=== PATIENT | female | born 1950 | race Hispanic/Latino ===

== ENCOUNTER 2018-09-20 07:05 | Emergency (ER) | payer OTHER ==
[2018-09-20] MEDS ORDERED: LIDOCAINE VISCOUS 2% SOLN 15 ML UDC ONE (07:40)
[2018-09-20] MEDS ORDERED: MAGNE/ALUM HYDROXD 30 ML UCUP ONE (07:40)
[2018-09-20 07:47] LABS: Absolute Lymphocytes (CBC) 2.1 K/uL (0.7-4.9); Absolute Monocytes 0.4 K/uL (0.1-1.3); Absolute Neutrophil 4.7 K/uL (1.8-8.0); Basophils % 0.5 % (0-1.3); Eosinophils % 3.8 % (0-4.4); Hematocrit 41.3 % (36.0-45.0); MPV 8.5 fL (7.6-11.3); Monocytes % 5.7 % (3.3-12.3); RBC Red Blood Cell Count 4.34 M/uL (3.86-4.86)
[2018-09-20 07:51] LABS: Protime INR 0.95
--- NOTE | 2018-09-20 08:11 | RAD REPORT ---
EXAM DESCRIPTION: RAD - Chest Single View - 09/20/2018 8:04 am CLINICAL HISTORY: CHEST PAIN Chest pain. COMPARISON: Chest Single View dated 03/21/2017; Chest Single View dated 08/12/2016; CHEST SINGLE VIEW dated 06/08/2015; CHEST SINGLE VIEW dated 04/16/2015 FINDINGS: Portable technique limits examination quality. The lungs are grossly clear. The heart is normal in size. No displaced fractures. IMPRESSION: No acute intrathoracic process suspected.
[2018-09-20 08:15] LABS: ALT/SGPT 35 U/L (12-78); AST/SGOT 25 U/L (15-37); Albumin 3.8 g/dL (3.4-5.0); Alkaline Phosphatase 96 U/L (45-117); BUN Blood Urea Nitrogen 14 mg/dL (7-18); Bicarbonate 27 mmol/L (21-32); Bilirubin Direct 0.2 mg/dL (0-0.2); Bilirubin Total 0.6 mg/dL (0.2-1.0); Glucose Level 116 mg/dL (74-106); Magnesium 2.1 mg/dL (1.8-2.4); NT PRO-BNP 62 pg/mL (<125); Protein, Total 7.4 g/dL (6.4-8.2); Sodium Level 141 mmol/L (136-145); Troponin (Emerg Dept Use Only) < 0.02 ng/mL (0.0-0.045)
--- NOTE | 2018-09-20 10:29 | EKG ---
Test Date: 2018-09-20 Test Time: 09:06:12 [place] Press Operator: JUVENAL MEASUREMENT RESULTS: Intervals: Rate: 50 GA: 176 QRSD: 82 QT: 408 QTc: 371 [place]: P: 19 GA: 176 QRS: -9 T: 1 INTERPRETIVE STATEMENTS: Sinus bradycardia with marked sinus arrhythmia Minimal voltage criteria for LVH, may be normal variant Borderline ECG Compared to ECG 08/20/2018 07:35:37 Sinus rhythm no longer present Electronically Signed On 09-20-18 10:28:42 PLATING TECHNICIAN by London Ball
--- NOTE | 2018-09-20 10:31 | EKG ---
Test Date: 2018-08-20 Test Time: 07:35:37 Manager [place]: JUVENAL MEASUREMENT RESULTS: Intervals: Rate: 60 W[place]: 168 QRSD: 82 QT: 378 QTc: 378 [place]: P: 21 WY: 168 QRS: -10 T: 14 INTERPRETIVE STATEMENTS: Sinus rhythm with marked sinus arrhythmia Minimal voltage criteria for LVH, may be normal variant Borderline ECG Compared to ECG 03/21/2017 01:04:26 Left ventricular hypertrophy now present Sinus bradycardia no longer present Electronically Signed On 09-20-18 10:30:06 TEST PILOT by London Ball
--- NOTE | 2018-09-20 10:44 | ER ---
Nurse's Notes [facility] Name: Katya Hinojosa Age: 68 yrs Sex: Female : 1950 Arrival Date: 09/20/2018 Time: 07:07 Bed 18 Private MD: Diagnosis: Chest pain, unspecified Presentation: 09/20 07:23 Presenting complaint: Patient states: i started having a burning sensation on my hj stomach that moves to my throat that started 1 am today; reports nausea, denies vomiting; reports chest pain; denies fever and chills;. Transition of care: patient was not received from another setting of care. Onset of symptoms was September 20, 2018. Risk Assessment: Do you want to hurt yourself or someone else? Patient reports no desire to harm self or others. Initial Sepsis Screen: Does the patient meet any 2 criteria? No. Patient's initial sepsis screen is negative. Does the patient have a suspected source of infection? No. Patient's initial sepsis screen is negative. Care prior to arrival: None. 07:23 Method Of Arrival: Ambulatory 07:23 Acuity: AMAYA 3 hj Triage Assessment: 07:26 General: Appears in no apparent distress. uncomfortable, Behavior is calm, cooperative, hj appropriate for age. Pain: Complains of pain in chest Pain radiates to back. EENT: No signs and/or symptoms were reported regarding the EENT system. Historical: - Allergies: 07:25 No Known Allergies; hj - Home Meds: 07:25 clonidine HCl 0.1 mg Oral tab PRN [Active]; levothyroxine 100 mcg oral tab 1 tab once hj daily [Active]; lisinopril 10 mg oral tab 1 tab once daily [Active]; - PMHx: 07:25 Diabetes - NIDDM; High Cholesterol; Hypertension; Hypothyroidism; hj - PSHx: 07:25 Thyroidectomy; hj - Immunization history:: Adult Immunizations up to date. - Social history:: Smoking status: Patient/guardian denies using tobacco, Patient/guardian denies using alcohol. - Ebola Screening: : Patient negative for fever greater than or equal to 101.5 degrees Fahrenheit, and additional compatible Ebola Virus Disease symptoms Patient denies exposure to infectious person Patient denies travel to an Ebola-affected area in the 21 days before illness onset. Screenin:26 Abuse screen: Denies threats or abuse. Denies injuries from another. Nutritional hj screening: No deficits noted. Tuberculosis screening: No symptoms or risk factors identified. Fall Risk None identified. Assessment: 07:26 Respiratory: Airway is patent Respiratory effort is even, unlabored, Respiratory hj pattern is regular, symmetrical, Breath sounds are clear. EENT: 07:27 EENT: Throat Reports pain. hj 07:30 General: Appears in no apparent distress. uncomfortable, Behavior is calm, cooperative, hj appropriate for age. Pain: Complains of pain in chest Pain radiates to back. Neuro: Level of Consciousness is awake, alert, obeys commands, Oriented to person, place, time, situation, Appropriate for age. Cardiovascular: Rhythm is sinus bradycardia. GI: No signs and/or symptoms were reported involving the gastrointestinal system. : No signs and/or symptoms were reported regarding the genitourinary system. Derm: No signs and/or symptoms reported regarding the dermatologic system. Musculoskeletal: No signs and/or symptoms reported regarding the musculoskeletal system. 08:30 Reassessment: Patient and/or family updated on plan of care and expected duration. Pain hj level reassessed. Patient is alert, oriented x 3, equal unlabored respirations, skin warm/dry/pink. awaiting results and POC;. 09:00 Reassessment: HR drops to 43; MD notified with orders to repeat cardiac enzymes and hj EKG;. 10:55 Reassessment: Patient and/or family updated on plan of care and expected duration. Pain hj level reassessed. Patient is alert, oriented x 3, equal unlabored respirations, skin warm/dry/pink. Patient states feeling better. Patient states symptoms have improved. Vital Signs: 07:27 BP 128 / 65; Pulse 56; Resp 18; Temp 98.1(TE); Pulse Ox 100% on R/A; Weight 90.72 kg; hj Height 5 ft. 5 in. (165.10 cm); Pain 510; 08:30 BP 143 / 76; Pulse 60; Resp 18; Pulse Ox 100% on R/A; hj 09:00 BP 138 / 75; Pulse 43; Resp 18; Pulse Ox 100% on R/A; hj 09:40 BP 140 / 67; Pulse 48; Resp 18; Pulse Ox 100% on R/A; hj 10:55 BP 138 / 68; Pulse 50; Resp 18; Pulse Ox 100% on R/A; hj 07:27 Body Mass Index 33.28 (90.72 kg, 165.10 cm) hj 09:00 notified; with orders; hj ED Course: 07:07 Patient arrived in ED. rg4 07:13 Carlos Yap, RN is Primary Nurse. hj 07:13 Pedro Anderson PA is PHCP. jmm 07:13 Simon Chen MD is Attending Physician. jmm 07:25 Triage completed. hj 07:27 Arm band placed on right wrist. hj 07:27 Patient has correct armband on for positive identification. Placed in gown. Bed in low hj position. Call light in reach. Side rails up X 1. Adult w/ patient. 07:36 Initial lab(s) drawn, by me, sent to lab. Inserted saline lock: 22 gauge in right mh5 antecubital area, using aseptic technique. Blood collected. 07:37 Warm blanket given. school lunch monitor on. Pulse ox on. NIBP on. mh5 07:38 Basic Metabolic Panel Sent. mh5 07:38 CBC with Diff Sent. mh5 07:38 LFT's Sent. mh5 07:38 Magnesium Sent. mh5 07:38 NT PRO-BNP Sent. mh5 07:38 PT-INR Sent. mh5 07:38 Troponin (emerg Dept Use Only) Sent. mh5 07:44 EKG done, by technical marketing consultant. reviewed by Pedro DIAS. at1 08:02 X-ray completed. Portable x-ray completed in exam room. Patient tolerated procedure jb2 well. 08:08 XRAY Chest (1 view) In Process Unspecified. EDMS 09:24 EKG done, by technical marketing consultant. reviewed by Pedro DIAS. at1 10:43 London Ball MD is Referral Physician. jmm 10:55 No provider procedures requiring assistance completed. IV discontinued, intact, hj bleeding controlled, No redness/swelling at site. Pressure dressing applied. Administered Medications: 07:22 Drug: GI Cocktail without - (Maalox Suspension 30 ml, Lidocaine Liquid 2 % 15 hj ml) Route: PO; 09:01 Follow up: Response: No adverse reaction hj Outcome: 10:43 Discharge ordered by . jmm 10:56 Discharged to home ambulatory. hj 10:56 Condition: stable 10:56 Discharge instructions given to patient, Instructed on discharge instructions, follow up and referral plans. medication usage, Demonstrated understanding of instructions, follow-up care, medications, Prescriptions given X 1. 10:57 Patient left the ED. Signatures: Dispatcher [employer] EDMS Pedro Anderson PA PA jmm Buechter, Jesse jb2 Elenita Sultana, alterations manager EKG Tat1 Carlos Yap, SEKOU RN Lis Smith Katya Vazquez [facility] Corrections: (The following items were deleted from the chart) 09:40 07:27 90.72 kg; Height 5 ft. 5 in.; BMI: 33.2; Pain 5/10; jeremie chao
--- NOTE | 2018-09-20 10:44 | EDPHYS ---
Physician Documentation [facility] Name: Katya Hinojosa Age: 68 yrs Sex: Female : 1950 Arrival Date: 09/20/2018 Time: 07:07 Bed 18 Private MD: ED Physician Simon Chen HPI: 09/20 07:20 This 68 yrs old Female presents to ER via Ambulatory with complaints of Sore jmm Throat. 07:20 The patient presents with sore throat. Onset: The symptoms/episode began/occurred jmm gradually, at 01:00. Associated signs and symptoms: Pertinent positives: Pertinent negatives fever, shortness of breath. This is a 68 year old female with a history of DM, HTN, hypothyroidism that presents to the ED with complaints of sore throat radiating down her sternum region and to her back Patient denies fever, cough, shortness of breath. Patient denies abdominal pain, denies vomiting or diarrhea. Patient states that she ate house sauce before going to bed but denies similar symptoms in the past. . Historical: - Allergies: 07:25 No Known Allergies; hj - Home Meds: 07:25 clonidine HCl 0.1 mg Oral tab PRN [Active]; levothyroxine 100 mcg oral tab 1 tab once hj daily [Active]; lisinopril 10 mg oral tab 1 tab once daily [Active]; - PMHx: 07:25 Diabetes - NIDDM; High Cholesterol; Hypertension; Hypothyroidism; hj - PSHx: 07:25 Thyroidectomy; hj - Immunization history:: Adult Immunizations up to date. - Social history:: Smoking status: Patient/guardian denies using tobacco, Patient/guardian denies using alcohol. - Ebola Screening: : Patient negative for fever greater than or equal to 101.5 degrees Fahrenheit, and additional compatible Ebola Virus Disease symptoms Patient denies exposure to infectious person Patient denies travel to an Ebola-affected area in the 21 days before illness onset. ROS: 07:20 Constitutional: Negative for fever, chills, and weight loss, Respiratory: Negative for jmm shortness of breath, cough, wheezing, and pleuritic chest pain. 07:20 Abdomen/GI: Negative for abdominal pain, nausea, vomiting, diarrhea, and constipation, Back: Negative for injury and pain. 07:20 ENT: Positive for sore throat. 07:20 Cardiovascular: Positive for chest pain. 07:20 All other systems are negative. Exam: 07:20 Constitutional: This is a well developed, well nourished patient who is awake, alert, jmm and in no acute distress. Head/Face: atraumatic. Eyes: EOMI, no conjunctival erythema appreciated ENT: Moist Mucus Membranes Neck: Trachea midline, Supple Chest/axilla: Normal chest wall appearance and motion. Cardiovascular: Regular rate and rhythm. No edema appreciated Respiratory: Normal respirations, no respiratory distress appreciated 07:20 Back: Normal ROM Skin: General appearance color normal MS/ Extremity: Moves all extremities, no obvious deformities appreciated, no edema noted to the lower extremities Neuro: Awake and alert, normal gait Psych: Behavior is normal, Mood is normal, Patient is cooperative and pleasant 07:20 Abdomen/GI: Inspection: abdomen appears normal, Bowel sounds: normal, Palpation: abdomen is soft and non-tender, in all quadrants. Vital Signs: 07:27 BP 128 / 65; Pulse 56; Resp 18; Temp 98.1(TE); Pulse Ox 100% on R/A; Weight 90.72 kg; hj Height 5 ft. 5 in. (165.10 cm); Pain 5/10; 08:30 BP 143 / 76; Pulse 60; Resp 18; Pulse Ox 100% on R/A; hj 09:00 BP 138 / 75; Pulse 43; Resp 18; Pulse Ox 100% on R/A; hj 09:40 BP 140 / 67; Pulse 48; Resp 18; Pulse Ox 100% on R/A; hj 10:55 BP 138 / 68; Pulse 50; Resp 18; Pulse Ox 100% on R/A; hj 07:27 Body Mass Index 33.28 (90.72 kg, 165.10 cm) 09:00 MD notified; with orders; MDM: 07:20 Patient medically screened. mechelle 10:40 Data reviewed: vital signs, nurses notes. Test interpretation: by ED physician or jmm midlevel provider: ECG. Counseling: I had a detailed discussion with the patient and/or guardian regarding: the historical points, exam findings, and any diagnostic results supporting the discharge/admit diagnosis, lab results, radiology results, to return to the emergency department if symptoms worsen or persist or if there are any questions or concerns that arise at home. Response to treatment: the patient's symptoms have mildly improved after treatment. ED course: Repeat enzymes negative. Symptoms appear most likely GI in nature. Due to comorbidities, it is advised to follow up with cardiology and given strict return precautions. Patient understood and agrees with the plan of care. . 09/20 07:20 Order name: Basic Metabolic Panel; Complete Time: 08:41 [facility] 09/20 07:20 Order name: CBC with Diff; Complete Time: 08:05 [facility] 09/20 07:20 Order name: LFT's; Complete Time: 08:41 [facility] 09/20 07:20 Order name: Magnesium; Complete Time: 08:41 [facility] 09/20 07:20 Order name: NT PRO-BNP; Complete Time: 08:41 [facility] 09/20 07:20 Order name: PT-INR; Complete Time: 08:05 [facility] 09/20 07:20 Order name: Troponin (emerg Dept Use Only); Complete Time: 08:41 [facility] 09/20 07:20 Order name: XRAY Chest (1 view); Complete Time: 08:12 [facility] 09/20 07:20 Order name: EKG; Complete Time: 07:21 [facility] 09/20 07:20 Order name: Cardiac monitoring; Complete Time: 07:22 [facility] 09/20 09:01 Order name: EKG; Complete Time: 09:03 09/20 09:11 Order name: Troponin (emerg Dept Use Only); Complete Time: 10:04 09/20 09:35 Order name: TSH; Complete Time: 10:31 [facility] 09/20 07:20 Order name: EKG - Nurse/Tech; Complete Time: 07:32 [facility] 09/20 07:20 Order name: IV Saline Lock; Complete Time: 07:32 [facility] 09/20 07:20 Order name: Labs collected and sent; Complete Time: 07:32 [facility] 09/20 07:20 Order name: O2 Per Protocol; Complete Time: 07:22 [facility] 09/20 07:20 Order name: O2 Sat Monitoring; Complete Time: 07:23 [facility] 09/20 09:01 Order name: Repeat Cardiac Enzymes at; Complete Time: 09:09 Administered Medications: 07:22 Drug: GI Cocktail without - (Maalox Suspension 30 ml, Lidocaine Liquid 2 % 15 hj ml) Route: PO; 09:01 Follow up: Response: No adverse reaction Disposition: 11:45 Co-signature as Attending Physician, Simon Chen MD. rn Disposition: 09/20/18 10:43 Discharged to Home. Impression: Chest pain, unspecified. - Condition is Stable. - Discharge Instructions: Nonspecific Chest Pain. - Prescriptions for omeprazole 40 mg Oral capsule,delayed release(DR/EC) - take 1 capsule by ORAL route once daily before a meal; 14 capsule. - Medication Reconciliation Form, Thank You Letter, Antibiotic Education, Prescription Opioid Use form. - Follow up: London Ball MD; When: 2 - 3 days; Reason: Recheck today's complaints, Continuance of care, Re-evaluation by your physician. Signatures: Dispatcher [employer] EDMS Wilner Beth MD MD cha Mickail, Joel, PA PA jmm Nieto, Roman, MD MD rn Joaquin, Henry, RN RN hj Corrections: (The following items were deleted from the chart) 10:43 10:43 09/20/2018 10:43 Discharged to Home. Impression: Other chest pain. Condition is [facility] Stable. Forms are Medication Reconciliation Form, Thank You Letter, Antibiotic Education, Prescription Opioid Use. Follow up: London Ball; When: 2 - 3 days; Reason: Recheck today's complaints, Continuance of care, Re-evaluation by your physician. [facility] 10:57 10:43 09/20/2018 10:43 Discharged to Home. Impression: Chest pain, unspecified. Condition is Stable. Forms are Medication Reconciliation Form, Thank You Letter, Antibiotic Education, Prescription Opioid Use. Follow up: London Ball; When: 2 - 3 days; Reason: Recheck today's complaints, Continuance of care, Re-evaluation by your physician. [facility]
[2018-09-20 11:07] VITALS: TEMP 98.1; O2SAT 100
[2018-09-20 11:16] VITALS: BP 138/68
== END 2018-09-20 10:57 | disposition home or self-care (01) ==
LOC: ER 07:05
DX: R07.9 Chest pain, unspecified (principal); I10 Essential (primary) hypertension; E11.9 Type 2 diabetes mellitus without complications; E03.9 Hypothyroidism, unspecified; E78.00 Pure hypercholesterolemia, unspecified
CPT/HCPCS: 36415; 71045; 80048; 80076; 83735; 83880; 84443; 84484; 85025; 85610; 93005; 99285

== ENCOUNTER 2019-04-25 21:08 | Emergency (ER) | payer OTHER ==
--- OUTSIDE RECORDS SUMMARY | 2019-04-25 21:09 | XMS REPORT ---
:1950 [facility] Organization [facility] Address [address] [place] [address] Dr. Balderas [address] [place] [id number] Care Team Providers Name Role Phone Unavailable Unavailable Unavailable Problems This patient has no known problems. Allergies, Adverse Reactions, Alerts This patient has no known allergies or adverse reactions. Medications This patient has no known medications.
--- OUTSIDE RECORDS SUMMARY | 2019-04-25 21:09 | XMS REPORT ---
:1950 Author Organization [employer] Care Team Providers Name Role Phone Jayesh Reid Provider Role Unavailable Allergies, Adverse Reactions, Alerts Substance Reaction Event Type N.K.D.A. Info Not Available Non Drug Allergy Problems Problem Type Condition Code Onset Dates Condition Status Assessment Acquired hypothyroidism E03.9 Active Assessment Gastroesophageal reflux disease K21.9 Active without esophagitis Assessment History of diabetes mellitus Z86.39 Active Assessment Primary osteoarthritis, unspecified M19.91 Active site Problem Gastroesophageal reflux disease K21.9 Active without esophagitis Problem History of diabetes mellitus Z86.39 Active Problem Primary osteoarthritis, unspecified M19.91 Active site Assessment Essential hypertension I10 Active Problem Essential hypertension I10 Active Problem Acquired hypothyroidism E03.9 Active Medications Medication Code Code Instructions Start End Status Dosage System Date Date [place] [facility] 17344156997 262 MG/15ML November Active 30 ml as Subsalicylate Orally Four 2018 30, needed times a day 2018 Prilosec OTC ND 86647641795 20 MG Orally Sep 28, Active 1 tablet Once a day 2018 Lisinopril ND 37876783368 10 MG Orally Sep 28, Active 1 tablet Once a day 2018 Levothyroxine [facility] 09389291853 100 MCG Orally Active 1 tablet Sodium Once a day on an empty stomach in the morning Results No Known Results Summary Purpose [employer]ClinicalWorks Submission
--- OUTSIDE RECORDS SUMMARY | 2019-04-25 21:09 | XMS REPORT ---
:1950 Author Organization [employer] Care Team Providers Name Role Phone Jayesh Reid Provider Role Unavailable Allergies, Adverse Reactions, Alerts Substance Reaction Event Type N.K.D.A. Info Not Available Non Drug Allergy Problems Problem Type Condition Code Onset Dates Condition Status Assessment Acquired hypothyroidism E03.9 Active Assessment Viral gastroenteritis A08.4 Active Assessment Essential hypertension I10 Active Assessment Encounter for screening mammogram Z12.31 Active for malignant neoplasm of breast Assessment Encounter for general adult medical Z00.00 Active examination without abnormal findings Problem Gastroesophageal reflux disease K21.9 Active without esophagitis Problem History of diabetes mellitus Z86.39 Active Problem Primary osteoarthritis, unspecified M19.91 Active site Assessment History of diabetes mellitus Z86.39 Active Problem Essential hypertension I10 Active Problem Acquired hypothyroidism E03.9 Active Medications Medication Code Code Instructions Start End Status Dosage System Date Date Levothyroxine ND 02632501890 100 MCG Orally Active 1 tablet Sodium Once a day on an empty stomach in the morning Prilosec OTC ND 36178361100 20 MG Orally Sep 28, Active 1 tablet Once a day 2018 Lisinopril ND 56631968166 10 MG Orally Sep 28, Active 1 tablet Once a day 2018 Promethazine HCl ND 84003547505 25 MG Orally February 13February Active 1 tablet every 6 hrs 2018 07, as needed 2018 Results No Known Results Summary Purpose eClinicalWorks Submission
--- OUTSIDE RECORDS SUMMARY | 2019-04-25 21:09 | XMS REPORT ---
:1950 Author Organization [employer] Care Team Providers Name Role Phone JeanetteJayesh Provider Role Unavailable Allergies, Adverse Reactions, Alerts Substance Reaction Event Type N.K.D.A. Info Not Available Non Drug Allergy Problems Problem Type Condition Code Onset Dates Condition Status Assessment Language barrier affecting health Z78.9 Active care Assessment Sinus bradycardia R00.1 Active Assessment History of diabetes mellitus Z86.39 Active Assessment Acquired hypothyroidism E03.9 Active Problem Acquired hypothyroidism E03.9 Active Problem Gastroesophageal reflux disease K21.9 Active without esophagitis Problem Essential hypertension I10 Active Assessment Essential hypertension I10 Active Assessment Gastroesophageal reflux disease K21.9 Active without esophagitis Problem History of diabetes mellitus Z86.39 Active Medications Medication Code Code Instructions Start End Status Dosage System Date Date Levothyroxine [facility] 87479366049 100 MCG Orally Active 1 tablet Sodium Once a day on an empty stomach in the morning Lisinopril ND 18028637895 20 MG Orally Sep 28, Active 1 tablet Once a day 2018 Lisinopril ND 43480082458 10 MG Orally Active 1 tablet Once a day Prilosec OTC [facility] 57560787517 20 MG Orally b , Active 1 tablet Once a day 2018 Results No Known Results Summary Purpose eClinicalWorks Submission
--- OUTSIDE RECORDS SUMMARY | 2019-04-25 21:09 | XMS REPORT ---
:1950 Author Organization [employer] Care Team Providers Name Role Phone Patsy Coleman Provider Role Unavailable Allergies, Adverse Reactions, Alerts Substance Reaction Event Type N.K.D.A. Info Not Available Non Drug Allergy Problems Problem Type Condition Code Onset Dates Condition Status Assessment Encounter for gynecological Z01.419 Active examination without abnormal finding Problem Essential hypertension I10 Active Assessment BMI 32.0-32.9,adult Z68.32 Active Assessment Screening for colon cancer Z12.11 Active Problem Encounter for gynecological Z01.419 Active examination without abnormal finding Problem BMI 32.0-32.9,adult Z68.32 Active Problem Screening for colon cancer Z12.11 Active Problem Acquired hypothyroidism E03.9 Active Problem History of diabetes mellitus Z86.39 Active Problem Primary osteoarthritis, unspecified M19.91 Active site Problem Gastroesophageal reflux disease K21.9 Active without esophagitis Medications Medication Code Code Instructions Start End Status Dosage System Date Date Prilosec OTC NDC 28196421474 20 MG Orally Sep 28, Active 1 tablet Once a day 2018 Levothyroxine ND 51439542746 100 MCG Orally Active 1 tablet on Sodium Once a day an empty stomach in the morning Lisinopril NDC 35270780068 10 MG Orally Sep 28, Active 1 tablet Once a day 2018 Nystatin ND 75765511193 449392 UNIT/GM Mar 20, Active 1 application Externally 2019 to affected Twice a day area Results Name Result Date Reference Range Unit Abnormality Flag Occult (Guiac) Blood, Fecal, IA ----Occult Blood, Fecal, IA neg [id number] Summary Purpose eClinicalWorks Submission
--- OUTSIDE RECORDS SUMMARY | 2019-04-25 21:09 | XMS REPORT ---
:1950 Author Organization [employer] Care Team Providers Name Role Phone Jayesh Reid Provider Role Unavailable Allergies No Known Allergies Problems Problem Type Condition Code Onset Dates Condition Status Problem Gastroesophageal reflux disease K21.9 Active without esophagitis Problem History of diabetes mellitus Z86.39 Active Problem Primary osteoarthritis, unspecified M19.91 Active site Problem Essential hypertension I10 Active Problem Acquired hypothyroidism E03.9 Active Medications No Known Medications Results No Known Results Summary Purpose [employer] Submission
[2019-04-25] MEDS ORDERED: DIPHENHYDRAMINE 50 MG/ML VIAL ONE (22:38)
[2019-04-25] MEDS ORDERED: NA CHLORIDE 0.9% 1,000 ML ONE (22:38)
[2019-04-25] MEDS ORDERED: METOCLOPRAMIDE 10 MG/2mL INJ ONE (22:38)
[2019-04-25 22:40] LABS: Absolute Lymphocytes (CBC) 2.7 K/uL (0.7-4.9); Basophils % 0.5 % (0-1.3); Hematocrit 37.7 % (36.0-45.0); Lymphocytes % 31.9 % (15.3-44.8); MPV 8.4 fL (7.6-11.3); RBC Red Blood Cell Count 3.94 M/uL (3.86-4.86)
[2019-04-25 22:56] LABS: ALT/SGPT 43 U/L (12-78); AST/SGOT 33 U/L (15-37); Albumin 3.4 g/dL (3.4-5.0); Alkaline Phosphatase 98 U/L (45-117); BUN Blood Urea Nitrogen 16 mg/dL (7-18); Bicarbonate 25 mmol/L (21-32); Bilirubin Total 0.3 mg/dL (0.2-1.0); Glucose Level 135 mg/dL (74-106); Potassium 3.8 mmol/L (3.5-5.1); Protein, Total 6.5 g/dL (6.4-8.2); Sodium Level 142 mmol/L (136-145)
--- NOTE | 2019-04-26 00:45 | EDPHYS ---
Physician Documentation [facility] Name: Katya Hinojosa Age: 69 yrs Sex: Female : 1950 Arrival Date: 04/25/2019 Time: 21:20 Bed 15 Private MD: ED Physician Wilner Beth HPI: 04/25 22:02 This 69 yrs old Female presents to ER via Ambulatory with complaints of High jmm Blood Pressure. 22:02 The patient complains of pain to the forehead, right eye and left eye. Onset: The jmm symptoms/episode began/occurred gradually, 5 hour(s) ago. Associated signs and symptoms: Pertinent positives: blurred vision, Pertinent negatives: vomiting. Headache History: The patient has had previous headaches and this one is similar to previous episodes. This is a 69 year old female with a history of htn, hypothyroidism that presents to the ED with complaints of headache which began on the left side of the head with blurred vision. Headache is now retro orbital bilaterally. Vision is not normal. Denies unilateral weakness or numbness. . Historical: - Allergies: 21:37 No Known Allergies; aa5 - Home Meds: 21:37 lisinopril 10 mg Oral tab 1 tab once daily [Active]; levothyroxine 100 mcg tab 1 tab aa5 once daily [Active]; clonidine HCl 0.1 mg Oral tab PRN [Active]; - PMHx: 21:37 Hypertension; Hypothyroidism; aa5 - PSHx: 21:37 Thyroidectomy; aa5 - Immunization history:: Adult Immunizations unknown. - Social history:: Smoking status: Patient/guardian denies using tobacco. - Ebola Screening: : No symptoms or risks identified at this time. ROS: 22:02 Constitutional: Negative for fever, chills, and weight loss, Cardiovascular: Negative jmm for chest pain, palpitations, and edema, Respiratory: Negative for shortness of breath, cough, wheezing, and pleuritic chest pain. 22:02 Eyes: Positive for blurry vision. 22:02 Neuro: Positive for headache. 22:02 All other systems are negative. Exam: 22:02 Constitutional: This is a well developed, well nourished patient who is awake, alert, jmm and in no acute distress. Head/Face: atraumatic. Eyes: EOMI, no conjunctival erythema appreciated ENT: Moist Mucus Membranes Neck: Trachea midline, Supple Chest/axilla: Normal chest wall appearance and motion. Cardiovascular: Regular rate and rhythm. No edema appreciated Respiratory: Normal respirations, no respiratory distress appreciated Abdomen/GI: Non distended, soft Back: Normal ROM Skin: General appearance color normal MS/ Extremity: Moves all extremities, no obvious deformities appreciated, no edema noted to the lower extremities 22:02 Neuro: Orientation: is normal, Mentation: is normal, Memory: is normal, Cerebellar function: normal finger to nose testing. 22:02 Psych: Behavior/mood is pleasant, cooperative. Vital Signs: 21:38 BP 142 / 65; Pulse 72; Resp 18 S; Temp 98.5(O); Pulse Ox 97% on R/A; Weight 89.36 kg aa5 (R); Height 5 ft. 5 in. (165.10 cm) (R); Pain 9/10; 22:15 BP 138 / 54; Pulse 66; Resp 16; Pulse Ox 98% on R/A; jb4 23:15 BP 128 / 55; Pulse 55; Resp 16; Pulse Ox 98% on R/A; jb4 04/26 00:00 BP 117 / 56; Pulse 49; Resp 16; Pulse Ox 98% on R/A; jb4 01:30 BP 111 / 55; Pulse 55; Resp 16; Pulse Ox 98% on R/A; jb4 04/25 21:38 Body Mass Index 32.78 (89.36 kg, 165.10 cm) aa5 MDM: 04/25 21:47 Patient medically screened. [facility] 04/26 00:40 Data reviewed: vital signs, nurses notes. Counseling: I had a detailed discussion with anita the patient and/or guardian regarding: the historical points, exam findings, and any diagnostic results supporting the discharge/admit diagnosis, lab results, radiology results, the need for outpatient follow up, to return to the emergency department if symptoms worsen or persist or if there are any questions or concerns that arise at home. ED course: ULRICH is relieved in the ED. Patient advised to follow up with neuro for further evaluation of headache. Patient is otherwise given strict return precautions. patient understood and agrees with the plan of care. . 04/25 22:01 Order name: CBC with Diff; Complete Time: 23:00 anita 04/25 22:01 Order name: CMP; Complete Time: 23:00 [facility] 04/25 22:01 Order name: CT Head Brain wo Cont [facility] 04/25 22:01 Order name: Saline Lock; Complete Time: 22:22 [facility] Administered Medications: 04/25 23:01 Drug: diphenhydrAMINE 12.5 mg Route: IVP; Site: right antecubital; [facility] 04/26 01:25 Follow up: Response: No adverse reaction [facility] 04/25 23:05 Drug: NS 0.9% 1000 ml Route: IV; Rate: 1 bolus; Site: right antecubital; [facility] 04/26 01:25 Follow up: Response: No adverse reaction; IV Status: Completed infusion; IV Intake: [facility] 1000ml 04/25 23:05 Drug: Reglan 10 mg {Note: administered in Bolus of NS.} Route: IVP; Site: right [facility]; 04/26 01:25 Follow up: Response: No adverse reaction [facility] Disposition: 04/26/19 00:41 Discharged to Home. Impression: Headache. - Condition is Stable. - Discharge Instructions: Migraine Headache. - Prescriptions for Fiorinal 50- 325-40 mg Oral Capsule - take 1 capsule by ORAL route every 4 hours As needed - not to exceed 6 capsules per day; 20 capsule. - Medication Reconciliation Form, Thank You Letter, Antibiotic Education, Prescription Opioid Use form. - Follow up: Christopher Hoover MD; When: 2 - 3 days; Reason: Recheck today's complaints, Continuance of care, Re-evaluation by your physician. Addendum: 04/30/2019 08:24 Co-signature as Attending Physician, Wilner Beth MD I agree with the assessment and c ulrich plan of care. Signatures: Dispatcher [employer] EDWilner Yusuf MD MD cha Mickail, Joel, PA PA Amna Pratt, RN RN aa5 Nehemiah Lundberg, SEKOU RN jb4 Corrections: (The following items were deleted from the chart) 04/26 01:35 00:41 04/26/2019 00:41 Discharged to Home. Impression: Headache. Condition is Stable. jb4 Forms are Medication Reconciliation Form, Thank You Letter, Antibiotic Education, Prescription Opioid Use. Follow up: Christopher Hooevr; When: 2 - 3 days; Reason: Recheck today's complaints, Continuance of care, Re-evaluation by your physician. anita
--- NOTE | 2019-04-26 00:45 | ER ---
Nurse's Notes [facility] Name: Katya Hinojosa Age: 69 yrs Sex: Female : 1950 Arrival Date: 04/25/2019 Time: 21:20 Bed 15 Private MD: Diagnosis: Headache Presentation: 04/25 21:35 Presenting complaint: Patient states: frontal headache that began 2-3 days ago, pt aa5 reports pain to left side of head is worse than to right side of head. Pt also reports nausea, denies vomiting. Pt states "the left side of my face is hurting too so maybe is my teeth". Transition of care: patient was not received from another setting of care. Onset of symptoms was April 2019. Risk Assessment: Do you want to hurt yourself or someone else? Patient reports no desire to harm self or others. Initial Sepsis Screen: Does the patient meet any 2 criteria? No. Patient's initial sepsis screen is negative. Does the patient have a suspected source of infection? No. Patient's initial sepsis screen is negative. Care prior to arrival: None. 21:35 Method Of Arrival: Ambulatory aa5 21:35 Acuity: AMAYA 3 aa5 Historical: - Allergies: 21:37 No Known Allergies; aa5 - Home Meds: 21:37 lisinopril 10 mg Oral tab 1 tab once daily [Active]; levothyroxine 100 mcg tab 1 tab aa5 once daily [Active]; clonidine HCl 0.1 mg Oral tab PRN [Active]; - PMHx: 21:37 Hypertension; Hypothyroidism; aa5 - PSHx: 21:37 Thyroidectomy; aa5 - Immunization history:: Adult Immunizations unknown. - Social history:: Smoking status: Patient/guardian denies using tobacco. - Ebola Screening: : No symptoms or risks identified at this time. Screenin:50 Abuse screen: Denies threats or abuse. Nutritional screening: No deficits noted. jb4 Tuberculosis screening: No symptoms or risk factors identified. Fall Risk None identified. Assessment: 21:50 General: Appears in no apparent distress. uncomfortable, Behavior is calm, cooperative, jb4 appropriate for age. Pain: Complains of pain in forehead Pain does not radiate. Pain currently is 8 out of 10 on a pain scale. Quality of pain is described as pressure. Neuro: Level of Consciousness is awake, alert, obeys commands, Oriented to person, place, time, situation. Cardiovascular: Patient's skin is warm and dry. Respiratory: Airway is patent Respiratory effort is even, unlabored, Respiratory pattern is regular, symmetrical. GI: No deficits noted. No signs and/or symptoms were reported involving the gastrointestinal system. : No deficits noted. No signs and/or symptoms were reported regarding the genitourinary system. EENT: No deficits noted. No signs and/or symptoms were reported regarding the EENT system. Derm: Skin is intact, Skin is pink, warm \\T\\ dry. Musculoskeletal: Circulation, motion, and sensation intact. 23:00 Reassessment: Patient appears in no apparent distress at this time. Patient and/or jb4 family updated on plan of care and expected duration. Pain level reassessed. Patient is alert, oriented x 3, equal unlabored respirations, skin warm/dry/pink. 04/26 00:00 Reassessment: Patient appears in no apparent distress at this time. Patient and/or jb4 family updated on plan of care and expected duration. Pain level reassessed. Patient is alert, oriented x 3, equal unlabored respirations, skin warm/dry/pink. Patient states feeling better. 01:30 Reassessment: Patient appears in no apparent distress at this time. Patient and/or jb4 family updated on plan of care and expected duration. Pain level reassessed. Patient is alert, oriented x 3, equal unlabored respirations, skin warm/dry/pink. Vital Signs: 04/25 21:38 BP 142 / 65; Pulse 72; Resp 18 S; Temp 98.5(O); Pulse Ox 97% on R/A; Weight 89.36 kg aa5 (R); Height 5 ft. 5 in. (165.10 cm) (R); Pain 9/10; 22:15 BP 138 / 54; Pulse 66; Resp 16; Pulse Ox 98% on R/A; jb4 23:15 BP 128 / 55; Pulse 55; Resp 16; Pulse Ox 98% on R/A; jb4 04/26 00:00 BP 117 / 56; Pulse 49; Resp 16; Pulse Ox 98% on R/A; jb4 01:30 BP 111 / 55; Pulse 55; Resp 16; Pulse Ox 98% on R/A; jb4 04/25 21:38 Body Mass Index 32.78 (89.36 kg, 165.10 cm) aa5 ED Course: 04/25 21:20 Patient arrived in ED. aa5 21:35 Arm band placed on. aa5 21:36 Triage completed. aa5 21:46 Pedro Anderson PA is PHCP. jmm 21:46 Wilner Beth MD is Attending Physician. jmm 21:50 Patient has correct armband on for positive identification. Bed in low position. Call jb4 light in reach. Side rails up X 1. Pulse ox on. NIBP on. 21:55 Nehemiah Lundberg, SEKOU is Primary Nurse. jb 22:23 Initial lab(s) drawn, by pa, sent to lab. Inserted saline lock: 20 gauge in right em1 antecubital area, using aseptic technique. Blood collected. 22:42 CT completed. Patient tolerated procedure well. Patient moved to CT via stretcher. Patient moved back from CT. 22:46 CT Head Brain wo Cont In Process Unspecified. EDMS 04/26 00:41 Christopher Hoover MD is Referral Physician. [facility] 01:30 No provider procedures requiring assistance completed. IV discontinued, intact, jb4 bleeding controlled, No redness/swelling at site. Pressure dressing applied. Administered Medications: 04/25 23:01 Drug: diphenhydrAMINE 12.5 mg Route: IVP; Site: right antecubital; jb4 04/26 01:25 Follow up: Response: No adverse reaction jb4 04/25 23:05 Drug: NS 0.9% 1000 ml Route: IV; Rate: 1 bolus; Site: right antecubital; jb4 04/26 01:25 Follow up: Response: No adverse reaction; IV Status: Completed infusion; IV Intake: jb4 1000ml 04/25 23:05 Drug: Reglan 10 mg {Note: administered in Bolus of NS.} Route: IVP; Site: right jb4 antecubital; 04/26 01:25 Follow up: Response: No adverse reaction jb4 Intake: 01:25 IV: 1000ml; Total: 1000ml. jb4 Outcome: 00:41 Discharge ordered by . jm 01:30 Discharged to home ambulatory, with family. [facility] 01:30 Condition: stable 01:30 Discharge instructions given to patient, family, Instructed on discharge instructions, follow up and referral plans. medication usage, Demonstrated understanding of instructions, follow-up care, medications, Prescriptions given X 1. 01:35 Patient left the ED. jb4 Signatures: Dispatcher [employer] EDMS Pedro Anderson PA PA jmm Hagler, Ervin eh Martinez, Eric em1 Amna Roman RN RN aa5 Nehemiah Lundberg RN RN jb4 Corrections: (The following items were deleted from the chart) 04/25 21:38 21:35 Presenting complaint: Patient states: frontal headache that began 2-3 days ago, aa5 pt reports pain to left side of head is worse than to right side of head. Pt also reports nausea, denies vomiting. aa5 21:38 21:38 BP 142 / 65; Pulse 72bpm; Resp 18bpm; Spontaneous; Pulse Ox 97% RA; Temp 98.5F aa5 Oral; 89.36 kg Reported; Height 5 ft. 5 in. Reported; BMI: 32.7; aa5
[2019-04-26 01:41] VITALS: TEMP 98.5
[2019-04-26 01:43] VITALS: O2SAT 98
[2019-04-26 01:46] VITALS: BP 117/56
--- NOTE | 2019-04-27 13:30 | RAD REPORT ---
EXAM DESCRIPTION: Head Brain Wo Cont CLINICAL HISTORY: 69 years Female, HEADACHE CLINICAL HISTORY: 5 mm axial images were obtained along with 3 mm reformatted coronal and sagittal i mages. This exam was performed according to our departmental dose-optimization program, which includes autom ated exposure control, adjustment of the mA and/or kV according to patient size and/or use of iterati ve reconstruction technique. COMPARISON: None. FINDINGS: No acute abnormal extracerebral fluid collections are demonstrated. The cortical sulci, ventricles, and cisterns are within normal limits. There are no areas of altered attenuation identified to suggest acute hemorrhage or infarction. There is a calcified mass along the superior aspect of the left tentorium which is stable prior study . This measures 0.9 x 0.7 cm. This may represent a calcified meningioma.. The visualized portions of the paranasal sinuses and mastoid air cells are clear. IMPRESSION: 1. There are no acute intracranial abnormalities. Electronically signed by: Jordin Lim MD 04/25/2019 11:03 PM CDT Due to temporary technical issues with the PACS/Fluency reporting system, reports are being signed by the in house radiologist as a courtesy to ensure prompt reporting. The interpreting radiologist is f ully responsible for the content of the report.
== END 2019-04-26 01:35 | disposition home or self-care (01) ==
LOC: ER 21:08
DX: R51 Headache (principal); I10 Essential (primary) hypertension; E03.9 Hypothyroidism, unspecified
CPT/HCPCS: 96361; 85025; 36415; 80053; 70450; 96375; 96374; 99284; J2765; J7030

== ENCOUNTER 2020-04-05 04:52 | Emergency (ER) | payer OTHER ==
--- OUTSIDE RECORDS SUMMARY | 2020-04-05 04:55 | XMS REPORT ---
:1950 Author Organization [employer] Care Team Providers Name Role Phone Cheryle Zamudioh Provider Role Unavailable Allergies, Adverse Reactions, Alerts Substance Reaction Event Type N.K.D.A. 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 Problem Screening for colon cancer Z12.11 A ctive Problem Type 2 diabetes mellitus with E11.65 Active hyperglycemia, without long-term current use of insulin Problem Primary osteoarthritis involving M89.49 Active multiple joints Assessment Encounter for screening mammogram Z12.31 Active for malignant neoplasm of breast Problem History of diabetes mellitus Z86.39 Active Problem Essential hypertension I10 Activ e Assessment Medicare annual wellness visit, Z00.00 Active subsequent Problem Acquired hypothyroidism E03.9 Acti ve Problem Gastroesophageal reflux disease K21.9 Active without esophagitis Medications Medication Code Code Instructions Start End Status Dosage System Date Date Lisinopril ND 61973798080 10 MG Orally Sep 28, Active 1 ta blet Once a day 2018 Restasis [place] 95410290378 0.05 % January 09, Active 1 drop into Ophthalmic 2020 affected eye Twice a day as needed Prilosec OTC NDC 08563873718 20 MG Orally Sep 28, Active 1 tablet Once a day 2018 Levothyroxine ND 70164707001 100 MCG Orally Active 1 tablet on Sodium Once a day an empty stomach in the morning Metformin HCl NDC 00183405612 500 MG Orally Active 1 tablet with bid a meal Nystatin ND 71110452967 171140 UNIT/GM Mar 20, Active 1 ap plication Externally 2019 to affected Twice a day area Results No Known Results Summary Purpose [employer] Submission
--- OUTSIDE RECORDS SUMMARY | 2020-04-05 04:55 | XMS REPORT ---
:1950 Author Organization [employer] Care Team Providers Name Role Phone Mike Zamudio Provider Role Unavailable Allergies No Known Allergies Problems Problem Type Condition Code Onset Dates Condition Statu s Problem Gastroesophageal reflux disease K21.9 Active without esophagitis Problem BMI 32.0-32.9,adult Z68.32 Active Problem Primary osteoarthritis, unspecified M19.91 Active site Problem Body mass index (BMI) 32.0-32.9, Z68.32 Active adult Problem Type 2 diabetes mellitus with E11.65 Active hyperglycemia, without long-term current use of insulin Problem Other obesity due to excess E66.09 Active calories Problem Screening for colon cancer Z12.11 A ctive Problem Encounter for gynecological Z01.419 Active examination without abnormal finding Problem Primary osteoarthritis involving M89.49 Active multiple joints Problem Diabetes 1.5, 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
--- OUTSIDE RECORDS SUMMARY | 2020-04-05 04:55 | XMS REPORT ---
:1950 Author Organization [employer] Care Team Providers Name Role Phone Robb Mike Provider Role Unavailable Allergies, Adverse Reactions, Alerts Substance Reaction Event Type N.K.D.A. Info Not Available Non Drug Allergy Problems Problem Type Condition Code Onset Dates Condition Statu s Problem Primary osteoarthritis, unspecified M19.91 Active site Problem Encounter for gynecological Z01.419 Active examination without abnormal finding Problem BMI 32.0-32.9,adult Z68.32 Active Problem Other obesity due to excess E66.09 Active calories Assessment Other obesity due to excess E66.09 Active calories Problem Body mass index (BMI) 32.0-32.9, Z68.32 Active adult Assessment Body mass index (BMI) 32.0-32.9, Z68.32 Active adult Assessment Mixed hyperlipidemia E78.2 Active Problem Mixed hyperlipidemia E78.2 Active Problem Diabetes 1.5, 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 Problem Screening for colon cancer Z12.11 A ctive Problem Type 2 diabetes mellitus with E11.65 Active hyperglycemia, without long-term current use of insulin Problem Primary osteoarthritis involving M89.49 Active multiple joints Assessment Gastroesophageal reflux disease K21.9 Active without esophagitis Assessment Acquired hypothyroidism E03.9 Acti ve Assessment Primary osteoarthritis involving M89.49 Active multiple joints Assessment Essential hypertension I10 Activ e Problem History of diabetes mellitus Z86.39 Active Problem Essential hypertension I10 Activ e Assessment Type 2 diabetes mellitus with E11.65 Active hyperglycemia, without long-term current use of insulin Problem Acquired hypothyroidism E03.9 Acti ve Problem Gastroesophageal reflux disease K21.9 Active without esophagitis Medications Medication Code Code Instructions Start End Status Dosage System Date Date Levothyroxine ND 89035019286 100 MCG Orally Active 1 tablet on Sodium Once a day an empty stomach in the morning Lisinopril ND 66974104295 10 MG Orally Active 1 ta blet Once a day Lipitor ND 51313411547 10 MG Orally January Active 1 table t Once a day 2019 Restasis [facility] 35179874182 0.05 % January 09, Active 1 drop into Ophthalmic 2020 affected eye Twice a day as needed Metformin HCl ND 75767947593 500 MG Orally Active 1 tablet with bid a meal Nystatin [facility] 44584473268 995437 UNIT/GM Mar 20, Active 1 ap plication Externally 2018 to affected Twice a day area Prilosec OTC ND 14804975826 20 MG Orally Active 1 tablet Once a day Xigduo XR [facility] 03762046283 5-1000 MG January Active 1 tablet Orally Once a 17, 15, day 2019 2019 Results No Known Results Summary Purpose eClinicalWorks Submission
--- OUTSIDE RECORDS SUMMARY | 2020-04-05 04:55 | XMS REPORT | Continuity of Care Document ---
:1950 Author Organization [facility] t Address [address] [place] [address] Care Team Providers Name Role Phone Lab, Jesus Hickmanb I Attending Clinician Unavailable Problems Condition Condition Condition Status Onset Resolution Last Treating Co mments Source Name Details Category Date Date Treatment Clinician Date History of History of Problem Active [facility] diabetes diabetes [facility] - mellitus mellitus [facility] Acquired Acquired Problem [facility] hyp[facility]roi hypothyroi Cira k[facility] - dism dism [facility] l [facility] Gastroesop Gastroesop Problem Active [facility] hageal hageal [facility] - reflux reflux Memoria disease disease l without without Outpati esophagiti esophagiti en t s s Clinics Essential Essential Problem Active [facility] hypertensi hypertensi Cira kes - on on [facility]oria l [facility] Primary Primary Problem Active [facility] osteoarthr osteoarthr Cira kes - itis, itis, Memoria unspecifie unspecifie l d site d site [facility] Encounter Encounter Problem Active [facility] for for [facility] - gynecologi gynecologi Me moria tito tito l examinatio examinatio Ou tpati n without n without ent abnormal abnormal Clinic s finding finding Body mass Body mass Problem Active [facility] index index [facility] - (BMI) (BMI) Memoria 32.0-32.9, 32.0-32.9, l adult adult [facility] Screening Screening Problem Active [facility] for colon for colon [facility] - cancer cancer Memoria l [facility] Diabetes Diabetes Problem Active [facility] 1.5, 1.5, [facility] - managed as managed as Me moria type 2 type 2 l Outpati ent Clinics Type 2 Type [address] [facility] diabetes diabetes [facility] - mellitus mellitus Memori a with with l hyperglyce hyperglyce Ou tpati mignon, mignon, ent without without Clinics long-term long-term current current use of use of insulin insulin Other Other Problem Active [facility] obesity obesity [facility] - due to due to Memoria excess excess l calories calories Outpat i ent Clinics Primary Primary Problem Active [facility] osteoarthr osteoarthr Cira kes - itis itis Memoria involving involving l multiple multiple Outpat i joints joints ent Clinics Mixed Mixed Problem Active [facility] hyperlipid hyperlipid Cira kes - emia emia Memoria l Outpati ent Clinics Dysuria Dysuria Diagnosis [facility] Acute Acute Diagnosis Active [facility] pyelonephr pyelonephr Cira kes - itis itis Memoria l Outpati ent Clinics Allergies, Adverse Reactions, Alerts This patient has no known allergies or adverse reactions. Medications Ordered Filled Start Stop Current Ordering Indication Dosage Frequency Signature Comments Components Source Medication Medication Date Date Medication? Clinician (SIG) Name Name Cher Kwon 2020- Yes Mike [address] [facility] 8-20 08-30 Zamudio [facility] - 00:00: 00:00 Memoria 00 :00 l Outpati ent Clinics Ondansetron Ondansetron Yes Mike [address] [facility] HCl HCl 7-24 Zamudio [facility] - 00:[facility]: Memoria 00 l Outpati ent Clinics Jardiance Jardiance Yes Mike [address] [facility] 7-24 Zamudio [facility] - 00:00: Memoria 00 l Outpati ent Clinics MetFORMIN MetFORMIN Yes Mike [address] [facility] HCl ER HCl ER 7-14 Zamudoi with meal [facility] - 00:00: Memoria 00 l Outpati ent Clinics Tradjenta Tradjenta 0 Yes Mike [address] [facility] 7-14 Zamudio [facility] - 00:00: Memoria 00 l Outpati ent Clinics Restasis Restasis Yes Mike [address] 5-28 Zamudio into [facility] - 00:00: affected Memoria 00 eye as l needed Outpati ent Clinics Nystatin Nystatin Yes Mike [address] [facility] 8-06 Zamudio applicatio [facility] - 00:00: n to Memoria 00 affected l area Outpati ent Clinics Lipitor Lipitor Yes Mike [address] [facility] Zamudio [facility] l Outpati ent Clinics Lisinopril Lisinopril Yes Mike [address] [facility] [address] Zamudio kes - [facility] l Outpati ent Clinics Prilosec Prilosec Yes Mike [address] O[address] [facility] [facility] - [facility] l Outpati ent Clinics Levothyroxi Levothyroxi Yes Mike [address] [facility] ne Sodium ne Sodium Zamudio on an Melissa es - empty [facility] stomach in l the Outpati morning ent Clinics Procedures This patient has no known procedures. Encounters Start End Encounter Admission Attending Care Care Encounter Source Date/Time Date/Time Type Type Clinicians Facility Department ID 2020-04-03 2020-04-03 Laboratory Lab, [facility] [id number] 15:59:39 16:19:39 Only [facility] [id number] [place] [id number] Professio [id number] nal 0[address] 2020-04-03 2020-04-03 [facility] [id number] [facility] 11:15:00 11:15:00 t [facility] Medicine Outpati ent Clinics 2020-03-07 2020-03-07 [facility] [id number] [address] 08:15:00 08:15:00 t [facility] Medicine Outpati ent Clinics 2020-02-27 2020-02-27 [facility] [id number] [address] 11:04:00 11:04:00 t [facility] Medicine Outpati ent Clinics 2020-02-25 2020-02-25 [facility] [id number] 10:39:00 10:39:00 t [facility] Medicine Outpati ent Clinics 2020-01-30 2020-01-30 [facility] [id number] [address] 15:45:00 15:45:00 t [facility] Medicine Outpati ent Clinics 2020-01-30 2020-01-30 [facility] [id number] [address] 15:45:00 15:45:[address] [place] [address] Luke s - Drive [facility] Medicine l Medicine Outpati ent Clinics 2020-01-09 2020-01-09 [facility] [id number] 11:17:00 11:17:[address] [place] [address] Luke s - Drive [facility] Medicine l Medicine Outpati ent Clinics 2019-11-27 2019-11-27 [facility] [id number] 14:00:00 14:00:00 [place] [employer] Luke s - Drive [facility] Medicine l Medicine Outpati ent Clinics 2019-05-22 2019-05-22 [facility] [id number] 16:00:00 16:00:00 t [facility] Medicine l Medicine Outpati ent Clinics 2019-05-08 2019-05-08 [facility] [id number] 16[facility]15:00 16:15:[address] t [facility] [address] [facility] Medicine l Medicine Outpati ent Clinics 2019-03-20 2019-03-20 [facility] [id number] 08:20:00 08:20:00 t [facility] Medicine Medicine Outpati ent Clinics 2019-02-13 2019-02-13 [facility] [id number] 16:15:00 16:15:[address] t [facility] [address] [facility] Medicine Medicine Outpati ent Clinics 2018-11-24 2018-11-24 [facility] [id number] 16:23:00 16:23:00 t [facility] [address] [facility] Medicine Medicine Outpati ent Clinics 2018-11-13 2018-11-13 [facility] [id number] 16:30:00 16:30:[address] t [facility] [address] [facility] l Medicine Outpati ent Clinics 2018-09-28 2018-09-28 [facility] [id number] 15:00:00 15:00:00 t [facility] Medicine Medicine Outpati ent Clinics Results This patient has no known results.
--- OUTSIDE RECORDS SUMMARY | 2020-04-05 04:55 | XMS REPORT ---
[...] insulin Problem Acquired hypothyroidism E03.9 Acti ve Assessment Nausea alone R11.0 Active Problem Gastroesophageal reflux disease K21.9 Active without esophagitis Medications Medication Code Code Instructions Start End Status Dosage System Date Date Nystatin [facility] 13015220729 912181 UNIT/GM Mar 20, Active 1 ap plication Externally 2019 to affected Twice a day area Ondansetron HCl ND 76756057657 4 MG Orally February Active 1 tablet BID PRN Nausea 2019 Lipitor ND 21991300858 10 MG Orally Active 1 table t Once a day Xigduo XR ND 71995295634 5-1000 MG February Inactive 1 table t Orally Once a 24, day 2019 Ondansetron HCl ND 96153763145 4 MG Orally February Inactive 1 tablet Once a dayBID , prn nausea 2019 Restasis ND 16208551963 0.05 % January 09, Active 1 drop into Ophthalmic 2019 affected eye Twice a day as needed Lisinopril ND 88609567159 10 MG Orally Active 1 ta blet Once a day Tradjenta ND 66687421270 5 MG Orally February Active 1 tabl et Once a day 2019 MetFORMIN HCl ER ND 20976139590 500 MG Orally February Activ e 2 tablets twice a day , with meal 2019 Prilosec OTC [facility] 43116520187 20 MG Orally Active 1 tablet Once a day Jardiance ND 85368045339 10 MG Orally February Active 1 tab let Once a day 2019 Levothyroxine ND 16016502790 100 MCG Orally Active 1 tablet on Sodium Once a day an empty stomach in the morning Results Name Result Date Reference Range Unit Abnormali ty Flag HEMOGLOBIN A1C ----A1C 9.3 [id number] Summary Purpose eClinicalWorks Submission
--- OUTSIDE RECORDS SUMMARY | 2020-04-05 04:55 | XMS REPORT ---
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
--- OUTSIDE RECORDS SUMMARY | 2020-04-05 04:56 | XMS REPORT ---
:1950 Author Organization eClinicalWorks Care Team Providers Name Role Phone Robb Mike Provider Role Unavailable Allergies No Known Allergies Problems Problem Type Condition Code Onset Dates Condition Statu s Problem Primary osteoarthritis, unspecified M19.91 Active site Problem Encounter for gynecological Z01.419 Active examination without abnormal finding Problem BMI 32.0-32.9,adult Z68.32 Active Problem History of diabetes mellitus Z86.39 Active Problem Essential hypertension I10 Activ e Problem Acquired hypothyroidism E03.9 Acti ve Problem Gastroesophageal reflux disease K21.9 Active without esophagitis Problem Other obesity due to excess E66.09 Active calories Problem Body mass index (BMI) 32.0-32.9, Z68.32 Active adult Problem Mixed hyperlipidemia E78.2 Active Problem Diabetes 1.5, 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
--- OUTSIDE RECORDS SUMMARY | 2020-04-05 04:56 | XMS REPORT | Summary of Care ---
:1950 Author Organization [facility] Address [address] [place] [address] Care Team Providers Name Role Phone Breann Alejandre MD Primary Care Provider Reason for Visit Reason Comments Exposure LAB Encounter Details Date Type Department Care Team Description 04/03/2020 Laboratory Only [facility] Family KarenDavid, [employer] [address] [place] [id number] Suspected Covid-19 Medicine - [facility], [facility] Fam Pob I Virus Infection [address] [place] [address] (Primary D x) [place] [address] Allergies No Known Allergiesdocumented as of this encounter (statuses as of 04/03/2020) Medications Medication Sig Dispensed Refills Start Date End Date Status atorvastatin 20 mg Take 1 tablet by 90 tablet 3 08/31/2016 Active tabletIndications: mouth at bedtime. Dyslipidemia Diclofenac Sodium Take 2-4 grams 100 g 3 03/30/2018 Active (VOLTAREN) 1 % three times a day gelIndications: Muscle as needed for spasm pain levothyroxine 100 mcg Take 1 tablet by 30 tablet 5 03/30/2018 Active tabletIndications: mouth every Postsurgical morning. hypothyroidism lisinopril 10 mg Take 1 tablet by 30 tablet 5 03/30/2018 Active tabletIndications: mouth daily. Essential hypertension omeprazole 20 mg Take 2 tablets by 30 tablet 0 09/27/2018 Active tabletIndications: mouth daily. Nausea ondansetron (ZOFRAN Take 1 tablet by 10 tablet 0 09/27/2018 Active ODT) 4 mg mouth every 8 disintegrating (eight) hours as tabletIndications: needed for Nausea Nausea and Vomiting (N/V). 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 documented as of this encounter Last Filed Vital Signs Not on filedocumented in this encounter Nursing Notes Jese Valderrama MA - 04/03/2020 4:00 PM CDTMaria Silvia Hinojosa is a 70 year old female here for COVID Screening with a Nasopharyngeal Swab All droplet and contact precautions taken with appropriate PPE worn while interacting with patient. ? Goggles ? N95 Mask ? Gloves ? Gown RR 18 Pulse Ox 98% Patient educated on plan of care for visit, swabbing technique, risks and benefits of test and length of time to receive results. Verbal consent obtained to perform test. CDC Fact Sheet for Patients nCoV Diagnostic Panel dated 10/28/2019 and Factsheet What to Do if Sick with COVID 19 10/08/19 provided. Patient swabbed per appropriate nasopharyngeal technique, and patient tolerated well. Patient was discharged from the testing clinic in stable condition. Both nostrils swabbed. JESE VALDERRAMA MA 04/03/2020 4:05 PM documented in this encounter Plan of Treatment Name Type Priority Associated Diagnoses Order S chedule COVID-19 (PCR MOLECULAR LAB Routine Suspected Covid-1 9 Virus Expected: 04/03/2020, TESTING) Infection Expires: 2020 Health Maintenance Due Date Last Done Comments Depression Screening 1962 DTaP,Tdap,and Td Vaccines (1 - Tdap) 1970 COLON CANCER SCREENING ANNUAL 2001 FIT/FOBT COLON CANCER SCREENING FIT DNA EVERY 2001 3 YEARS COLON CANCER SCREENING SIGMOIDOSCOPY 2001 EVERY 5 YEARS COLONOSCOPY 2001 Colorectal Cancer Screening 2001 Zoster Recombinant Vaccine (SHINGRIX) 2001 (1 of 2) Medicare Wellness Visit 2016 PNEUMOCOCCAL VACCINES 65+ (1 of 1 - 2016 PPSV23) Breast Cancer Screening (MAMMOGRAM) 03/22/2019 03/22/2018 ( Previously completed), 07/21/2016, 07/16/2015 INFLUENZA VACCINE (#1) 2020 07/20/2016 Osteoporosis Screening 07/16/2025 07/16/2015, 07/16/2015 HEPATITIS C (HCV) SCREEN Completed 03/30/2018 documented as of this encounter Results Not on filedocumented in this encounter Visit Diagnoses Diagnosis Suspected Covid-19 Virus Infection - [place] bossman documented in this encounter Additional Health Concerns Infection Onset Date Last Indicated Resolved Time COVID-19 Rule Out 04/03/2020 04/03/2020 documented as of this encounter Insurance Payer Benefit Plan / Subscriber ID Effective Dates Phone Addre ss Type Group [employer] [id number] 2018-Present Medicare Adv spring HMO documented as of this encounter
--- OUTSIDE RECORDS SUMMARY | 2020-04-05 04:56 | XMS REPORT ---
[...] osteoarthritis involving M89.49 Active multiple joints Assessment Dysuria R30.0 Active Problem History of diabetes mellitus Z86.39 Active Problem Essential hypertension I10 Activ e Assessment Acute pyelonephritis N10 Active Problem Acquired hypothyroidism E03.9 Acti ve Problem Gastroesophageal reflux disease K21.9 Active without esophagitis Medications Medication Code Code Instructions Start End Status Dosage System Date Date Lipitor ND 16547609042 10 MG Orally Active 1 table t Once a day Restasis ND 91292160612 0.05 % January 09, Active 1 drop into Ophthalmic 2019 affected eye Twice a day as needed Tradjenta ND 98889236293 5 MG Orally February Active 1 tabl et Once a day 2019 MetFORMIN HCl ER ND 40926505027 500 MG Orally February Activ e 2 tablets twice a day , with meal 2019 Lisinopril ND 03300434907 10 MG Orally Active 1 ta blet Once a day Prilosec OTC ND 69138553351 20 MG Orally Active 1 tablet Once a day Jardiance ND 84596801473 10 MG Orally February Active 1 tab let Once a day 2019 Ondansetron HCl [facility] 45065066478 4 MG Orally BID February Acti ve 1 tablet PRN Nausea 2019 Nystatin [facility] 94416185864 133126 UNIT/GM Mar 20 Active 1 ap plication Externally 2019 to affected Twice a day area Cipro [facility] 40966673570 500 MG Orally Apr 03Mar Active 1 tabl et every 12 hrs 2019 Levothyroxine [facility] 03685995382 100 MCG Orally Active 1 tablet on Sodium Once a day an empty stomach in the morning Results No Known Results Summary Purpose eClinicalWorks Submission
[2020-04-05] MEDS ORDERED: ONDANSETRON 4 MG/2 ML VIAL ONE (05:47)
[2020-04-05] MEDS ORDERED: NA CHLORIDE 0.9% 1,000 ML ONE (05:47)
[2020-04-05] MEDS ORDERED: MORPHINE 2 MG/ML SYR ONE (05:47)
[2020-04-05 06:26] LABS: Absolute Lymphocytes (CBC) 1.8 K/uL (0.7-4.9)
[2020-04-05 06:36] LABS: Urine Blood TRACE (NEG); Urine Glucose NEGATIVE (NEG); Urine Protein TRACE (NEG)
[2020-04-05 06:46] LABS: Basophils % 0.6 % (0-1.3); Hematocrit 37.6 % (36.0-45.0); Lymphocytes % 21.2 % (15.3-44.8); MPV 8.6 fL (7.6-11.3); RBC Red Blood Cell Count 3.95 M/uL (3.86-4.86)
[2020-04-05 06:52] LABS: ALT/SGPT 22 U/L (12-78); AST/SGOT 17 U/L (15-37); Albumin 3.1 g/dL (3.4-5.0); Alkaline Phosphatase 85 U/L (45-117); BUN Blood Urea Nitrogen 14 mg/dL (7-18); Bicarbonate 26 mmol/L (21-32); Bilirubin Direct 0.2 mg/dL (0-0.2); Bilirubin Total 0.4 mg/dL (0.2-1.0); Glucose Level 151 mg/dL (74-106); Lipase 114 U/L (73-393); Potassium 3.8 mmol/L (3.5-5.1); Protein, Total 7.1 g/dL (6.4-8.2); Sodium Level 143 mmol/L (136-145)
[2020-04-05 06:55] LABS: Urine Bacteria <20 /HPF (<20); Urine Culture Reflex Order NOT NEEDED; Urine RBC <5 /HPF (NONE SEEN)
--- NOTE | 2020-04-05 07:14 | EDPHYS ---
Physician Documentation [facility] Name: Katya Hinojosa Age: 70 yrs Sex: Female : 1950 Arrival Date: 04/05/2020 Time: 04:56 Bed 4 Private MD: Mike Zamudio ED Physician Tomi Catalan HPI: 04/05 06:07 This 70 yrs old Female presents to ER via Ambulatory with complaints of mh7 Headache, Back Pain, Abdominal Pain. 06:08 The patient complains of pain in the left flank. Location: left lower quadrant. Onset: mh7 The symptoms/episode began/occurred 1 week(s) ago. Modifying factors: The symptoms are alleviated by remaining still, the symptoms are aggravated by movement, palpation/percussion. Associated signs and symptoms: Pertinent positives: headache, Pertinent negatives: diarrhea, dizziness, dysuria, fever, urinary frequency, hematuria, nausea, pain radiating to the lower extremities, vomiting. Severity of pain: At its worst the pain was moderate yesterday, in the emergency department the pain has improved moderately. The patient has been recently seen by a physician: the patient's primary care provider, started on Cipro. Patient reports left flank area pain that radiates to left lower abdomen for 1 week. States the pain has caused a flare up of her migraine headaches. Denies any fever, neck pain, chest pain, nausea, vomiting, diarrhea, dysuria, numbness/tingling, or weakness.. Historical: - Allergies: 05:23 No Known Allergies; bb - Home Meds: 05:23 levothyroxine 100 mcg tab 1 tab once daily [Active]; lisinopril 10 mg Oral tab 1 tab bb once daily [Active]; Metformin Oral [Active]; Ciprofloxacin Opht [Active]; - PMHx: 05:23 Diabetes - NIDDM; High Cholesterol; Hypertension; Hypothyroidism; bb - PSHx: 05:23 Thyroidectomy; bb - Immunization history:: Adult Immunizations unknown. - Social history:: Smoking status: unknown. ROS: 06:08 Constitutional: Negative for fever, chills, and weight loss, Eyes: Negative for injury, mh7 pain, redness, and discharge, ENT: Negative for injury, pain, and discharge, Neck: Negative for injury, pain, and swelling, Cardiovascular: Negative for chest pain, palpitations, and edema, Respiratory: Negative for shortness of breath, cough, wheezing, and pleuritic chest pain, : Negative for injury, bleeding, discharge, and swelling, MS/Extremity: Negative for injury and deformity, Skin: Negative for injury, rash, and discoloration, Psych: Negative for depression, anxiety, suicide ideation, homicidal ideation, and hallucinations, Allergy/Immunology: Negative for hives, rash, and allergies, Endocrine: Negative for neck swelling, polydipsia, polyuria, polyphagia, and marked weight changes, Hematologic/Lymphatic: Negative for swollen nodes, abnormal bleeding, and unusual bruising. Exam: 06:08 Constitutional: This is a well developed, well nourished patient who is awake, alert, mh7 and in no acute distress. Head/Face: Normocephalic, atraumatic. Eyes: Pupils equal round and reactive to light, extra-ocular motions intact. Lids and lashes normal. Conjunctiva and sclera are non-icteric and not injected. Cornea within normal limits. Periorbital areas with no swelling, redness, or edema. Neck: Trachea midline, no thyromegaly or masses palpated, and no cervical lymphadenopathy. Supple, full range of motion without nuchal rigidity, or vertebral point tenderness. No Meningismus. Chest/axilla: Normal chest wall appearance and motion. Nontender with no deformity. No lesions are appreciated. Cardiovascular: Regular rate and rhythm with a normal S1 and S2. No gallops, murmurs, or rubs. Normal PMI, no JVD. No pulse deficits. Respiratory: Lungs have equal breath sounds bilaterally, clear to auscultation and percussion. No rales, rhonchi or wheezes noted. No increased work of breathing, no retractions or nasal flaring. 06:08 Skin: Warm, dry with normal turgor. Normal color with no rashes, no lesions, and no evidence of cellulitis. MS/ Extremity: Pulses equal, no cyanosis. Neurovascular intact. Full, normal range of motion. Neuro: Awake and alert, GCS 15, oriented to person, place, time, and situation. Cranial nerves II-XII grossly intact. Motor strength 5/5 in all extremities. Sensory grossly intact. Cerebellar exam normal. Normal gait. Psych: Awake, alert, with orientation to person, place and time. Behavior, mood, and affect are within normal limits. 06:08 Abdomen/GI: Inspection: abdomen appears normal, Bowel sounds: normal, in all quadrants, Palpation: moderate abdominal tenderness, in the suprapubic area and left lower quadrant, Rectal exam: the exam is deferred, because of patient request, Indicators: McBurney's point is not tender, Montana's sign is negative, Rovsing's sign is negative, Obturator sign is negative, Psoas sign is negative, Liver: no appreciated palpable abnormalities, Hernia: not appreciated. 06:08 Back: pain, is absent, ROM is normal, normal spinal alignment noted, CVA tenderness, that is mild, is noted on the left, vertebral tenderness, is not appreciated, muscle spasm, is not present. Vital Signs: 05:15 BP 137 / 64; Pulse 88; Resp 16 S; Temp 99(O); Pulse Ox 100% on R/A; Weight 85.73 kg; bb Height 5 ft. 5 in. (165.10 cm) (R); Pain 9/10; 06:11 BP 150 / 49; Pulse 80; Resp 18; Pulse Ox 99% on R/A; ea 06:46 BP 126 / 63; Pulse 70; Resp 18; Pulse Ox 99% on R/A; ea 05:15 Body Mass Index 31.45 (85.73 kg, 165.10 cm) bb MDM: 05:33 Patient medically screened. [facility] 07:10 Differential diagnosis: nephrolithiasis, pyelonephritis, UTI, diverticulitis. Data [facility] reviewed: vital signs, nurses notes, old medical records, lab test result(s), CBC, electrolytes, urinalysis, radiologic studies, CT scan. Data interpreted: Pulse oximetry: on room air is 99 %. Interpretation: normal. Counseling: I had a detailed discussion with the patient and/or guardian regarding: the historical points, exam findings, and any diagnostic results supporting the discharge/admit diagnosis, lab results, radiology results, the need for outpatient follow up, to return to the emergency department if symptoms worsen or persist or if there are any questions or concerns that arise at home. Response to treatment: the patient's symptoms have resolved after treatment, the patient's blood pressure is in an acceptable range, mental status has returned to baseline, the patient no longer shows bradycardia, the patient is not short of breath, the patient is not tachycardic, the patient's pain is gone, the patient's temperature has normalized. 04/05 05:35 Order name: Basic Metabolic Panel [facility] 04/05 05:35 Order name: CBC with Diff; Complete Time: 06:52 [facility] 04/05 05:35 Order name: Hepatic Function [facility] 04/05 05:35 Order name: Lipase [facility] 04/05 06:22 Order name: Urine Microscopic Only 04/05 06:23 Order name: Urine Dipstick--Ancillary (enter results) 04/05 05:24 Order name: Urine Dipstick-Ancillary (obtain specimen); Complete Time: 06:20 04/05 05:35 Order name: IV Saline Lock; Complete Time: 06:19 [facility] 04/05 05:35 Order name: Labs collected and sent; Complete Time: 06:19 [facility] 04/05 05:35 Order name: CT Abd/Pelvis - Without Contrast [facility] 04/05 06:24 Order name: Urine Dipstick-Ancillary; Complete Time: 06:37 EDMS Administered Medications: 06:08 Drug: Zofran (Ondansetron) 4 mg Route: IVP; Site: left antecubital; ea 06:45 Follow up: Response: No adverse reaction ea 06:08 Drug: NS 0.9% 1000 ml Route: IV; Rate: 1000 ml; Site: left antecubital; ea 06:19 Drug: morphine 2 mg Route: IVP; Site: left antecubital; ea 06:46 Follow up: Response: No adverse reaction; Pain is decreased ea Disposition: 04/05/20 07:13 Discharged to Home. Impression: Nephrolithiasis, UTI. - Condition is Stable. - Discharge Instructions: Urinary Tract Infection, Adult, Kidney Stones, [id number]. - Prescriptions for Colace 100 mg Oral Capsule - take 1 tablet by ORAL route every 12 hours; 20 tablet. Tylenol- Codeine #3 300-30 mg Oral Tablet - take 2 tablet by ORAL route every 6 hours As needed; 20 tablet. Zofran ODT 4 mg Oral tablet,disintegrating - place 1 tablet by TRANSLINGUAL route every 8 hours As needed; 10 tablet. - Medication Reconciliation Form, Thank You Letter, Antibiotic Education, Prescription Opioid Use form. - Follow up: Private Physician; When: 1 - 2 days; Reason: Worsening of condition, Recheck today's complaints, Continuance of care, Re-evaluation by your physician. Follow up: Jayne Vaughn MD; When: 1 - 2 days; Reason: Worsening of condition, Recheck today's complaints. - Problem is new. - Symptoms have improved. Signatures: Dispatcher [employer] EDMS Sruthi Grullon RN RN Carmela Evans, RN RN Jeannette Olmos RN RN ea Holmes, Maurice, MD MD mh7 Corrections: (The following items were deleted from the chart) 07:43 07:13 04/05/2020 07:13 Discharged to Home. Impression: Nephrolithiasis; UTI. Condition rb1 is Stable. Forms are Medication Reconciliation Form, Thank You Letter, Antibiotic Education, Prescription Opioid Use. Follow up: Private Physician; When: 1 - 2 days; Reason: Worsening of condition, Recheck today's complaints, Continuance of care, Re-evaluation by your physician. Follow up: Jayne Vaughn; When: 1 - 2 days; Reason: Worsening of condition, Recheck today's complaints. Problem is new. Symptoms have improved. mh7
--- NOTE | 2020-04-05 07:14 | ER ---
Nurse's Notes [facility] Name: Katya Hinojosa Age: 70 yrs Sex: Female : 1950 Arrival Date: 04/05/2020 Time: 04:56 Bed 4 Private MD: Mike Zamudio Diagnosis: Nephrolithiasis;UTI Presentation: 04/05 05:15 Chief complaint: Patient states: she is having a headache with high blood pressure she bb can't sleep she also is on antibiotics for a UTI and got a shot 3 days ago but is having abdominal pain with nausea and suprapubic pain denies vomiting or diarrhea. Coronavirus screen: At this time, the client does not indicate any symptoms associated with coronavirus-19. Ebola Screen: No symptoms or risks identified at this time. Initial Sepsis Screen: Does the patient meet any 2 criteria? No. Patient's initial sepsis screen is negative. Does the patient have a suspected source of infection? No. Patient's initial sepsis screen is negative. Risk Assessment: Do you want to hurt yourself or someone else? Patient reports no desire to harm self or others. Onset of symptoms was April 05, 2020. 05:15 Method Of Arrival: Ambulatory bb 05:15 Acuity: AMAYA 3 bb Triage Assessment: 05:33 Headache History: The patient has had previous headaches and this one is similar to ea previous episodes. General: Appears uncomfortable, Behavior is appropriate for age. Pain: Complains of pain in forehead, right samaritan, left samaritan, posterior aspect of right lateral abdomen and left lower quadrant. Pain: Pain currently is 6 out of 10 on a pain scale. Also complains of no other associated symptoms. Neuro: Level of Consciousness is awake, alert, obeys commands, Oriented to person, place, time, situation. Historical: - Allergies: 05:23 No Known Allergies; bb - Home Meds: 05:23 levothyroxine 100 mcg tab 1 tab once daily [Active]; lisinopril 10 mg Oral tab 1 tab bb once daily [Active]; Metformin Oral [Active]; Ciprofloxacin Opht [Active]; - PMHx: 05:23 Diabetes - NIDDM; High Cholesterol; Hypertension; Hypothyroidism; bb - PSHx: 05:23 Thyroidectomy; bb - Immunization history:: Adult Immunizations unknown. - Social history:: Smoking status: unknown. Screenin:33 Abuse screen: Denies threats or abuse. Nutritional screening: No deficits noted. ea Tuberculosis screening: No symptoms or risk factors identified. Fall Risk None identified. Assessment: 05:30 General: Appears uncomfortable, Behavior is appropriate for age. Pain: Complains of ea pain in left lower quadrant and posterior aspect of right lateral abdomen. Neuro: Level of Consciousness is awake, alert, obeys commands, Oriented to person, place, time, situation. Cardiovascular: Patient's skin is warm and dry. Respiratory: Airway is patent Respiratory effort is even, unlabored, Respiratory pattern is regular, symmetrical. Derm: Skin is pink, warm \T\ dry. 06:45 Reassessment: Patient and/or family updated on plan of care and expected duration. Pain ea level reassessed. Patient is alert, oriented x 3, equal unlabored respirations, skin warm/dry/pink. 07:00 Reassessment: RECD REPORT FROM JEANNETTE SAPP. 70YO HF P/W ULRICH AND ABD PAIN. ALL CURRENT bp ORDERS COMPLETED. Vital Signs: 05:15 BP 137 / 64; Pulse 88; Resp 16 S; Temp 99(O); Pulse Ox 100% on R/A; Weight 85.73 kg; bb Height 5 ft. 5 in. (165.10 cm) (R); Pain 9/10; 06:11 BP 150 / 49; Pulse 80; Resp 18; Pulse Ox 99% on R/A; ea 06:46 BP 126 / 63; Pulse 70; Resp 18; Pulse Ox 99% on R/A; ea 05:15 Body Mass Index 31.45 (85.73 kg, 165.10 cm) bb ED Course: 04:56 Patient arrived in ED. es 04:56 Mike Zamudio DO is Private Physician. es 05:12 Tomi Catalan MD is Attending Physician. [facility] 05:21 Triage completed. bb 05:23 Arm band placed on Patient placed in an exam room, on a stretcher, on pulse oximetry. bb 05:24 Jeannette Carpio, SEKOU is Primary Nurse. ea 05:33 Patient has correct armband on for positive identification. Placed in gown. Bed in low ea position. Call light in reach. Side rails up X2. 05:59 CT Abd/Pelvis - Without Contrast In Process Unspecified. EDMS 06:10 Initial lab(s) drawn, by me, sent to lab. Urine collected: clean catch specimen, clear. bb Inserted saline lock: 20 gauge in left antecubital area, using aseptic technique. Blood collected. 07:12 Jayne Vaughn MD is Referral Physician. [facility] 07:42 No provider procedures requiring assistance completed. rb1 Administered Medications: 06:08 Drug: Zofran (Ondansetron) 4 mg Route: IVP; Site: left antecubital; ea 06:45 Follow up: Response: No adverse reaction ea 06:08 Drug: NS 0.9% 1000 ml Route: IV; Rate: 1000 ml; Site: left antecubital; ea 06:19 Drug: morphine 2 mg Route: IVP; Site: left antecubital; ea 06:46 Follow up: Response: No adverse reaction; Pain is decreased ea Outcome: 07:13 Discharge ordered by . 7 07:42 Discharged to home ambulatory. rb1 07:42 Condition: stable 07:42 Discharge instructions given to patient, Instructed on discharge instructions, follow up and referral plans. medication usage, Demonstrated understanding of instructions, follow-up care, medications, Prescriptions given X 3. 07:43 Patient left the ED. rb1 Signatures: Dispatcher [employer] EDME Shiela Floyd Brenda, RN RN bb Barber, Rebecca, RN RN rb1 Jeannette Carpio RN RN ea Peltier, Brian, RN RN bp Holmes, Maurice, MD MD [facility]
--- NOTE | 2020-04-05 13:49 | RAD REPORT ---
EXAM DESCRIPTION: CT - Abdomen Pelvis Wo Contrast - 04/05/2020 6:31 am CLINICAL HISTORY: The patient is 70 years old and is Female; FLANK PAIN TECHNIQUE: Axial computed tomography images of the abdomen and pelvis without intravenous contrast. Sagittal and coronal reformatted images were created and reviewed. This CT exam was performed usi ng one or more of the following dose reduction techniques: automated exposure control, adjustment o f the mA and/or kV according to patient size, and/or use of iterative reconstruction technique. COMPARISON: No relevant prior studies available. FINDINGS: LUNG BASES: Unremarkable. No mass. No consolidation. ABDOMEN: LIVER: The liver is enlarged and mildly fatty. GALLBLADDER AND BILE DUCTS: Multiple calcified gallstones are present within the gallbladder. Th ere is no ductal dilatation. PANCREAS: The pancreas is mildly atrophic. No ductal dilation. SPLEEN: Unremarkable. ADRENALS: Unremarkable. No mass. KIDNEYS AND URETERS: Bilateral exophytic renal cysts and parapelvic renal cysts are present, the largest measures 1.2 cm. Mild left hydronephrosis and proximal hydroureter is present. Minimal left perinephric and periureteral stranding is noted. Punctate right intrarenal calcification is present. No obstructing renal or ureteral calculus is seen. STOMACH AND BOWEL: The stomach is distended with food contents. The small bowel is normal in tito iber. Stool is present throughout colon. Scattered colonic diverticula are noted without surrounding inflammation. There is no bowel obstruction. PELVIS: APPENDIX: The appendix is normal in caliber without surrounding inflammation. BLADDER: The bladder is nearly empty. No stones. REPRODUCTIVE: Unremarkable as visualized. ABDOMEN and PELVIS: INTRAPERITONEAL SPACE: Unremarkable. No free air. No significant fluid collection. BONES/JOINTS: There are degenerative changes of the bones. SOFT TISSUES: The soft tissues are normal. VASCULATURE: Minimal atherosclerosis of the vasculature is present. No abdominal aortic aneury sm. LYMPH NODES: Unremarkable. No enlarged lymph nodes. IMPRESSION: 1. Mild left hydroureteronephrosis without obstructing calculus. Findings may be secon sarah to recently passed stone. 2. Right nephrolithiasis. 3. Cholelithiasis without CT evidence to suggest cholecystitis. Electronically signed by: Maya Samayoa MD 04/05/2020 6:21 AM CDT Due to temporary technical issues with the PACS/Fluency reporting system, reports are being signed by the in house radiologist without review as a courtesy to ensure prompt reporting. The interpreting r adiologist is fully responsible for the content of the report.
== END 2020-04-05 07:43 | disposition home or self-care (01) ==
LOC: ER 04:52
DX: N39.0 Urinary tract infection, site not specified (principal); N20.0 Calculus of kidney; E03.9 Hypothyroidism, unspecified; I10 Essential (primary) hypertension; E11.9 Type 2 diabetes mellitus without complications; E78.00 Pure hypercholesterolemia, unspecified
CPT/HCPCS: 85025; 80048; 36415; 80076; 83690; 74176; 96375; 96374; 99284; J2270; J7030; J2405; 81003; 81015

== ENCOUNTER 2020-07-31 04:53 | Emergency (ER) | payer OTHER ==
--- OUTSIDE RECORDS SUMMARY | 2020-07-31 04:55 | XMS REPORT ---
:1950 Author Organization [facility] Address [address] [place], [address] [place] [address] Care Team Providers Name Role Phone Zamudio Unavailable [phone] PROBLEMS Type Condition ICD9-CM [id number] Onset Condition SNOMED Code Notes Code Code Dates Status Problem Essential I10 Active 76838516 hypertension Problem History of diabetes Z86.39 Active 830340404 mellitus Problem Gastroesophageal K21.9 Active 249890477 reflux disease without esophagitis Problem Acquired E03.9 Active 556183955 hypothyroidism Problem Encounter for Z01.419 Active 086251664 gynecological examination without abnormal finding Problem Screening for colon Z12.11 Active 186174279 cancer Problem Diabetes 1.5, 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 Problem Mixed E78.2 Active 382485957 hyperlipidemia Problem BMI 32.0-32.9,adult Z68.32 Active 996337189 Problem Constipation, K59.00 Active 52028326 unspecified constipation type Problem Primary M19.91 Active 728240318 osteoarthritis, unspecified site Problem 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 665573213 osteoarthritis involving multiple joints Problem Type 2 diabetes E11.65 Active 21640854 mellitus with hyperglycemia, without long-term current use of insulin Problem Body mass index Z68.32 Active 620400884 (BMI) 32.0-32.9, adult Problem 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 429404916 to excess calories ALLERGIES No Known Allergies ENCOUNTERS from 1950 to 2020-06-02 Encounter Location Date Provider Diagnosis [facility] [place] [address] [place] [address] May, 2020 Mike Zamudio Allergic conjunct[address]itis [address] [place], [place] [address] [place] [address] IMMUNIZATIONS Vaccine Route Administration Date Status Rocephin (Ceftriaxone) IM Intramuscular Apr 03, 2020 Administ ered SOCIAL HISTORY Tobacco Use: Social History Observation Description Date Details (start date - stop date) Never Smoker Sex Assigned At : Social History Observation Description Sex Assigned At Unknown Alcohol Screen Question Answer Notes Did you have a drink containing alcohol in the past year? No Points 0 Interpretation Negative Tobacco Use/Smoking Question Answer Notes Are you a never smoker REASON FOR REFERRAL No Information VITAL SIGNS No information MEDICATIONS Medication SIG (Take, Route, Start Date End Date Status Frequency, Duration) Restasis 0.05 % 1 drop into affected eye December, Active as needed Ophthalmic Twice a day for 30 days Ondansetron HCl 4 MG 1 tablet Orally BID PRN Active Nausea Lisinopril 10 MG 1 tablet Orally Once a A ctive day for 90 days Levothyroxine Sodium 100 1 tablet on an empty Active MCG stomach in the morning Orally Once a day for 90 days GlipiZIDE ER 5 MG 1 tablet with food Orally May, Active Once a day for 90 days MetFORMIN HCl ER 500 MG 2 tablets with meal Active Orally twice a day for 90 days Lipitor 10 MG 1 tablet Orally Once a Acti ve day for 90 days Nystatin 793255 UNIT/GM 1 application to affected Mar, Not-Taking area Externally Twice a day Prilosec OTC 20 MG 1 tablet Orally Once a Active day PROCEDURES No Information RESULTS No Results REASON FOR VISIT Refer ophthalmology MEDICAL (GENERAL) HISTORY Type Description Date Surgical History thyroid 2006 Goals Section No Information Health Concerns No Information MEDICAL EQUIPMENT No Information MENTAL STATUS No Information FUNCTIONAL STATUS No Information ASSESSMENTS Encounter Date Diagnosis Notes May, Allergic conjunctivitis of both eyes (IC D-10 - H10.13) PLAN OF TREATMENT Medication Medication Name Sig Start Date Stop Date MetFORMIN HCl ER 500 MG 2 tablets with meal Orally twice a day for 90 days Lipitor 10 MG 1 tablet Orally Once a day for 90 days Lisinopril 10 MG 1 tablet Orally Once a day for 90 days Levothyroxine Sodium 100 MCG 1 tablet on an empty stomach in the morning Orally Once a day for 90 days GlipiZIDE ER 5 MG 1 tablet with food Orally Once a May, day for 90 days Prilosec OTC 20 MG 1 tablet Orally Once a day Ondansetron HCl 4 MG 1 tablet Orally BID PRN Nausea Next Appt Details Provider Name:Mike Zamudio, 2020-07-23 0 3:50:00 PM, [address], [address], [place], [address], Provider Name:Mike Zamudio, 2020-07-30 0 4:40:00 PM, [address], [address], [place], [address], Insurance Providers Payer Name Payer Payer Insured Patient Coverage Coverage End Address Phone Name Relationship to Start Date Robby e Insured [employer] [phone] Sara Hinojosa self prin [id number] [place] Replace [id number]
--- OUTSIDE RECORDS SUMMARY | 2020-07-31 04:55 | XMS REPORT | Continuity of Care Document ---
:1950 Author Organization [facility] t Address [address] [place] [address] Care Team Providers Name Role Phone Lab, Fam Pob I Attending Clinician Unavailable Problems This patient has no known problems. Allergies, Adverse Reactions, Alerts This patient has no known allergies or adverse reactions. Medications Ordered Filled Start Stop Current Ordering Indication Dosage Frequency Signature Comments Components Source Medication Medication Date Date Medication? Clinician (SIG) Name Name Ondansetron Ondansetron Yes Mike [address] [facility] HCl HCl 7-24 [facility] Jardiance Jardiance Yes Mike [address] [facility] 7-24 [facility] MetFORMIN MetFORMIN Yes Mike [address] [facility] HCl ER HCl ER 7-14 Zamudio with meal [facility] Tradjenta Tradjenta Yes Mike [address] [facility] 7-14 [...] Yes Mike [address] [facility] Lisinopril Lisinopril Yes Mike [address] [facility] Prilosec Prilosec Yes Mike [address] OTC OTC Zamud[facility] Levothyroxi Levothyroxi Yes Mike [address] [facility] ne Sodium ne Sodium Zamudio on an Melissa es - empty [facility] stomach in l the Outpati morning ent Clinics Procedures This patient has no known procedures. Encounters Start End Encounter Admission Attending Care Care Encounter Source Date/Time Date/Time Type Type Clinicians Facility Department ID 2020-07-01 2020-07-[address] [facility] [id number] 2020-06-02 2020-06-02 [facility] [id number] 2020-05-29 2020-05-29 [facility] [id number] [facility] 2020-05-28 2020-05-28 [facility] [id number] [facility] 2020-05-27 2020-05-27 [facility] [id number] [facility] 2020-04-22 2020-04-22 [facility] [id number] [facility] 11:39:00 11:39:00 [facility] Medicine Outpati ent Clinics 2020-04-15 2020-04-15 [facility] [id number] 15:20:00 15:20:00 [facility] Medicine Outpati ent Clinics 2020-04-07 2020-04-07 [facility] [id number] [facility] 07:48:00 07:48:00 [facility] Family Medicine l Medicine Outpati ent Clinics 2020-04-03 2020-04-03 Laboratory Lab, [facility] [id number] 15:59:39 16:19:39 Only [facility] [id number] [place] [id number] Professio [phone] nal 0[address] 2020-04-03 2020-04-03 [facility] [id number] [address] 11:15:00 11:15:00 [facility] Family Medicine l Medicine Outpati ent Clinics 2020-03-07 2020-03-07 [facility] [id number] [facility] [address] 08:15:00 08:15:00 [facility] Family Medicine l Medicine Outpati ent Clinics 2020-02-27 2020-02-27 [facility] [id number] [facility] 11:04:00 11:04:00 [facility] Family Medicine l Medicine Outpati ent Clinics 2020-02-25 2020-02-25 [facility] [id number] 10:39:00 10:39:00 [facility] Family Medicine l Medicine Outpati ent Clinics 2020-01-30 2020-01-30 [facility] [id number] [facility] 15[facility]45:00 15:45:00 [facility] Family Medicine l Medicine Outpati ent Clinics 2020-01-30 2020-01-30 [facility] [id number] 15:45:00 15:45:00 t [facility] Medicine l Medicine Outpati ent Clinics 2020-01-09 2020-01-09 [facility] [id number] [facility] [address] 11:17:00 11:17:00 [facility] Family Medicine l Medicine Outpati ent Clinics 2019-11-27 2019-11-27 [facility] [id number] [address] 14:00:[facility] 14:00:[address] [place] [facility] 2019-05-22 2019-05-22 [facility] [id number] [facility] 16:00:00 16:00:00 [facility] Medicine Outpati ent Clinics 2019-05-08 2019-05-08 [facility] [id number] [address] 16:15:00 16:15:00 [facility] Medicine Outpati ent Clinics 2019-03-20 2019-03-20 [facility] [id number] [address] 08:20:00 08:20:00 [facility] Medicine Outpati ent Clinics 2019-02-13 2019-02-13 [facility] [id number] 16:15:00 16:15:00 [facility] Medicine Outpati ent Clinics 2018-11-24 2018-11-24 [facility] [id number] [address] 16:23:00 16:23:00 [facility] Medicine Outpati ent Clinics 2018-11-13 2018-11-13 [facility] [id number] 16:30:00 16:30:00 [facility] Medicine Outpati ent Clinics 2018-09-28 2018-09-28 [facility] [id number] [facility] 15:00:00 15:00:00 [facility] Medicine Outpati ent Clinics Results This patient has no known results.
--- OUTSIDE RECORDS SUMMARY | 2020-07-31 04:55 | XMS REPORT ---
:1950 Author Organization [facility] Address [address] [place] [address] Care Team Providers Name Role Phone Zamudio Unavailable [phone] PROBLEMS Type Condition ICD9-CM [id number] Onset Condition SNOMED Code Notes Code Code Dates Status Problem Essential I10 Active 12618356 hypertension Problem History of diabetes Z86.39 Active 471417004 mellitus Problem Gastroesophageal K21.9 Active 353070382 reflux disease without esophagitis Problem Acquired E03.9 Active 890595234 hypothyroidism Problem Encounter for Z01.419 Active 727029536 gynecological examination without abnormal finding Problem Screening for colon Z12.11 Active 949311918 cancer Problem Diabetes 1.5, 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 Problem Mixed E78.2 Active 619516724 hyperlipidemia Problem BMI 32.0-32.9,adult Z68.32 Active 531425174 Problem Constipation, K59.00 Active 56672786 unspecified constipation type Problem Primary M19.91 Active 505101708 osteoarthritis, unspecified site Problem 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 178189922 osteoarthritis involving multiple joints Problem Type 2 diabetes E11.65 Active 58758256 mellitus with hyperglycemia, without long-term current use of insulin Problem Body mass index Z68.32 Active 801925364 (BMI) 32.0-32.9, adult Problem 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 468393211 to excess calories ALLERGIES No Known Allergies ENCOUNTERS from 1950 to 2020-06-02 Encounter Location Date Provider Diagnosis [facility] [address], [place] [address] IMMUNIZATIONS Vaccine Route Administration Date Status Rocephin [...] Acti ve day for 90 days Nystatin 841134 UNIT/GM 1 application to affected Mar, Not-Taking area Externally Twice a day Prilosec OTC 20 MG 1 tablet Orally Once a Active day PROCEDURES No Information RESULTS No Results REASON FOR VISIT Eye drops MEDICAL (GENERAL) HISTORY Type Description Date Surgical History thyroid 2006 Goals Section No Information Health Concerns No Information MEDICAL EQUIPMENT No Information MENTAL STATUS No Information FUNCTIONAL STATUS No Information ASSESSMENTS No Information PLAN OF TREATMENT Medication Medication Name Sig [...] Name:Mike Zamudio, 2020-07-23 0 3:50:00 PM, [address], [address], [place], [address], Provider Name:Mike Zamudio, 2020-07-30 0 4:40:00 PM, [address], [address], [place], [address], Insurance Providers Payer Name Payer Payer Insured Patient Coverage Coverage End Address Phone Name Relationship to Start Date Robby e Insured [employer] [phone] Sara Hinojosa [id number] [phone] [place] Replace [phone]
--- OUTSIDE RECORDS SUMMARY | 2020-07-31 04:55 | XMS REPORT ---
:1950 Author Organization [facility] Address [address], [address] [place] [address] Care Team Providers Name Role Phone Zamudio Unavailable [phone] PROBLEMS Type Condition ICD9-CM [id number] Onset Condition SNOMED Code Notes Code Code Dates Status Problem Essential I10 Active 11020512 hypertension Problem History of diabetes Z86.39 Active 414470555 mellitus Problem Gastroesophageal K21.9 Active 451394083 reflux disease without esophagitis Problem Acquired E03.9 Active 500494642 hypothyroidism Problem Encounter for Z01.419 Active 345106211 gynecological examination without abnormal finding Problem Screening for colon Z12.11 Active 813040022 cancer Problem Diabetes 1.5, 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 222346313 managed as type 2 Problem Mixed E78.2 Active 430629995 hyperlipidemia Problem BMI 32.0-32.9,adult Z68.32 Active 823448914 Problem Constipation, K59.00 Active 41472118 unspecified constipation type Problem Primary M19.91 Active 281380693 osteoarthritis, unspecified site Problem 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 674744660 osteoarthritis involving multiple joints Problem Type 2 diabetes E11.65 Active 20739551 mellitus with hyperglycemia, without long-term current use of insulin Problem Body mass index Z68.32 Active 127420455 (BMI) 32.0-32.9, adult Problem 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 [address] [place], [place] [address] H11.31 and All ergic conjunctivitis of both eyes H10.13 IMMUNIZATIONS Vaccine Route Administration Date Status Rocephin [...] REASON FOR REFERRAL No Information VITAL SIGNS Height 65 in May, Weight 186.2 lbs May, Temperature 97.2 degrees Fahrenheit May, BMI 30.98 kg/m2 May, Oximetry 96 % May, Respiratory Rate 18 /min May, Blood pressure systolic 134 mm Hg May, Blood pressure diastolic 70 mm Hg May, MEDICATIONS Medication SIG (Take, Route, Start Date End Date Status Frequency, Duration) Jardiance 10 MG 1 tablet Orally Once a Ac tive day for 30 days Prilosec OTC 20 MG 1 tablet Orally Once a Active day Lipitor 10 MG 1 tablet Orally Once a Acti ve day for 30 day(s) Nystatin 388344 UNIT/GM 1 application to affected Mar, Not-Taking area Externally Twice a day Restasis 0.05 % 1 drop into affected eye December, Active as needed Ophthalmic Twice a day for 30 days Lisinopril 10 MG 1 tablet Orally Once a A ctive day for 90 days Tradjenta 5 MG 1 tablet Orally Once a Act lianne day for 90 days Ondansetron HCl 4 MG 1 tablet Orally BID PRN Active Nausea MetFORMIN HCl ER 500 MG 2 tablets with meal Active Orally twice a day for 90 days Levothyroxine Sodium 100 1 tablet on an empty Active MCG stomach in the morning Orally Once a day for 90 days PROCEDURES No Information RESULTS No Results REASON FOR VISIT Eye redness MEDICAL (GENERAL) HISTORY Type Description Date Surgical History thyroid 2006 Goals Section No Information Health Concerns No Information MEDICAL EQUIPMENT No Information MENTAL STATUS No Information FUNCTIONAL STATUS No Information ASSESSMENTS Encounter Date Diagnosis Notes May, Subconjunctival hemorrhage of right eye (ICD-10 - H11.31) May, Allergic conjunctivitis of both eyes (IC D-10 - H10.13) PLAN OF TREATMENT Treatment Notes Assessment Notes Clinical Notes Subconjunctival hemorrhage of right Discussed differential d iagnosis eye with patient. Education given. Anticipatory guidance given. Discussed potential etiologies. No vision changes. Reassurance given. Will monitor closely. Allergic conjunctivitis of both eyes . Discussed supportive measures for symptomatic relief. Education given Next Appt Details prn Reason: Provider Name:[facility] Zamudio, 2020-06-02 0 4:20:00 PM, [address], [address], [place], [address], Insurance Providers Payer Name Payer Payer Insured Patient Coverage Coverage End Address Phone Name Relationship to Start Date Robby e Insured [email or web address] [phone] Sara Hinojosa [id number] [phone] [place] Replace [phone]
--- OUTSIDE RECORDS SUMMARY | 2020-07-31 04:56 | XMS REPORT ---
:1950 Author Organization [facility] Address [address], [address] [place] [address] Care Team Providers Name Role Phone Zamudio Unavailable [phone] PROBLEMS Type Condition ICD9-CM [id number] Onset Condition SNOMED Code Notes Code Code Dates Status Problem Essential I10 Active 08466019 hypertension Problem History of diabetes Z86.39 Active 510455119 mellitus Problem Gastroesophageal K21.9 Active 382377660 reflux disease without esophagitis Problem Acquired E03.9 Active 468923943 hypothyroidism Problem Encounter for Z01.419 Active 843766072 gynecological examination without abnormal finding Problem Screening for colon Z12.11 Active 773188593 cancer Problem Diabetes 1.5, 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 046255754 managed as type 2 Problem Mixed E78.2 Active 059604741 hyperlipidemia Problem BMI 32.0-32.9,adult Z68.32 Active 296648985 Problem Constipation, K59.00 Active 48207238 unspecified constipation type Problem Primary M19.91 Active 214063482 osteoarthritis, unspecified site Problem 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 225116055 osteoarthritis involving multiple joints Problem Type 2 diabetes E11.65 Active 23038288 mellitus with hyperglycemia, without long-term current use of insulin Problem Body mass index Z68.32 Active 675464590 (BMI) 32.0-32.9, adult Problem 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 538522777 to excess calories ALLERGIES No Known Allergies ENCOUNTERS from 1950 to 2020-07-04 Encounter Location Date Provider Diagnosis [facility] [address] Jun, Mike Zamudio [address] [place], [place] [address] chronicity pat tern, unspecified hea dache type R51.9 IMMUNIZATIONS Vaccine Route Administration Date Status Rocephin (Ceftriaxone) IM Intramuscular Apr 03, 2020 Administ eresurjit SOCIAL HISTORY Tobacco Use: Social History Observation [...] No information MEDICATIONS Medication SIG (Take, Route, Notes Start Date End Date Status Frequency, Duration) Restasis 0.05 % 1 drop into affected December, Active eye as needed Ophthalmic Twice a day for 30 days Ondansetron HCl 4 MG 1 tablet Orally BID Active PRN Nausea Lisinopril 10 MG 1 tablet Orally Once a Active day for 90 days Levothyroxine Sodium 100 1 tablet on an empty Active MCG stomach in the morning Orally Once a day for 90 days GlipiZIDE ER 5 MG 1 tablet with food May, Active Orally Once a day for 90 days MetFORMIN HCl ER 500 MG 2 tablets with meal Active Orally twice a day for 90 days Lipitor 10 MG 1 tablet Orally Once a Active day for 90 days Nystatin 761589 UNIT/GM 1 application to Mar, Not-Taking affected area Externally Twice a day Prilosec OTC 20 MG 1 tablet Orally Once a Active day PROCEDURES No Information RESULTS No Results REASON FOR VISIT Referral - MEDICAL (GENERAL) HISTORY Type Description Date Surgical History thyroid 2006 Goals Section No Information Health Concerns No Information MEDICAL EQUIPMENT No Information MENTAL STATUS No Information FUNCTIONAL STATUS No Information ASSESSMENTS Encounter Date Diagnosis Assessment Notes Treatment Notes Treatm ent Clinical Notes Jun, Nonintractable headache, unspecified chronicity pattern, unspecified headache type (ICD-10 - R51.9) PLAN OF TREATMENT Medication Medication Name Sig [...] 1 tablet with food Orally Once a 19 May, 2020 day for 90 days Prilosec OTC 20 MG 1 tablet Orally Once a day Ondansetron HCl 4 MG 1 tablet Orally BID PRN Nausea Next Appt Details Provider Name:Mike Zamudio, 2020-07-23 0 3:50:00 PM, [address], [address], [place], [address], Provider Name:Mike Zamudio, 2020-07-30 0 4:40:00 PM, [address], [address], [place], [address], Insurance Providers Payer Name Payer Payer Insured Patient Coverage Coverage End Address Phone Name Relationship to Start Date Robby e Insured [employer] [facility] [phone] Sara Hinojosa [id number] [phone] [place] Replace [phone]
--- OUTSIDE RECORDS SUMMARY | 2020-07-31 04:56 | XMS REPORT ---
:1950 Author Organization [facility] Address [address] [place], [place] [place] [address] Care Team Providers Name Role Phone Zamudio Unavailable [phone] PROBLEMS Type Condition ICD9-CM [id number] Onset Condition SNOMED Code Notes Code Code Dates Status Problem Essential I10 Active 20103783 hypertension Problem History of diabetes Z86.39 Active 341668825 mellitus Problem Gastroesophageal K21.9 Active 726605486 reflux disease without esophagitis Problem Acquired E03.9 Active 135572107 hypothyroidism Problem Encounter for Z01.419 Active 561323474 gynecological examination without abnormal finding Problem Screening for colon Z12.11 Active 157573062 cancer Problem Diabetes 1.5, 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 Problem Mixed E78.2 Active 775654345 hyperlipidemia Problem BMI 32.0-32.9,adult Z68.32 Active 611236830 Problem Constipation, K59.00 Active 81783464 unspecified constipation type Problem Primary M19.91 Active 648923578 osteoarthritis, unspecified site Problem 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 147769872 osteoarthritis involving multiple joints Problem Type 2 diabetes E11.65 Active 55719705 mellitus with hyperglycemia, without long-term current use of insulin Problem Body mass index Z68.32 Active 865578423 (BMI) 32.0-32.9, adult Problem 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 832826702 to excess calories ALLERGIES No Known Allergies ENCOUNTERS from 1950 to 2020-06-02 Encounter Location Date Provider Diagnosis [facility] [place] [address] [place], [facility] Zamudio Type [address] [place], [place] hyper glycemia, [place] [address] without long-t erm current use of insulin E11.65 ; Subcon junctival hemorrhage of r ight eye H11.31 ; Acquir ed hypothyroidism E03.9 ; Gastroesophagea l reflux disease without esophagitis K21 .9 ; Essential hyper tension I10 ; Primary osteoarthritis involving multiple joints M89.49 ; Other obesity d ue to excess calories E66.09 ; Body mass index (BMI) 32.0-32.9, adul t Z68.32 ; Mixed hyperli pidemia E78.2 ; Nausea alone R11.0 and Aller gic conjunctivitis of both eyes H10.13 IMMUNIZATIONS Vaccine [...] VITAL SIGNS Height 65 in May, Weight 186.7 lbs May, Temperature 97.1 degrees Fahrenheit May, BMI 31.07 kg/m2 May, Oximetry 97 % May, Respiratory Rate 17 /min May, Blood pressure systolic 138 mm Hg May, Blood pressure diastolic 62 mm Hg May, MEDICATIONS Medication SIG (Take, [...] Acti ve day for 90 days Nystatin 821652 UNIT/GM 1 application to affected Mar, Not-Taking area Externally Twice a day Prilosec OTC 20 MG 1 tablet Orally Once a Active day PROCEDURES No Information RESULTS No Results REASON FOR VISIT lab and eye f/u [facility] (GENERAL) HISTORY Type Description Date Surgical History thyroid 2006 Goals Section No Information Health Concerns No Information MEDICAL EQUIPMENT No Information MENTAL STATUS No Information FUNCTIONAL STATUS No Information ASSESSMENTS Encounter Date Diagnosis Notes May, Nausea alone (ICD-10 - R11.0) May, Mixed hyperlipidemia (ICD-10 - E78.2) May, Type 2 diabetes mellitus with hyperglyce mignon, without long-term current use of insulin (ICD-10 - E11.65) May, Allergic conjunctivitis of both eyes (IC D-10 - H10.13) May, Primary osteoarthritis involving multipl e joints (ICD-10 - M89.49) May, Body mass index (BMI) 32.0-32.9, adult ( ICD-10 - Z68.32) May, Other obesity due to excess calories (IC D-10 - E66.09) May, Acquired hypothyroidism (ICD-10 - E03.9) May, Subconjunctival hemorrhage of right eye (ICD-10 - H11.31) May, Essential hypertension (ICD-10 - I10) May, Gastroesophageal reflux disease without esophagitis (ICD-10 - K21.9) PLAN OF TREATMENT Medication Medication Name Sig [...] MG 1 tablet Orally BID PRN Nausea Treatment Notes Assessment Notes Clinical Notes Type 2 diabetes mellitus with ON Metofmrin BID. Stop Will m rakan medication hyperglycemia, without Tradjenta 5 mg and Jardiance titratio n. Encouraged long-term current use of 10 mg. Start glipizide 5 mg on tary changes. insulin extremely once daily in the Patient decl ined any morning. Discussed side injections at t his time. effect panel extensively. Monitor blood sugar. Education given., Diabetes Education Diabetes is a disorder that disrupts the way your body uses glucose (sugar). It is a chronic medication condition that requires regular monitoring and treatment throughout your life. Treatment includes: lifestyle modification, self-care measures, and medication. Fortunately, these treatments can keep the blood sugar levels close to normal and minimize the risk of developing complications. The primary blood test to measure the progress of diabetes is the Hemoglobin A1c. Normal levels is less than 7.0 but less than 6.5 is considered excellent control. Fasting blood sugars should be in the range of 80-120 while random blood sugars should range below 200 especially after meals. Carbohydrate (sugar) intake for diabetics should be below 45 grams per meal and 15 grams per snack. Diabetic preventive care is vital to prevent complications, so it is important to have yearly diabetic eye and foot exams with specialists. If your diabetes is not controlled, then contact your doctor to further address.Medication may need to be adjusted and/or added. Subconjunctival hemorrhage of Discussed differential right eye diagnosis with patient. Education given. Anticipatory guidance given. Discussed potential etiologies. No vision changes. Reassurance given. Will monitor closely. Improving. Acquired hypothyroidism . Refill given. Side effect discussed. Labs ordered. Education given. , Hypothyroidism Education: This a condition in which the thyroid gland does not produce enough thyroid hormone for the body. The hormones are important in regulating the body''s use of storing and controlling energy. Symptoms are widely varied and often mimick the body''s normal changes of life. Symptoms may include: fatigue, shortness of breath with exertion, dry skin, hair loss, constipation, depressed feeling, weight gain and temperature intolerance. A blood test is used to determine the thyroid levels. Treatment involves the use of medication in order to balance the TSH and T4 hormone levels. Treatment is indefinite and often lifelong. Your hormone levels will need to be checked periodically to insure that the levels are balanced. Compliance with medication is vital. Overtreated hormone levels can lead to complications. Contact your doctor if you have any abnormal symptoms. Gastroesophageal reflux disease . Discussed long-term impact without esophagitis of PPI usage. , We have discussed the pathophysiology of reflux disease and we discussed lifestyle modifications to avoid reflux that include elevation head of the bed, avoid alcohol, avoid caffeine, avoid maintenance, avoid tight clothing, avoid eating within 3-4 hours before bedtime, and avoiding smoking. Essential hypertension . Refill given. Side effect discussed. , DASH Diet discussed. Instructed to measure BP at home and bring in log to f/u appt. Instructions and logs given. Education given. , HTN Education This is a condition that puts at risk for heart attack, stroke, and kidney disease. Lifestyle modification, low fat/low salt diet, exercise, low alcohol intake and medication is utilized to help control your BP. Untreated HTN increases the strain on the heart and arteries, eventually causing organ damage.Normal BP is less than 140/90. High BP is greater than 140/90. If your BP is not controlled, call your doctor. Medication may need to be adjusted and/or added. Compliance with medication is vital. If you have chest pain, shortness of breath, severe nausea/vomiting, fatigue, and other symptoms, you will need to contact your doctor or go to the ER immediately to address. Primary osteoarthritis . Stable with involving multiple joints [id number] medication. Education given. Discussed supportive measures for symptomatic relie Body mass index (BMI) Counseling given 32.0-32.9, adult Mixed hyperlipidemia Start Lipitor 10 mg and titrate as tolerated. Side effect panel discussed. Educated patient on benefits of being on statin due to diagnosis of diabetes. Will recheck in 3 months. Education given., Hyperlipidemia Education: Hyperlipidemia refers to increased levels of lipids(fats) in the blood, including cholesterol and triglycerides. This can significantly increase your risk of developing coronary artery disease and peripheral artery disease. This can cause chest pain, heart attack, stroke, and fatigue. Treatment is recommended to decrease your risk. Treatment includes: lifestyle modification, low salt/low fat diet, exercise, tobacco cessation, low alcohol intake and sometimes medication. Blood tests (TC,TG, HDL, LDL) are utilized to determine treatment regimens. TC(Total cholesterol) should be below 200. TG(Total Triglycerides) should be below 150. HDL(Good cholesterol) should be above 40. LDL(Bad Cholesterol) should be below 130(if you have one risk factor) or less than 100( if you have more than one risk factor or have DM/CAD/PVD). Compliance with medication and treatment is vital. If you have questions, talk to your doctor. Nausea alone Differential diagnosis extensively patient. Education given. Intermittent ongoing for the past several years. Concern for anxiety and nervousness. Will provide demonstration to use seldomly. Side effect panel discussed extensively. Allergic conjunctivitis of both . Discussed supportive eyes measures for symptomatic relief. Education given Treatment Notes Test Name Order Date Lipid Panel With LDL/HDL Ratio 2020-06-02 Thyroid Panel With TSH 2020-06-02 Microalbumin/Creat Ratio, Random Ur 2020-06-02 Hemoglobin A1c 2020-06-02 Comp. Metabolic Panel (14) (CMP) 2020-06-02 CBC With Differential/Platelet 2020-06-02 Next Appt Details 2 Months + Labs 1 week Reason: Provider Name:Mike Robb, 2020-07-23 0 3:50:00 PM, [address], [address], [place], [address], Provider Name:Mike Zamudio 2020-07-30 0 4:40:00 PM, [address], [address], [place], [address], Insurance Providers Payer Name Payer Payer Insured Patient Coverage Coverage End Address Phone Name Relationship to Start Date Robby e Insured [employer] [phone] [id number] [place] Replace [phone]
[2020-07-31] MEDS ORDERED: METOCLOPRAMIDE 10 MG/2mL INJ ONE (05:47)
[2020-07-31] MEDS ORDERED: DIPHENHYDRAMINE 50 MG/ML VIAL ONE (05:48)
[2020-07-31] MEDS ORDERED: NA CHLORIDE 0.9% 500 ML ONE (05:48)
[2020-07-31] MEDS ORDERED: ACETAMINOPHEN 500 MG TAB ONE (05:48)
[2020-07-31 05:51] LABS: Absolute Lymphocytes (CBC) 2.4 K/uL (0.7-4.9); Basophils % 0.6 % (0-1.3); Hematocrit 40.1 % (36.0-45.0); Lymphocytes % 33.2 % (15.3-44.8); RBC Red Blood Cell Count 4.23 M/uL (3.86-4.86)
[2020-07-31 05:56] LABS: Protime INR 0.9
[2020-07-31 06:11] LABS: ALT/SGPT 35 U/L (12-78); AST/SGOT 25 U/L (15-37); Albumin 3.4 g/dL (3.4-5.0); Alkaline Phosphatase 95 U/L (45-117); BUN Blood Urea Nitrogen 11 mg/dL (7-18); Bicarbonate 24 mmol/L (21-32); Bilirubin Direct 0.1 mg/dL (0-0.2); Bilirubin Total 0.4 mg/dL (0.2-1.0); Glucose Level 112 mg/dL (74-106); Magnesium 2.3 mg/dL (1.8-2.4); NT PRO-BNP 48 pg/mL (<125); Potassium 4.2 mmol/L (3.5-5.1); Sodium Level 143 mmol/L (136-145); Troponin (Emerg Dept Use Only) < 0.02 ng/mL (0.0-0.045)
--- NOTE | 2020-07-31 06:49 | ER ---
Nurse's Notes [facility] Name: Katya Hinojosa Age: 70 yrs Sex: Female : 1950 Arrival Date: 07/31/2020 Time: 04:57 Bed 4 Private MD: Diagnosis: Hypertension;Headache Presentation: 07/31 04:59 Onset of symptoms was July 31, 2020. Care prior to arrival: None. sg 04:59 Acuity: AMAYA 3 sg 04:59 Chief complaint: Patient states: Having high blood pressure this AM. Coronavirus sg screen: Client denies travel out of the [place] in the last 14 days. At this time, the client does not indicate any symptoms associated with coronavirus-19. Ebola Screen: Patient negative for fever greater than or equal to 101.5 degrees Fahrenheit, and additional compatible Ebola Virus Disease symptoms Patient denies exposure to infectious person. Patient denies travel to an Ebola-affected area in the 21 days before illness onset. No symptoms or risks identified at this time. Initial Sepsis Screen: Does the patient meet any 2 criteria? No. Patient's initial sepsis screen is negative. Does the patient have a suspected source of infection? No. Patient's initial sepsis screen is negative. Risk Assessment: Do you want to hurt yourself or someone else? Patient reports no desire to harm self or others. 04:59 Method Of Arrival: Ambulatory sg Historical: - Allergies: 04:58 No Known Allergies; sg - PMHx: 04:58 Diabetes - NIDDM; High Cholesterol; Hypertension; Hypothyroidism; sg - PSHx: 04:58 Thyroidectomy; sg - Immunization history:: Adult Immunizations up to date. - Social history:: Smoking status: Patient denies any tobacco usage or history of. Screenin:19 Abuse screen: Denies threats or abuse. Nutritional screening: No deficits noted. ea Tuberculosis screening: No symptoms or risk factors identified. Fall Risk None identified. Assessment: 05:28 General: Appears comfortable, Behavior is calm, cooperative. Pain: Complains of pain in rv head. 05:28 Neuro: Level of Consciousness is awake, alert, obeys commands, Oriented to person, rv place, time, situation, Reports headache. Cardiovascular: Patient's skin is warm and dry. Cardiovascular: Denies chest pain, shortness of breath. Respiratory: Airway is patent Respiratory effort is even, unlabored. Derm: Skin is intact. 05:40 Reassessment: Pt taken to CT. ea 06:58 Reassessment: Patient and/or family updated on plan of care and expected duration. Pain ea level reassessed. Patient is alert, oriented x 3, equal unlabored respirations, skin warm/dry/pink. Discharge instruction given to patient verbalized the understanding of instruction. Pt left ED ambulatory tolerating well. Vital Signs: 04:59 BP 156 / 62; Pulse 88; Resp 16; Temp 97.3; Pulse Ox 96% on R/A; sg 06:31 BP 121 / 59; Pulse 60; Resp 18; Pulse Ox 98% ; ea ED Course: 04:57 Patient arrived in ED. bp1 04:59 Triage completed. sg 04:59 Arm band placed on. sg 05:07 Bandar Watson, SEKOU is Primary Nurse. rv 05:08 Tomi Catalan MD is Attending Physician. mh7 05:19 Patient has correct armband on for positive identification. Bed in low position. Call ea light in reach. Side rails up X 1. 05:29 No provider procedures requiring assistance completed. rv 05:35 Inserted saline lock: 22 gauge in left forearm, using aseptic technique. Blood ds4 collected. 05:50 CT Head Brain wo Cont In Process Unspecified. EDMS 06:07 XRAY Chest (1 view) In Process Unspecified. EDMS 06:48 Christopher Hoover MD is Referral Physician. 7 07:01 IV discontinued, intact, bleeding controlled, No redness/swelling at site. Pressure ea dressing applied. Administered Medications: 05:39 Drug: Benadryl 25 mg Route: IVP; Site: left forearm; ea 06:14 Follow up: Response: No adverse reaction ea 05:39 Drug: Tylenol 1000 mg Route: PO; ea 06:15 Follow up: Response: No adverse reaction ea 05:39 Drug: NS 0.9% 500 ml Route: IV; Rate: bolus; Site: left forearm; ea 06:00 Follow up: Response: No adverse reaction; IV Status: Completed infusion ea 05:40 Drug: Reglan 10 mg Route: IVP; Site: left forearm; ea 06:14 Follow up: Response: No adverse reaction ea Outcome: 06:48 Discharge ordered by . mh7 07:00 Discharged to home ambulatory. evita 07:00 Condition: stable 07:00 Discharge instructions given to patient, Instructed on discharge instructions, follow up and referral plans. Demonstrated understanding of instructions, follow-up care. 07:03 Patient left the ED. evita Signatures: Dispatcher [employer] EDNoble Moreno, Leo Jaramillo RN ds4 Jeannette Carpio RN RN ea Vicente, Ronaldo, RN RN rv Paniauga, Brittany bp1 Holmes, Maurice, MD MD mh7
--- NOTE | 2020-07-31 06:49 | EDPHYS ---
Physician Documentation [facility] Name: Katya Hinojosa Age: 70 yrs Sex: Female : 1950 Arrival Date: 07/31/2020 Time: 04:57 Bed 4 Private MD: ED Physician Tomi Catalan HPI: 07/31 05:29 This 70 yrs old Female presents to ER via Ambulatory with complaints of High mh7 Blood Pressure. 05:29 The patient has elevated blood pressure and discovered this at home, with a home device.mh7 05:29 Onset: The symptoms/episode began/occurred yesterday. Modifying factors: The symptoms mh7 are aggravated by nothing, The symptoms are alleviated by nothing. Associated signs and symptoms: Pertinent positives: headache, Pertinent negatives: chest pain, dizziness, dyspnea, lightheadedness, nausea, visual changes, vomiting, weakness. Severity of symptoms: At its worst the blood pressure was 190 mm Hg, in the emergency department the blood pressure is improved, moderately. The patient has experienced similar episodes in the past, several times. Historical: - Allergies: 04:58 No Known Allergies; sg - PMHx: 04:58 Diabetes - NIDDM; High Cholesterol; Hypertension; Hypothyroidism; sg - PSHx: 04:58 Thyroidectomy; sg - Immunization history:: Adult Immunizations up to date. - Social history:: Smoking status: Patient denies any tobacco usage or history of. ROS: 05:29 Constitutional: Negative for fever, chills, and weight loss, Eyes: Negative for injury, mh7 pain, redness, and discharge, ENT: Negative for injury, pain, and discharge, Neck: Negative for injury, pain, and swelling, Cardiovascular: Negative for chest pain, palpitations, and edema, Respiratory: Negative for shortness of breath, cough, wheezing, and pleuritic chest pain, Abdomen/GI: Negative for abdominal pain, nausea, vomiting, diarrhea, and constipation, Back: Negative for injury and pain, : Negative for injury, bleeding, discharge, and swelling, MS/Extremity: Negative for injury and deformity, Skin: Negative for injury, rash, and discoloration, Psych: Negative for depression, anxiety, suicide ideation, homicidal ideation, and hallucinations, Allergy/Immunology: Negative for hives, rash, and allergies, Endocrine: Negative for neck swelling, polydipsia, polyuria, polyphagia, and marked weight changes, Hematologic/Lymphatic: Negative for swollen nodes, abnormal bleeding, and unusual bruising. Exam: 05:29 Constitutional: This is a well developed, well nourished patient who is awake, alert, mh7 and in no acute distress. Head/Face: Normocephalic, atraumatic. Eyes: Pupils equal round and reactive to light, extra-ocular motions intact. Lids and lashes normal. Conjunctiva and sclera are non-icteric and not injected. Cornea within normal limits. Periorbital areas with no swelling, redness, or edema. Neck: Trachea midline, no thyromegaly or masses palpated, and no cervical lymphadenopathy. Supple, full range of motion without nuchal rigidity, or vertebral point tenderness. No Meningismus. Chest/axilla: Normal chest wall appearance and motion. Nontender with no deformity. No lesions are appreciated. Cardiovascular: Regular rate and rhythm with a normal S1 and S2. No gallops, murmurs, or rubs. Normal PMI, no JVD. No pulse deficits. Respiratory: Lungs have equal breath sounds bilaterally, clear to auscultation and percussion. No rales, rhonchi or wheezes noted. No increased work of breathing, no retractions or nasal flaring. Abdomen/GI: Soft, non-tender, with normal bowel sounds. No distension or tympany. No guarding or rebound. No evidence of tenderness throughout. Back: No spinal tenderness. No costovertebral tenderness. Full range of motion. Skin: Warm, dry with normal turgor. Normal color with no rashes, no lesions, and no evidence of cellulitis. MS/ Extremity: Pulses equal, no cyanosis. Neurovascular intact. Full, normal range of motion. Neuro: Awake and alert, GCS 15, oriented to person, place, time, and situation. Cranial nerves II-XII grossly intact. Motor strength 5/5 in all extremities. Sensory grossly intact. Cerebellar exam normal. Normal gait. Psych: Awake, alert, with orientation to person, place and time. Behavior, mood, and affect are within normal limits. 06:45 ECG was reviewed by the Attending Physician. [facility] Vital Signs: 04:59 BP 156 / 62; Pulse 88; Resp 16; Temp 97.3; Pulse Ox 96% on R/A; sg 06:31 BP 121 / 59; Pulse 60; Resp 18; Pulse Ox 98% ; ea MDM: 06:45 Differential diagnosis: hypertensive crisis, Malignant HTN, intracerebral hemorrhage, 7 Headache, Migraine. Data reviewed: vital signs, nurses notes, old medical records, lab test result(s), cardiac enzymes, CBC, electrolytes, urinalysis, EKG, radiologic studies, CT scan, plain films. Data interpreted: Pulse oximetry: on room air is 98 %. Interpretation: normal. Counseling: I had a detailed discussion with the patient and/or guardian regarding: the historical points, exam findings, and any diagnostic results supporting the discharge/admit diagnosis, the presence of at least one elevated blood pressure reading (>120/80) during this emergency department visit, lab results, radiology results, the need for outpatient follow up, to return to the emergency department if symptoms worsen or persist or if there are any questions or concerns that arise at home. Response to treatment: the patient's symptoms have resolved after treatment, the patient's blood pressure is in an acceptable range, mental status has returned to baseline, the patient no longer shows bradycardia, the patient is not short of breath, the patient is not tachycardic, the patient's pain is gone, the patient's temperature has normalized, the patient's condition has returned to base line, the patient is now symptom free. 06:48 Patient medically screened. [facility] 07/31 05:27 Order name: Basic Metabolic Panel; Complete Time: 06:14 [facility] 07/31 05:27 Order name: CBC with Diff; Complete Time: 06:03 [facility] 07/31 05:27 Order name: LFT's; Complete Time: 06:14 [facility] 07/31 05:27 Order name: Magnesium; Complete Time: 06:14 [facility] 07/31 05:27 Order name: NT PRO-BNP; Complete Time: 06:14 [facility] 07/31 05:27 Order name: PT-INR; Complete Time: 06:03 [facility] 07/31 05:27 Order name: Troponin (emerg Dept Use Only); Complete Time: 06:14 [facility] 07/31 05:27 Order name: XRAY Chest (1 view) [facility] 07/31 05:27 Order name: EKG; Complete Time: 05:28 [facility] 07/31 05:27 Order name: CT Head Brain wo Cont [facility] 07/31 05:27 Order name: IV Saline Lock; Complete Time: 05:40 7 07/31 05:27 Order name: Labs collected and sent; Complete Time: :40 7 07/31 05:27 Order name: O2 Per Protocol; Complete Time: :40 7 07/31 05:27 Order name: O2 Sat Monitoring; Complete Time: 05:40 mh7 EC:45 Rate is 54 beats/min. Rhythm is regular, Sinus bradycardia. QRS [place] is Normal. [place] mh7 interval is normal. QRS interval is normal. QT interval is normal. No Q waves. T waves are Normal. No ST changes noted. Clinical impression: Sinus bradycardia. Administered Medications: 05:39 Drug: Benadryl 25 mg Route: IVP; Site: left forearm; ea 06:14 Follow up: Response: No adverse reaction ea 05:39 Drug: Tylenol 1000 mg Route: PO; ea 06:15 Follow up: Response: No adverse reaction ea 05:39 Drug: NS 0.9% 500 ml Route: IV; Rate: bolus; Site: left forearm; ea 06:00 Follow up: Response: No adverse reaction; IV Status: Completed infusion ea 05:40 Drug: Reglan 10 mg Route: IVP; Site: left forearm; ea 06:14 Follow up: Response: No adverse reaction ea Disposition: 07/31/20 06:48 Discharged to Home. Impression: Hypertension, Headache. - Condition is Stable. - Discharge Instructions: Hypertension, [id number], General Headache Without Cause, [id number]. - Work release form, Medication Reconciliation Form, Thank You Letter, Antibiotic Education, Prescription Opioid Use form. - Follow up: Private Physician; When: 1 - 2 days; Reason: Worsening of condition, Recheck today's complaints, Continuance of care, Re-evaluation by your physician. Follow up: Christopher Hoover MD; When: 1 - 2 days; Reason: Worsening of condition, Recheck today's complaints. - Problem is an acute exacerbation. - Symptoms have improved. Signatures: Dispatcher [employer] EDMS Noble Solo RN RN sg Antunez, Elena, RN RN ea Holmes, Maurice, MD MD 7 Corrections: (The following items were deleted from the chart) 07:03 06:48 07/31/2020 06:48 Discharged to Home. Impression: Hypertension; Headache. ea Condition is Stable. Forms are Medication Reconciliation Form, Thank You Letter, Antibiotic Education, Prescription Opioid Use. Follow up: Private Physician; When: 1 - 2 days; Reason: Worsening of condition, Recheck today's complaints, Continuance of care, Re-evaluation by your physician. Follow up: Christopher Hoover; When: 1 - 2 days; Reason: Worsening of condition, Recheck today's complaints. Problem is an acute exacerbation. Symptoms have improved. mh7
--- NOTE | 2020-07-31 08:32 | RAD REPORT ---
EXAM DESCRIPTION: RAD - Chest Single View - 07/31/2020 6:06 am CLINICAL HISTORY: hypertensive Chest pain. COMPARISON: Chest Single View dated 09/20/2018; Chest Single View dated 03/21/2017; Chest Single View da mahsa 08/12/2016; CHEST SINGLE VIEW dated 06/08/2015 FINDINGS: Portable technique limits examination quality. The lungs are grossly clear. The heart is normal in size. No displaced fractures. IMPRESSION: No acute intrathoracic process suspected.
--- NOTE | 2020-07-31 10:41 | RAD REPORT ---
EXAM DESCRIPTION: CT Head Without Intravenous Contrast CLINICAL HISTORY: The patient is 70 years old and is Female; HEADACHE TECHNIQUE: Axial computed tomography images of the head/brain without intravenous contrast. Sagitta l and coronal reformatted images were created and reviewed. This CT exam was performed using one or more of the following dose reduction techniques: automated exposure control, adjustment of the mA and/or kV according to patient size, and/or use of iterative reconstruction technique. COMPARISON: No relevant prior studies available. FINDINGS: Brain: Unremarkable. No hemorrhage. No significant white matter disease. No edema. Ventricles: Unremarkable. No ventriculomegaly. Bones/joints: Unremarkable. No acute skull fracture. Soft tissues: Unremarkable. Sinuses: Unremarkable as visualized. No acute sinusitis. Mastoid air cells: No significant mastoid fluid. IMPRESSION: No acute intracranial findings. No hemorrhage. 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 The interpreting r adiologist is fully responsible for the content of the report.
[2020-08-01 09:54] VITALS: TEMP 97.3
[2020-08-01 09:56] VITALS: BP 121/59; O2SAT 98
--- NOTE | 2020-08-02 14:04 | EKG ---
Test Date: 2020-07-31 Test Time: 06:42:41 Marketing Development Manager: JANIYA MEASUREMENT RESULTS: Intervals: Rate: 54 ME: 176 QRSD: 78 QT: 412 QTc: 390 [place]: P: 24 ME: 176 QRS: -6 T: 0 INTERPRETIVE STATEMENTS: Sinus bradycardia with marked sinus arrhythmia Otherwise normal ECG Compared to ECG 09/20/2018 09:06:12 Left ventricular hypertrophy no longer present Electronically Signed On 08-02-20 13:59:18 SURGICAL ASSISTANT CERTIFIED by Tahir White
== END 2020-07-31 07:03 | disposition home or self-care (01) ==
LOC: ER 04:53
DX: I10 Essential (primary) hypertension (principal)
CPT/HCPCS: 93005; 85025; 80048; 36415; 83735; 85610; 80076; 84484; 83880; 70450; 71045; 96375; 96374; 99284; J1200; J2765; J7040

== ENCOUNTER 2020-09-07 10:35 | Emergency (ER) | payer OTHER ==
--- OUTSIDE RECORDS SUMMARY | 2020-09-07 10:38 | XMS REPORT ---
:1950 Author Organization [facility] Address [address] [place] [address] Care Team Providers Name Role Phone Zamudio Unavailable [phone] PROBLEMS Type Condition ICD9-CM LAA06-[id number] Onset Condition SNOMED Code Notes Code Code Dates Status Problem Essential I10 Active 17867653 hypertension Problem History of diabetes Z86.39 Active 564533357 mellitus Problem Gastroesophageal K21.9 Active 552554555 reflux disease without esophagitis Problem Acquired E03.9 Active 850631135 hypothyroidism Problem Encounter for Z01.419 Active 838127212 gynecological examination without abnormal finding Problem Screening for colon Z12.11 Active 026423606 cancer Problem Diabetes 1.5, 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 Problem Mixed E78.2 Active 829475727 hyperlipidemia Problem BMI 32.0-32.9,adult Z68.32 Active 691598859 Problem Constipation, K59.00 Active 54618809 unspecified constipation type Problem Primary M19.91 Active 319290172 osteoarthritis, unspecified site Problem 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 051283000 osteoarthritis involving multiple joints Problem Type 2 diabetes E11.65 Active 85885373 mellitus with hyperglycemia, without long-term current use of insulin Problem Body mass index Z68.32 Active 474003966 (BMI) 32.0-32.9, adult Problem 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 324928333 to excess calories ALLERGIES No Known Allergies ENCOUNTERS from 1950 to 2020-08-04 Encounter Location Date Provider Diagnosis [facility] [address] Jul, [place] [address] IMMUNIZATIONS Vaccine Route Administration Date Status Rocephin [...] Start Date End Date Status Frequency, Duration) Omeprazole 40 MG 1 capsule 30 minutes Active before morning meal Orally Once a day for 90 Restasis 0.05 % 1 drop into affected December, Active eye as needed Ophthalmic Twice a day for 30 days Lisinopril 10 MG 1 tablet Orally Once a Active day for 90 days Prilosec OTC 20 MG 1 tablet Orally Once a Active day Nystatin 886302 UNIT/GM 1 application to Mar, Not-Taking affected area Externally Twice a day Lipitor 10 MG 1 tablet Orally Once a Active day for 90 days MetFORMIN HCl ER 500 MG 2 tablets with meal Active Orally twice a day for 90 days Lisinopril-Hydrochloroth 1 tablet Orally Once a Active iazide 20-12.5 MG day for 90 Levothyroxine Sodium 100 1 tablet on an empty Active MCG stomach in the morning Orally Once a day for 90 days Ondansetron HCl 4 MG 1 tablet Orally BID Active PRN Nausea GlipiZIDE ER 5 MG 1 tablet with food Active Orally Once a day for 90 days PROCEDURES No Information RESULTS No Results REASON FOR VISIT Blood pressure and referral MEDICAL (GENERAL) HISTORY Type Description Date Surgical History thyroid 2006 Goals Section No Information Health Concerns No Information MEDICAL EQUIPMENT No Information MENTAL STATUS No Information FUNCTIONAL STATUS No Information ASSESSMENTS No Information PLAN OF TREATMENT Medication Medication Name Sig Start Date Stop Date Omeprazole 40 MG 1 capsule 30 minutes before morning meal Orally Once a day for 90 Levothyroxine Sodium 100 MCG 1 tablet on an empty stomach in the morning Orally Once a day for 90 days Ondansetron HCl 4 MG 1 tablet Orally BID PRN Nausea Lisinopril-Hydrochlorothiazide 1 tablet Orally Once a day 20-12.5 MG for 90 GlipiZIDE ER 5 MG 1 tablet with food Orally Once a day for 90 days Lipitor 10 MG 1 tablet Orally Once a day for 90 days Prilosec OTC 20 MG 1 tablet Orally Once a day MetFORMIN HCl ER 500 MG 2 tablets with meal Orally twice a day for 90 days Next Appt Details Provider Name:Mike Zamudio, 2020-08-19 03:50:00 PM, [address], [address], [place], [address], Insurance Providers Payer Name Payer Payer Insured Patient Coverage Coverage End Address Phone Name Relationship to Start Date Robby e Insured [employer] [phone] Sara Hinojosa [id number] [place] Replace [id number]
--- OUTSIDE RECORDS SUMMARY | 2020-09-07 10:38 | XMS REPORT ---
:1950 Author Organization [facility] Address [address] [place], [address] [place] [address] Care Team Providers Name Role Phone Zamudio Unavailable [phone] PROBLEMS Type Condition ICD9-CM QMB95-ML Onset Condition SNOMED Code Notes Code Code Dates Status Problem Essential I10 Active 08286670 hypertension Problem History of diabetes Z86.39 Active 745322578 mellitus Problem Gastroesophageal K21.9 Active 772017727 reflux disease without esophagitis Problem Acquired E03.9 Active 547549430 hypothyroidism Problem Encounter for Z01.419 Active 711220998 gynecological examination without abnormal finding Problem Screening for colon Z12.11 Active 192583243 cancer Problem Diabetes 1.5, 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 709488033 managed as type 2 Problem Mixed E78.2 Active 243909121 hyperlipidemia Problem BMI 32.0-32.9,adult Z68.32 Active 383745095 Problem Constipation, K59.00 Active 35086604 unspecified constipation type Problem Primary M19.91 Active 678000097 osteoarthritis, unspecified site Problem 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 831595492 osteoarthritis involving multiple joints Problem Type 2 diabetes E11.65 Active 69223019 mellitus with hyperglycemia, without long-term current use of insulin Problem Body mass index Z68.32 Active 513334611 (BMI) 32.0-32.9, adult Problem 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 104563159 to excess calories ALLERGIES No Known Allergies ENCOUNTERS from 1950 to 2020-08-04 Encounter Location Date Provider Diagnosis [facility] [address] Jul, [facility] Zamudio Type [address], [place] hyper glycemia, [place] [address] without long-t erm current use of insulin E11.65 ; Acquir ed hypothyroidism E03.9 ; Gastroesophagea [...] No Information VITAL SIGNS Height 65 in Jul, Weight 191.4 lbs Jul, Temperature 97.2 degrees Fahrenheit Jul, BMI 31.85 kg/m2 Jul, Oximetry 97 % Jul, Respiratory Rate 18 /min Jul, Blood pressure systolic 158 mm Hg Jul, Blood pressure diastolic 70 mm Hg Jul, MEDICATIONS Medication SIG (Take, Route, Notes Start [...] tablet Orally Once a Active day Nystatin 766225 UNIT/GM 1 application to Mar, Not-Taking affected [...] Information RESULTS No Results REASON FOR VISIT Follow up MEDICAL (GENERAL) HISTORY Type Description Date Surgical History thyroid 2006 Goals Section No Information Health Concerns No Information MEDICAL EQUIPMENT No Information MENTAL STATUS No Information FUNCTIONAL STATUS No Information ASSESSMENTS Encounter Date Diagnosis Assessment Treatment Notes Treatment Notes Clinical Notes Jul, Type 2 diabetes ON Metofmrin BID. Will ma ke mellitus with Stop Tradjenta 5 mg medicat ion hyperglycemia, and Jardiance 10 mg. titra tion. without long-term Start glipizide 5 Enco uraged on current use of mg extremely once dietary insulin (ICD-10 - daily in the changes. E11.65) morning. Discussed Patient side effect panel declined a ny extensively. injections at Monitor blood sugar. this ti me. Education given., Diabetes Education Diabetes is a [...] may need to be adjusted and/or added. Jul, Acquired . Refill given. Side hypothyroidism effect discussed. (ICD-10 - E03.9) Labs ordered. Education given. , Hypothyroidism Education: [...] doctor if you have any abnormal symptoms. Jul, Gastroesophageal . Discussed reflux disease long-term impact of without esophagitis PPI usage. , We have (ICD-10 - K21.9) discussed the pathophysiology of reflux disease and we discussed lifestyle modifications to avoid reflux that include elevation head of the bed, avoid alcohol, avoid caffeine, avoid maintenance, avoid tight clothing, avoid eating within 3-4 hours before bedtime, and avoiding smoking. Jul, Essential Needs to hypertension (ICD-10 lisinopril/chlorothi - I10) azide 20/12.5 mg once daily and titrate as tolerated. Close follow-up in 2 weeks. Side effect discussed. , DASH Diet discussed. [...] go to the ER immediately to address. Jul, Primary . Stable with osteoarthritis juzi-lug-drifngt involving multiple medication. joints (ICD-10 - Education given. M89.49) Discussed supportive measures for symptomatic relie Jul, Other obesity due to excess calories (ICD-10 - E66.09) Jul, Body mass index (BMI) Counseling given 32.0-32.9, adult (ICD-10 - Z68.32) Jul, Mixed hyperlipidemia Start Lipitor 10 mg (ICD-10 - E78.2) and titrate as tolerated. Side effect panel [...] you have questions, talk to your doctor. Jul, Nausea alone (ICD-10 Differential - R11.0) diagnosis extensively patient. Education given. Intermittent ongoing for the past several years. Concern for anxiety and nervousness. Will provide demonstration to use seldomly. Side effect panel discussed extensively. Jul, Allergic . Discussed conjunctivitis of supportive measures both eyes (ICD-10 - for symptomatic H10.13) relief. Education given Jul, Other -- Medication reviewed and updated. -- Dietary and Lifestyle modifications addressed regarding diet, exercise and weight management. -- Treatment options, risks and benefits, alternate treatment options, side effects reviewed in detail with patient. -- Shared decision making was utilized with patient and verbal informed consent was obtained in the end. -- Advised on signs/symptoms to monitor and when to call clinic and/or visit the nearest ER. Patient verbalized understanding and agreeable with plan. PLAN OF TREATMENT Medication Medication Name Sig [...] Orally twice a day for 90 days Treatment Notes Assessment Notes Clinical Notes Type [...] may need to be adjusted and/or added. Acquired hypothyroidism . Refill given. Side effect [...] before bedtime, and avoiding smoking. Essential hypertension Needs to lisinopril/chlorothiazide 20/12.5 mg once daily and titrate as tolerated. Close follow-up in 2 weeks. Side effect discussed. , DASH Diet discussed. [...] osteoarthritis . Stable with involving multiple joints owlr-tje-tizbfym medication. Education given. Discussed supportive measures for [...] Order Date Lipid Panel With LDL/HDL Ratio 2020-08-04 Thyroid Panel With TSH 2020-08-04 Microalbumin/Creat Ratio, Random Ur 2020-08-04 Hemoglobin A1c 2020-08-04 Comp. Metabolic Panel (14) (CMP) 2020-08-04 CBC With Differential/Platelet 2020-08-04 Next Appt Details 2 Weeks HTN Reason: Provider Name:Mike Tracee Zamudio, 2020-08-19 03:50:00 PM, [address], [address], [place], [address], Insurance Providers Payer Name Payer Payer Insured Patient Coverage Coverage End Address Phone Name Relationship to Start Date Robby e Insured [employer] [phone] Sara Hinojosa [facility] [id number] [id number] a [place] Replace [phone]
--- OUTSIDE RECORDS SUMMARY | 2020-09-07 10:38 | XMS REPORT | Continuity of Care Document ---
:1950 Author Organization [facility] t Address [address] [place] [address] Care Team Providers Name Role Phone Lab, [...] OTC OTC Zamudio [facility] Levothyroxi Levothyroxi Yes Mike [address] [facility] ne Sodium ne Sodium Zamudio on an Melissa es - empty Memoria stomach in l the Outpati morning ent Clinics Procedures This patient has no known procedures. Encounters Start End Encounter Admission Attending Care Care Encounter Source Date/Time Date/Time Type Type Clinicians Facility Department ID 2020-08-26 2020-08-26 [facility] [id number] 2020-08-04 2020-08-04 [facility] [id number] [facility] 2020-07-30 2020-07-30 [facility] [id number] [facility] 2020-07-01 2020-07-01 [facility] [id number] [facility] 2020-06-02 2020-06-02 [facility] [id number] [facility] 2020-05-29 2020-05-29 [facility] [id number] [facility] 2020-05-28 2020-05-28 [facility] [id number] [facility] 2020-05-27 2020-05-27 [facility] [id number] [facility] 2020-04-22 2020-04-22 [facility] [id number] [address] 11:39:00 11:39:00 [place] [employer] [facility] - Drive [facility] Clin[facility] 2020-04-15 2020-04-15 [facility] [id number] 15:20:00 15:20:00 [place] [employer] [facility] - Drive [facility] Out[facility] Clin[facility] 2020-04-07 2020-04-07 [facility] [id number] 07:48:00 07:48:00 [place] [employer] - [employer] - innovate | mentor | invest [facility] Outpat[facility] ent Clinics 2020-04-03 2020-04-03 Laboratory Lab, [facility] [id number] 15:59:39 16:19:39 Only [facility] [id number] [place] [id number] Professio [phone] [address]al [address] 2020-04-03 2020-04-03 [facility] [id number] 11:15:00 11:15:00 [place] [employer] - [employer] - innovate | mentor | invest [facility] Outpati ent Clinics 2020-03-07 2020-03-07 [facility] [id number] 08:15:00 08:15:00 t [place] - [employer] - innovate | mentor | invest [facility] Medicine Outpati ent Clinics 2020-02-27 2020-02-27 [facility] [id number] 11:04:00 11:04:00 [place] [employer] [facility] - Drive [facility] Medicine Outpati ent Clinics 2020-02-25 2020-02-25 [facility] [id number] 10[facility]39:00 10:39:00 [place] [employer] - [employer] - innovate | mentor | invest [facility] Outpati ent Clinics 2020-01-30 2020-01-30 [facility] [id number] 15:45:00 15:45:00 [place] [employer] [facility] - Drive [facility] Medicine Outpati ent Clinics 2020-01-30 2020-01-30 [facility] [id number] 15:45:00 15:45:00 [place] [employer] s - Drive [facility] Medicine l Medicine Outpati ent Clinics 2020-01-09 2020-01-09 [facility] [id number] 11:17:00 11:17:00 [place] [employer] - Drive [facility] Medicine Outpati ent Clinics 2019-11-27 2019-11-27 [facility] [id number] 14:00:00 14:00:00 [place] [employer] - [employer] - innovate | mentor | invest [facility] Medicine l Medicine Outpati ent Clinics 2019-05-22 2019-05-22 [facility] [id number] 16:00:00 16:00:00 [facility] Medicine Outpati ent Clinics 2019-05-08 2019-05-08 [facility] [id number] 16:15:00 16:15:00 t [facility] Medicine Outpati ent Clinics 2019-03-20 2019-03-20 [facility] [id number] 08:20:00 08:20:00 t [facility] Medicine Outpati ent Clinics 2019-02-13 2019-02-13 [facility] [id number] [facility] 16:15:00 16:15:00 t [facility] Medicine Outpati ent Clinics 2018-11-24 2018-11-24 [facility] [id number] [facility] 16:23:00 16:23:00 t [facility] Medicine Outpati ent Clinics 2018-11-13 2018-11-13 [facility] [id number] [facility] 16:30:00 16:30:00 t [facility] Medicine Outpati ent Clinics 2018-09-28 2018-09-28 [facility] [id number] [facility] 15:00:00 15:00:00 [facility] Medicine Outpati ent Clinics Results This patient has no known results."
--- OUTSIDE RECORDS SUMMARY | 2020-09-07 10:38 | XMS REPORT ---
:1950 Author Organization [facility] Address [address] [place], 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 Problem 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 625554530 osteoarthritis involving multiple joints Problem Constipation, K59.00 Active 13300770 unspecified constipation type Problem Encounter for Z01.419 Active 828963065 gynecological examination without abnormal finding Problem Current moderate F32.1 Active 85367275 episode of major depressive disorder without prior episode Problem BMI 32.0-32.9,adult Z68.32 Active 200084316 Problem Type 2 diabetes E11.65 Active 75895637 mellitus with hyperglycemia, without long-term current use of insulin Problem Body mass index Z68.32 Active 333627484 (BMI) 32.0-32.9, adult Problem 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 877384240 to excess calories Problem Mixed E78.2 Active 842326247 hyperlipidemia ALLERGIES No Known Allergies ENCOUNTERS from 1950 to 2020-08-26 Encounter Location Date Provider Diagnosis [facility] [address] [place], [facility] [address] [place], [address] ; [place] [address] episode of kiko or depressive diso rder without prior e pisode F32.1 ; Type 2 diabetes mellitus with hyperglycemia, without long-term curre nt use of insulin E11.65 ; Gastroesophagea l reflux disease without esophagitis K21 .9 ; Acquired hypoth yroidism E03.9 ; Primary osteoarthritis involving multiple joints M89.49 [...] History Observation Description Sex Assigned At Unknown PHQ9 Question Answer Notes Little interest or pleasure in doing things More than half t he days Feeling down, depressed, or hopeless More than half the days Trouble falling or staying asleep or sleeping too much More than half the days Feeling tired or having little energy Several days Poor appetite or overeating More than half the days Feeling bad about yourself, or that you are a failure, Sever al days or have let yourself or your family down Trouble concentrating on things, such as reading the Not at all newspaper or watching television Moving or speaking so slowly that other people could Not at all have noticed; or the opposite, being so fidgety or restless that you have been moving around a lot more than usual Total Score 10 Interpretation Moderate Depression Thoughts that you would be better off or of Not at all hurting yourself in some way Alcohol Screen Question Answer Notes Did you have a drink containing alcohol in the past year? No Points 0 Interpretation Negative Tobacco Use/Smoking Question Answer Notes Are you a never smoker REASON FOR REFERRAL No Information VITAL SIGNS Height 65 in Aug, Weight 189.6 lbs Aug, Temperature 97.2 degrees Fahrenheit Aug, BMI 31.55 kg/m2 Aug, Oximetry 97 % Aug, Respiratory Rate 18 /min Aug, Blood pressure systolic 137 mm Hg Aug, Blood pressure diastolic 61 mm Hg Aug, MEDICATIONS Medication SIG (Take, Route, Notes Start Date End Date Status Frequency, Duration) Levothyroxine Sodium 100 1 tablet on an empty Active MCG stomach in the morning Orally Once a day for 90 days Nystatin 096510 UNIT/GM 1 application to Mar, Not-Taking affected area Externally Twice a day Ondansetron HCl 4 MG 1 tablet Orally BID Active PRN Nausea Lipitor 10 MG 1 tablet Orally Once a Active day for 90 days Lisinopril 10 MG 1 tablet Orally Once a Not-Taking day for 90 days MetFORMIN HCl ER 500 MG 2 tablets with meal Active Orally twice a day for 90 days Prilosec OTC 20 MG 1 tablet Orally Once a Active day GlipiZIDE ER 5 MG 1 tablet with food Active Orally Once a day for 90 days Zoloft 50 MG Take 1/2 tab QD x 1 Aug, A ctive week then take 1 tab QD Orally Once a day for 30 day(s) Losartan Potassium-HCTZ 1 tablet Orally Once a Active 100-12.5 MG day for 90 Omeprazole 40 MG 1 capsule 30 minutes Active before morning meal Orally Once a day for 30 day(s) Restasis 0.05 % 1 drop into affected December, Active eye as needed Ophthalmic Twice a day for 30 days PROCEDURES No Information RESULTS No Results REASON FOR VISIT Follow up on blood pressure MEDICAL (GENERAL) HISTORY Type Description Date Surgical History thyroid 2006 Goals Section No Information Health Concerns No Information MEDICAL EQUIPMENT No Information MENTAL STATUS No Information FUNCTIONAL STATUS No Information ASSESSMENTS Encounter Date Diagnosis Assessment Treatment Notes Treatment Notes Clinical Notes Aug, Essential Wanting to change. hypertension (ICD-10 Changed to losartan - I10) 100/12.5 mg once daily. Blood pressure log reviewed.. Close follow-up in 3 weeks. Side effect discussed. , DASH Diet [...] go to the ER immediately to address. Aug, Current moderate Actively listented. episode of major Support given. depressive disorder Discussed treatment without prior episode options. Medication (ICD-10 - F32.1) + Counseling/Therapy. Infomation provided for psychologist for therapy options, encouraged to call to make an appt. START Zoloft 50 mg and titrate as tolerated. Instructions and side effects discussed. Close f/u in 3 week., -- Depression Education: Depression is a brain disease that makes you sad, but it is different than normal sadness. Depressed people feel down most of the time for at least 2 weeks. They also have at least one of these 2 symptoms: 1. They no longer enjoy or care about doing the things they used to like to do. 2. They feel sad, down, hopeless, or cranky most of the day, almost every day. It can also make you: lose or gain weight; sleep too much or too little; fell tired or like you have no energy; feel guilty or like you are worth nothing; forget things or feel confused; and think about or suicide. Medication and/or seeing a counselor (such as a psychiatrist, psychologist, nurse or social media job titles) may be necessary to treat depression. Both treatments take time to work. If you ever feel like you might hurt yourself or some else, then call your doctor or call 911 or go to the ER. Aug, Type 2 diabetes ON Metofmrin BID. Will [...] may need to be adjusted and/or added. Aug, Gastroesophageal . Discussed reflux disease long-term impact of without esophagitis PPI usage. , We have (ICD-10 - K21.9) discussed the pathophysiology of reflux disease and we discussed lifestyle modifications to avoid reflux that include elevation head of the bed, avoid alcohol, avoid caffeine, avoid maintenance, avoid tight clothing, avoid eating within 3-4 hours before bedtime, and avoiding smoking. Aug, Acquired . Refill given. Side hypothyroidism effect [...] doctor if you have any abnormal symptoms. Aug, Primary . Stable with osteoarthritis [id number] involving multiple medication. joints (ICD-10 - Education given. M89.49) Discussed supportive measures for symptomatic relie Aug, Other obesity due to excess calories (ICD-10 - E66.09) Aug, Body mass index (BMI) Counseling given 32.0-32.9, adult (ICD-10 - Z68.32) Aug, Mixed hyperlipidemia Start Lipitor 10 mg (ICD-10 [...] you have questions, talk to your doctor. Aug, Nausea alone (ICD-10 Differential - R11.0) diagnosis extensively patient. Education given. Intermittent ongoing for the past several years. Concern for anxiety and nervousness. Will provide demonstration to use seldomly. Side effect panel discussed extensively. Aug, Allergic . Discussed conjunctivitis of supportive measures both eyes (ICD-10 - for symptomatic H10.13) relief. Education given Aug, Other -- Medication reviewed and updated. -- [...] Medication Name Sig Start Date Stop Date Levothyroxine Sodium 100 MCG 1 tablet on an empty stomach in the morning Orally Once a day for 90 days Losartan Potassium-HCTZ 100-12.5 1 tablet Orally Once a day MG for 90 Omeprazole 40 MG 1 capsule 30 minutes before morning meal Orally Once a day for 30 day(s) GlipiZIDE ER 5 MG 1 tablet with food Orally Once a day for 90 days Zoloft 50 MG Take 1/2 tab QD x 1 week Aug, then take 1 tab QD Orally Once a day for 30 day(s) Prilosec OTC 20 MG 1 tablet Orally Once a day MetFORMIN HCl ER 500 MG 2 tablets with meal Orally twice a day for 90 days Ondansetron HCl 4 MG 1 tablet Orally BID PRN Nausea Lipitor 10 MG 1 tablet Orally Once a day for 90 days Treatment Notes Assessment Notes Clinical Notes Essential hypertension Wanting to change. Changed to losartan 100/12.5 mg once daily. Blood pressure log reviewed.. Close follow-up in 3 weeks. Side effect discussed. , DASH Diet [...] go to the ER immediately to address. Current moderate episode of Actively listented. Support major depressive disorder given. Discussed treatment without prior episode options. Medication + Counseling/Therapy. Infomation provided for psychologist for therapy options, encouraged to call to make an appt. START Zoloft 50 mg and titrate as tolerated. Instructions and side effects discussed. Close f/u in 3 week., -- Depression Education: Depression is a brain disease that makes you sad, but it is different than normal sadness. Depressed people feel down most of the time for at least 2 weeks. They also have at least one of these 2 symptoms: 1. They no longer enjoy or care about doing the things they used to like to do. 2. They feel sad, down, hopeless, or cranky most of the day, almost every day. It can also make you: lose or gain weight; sleep too much or too little; fell tired or like you have no energy; feel guilty or like you are worth nothing; forget things or feel confused; and think about or suicide. Medication and/or seeing a counselor (such as a psychiatrist, psychologist, nurse or social media job titles) may be necessary to treat depression. Both treatments take time to work. If you ever feel like you might hurt yourself or some else, then call your doctor or call 911 or go to the ER. Type 2 diabetes mellitus with ON Metofmrin [...] may need to be adjusted and/or added. Gastroesophageal reflux disease . Discussed long-term impact without esophagitis of PPI usage. , We have discussed the pathophysiology of reflux disease and we discussed lifestyle modifications to avoid reflux that include elevation head of the bed, avoid alcohol, avoid caffeine, avoid maintenance, avoid tight clothing, avoid eating within 3-4 hours before bedtime, and avoiding smoking. Acquired hypothyroidism . Refill given. Side effect [...] doctor if you have any abnormal symptoms. Primary osteoarthritis . Stable with involving multiple joints [id number] medication. Education given. Discussed supportive measures for [...] eyes measures for symptomatic relief. Education given Next Appt Details 3 weeks HTN/Depression Reason: Provider Name:Mike Tracee Zamudio, 2020-09-16 04:00:00 PM, [address] [place], [address], [place], [address], Insurance Providers Payer Name Payer Payer Insured Patient Coverage Coverage End Address Phone Name Relationship to Start Date Robby e Insured [employer] [phone] [place] [id number] [id number] [place] Replace [id number]
[2020-09-07 11:11] LABS: Absolute Lymphocytes (CBC) 2.2 K/uL (0.7-4.9); Basophils % 0.4 % (0-1.3); Lymphocytes % 29.2 % (15.3-44.8); MPV 8.3 fL (7.6-11.3); RBC Red Blood Cell Count 4.03 M/uL (3.86-4.86)
[2020-09-07] MEDS ORDERED: lisinopriL 10 MG TAB ONE (11:11)
--- NOTE | 2020-09-07 11:19 | RAD REPORT ---
EXAM DESCRIPTION: RAD - Chest Single View - 09/07/2020 11:03 am CLINICAL HISTORY: CHEST PAIN COMPARISON: Portable July 31, 2020 TECHNIQUE: AP portable chest image was obtained 09/07/2020 11:03 am . FINDINGS: Lungs are clear. Heart and vasculature are normal. No measurable pleural effusion and no p neumothorax. No acute bony abnormality seen. No acute aortic findings suspected. IMPRESSION: No acute cardiopulmonary process. No significant change from comparison study.
[2020-09-07 11:45] LABS: BUN Blood Urea Nitrogen 14 mg/dL (7-18); Bicarbonate 24 mmol/L (21-32); Glucose Level 199 mg/dL (74-106); Magnesium 2.4 mg/dL (1.8-2.4); NT PRO-BNP 40 pg/mL (<125); Potassium 3.7 mmol/L (3.5-5.1); Sodium Level 140 mmol/L (136-145); Troponin (Emerg Dept Use Only) < 0.02 ng/mL (0.0-0.045)
[2020-09-07] MEDS ORDERED: IBUPROFEN 400 MG TAB ONE (12:02)
--- NOTE | 2020-09-07 12:03 | ER ---
Nurse's Notes [facility] Name: Katya Hinojosa Age: 70 yrs Sex: Female : 1950 Arrival Date: 09/07/2020 Time: 10:37 Bed 16 Private MD: Diagnosis: Chest pain, unspecified;Hypertension Presentation: 09/07 10:45 Coronavirus screen: At this time, the client does not indicate any symptoms associated iw with coronavirus-19. Ebola Screen: Patient negative for fever greater than or equal to 101.5 degrees Fahrenheit, and additional compatible Ebola Virus Disease symptoms Patient denies exposure to infectious person. Patient denies travel to an Ebola-affected area in the 21 days before illness onset. No symptoms or risks identified at this time. Initial Sepsis Screen: Does the patient meet any 2 criteria? No. Patient's initial sepsis screen is negative. Does the patient have a suspected source of infection? No. Patient's initial sepsis screen is negative. Risk Assessment: Do you want to hurt yourself or someone else? Patient reports no desire to harm self or others. 10:45 Method Of Arrival: Ambulatory iw 10:45 Acuity: AMAYA 3 iw 10:47 Chief complaint: Patient states: BP has been high since yesterday, having chest iw tightness also, has now resolved. Onset of symptoms was September 06, 2020. Historical: - Allergies: 10:48 No Known Allergies; iw - Home Meds: 10:45 levothyroxine 100 mcg tab 1 tab once daily [Active]; lisinopril 10 mg Oral tab 1 tab iw once daily [Active]; Metformin Oral [Active]; - PMHx: 10:45 Diabetes - NIDDM; High Cholesterol; Hypertension; Hypothyroidism; iw - PSHx: 10:45 Thyroidectomy; iw - Immunization history:: Flu vaccine is not up to date. - Family history:: not pertinent. - Social history:: Smoking status: Patient denies any tobacco usage or history of. - Hospitalizations: : No recent hospitalization is reported. Screenin:42 Abuse screen: Denies threats or abuse. Denies injuries from another. Nutritional ca1 screening: No deficits noted. Tuberculosis screening: No symptoms or risk factors identified. Fall Risk IV access (20 points). Assessment: 10:42 General: Appears in no apparent distress. comfortable, Behavior is calm, cooperative, ca1 appropriate for age. Pain: Complains of pain in headache Pain does not radiate. Pain began a month ago Is intermittent. Neuro: Level of Consciousness is awake, alert, obeys commands, Oriented to person, place, time, situation, Reports headache since a month ago. Cardiovascular: Denies chest pain, at this time Heart tones S1 S2 present Capillary refill < 3 seconds Patient's skin is warm and dry. Rhythm is sinus rhythm. Respiratory: Airway is patent Respiratory effort is even, unlabored, Respiratory pattern is regular, symmetrical. GI: Abdomen is round non-distended, Bowel sounds present X 4 quads. Abd is soft and non tender X 4 quads. : No signs and/or symptoms were reported regarding the genitourinary system. EENT: No signs and/or symptoms were reported regarding the EENT system. Derm: Skin is intact, is healthy with good turgor, Skin is pink, warm \\T\\ dry. Musculoskeletal: Circulation, motion, and sensation intact. Capillary refill < 3 seconds. 11:56 Reassessment: Patient appears in no apparent distress at this time. Patient and/or ca1 family updated on plan of care and expected duration. Pain level reassessed. Patient is alert, oriented x 3, equal unlabored respirations, skin warm/dry/pink. 12:38 Reassessment: Patient appears in no apparent distress at this time. Patient is alert, ca1 oriented x 3, equal unlabored respirations, skin warm/dry/pink. Vital Signs: 10:46 BP 157 / 79; Pulse 88; Resp 16; Pulse Ox 98% on R/A; iw 11:56 BP 124 / 67; Pulse 68; Resp 16 S; Pulse Ox 99% on R/A; ca1 12:38 BP 131 / 71; Pulse 71; Resp 16 S; Pulse Ox 98% on R/A; ca1 ED Course: 10:37 Patient arrived in ED. as 10:39 Simon Chen MD is Attending Physician. rn 10:42 Patient has correct armband on for positive identification. Placed in gown. Bed in low ca1 position. Call light in reach. Side rails up X 1. surveillance monitor on. Pulse ox on. NIBP on. Warm blanket given. 10:46 Triage completed. iw 10:47 Arm band placed on. iw 10:54 Jenn Amaral, RN is Primary Nurse. ca1 11:03 XRAY Chest (1 view) In Process Unspecified. EDMS 11:04 Initial lab(s) drawn, by me, sent to lab. Inserted saline lock: 20 gauge in left ca1 antecubital area, using aseptic technique. Blood collected. Patient maintains SpO2 saturation greater than 95% on room air. 11:07 COVID-19 Sent. ca1 12:39 No provider procedures requiring assistance completed. IV discontinued, intact, ca1 bleeding controlled, No redness/swelling at site. Pressure dressing applied. Administered Medications: 11:16 Not Given (Patient Refused; Pt states,"my doctor changed that to something else. I ca1 don't know the name but I will take it when I get home"): Lisinopril 10 mg PO once 11:47 Drug: Motrin 800 mg Route: PO; ca1 12:30 Follow up: Response: No adverse reaction; Pain is decreased ca1 Outcome: 12:03 Discharge ordered by MD. rn 12:39 Discharged to home ambulatory. ca1 12:39 Condition: stable 12:39 Discharge instructions given to patient, Instructed on discharge instructions, follow up and referral plans. Demonstrated understanding of instructions, follow-up care. 12:39 Patient left the ED. ca1 Addendum: 09/11/2020 07:29 Addendum: COVID-19 Result: Negative result given to RN to notify pt. Unable to leave a a5 voice mail due to the number provided was either not a working number, the voice mail has not been set up, or the voice mailbox is full.. Signatures: Dispatcher [employer] Elena Sotelo Irene, RN RN iw Nieto, Roman, MD MD rn Calderon, Audri, RN RN aa5 Jenn Amaral RN RN ca1 Corrections: (The following items were deleted from the chart) 09/07 11:32 10:42 Cardiovascular: Heart tones S1 S2 present Capillary refill < 3 seconds Patient's ca1 skin is warm and dry. Rhythm is sinus rhythm ca1
--- NOTE | 2020-09-07 12:04 | EDPHYS ---
Physician Documentation [facility] Name: Katya Hinojosa Age: 70 yrs Sex: Female : 1950 Arrival Date: 09/07/2020 Time: 10:37 Bed 16 Private MD: ED Physician Simon Chen HPI: 09/07 10:49 This 70 yrs old Female presents to ER via Ambulatory with complaints of Chest rn Pain, Headache, Blood Pressure Problem. 10:49 The patient or guardian reports chest pain that is located primarily in the substernal rn area. Onset: last night. The pain does not radiate. Associated signs and symptoms: Pertinent positives: None. Pertinent negatives: abdominal pain, cough, diaphoresis, dizziness, headache, lower extremity pain, lower extremity swelling, lightheadedness, near syncope, palpitations, shortness of breath, syncope, vomiting. The chest pain is described as a pressure. Duration: The patient or guardian reports a single episode, that is now resolved. Modifying factors: The symptoms are alleviated by nothing. the symptoms are aggravated by nothing. Severity of pain: At its worst the pain was very mild in the emergency department the pain has resolved. The patient has not experienced similar symptoms in the past. The patient has not recently seen a physician. Reports high blood pressure since last night, kept checking it and continued to be elevated, then felt mild chest tightness, non-radiating, no nausea or sob. Currently resolved. Did not take her BP medication this morning. No hx of [place]. No cough or sob. . Historical: - Allergies: 10:48 No Known Allergies; iw - Home Meds: 10:45 levothyroxine 100 mcg tab 1 tab once daily [Active]; lisinopril 10 mg Oral tab 1 tab iw once daily [Active]; Metformin Oral [Active]; - PMHx: 10:45 Diabetes - NIDDM; High Cholesterol; Hypertension; Hypothyroidism; iw - PSHx: 10:45 Thyroidectomy; iw - Immunization history:: Flu vaccine is not up to date. - Family history:: not pertinent. - Social history:: Smoking status: Patient denies any tobacco usage or history of. - Hospitalizations: : No recent hospitalization is reported. ROS: 10:49 Constitutional: Negative for fever, chills, and weight loss, Eyes: Negative for injury, rn pain, redness, and discharge, Neck: Negative for injury, pain, and swelling, Cardiovascular: Negative for palpitations, and edema, Respiratory: Negative for shortness of breath, cough, wheezing, and pleuritic chest pain, Abdomen/GI: Negative for abdominal pain, nausea, vomiting, diarrhea, and constipation, Back: Negative for injury and pain, MS/Extremity: Negative for injury and deformity, Skin: Negative for injury, rash, and discoloration, Neuro: Negative for weakness, numbness, tingling, and seizure Exam: 10:49 Constitutional: This is a well developed, well nourished patient who is awake, alert, rn and in no acute distress. Head/Face: Normocephalic, atraumatic. Eyes: Pupils equal round and reactive to light, extra-ocular motions intact. Lids and lashes normal. Conjunctiva and sclera are non-icteric and not injected. Cornea within normal limits. Periorbital areas with no swelling, redness, or edema. Neck: Trachea midline, no masses palpated, and no cervical lymphadenopathy. Supple, full range of motion without nuchal rigidity, or vertebral point tenderness. No Meningismus. Chest/axilla: Normal chest wall appearance and motion. Nontender with no deformity. No lesions are appreciated. Cardiovascular: Regular rate and rhythm. No pulse deficits. Respiratory: No increased work of breathing, no retractions or nasal flaring. Abdomen/GI: soft, non-tender Skin: Warm, dry MS/ Extremity: Pulses equal, no cyanosis. Neurovascular intact. Full, normal range of motion. Equal circumference. Neuro: Awake and alert, GCS 15, oriented to person, place, time, and situation. Cranial nerves II-XII grossly intact. Motor strength 5/5 in all extremities. Sensory grossly intact. Cerebellar exam normal. Normal gait. 11:22 ECG was reviewed by the Attending Physician. rn Vital Signs: 10:46 BP 157 / 79; Pulse 88; Resp 16; Pulse Ox 98% on R/A; iw 11:56 BP 124 / 67; Pulse 68; Resp 16 S; Pulse Ox 99% on R/A; ca1 12:38 BP 131 / 71; Pulse 71; Resp 16 S; Pulse Ox 98% on R/A; ca1 MDM: 10:39 Patient medically screened. rn 12:02 ED course: Pt refused lisinopril, BP has improved on its own to 124/67, neg trop and rn cxr, no ischemia on ECG, chest pain is resolved, and states was constant since last night. Will dc home with return precautions and pcp/cardiology f/u.. 09/07 10:48 Order name: Basic Metabolic Panel rn 09/07 10:48 Order name: CBC with Diff; Complete Time: 11: rn 09/07 10:48 Order name: Magnesium; Complete Time: 12: rn 09/07 10:48 Order name: NT PRO-BNP; Complete Time: 12: rn 09/07 10:48 Order name: Troponin (emerg Dept Use Only); Complete Time: 12: rn 09/07 10:48 Order name: COVID-19 rn 09/07 10:48 Order name: XRAY Chest (1 view); Complete Time: 11: rn 09/07 10:48 Order name: EKG; Complete Time: 10:49 rn 09/07 10:48 Order name: Cardiac monitoring; Complete Time: : rn 09/07 10:48 Order name: EKG - Nurse/Tech; Complete Time: : rn 09/07 10:48 Order name: IV Saline Lock; Complete Time: : rn 09/07 10:49 Order name: Basic Metabolic Panel; Complete Time: 12: EDCO 09/07 10:48 Order name: Labs collected and sent; Complete Time: : rn 09/07 10:48 Order name: O2 Per Protocol; Complete Time: : rn 09/07 10:48 Order name: O2 Sat Monitoring; Complete Time: 11: rn EC: Rate is 77 beats/min. Rhythm is regular. QRS [place] is Normal. ND interval is normal. QRS rn interval is normal. QT interval is normal. No Q waves. T waves are Flattened in leads V5, V6. No ST changes noted. Clinical impression: NSR w/ Non-specific ST/T Changes. Interpreted by me. Reviewed by me. Administered Medications: 11:16 Not Given (Patient Refused; Pt states,"my doctor changed that to something else. I ca1 don't know the name but I will take it when I get home"): Lisinopril 10 mg PO once 11:47 Drug: Motrin 800 mg Route: PO; ca1 12:30 Follow up: Response: No adverse reaction; Pain is decreased ca1 Disposition: 09/07/20 12:03 Discharged to Home. Impression: Chest pain, unspecified, Hypertension. - Condition is Stable. - Discharge Instructions: Nonspecific Chest Pain, Hypertension. - Medication Reconciliation Form, Thank You Letter, Antibiotic Education, Prescription Opioid Use form. - Follow up: Private Physician; When: As needed; Reason: Recheck today's complaints, Re-evaluation by your physician. - Problem is new. - Symptoms have improved. Signatures: Dispatcher [employer] EDSoraya Michael RN RN iw Simon Chen MD MD rn Acob, SEKOU Barajas RN ca1 Corrections: (The following items were deleted from the chart) 12:39 12:03 09/07/2020 12:03 Discharged to Home. Impression: Chest pain, unspecified; ca1 Hypertension. Condition is Stable. Forms are Medication Reconciliation Form, Thank You Letter, Antibiotic Education, Prescription Opioid Use. Follow up: Private Physician; When: As needed; Reason: Recheck today's complaints, Re-evaluation by your physician. Problem is new. Symptoms have improved. rn
[2020-09-07 12:50] VITALS: BP 131/71; O2SAT 98
--- NOTE | 2020-09-08 07:32 | EKG ---
Test Date: 2020-09-07 Test Time: 11:18:54 Manager Nursing: IMELDA MEASUREMENT RESULTS: Intervals: Rate: 77 TX: 168 QRSD: 80 QT: 376 QTc: 425 [place]: P: 21 TX: 168 QRS: -15 T: 8 INTERPRETIVE STATEMENTS: Normal sinus rhythm Cannot rule out Anterior infarct, age undetermined Abnormal ECG Compared to ECG 07/31/2020 06:42:41 Myocardial infarct finding now present Sinus bradycardia no longer present Sinus arrhythmia no longer present Electronically Signed On 09-08-20 07:30:08 ELECTRODE [employer]NER [employer] FINISHER by Tahir White
== END 2020-09-07 12:39 | disposition home or self-care (01) ==
LOC: ER 10:35
DX: I10 Essential (primary) hypertension (principal); E11.9 Type 2 diabetes mellitus without complications; E03.9 Hypothyroidism, unspecified; E78.00 Pure hypercholesterolemia, unspecified; Z20.822 Contact with and (suspected) exposure to COVID-19
CPT/HCPCS: 93005; 85025; 80048; 36415; 83735; 84484; 83880; 71045; 99285; U0002

== ENCOUNTER 2020-12-25 06:29 | Day surgery (SDC) | payer OTHER ==
[2020-12-22 15:41] LABS: Absolute Lymphocytes (CBC) 2.6 K/uL (0.7-4.9); Basophils % 0.6 % (0-1.3); Hematocrit 37.4 % (36.0-45.0); Lymphocytes % 29.8 % (15.3-44.8); MPV 8.1 fL (7.6-11.3); RBC Red Blood Cell Count 3.89 M/uL (3.86-4.86)
[2020-12-22 15:58] LABS: BUN Blood Urea Nitrogen 18 mg/dL (7-18); Bicarbonate 28 mmol/L (21-32); Glucose Level 159 mg/dL (74-106); Potassium 3.6 mmol/L (3.5-5.1); Sodium Level 141 mmol/L (136-145)
[2020-12-22 16:06] LABS: Protime INR 0.91
--- NOTE | 2020-12-23 17:44 | EKG ---
Test Date: 2020-12-22 Test Time: 14:12:31 Route Delivery Service Driver: DANNY MEASUREMENT RESULTS: Intervals: Rate: 71 KS: 176 QRSD: 80 QT: 366 QTc: 397 [place]: P: 13 KS: 176 QRS: -21 T: 23 INTERPRETIVE STATEMENTS: Normal sinus rhythm Minimal voltage criteria for LVH, may be normal variant Cannot rule out Anterior infarct, age undetermined Abnormal ECG Compared to ECG 09/07/2020 11:18:54 Left ventricular hypertrophy now present Myocardial infarct finding still present Electronically Signed On 12-23-20 17:40:25 CDT by Tahir White
[2020-12-25] MEDS ORDERED: LIDOCAINE 1% 20 ML MDV ONE (07:01)
[2020-12-25] MEDS ORDERED: HEPA 1000U/500MLS 1,000 UNIT/500 ML BAG IV ONE (07:01)
[2020-12-25] MEDS ORDERED: NA CHLORIDE 0.9% 500 ML ONE (07:06)
[2020-12-25] MEDS ORDERED: MIDAZOLAM HCL 2 MG/2 ML INJ ONE ×2 (07:41→07:58)
[2020-12-25] MEDS ORDERED: ATROPINE SULF 1 MG/10 ML SYR IV ONE (07:41)
[2020-12-25] MEDS ORDERED: FENTANYL CITR 100 MCG/2 ML ONE (07:41)
[2020-12-25] MEDS ORDERED: NA CHLORIDE 0.9% 0 ML ONE (07:41)
[2020-12-25 08:25] VITALS: TEMP 97.5
--- NOTE | 2020-12-25 09:39 | OP ---
Date of Procedure: 12/25/2020 Surgeon: Tahir White MD Tankage Supervisor: Mr. Ish Stevens. Procedure: Admitted to my service as an outpatient on 12/25/2020 for heart catheterization. Indication: Ms. Hinojosa is 70. Has a history of hypertension, diabetes, dyslipidemia, atypical chest pain, abnormal stress test. Procedure In Detail: Brought to the laboratory technologist today 12/25/2020. She was prepped and draped in routin e sterile fashion. Given Versed and fentanyl for sedation. A 6-[place] sheath introduced in [facility] t common femoral artery successfully. Angiography there was normal. [employer] was used to close the case. Manuel catheter left and right were used to cannulate the left main and right main respectiv ewa. The left main was normal. LAD was normal. Circumflex was normal. She has a diffuse disease i n the posterior descending artery and posterolateral off the RCA. She was right dominant. There wer e no complications. Blood Loss: 5 mL. Postoperative Diagnosis: Mild coronary artery disease. Anesthesia: Total conscious sedation 45 minutes. Plan: Plan is for medical therapy. I will increase her Lipitor from 20 to 40 daily. She will remai n in the hospital for 2 hours and go home after that, and I will see her in the office in 2 weeks. THOMAS/FIORELLA Voice ID: [id number] Report ID: [id number]
[2020-12-25 10:13] VITALS: BP 111/58; O2SAT 96
== END 2020-12-25 10:15 | disposition home or self-care (01) ==
LOC: CCL 06:29
DX: I25.10 Atherosclerotic heart disease of native coronary artery without angina pectoris (principal); I10 Essential (primary) hypertension; E11.9 Type 2 diabetes mellitus without complications; E78.5 Hyperlipidemia, unspecified; E03.9 Hypothyroidism, unspecified; M15.0 Primary generalized (osteo)arthritis; E66.9 Obesity, unspecified; Z68.29 Body mass index [BMI] 29.0-29.9, adult; Z20.822 Contact with and (suspected) exposure to COVID-19; Z82.49 Family history of ischemic heart disease and other diseases of the circulatory system
CPT/HCPCS: 93005; 85025; 80048; 36415; 85610; 82947; 85730; 93454; U0003; C1893; J2250 ×2; J3010; J7040; J1644; J0583

== ENCOUNTER 2021-09-14 11:02 | Emergency (ER) | payer OTHER ==
--- OUTSIDE RECORDS SUMMARY | 2021-09-14 11:05 | XMS REPORT | Continuity of Care Document ---
:1950 Author Organization [facility] t Address [address] [place] [address] Care Team Providers Name Role Phone Hill MOMIN, Breann Primary Care Physician Tracee Zamudio Attending Clinician Unavailable Tha Garner Attending Clinician Doctor Unassigned, Name Attending Clinician Unavailable Lab, Fam Pob I Attending Clinician Unavailable Payers Payer Name Policy Type Policy Number Effective Date Expiration Date Ave vela [employer] [id number] 2018 00:00:00 [place] Problems Condition Condition Condition Status Onset Resolution Last Treating Co mments Source Name Details Category Date Date Treatment Clinician Date Dyslipidem Dyslipidem Disease Active 2015-08 U corina ia ia 2-06 ity of 00:00: [place] 00 Medical Branch Prediabete Prediabete Disease Active U corina s s 9-06 ity of 00:00: 00 Medical Branch Dizzy Dizzy Disease Active 2014-08 Univers spells spells 2-04 ity of 00:00: 00 Medical Branch Palpitatio Palpitatio Disease Active 2014-08 U corina ns ns 2-04 ity of 00:00: [place] 00 Medical Branch Shortness Shortness Disease Active 2014-08 Uni vers of breath of breath 2-04 ity of 00:00: 00 Medical Branch Atypical Atypical Disease Active 2014-08 Unive rs chest pain chest pain 2- it y of 00:00: [address] Branch Essential Essential Disease Active 2014-08 Uni vers hypertensi hypertensi 2- it y of on on 00:00: [address] Branch Obesity Obesity Disease Active 2014-08 Univers 2-04 ity of 00:00: [address] Branch Postsurgic Postsurgic Disease Active 2014-08 U nivers al al 09-16 ity of hypothyroi hypothyroi 00:00: [facility] dism dism [address] [place] [address] Allergies, Adverse Reactions, Alerts Allergy Allergy Status Severity Reaction(s) Onset Inactive Treating Comm ents Source Name Type Date Date Clinician NO KNOWN Drug Active Univers ALLERGIE Class ity of S [facility] Social History Social Habit Start Date Stop Date Quantity Comments Source History of Cigarette Smoker Universi ty of tobacco use [facility] Exposure to Not sure [facility] SARS-CoV-2 [facility] (event) Branch Tobacco use and 2018-09-27 2018-09-27 Never used Universit y of exposure 00:00:00 00:00:00 [facility] Alcohol intake 2018-09-27 2018-09-27 Current University of 00:00:00 00:00:00 non-drinker of [facility] alcohol (finding) Branch Sex Ass[birth year] Universit y of 00:00:00 00:00:00 [facility] Smoking Status Start Date Stop Date Source Never smoker [facility] Medications Ordered Filled Start Stop Current Ordering Indication Dosage Frequency Signature Comments Components Source Medication Medication Date Date Medication? Clinician (SIG) Name Name amoxicillin 2020- No 1{tbl} 1 tablet, Univers -clavulanat 04-22 Oral, ity of e 01:15: 01:24 ONCE, 1 [place] (AUGMENTIN) 00 :00 dose, Tue Med ical 875-125 mg 04/21/21 at Bran ch per tablet 2014, 1 tablet Routine
Reason for Anti-Infec tive: Empiric Non-Surgic al Prophylaxi s
Durat ion of therapy: 72 hours amoxicillin 2020- No [id number] 1{tbl} Take 1 Univers -clavulanat 04-21 tablet by it y of e 875-125 00:00: 04:59 mouth [place] mg per 00 :00 every 12 Medical tablet (twelve) Branch hours for 7 days. Ondansetron Ondansetron Yes Mike 1 tablet [facility] [...] 00 affected l area Outpati ent Clinics omeprazole Yes [id number] 40mg Take 2 Univers 20 mg 2-13 tablets by ity of tablet 00:00: mouth [place] 00 daily. Medical Branch ondansetron Yes [id number] 4mg Take 1 Univers (ZOFRAN 2-13 tablet by ity of ODT) 4 mg 00:00: mouth [place] disintegrat 00 every 8 Medic al ing tablet (eight) Branch hours as needed for Nausea and Vomiting (N/V). omeprazole Yes [id number] 40mg Take 2 Univers 20 mg 2-13 tablets by ity of tablet 00:00: mouth [place] 00 daily. Medical Branch ondansetron Yes [id number] 4mg Take 1 Univers (ZOFRAN 2-13 tablet by ity of ODT) 4 mg 00:00: mouth [place] disintegrat 00 every 8 Medic al ing tablet (eight) Branch hours as needed for Nausea and Vomiting (N/V). Diclofenac Yes [id number] Take 2-4 Univers Sodium 8-16 grams ity of (VOLTAREN) 00:00: three [place] 1 % gel 00 times a Medical day as Branch needed for pain levothyroxi Yes [id number] 100ug Take 1 Univers ne 100 mcg 8-16 tablet by ity of tablet 00:00: mouth [place] 00 every Medical morning. Branch lisinopril Yes [id number] 10mg Take 1 U nivers 10 mg 8-16 tablet by ity of tablet 00:00: mouth [place] 00 daily. Medical Branch Diclofenac Yes [id number] Take 2-4 Univers Sodium 8-16 grams ity of (VOLTAREN) 00:00: three [place] 1 % gel 00 times a Medical day as Branch needed for pain levothyroxi Yes [id number] 100ug Take 1 Univers ne 100 mcg 8-16 tablet by ity of tablet 00:00: mouth [place] 00 every Medical morning. Branch lisinopril Yes [id number] 10mg Take 1 U nivers 10 mg 8-16 tablet by ity of tablet 00:00: mouth [place] 00 daily. Medical Branch atorvastati Yes [id number] 20mg Take 1 Univers n 20 mg 1-17 tablet by ity of tablet 00:00: mouth at [place] 00 bedtime. Medical Branch atorvastati Yes [id number] 20mg Take 1 Univers n 20 mg 1-17 tablet by ity of tablet 00:00: mouth at [place] 00 bedtime. Medical Branch Lipitor Lipitor Yes Mike [address] [facility] [facility] Lisinopril Lisinopril Yes Mike [address] [facility] [facility] Prilosec Prilosec Yes Mike [address] [facility]TC OTC [facility] Levothyroxi Levothyroxi Yes Mike [address] ne Sodium ne Sodium Zamudio on an Melissa es - empty Memoria stomach in l the [facility] Clinics Immunizations Ordered Filled Immunization Date Status Comments Sourc e Immunization Name Name Td 2021-04-21 Completed University of 00:00:00 [facility] Vital Signs Vital Name Observation Time Observation Value Comments Source Systolic blood 2021-04-22 01:29:23 182 mm[Hg] Univer sity of pressure [facility] Diastolic blood 2021-04-22 01:29:23 83 mm[Hg] Unive rsity of pressure [facility] Heart rate 2021-04-22 01:29:23 51 /min [facility] Respiratory rate 2021-04-22 01:29:23 20 /min [facility] Oxygen saturation in 2021-04-22 01:29:23 98 /min [facility] Arterial blood by [facility] Pulse oximetry Branch Body temperature 2021-04-21 22:51:00 37.17 Magdalena [facility] Body height 2021-04-21 22:51:00 162.6 cm [facility] Body weight 2021-04-21 22:51:00 89.359 kg [facility] BMI 2021-04-21 22:51:00 33.81 kg/m2 [facility] Procedures Procedure Date / Time Performed Performing Clinician Sour e ASSIGNMENT OF BENEFITS 2021-04-22 00:33:15 Doctor Unassigned, No [facility] XR TIBIA FIBULA 2 VW 2021-04-22 00:24:09 Willie Kc [facility] NOTICE OF PRIVACY 2021-04-21 22:32:49 Doctor Unassigned, No [facility] PRACTICES Name [facility] CONSENT/REFUSAL FOR 2021-04-21 22:32:34 Doctor Unassigned, No [facility] DIAGNOSIS AND Name Medical Branch TREATMENT Encounters Start End Encounter Admission Attending Care Care Encounter Source Date/Time Date/Time Type Type Clinicians Facility Department ID 2021-09-09 Outpatient Zamudio, [facility] [id number] 14:05:44 Mike [id number] [facility] 2021-09-09 Outpatient Zamudio, [facility] [id number] 12:38:12 Mike [id number] [facility] 2021-09-09 Outpatient Zamudio, [facility] [id number] 12:37:33 Mike [id number] [facility] 2021-09-09 Outpatient Zamudio, [facility] [id number] 12:36:58 Mike [id number] [facility] 2021-09-09 [facility], [facility] [id number] 12:35:28 Mike [id number] [facility] 2021-09-09 Out[facility] Zamudio, [facility] [id number] 12:28:00 Mike [id number] [facility] 2021-09-09 Outpatient Zamudio, [facility] [id number] 12:20:04 Mike [id number] [facility] 2021-09-09 Outpatient Zamudio, [facility] [id number] 11:44:09 Mike [id number] [facility] 2021-09-09 Outpatient Zamudio, [facility] [id number] 11:42:44 Mike [id number] [facility] 2021-09-09 Outpatient Zamudio, [facility] [id number] 11:42:38 Mike [id number] [facility] 2021-09-09 Outpatient Zamudio, [facility] [id number] 11:31:37 Mike [id number] [facility] 2021-09-09 Outpatient Zamudio, [facility] [id number] 11:26:53 Mike [id number] [facility] 2021-09-09 Outpatient Zamudio, [facility] [id number] 11:18:02 Mike [id number] [facility] 2021-06-15 Emergency [facility] [id number] Univers 20[facility]59:37 [facility] 2021-09-08 2021-09-08 ambulatory [facility] [id number] [facility] 2021-07-21 2021-07-21 ambulatory [facility] [id number] [facility] 2021-06-22 2021-06-22 ambulatory [facility] [id number] [facility] 2021-04-21 2021-04-21 Emergency ERNESTINA Kc [id number] Univers 17:57:00 20:45:00 Willie Wade [id number] i ty of [place] [id number] [facility] [id number] [facility] 084 Branch 2021-04-21 2021-04-21 Orders Doctor DENISSE [id number] 00:00:00 00:00:00 Only Unassigned, GLO [id number] ity of [facility] [id number] [facility] [id number] [facility] 009 Branch 2021-03-11 2021-03-11 Outpatient [facility] [id number] [facility] 2021-03-04 2021-03-04 Outpatient [facility] [id number] [facility] 2020-11-28 2020-11-28 Outpatient [facility] [id number] [facility] 2020-11-24 2020-11-24 Outpatient [facility] [id number] [facility] 2020-10-21 2020-10-21 Outpatient [facility] [id number] [facility] 2020-10-07 2020-10-07 Outpatient [facility] [id number] [facility] 2020-10-06 2020-10-06 Outpatient [facility] [id number] [facility] 2020-09-16 2020-09-16 Outpatient [facility] [id number] [facility] 2020-09-12 2020-09-12 Outpatient [facility] [id number] [facility] 2020-08-26 2020-08-26 Outpatient [facility] [id number] [facility] 2020-08-04 2020-08-04 Outpatient [facility] [id number] [facility] 2020-07-30 2020-07-30 Outpatient [facility] [id number] [facility] 2020-07-01 2020-07-01 Outpatient [facility] [id number] [facility] 2020-06-02 2020-06-02 Outpatient [facility] [id number] [facility] 2020-05-29 2020-05-29 Outpatient [facility] [id number] [facility] 2020-05-28 2020-05-28 Outpatient [facility] [id number] [facility] 2020-05-27 2020-05-27 Outpatient [facility] [id number] [facility] 2020-04-22 2020-04-22 [facility] [id number] 11:39:00 11:39:00 [facility] [place] [facility] ent Clinics 2020-04-15 2020-04-15 [facility] [id number] 15:20:00 15:20:00 t [place] navabi s - [employer] [facility] l Medicine Outpati ent Clinics 2020-04-07 2020-04-07 [facility] [id number] 07:48:00 07:48:00 t YaBeam s - Drive [facility] l Medicine Outpati ent Clinics 2020-04-03 2020-04-03 Laboratory Lab, [facility] [id number] 15:59:39 16:19:39 Only Fam b [employer] [id number] [place] [id number] Professio [id number] nal [address] 2020-04-03 2020-04-03 Outpatient R [facility] [id number] Univers 16:00:00 16:00:00 ity [facility] 2020-04-03 2020-04-03 Outpatient R [facility] [id number] Univers 16:00:00 [facility]:00[facility] 2020-04-03 2020-04-03 [facility] [id number] 11:15:00 11:15:00 t YaBeam s - [employer] [facility] Medicine l Medicine Outpati ent Clinics 2020-03-07 2020-03-07 [facility] [id number] 08:15:00 08:15:00 t YaBeam s - [employer] [facility] l Medicine Outpati ent Clinics 2020-02-27 2020-02-27 [facility] [id number] 11:04:00 11:04:00 t YaBeam s - [employer] [facility] l Medicine Outpati ent Clinics 2020-02-25 2020-02-25 [facility] [id number] 10:39:00 10:39:00 t YaBeam s - [employer] [facility] l Medicine Outpati ent Clinics 2020-01-30 2020-01-30 [facility] [id number] 15:45:00 15:45:00 t [place] navabi s - [facility] l Medicine Outpati ent Clinics 2020-01-30 2020-01-30 [facility] [id number] 15:45:00 15:45:[address] Luke s - Drive [facility] Medicine l Medicine Outpati ent Clinics 2020-01-09 2020-01-09 [facility] [id number] 11:17:00 11:17:[address] Luke s - Drive [facility] Medicine l Medicine Outpati ent Clinics 2019-11-27 2019-11-27 [facility] [id number] 14:00:00 14:00:[address] LuDGSE s - Drive [facility] Medicine l Medicine Outpati ent Clinics 2019-05-22 2019-05-22 [facility] [id number] 16:00:00 16:00:00 t [facility] Medicine l Medicine Outpati ent Clinics 2019-05-08 2019-05-08 [facility] [id number] 16:15:00 16:15:00 t [facility] Medicine l Medicine Outpati ent Clinics 2019-03-20 2019-03-20 [facility] [id number] 08:20:00 08:20:00 t [facility] Medicine Outpati ent Clinics 2019-02-13 2019-02-13 [facility] [id number] 16:15:00 16:15:00 t [facility] Medicine Medicine Outpati ent Clinics 2018-11-24 2018-11-24 [facility] [id number] 16:23:00 16:23:00 t [facility] Medicine l Medicine Outpati ent Clinics 2018-11-13 2018-11-13 [facility] [id number] 16:30:00 16:30:00 t [facility] Medicine Outpati ent Clinics 2018-09-28 2018-09-28 [facility] [id number] 15:00:00 15:00:00 t [facility] Family Medicine l Medicine Outpati ent Clinics Results Test Description Test Time Test Comments Results Result [facility] e Comments XR TIBIA FIBULA Impression: 1. Small University of 2 VW RIGHT 8 soft tissue opacity [facility] 01:17:14 anterior to the Branch distal tibia likely reflects acalcification. Foreign body cannot be excluded if injury has occurred inthis region, however.2. Degenerative changes and calcaneal spur, with no acute bonyabnormalities are evident. RL: 460 Ordering physician: WILLIE KC History: Dog bite. Rule out foreign body. Technique: Right lower leg, 2 views Technical quality: Adequate Comparison: None Findings: There is a punctate soft tissue opacity projected anterior to the distaltibia in the lateral projection, measuring approximately 2 mm in greatestdimension. Soft tissue edema is seen laterally. No fractures areidentified. There is periarticular osteophyte formation of the knee. Thereis a plantar calcaneal spur and there is a calcaneal enthesophyte at theAchilles insertion. Ut, Radiant Results Inft User - 04/21/2021 8:18 PM CDT Ordering physician: WILLIE KCHistory: Dog bite. Rule out foreign body.Technique: Right lower leg, 2 viewsTechnical quality: AdequateComparison: NoneFindings: There is a punctate soft tissue opacity projected anterior to the distaltibia in the lateral projection, measuring approximately 2 mm in greatestdimension. Soft tissue edema is seen laterally. No fractures areidentified. There is periarticular osteophyte formation of the knee. Thereis a plantar calcaneal spur and there is a calcaneal enthesophyte at theAchilles insertion.IMPRESSIONI mpression:1. Small soft tissue opacity anterior to the distal tibia likely reflects acalcification. Foreign body cannot be excluded if injury has occurred inthis region, however.2. Degenerative changes and calcaneal spur, with no acute bonyabnormalities are evident.RL: 460
[2021-09-14] MEDS ORDERED: KETOROLAC 30 MG/ML INJ ONE (13:34)
[2021-09-14 13:46] LABS: Urine Blood Negative (Negative); Urine Glucose Negative (Negative); Urine Protein Negative (Negative); Urine Specific Gravity >=1.030 (1.005-1.030); Urine pH 7.5 (5.0-7.0)
--- NOTE | 2021-09-14 14:29 | ER ---
Nurse's Notes [facility] Name: Katya Hinojosa Age: 71 yrs Sex: Female : 1950 Arrival Date: 09/14/2021 Time: 11:03 Bed 10 Private MD: Mike Zamudio Diagnosis: Low back pain;Essential (primary) hypertension Presentation: 09/14 12:06 Chief complaint: Patient states: lower back pain without injury x 4 days, states that [facility] her b/p has been high with increased pain. Coronavirus screen: Vaccine status: Patient reports receiving the 2nd dose of the covid vaccine. Ebola Screen: Patient negative for fever greater than or equal to 101.5 degrees Fahrenheit, and additional compatible Ebola Virus Disease symptoms. Initial Sepsis Screen: Does the patient meet any 2 criteria? No. Patient's initial sepsis screen is negative. Does the patient have a suspected source of infection? No. Patient's initial sepsis screen is negative. Risk Assessment: Do you want to hurt yourself or someone else? Patient reports no desire to harm self or others. Onset of symptoms was September 10, 2021. 12:06 Method Of Arrival: Ambulatory [facility] 12:06 Acuity: AMAYA 4 [facility] Triage Assessment: 12:08 General: Appears in no apparent distress. Behavior is calm, cooperative. Pain: [facility] Complains of pain in back Pain currently is 7 out of 10 on a pain scale. Quality of pain is described as aching, gnawing. Historical: - Allergies: 12:07 No Known Allergies; [facility] - PMHx: 12:07 Diabetes - NIDDM; High Cholesterol; Hypertension; Hypothyroidism; [facility] - Immunization history:: Adult Immunizations up to date, Client reports receiving the 2nd dose of the Covid vaccine. - Social history:: Smoking status: Patient denies any tobacco usage or history of. Screenin:42 Abuse screen: Denies threats or abuse. Denies injuries from another. Nutritional ld1 screening: No deficits noted. Tuberculosis screening: No symptoms or risk factors identified. Fall Risk None identified. Assessment: 13:40 General: Appears in no apparent distress. comfortable, Behavior is calm, cooperative, ld1 appropriate for age. Pain: Complains of pain in low back area Pain currently is 6 out of 10 on a pain scale. Pain began gradually, Is intermittent. Neuro: Level of Consciousness is awake, alert, obeys commands, Oriented to person, place, time, situation. Cardiovascular: Capillary refill < 3 seconds Patient's skin is warm and dry. Respiratory: Airway is patent Respiratory effort is even, unlabored, Respiratory pattern is regular, symmetrical. Vital Signs: 12:06 BP 154 / 80; Pulse 76; Resp 17; Temp 98.2(O); Pulse Ox 100% ; Weight 69.85 kg; Height 2 [facility] ft. 52 in. (193.04 cm); Pain 7/10; 13:40 BP 144 / 67; Pulse 60; Resp 18; Pulse Ox 97% on R/A; ld1 12:06 Body Mass Index 18.75 (69.85 kg, 193.04 cm) 6 ED Course: 11:03 Patient arrived in ED. am2 11:03 Mike Zamudio DO is Private Physician. am2 12:07 Triage completed. jh6 12:08 Arm band placed on left wrist. [facility] 13:11 Aleah Sandhu FNP-C is [facility]. kb 13:11 Simon Chen MD is Attending Physician. kb 14:42 No provider procedures requiring assistance completed. Patient did not have IV access ld1 during this emergency room visit. Administered Medications: 13:40 Drug: Ketorolac 30 mg Route: IM; Site: left gluteus; ld1 13:40 Follow up: Response: No adverse reaction ld1 Outcome: 14:29 Discharge ordered by . kb 14:43 Discharged to home ambulatory. ld1 14:43 Condition: stable 14:43 Discharge instructions given to patient, Instructed on discharge instructions, follow up and referral plans. Demonstrated understanding of instructions, follow-up care. 14:43 Patient left the ED. ld1 Signatures: Aleah Sandhu FNP-C FNP-Ckb Moreno, Amanda am2 Wendie Casanova RN RN ld1 Dina Gloria RN RN 6
--- NOTE | 2021-09-14 14:30 | EDPHYS ---
Physician Documentation [facility] Name: Katya Hinojosa Age: 71 yrs Sex: Female : 1950 Arrival Date: 09/14/2021 Time: 11:03 Bed 10 Private MD: Mike Zamudio ED Physician Simon Chen HPI: 09/14 15:18 This 71 yrs old Female presents to ER via Ambulatory with complaints of low kb back pain. 15:18 Pt states she has been having low back pain and high blood pressure. States her BP was kb 160 this morning and she had a headache. Denies headache at this time. . 15:20 The patient presents with pain that is acute, with no known mechanism of injury. The kb symptoms are located in the low back. The pain does not radiate. The problem was sustained from unknown cause. Onset: The symptoms/episode began/occurred 4 day(s) ago. Modifying factors: The patient symptoms are alleviated by nothing, the patient symptoms are aggravated by any movement. Associated signs and symptoms: The patient has no apparent associated signs or symptoms. Severity of symptoms: At their worst the symptoms were mild, moderate, in the emergency department the symptoms are unchanged. The patient has not experienced similar symptoms in the past. The patient has not recently seen a physician. Historical: - Allergies: 12:07 No Known Allergies; jh6 - PMHx: 12:07 Diabetes - NIDDM; High Cholesterol; Hypertension; Hypothyroidism; jh6 - Immunization history:: Adult Immunizations up to date, Client reports receiving the 2nd dose of the Covid vaccine. - Social history:: Smoking status: Patient denies any tobacco usage or history of. ROS: 15:19 Constitutional: Negative for fever, chills, and weight loss. kb 15:19 Back: Positive for pain at rest, pain with movement, of the low back area. 15:19 Neuro: Positive for headache. 15:19 All other systems are negative. Exam: 15:19 Constitutional: This is a well developed, well nourished patient who is awake, alert, kb and in no acute distress. Head/Face: Normocephalic, atraumatic. ENT: Moist Mucous membranes Cardiovascular: Regular rate and rhythm with a normal S1 and S2. No gallops, murmurs, or rubs. No pulse deficits. Respiratory: Respirations even and unlabored. No increased work of breathing. Talking in full sentences Abdomen/GI: Soft, non-tender. No distention Back: No spinal tenderness. No costovertebral tenderness. Full range of motion. Skin: Warm, dry with normal turgor. Normal color. MS/ Extremity: Pulses equal, no cyanosis. Neurovascular intact. Full, normal range of motion. Neuro: Awake and alert, GCS 15, oriented to person, place, time, and situation. Moves all extremities. Normal gait. Psych: Awake, alert, with orientation to person, place and time. Behavior, mood, and affect are within normal limits. Vital Signs: 12:06 BP 154 / 80; Pulse 76; Resp 17; Temp 98.2(O); Pulse Ox 100% ; Weight 69.85 kg; Height 2 6 ft. 52 in. (193.04 cm); Pain 7/10; 13:40 BP 144 / 67; Pulse 60; Resp 18; Pulse Ox 97% on R/A; ld1 12:06 Body Mass Index 18.75 (69.85 kg, 193.04 cm) 6 MDM: 13:11 Patient medically screened. kb 15:14 Data reviewed: vital signs, nurses notes. Data interpreted: Pulse oximetry: on room air kb is 97 %. Interpretation: normal. Counseling: I had a detailed discussion with the patient and/or guardian regarding: the historical points, exam findings, and any diagnostic results supporting the discharge/admit diagnosis, the need for outpatient follow up, a family practitioner, to return to the emergency department if symptoms worsen or persist or if there are any questions or concerns that arise at home. 09/14 13:46 Order name: Urine Dipstick-Ancillary; Complete Time: 14:04 EDMS 09/14 13:17 Order name: Urine Dipstick-Ancillary (obtain specimen); Complete Time: 13:40 kb Administered Medications: 13:40 Drug: Ketorolac 30 mg Route: IM; Site: left gluteus; ld1 13:40 Follow up: Response: No adverse reaction ld1 Disposition: 17:47 Co-signature as Attending Physician, Simon Chen MD. rn Disposition Summary: 09/14/21 14:29 Discharge Ordered Location: Home kb Condition: Stable kb Diagnosis - Low back pain kb - Essential (primary) hypertension kb Followup: kb - With: Emergency Department - When: As needed - Reason: Worsening of condition Followup: kb - With: Private Physician - When: 2 - 3 days - Reason: Recheck today's complaints, Continuance of care, Re-evaluation by your physician Discharge Instructions: - Discharge Summary Sheet kb - Musculoskeletal Pain kb Forms: - Medication Reconciliation Form kb - Thank You Letter kb - Antibiotic Education kb - Prescription Opioid Use kb - Work release form ld1 Signatures: Dispatcher [employer] EDAleah Elmore, JACKY-C JACKY-Simon Barbosa MD MD rn Wendie Casanova RN RN ld1 Dina Gloria RN RN jh6 Corrections: (The following items were deleted from the chart) 15:20 15:20 Onset: The symptoms/episode began/occurred 3 day(s) ago, analisa hauser
[2021-09-14 14:47] VITALS: TEMP 98.2
[2021-09-14 14:48] VITALS: BP 144/67; O2SAT 97
== END 2021-09-14 14:43 | disposition home or self-care (01) ==
LOC: ER 11:02
DX: M54.50 Low back pain, unspecified (principal); I10 Essential (primary) hypertension; E11.9 Type 2 diabetes mellitus without complications; E03.9 Hypothyroidism, unspecified; E78.00 Pure hypercholesterolemia, unspecified
CPT/HCPCS: 81003; 96372; 99283

== ENCOUNTER 2022-02-11 12:06 | Emergency (ER) | payer OTHER ==
[2022-02-11] MEDS ORDERED: METOCLOPRAMIDE 10 MG/2mL INJ ONE (13:29)
[2022-02-11] MEDS ORDERED: NA CHLORIDE 0.9% 500 ML ONE (13:29)
--- NOTE | 2022-02-11 13:44 | RAD REPORT ---
EXAM DESCRIPTION: RAD - Chest Single View - 02/11/2022 1:37 pm CLINICAL HISTORY: CHEST PAIN Chest pain. COMPARISON: Chest Single View dated 09/22/2021; Chest Single View dated 09/07/2020; Chest Single View d ated 07/31/2020; Chest Single View dated 09/20/2018 FINDINGS: Portable technique limits examination quality. The lungs are grossly clear. The heart is normal in size. No displaced fractures. IMPRESSION: No acute intrathoracic process suspected.
[2022-02-11 13:45] LABS: Absolute Lymphocytes (CBC) 2.3 K/uL (0.7-4.9); Lymphocytes % 30.1 % (15.3-44.8); MCV 93.1 fL (80-100); MPV 8.2 fL (7.6-11.3); RBC Red Blood Cell Count 3.76 M/uL (3.86-4.86)
[2022-02-11 13:49] LABS: Protime INR 0.95
--- NOTE | 2022-02-11 13:58 | RAD REPORT ---
EXAM DESCRIPTION: CT - Head Brain Wo Cont - 02/11/2022 1:50 pm CLINICAL HISTORY: Headache, new or worsening Headache, drowsiness COMPARISON: Head Brain Wo Cont dated 07/31/2020; Head Brain Wo Cont dated 04/25/2019 TECHNIQUE: All CT scans are performed using dose optimization technique as appropriate and may inclu de automated exposure control or mA/KV adjustment according to patient size. FINDINGS: No intracranial hemorrhage, hydrocephalus or extra-axial fluid collection.No areas of brai n edema or evidence of midline shift. The paranasal sinuses and mastoids are clear. The calvarium is intact. IMPRESSION: No acute intracranial abnormality.
[2022-02-11 15:17] LABS: Albumin 3.5 g/dL (3.4-5.0); Bilirubin Direct 0.1 mg/dL (0-0.2); Bilirubin Total 0.3 mg/dL (0.2-1.0); Potassium 3.2 mmol/L (3.5-5.1); Protein, Total 6.7 g/dL (6.4-8.2)
--- NOTE | 2022-02-11 15:58 | RAD REPORT ---
EXAM DESCRIPTION: CT - Head angio - 02/11/2022 3:41 pm CLINICAL HISTORY: Headache, new or worsening COMPARISON: Head Brain Wo Cont dated 02/11/2022; Head Brain Wo Cont dated 07/31/2020; Neck Angio date d 02/11/2022 TECHNIQUE: CT angiography of the head was performed with MIPs. All CT scans are performed using dose optimization technique as appropriate and may include automated exposure control or mA/KV adjustment according to patient size. FINDINGS: No evidence of aneurysm is detected. No flow-limiting stenosis or vascular malformation id entified. Antegrade flow is seen in the vertebral arteries. Mildly dominant left vertebral artery. The visualized dural venous sinuses are patent. IMPRESSION: No significant flow abnormality is detected.
--- NOTE | 2022-02-11 16:03 | RAD REPORT ---
EXAM DESCRIPTION: CT - Neck Angio - 02/11/2022 3:41 pm CLINICAL HISTORY: headache Headache, neck pain, drowsiness COMPARISON: CT HEAD CSPINE MPR WO CONTRAST dated 04/16/2015; SOFT TISSUE NECK W CONTRAST dated 11/25/19 TECHNIQUE: CT angiography of the neck vessels was performed with MIPs. All CT scans are performed using dose optimization technique as appropriate and may include automated exposure control or mA/KV adjustment according to patient size. FINDINGS: A left aortic arch is identified with normal three vessel configuration of the great vesse ls. No significant flow abnormality is seen of the common carotid bilaterally. No significant stenosis is identified involving the cervical segments of both internal carotid arteri es. Normal flow is seen within both vertebral arteries. IMPRESSION: No significant flow abnormality of the neck vessels is identified.
[2022-02-11] MEDS ORDERED: POTASSIUM 25 MEQ EFFERV TAB ONE (16:09)
[2022-02-11] MEDS ORDERED: dexAMETHasone 10 MG/ML VIAL ONE (16:33)
[2022-02-11] MEDS ORDERED: KETOROLAC 30 MG/ML INJ ONE (16:33)
[2022-02-11] MEDS ORDERED: DIPHENHYDRAMINE 50 MG/ML VIAL ONE (16:33)
--- NOTE | 2022-02-11 17:13 | ER ---
Nurse's Notes [facility] Name: Katya Hinojosa Age: 71 yrs Sex: Female : 1950 Arrival Date: 02/11/2022 Time: 12:09 Bed 10 Private MD: Diagnosis: Headache;Nausea Presentation: 02/11 12:21 Chief complaint: Patient states: she has been having a headache with nausea for approx ap3 2 days now. Patient states she is unsure if it is anxiety or not because she feels a little "jittery" as well. Coronavirus screen: Client presents with at least one sign or symptom that may indicate coronavirus-19. Ebola Screen: No symptoms or risks identified at this time. Initial Sepsis Screen: Does the patient meet any 2 criteria? No. Patient's initial sepsis screen is negative. Does the patient have a suspected source of infection? No. Patient's initial sepsis screen is negative. Risk Assessment: Do you want to hurt yourself or someone else? Patient reports no desire to harm self or others. Onset of symptoms was February 09, 2022. 12:21 Method Of Arrival: Ambulatory ap3 12:25 Acuity: AMAYA 4 ap3 13:12 Acuity: AMAYA 3 iw Triage Assessment: 12:23 Headache History: The patient has had previous headaches and this one is similar to ap3 previous episodes. General: Appears in no apparent distress. uncomfortable, Behavior is calm, cooperative. General: Reports fatigue for. Pain: Complains of pain in head Pain currently is 8 out of 10 on a pain scale. Pain began gradually, 2-3 days ago. Also complains of sleepiness. Neuro: Level of Consciousness is awake, alert, obeys commands, Oriented to person, place, time, situation, Speech is normal. Cardiovascular: Patient's skin is warm and dry. Respiratory: Airway is patent Respiratory effort is even, unlabored, Respiratory pattern is regular, symmetrical. Historical: - Allergies: 12:23 No Known Allergies; ap3 - PMHx: 12:23 Diabetes - NIDDM; High Cholesterol; Hypertension; Hypothyroidism; ap3 - Immunization history:: Client reports receiving the 2nd dose of the Covid vaccine. - Social history:: Smoking status: Patient denies any tobacco usage or history of. Screenin:25 Abuse screen: Denies threats or abuse. Nutritional screening: No deficits noted. ap3 Tuberculosis screening: No symptoms or risk factors identified. Fall Risk None identified. Assessment: 13:11 General: Appears in no apparent distress. comfortable, Behavior is calm, cooperative, ld1 appropriate for age, Reports. Pain: Complains of pain in forehead, right restorationist and left restorationist Pain does not radiate. Pain currently is 10 out of 10 on a pain scale. Quality of pain is described as pressure, throbbing. Neuro: Level of Consciousness is awake, alert, obeys commands, Oriented to person, place, time, situation, Reports dizziness, headache weakness. Cardiovascular: Capillary refill < 3 seconds Patient's skin is warm and dry. Rhythm is sinus rhythm. Respiratory: Airway is patent Respiratory effort is even, unlabored. GI: Abdomen is round non-distended, Reports nausea. : No signs and/or symptoms were reported regarding the genitourinary system. EENT: No signs and/or symptoms were reported regarding the EENT system. Derm: No signs and/or symptoms reported regarding the dermatologic system. Musculoskeletal: No signs and/or symptoms reported regarding the musculoskeletal system. Vital Signs: 12:21 Pulse 62; Resp 17; Temp 98.8; Pulse Ox 100% ; Weight 89.81 kg; Height 5 ft. 5 in. ap3 (165.10 cm); 12:21 BP 120 / 53; ap3 13:11 BP 138 / 65; Pulse 58; Resp 25; Pulse Ox 97% on R/A; Pain 10/10; ld1 14:48 BP 124 / 57; Pulse 52; Resp 18; Pulse Ox 95% on R/A; Pain 8/10; eh3 16:17 BP 143 / 68; Pulse 55; Resp 18; Pulse Ox 98% on R/A; ld1 12:21 Body Mass Index 32.95 (89.81 kg, 165.10 cm) ap3 ED Course: 12:09 Patient arrived in ED. as 12:25 Triage completed. ap3 12:25 Arm band placed on right wrist. ap3 12:29 Wilner Yo PA is PHCP. cp 12:29 Wilner Beth MD is Attending Physician. cp 12:29 Wendie Casanova RN is Primary Nurse. ld1 13:11 Patient has correct armband on for positive identification. Bed in low position. Call ld1 light in reach. Side rails up X2. Client placed on continuous cardiac and pulse oximetry monitoring. NIBP monitoring applied. Door closed. Noise minimized. 13:11 No provider procedures requiring assistance completed. ld1 13:39 XRAY Chest (1 view) In Process Unspecified. EDMS 13:40 Inserted saline lock: 20 gauge in right antecubital area, using aseptic technique. eh3 13:52 CT Head Brain wo Cont In Process Unspecified. EDMS 15:42 CT Head Angio In Process Unspecified. EDMS 15:43 CT Neck Angio In Process Unspecified. EDMS 17:30 IV discontinued, intact, bleeding controlled, No redness/swelling at site. Pressure ld1 dressing applied. Administered Medications: 13:33 Drug: NS 0.9% 500 ml Route: IV; Rate: calculated rate; Site: right antecubital; ld1 13:33 Drug: Reglan (metoCLOPramide) 10 mg Route: IVP; Site: right antecubital; ld1 16:05 Drug: Potassium Effervescent Tablet 50 mEq Route: PO; ld1 16:32 Drug: Dexamethasone 10 mg Route: IVP; Site: right antecubital; ld1 16:32 Drug: Benadryl (diphenhydrAMINE) 25 mg Route: IVP; Site: right antecubital; ld1 16:33 Drug: Ketorolac 15 mg Route: IVP; Site: right antecubital; ld1 Medication: 17:31 VIS not applicable for this client. ld1 Outcome: 17:13 Discharge ordered by . ashlie 17:30 Discharged to home ambulatory. ld1 17:30 Condition: stable 17:30 Discharge instructions given to patient, Instructed on discharge instructions, follow up and referral plans. medication usage, Demonstrated understanding of instructions, follow-up care, medications. 17:30 Prescriptions given X 2. ld1 17:31 Patient left the ED. ld1 Signatures: Dispatcher [employer] Elena Sotelo Irene, RN RN iw Page, Corey, PA PA cp Prokisch, Amanda, RN RN ap3 Wendie Casanova RN RN ld1 Lacie Rae eh3
--- NOTE | 2022-02-11 17:13 | EDPHYS ---
Physician Documentation [facility] Name: Katya Hinojosa Age: 71 yrs Sex: Female : 1950 Arrival Date: 02/11/2022 Time: 12:09 Bed 10 Private MD: ED Physician Wilner Beth HPI: 02/11 13:15 This 71 yrs old Female presents to ER via Ambulatory with complaints of cp Headache, Nausea. 13:15 The patient complains of pain to the forehead, right hoahaoism and left hoahaoism. The cp patient describes the headache as aching. Onset: The symptoms/episode began/occurred this morning. 13:15 Associated signs and symptoms: Pertinent positives: nausea, "shaky", Pertinent cp negatives: altered mental status, fever, neck stiffness, paresthesias, sinus congestion, sinus tenderness, vision changes, vomiting, weakness. Severity of symptoms: in the emergency department the pain a " 8" out of "10". Headache History: Other denies history of migraines. Historical: - Allergies: 12:23 No Known Allergies; ap3 - PMHx: 12:23 Diabetes - NIDDM; High Cholesterol; Hypertension; Hypothyroidism; ap3 - Immunization history:: Client reports receiving the 2nd dose of the Covid vaccine. - Social history:: Smoking status: Patient denies any tobacco usage or history of. ROS: 13:20 Constitutional: Negative for body aches, chills, fever, poor PO intake. cp 13:20 Eyes: Negative for injury, pain, redness, and discharge. cp 13:20 ENT: Negative for drainage from ear(s), ear pain, sore throat, difficulty swallowing, difficulty handling secretions. 13:20 Neck: Negative for pain with movement, pain at rest, stiffness. 13:20 Cardiovascular: Negative for chest pain, edema, palpitations. 13:20 Respiratory: Negative for cough, shortness of breath, wheezing. 13:20 Abdomen/GI: Positive for nausea, Negative for abdominal pain, vomiting, diarrhea, constipation. 13:20 : Negative for urinary symptoms. 13:20 Neuro: Positive for headache, Negative for altered mental status, numbness, weakness. 13:20 All other systems are negative. Exam: 13:25 Constitutional: The patient appears in no acute distress, alert, awake, cp non-diaphoretic, non-toxic, well developed, well nourished. 13:25 Head/Face: Normocephalic, atraumatic. cp 13:25 Eyes: Periorbital structures: appear normal, Conjunctiva: normal, no exudate, no injection, Sclera: no appreciated abnormality, Lids and lashes: appear normal, bilaterally. 13:25 ENT: External ear(s): are unremarkable, Ear canal(s): are normal, clear, TM's: dullness, bilaterally, Nose: is normal, Mouth: Lips: moist, Oral mucosa: pink and intact, moist, Posterior pharynx: Airway: no evidence of obstruction, patent, erythema, is not appreciated, exudate, is not appreciated. 13:25 Neck: ROM/movement: is normal, is supple, without pain, no range of motions limitations, no meningismus, no nuchal rigidity. 13:25 Chest/axilla: Inspection: normal. 13:25 Cardiovascular: Rate: bradycardic, Rhythm: regular, Edema: is not appreciated, JVD: is not appreciated. 13:25 Respiratory: the patient does not display signs of respiratory distress, Respirations: normal, no use of accessory muscles, no retractions, labored breathing, is not present, Breath sounds: are clear throughout, no decreased breath sounds, no stridor, no wheezing. 13:25 Abdomen/GI: Inspection: abdomen appears normal, Palpation: abdomen is soft and non-tender, in all quadrants. 13:25 Neuro: Orientation: to person, place \\T\\ time. Mentation: is normal, Cerebellar function: Romberg testing is negative, Motor: moves all fours, strength is normal, Sensation: is normal. 13:27 ECG was reviewed by the Attending Physician. cp Vital Signs: 12:21 Pulse 62; Resp 17; Temp 98.8; Pulse Ox 100% ; Weight 89.81 kg; Height 5 ft. 5 in. ap3 (165.10 cm); 12:21 BP 120 / 53; ap3 13:11 BP 138 / 65; Pulse 58; Resp 25; Pulse Ox 97% on R/A; Pain 10/10; ld1 14:48 BP 124 / 57; Pulse 52; Resp 18; Pulse Ox 95% on R/A; Pain 8/10; eh3 16:17 BP 143 / 68; Pulse 55; Resp 18; Pulse Ox 98% on R/A; ld1 12:21 Body Mass Index 32.95 (89.81 kg, 165.10 cm) ap3 MDM: 12:30 Patient medically screened. mechelle 14:00 Differential diagnosis: hyponatremia, intracerebral hemorrhage, migraine, neoplasm, cp sinusitis, subarachnoid bleed, temporal arteritis, tension headache. 17:10 Data reviewed: vital signs, nurses notes, lab test result(s), EKG, radiologic studies, cp CT scan, plain films. 17:10 Test interpretation: by ED physician or midlevel provider: ECG, plain radiologic cp studies. Counseling: I had a detailed discussion with the patient and/or guardian regarding: the historical points, exam findings, and any diagnostic results supporting the discharge/admit diagnosis, the presence of at least one elevated blood pressure reading (>120/80) during this emergency department visit, lab results, radiology results, the need for outpatient follow up, a family practitioner, to return to the emergency department if symptoms worsen or persist or if there are any questions or concerns that arise at home. Response to treatment: the patient's symptoms have markedly improved after treatment, VSS. Patient reports headache markedly improved and requesting discharge to home. 02/11 13:11 Order name: Basic Metabolic Panel; Complete Time: 15:43 cp 02/11 15:43 Interpretation: Normal except: K 3.2; CL 110; GLUC 130. cp 02/11 13:11 Order name: CBC with Diff; Complete Time: 14:20 cp 02/11 16:19 Interpretation: Normal except: RBC 3.76; HCT 35.0; EOSINOPHIL % 4.5. cp 02/11 13:11 Order name: LFT's; Complete Time: 15:43 cp 02/11 13:11 Order name: Magnesium; Complete Time: 15:43 cp 02/11 13:11 Order name: PT-INR; Complete Time: 14:20 cp 02/11 13:11 Order name: Troponin HS; Complete Time: 15:43 cp 02/11 13:11 Order name: XRAY Chest (1 view); Complete Time: 14:20 cp 02/11 13:11 Order name: CT Head Brain wo Cont; Complete Time: 14:20 cp 02/11 14:21 Order name: CT Head Angio; Complete Time: 16:11 cp 02/11 16:12 Interpretation: Report reviewed. cp 02/11 14:21 Order name: CT Neck Angio; Complete Time: 16:11 cp 02/11 16:12 Interpretation: Report reviewed. cp 02/11 13:11 Order name: EKG; Complete Time: 13:12 cp 02/11 13:11 Order name: Cardiac monitoring; Complete Time: 13:19 cp 02/11 13:11 Order name: EKG - Nurse/Tech; Complete Time: 13:34 cp 02/11 13:11 Order name: IV Saline Lock; Complete Time: 13:34 cp 02/11 13:11 Order name: Labs collected and sent; Complete Time: 13:34 cp 02/11 13:11 Order name: O2 Per Protocol; Complete Time: 13:19 cp 02/11 13:11 Order name: O2 Sat Monitoring; Complete Time: 13:19 cp EC:27 Rate is 51 beats/min. Rhythm is regular. [place] interval is normal. QRS interval is normal. cp QT interval is normal. T waves are Inverted in leads III, aVF. Interpreted by me. Reviewed by me. Administered Medications: 13:33 Drug: NS 0.9% 500 ml Route: IV; Rate: calculated rate; Site: right antecubital; ld1 13:33 Drug: Reglan (metoCLOPramide) 10 mg Route: IVP; Site: right antecubital; ld1 16:05 Drug: Potassium Effervescent Tablet 50 mEq Route: PO; ld1 16:32 Drug: Dexamethasone 10 mg Route: IVP; Site: right antecubital; ld1 16:32 Drug: Benadryl (diphenhydrAMINE) 25 mg Route: IVP; Site: right antecubital; ld1 16:33 Drug: Ketorolac 15 mg Route: IVP; Site: right antecubital; ld1 Disposition Summary: 02/11/22 17:13 Discharge Ordered Location: Home cp Problem: new cp Symptoms: have improved cp Condition: Stable cp Diagnosis - Headache cp - Nausea cp Followup: cp - With: Private Physician - When: 2 - 3 days - Reason: Recheck today's complaints Discharge Instructions: - Discharge Summary Sheet cp - General Headache Without Cause cp - Nausea, Adult cp - Form - Return To Work ld1 Forms: - Medication Reconciliation Form cp - Thank You Letter cp - Antibiotic Education cp - Prescription Opioid Use cp - Work release form ld1 Prescriptions: - Fioricet 50-300-40 mg Oral capsule - take 1 capsule by ORAL route every 4 hours as needed; 30 capsule; Refills: 0, cp Product Selection Permitted - Zofran 4 mg Oral Tablet - take 1 tablet by ORAL route every 12 hours As needed; 20 tablet; Refills: 0, cp Product Selection Permitted Signatures: Dispatcher [employer] EDWilner Yusuf MD MD cha Page, Corey, PA PA cp Prokisch, Amanda, RN RN ap3 Wendie Casanova RN RN ld1
[2022-02-11 17:39] VITALS: TEMP 98.8
[2022-02-11 17:45] VITALS: BP 143/68; O2SAT 98
--- NOTE | 2022-02-12 09:51 | EKG ---
Test Date: 2022-02-11 Test Time: 13:23:26 Radio Script Writer: LAMBERTO MEASUREMENT RESULTS: Intervals: Rate: 51 MO: 188 QRSD: 72 QT: 388 QTc: 357 Williams: P: 75 MO: 188 QRS: -3 T: -27 INTERPRETIVE STATEMENTS: Sinus bradycardia Cannot rule out Anterior infarct, age undetermined Abnormal ECG Compared to ECG 09/22/2021 06:49:29 Myocardial infarct finding now present Left ventricular hypertrophy no longer present Electronically Signed On 02-12-22 09:48:42 CDT by Tahir White
== END 2022-02-11 17:31 | disposition home or self-care (01) ==
LOC: ER 12:06
DX: R51.9 Headache, unspecified (principal); R11.0 Nausea; I10 Essential (primary) hypertension; E11.9 Type 2 diabetes mellitus without complications
CPT/HCPCS: 93005; 85025; 80048; 36415; 83735; 85610; 80076; 84484; 70450; 70496; 70498; 71045; 96375; 96374; 99284; Q9967; J2765; J1200; J1100; J7040

== ENCOUNTER 2022-07-17 11:52 | Emergency (ER) | payer OTHER ==
--- OUTSIDE RECORDS SUMMARY | 2022-07-17 11:59 | XMS REPORT | Continuity of Care Document ---
:1950 Author Organization [facility] t Address [address] [place] [address] Care Team Providers Name Role Phone MARCIAL ZAMUDIO Primary Care Physician Unavailable Marcial Zamudio Attending Clinician Unavailable RADIOLOGY Attending Clinician Unavailable Radiology Attending Clinician Unavailable Doctor Unassigned, [place] Attending Clinician Unavailable Be Silva MD Attending Clinician Only, Keshav Db Test Attending Clinician Unavailable Janice Carmichael Attending Clinician JANICE FOWLER Attending Clinician Unavailable Elenita Humphreys MD Attending Clinician Saleem Louise MD Attending Clinician Lab, Ang - Db Attending Clinician Unavailable SALEEM LOUISE Attending Clinician Unavailable SALEEM LOUISE Attending Clinician Unavailable RENAN MONSALVE Attending Clinician Unavailable Renan Monsalve DO Attending Clinician Willie Garner B Attending Clinician Lab, Adc Fam Pob I Attending Clinician Unavailable JAVI SHANKS Admitting Clinician Unavailable PRINCE MELCHOR Admitting Clinician Unavailable RENAN MONSALVE Admitting Clinician Unavailable Payers Payer Name Policy Type Policy Number Effective Date Expiration Date Ave vela [employer] [id number] 2018spring 00:00:00 [facility] C1 [id number] Common Sp maria ines ing Medicare [facility] Problems Condition Condition Condition Status Onset Resolution Last Treating Co mments Source Name Details Category Date Date Treatment Clinician Date Dyslipidem Dyslipidem Disease Active 2015-08 U corina ia ia 2- ity of 00:00: [place] [address] Medical Branch Prediabete Prediabete Disease Active U nivers s s 9 ity of 00:00: [place] [address] Medical Branch Dizzy Dizzy Disease Active 2014-08 Univers spells spells 2- ity of 00:00: [place] [address] Medical Branch Palpitatio Palpitatio Disease Active 2014-08 U corina ns ns 2- ity of 00:00: [address] Branch Shortness Shortness Disease Active 2014-08 Uni vers of breath of breath 2 ity of 00:00: [place] [address] Medical Branch Atypical Atypical Disease Active 2014-08 Unive rs chest pain chest pain 2 it y of 00:00: [place] [address] Medical Branch Postsurgic Postsurgic Disease Active 2014-08 U corina al al 09-16 ity of [place] [address] [place] [address] Branch [id number] Other Problem Common chronic Spirit pain [facility] Disorder 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 [facility] Kidney Kidney Problem Common mass mass [facility] [id number] History of Problem Co mmon diabetes Spirit mellitus - [facility] [id number] Essential Problem Comm on hypertensi Spirit on [facility] [id number] Gastroesop Problem Co mmon hageal Spirit reflux - CHI disease [facility] esophagiti Medica l s [place] [id number] Primary Problem Commo n osteoarthr Spirit itis, - CHI unspecifie [facility] Acquired Acquired Problem Commo n hypothyroi hypothyroi Sp maria ines dism dism [facility] [id number] Encounter Problem Com mon for Spirit gynecologi - CHI [facility] n without Medical abnormal Center finding [id number] Body mass Problem Com mon index Spirit (BMI) - [facility] 32.0-32.9, [facility] [id number] Other Problem Common obesity Spirit due to - CHI excess calories [facility] [id number] Type 2 Problem Common diabetes Spirit mellitus - CHI with [facility], Medical without Center long-term current use of insulin [id number] Primary Problem Commo n osteoarthr Spirit itis - CHI involving [facility] [id number] Primary Problem Common insomnia Spirit - CHI [facility] [id number] 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, 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 [facility] [id number] JENNY Problem Common (generaliz Spirit ed anxiety - CHI disorder) [facility] [id number] Mixed Problem Common hyperlipid Spirit emia - CHI [facility] [id number] Constipati Problem Com mon on, Spirit unspecifie - CHI d constipati [facility] [id number] Current Problem Common moderate Spirit episode of - CHI major [facility] without Center prior episode Allergies, Adverse Reactions, Alerts Allergy Allergy Status Severity Reaction(s) Onset Inactive Treating Comm ents Source Name Type Date Date Clinician NO KNOWN Drug Active [facility] ALLERGIE Class ity of S [facility] Social History Social Habit Start Date Stop Date Quantity Comments Source Exposure to Not sure [facility] SARS-CoV-2 [facility] (event) Branch History of Common Spirit - Tobacco Use [facility] Sex Assigned At Common Sp maria ines - [facility] Alcohol intake 2021-11-18 2021-11-18 0 /d [facility] 00:00:00 00:00:00 [facility] Tobacco use and 2015-07-15 2015-07-15 Smokeless tobacco Un iversity of exposure 00:00:00 00:00:00 non-user [facility] Smoking Status Start Date Stop Date Source Never Smoker Common Spirit - [facility] Medications Ordered Filled Start Stop Current Ordering Indication Dosage Frequency Signature Comments Components Source Medication Medication Date Date Medication? Clinician (SIG) Name Name gadobenate 2021-08- No [id number] .2mL/kg 0.2 mL/kg, [facility] dimeglumine 08-16 Intravenou i ty of (MULTIHANCE 22:45: 22:43 s, ONCE, 1 [place] -20 mL) 00 :00 dose, On Medical injection [facility] Branch 0.2 mL/kg 06/16/22 at 1745, Routine iopamidol 2021-08- No [id number] 74mL 74 mL, U nivers (ISOVUE 05-15 Intravenou ity o f 370-500 mL) 15:15: 14:27 s, ONCE, 1 [place] injection 00 :00 dose, On Medica l 74 mL Sat Branch 05/15/22 at 1015, Routine Pseudoeph-B Pseudoeph-B 2021- No 5{ml_as QID Pseudoeph- romphen-DM romphen-DM 03-08 _needed Bromphen-D 30-2-10 302-10 00:00: 00:00 } M 30-2-10 MG/5ML MG/5ML 00 :00 MG/5ML Pseudoeph-B Pseudoeph-B 2021- No 5{ml_as QID Pseudoeph- romphen-DM romphen-DM 03-08 _needed Bromphen-D 30-2-10 2-10 00:00: 00:00 } M 30-2-10 MG/5ML MG/5ML 00 :00 MG/5ML amitriptyli Yes [id number] 25mg Take 1 Univers ne 25 mg 3-24 tablet by ity of tablet 00:00: mouth at [place] [address] bedtime. Medical Branch amitriptyli Yes [id number] 25mg Take 1 Univers ne 25 mg 3-24 tablet by ity of tablet 00:00: mouth at [place] [address] bedtime. Medical Branch amitriptyli Yes [id number] 25mg Take 1 Univers ne 25 mg 3-24 tablet by ity of tablet 00:00: mouth at [place] [address] bedtime. Medical Branch amitriptyli Yes [id number] 25mg Take 1 Univers ne 25 mg 3-24 tablet by ity of tablet 00:00: mouth at [place] [address] bedtime. Medical Branch amitriptyli Yes [id number] 25mg Take 1 Univers ne 25 mg 3-24 tablet by ity of tablet 00:00: mouth at [place] [address] bedtime. Medical Branch amitriptyli Yes [id number] 25mg Take 1 Univers ne 25 mg 3-24 tablet by ity of tablet 00:00: mouth at [place] [address] bedtime. Medical Branch amitriptyli 2021-0 Yes [id number] 25mg Take 1 Univers ne 25 mg 3-24 tablet by ity of tablet 00:00: mouth at [place] [address] bedtime. Medical Branch amitriptyli 2-0 Yes [id number] 25mg Take 1 Univers ne 25 mg 3-24 tablet by ity of tablet 00:00: mouth at [place] [address] bedtime. Medical Branch amitriptyli 2-0 Yes [id number] 25mg Take 1 Univers ne 25 mg 3-24 tablet by ity of tablet 00:00: mouth at [place] [address] bedtime. Medical Branch amitriptyli 2021-0 Yes [id number] 25mg Take 1 Univers ne 25 mg 3-24 tablet by ity of tablet 00:00: mouth at [place] [address] bedtime. Medical Branch amitriptyli 2021-0 Yes [id number] 25mg Take 1 Univers ne 25 mg 3-24 tablet by ity of tablet 00:00: mouth at [place] [address] bedtime. Medical Branch amLODIPine 2-0 Yes Univers 10 mg 3-21 ity of tablet 00:00: [place] 00 Medical Branch amLODIPine 2-0 Yes Univers 10 mg 3-21 ity of tablet 00:00: [place] 00 Medical Branch amLODIPine 2-0 Yes Univers 10 mg 3-21 ity of tablet 00:00: [place] 00 Medical Branch amLODIPine 2-0 Yes Univers 10 mg 3-21 ity of tablet 00:00: [place] 00 Medical Branch amLODIPine 2-0 Yes Univers 10 mg 3-21 ity of tablet 00:00: [place] 00 Medical Branch amLODIPine 2022-0 Yes Univers 10 mg 3-21 ity of tablet 00:00: [place] 00 Medical Branch amLODIPine 2022-0 Yes Univers 10 mg 3-21 ity of tablet 00:00: [place] 00 Medical Branch amLODIPine 2022-0 Yes Univers 10 mg 3-21 ity of tablet 00:00: [place] 00 Medical Branch amLODIPine 2022-0 Yes Univers 10 mg 3-21 ity of tablet 00:00: [place] 00 Medical Branch amLODIPine 2-0 Yes Univers 10 mg 3-21 ity of tablet 00:00: [place] 00 Medical Branch amLODIPine 2022-0 Yes Univers 10 mg 3-21 ity of tablet 00:00: [place] 00 Medical Branch amLODIPine 2022-0 Yes Univers 10 mg 3-21 ity of tablet 00:00: [place] 00 Medical Branch ondansetron 2022-0 Yes 4mg Take 4 mg U nivers 4 mg tablet 3-14 by mouth 2 it y of 00:00: (two) [place] 00 times Medical daily as Branch needed. ondansetron 2022-0 Yes 4mg Take 4 mg U nivers 4 mg tablet 3-14 by mouth 2 it y of 00:00: (two) [place] 00 times Medical daily as Branch needed. ondansetron 2022-0 Yes 4mg Take 4 mg U nivers 4 mg tablet 3-14 by mouth 2 it y of 00:00: (two) [place] 00 times Medical daily as Branch needed. ondansetron 2022-0 Yes 4mg Take 4 mg U nivers 4 mg tablet 3-14 by mouth 2 it y of 00:00: (two) [place] 00 times Medical daily as Branch needed. ondansetron 2022-0 Yes 4mg Take 4 mg U nivers 4 mg tablet 3-14 by mouth 2 it y of 00:00: (two) [place] 00 times Medical daily as Branch needed. ondansetron 2022-0 Yes 4mg Take 4 mg U nivers 4 mg tablet 3-14 by mouth 2 it y of 00:00: (two) [place] 00 times Medical daily as Branch needed. ondansetron 2022-0 Yes 4mg Take 4 mg U nivers 4 mg tablet 3-14 by mouth 2 it y of 00:00: (two) [place] 00 times Medical daily as Branch needed. ondansetron 2022-0 Yes 4mg Take 4 mg U nivers 4 mg tablet 3-14 by mouth 2 it y of 00:00: (two) [place] 00 times Medical daily as Branch needed. ondansetron 2022-0 Yes 4mg Take 4 mg U nivers 4 mg tablet 3-14 by mouth 2 it y of 00:00: (two) [place] 00 times Medical daily as Branch needed. ondansetron 2022-0 Yes 4mg Take 4 mg U nivers 4 mg tablet 3-14 by mouth 2 it y of 00:00: (two) [place] 00 times Medical daily as Branch needed. ondansetron 2022-0 Yes 4mg Take 4 mg U nivers 4 mg tablet 3-14 by mouth 2 it y of 00:00: (two) [place] 00 times Medical daily as Branch needed. ondansetron 2021-0 Yes 4mg Take 4 mg U nivers 4 mg tablet 3-14 by mouth 2 it y of 00:00: (two) [place] 00 times Medical daily as Branch needed. losartan-hy Yes 1{tbl} Take 1 Un hitesh drochloroth 2-20 tablet by ity of iazide 00:00: mouth [place] 100-12.5 mg 00 daily. Medica l per tablet Branch losartan-hy Yes 1{tbl} Take 1 Un hitesh drochloroth 2-20 tablet by ity of iazide 00:00: mouth [place] 100-12.5 mg 00 daily. Medica l per tablet Branch losartan-hy Yes 1{tbl} Take 1 Un hitesh drochloroth 2-20 tablet by ity of iazide 00:00: mouth [place] 100-12.5 mg 00 daily. Medica l per tablet Branch losartan-hy Yes 1{tbl} Take 1 Un hitesh drochloroth 2-20 tablet by ity of iazide 00:00: mouth [place] 100-12.5 mg 00 daily. Medica l per tablet Branch losartan-hy Yes 1{tbl} Take 1 Un hitesh drochloroth 2-20 tablet by ity of iazide 00:00: mouth [place] 100-12.5 mg 00 daily. Medica l per tablet Branch losartan-hy 0 Yes 1{tbl} Take 1 Un hitesh drochloroth 2-20 tablet by ity of iazide 00:00: mouth [place] 100-12.5 mg 00 daily. Medica l per tablet Branch losartan-hy 0 Yes 1{tbl} Take 1 Un hitesh drochloroth 2-20 tablet by ity of iazide 00:00: mouth [place] 100-12.5 mg 00 daily. Medica l per tablet Branch losartan-hy 2021-0 Yes 1{tbl} Take 1 Un hitesh drochloroth 2-20 tablet by ity of iazide 00:00: mouth [place] 100-12.5 mg 00 daily. Medica l per tablet Branch losartan-hy 2021-0 Yes 1{tbl} Take 1 Un hitesh drochloroth 2-20 tablet by ity of iazide 00:00: mouth [place] 100-12.5 mg 00 daily. Medica l per tablet Branch losartan-hy 2021-0 Yes 1{tbl} Take 1 Un hitesh drochloroth 2-20 tablet by ity of iazide 00:00: mouth [place] 100-12.5 mg 00 daily. Medica l per tablet Branch losartan-hy 2021-0 Yes 1{tbl} Take 1 Un hitesh drochloroth 2-20 tablet by ity of iazide 00:00: mouth [place] 100-12.5 mg 00 daily. Medica l per tablet Branch losartan-hy 0 Yes 1{tbl} Take 1 Un hitesh drochloroth 2-20 tablet by ity of iazide 00:00: mouth [place] 100-12.5 mg 00 daily. Medica l per tablet Branch SERTraline 0 Yes 50mg Take 50 mg U nivers 50 mg 2-14 by mouth ity of tablet 00:00: daily. [place] [facility] Branch SERTraline 2021-0 Yes 50mg Take 50 mg U nivers 50 mg 2-14 by mouth ity of tablet 00:00: daily. [place] [facility] SERTraline 2021-0 Yes 50mg Take 50 mg U nivers 50 mg 2-14 by mouth ity of tablet 00:00: daily. [place] [facility] SERTraline 2021-0 Yes 50mg Take 50 mg U nivers 50 mg 2-14 by mouth ity of tablet 00:00: daily. [place] [facility] SERTraline 2021-0 Yes 50mg Take 50 mg U nivers 50 mg 2-14 by mouth ity of tablet 00:00: daily. [place] [facility] SERTraline 2021-0 Yes 50mg Take 50 mg U nivers 50 mg 2-14 by mouth ity of tablet 00:00: daily. [place] [facility] SERTraline 2021-0 Yes 50mg Take 50 mg U nivers 50 mg 2-14 by mouth ity of tablet 00:00: daily. [place] [facility] SERTraline 2021-0 Yes 50mg Take 50 mg U nivers 50 mg 2-14 by mouth ity of tablet 00:00: daily. [address] SERTraline 2-0 Yes 50mg Take 50 mg U nivers 50 mg 2-14 by mouth ity of tablet 00:00: daily. [address] SERTraline 2-0 Yes 50mg Take 50 mg U nivers 50 mg 2-14 by mouth ity of tablet 00:00: daily. [address] SERTraline 2-0 Yes 50mg Take 50 mg U nivers 50 mg 2-14 by mouth ity of tablet 00:00: daily. [address] SERTraline 2-0 Yes 50mg Take 50 mg U nivers 50 mg 2-14 by mouth ity of tablet 00:00: daily. [address] Synthroid Synthroid 2-0 No QD 125 MCG 125 MCG 2-03 00:00: 00 Synthroid Synthroid 2022-0 No QD 125 MCG 125 MCG 2-03 00:00: 00 Synthroid Synthroid 2022-0 No QD Synthroid 125 MCG 125 MCG 2-03 125 MCG 00:00: 00 Synthroid Synthroid 2022-0 No QD Synthroid 125 MCG 125 MCG 2-03 125 MCG 00:00: 00 Synthroid Synthroid 2022-0 No QD Synthroid 125 MCG 125 MCG 2-03 125 MCG 00:00: 00 Synthroid Synthroid 2021-1 No QD Synthroid 112 MCG 112 MCG 2-07 112 MCG 00:00: 00 Synthroid Synthroid 2021-1 No QD Synthroid 112 MCG 112 MCG 2-07 112 MCG 00:00: 00 Synthroid Synthroid 2021-1 No QD Synthroid 112 MCG 112 MCG 2-07 112 MCG 00:00: 00 Rocephin Rocephin 2020-0 No 1g Commo n (Ceftriaxon (Ceftriaxon 8-20 S pirit e) e) 00:00: - [facility]I 00 [facility] Rocephin Rocephin 2020-0 No 1g Commo n (Ceftriaxon (Ceftriaxon 8-20 S pirit e) e) 00:00: - [facility]I 00 [facility] Rocephin Rocephin 2020-0 No 1g Commo n (Ceftriaxon (Ceftriaxon 8-20 S pirit e) e) 00:00: - [facility]I 00 [facility] Rocephin Rocephin 2020-0 No 1g Commo n (Ceftriaxon (Ceftriaxon 8-20 S pirit e) e) 00:00: - CHI 00 [facility] Rocephin Rocephin 2020-0 No 1g Commo n (Ceftriaxon (Ceftriaxon 8-20 S pirit e) e) 00:00: - [facility]I 00 [facility] Rocephin Rocephin 2020-0 No 1g Commo n (Ceftriaxon (Ceftriaxon 8-20 S pirit e) e) 00:00: - [facility]I 00 [facility] Rocephin Rocephin 2020-0 No 1g Commo n (Ceftriaxon (Ceftriaxon 8-20 S pirit e) e) 00:00: - [facility]I 00 [facility] Rocephin Rocephin 2020-0 No 1g Commo n (Ceftriaxon (Ceftriaxon 8-20 S pirit e) e) 00:00: - [facility]I 00 [facility] Rocephin Rocephin 2020-0 No 1g Commo n (Ceftriaxon (Ceftriaxon 8-20 S pirit e) e) 00:00: - [facility]I 00 [facility] Rocephin Rocephin 2020-0 No 1g Commo n (Ceftriaxon (Ceftriaxon 8-20 S pirit e) e) 00:00: - CHI 00 [facility] Rocephin Rocephin 2020-0 No 1g Commo n (Ceftriaxon (Ceftriaxon 8-20 S pirit e) e) 00:00: - CHI 00 [facility] Rocephin Rocephin 2020-0 No 1g Commo n (Ceftriaxon (Ceftriaxon 8-20 S pirit e) e) 00:00: - [facility]I 00 [facility] Rocephin Rocephin 2020-0 No 1g Commo n (Ceftriaxon (Ceftriaxon 8-20 S pirit e) e) 00:00: - CHI 00 [facility] Ondansetron Ondansetron 2019-0 Yes Marcial 1 tablet Common HCl HCl 7-24 Zamudio Spirit 00:00: - CHI 00 [facility] Jardiance Jardiance 2020-0 Yes Marcial 1 tablet Common 7-24 Zamudio Spirit 00:00: - CHI 00 [facility] MetFORMIN MetFORMIN 2019-0 Yes Marcial 2 tablets Common HCl ER HCl ER 7-14 Zamudio with meal Spiri t 00:00: - CHI 00 [facility] Tradjenta Tradjenta 0 Yes Marcial 1 tablet Common 7-14 Zamudio Spirit 00:00: - CHI 00 [facility] Restasis Restasis Yes Marcial 1 drop C ommon 5-28 Zamudio into Spirit 00:00: affected - CHI 00 eye as [facility] Restasis Restasis No 1{drop_ BID Restasis 0.05 % 0.05 % 5-28 into_af 0.05 % 00:00: fected_ 00 eye_as_ needed} Restasis Restasis No 1{drop_ BID Restasis 0.05 % 0.05 % 5-28 into_af 0.05 % 00:00: fected_ 00 eye_as_ needed} Restasis Restasis No 1{drop_ BID Restasis 0.05 % 0.05 % 5-28 into_af 0.05 % 00:00: fected_ 00 eye_as_ needed} Restasis Restasis No 1{drop_ BID Restasis 0.05 % 0.05 % 5-28 into_af 0.05 % 00:00: fected_ 00 eye_as_ needed} Nystatin Nystatin Yes Marcial 1 Com mon 03-20 Zamudio applicatio Spirit 00:00: n to - CHI 00 affected [facility] Nystatin Nystatin No 1{appli BID Nystatin 255549 704668 8-06 cation_ 298366 UNIT/GM UNIT/GM 00:00: to_affe UNIT/GM 00 cted_ar ea} Nystatin Nystatin No 1{appli BID Nystatin 108003 162774 8-06 cation_ 251736 UNIT/GM UNIT/GM 00:00: to_affe UNIT/GM 00 cted_ar ea} Nystatin Nystatin No 1{appli BID Nystatin 634361 680827 8-06 cation_ 542532 UNIT/GM UNIT/GM 00:00: to_affe UNIT/GM 00 cted_ar ea} Nystatin Nystatin 2019-0 No 1{appli BID Nystatin 779626 458025 8-06 cation_ 308391 UNIT/GM UNIT/GM 00:00: to_affe UNIT/GM 00 cted_ar ea} omeprazole 2019-0 Yes [id number] 40mg Take 2 Univers 20 mg 2-13 tablets by ity of tablet 00:00: mouth [place] 00 daily. Medical Branch ondansetron 2019- Yes [id number] 4mg Take 1 Univers (ZOFRAN 2-13 tablet by ity of ODT) 4 mg 00:00: mouth [place] disintegrat 00 every 8 Medic al ing tablet (eight) Branch hours as needed for Nausea and Vomiting (N/V). omeprazole 2019-0 Yes [id number] 40mg Take 2 Univers 20 mg 2-13 tablets by ity of tablet 00:00: mouth [place] 00 daily. Medical Branch ondansetron Yes [id number] 4mg Take 1 Univers (ZOFRAN 2-13 tablet by ity of ODT) 4 mg 00:00: mouth [place] disintegrat 00 every 8 Medic al ing tablet (eight) Branch hours as needed for Nausea and Vomiting (N/V). omeprazole 2019-0 Yes [id number] 40mg Take 2 Univers 20 mg 2-13 tablets by ity of tablet 00:00: mouth [place] 00 daily. Medical Branch ondansetron Yes [id number] 4mg Take 1 Univers (ZOFRAN 2-13 tablet by ity of ODT) 4 mg 00:00: mouth [place] disintegrat 00 every 8 Medic al ing tablet (eight) Branch hours as needed for Nausea and Vomiting (N/V). omeprazole 2019-0 Yes [id number] 40mg Take 2 Univers 20 mg 2-13 tablets by ity of tablet 00:00: mouth [place] 00 daily. Medical Branch ondansetron 2019- Yes [id number] 4mg Take 1 Univers (ZOFRAN 2-13 tablet by ity of ODT) 4 mg 00:00: mouth [place] disintegrat 00 every 8 Medic al ing tablet (eight) Branch hours as needed for Nausea and Vomiting (N/V). omeprazole 2019-0 Yes [id number] 40mg Take 2 Univers 20 mg 2-13 tablets by ity of tablet 00:00: mouth [place] 00 daily. Medical Branch ondansetron 2018-0 Yes [id number] 4mg Take 1 Univers (ZOFRAN 2-13 tablet by ity of ODT) 4 mg 00:00: mouth [place] disintegrat 00 every 8 Medic al ing tablet (eight) Branch hours as needed for Nausea and Vomiting (N/V). omeprazole 2019-0 Yes [id number] 40mg Take 2 Univers 20 mg 2-13 tablets by ity of tablet 00:00: mouth [place] 00 daily. Medical Branch ondansetron 2019-0 Yes [id number] 4mg Take 1 Univers (ZOFRAN 2-13 tablet by ity of ODT) 4 mg 00:00: mouth [place] disintegrat 00 every 8 Medic al ing tablet (eight) Branch hours as needed for Nausea and Vomiting (N/V). omeprazole 2019-0 Yes [id number] 40mg Take 2 Univers 20 mg 2-13 tablets by ity of tablet 00:00: mouth [place] 00 daily. Medical Branch ondansetron 2019-0 Yes [id number] 4mg Take 1 Univers (ZOFRAN 2-13 tablet by ity of ODT) 4 mg 00:00: mouth [place] disintegrat 00 every 8 Medic al ing tablet (eight) Branch hours as needed for Nausea and Vomiting (N/V). omeprazole 2019-0 Yes [id number] 40mg Take 2 Univers 20 mg 2-13 tablets by ity of tablet 00:00: mouth [place] 00 daily. Medical Branch ondansetron 2019-0 Yes [id number] 4mg Take 1 Univers (ZOFRAN 2-13 tablet by ity of ODT) 4 mg 00:00: mouth [place] disintegrat 00 every 8 Medic al ing tablet (eight) Branch hours as needed for Nausea and Vomiting (N/V). omeprazole 2019-0 Yes [id number] 40mg Take 2 Univers 20 mg 2-13 tablets by ity of tablet 00:00: mouth [place] 00 daily. Medical Branch ondansetron 2019-0 Yes [id number] 4mg Take 1 Univers (ZOFRAN 2-13 tablet by ity of ODT) 4 mg 00:00: mouth [place] disintegrat 00 every 8 Medic al ing tablet (eight) Branch hours as needed for Nausea and Vomiting (N/V). omeprazole 2019-0 Yes [id number] 40mg Take 2 Univers 20 mg 2-13 tablets by ity of tablet 00:00: mouth [place] 00 daily. Medical Branch ondansetron Yes [id number] 4mg Take 1 Univers (ZOFRAN 2-13 tablet by ity of ODT) 4 mg 00:00: mouth [place] disintegrat 00 every 8 Medic al ing tablet (eight) Branch hours as needed for Nausea and Vomiting (N/V). omeprazole Yes [id number] 40mg Take 2 Univers 20 mg 2-13 tablets by ity of tablet 00:00: mouth [place] 00 daily. Medical Branch ondansetron Yes [id number] 4mg Take 1 Univers (ZOFRAN 2-13 tablet by ity of ODT) 4 mg 00:00: mouth [place] disintegrat 00 every 8 Medic al ing tablet (eight) Branch hours as needed for Nausea and Vomiting (N/V). omeprazole Yes [id number] 40mg Take 2 Univers 20 mg 2-13 tablets by ity of tablet 00:00: mouth [place] 00 daily. Medical Branch ondansetron Yes [id number] 4mg Take 1 Univers (ZOFRAN 2-13 tablet by ity of ODT) 4 mg 00:00: mouth [place] disintegrat 00 every 8 Medic al ing tablet (eight) Branch hours as needed for Nausea and Vomiting (N/V). omeprazole Yes [id number] 40mg Take 2 Univers 20 mg 2-13 tablets by ity of tablet 00:00: mouth [place] 00 daily. Medical Branch ondansetron Yes [id number] 4mg Take 1 Univers (ZOFRAN 2-13 tablet by ity of ODT) 4 mg 00:00: mouth [place] disintegrat 00 every 8 Medic al ing tablet (eight) Branch hours as needed for Nausea and Vomiting (N/V). Diclofenac Yes [id number] Take 2-4 Univers Sodium 8-16 grams ity of (VOLTAREN) 00:00: three [place] 1 % gel 00 times a Medical day as Branch needed for pain levothyroxi Yes [id number] 100ug Take 1 Univers ne 100 mcg 8-16 tablet by ity of tablet 00:00: mouth [place] 00 every Medical morning. Branch lisinopril Yes [id number] 10mg Take 1 U nivers 10 mg 8-16 tablet by ity of tablet 00:00: mouth [place] 00 daily. Medical Branch Diclofenac 2018-0 Yes [id number] Take 2-4 Univers Sodium 8-16 grams ity of (VOLTAREN) 00:00: three [place] 1 % gel 00 times a Medical day as Branch needed for pain levothyroxi 2017- Yes [id number] 100ug Take 1 Univers ne 100 mcg 8-16 tablet by ity of tablet 00:00: mouth [place] 00 every Medical morning. Branch lisinopril 2017- Yes [id number] 10mg Take 1 U nivers 10 mg 8-16 tablet by ity of tablet 00:00: mouth [place] 00 daily. Medical Branch Diclofenac 2017- Yes [id number] Take 2-4 Univers Sodium 8-16 grams ity of (VOLTAREN) 00:00: three [place] 1 % gel 00 times a Medical day as Branch needed for pain levothyroxi Yes [id number] 100ug Take 1 Univers ne 100 mcg 8-16 tablet by ity of tablet 00:00: mouth [place] 00 every Medical morning. Branch lisinopril 2017- Yes [id number] 10mg Take 1 U nivers 10 mg 8-16 tablet by ity of tablet 00:00: mouth [place] 00 daily. Medical Branch Diclofenac 2017- Yes [id number] Take 2-4 Univers Sodium 8-16 grams ity of (VOLTAREN) 00:00: three [place] 1 % gel 00 times a Medical day as Branch needed for pain levothyroxi 2017- Yes [id number] 100ug Take 1 Univers ne 100 mcg 8-16 tablet by ity of tablet 00:00: mouth [place] 00 every Medical morning. Branch lisinopril 2017-0 Yes [id number] 10mg Take 1 [facility] nivers 10 mg 8-16 tablet by [facility] of tablet 00:00: mouth [place] 00 daily. [facility] Diclofenac 2017- Yes [id number] Take 2-4 [facility] Sodium 8-16 grams ity of (VOLTAREN) 00:00: three [place] 1 % gel 00 times a Medical day as Branch needed for pain levothyroxi 2017-0 Yes [id number] 100ug Take 1 [facility] ne 100 mcg 8-16 tablet by it[facility] of tablet 00:00: mouth [place] 00 every Medical morning. Branch lisinopril 2017- Yes [id number] 10mg Take 1 [facility] nivers 10 mg 8-16 tablet by it[facility] of tablet 00:00: mouth [place] 00 daily. [facility] Diclofenac 2018-0 Yes [id number] Take 2-4 [facility] Sodium 8-16 grams ity of (VOLTAREN) 00:00: three [place] 1 % gel 00 times a Medical day as Branch needed for pain levothyroxi 2017- Yes [id number] 100ug Take 1 [facility] ne 100 mcg 8-16 tablet by it[facility] of tablet 00:00: mouth [place] 00 every Medical morning. Branch lisinopril 2017- Yes [id number] 10mg Take 1 [facility] nivers 10 mg 8-16 tablet by it[facility] of tablet 00:00: mouth [place] 00 daily. [facility] Diclofenac 2017- Yes [id number] Take 2-4 [facility] Sodium 8-16 grams ity of (VOLTAREN) 00:00: three [place] 1 % gel 00 times a Medical day as Branch needed for pain levothyroxi Yes [id number] 100ug Take 1 [facility] ne 100 mcg 8-16 tablet by ity of tablet 00:00: mouth [place] 00 every Medical morning. Branch lisinopril 2017- Yes [id number] 10mg Take 1 [facility] nivers 10 mg 8-16 tablet by it[facility] of tablet 00:00: mouth [place] 00 daily. [facility] Branch Diclofenac 2017- Yes [id number] Take 2-4 [facility] Sodium 8-16 grams ity of (VOLTAREN) 00:00: three [place] 1 % gel 00 times a Medical day as Branch needed for pain levothyroxi 2017- Yes [id number] 100ug Take 1 [facility] ne 100 mcg 8-16 tablet by it[facility] of tablet 00:00: mouth [place] 00 every Medical morning. Branch lisinopril 2017-0 Yes [id number] 10mg Take 1 [facility] nivers 10 mg 8-16 tablet by [facility] of tablet 00:00: mouth [place] 00 daily. Medical Branch Diclofenac 2017- Yes [id number] Take 2-4 [facility] Sodium 8-16 grams ity of (VOLTAREN) 00:00: three [place] 1 % gel 00 times a Medical day as Branch needed for pain levothyroxi 2017-0 Yes [id number] 100ug Take 1 [facility] ne 100 mcg 8-16 tablet by it[facility] of tablet 00:00: mouth [place] 00 every Medical morning. Branch lisinopril 2017- Yes [id number] 10mg Take 1 [facility] nivers 10 mg 8-16 tablet by it[facility] of tablet 00:00: mouth [place] 00 daily. Medical Branch Diclofenac 2018-0 Yes [id number] Take 2-4 [facility] Sodium 8-16 grams ity of (VOLTAREN) 00:00: three [place] 1 % gel 00 times a Medical day as Branch needed for pain levothyroxi 2017- Yes [id number] 100ug Take 1 [facility] ne 100 mcg 8-16 tablet by it[facility] of tablet 00:00: mouth [place] 00 every Medical morning. Branch lisinopril 2017- Yes [id number] 10mg Take 1 [facility] nivers 10 mg 8-16 tablet by [facility] of tablet 00:00: mouth [place] 00 daily. Medical Branch Diclofenac 2017- Yes [id number] Take 2-4 [facility] Sodium 8-16 grams ity of (VOLTAREN) 00:00: three [place] 1 % gel 00 times a Medical day as Branch needed for pain levothyroxi Yes [id number] 100ug Take 1 [facility] ne 100 mcg 8-16 tablet by it[facility] of tablet 00:00: mouth [place] 00 every Medical morning. Branch lisinopril 2017- Yes [id number] 10mg Take 1 [facility] 10 mg 8-16 tablet by [facility] of tablet 00:00: mouth [place] 00 daily. Medical Branch Diclofenac 2017- Yes [id number] Take 2-4 [facility] Sodium 8-16 grams ity of (VOLTAREN) 00:00: three [place] 1 % gel 00 times a Medical day as Branch needed for pain levothyroxi 2017- Yes [id number] 100ug Take 1 [facility] ne 100 mcg 8-16 tablet by it[facility] of tablet 00:00: mouth [place] 00 every Medical morning. Branch lisinopril 2017-0 Yes [id number] 10mg Take 1 [facility] n[facility] 10 mg 8-16 tablet by [facility] of tablet 00:00: mouth [place] 00 daily. Medical Branch Diclofenac 2017- Yes [id number] Take 2-4 [facility] Sodium 8-16 grams ity of (VOLTAREN) 00:00: three [place] 1 % gel 00 times a Medical day as Branch needed for pain levothyroxi 2017-0 Yes [id number] 100ug Take 1 [facility] ne 100 mcg 8-16 tablet by ity of tablet 00:00: mouth [place] 00 every Medical morning. Branch lisinopril 2017- Yes [id number] 10mg Take 1 [facility] n[facility] 10 mg 8-16 tablet by it[facility] of tablet 00:00: mouth [place] 00 daily. Medical Branch atorvasta 2017-0 Yes [id number] 20mg Take 1 [facility] n 20 mg 1-17 tablet by it[facility] of tablet 00:00: mouth at [place] 00 bedtime. Medical Branch atorvasta 2016-0 Yes [id number] 20mg Take 1 [facility] n 20 mg 1-17 tablet by ity of tablet 00:00: mouth at [place] 00 bedtime. Medical Branch atorvasta 2016-0 Yes [id number] 20mg Take 1 [facility] n 20 mg 1-17 tablet by ity of tablet 00:00: mouth at [place] [address] bedtime. Medical Branch atorvasta 0 Yes [id number] 20mg Take 1 [facility] n 20 mg 1-17 tablet by ity of tablet 00:00: mouth at [place] 00 bedtime. Medical Branch atorvasta 0 Yes [id number] 20mg Take 1 [facility] n 20 mg 1-17 tablet by ity of tablet 00:00: mouth at [place] [address] bedtime. Medical Branch atorvasta 0 Yes [id number] 20mg Take 1 [facility] n 20 mg 1-17 tablet by ity of tablet 00:00: mouth at [place] [address] bedtime. Medical Branch atorvasta 0 Yes [id number] 20mg Take 1 [facility] n 20 mg 1-17 tablet by ity of tablet 00:00: mouth at [place] [address] bedtime. Medical Branch atorvasta 0 Yes [id number] 20mg Take 1 [facility] n 20 mg 1-17 tablet by ity of tablet 00:00: mouth at [place] [address] bedtime. Medical Branch atorvasta 2016-0 Yes [id number] 20mg Take 1 [facility] n 20 mg 1-17 tablet by ity of tablet 00:00: mouth at [place] [address] bedtime. Medical Branch atorvasta 0 Yes [id number] 20mg Take 1 [facility] n 20 mg 1-17 tablet by ity of tablet 00:00: mouth at [place] [address] bedtime. Medical Branch atorvasta 0 Yes [id number] 20mg Take 1 [facility] n 20 mg 1-17 tablet by ity of tablet 00:00: mouth at [place] [address] bedtime. [facility] Branch atorvasta 0 Yes [id number] 20mg Take 1 [facility] n 20 mg 1-17 tablet by ity of tablet 00:00: mouth at [place] 00 bedtime. Medical Branch atorvastati 2017-0 Yes [id number] 20mg Take 1 [facility] n 20 mg 1-17 tablet by ity of tablet 00:00: mouth at [place] 00 bedtime. Medical Branch Lipitor Lipitor Yes Marcial 1 tablet Com mon [facility] Lisinopril Lisinopril Yes Marcial 1 tablet Common [facility] Prilosec Prilosec Yes Marcial 1 tablet C ommon OTC OTC [facility] Levothyroxi Levothyroxi Yes Marcial 1 tablet Common ne Sodium ne Sodium Zamudio on an Spi rit empty - [facility] stomach in [facility] metFORMIN metFORMIN No BID metFORMIN HCl ER 500 HCl ER 500 HCl ER 500 MG MG MG Losartan Losartan No 1{table QD Losartan Potassium-H Potassium-H t} Potassium- CTZ CTZ HCTZ 100-12.5 MG 100-12.5 MG 100-12.5 MG Omeprazole Omeprazole No QD Omeprazole 40 MG 40 MG 40 MG Lipitor 10 Lipitor 10 No 1{table QD Lipitor 10 MG MG t} MG Levothyroxi Levothyroxi No Levothyrox ne Sodium ne Sodium ine Sodium 100 MCG 100 MCG 100 MCG PriLOSEC PriLOSEC No 1{table QD PriLOSEC OTC 20 MG OTC 20 MG t} OTC 20 MG Zoloft 50 Zoloft 50 No 1{table QD Zoloft 50 MG MG t} MG Omeprazole Omeprazole No Omeprazole 40 MG 40 MG 40 MG Losartan Losartan No Losartan Potassium-H Potassium-H Potassium- CTZ CTZ HCTZ 100-12.5 MG 100-12.5 MG 100-12.5 MG glipiZIDE glipiZIDE No 1{table QD glipiZIDE ER 5 MG ER 5 MG t_with_ ER 5 MG food} Zoloft 50 Zoloft 50 No 1{table QD Zoloft 50 MG MG t} MG Ondansetron Ondansetron No 1{table Ondansetro HCl 4 MG HCl 4 MG t} n HCl 4 MG Lipitor 10 Lipitor 10 No 1{table QD Lipitor 10 MG MG t} MG Lipitor 10 Lipitor 10 No 1{table QD Lipitor 10 MG MG t} MG metFORMIN metFORMIN No metFORMIN HCl ER 500 HCl ER 500 HCl ER 500 MG MG MG PriLOSEC PriLOSEC No 1{table QD PriLOSEC OTC 20 MG OTC 20 MG t} OTC 20 MG amLODIPine amLODIPine No amLODIPine Besylate 5 Besylate 5 Besylate 5 MG MG MG traZODone traZODone No 1{table QD traZODone HCl 100 MG HCl 100 MG t_at_be HCl 100 MG dtime} glipiZIDE glipiZIDE No 1{table QD glipiZIDE ER 5 MG ER 5 MG t_with_ ER 5 MG food} Levothyroxi Levothyroxi No Levothyrox ne Sodium ne Sodium ine Sodium 100 MCG 100 MCG 100 MCG metFORMIN metFORMIN No BID metFORMIN HCl ER 500 HCl ER 500 HCl ER 500 MG MG MG Omeprazole Omeprazole No Omeprazole 40 MG 40 MG 40 MG metFORMIN metFORMIN No BID metFORMIN HCl ER 500 HCl ER 500 HCl ER 500 MG MG MG glipiZIDE glipiZIDE No 1{table QD glipiZIDE ER 5 MG ER 5 MG t_with_ ER 5 MG food} Zoloft 50 Zoloft 50 No 1{table QD Zoloft 50 MG MG t} MG PriLOSEC PriLOSEC No 1{table QD PriLOSEC OTC 20 MG OTC 20 MG t} OTC 20 MG Ondansetron Ondansetron No 1{table Ondansetro HCl 4 MG HCl 4 MG t} n HCl 4 MG Lipitor 10 Lipitor 10 No 1{table QD Lipitor 10 MG MG t} MG metFORMIN metFORMIN No metFORMIN HCl ER 500 HCl ER 500 HCl ER 500 MG MG MG Losartan Losartan No Losartan Potassium-H Potassium-H Potassium- CTZ CTZ HCTZ 100-12.5 MG 100-12.5 MG 100-12.5 MG glipiZIDE glipiZIDE No 1{table QD glipiZIDE ER 5 MG ER 5 MG t_with_ ER 5 MG food} traZODone traZODone No 1{table QD traZODone HCl 100 MG HCl 100 MG t_at_be HCl 100 MG dtime} Atorvastati Atorvastati No Atorvastat n Calcium n Calcium in Calcium 10 MG 10 MG 10 MG Levothyroxi Levothyroxi No Levothyrox ne Sodium ne Sodium ine Sodium 100 MCG 100 MCG 100 MCG amLODIPine amLODIPine No amLODIPine Besylate 5 Besylate 5 Besylate 5 MG MG MG Omeprazole Omeprazole No Omeprazole 40 MG 40 MG 40 MG metFORMIN metFORMIN No BID metFORMIN HCl ER 500 HCl ER 500 HCl ER 500 MG MG MG glipiZIDE glipiZIDE No 1{table QD glipiZIDE ER 5 MG ER 5 MG t_with_ ER 5 MG food} Zoloft 50 Zoloft 50 No 1{table QD Zoloft 50 MG MG t} MG PriLOSEC PriLOSEC No 1{table QD PriLOSEC OTC 20 MG OTC 20 MG t} OTC 20 MG Ondansetron Ondansetron No 1{table Ondansetro HCl 4 MG HCl 4 MG t} n HCl 4 MG Lipitor 10 Lipitor 10 No 1{table QD Lipitor 10 MG MG t} MG metFORMIN metFORMIN No metFORMIN HCl ER 500 HCl ER 500 HCl ER 500 MG MG MG Losartan Losartan No Losartan Potassium-H Potassium-H Potassium- CTZ CTZ HCTZ 100-12.5 MG 100-12.5 MG 100-12.5 MG glipiZIDE glipiZIDE No 1{table QD glipiZIDE ER 5 MG ER 5 MG t_with_ ER 5 MG food} traZODone traZODone No 1{table QD traZODone HCl 100 MG HCl 100 MG t_at_be HCl 100 MG dtime} Atorvastati Atorvastati No Atorvastat n Calcium n Calcium in Calcium 10 MG 10 MG 10 MG Levothyroxi Levothyroxi No Levothyrox ne Sodium ne Sodium ine Sodium 100 MCG 100 MCG 100 MCG amLODIPine amLODIPine No amLODIPine Besylate 5 Besylate 5 Besylate 5 MG MG MG Omeprazole Omeprazole No QD Omeprazole 40 MG 40 MG 40 MG Synthroid Synthroid No QD Synthroid 112 MCG 112 MCG 112 MCG amLODIPine amLODIPine No 1{table QD amLODIPine Besylate 5 Besylate 5 t} Besylate 5 MG MG MG PriLOSEC PriLOSEC No 1{table QD PriLOSEC OTC 20 MG OTC 20 MG t} OTC 20 MG Zoloft 50 Zoloft 50 No 1{table QD Zoloft 50 MG MG t} MG traZODone traZODone No 1{table QD traZODone HCl 100 MG HCl 100 MG t_at_be HCl 100 MG dtime} glipiZIDE glipiZIDE No 1{table QD glipiZIDE ER 5 MG ER 5 MG t_with_ ER 5 MG food} Ondansetron Ondansetron No 1{table Ondansetro HCl 4 MG HCl 4 MG t} n HCl 4 MG metFORMIN metFORMIN No BID metFORMIN HCl ER 500 HCl ER 500 HCl ER 500 MG MG MG Lipitor 10 Lipitor 10 No 1{table QD Lipitor 10 MG MG t} MG Losartan Losartan No 1{table QD Losartan Potassium-H Potassium-H t} Potassium- CTZ CTZ HCTZ 100-12.5 MG 100-12.5 MG 100-12.5 MG Omeprazole Omeprazole No QD Omeprazole 40 MG 40 MG 40 MG Synthroid Synthroid No QD Synthroid 112 MCG 112 MCG 112 MCG amLODIPine amLODIPine No 1{table QD amLODIPine Besylate 5 Besylate 5 t} Besylate 5 MG MG MG PriLOSEC PriLOSEC No 1{table QD PriLOSEC OTC 20 MG OTC 20 MG t} OTC 20 MG Zoloft 50 Zoloft 50 No 1{table QD Zoloft 50 MG MG t} MG traZODone traZODone No 1{table QD traZODone HCl 100 MG HCl 100 MG t_at_be HCl 100 MG dtime} glipiZIDE glipiZIDE No 1{table QD glipiZIDE ER 5 MG ER 5 MG t_with_ ER 5 MG food} Ondansetron Ondansetron No 1{table Ondansetro HCl 4 MG HCl 4 MG t} n HCl 4 MG metFORMIN metFORMIN No BID metFORMIN HCl ER 500 HCl ER 500 HCl ER 500 MG MG MG Lipitor 10 Lipitor 10 No 1{table QD Lipitor 10 MG MG t} MG Losartan Losartan No 1{table QD Losartan Potassium-H Potassium-H t} Potassium- CTZ CTZ HCTZ 100-12.5 MG 100-12.5 MG 100-12.5 MG Omeprazole Omeprazole No QD 40 MG 40 MG amLODIPine amLODIPine No 1{table QD Besylate 5 Besylate 5 t} MG MG PriLOSEC PriLOSEC No 1{table QD OTC 20 MG OTC 20 MG t} Zoloft 50 Zoloft 50 No 1{table QD MG MG t} traZODone traZODone No 1{table QD HCl 100 MG HCl 100 MG t_at_be dtime} glipiZIDE glipiZIDE No 1{table QD ER 5 MG ER 5 MG t_with_ food} Ondansetron Ondansetron No 1{table HCl 4 MG HCl 4 MG t} metFORMIN metFORMIN No BID HCl ER 500 HCl ER 500 MG MG Lipitor 10 Lipitor 10 No 1{table QD MG MG t} Losartan Losartan No 1{table QD Potassium-H Potassium-H t} CTZ CTZ 100-12.5 MG 100-12.5 MG Omeprazole Omeprazole No QD 40 MG 40 MG amLODIPine amLODIPine No 1{table QD Besylate 5 Besylate 5 t} MG MG PriLOSEC PriLOSEC No 1{table QD OTC 20 MG OTC 20 MG t} Zoloft 50 Zoloft 50 No 1{table QD MG MG t} traZODone traZODone No 1{table QD HCl 100 MG HCl 100 MG t_at_be dtime} glipiZIDE glipiZIDE No 1{table QD ER 5 MG ER 5 MG t_with_ food} Ondansetron Ondansetron No 1{table HCl 4 MG HCl 4 MG t} metFORMIN metFORMIN No BID HCl ER 500 HCl ER 500 MG MG Lipitor 10 Lipitor 10 No 1{table QD MG MG t} Losartan Losartan No 1{table QD Potassium-H Potassium-H t} CTZ CTZ 100-12.5 MG 100-12.5 MG Omeprazole Omeprazole No QD Omeprazole 40 MG 40 MG 40 MG metFORMIN metFORMIN No BID metFORMIN HCl ER 500 HCl ER 500 HCl ER 500 MG MG MG Sertraline Sertraline No Sertraline HCl 50 MG HCl 50 MG HCl 50 MG glipiZIDE glipiZIDE No 1{table QD glipiZIDE ER 5 MG ER 5 MG t_with_ ER 5 MG food} Synthroid Synthroid No QD Synthroid 125 MCG 125 MCG 125 MCG Losartan Losartan No 1{table QD Losartan Potassium-H Potassium-H t} Potassium- CTZ CTZ HCTZ 100-12.5 MG 100-12.5 MG 100-12.5 MG Carvedilol Carvedilol No 1{table BID Carvedilol 12.5 MG 12.5 MG t_with_ 12.5 MG food} amLODIPine amLODIPine No amLODIPine Besylate 5 Besylate 5 Besylate 5 MG MG MG Ondansetron Ondansetron No 1{table Ondansetro HCl 4 MG HCl 4 MG t} n HCl 4 MG Lipitor 10 Lipitor 10 No 1{table QD Lipitor 10 MG MG t} MG PriLOSEC PriLOSEC No 1{table QD PriLOSEC OTC 20 MG OTC 20 MG t} OTC 20 MG amLODIPine amLODIPine No amLODIPine Besylate 5 Besylate 5 Besylate 5 MG MG MG PriLOSEC PriLOSEC No 1{table QD PriLOSEC OTC 20 MG OTC 20 MG t} OTC 20 MG Losartan Losartan No 1{table QD Losartan Potassium-H Potassium-H t} Potassium- CTZ CTZ HCTZ 100-12.5 MG 100-12.5 MG 100-12.5 MG glipiZIDE glipiZIDE No 1{table QD glipiZIDE ER 5 MG ER 5 MG t_with_ ER 5 MG food} Carvedilol Carvedilol No 1{table BID Carvedilol 12.5 MG 12.5 MG t_with_ 12.5 MG food} Lipitor 10 Lipitor 10 No 1{table QD Lipitor 10 MG MG t} MG metFORMIN metFORMIN No BID metFORMIN HCl ER 500 HCl ER 500 HCl ER 500 MG MG MG Synthroid Synthroid No QD Synthroid 125 MCG 125 MCG 125 MCG Ondansetron Ondansetron No 1{table Ondansetro HCl 4 MG HCl 4 MG t} n HCl 4 MG amLODIPine amLODIPine No 1{table QD amLODIPine Besylate 5 Besylate 5 t} Besylate 5 MG MG MG Sertraline Sertraline No Sertraline HCl 50 MG HCl 50 MG HCl 50 MG Omeprazole Omeprazole No QD Omeprazole 40 MG 40 MG 40 MG Zoloft 50 Zoloft 50 No 1{table QD Zoloft 50 MG MG t} MG Lipitor 10 Lipitor 10 No 1{table QD Lipitor 10 MG MG t} MG metFORMIN metFORMIN No BID metFORMIN HCl ER 500 HCl ER 500 HCl ER 500 MG MG MG glipiZIDE glipiZIDE No 1{table QD glipiZIDE ER 5 MG ER 5 MG t_with_ ER 5 MG food} PriLOSEC PriLOSEC No 1{table QD PriLOSEC OTC 20 MG OTC 20 MG t} OTC 20 MG Losartan Losartan No 1{table QD Losartan Potassium-H Potassium-H t} Potassium- CTZ CTZ HCTZ 100-12.5 MG 100-12.5 MG 100-12.5 MG amLODIPine amLODIPine No 1{table QD amLODIPine Besylate 5 Besylate 5 t} Besylate 5 MG MG MG Carvedilol Carvedilol No 1{table BID Carvedilol 12.5 MG 12.5 MG t_with_ 12.5 MG food} Omeprazole Omeprazole No QD Omeprazole 40 MG 40 MG 40 MG Synthroid Synthroid No QD Synthroid 125 MCG 125 MCG 125 MCG amLODIPine amLODIPine No amLODIPine Besylate 5 Besylate 5 Besylate 5 MG MG MG Sertraline Sertraline No Sertraline HCl 50 MG HCl 50 MG HCl 50 MG Ondansetron Ondansetron No 1{table Ondansetro HCl 4 MG HCl 4 MG t} n HCl 4 MG Zoloft 50 Zoloft 50 No 1{table QD Zoloft 50 MG MG t} MG metFORMIN metFORMIN No BID metFORMIN HCl ER 500 HCl ER 500 HCl ER 500 MG MG MG Sertraline Sertraline No Sertraline HCl 50 MG HCl 50 MG HCl 50 MG Lipitor 10 Lipitor 10 No 1{table QD Lipitor 10 MG MG t} MG Omeprazole Omeprazole No QD Omeprazole 40 MG 40 MG 40 MG Ondansetron Ondansetron No 1{table Ondansetro HCl 4 MG HCl 4 MG t} n HCl 4 MG glipiZIDE glipiZIDE No 1{table QD glipiZIDE ER 5 MG ER 5 MG t_with_ ER 5 MG food} amLODIPine amLODIPine No amLODIPine Besylate 5 Besylate 5 Besylate 5 MG MG MG amLODIPine amLODIPine No 1{table QD amLODIPine Besylate 5 Besylate 5 t} Besylate 5 MG MG MG Levothyroxi Levothyroxi No Levothyrox ne Sodium ne Sodium ine Sodium 100 MCG 100 MCG 100 MCG PriLOSEC PriLOSEC No 1{table QD PriLOSEC OTC 20 MG OTC 20 MG t} OTC 20 MG Carvedilol Carvedilol No 1{table BID Carvedilol 12.5 MG 12.5 MG t_with_ 12.5 MG food} Synthroid Synthroid No QD Synthroid 125 MCG 125 MCG 125 MCG Losartan Losartan No 1{table QD Losartan Potassium-H Potassium-H t} Potassium- CTZ CTZ HCTZ 100-12.5 MG 100-12.5 MG 100-12.5 MG Levothyroxi Levothyroxi No Levothyrox ne Sodium ne Sodium ine Sodium 125 MCG 125 MCG 125 MCG Zoloft 50 Zoloft 50 No 1{table QD Zoloft 50 MG MG t} MG metFORMIN metFORMIN No BID metFORMIN HCl ER 500 HCl ER 500 HCl ER 500 MG MG MG Sertraline Sertraline No Sertraline HCl 50 MG HCl 50 MG HCl 50 MG Lipitor 10 Lipitor 10 No 1{table QD Lipitor 10 MG MG t} MG Omeprazole Omeprazole No QD Omeprazole 40 MG 40 MG 40 MG Ondansetron Ondansetron No 1{table Ondansetro HCl 4 MG HCl 4 MG t} n HCl 4 MG glipiZIDE glipiZIDE No 1{table QD glipiZIDE ER 5 MG ER 5 MG t_with_ ER 5 MG food} amLODIPine amLODIPine No amLODIPine Besylate 5 Besylate 5 Besylate 5 MG MG MG amLODIPine amLODIPine No 1{table QD amLODIPine Besylate 5 Besylate 5 t} Besylate 5 MG MG MG Levothyroxi Levothyroxi No Levothyrox ne Sodium ne Sodium ine Sodium 100 MCG 100 MCG 100 MCG PriLOSEC PriLOSEC No 1{table QD PriLOSEC OTC 20 MG OTC 20 MG t} OTC 20 MG Carvedilol Carvedilol No 1{table BID Carvedilol 12.5 MG 12.5 MG t_with_ 12.5 MG food} Synthroid Synthroid No QD Synthroid 125 MCG 125 MCG 125 MCG Losartan Losartan No 1{table QD Losartan Potassium-H Potassium-H t} Potassium- CTZ CTZ HCTZ 100-12.5 MG 100-12.5 MG 100-12.5 MG Levothyroxi Levothyroxi No Levothyrox ne Sodium ne Sodium ine Sodium 125 MCG 125 MCG 125 MCG Zoloft 50 Zoloft 50 No 1{table QD Zoloft 50 MG MG t} MG Carvedilol Carvedilol No 1{table BID Carvedilol 12.5 MG 12.5 MG t_with_ 12.5 MG food} Ondansetron Ondansetron No 1{table Ondansetro HCl 4 MG HCl 4 MG t} n HCl 4 MG amLODIPine amLODIPine No amLODIPine Besylate 5 Besylate 5 Besylate 5 MG MG MG Omeprazole Omeprazole No QD Omeprazole 40 MG 40 MG 40 MG glipiZIDE glipiZIDE No 1{table QD glipiZIDE ER 5 MG ER 5 MG t_with_ ER 5 MG food} Synthroid Synthroid No QD Synthroid 125 MCG 125 MCG 125 MCG Sertraline Sertraline No Sertraline HCl 50 MG HCl 50 MG HCl 50 MG Lipitor 10 Lipitor 10 No 1{table QD Lipitor 10 MG MG t} MG Zoloft 50 Zoloft 50 No 1{table QD Zoloft 50 MG MG t} MG Levothyroxi Levothyroxi No Levothyrox ne Sodium ne Sodium ine Sodium 125 MCG 125 MCG 125 MCG PriLOSEC PriLOSEC No 1{table QD PriLOSEC OTC 20 MG OTC 20 MG t} OTC 20 MG Losartan Losartan No 1{table QD Losartan Potassium-H Potassium-H t} Potassium- CTZ CTZ HCTZ 100-12.5 MG 100-12.5 MG 100-12.5 MG Levothyroxi Levothyroxi No Levothyrox ne Sodium ne Sodium ine Sodium 100 MCG 100 MCG 100 MCG metFORMIN metFORMIN No BID metFORMIN HCl ER 500 HCl ER 500 HCl ER 500 MG MG MG Omeprazole Omeprazole No QD Omeprazole 40 MG 40 MG 40 MG Losartan Losartan No 1{table QD Losartan Potassium-H Potassium-H t} Potassium- CTZ CTZ HCTZ 100-12.5 MG 100-12.5 MG 100-12.5 MG glipiZIDE glipiZIDE No 1{table QD glipiZIDE ER 5 MG ER 5 MG t_with_ ER 5 MG food} amLODIPine amLODIPine No 1{table QD amLODIPine Besylate 5 Besylate 5 t} Besylate 5 MG MG MG Carvedilol Carvedilol No 1{table BID Carvedilol 12.5 MG 12.5 MG t_with_ 12.5 MG food} Zoloft 50 Zoloft 50 No 1{table QD Zoloft 50 MG MG t} MG Ondansetron Ondansetron No 1{table Ondansetro HCl 4 MG HCl 4 MG t} n HCl 4 MG metFORMIN metFORMIN No BID metFORMIN HCl ER 500 HCl ER 500 HCl ER 500 MG MG MG Lipitor 10 Lipitor 10 No 1{table QD Lipitor 10 MG MG t} MG Synthroid Synthroid No QD Synthroid 125 MCG 125 MCG 125 MCG glipiZIDE glipiZIDE No 1{table QD glipiZIDE ER 5 MG ER 5 MG t_with_ ER 5 MG food} amLODIPine amLODIPine No amLODIPine Besylate 5 Besylate 5 Besylate 5 MG MG MG Carvedilol Carvedilol No 1{table BID Carvedilol 12.5 MG 12.5 MG t_with_ 12.5 MG food} Ondansetron Ondansetron No 1{table Ondansetro HCl 4 MG HCl 4 MG t} n HCl 4 MG Lipitor 10 Lipitor 10 No 1{table QD Lipitor 10 MG MG t} MG Omeprazole Omeprazole No QD Omeprazole 40 MG 40 MG 40 MG Sertraline Sertraline No Sertraline HCl 50 MG HCl 50 MG HCl 50 MG Esomeprazol Esomeprazol No 1{capsu QD Esomeprazo e Magnesium e Magnesium le} le 40 MG 40 MG Magnesium 40 MG amLODIPine amLODIPine No 1{table QD amLODIPine Besylate 5 Besylate 5 t} Besylate 5 MG MG MG Levothyroxi Levothyroxi No Levothyrox ne Sodium ne Sodium ine Sodium 125 MCG 125 MCG 125 MCG Zoloft 50 Zoloft 50 No 1{table QD Zoloft 50 MG MG t} MG Famotidine Famotidine No 1{table QD Famotidine 20 MG 20 MG t_at_be 20 MG dtime_a s_neede d} metFORMIN metFORMIN No BID metFORMIN HCl ER 500 HCl ER 500 HCl ER 500 MG MG MG Synthroid Synthroid No QD Synthroid 125 MCG 125 MCG 125 MCG Losartan Losartan No 1{table QD Losartan Potassium-H Potassium-H t} Potassium- CTZ CTZ HCTZ 100-12.5 MG 100-12.5 MG 100-12.5 MG glipiZIDE glipiZIDE No 1{table QD glipiZIDE ER 5 MG ER 5 MG t_with_ ER 5 MG food} Losartan Losartan No 1{table QD Losartan Potassium-H Potassium-H t} Potassium- CTZ CTZ HCTZ 100-12.5 MG 100-12.5 MG 100-12.5 MG amLODIPine amLODIPine No amLODIPine Besylate 5 Besylate 5 Besylate 5 MG MG MG Carvedilol Carvedilol No 1{table BID Carvedilol 12.5 MG 12.5 MG t_with_ 12.5 MG food} Atorvastati Atorvastati No Atorvastat n Calcium n Calcium in Calcium 10 MG 10 MG 10 MG Lipitor 10 Lipitor 10 No 1{table QD Lipitor 10 MG MG t} MG Ondansetron Ondansetron No 1{table Ondansetro HCl 4 MG HCl 4 MG t} n HCl 4 MG Sertraline Sertraline No Sertraline HCl 50 MG HCl 50 MG HCl 50 MG Esomeprazol Esomeprazol No 1{capsu QD Esomeprazo e Magnesium e Magnesium le} le 40 MG 40 MG Magnesium 40 MG amLODIPine amLODIPine No 1{table QD amLODIPine Besylate 5 Besylate 5 t} Besylate 5 MG MG MG Levothyroxi Levothyroxi No Levothyrox ne Sodium ne Sodium ine Sodium 125 MCG 125 MCG 125 MCG Zoloft 50 Zoloft 50 No 1{table QD Zoloft 50 MG MG t} MG Famotidine Famotidine No 1{table QD Famotidine 20 MG 20 MG t_at_be 20 MG dtime_a s_neede d} Omeprazole Omeprazole No QD Omeprazole 40 MG 40 MG 40 MG Synthroid Synthroid No QD Synthroid 125 MCG 125 MCG 125 MCG metFORMIN metFORMIN No metFORMIN HCl ER 500 HCl ER 500 HCl ER 500 MG MG MG Losartan Losartan No 1{table QD Losartan Potassium-H Potassium-H t} Potassium- CTZ CTZ HCTZ 100-12.5 MG 100-12.5 MG 100-12.5 MG metFORMIN metFORMIN No metFORMIN HCl ER 500 HCl ER 500 HCl ER 500 MG MG MG amLODIPine amLODIPine No amLODIPine Besylate 5 Besylate 5 Besylate 5 MG MG MG Carvedilol Carvedilol No 1{table BID Carvedilol 12.5 MG 12.5 MG t_with_ 12.5 MG food} Atorvastati Atorvastati No Atorvastat n Calcium n Calcium in Calcium 10 MG 10 MG 10 MG Lipitor 10 Lipitor 10 No 1{table QD Lipitor 10 MG MG t} MG Ondansetron Ondansetron No 1{table Ondansetro HCl 4 MG HCl 4 MG t} n HCl 4 MG Esomeprazol Esomeprazol No 1{capsu QD Esomeprazo e Magnesium e Magnesium le} le 40 MG 40 MG Magnesium 40 MG glipiZIDE glipiZIDE No glipiZIDE ER 5 MG ER 5 MG ER 5 MG amLODIPine amLODIPine No 1{table QD amLODIPine Besylate 5 Besylate 5 t} Besylate 5 MG MG MG Famotidine Famotidine No 1{table QD Famotidine 20 MG 20 MG t_at_be 20 MG dtime_a s_neede d} Zoloft 50 Zoloft 50 No 1{table QD Zoloft 50 MG MG t} MG Sertraline Sertraline No Sertraline HCl 50 MG HCl 50 MG HCl 50 MG Omeprazole Omeprazole No QD Omeprazole 40 MG 40 MG 40 MG Synthroid Synthroid No QD Synthroid 125 MCG 125 MCG 125 MCG Levothyroxi Levothyroxi No Levothyrox ne Sodium ne Sodium ine Sodium 125 MCG 125 MCG 125 MCG Carvedilol Carvedilol No 1{table BID Carvedilol 12.5 MG 12.5 MG t_with_ 12.5 MG food} Famotidine Famotidine No 1{table QD Famotidine 20 MG 20 MG t_at_be 20 MG dtime_a s_neede d} glipiZIDE glipiZIDE No glipiZIDE ER 5 MG ER 5 MG ER 5 MG Omeprazole Omeprazole No QD Omeprazole 40 MG 40 MG 40 MG Losartan Losartan No 1{table QD Losartan Potassium-H Potassium-H t} Potassium- CTZ CTZ HCTZ 100-12.5 MG 100-12.5 MG 100-12.5 MG amLODIPine amLODIPine No amLODIPine Besylate 5 Besylate 5 Besylate 5 MG MG MG Levothyroxi Levothyroxi No Levothyrox ne Sodium ne Sodium ine Sodium 125 MCG 125 MCG 125 MCG metFORMIN metFORMIN No metFORMIN HCl ER 500 HCl ER 500 HCl ER 500 MG MG MG Synthroid Synthroid No QD Synthroid 125 MCG 125 MCG 125 MCG Esomeprazol Esomeprazol No 1{capsu QD Esomeprazo e Magnesium e Magnesium le} le 40 MG 40 MG Magnesium 40 MG Ondansetron Ondansetron No 1{table Ondansetro HCl 4 MG HCl 4 MG t} n HCl 4 MG Sertraline Sertraline No Sertraline HCl 50 MG HCl 50 MG HCl 50 MG Atorvastati Atorvastati No Atorvastat n Calcium n Calcium in Calcium 10 MG 10 MG 10 MG Zoloft 50 Zoloft 50 No 1{table QD Zoloft 50 MG MG t} MG amLODIPine amLODIPine No 1{table QD amLODIPine Besylate 5 Besylate 5 t} Besylate 5 MG MG MG Lipitor 10 Lipitor 10 No 1{table QD Lipitor 10 MG MG t} MG amLODIPine amLODIPine No 1{table QD amLODIPine Besylate 5 Besylate 5 t} Besylate 5 MG MG MG Sertraline Sertraline No Sertraline HCl 50 MG HCl 50 MG HCl 50 MG Synthroid Synthroid No QD Synthroid 125 MCG 125 MCG 125 MCG Atorvastati Atorvastati No Atorvastat n Calcium n Calcium in Calcium 10 MG 10 MG 10 MG Ondansetron Ondansetron No 1{table Ondansetro HCl 4 MG HCl 4 MG t} n HCl 4 MG Famotidine Famotidine No 1{table QD Famotidine 20 MG 20 MG t_at_be 20 MG dtime_a s_neede d} glipiZIDE glipiZIDE No glipiZIDE ER 5 MG ER 5 MG ER 5 MG Zoloft 50 Zoloft 50 No 1{table QD Zoloft 50 MG MG t} MG Esomeprazol Esomeprazol No 1{capsu QD Esomeprazo e Magnesium e Magnesium le} le 40 MG 40 MG Magnesium 40 MG glipiZIDE glipiZIDE No 1{table QD glipiZIDE ER 5 MG ER 5 MG t_with_ ER 5 MG food} Levothyroxi Levothyroxi No Levothyrox ne Sodium ne Sodium ine Sodium 125 MCG 125 MCG 125 MCG Ondansetron Ondansetron No 1{table Ondansetro HCl 4 MG HCl 4 MG t} n HCl 4 MG metFORMIN metFORMIN No BID metFORMIN HCl ER 500 HCl ER 500 HCl ER 500 MG MG MG amLODIPine amLODIPine No amLODIPine Besylate 5 Besylate 5 Besylate 5 MG MG MG Omeprazole Omeprazole No QD Omeprazole 40 MG 40 MG 40 MG Lipitor 10 Lipitor 10 No 1{table QD Lipitor 10 MG MG t} MG Losartan Losartan No 1{table QD Losartan Potassium-H Potassium-H t} Potassium- CTZ CTZ HCTZ 100-12.5 MG 100-12.5 MG 100-12.5 MG metFORMIN metFORMIN No metFORMIN HCl ER 500 HCl ER 500 HCl ER 500 MG MG MG Carvedilol Carvedilol No 1{table BID Carvedilol 12.5 MG 12.5 MG t_with_ 12.5 MG food} amLODIPine amLODIPine No 1{table QD amLODIPine Besylate 5 Besylate 5 t} Besylate 5 MG MG MG Sertraline Sertraline No Sertraline HCl 50 MG HCl 50 MG HCl 50 MG Synthroid Synthroid No QD Synthroid 125 MCG 125 MCG 125 MCG Atorvastati Atorvastati No Atorvastat n Calcium n Calcium in Calcium 10 MG 10 MG 10 MG Ondansetron Ondansetron No 1{table Ondansetro HCl 4 MG HCl 4 MG t} n HCl 4 MG Famotidine Famotidine No 1{table QD Famotidine 20 MG 20 MG t_at_be 20 MG dtime_a s_neede d} glipiZIDE glipiZIDE No glipiZIDE ER 5 MG ER 5 MG ER 5 MG Zoloft 50 Zoloft 50 No 1{table QD Zoloft 50 MG MG t} MG Esomeprazol Esomeprazol No 1{capsu QD Esomeprazo e Magnesium e Magnesium le} le 40 MG 40 MG Magnesium 40 MG glipiZIDE glipiZIDE No 1{table QD glipiZIDE ER 5 MG ER 5 MG t_with_ ER 5 MG food} Levothyroxi Levothyroxi No Levothyrox ne Sodium ne Sodium ine Sodium 125 MCG 125 MCG 125 MCG Ondansetron Ondansetron No 1{table Ondansetro HCl 4 MG HCl 4 MG t} n HCl 4 MG metFORMIN metFORMIN No BID metFORMIN HCl ER 500 HCl ER 500 HCl ER 500 MG MG MG amLODIPine amLODIPine No amLODIPine Besylate 5 Besylate 5 Besylate 5 MG MG MG Omeprazole Omeprazole No QD Omeprazole 40 MG 40 MG 40 MG Lipitor 10 Lipitor 10 No 1{table QD Lipitor 10 MG MG t} MG Losartan Losartan No 1{table QD Losartan Potassium-H Potassium-H t} Potassium- CTZ CTZ HCTZ 100-12.5 MG 100-12.5 MG 100-12.5 MG metFORMIN metFORMIN No metFORMIN HCl ER 500 HCl ER 500 HCl ER 500 MG MG MG Carvedilol Carvedilol No 1{table BID Carvedilol 12.5 MG 12.5 MG t_with_ 12.5 MG food} amLODIPine amLODIPine No 1{table QD amLODIPine Besylate 5 Besylate 5 t} Besylate 5 MG MG MG Sertraline Sertraline No Sertraline HCl 50 MG HCl 50 MG HCl 50 MG glipiZIDE glipiZIDE No glipiZIDE ER 5 MG ER 5 MG ER 5 MG Omeprazole Omeprazole No QD Omeprazole 40 MG 40 MG 40 MG Synthroid Synthroid No QD Synthroid 125 MCG 125 MCG 125 MCG Esomeprazol Esomeprazol No 1{capsu QD Esomeprazo e Magnesium e Magnesium le} le 40 MG 40 MG Magnesium 40 MG Losartan Losartan No Losartan Potassium-H Potassium-H Potassium- CTZ CTZ HCTZ 100-12.5 MG 100-12.5 MG 100-12.5 MG Zoloft 50 Zoloft 50 No 1{table QD Zoloft 50 MG MG t} MG Ondansetron Ondansetron No Ondansetro HCl 4 MG HCl 4 MG n HCl 4 MG Levothyroxi Levothyroxi No Levothyrox ne Sodium ne Sodium ine Sodium 125 MCG 125 MCG 125 MCG Atorvastati Atorvastati No Atorvastat n Calcium n Calcium in Calcium 10 MG 10 MG 10 MG Famotidine Famotidine No 1{table QD Famotidine 20 MG 20 MG t_at_be 20 MG dtime_a s_neede d} amLODIPine amLODIPine No amLODIPine Besylate 5 Besylate 5 Besylate 5 MG MG MG metFORMIN metFORMIN No metFORMIN HCl ER 500 HCl ER 500 HCl ER 500 MG MG MG Lipitor 10 Lipitor 10 No 1{table QD Lipitor 10 MG MG t} MG glipiZIDE glipiZIDE No 1{table QD glipiZIDE ER 5 MG ER 5 MG t_with_ ER 5 MG food} metFORMIN metFORMIN No BID metFORMIN HCl ER 500 HCl ER 500 HCl ER 500 MG MG MG Carvedilol Carvedilol No 1{table BID Carvedilol 12.5 MG 12.5 MG t_with_ 12.5 MG food} Omeprazole Omeprazole No QD Omeprazole 40 MG 40 MG 40 MG glipiZIDE glipiZIDE No 1{table QD glipiZIDE ER 5 MG ER 5 MG t_with_ ER 5 MG food} Ondansetron Ondansetron No 1{table Ondansetro HCl 4 MG HCl 4 MG t} n HCl 4 MG traZODone traZODone No QD traZODone HCl 100 MG HCl 100 MG HCl 100 MG Losartan Losartan No QD Losartan Potassium-H Potassium-H Potassium- CTZ CTZ HCTZ 100-12.5 MG 100-12.5 MG 100-12.5 MG metFORMIN metFORMIN No metFORMIN HCl ER 500 HCl ER 500 HCl ER 500 MG MG MG Lipitor 10 Lipitor 10 No 1{table QD Lipitor 10 MG MG t} MG Levothyroxi Levothyroxi No QD Levothyrox ne Sodium ne Sodium ine Sodium 100 MCG 100 MCG 100 MCG Zoloft 50 Zoloft 50 No 1{table QD Zoloft 50 MG MG t} MG glipiZIDE glipiZIDE No 1{table QD glipiZIDE ER 5 MG ER 5 MG t_with_ ER 5 MG food} Immunizations Ordered Filled Immunization Date Status Comments [facility] e Immunization Name Name FLUZONE HIGH DOSE FLUZONE HIGH DOSE 2022-06-24 [facility]pleted [facility] - OVER 65 OVER 65 13:44:00 [facility] FLUZONE HIGH DOSE FLUZONE HIGH DOSE 2022-06-24 Completed [facility] - OVER 65 OVER 65 13:44:00 [facility] FLUZONE HIGH DOSE FLUZONE HIGH DOSE 2022-06-24 Completed [facility] - OVER 65 OVER 65 13:44:00 [facility] Td 2021-04-21 Completed [facility] 00:00:00 [facility] Td 2021-04-21 Completed [facility] 00:00:00 [facility] Td 2021-04-21 Completed [facility] 00:00:00 [facility] Td 2021-04-21 Completed [facility] 00:00:00 [facility] Td 2021-04-21 Completed [facility] of 00:00:00 [facility] Td 2021-04-21 Completed University of 00:00:00 [facility] Td 2021-04-21 Completed University of 00:00:00 [facility] Td 2021-04-21 Completed [facility] of 00:00:00 [facility] Td 2021-04-21 Completed University of 00:00:00 [facility] Td 2021-04-21 Completed University of 00:00:00 [facility] Td 2021-04-21 Completed [facility] of 00:00:00 [facility] Td 2021-04-21 Completed [facility] of 00:00:00 [facility] Td 2021-04-21 Completed [facility] 00:00:00 [facility] Vital Signs Vital Name Observation Time Observation Value Comments Source height 2022-06-24 08:00:00 65 [in_i] [facility] weight 2022-06-24 08:00:00 199.8 [lb_av] [facility] temperature 2022-06-24 08:00:00 97.3 [degF] [facility] bmi 2022-06-24 08:00:00 33.24 kg/m2 [facility] oximetry 2022-06-24 08:00:00 99 % [facility] respiratory rate 2022-06-24 08:00:00 18 /min Comm on [facility] blood pressure 2022-06-24 08:00:00 145 mm[Hg] [facility] - systolic [facility] blood pressure 2022-06-24 08:00:00 72 mm[Hg] Common [facility] - diastolic [facility] height 2022-06-04 11:30:00 65 [in_i] [facility] weight 2022-06-04 11:30:00 200.6 [lb_av] [facility] temperature 2022-06-04 11:30:00 97.6 [degF] [facility] bmi 2022-06-04 11:30:00 33.38 kg/m2 [facility] oximetry 2022-06-04 11:30:00 99 % [facility] respiratory rate 2022-06-04 11:30:00 18 /min Comm on [facility] blood pressure 2022-06-04 11:30:00 184 mm[Hg] Common [facility] - systolic [facility] blood pressure 2022-06-04 11:30:00 77 mm[Hg] Common [facility] - diastolic [facility] height 2022-03-23 16:30:00 65 [in_i] Common [facility] weight 2022-03-23 16:30:00 198.6 [lb_av] Common [facility] temperature 2022-03-23 16:30:00 98.0 [degF] Common [facility] bmi 2022-03-23 16:30:00 33.05 kg/m2 [facility] oximetry 2022-03-23 16:30:00 94 % [facility] respiratory rate 2022-03-23 16:30:00 16 /min Comm on [facility] blood pressure 2022-03-23 16:30:00 125 mm[Hg] Common [facility] - systolic [facility] blood pressure 2022-03-23 16:30:00 59 mm[Hg] Common [facility] - diastolic [facility] height 2022-03-08 09:40:00 65 [in_i] [facility] weight 2022-03-08 09:40:00 199.4 [lb_av] [facility] bmi 2022-03-08 09:40:00 33.18 kg/m2 [facility] Systolic blood 2021-11-03 18:21:00 112 mm[Hg] Univer sity of pressure [facility] Diastolic blood 2021-11-03 18:21:00 65 mm[Hg] Unive rsity of pressure [facility] Heart rate 2021-11-03 18:21:00 62 /min [facility] Body height 2021-11-03 18:21:00 162.6 cm [facility] Body weight 2021-11-03 18:21:00 91.627 kg Universi [facility] BMI 2021-11-03 18:21:00 34.67 kg/m2 [facility] Oxygen saturation in 2021-11-03 18:21:00 98 /min University Arterial blood by [facility] Pulse oximetry Branch height 2021-10-26 16:10:00 65 [in_i] Common [facility] weight 2021-10-26 16:10:00 199.4 [lb_av] Common [facility] temperature 2021-10-26 16:10:00 97.2 [degF] Common [facility] bmi 2021-10-26 16:10:00 33.18 kg/m2 [facility] oximetry 2021-10-26 16:10:00 98 % [facility] respiratory rate 2021-10-26 16:10:00 17 /min Comm on [facility] blood pressure 2021-10-26 16:10:00 138 mm[Hg] Common [facility] - systolic [facility] blood pressure 2021-10-26 16:10:00 75 mm[Hg] Common [facility] - diastolic [facility] height 2021-09-28 16:20:00 65 [in_i] [facility] weight 2021-09-28 16:20:00 204.6 [lb_av] [facility] temperature 2021-09-28 16:20:00 97.7 [degF] [facility] bmi 2021-09-28 16:20:00 34.04 kg/m2 [facility] oximetry 2021-09-28 16:20:00 97 % Common [facility] respiratory rate 2021-09-28 16:20:00 17 /min Comm on [facility] blood pressure 2021-09-28 16:20:00 142 mm[Hg] Common [facility] - systolic [facility] blood pressure 2021-09-28 16:20:00 78 mm[Hg] [facility] - [facility] height 2021-09-15 15:30:00 65 [in_i] Common [facility] weight 2021-09-15 15:30:00 201.1 [lb_av] [facility] temperature 2021-09-15 15:30:00 97.5 [degF] [facility] bmi 2021-09-15 15:30:00 33.46 kg/m2 [facility] oximetry 2021-09-15 15:30:00 97 % Common [facility] respiratory rate 2021-09-15 15:30:00 17 /min Comm on [facility] blood pressure 2021-09-15 15:30:00 137 mm[Hg] Common [facility] - systolic [facility] blood pressure 2021-09-15 15:30:00 76 mm[Hg] [facility] - diastolic [facility] height 2021-09-15 16:00:00 65 [in_i] Common [facility] weight 2021-09-15 16:00:00 201.1 [lb_av] [facility] temperature 2021-09-15 16:00:00 97.5 [degF] Common [facility] bmi 2021-09-15 16:00:00 33.46 kg/m2 Common [facility] oximetry 2021-09-15 16:00:00 97 % [facility] respiratory rate 2021-09-15 16:00:00 17 /min Comm on [facility] blood pressure 2021-09-15 16:00:00 137 mm[Hg] [facility] - systolic [facility] blood pressure 2021-09-15 16:00:00 76 mm[Hg] [facility] - diastolic [facility] height 2021-07-21 10:10:00 65 [in_i] Common [facility] weight 2021-07-21 10:10:00 200.0 [lb_av] Common [facility] temperature 2021-07-21 10:10:00 97.4 [degF] Common [facility] bmi 2021-07-21 10:10:00 33.28 kg/m2 Common S [facility] oximetry 2021-07-21 10:10:00 97 % Common [facility] respiratory rate 2021-07-21 10:10:00 17 /min Comm on [facility] blood pressure 2021-07-21 10:10:00 149 mm[Hg] Common [facility] systolic [facility] blood pressure 2021-07-21 10:10:00 87 mm[Hg] Common [facility] diastolic [facility] Procedures Procedure Date / Time Performed Performing Clinician Sour e ASSIGNMENT OF BENEFITS 2022-06-16 21:17:35 Doctor Unassigned, No [facility] Name Medical Branch HB CREATININE 2022-05-15 14:20:00 Radiology [place] SERUM/BLOOD FOR Medical Branch IMAGING DEXA AXIAL (HIP AND 2021-11-18 21:13:26 Requisition, Paper [facility] SPINE) Medical Branch CONSENT/REFUSAL FOR 2021-11-18 20:29:45 Doctor Unassigned, No Un [facility] DIAGNOSIS AND Name Medical Branch TREATMENT ASSIGNMENT OF BENEFITS 2021-11-18 20:29:31 Doctor Unassigned, No [facility] Name Medical Branch REFERRAL- 2021-10-27 05:01:00 [facility]ONSE Name Medical Branch Encounters Start End Encounter Admission Attending Care Care Encounter Source Date/Time Date/Time Type Type Clinicians Facility Department ID 2022-06-22 Outpatient Zamudio, [facility] [id number] Common 14:44:00 Marcial [id number] [facility] [id number] 16:11:00 Marcial [facility] 2021-09-14 [facility] [id number] Common 11:09:01 Marcial [facility] 2021-09-09 [facility] [id number] Common 14:05:44 Marcial [facility] 2021-09-09 Outpatient [facility], [facility] [id number] Common 12:38:12 Marcial [facility] 2021-09-09 Outpatient Zamudio, [facility] [id number] Common 12:37:33 Marcial [facility] 2021-09-09 Outpatient Zamudio, [facility] [id number] Common 12:36:58 Marcial [facility] 2021-09-09 Outpatient Zamudio, [facility] [id number] Common 12:35:28 Marcial [facility] 2021-09-09 Outpatient Zamudio, [facility] [id number] Common 12:28:00 Marcial [address] [facility] 2021-09-09 [facility] [id number] Common 12:20:04 Marcial 88533 [facility] 2021-09-09 Outpatient Zamudio, [facility] [id number] Common 11:44:09 Marcial 62501 [facility] 2021-09-09 Outpatient Zamudio, [facility] [id number] Common 11:42:44 Marcial 72[address] [facility] 2021-09-09 Outpatient Zamudio, [facility] [id number] Common 11:42:38 Marcial 195[address] [facility] 2021-09-09 Outpatient Zamudio, [facility] [id number] Common 11:31:37 Marcial 07920 [facility] 2021-09-09 Outpatient Zamudio, [facility] [id number] Common 11:26:53 Marcial 8[address] [facility] 2021-09-09 [facility] [id number] Common 11:18:02 Marcial [address] [facility] 2021-06-15 Emergency [facility] [id number] Univers 20:59:37 ity of [facility] 2022-07-16 2022-07-16 (TEL) STLMLC STLMLC [id number] Co mmon 00:00:00 00:00:00 [facility] 2022-06-30 2022-06-30 (TEL) STLMLC STLMLC [id number] Co mmon 00:00:00 00:00:00 [facility] 2022-06-24 2022-06-24 OFFICE STLMLC STLMLC [id number] Co mmon 00:00:00 00:00:00 VISIT [facility] ESTAB PT - [facility] LEVEL 4 [facility] 2022-06-16 2022-06-16 Outpatient R RADIOLOGY [facility] [id number] Univers 16:18:09 23:59:00 ity of [facility] 2022-06-16 2022-06-16 Hospital Radiology [facility] 1.2.840.114 [id number] Univers 16:18:09 23:59:00 Encounter [place] [id number] ity of [place] [id number] [facility] [id number] [facility] 804 Branch 2022-06-16 2022-06-16 Orders Doctor DENISSE [id number] [id number] Univers 00:00:00 00:00:00 Only Unassigned, GLO [id number] ity of [place] [facility] [id number] [facility] [id number] [facility] 009 Branch 2022-06-04 2022-06-04 OFFICE STLMLC STLMLC [id number] Co mmon 00:00:00 00:00:00 VISIT NEW Spir it PT LEVEL 3 - [facility] 2022-06-01 2022-06-01 (TEL) STLMLC STLMLC [id number] Co mmon 00:00:00 00:00:00 [facility] 2022-05-25 2022-05-25 Outpatient R RADIOLOGY [facility] [id number] Univers 00:00:00 00:00:00 ity of [facility] 2022-05-15 2022-05-15 Outpatient R RADIOLOGY [facility] [id number] Univers 09:04:27 23:59:00 ity of [facility] 2022-05-15 2022-05-15 Hospital Radiology [facility] 1.2.840.114 [id number] Univers 09: 23:59:00 Encounter [place] [id number] ity of [place] [id number] [facility] [id number] [place] [address] Branch 2022-05-07 2022-05-07 Hospital Radiology [facility] 1.2.840.114 [id number] Univers 09:00:00 23:59:00 Encounter [place] [id number] ity of [place] [id number] [facility] [id number] [place] [address] Branch 2022-05-07 2022-05-07 Outpatient R RADIOLOGY [facility] [id number] Univers 00:00:00 23:59:00 ity of [facility] 2022-04-30 2022-04-30 Outpatient R RADIOLOGY [facility] [id number] Univers 00:00:00 00:00:00 ity [facility] 2022-04-21 2022-04-21 (TEL) STLMLC STLMLC [id number] Co mmon 00:00:00 00:00:00 [facility] 2022-03-23 2022-03-23 OFFICE STLMLC STLMLC [id number] Co mmon 00:00:00 00:00:00 VISIT [facility] LEVEL 4 [facility] 2022-03-22 2022-03-22 (TEL) STLMLC STLMLC [id number] Co mmon 00:00:00 00:00:00 [facility] 2022-03-17 2022-03-17 (TEL) STLMLC STLMLC [id number] Co mmon 00:00:00 00:00:00 [facility] 2022-03-09 2022-03-09 Letter DENISSE Silva [id number] [id number] Univers 00:00:00 00:00:00 (Out) Be C[place] [id number] i ty of [facility] [id number] Reggie as [id number] [address] 2022-03-08 2022-03-08 Laboratory Only, Ang Db Test [facility] 1.2.8 40.114 [id number] Univers 09:15:00 09:30:00 Only Janice Fowler [facility] [id number] ity of [place] [id number] Reggie as FABIO?BLEA [id number] [address] MEDICAL OFFICE BUILDING 2022-03-08 2022-03-08 Outpatient R MALCOLM, [facility] [id number] Univers 09:15:00 09:15:00 JANICE teague o f [facility] 2022-03-08 2022-03-08 OL DIG E/M STLMLC STLMLC [id number] Common 00:00:00 00:00:00 [facility] 11-20 Spir it [facility] 2022-03-08 2022-03-08 (TEL) STLMLC STLMLC [id number] Co mmon 00:00:00 00:00:00 [facility] 2022-03-08 2022-03-08 Ivis Humphreys [facility] 1.2.840.114 [id number] Univers 00:00:00 00:00:00 (Out) [facility] [id number] it y of [place] [id number] Reggie as FABIO?BLEA [phone] [address] MEDICAL OFFICE BUILDING 2021-11-20 2021-11-20 (TEL) STLMLC STLMLC [id number] Co mmon 00:00:00 00:00:00 [facility] 2021-11-18 2021-11-18 Outpatient R RADIOLOGY [facility] [id number] Univers 15:31:25 23:59:00 ity [facility] 2021-11-18 2021-11-18 Hospital Radiology [facility] 1.2.840.114 [id number] Univers 15:18:50 23:59:00 Encounter [place] [id number] [id number] [id number] [address] 2021-11-18 2021-11-18 Hospital Radiology [facility] 1.2.840.114 [id number] Univers 15:00:00 15:17:00 Encounter [place] [id number] [facility] [id number] [id number] [address] 2021-11-04 2021-11-04 Telephone [place] [facility] 1.2.840.114 [id number] Univers 00:00:00 00:00:00 Saleem Gio [place] [id number] [facility] [id number] [id number] Wa xochilt GALVEZ [address] [place] [address] 2021-11-03 2021-11-03 [employer], Ang - [facility] 1.2.840.1 [id number] Univers 14:30:00 14:45:00 Visit [place] Saleem [facility] [id number]. 10 ity [facility] [id number] Reggie as FABIO?BLEA [phone] [place] xochilt SIMMS [address] [place] [address] [facility]ICE [facility] 2021-11-03 2021-11-03 Outpatient SALEEM REYNA [facility] [id number] Univers 14:30:00 14:30:00 SALEEM LOUISE [facility] 2021-11-03 2021-11-03 Office Aspen [facility] 1.2.840.114 [id number] Univers 13:40:00 14:21:43 Visit Saleem [facility] [id number] ity of [facility] [id number] Reggie as FABIO?BLEA [phone] Wa xochilt [address] [facility]ICE [facility] 2021-11-03 2021-11-03 Outpatient SALEEM REYNA [facility] [id number] Univers 13:40:00 14:21:43 SALEEM LOUISE [facility] 2021-11-03 2021-11-03 Orders Doctor DENISSE 1.2.840.114 [id number] Univers 00:00:00 00:00:00 Only Unassigned, GLO [id number] ity of [place] [facility] [id number] Reggie as [id number] [address] 2021-11-03 2021-11-03 [facility] 1.2.840.114 [id number] Univers 00:00:00 00:00:00 [facility] [id number] ity of [place] [id number] Reggie as FABIO?BLEA [phone] [address] MEDICAL OFFICE BUILDING 2021-10-27 2021-10-27 Orders Doctor DENISSE [id number] Univers 00:00:00 00:00:00 Only Unassigned, GLO [id number] ity of [place] [facility] [id number] Reggie as [phone] [address] 2021-10-26 2021-10-26 OFFICE STLMLC STLMLC [id number] Co mmon 00:00:00 00:00:00 VISIT [facility] ESTAB PT - CHI LEVEL 4 [facility] 2021-10-16 2021-10-16 Emergency X [facility] ERT [id number] Univers 13:30:00 17:54:00 RENAN zahida [facility] 2021-10-16 2021-10-16 Emergency [facility] [id number] Univers 13:30:00 17:54:00 Renan LAWRENCE [id number] i ty of [place] [id number] [place] [facility] [phone] [facility] [address] [place] 2021-09-28 2021-09-28 OFFICE STLMLC STLMLC [id number] Co mmon 00:00:00 00:00:00 VISIT [facility] ESTAB PT - CHI LEVEL 4 [facility] 2021-09-22 2021-09-22 (TEL) STLMLC STLMLC [id number] Co mmon 00:00:00 00:00:00 [facility] 2021-09-17 2021-09-17 (TEL) STLMLC STLMLC [id number] Co mmon 00:00:00 00:00:00 [facility] 2021-09-15 2021-09-15 OFFICE STLMLC STLMLC [id number] Co mmon 00:00:00 00:00:00 VISIT EST Spir it PT LEVEL 3 - [facility] 2021-09-15 2021-09-15 SUB ANNUAL STLMLC STLMLC [id number] Common 00:00:00 00:00:00 MCR [facility] VISIT [facility] 2021-09-14 2021-09-14 (TEL) STLMLC STLMLC [id number] Co mmon 00:00:00 00:00:00 [facility] 2021-09-08 2021-09-08 (TEL) STLMLC STLMLC [id number] Co mmon 00:00:00 00:00:00 [facility] 2021-07-21 2021-07-21 OFFICE STLMLC STLMLC [id number] Co mmon 00:00:00 00:00:00 VISIT [facility] ESTAB PT - CHI LEVEL 4 [facility] 2021-06-22 2021-06-22 (TEL) STLMLC STLMLC [id number] Co mmon 00:00:00 00:00:00 [facility] 2021-04-21 2021-04-21 Emergency [place], [facility] [id number] [facility] 17:57:00 20:45:00 Willie Lawrence [id number] i ty of [place] [id number] [facility] [phone] [facility] tito [address] 2021-04-21 2021-04-21 Orders Doctor DENISSE [id number] Univers 00:00:00 00:00:00 Only Unassigned, GLO [id number] ity of [place] [facility] [id number] Reggie [phone] [facility] tito [address] 2021-03-11 2021-03-11 Outpatient STLMLC STLMLC [id number] Common 00:00:00 00:00:00 [facility] 2021-03-04 2021-03-04 Outpatient STLMLC STLMLC [id number] Common 00:00:00 00:00:00 [facility] 2020-11-28 2020-11-28 Outpatient STLMLC STLMLC [id number] Common 00:00:00 00:00:00 [facility] 2020-11-24 2020-11-24 Outpatient STLMLC STLMLC [id number] Common 00:00:00 00:00:00 [facility] 2020-10-21 2020-10-21 Outpatient STLMLC STLMLC [id number] Common 00:00:00 00:00:00 [facility] 2020-10-07 2020-10-07 Outpatient STLMLC STLMLC [id number] Common 00:00:00 00:00:00 [facility] 2020-10-06 2020-10-06 Outpatient STLMLC STLMLC [id number] Common 00:00:00 00:00:00 [facility] 2020-09-16 2020-09-16 Outpatient STLMLC STLMLC [id number] Common 00:00:00 00:00:00 [facility] 2020-09-12 2020-09-12 Outpatient STLMLC STLMLC [id number] Common 00:00:00 00:00:00 [facility] 2020-08-26 2020-08-26 Outpatient STLMLC STLMLC [id number] Common 00:00:00 00:00:00 [facility] 2020-08-04 2020-08-04 Outpatient STLMLC STLMLC [id number] Common 00:00:00 00:00:00 [facility] 2020-07-30 2020-07-30 Outpatient STLMLC STLMLC [id number] Common 00:00:00 00:00:00 [facility] 2020-07-01 2020-07-01 Outpatient STLMLC STLMLC [id number] Common 00:00:00 00:00:00 [facility] 2020-06-02 2020-06-02 Outpatient STLMLC STLMLC [id number] Common 00:00:00 00:00:00 [facility] 2020-05-29 2020-05-29 Outpatient STLMLC STLMLC [id number] Common 00:00:00 00:00:00 [facility] 2020-05-28 2020-05-28 Outpatient STLMLC STLMLC [id number] Common 00:00:00 00:00:00 [facility] 2020-05-27 2020-05-27 Outpatient STLMLC STLMLC [id number] Common 00:00:00 00:00:00 [facility] 2020-04-22 2020-04-22 [id number] Common 11:39:00 11:39:[address] [facility] 2020-04-15 2020-04-15 [facility] [id number] Common 15:20:00 15:20:[address] [facility] 2020-04-07 2020-04-07 [facility] [id number] Common 07:48:00 07:48:[address] [facility] 2020-04-03 2020-04-03 Laboratory Lab, [facility] [id number] 15:59:39 16:19:39 Only [facility] 350.1.13.10 [place] [id number] Professio [phone] nal [address] 2020-04-03 2020-04-03 Outpatient R [facility] [id number] Univers 16:00:00 16:00:00 ity [facility] 2020-04-03 2020-04-03 [facility] [id number] Common 11:15:00 11:15:[address] [facility] 2020-03-07 2020-03-07 [facility] [id number] Common 08:15:00 08:15:[address] [facility] 2020-02-27 2020-02-27 [facility] [id number] Common 11:04:00 11:04:[address] [facility] 2020-02-25 2020-02-25 [facility] [id number] Common 10:39:00 10:39:[address] [facility] 2020-01-30 2020-01-30 [facility] [id number] Common 15:45:00 15:45:[address] [facility] 2020-01-30 2020-01-30 [facility] [id number] Common 15:45:00 15:45:[address] [facility] 2020-01-09 2020-01-09 [facility] [id number] Common 11:17:00 11:17:[address] [facility] 2019-11-27 2019-11-27 [facility] [id number] Common 14:00:00 14:00:[address] [facility] 2019-05-22 2019-05-22 [facility] [id number] Common 16:00:00 16:00:[address] [facility] 2019-05-08 2019-05-08 [facility] [id number] Common 16:15:00 16:15:[address] [facility] 2019-03-20 2019-03-20 [facility] [id number] Common 08:20:00 08:20:[address] [facility] 2019-02-13 2019-02-13 [facility] [id number] Common 16:15:00 16:15:[address] [facility] 2018-11-24 2018-11-24 [facility] [id number] Common 16:23:00 16:23:00 t [facility] [address] [facility] 2018-11-13 2018-11-13 [id number] Common 16:30:00 16:30:00 t [facility] [address] [facility] 2018-09-28 2018-09-28 Outpatient [facility] [id number] Common 15:00:00 15:00:00 [facility] [address] [facility] Results Test Description Test Time Test Comments Results Result Comments Source POCT CREATININE 2022-05-15 14:43:44 Test Item Value Reference Range Interpretation Comme nts POCT Creatinine (test code = [id number]) 0.7 mg/dL 0.5-1.1 Lab Interpretation (test code = 14759-2) Normal [facility]
--- NOTE | 2022-07-17 12:51 | ER ---
Nurse's Notes [facility] Name: Katya Hinojosa Age: 72 yrs Sex: Female : 1950 Arrival Date: 07/17/2022 Time: 11:54 Bed DIS3 Private MD: Diagnosis: Unspecified internal derangement of left knee Presentation: 07/17 12:40 Chief complaint: Patient states: tripped and fell on Jul 14 while walking, landed on kb3 left knee. Reports pain to left knee left arm and left hip. Pt was seen at another ER and knee xrays were negative. Coronavirus screen: Vaccine status: Patient reports receiving the 2nd dose of the covid vaccine. Client denies travel out of the [place] in the last 14 days. Ebola Screen: Patient negative for fever greater than or equal to 101.5 degrees Fahrenheit, and additional compatible Ebola Virus Disease symptoms Patient denies exposure to infectious person. Patient denies travel to an Ebola-affected area in the 21 days before illness onset. Initial Sepsis Screen: Does the patient meet any 2 criteria? No. Patient's initial sepsis screen is negative. Does the patient have a suspected source of infection? No. Patient's initial sepsis screen is negative. Risk Assessment: Do you want to hurt yourself or someone else? Patient reports no desire to harm self or others. Onset of symptoms was July 14, 2022. 12:40 Method Of Arrival: Ambulatory 3 12:40 Acuity: AMAYA 4 kb3 Triage Assessment: 12:42 General: Appears in no apparent distress. Behavior is calm, cooperative. Pain: kb3 Complains of pain in left knee Pain radiates to left cruz Pain currently is 7 out of 10 on a pain scale. Quality of pain is described as aching, Pain began 2-3 days ago. Historical: - Allergies: 12:42 No Known Allergies; kb3 - PMHx: 12:42 Diabetes - NIDDM; High Cholesterol; Hypertension; Hypothyroidism; kb3 - PSHx: 12:42 None; kb3 - Immunization history:: Adult Immunizations up to date, Client reports receiving the 2nd dose of the Covid vaccine, Last tetanus immunization: up to date. - Social history:: Smoking status: Patient denies any tobacco usage or history of. Vital Signs: 12:40 BP 152 / 63; Pulse 58; Resp 20; Temp 97.5; Pulse Ox 98% ; Weight 90.26 kg; Height 5 ft. kb3 5 in. (165.10 cm); Pain 7/10; 12:40 Body Mass Index 33.11 (90.26 kg, 165.10 cm) kb3 ED Course: 11:54 Patient arrived in ED. mr 12:38 Pedro Anderson PA is PHCP. jmm 12:38 Wilner Beth MD is Attending Physician. jmm 12:42 Triage completed. kb3 12:42 Arm band placed on left wrist. kb3 12:50 Javi Alexander MD is Referral Physician. jmm 12:57 Soraya Lee, RN is Primary Nurse. iw Administered Medications: No medications were administered Outcome: 12:50 Discharge ordered by . jmm 13:34 Patient left the ED. iw Signatures: Pedro Anderson PA PA jmm Rivera, Mary mr Soraya Lee, RN RN iw Chichi Connelly, SEKOU RN kb3
--- NOTE | 2022-07-17 12:51 | EDPHYS ---
Physician Documentation [facility] Name: Katya Hinojosa Age: 72 yrs Sex: Female : 1950 Arrival Date: 07/17/2022 Time: 11:54 Bed DIS3 Private MD: ED Physician Wilner Beth HPI: 07/17 12:46 This 72 yrs old Female presents to ER via Ambulatory with complaints of Facial jmm Injury. 12:46 This 72 yrs old Female presents to ER via Ambulatory with complaints of Facial jmm Injury. 12:46 The patient presents with an injury, pain. Onset: The symptoms/episode began/occurred jmm acutely. This is a 72 year old female with a history of dm, hlp, htn, hypothyroidism that presents to the ED with complaints of ongoing left knee pain. Patient fell directly on the knee and complains of ongoing pain. Xrays were taken and read as negative. . Historical: - Allergies: 12:42 No Known Allergies; kb3 - PMHx: 12:42 Diabetes - NIDDM; High Cholesterol; Hypertension; Hypothyroidism; kb3 - PSHx: 12:42 None; kb3 - Immunization history:: Adult Immunizations up to date, Client reports receiving the 2nd dose of the Covid vaccine, Last tetanus immunization: up to date. - Social history:: Smoking status: Patient denies any tobacco usage or history of. ROS: 12:46 Constitutional: Negative for fever, chills, and weight loss, Cardiovascular: Negative jmm for chest pain, palpitations, and edema, Respiratory: Negative for shortness of breath, cough, wheezing, and pleuritic chest pain. 12:46 MS/extremity: Positive for injury or acute deformity, pain. 12:46 All other systems are negative. Exam: 12:46 Constitutional: This is a well developed, well nourished patient who is awake, alert, jmm and in no acute distress. Head/Face: atraumatic. Eyes: EOMI, no conjunctival erythema appreciated ENT: Moist Mucus Membranes Neck: Trachea midline, Supple Chest/axilla: Normal chest wall appearance and motion. Cardiovascular: Regular rate and rhythm. No edema appreciated Respiratory: Normal respirations, no respiratory distress appreciated Abdomen/GI: Non distended Back: Normal ROM 12:46 Musculoskeletal/extremity: FROM appreciated to the left anterior knee, compartments are soft, NVI. 12:46 Skin: ecchymosis noted to the left anterior knee. 12:46 Neuro: Orientation: is normal, Mentation: is normal, Memory: is normal. 12:46 Psych: Behavior/mood is pleasant, cooperative. Vital Signs: 12:40 BP 152 / 63; Pulse 58; Resp 20; Temp 97.5; Pulse Ox 98% ; Weight 90.26 kg; Height 5 ft. kb3 5 in. (165.10 cm); Pain 7/10; 12:40 Body Mass Index 33.11 (90.26 kg, 165.10 cm) kb3 MDM: 12:46 Patient medically screened. [facility] 12:50 Data reviewed: vital signs, nurses notes. Counseling: I had a detailed discussion with [facility] the patient and/or guardian regarding: the historical points, exam findings, and any diagnostic results supporting the discharge/admit diagnosis, the need for outpatient follow up, to return to the emergency department if symptoms worsen or persist or if there are any questions or concerns that arise at home. Administered Medications: No medications were administered Disposition: 07/18 08:06 Co-signature as Attending Physician, Wilner Beth MD I agree with the assessment and mechelle plan of care. Disposition Summary: 07/17/22 12:50 Discharge Ordered Location: Home [facility] Condition: Stable [facility] Diagnosis - Unspecified internal derangement of left knee [facility] Followup: [facility] - With: Javi Alexander MD - When: 2 - 3 days - Reason: Recheck today's complaints, Continuance of care, Re-evaluation by your physician Discharge Instructions: - Discharge Summary Sheet [facility] - Acute Knee Pain, Adult [facility] Forms: - Medication Reconciliation Form [facility] - Thank You Letter [facility] - Antibiotic Education [facility] - Prescription Opioid Use [facility] Prescriptions: - orphenadrine citrate 100 mg Oral Tablet Sustained Release - take 1 tablet by ORAL route 2 times per day As needed; 20 tablet; Refills: 0, [facility] Product Selection Permitted - Voltaren Arthritis Pain 1 % Topical gel - apply 2 gram by TOPICAL route 4 times per day; 1 tube; Refills: 0, Product [facility] Selection Permitted Signatures: Wilner Beth MD MD cha Mickail, Joel, PA PA [facility] Chichi Connelly, RN RN kb3
[2022-07-17 13:38] VITALS: BP 152/63; TEMP 97.5; O2SAT 98
== END 2022-07-17 13:34 | disposition home or self-care (01) ==
LOC: ER 11:52
DX: M23.92 Unspecified internal derangement of left knee (principal)
CPT/HCPCS: 99281

== ENCOUNTER 2022-08-05 16:30 | Emergency (ER) | payer OTHER ==
[2022-08-05 17:16] LABS: Absolute Lymphocytes (CBC) 2.1 K/uL (0.7-4.9); Hematocrit 36.7 % (36.0-45.0); Lymphocytes % 27.2 % (15.3-44.8); MCV 94.9 fL (80-100); MPV 7.8 fL (7.6-11.3); RBC Red Blood Cell Count 3.87 M/uL (3.86-4.86)
[2022-08-05] MEDS ORDERED: NA CHLORIDE 0.9% 50 ML IV ONE (17:24)
[2022-08-05] MEDS ORDERED: ONDANSETRON 4 MG/2 ML VIAL ONE (17:24)
[2022-08-05] MEDS ORDERED: PROMETHAZINE INJ 25 MG/ML AMP ONE (17:24)
[2022-08-05] MEDS ORDERED: ACETAMINOPHEN 325 MG TABLET ONE (17:24)
[2022-08-05 17:34] LABS: SARS-COV-2 RT PCR NEGATIVE (NEGATIVE)
--- NOTE | 2022-08-05 17:38 | RAD REPORT ---
EXAM DESCRIPTION: RAD - Chest Single View - 08/05/2022 5:32 pm CLINICAL HISTORY: nausea COMPARISON: Chest Single View dated 02/11/2022; Chest Single View dated 09/22/2021; Chest Single View d ated 09/07/2020; Chest Single View dated 07/31/2020 FINDINGS: Lines: None. Lungs: No evidence of edema or pneumonia. Pleural: No significant pleural effusions or pneumothorax. Cardiac: The heart size is within normal limits. Mediastinum: Within normal limits. Bones: No acute fractures. Other: None IMPRESSION: No acute cardiopulmonary disease.
[2022-08-05 17:39] LABS: Albumin 3.7 g/dL (3.4-5.0); Bilirubin Direct 0.1 mg/dL (0-0.2); Bilirubin Total 0.2 mg/dL (0.2-1.0); Potassium 3.6 mmol/L (3.5-5.1); Protein, Total 7.2 g/dL (6.4-8.2); Troponin High Sensitivity 6.7 pg/mL (<58.9)
--- OUTSIDE RECORDS SUMMARY | 2022-08-05 17:39 | XMS REPORT | Continuity of Care Document ---
:1950 Author Organization [facility] t Address [address] [place] [address] Care Team Providers Name Role Phone Mike Zamudio DO Primary Care Physician [phone] Mike Zamudio Attending Clinician Unavailable RADIOLOGY Attending Clinician Unavailable Stuart Menezes MD Attending Clinician Radiology Attending Clinician Unavailable Doctor Unassigned, [place] Attending Clinician Unavailable Be Silva MD Attending [...] Number Effective Date Expiration Date Ave vela [employer] [id number] 2018spring 00:00:[facility] [id number] Common Sp maria ines ing Medicare - [facility] Problems Condition Condition Condition Status Onset Resolution Last Treating Co mments Source Name Details Category Date Date Treatment Clinician Date Dyslipidem Dyslipidem Disease Active 2015-08 U kipers ia ia 2- ity of 00:00: [place] 00 [facility] Prediabete Prediabete Disease Active U nivers s s 04-20 ity of 00:00: [place] [facility] Dizzy Dizzy Disease Active 2014-08 Univers spells spells 2- ity of 00:00: [place] [facility] Palpitatio Palpitatio Disease Active 2014-08 U corina ns ns 2- ity of 00:00: [place] [facility] Shortness Shortness Disease Active 2014-08 Uni vers of breath of breath 2- ity of 00:00: [place] 00 [facility] Atypical Atypical Disease Active 2014-08 Unive rs chest pain chest pain 2- it y of 00:00: [place] [facility] Postsurgic Postsurgic Disease Active 2014-08 U corina al al 2 ity of [place]othy[place] [facility] [place] [id number] Primary Problem Commo n osteoarthr Spirit itis - [facility] involving [facility] [id number] Primary Problem Common insomnia Spirit - [facility] [id number] 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 [facility] Kidney Kidney Problem Common mass mass Spirit - [facility] [id number] History of Problem Co mmon diabetes Spirit mellitus - [facility] [id number] Essential Problem Comm on hypertensi Spirit on - [facility] [id number] Gastroesop Problem Co mmon hageal Spirit reflux - [facility]I disease [facility] esophagiti Medica l s Center [id number] Primary Problem Commo n osteoarthr Spirit itis, - [facility] unspecifie [facility] Acquired Acquired Problem Commo n hypothyroi hypothyroi Sp maria ines dism dism - [facility] [id number] Encounter Problem Com mon for Spirit gynecologi - [facility] Medical abnormal Center finding [id number] Body mass Problem Com mon index Spirit (BMI) - [facility] 32.0-32.9, [facility] [id number] Other Problem Common obesity Spirit due to - [facility]I excess [facility] [id number] Type 2 Problem Common diabetes Spirit mellitus - [facility] with [facility] without Center long-term current use of insulin Allergies, Adverse Reactions, Alerts Allergy Allergy Status Severity Reaction(s) Onset Inactive Treating Comm ents Source Name Type Date Date Clinician NO KNOWN Drug Active Univers ALLERGIE Class ity of [facility] Social History Social Habit Start Date Stop Date Quantity Comments Source History of Common Spirit - Tobacco Use [facility] Alcohol intake 2022-08-04 2022-08-04 Lifetime [employer] 00:00:00 00:00:00 non-drinker of Medicine (finding) Exposure to 2022-07-18 2022-07-28 Not sure [facility] SARS-CoV-2 00:00:00 14:20:00 of Medicine (event) Tobacco use and 2022-07-28 2022-07-28 Smokeless tobacco [facility] exposure 00:00:00 00:00:00 non-user of Medicine Sex Ass[birth year] [employer] 00:00:00 00:00:00 of Medicine Smoking Status Start Date Stop Date Source Never smoked tobacco [facility] ege of Medicine Medications Ordered Filled Start Stop Current Ordering Indication Dosage Frequency Signature Comments Components Source Medication Medication Date Date Medication? Clinician (SIG) Name Name No known 2021-08 No No known [facility] r medications 2- medication Co llege 12:48: s of 10 Medicin e gadobenate 2021-08- No [id number] .2mL/kg 0.2 mL/kg, Univers dimeglumine 08-16 Intravenou i ty of (MULTIHANCE 22:45: 22:43 s, ONCE, 1 [place] -20 mL) 00 :00 dose, On Medical injection Wed Branch 0.2 mL/kg 06/16/22 at 1745, Routine iopamidol 2021-08- No [id number] 74mL 74 mL, U nivers (ISOVUE 05-15 Intravenou ity o f 370-500 mL) 15:15: 14:27 s, ONCE, 1 [place] injection 00 :00 dose, On Medica l 74 mL Sat Branch 05/15/22 at 1015, Routine Pseudoeph-B Pseudoeph-B 2021- No 5{ml_as QID Pseudoeph- romphen-DM romphen-DM 03-08 _needed Bromphen-D 30-2-10 30-2-10 00:00: 00:00 } M 30-2-10 MG/5ML MG/5ML 00 :00 MG/5ML Pseudoeph-B Pseudoeph-B 2021- No 5{ml_as QID Pseudoeph- romphen-DM romphen-DM 03-08 _needed Bromphen-D 30-2-10 30-2-10 00:00: 00:00 } M 30-2-10 MG/5ML MG/5ML 00 :00 MG/5ML amitriptyli Yes [id number] 25mg Take 1 Univers ne 25 mg 3-24 tablet by ity of tablet 00:00: mouth at [place] [address] bedtime. Medical Branch amitriptyli Yes [id number] 25mg Take 1 Univers ne 25 mg 3-24 tablet by ity of tablet 00:00: mouth at [place] 00 bedtime. Medical Branch amitriptyli 2021-0 Yes [id number] 25mg Take 1 Univers ne 25 mg 3-24 tablet by ity of tablet 00:00: mouth at [place] [address] bedtime. Medical Branch amitriptyli 2021-0 Yes [id number] 25mg Take 1 Univers ne 25 mg 3-24 tablet by ity of tablet 00:00: mouth at [place] [address] bedtime. Medical Branch amitriptyli 2021-0 Yes [id number] 25mg Take 1 Univers ne 25 mg 3-24 tablet by ity of tablet 00:00: mouth at [place] [address] bedtime. Medical Branch amitriptyli 2021-0 Yes [id number] 25mg Take 1 Univers ne 25 mg 3-24 tablet by ity of tablet 00:00: mouth at [place] [address] bedtime. Medical Branch amitriptyli 2021-0 Yes [id number] 25mg Take 1 Univers ne 25 mg 3-24 tablet by ity of tablet 00:00: mouth at [place] [address] bedtime. Medical Branch amitriptyli 0 Yes [id number] 25mg Take 1 Univers ne 25 mg 3-24 tablet by ity of tablet 00:00: mouth at [place] [address] bedtime. Medical Branch amitriptyli 2021-0 Yes [id number] 25mg Take 1 Univers ne 25 mg 3-24 tablet by ity of tablet 00:00: mouth at [place] [address] bedtime. Medical Branch amitriptyli 2021-0 Yes [id number] 25mg Take 1 Univers ne 25 mg 3-24 tablet by ity of tablet 00:00: mouth at [place] [address] bedtime. Medical Branch amitriptyli 2021-0 Yes [id number] 25mg Take 1 Univers ne 25 mg 3-24 tablet by ity of tablet 00:00: mouth at [place] [address] bedtime. Medical Branch amLODIPine 2021-0 Yes Univers 10 mg 3-21 ity of tablet 00:00: [place] 00 [facility] amLODIPine 2021-0 Yes Univers 10 mg 3-21 ity of tablet 00:00: [place] 00 Medical [facility] amLODIPine 2021-0 Yes Univers 10 mg 3-21 ity of tablet 00:00: [place] 00 [facility] amLODIPine 2021-0 Yes Univers 10 mg 3-21 ity of tablet 00:00: [place] 00 Medical [facility] amLODIPine 2022-0 Yes Univers 10 mg 3-21 ity of tablet 00:00: [place] [facility] amLODIPine 2022-0 Yes Univers 10 mg 3-21 ity of tablet 00:00: [place] [facility] amLODIPine 2022-0 Yes Univers 10 mg 3-21 ity of tablet 00:00: [place] [facility] amLODIPine 2022-0 Yes Univers 10 mg 3-21 ity of tablet 00:00: [place] [facility] amLODIPine 2022-0 Yes Univers 10 mg 3-21 ity of tablet 00:00: [place] [facility] amLODIPine 2022-0 Yes Univers 10 mg 3-21 ity of tablet 00:00: [place] [facility] amLODIPine 2022-0 Yes Univers 10 mg 3-21 ity of tablet 00:00: [place] [facility] amLODIPine 2022-0 Yes Univers 10 mg 3-21 ity of tablet 00:00: [place] [facility] ondansetron 2022-0 Yes 4mg Take 4 mg U nivers 4 mg tablet 3-14 by mouth 2 it y of 00:00: (two) [place] 00 times Medical daily as Branch needed. ondansetron 2022-0 Yes 4mg Take 4 mg U nivers 4 mg tablet 3-14 by mouth 2 it y of 00:00: (two) [place] 00 times Medical daily as Branch needed. ondansetron 2022-0 Yes 4mg Take 4 mg U nivers 4 mg tablet 3-14 by mouth 2 it y of 00:00: (two) [place] 00 times Medical daily as Branch needed. ondansetron 2022-0 Yes 4mg Take 4 mg U nivers 4 mg tablet 3-14 by mouth 2 it y of 00:00: (two) [place] 00 times Medical daily as Branch needed. ondansetron 2022-0 Yes 4mg Take 4 mg U nivers 4 mg tablet 3-14 by mouth 2 it y of 00:00: (two) [place] 00 times Medical daily as Branch needed. ondansetron 2022-0 Yes 4mg Take 4 mg U nivers 4 mg tablet 3-14 by mouth 2 it y of 00:00: (two) [place] 00 times Medical daily as Branch needed. [...] times Medical daily as Branch needed. losartan-hy 202-0 Yes 1{tbl} Take 1 Un hitesh drochloroth 2-20 tablet by ity of iazide 00:00: mouth [place] 100-12.5 mg 00 daily. Medica l per tablet Branch losartan-hy 2021-0 Yes 1{tbl} Take 1 Un hitesh drochloroth 2-20 tablet by ity of iazide 00:00: mouth [place] 100-12.5 mg 00 daily. Medica l per tablet Branch losartan-hy 2022-0 Yes 1{tbl} Take 1 Un hitesh drochloroth 2-20 tablet by ity of iazide 00:00: mouth [place] 100-12.5 mg 00 daily. Medica l per tablet Branch losartan-hy 2022-0 Yes 1{tbl} Take 1 Un hitesh drochloroth 2-20 tablet by ity of iazide 00:00: mouth [place] 100-12.5 mg 00 daily. Medica l per tablet Branch losartan-hy 2022-0 Yes 1{tbl} Take 1 Un hitesh drochloroth 2-20 tablet by ity of iazide 00:00: mouth [place] 100-12.5 mg 00 daily. Medica l per tablet Branch losartan-hy Yes 1{tbl} Take 1 Un hitesh drochloroth 2-20 tablet by ity of iazide 00:00: mouth [place] 100-12.5 mg 00 daily. Medica l per tablet Branch losartan-hy Yes 1{tbl} Take 1 Un hitseh drochloroth 2-20 tablet by ity of iazide [...] daily. Medica l per tablet Branch SERTraline Yes 50mg Take 50 mg U nivers 50 mg 2-14 by mouth ity of tablet 00:00: daily. Medical Branch SERTraline Yes 50mg Take 50 mg U nivers 50 mg 2-14 by mouth ity of tablet 00:00: daily. Medical Branch SERTraline Yes 50mg Take 50 mg U nivers 50 mg 2-14 by mouth ity of tablet 00:00: daily. [facility] SERTraline Yes 50mg Take 50 mg U nivers 50 mg 2-14 by mouth ity of tablet 00:00: daily. [address] SERTraline 2-0 Yes 50mg Take 50 mg U nivers 50 mg 2-14 by mouth ity of tablet 00:00: daily. [place] [facility] SERTraline 2-0 Yes 50mg Take 50 mg U nivers 50 mg 2-14 by mouth ity of tablet 00:00: daily. [address] SERTraline 2021-0 Yes 50mg Take 50 mg U nivers 50 mg 2-14 by mouth ity of tablet 00:00: daily. [address] SERTraline 2021-0 Yes 50mg Take 50 mg U nivers 50 mg 2-14 by mouth ity of tablet 00:00: daily. [address] SERTraline 2021-0 Yes 50mg Take 50 mg U nivers 50 mg 2-14 by mouth ity of tablet 00:00: daily. [address] SERTraline 2021-0 Yes 50mg Take 50 mg U nivers 50 mg 2-14 by mouth ity of tablet 00:00: daily. [address] SERTraline 2021-0 Yes 50mg Take 50 mg U nivers 50 mg 2-14 by mouth ity of tablet 00:00: daily. [address] SERTraline 2-0 Yes 50mg Take 50 mg U nivers 50 mg 2-14 by mouth ity of tablet 00:00: daily. [address] Synthroid Synthroid 2021-0 No QD 125 MCG 125 MCG 2-03 00:00: 00 Synthroid Synthroid 2021-0 No QD 125 MCG 125 MCG 2-03 00:00: 00 Synthroid Synthroid 2021-0 No QD Synthroid 125 MCG 125 MCG 2-03 125 MCG 00:00: 00 Synthroid Synthroid 2021-0 No QD Synthroid 125 MCG 125 MCG 2-03 125 MCG 00:00: 00 Synthroid Synthroid 2-0 No QD Synthroid 125 MCG 125 MCG 2-03 125 MCG 00:00: 00 Synthroid Synthroid 2020-1 No QD Synthroid 112 MCG 112 MCG 2-07 112 MCG 00:00: 00 Synthroid Synthroid 2020-1 No QD Synthroid 112 MCG 112 MCG 2-07 112 MCG 00:00: 00 Synthroid Synthroid 2020-1 No QD Synthroid 112 MCG 112 MCG 2-07 112 MCG 00:00: 00 Rocephin Rocephin 2020-0 No 1g Commo n (Ceftriaxon (Ceftriaxon 8-20 S pirit e) e) 00:00: - [facility] 00 [facility] Rocephin Rocephin 2020-0 No 1g Commo n (Ceftriaxon (Ceftriaxon 8-20 S pirit e) e) 00:00: - [facility] 00 [facility] Rocephin Rocephin 2020-0 No 1g Commo n (Ceftriaxon (Ceftriaxon 8-20 S pirit e) e) 00:00: - [facility] 00 [facility] Rocephin Rocephin 2020-0 No 1g Commo n (Ceftriaxon (Ceftriaxon 8-20 S pirit e) e) 00:00: - [facility] 00 [facility] Rocephin Rocephin 2020-0 No 1g Commo n (Ceftriaxon (Ceftriaxon 8-20 S pirit e) e) 00:00: - [facility] 00 [facility] Rocephin Rocephin 2020-0 No 1g Commo n (Ceftriaxon (Ceftriaxon 8-20 S pirit e) e) 00:00: - [facility] 00 [facility] Rocephin Rocephin 2020-0 No 1g Commo n (Ceftriaxon (Ceftriaxon 8-20 S pirit e) e) 00:00: - [facility] 00 [facility] Rocephin Rocephin 2020-0 No 1g Commo n (Ceftriaxon (Ceftriaxon 8-20 S pirit e) e) 00:00: - [facility] 00 [facility] Rocephin Rocephin 2020-0 No 1g Commo n (Ceftriaxon (Ceftriaxon 8-20 S pirit e) e) 00:00: - [facility] 00 [facility] Rocephin Rocephin 2020-0 No 1g Commo n (Ceftriaxon (Ceftriaxon 8-20 S pirit e) e) 00:00: - [facility] 00 [facility] Rocephin Rocephin 2020-0 No 1g Commo n (Ceftriaxon (Ceftriaxon 8-20 S pirit e) e) 00:00: - [facility] 00 [facility] Rocephin Rocephin 2020-0 No 1g Commo n (Ceftriaxon (Ceftriaxon 8-20 S pirit e) e) 00:00: - [facility] 00 [facility] Rocephin Rocephin 2020-0 No 1g Commo n (Ceftriaxon (Ceftriaxon 8-20 S pirit e) e) 00:00: - [facility] 00 [facility] Rocephin Rocephin 2020-0 No 1g Commo n (Ceftriaxon (Ceftriaxon 8-20 S pirit e) e) 00:00: - [facility] 00 [facility] Rocepwin Rocephin 2020-0 No 1g Commo n (Ceftriaxon (Ceftriaxon 8-20 S pirit e) e) 00:00: - [facility] 00 [facility] Ondansetron Ondansetron 2020-0 Yes Mike 1 tablet Common HCl HCl 7-24 Zamudio Spirit 00:00: - [facility] 00 [facility] Jardiance Jardiance 2020-0 Yes Mike 1 tablet Common 7-24 Zamudio Spirit 00:00: - [facility] 00 [facility] MetFORMIN MetFORMIN 2020-0 Yes Mike 2 tablets Common HCl ER HCl ER 7-14 Zamudio with meal Spiri t 00:00: - [facility] 00 [facility] Tradjenta Tradjenta 2020-0 Yes Mike 1 tablet Common 7-14 Zamudio Spirit 00:00: - [facility] 00 [facility] Restasis Restasis 2019-0 Yes Mike 1 drop C ommon 5-28 Zamudio into Spirit 00:00: affected - [facility] 00 eye as [facility] Restasis Restasis 2020-0 No 1{drop_ BID Restasis 0.05 % 0.05 % 5-28 into_af 0.05 % 00:00: fected_ 00 eye_as_ needed} Restasis Restasis 2020-0 No 1{drop_ BID Restasis 0.05 % 0.05 % 5-28 into_af 0.05 % 00:00: fected_ 00 eye_as_ needed} Restasis Restasis 2020-0 No 1{drop_ BID Restasis 0.05 % 0.05 % 5-28 into_af 0.05 % 00:00: fected_ 00 eye_as_ needed} Restasis Restasis 2020-0 No 1{drop_ BID Restasis 0.05 % 0.05 % 01-09 into_af 0.05 % 00:00: fected_ 00 eye_as_ needed} Nystatin Nystatin Yes Mike 1 Com mon 03-20 Zamudio applicatio Spirit 00:00: n to - [facility]I 00 affected [facility] Nystatin Nystatin No 1{appli BID Nystatin 226185 947049 8-06 cation_ 115209 UNIT/GM UNIT/GM 00:00: to_affe UNIT/GM 00 cted_ar ea} Nystatin Nystatin No 1{appli BID Nystatin 336789 603776 8-06 cation_ 686400 UNIT/GM UNIT/GM 00:00: to_affe UNIT/GM 00 cted_ar ea} Nystatin Nystatin No 1{appli BID Nystatin 188203 833766 8-06 cation_ 166600 UNIT/GM UNIT/GM 00:00: to_affe UNIT/GM 00 cted_ar ea} Nystatin Nystatin No 1{appli BID Nystatin 586558 041098 8-06 cation_ 685338 UNIT/GM UNIT/GM 00:00: to_affe UNIT/GM 00 cted_ar ea} omeprazole Yes [id number] 40mg Take 2 Univers 20 mg 2-13 tablets by ity of tablet 00:00: mouth [place] 00 daily. Medical Branch ondansetron Yes [id number] 4mg Take 1 Univers (ZOFRAN 2-13 tablet by ity of ODT) 4 mg 00:00: mouth [place] disintegrat 00 every 8 Medic al ing tablet (eight) Branch hours as needed for Nausea and Vomiting (N/V). omeprazole Yes [id number] 40mg Take 2 Univers 20 mg 2-13 tablets by ity of tablet 00:00: mouth [place] 00 daily. Medical Branch ondansetron Yes [id number] 4mg Take 1 Univers (ZOFRAN 2-13 tablet by ity of ODT) 4 mg 00:00: mouth [place] disintegrat 00 every 8 Medic al ing tablet (eight) Branch hours as needed for Nausea and Vomiting (N/V). omeprazole Yes [id number] 40mg Take 2 Univers 20 mg 2-13 tablets by ity of tablet 00:00: mouth [place] 00 daily. Medical Branch ondansetron 2019-0 Yes [id number] 4mg Take 1 Univers (ZOFRAN 2-13 tablet by ity of ODT) 4 mg 00:00: mouth [place] disintegrat 00 every 8 Medic al ing tablet (eight) Branch hours as needed for Nausea and Vomiting (N/V). omeprazole 2019-0 Yes [id number] 40mg Take 2 Univers 20 mg 2-13 tablets by ity of tablet 00:00: mouth [place] 00 daily. Medical Branch ondansetron 2019-0 Yes [id number] 4mg Take 1 Univers (ZOFRAN 2-13 tablet by ity of ODT) 4 mg 00:00: mouth [place] disintegrat 00 every 8 Medic al ing tablet (eight) Branch hours as needed for Nausea and Vomiting (N/V). omeprazole 2019-0 Yes [id number] 40mg Take 2 Univers 20 mg 2-13 tablets by ity of tablet 00:00: mouth [place] 00 daily. Medical Branch ondansetron 2019-0 Yes [id number] 4mg Take 1 Univers (ZOFRAN 2-13 tablet by ity of ODT) 4 mg 00:00: mouth [place] disintegrat 00 every 8 Medic al ing tablet (eight) Branch hours as needed for Nausea and Vomiting (N/V). omeprazole 2019-0 Yes [id number] 40mg Take 2 Univers 20 mg 2-13 tablets by ity of tablet 00:00: mouth [place] 00 daily. Medical Branch ondansetron 2019-0 Yes [id number] 4mg Take 1 Univers (ZOFRAN 2-13 tablet by ity of ODT) 4 mg 00:00: mouth [place] disintegrat 00 every 8 Medic al ing tablet (eight) Branch hours as needed for Nausea and Vomiting (N/V). omeprazole 2019-0 Yes [id number] 40mg Take 2 Univers 20 mg 2-13 tablets by ity of tablet 00:00: mouth [place] 00 daily. Medical Branch ondansetron 2019-0 Yes [id number] 4mg Take 1 Univers (ZOFRAN 2-13 tablet by ity of ODT) 4 mg 00:00: mouth [place] disintegrat 00 every 8 Medic al ing tablet (eight) Branch hours as needed for Nausea and Vomiting (N/V). omeprazole 2019-0 Yes [id number] 40mg Take 2 Univers 20 mg 2-13 tablets by ity of tablet 00:00: mouth [place] 00 daily. Medical Branch ondansetron 2019-0 Yes [id number] 4mg Take 1 Univers (ZOFRAN 2-13 tablet by ity of ODT) 4 mg 00:00: mouth [place] disintegrat 00 every 8 Medic al ing tablet (eight) Branch hours as needed for Nausea and Vomiting (N/V). omeprazole 2019-0 Yes [id number] 40mg Take 2 Univers 20 mg 2-13 tablets by ity of tablet 00:00: mouth [place] 00 daily. Medical Branch ondansetron 2019-0 Yes [id number] 4mg Take 1 Univers (ZOFRAN 2-13 tablet by ity of ODT) 4 mg 00:00: mouth [place] disintegrat 00 every 8 Medic al ing tablet (eight) Branch hours as needed for Nausea and Vomiting (N/V). omeprazole 2019-0 Yes [id number] 40mg Take 2 Univers 20 mg 2-13 tablets by ity of tablet 00:00: mouth [place] 00 daily. Medical Branch ondansetron 2019-0 Yes [id number] 4mg Take 1 Univers (ZOFRAN 2-13 tablet by ity of ODT) 4 mg 00:00: mouth [place] disintegrat 00 every 8 Medic al ing tablet (eight) Branch hours as needed for Nausea and Vomiting (N/V). omeprazole 2019-0 Yes [id number] 40mg Take 2 Univers 20 mg 2-13 tablets by ity of tablet 00:00: mouth [place] 00 daily. Medical Branch ondansetron 2019-0 Yes [id number] 4mg Take 1 Univers (ZOFRAN 2-13 tablet by ity of ODT) 4 mg 00:00: mouth [place] disintegrat 00 every 8 Medic al ing tablet (eight) Branch hours as needed for Nausea and Vomiting (N/V). omeprazole 2019-0 Yes [id number] 40mg Take 2 Univers 20 mg 2-13 tablets by ity of tablet 00:00: mouth [place] 00 daily. Medical Branch ondansetron 2019-0 Yes [id number] 4mg Take 1 Univers (ZOFRAN 2-13 tablet by ity of ODT) 4 mg 00:00: mouth [place] disintegrat 00 every 8 Medic al ing tablet (eight) Branch hours as needed for Nausea and Vomiting (N/V). omeprazole Yes [id number] 40mg Take 2 Univers 20 mg 2-13 tablets by ity of tablet 00:00: mouth [place] 00 daily. Medical Branch ondansetron Yes [id number] 4mg Take 1 Univers (ZOFRAN 2-13 tablet by ity of ODT) 4 mg 00:00: mouth [place] disintegrat 00 every 8 Medic al ing tablet (eight) Branch hours as needed for Nausea and Vomiting (N/V). Diclofenac 2017- Yes [id number] Take 2-4 Univers Sodium 8-16 grams ity of (VOLTAREN) 00:00: three [place] 1 % gel 00 times a Medical day as Branch needed for pain levothyroxi Yes [id number] 100ug Take 1 Univers ne 100 mcg 8-16 tablet by ity of tablet 00:00: mouth [place] 00 every Medical morning. Branch lisinopril Yes [id number] 10mg Take 1 U nivers 10 mg 8-16 tablet by ity of tablet 00:00: mouth [place] 00 daily. Medical Branch Diclofenac Yes [id number] Take 2-4 Univers Sodium 8-16 grams ity of (VOLTAREN) 00:00: three [place] 1 % gel 00 times a Medical day as Branch needed for pain levothyroxi 2017- Yes [id number] 100ug Take 1 Univers ne 100 mcg 8-16 tablet by ity of tablet 00:00: mouth [place] 00 every Medical morning. Branch lisinopril 2017- Yes [id number] 10mg Take 1 U nivers 10 mg 8-16 tablet by ity of tablet 00:00: mouth [place] 00 daily. Medical Branch Diclofenac 2017- Yes [id number] Take 2-4 Univers Sodium 8-16 grams ity of (VOLTAREN) 00:00: three [place] 1 % gel 00 times a Medical day as Branch needed for pain levothyroxi 2017- Yes [id number] 100ug Take 1 Univers ne 100 mcg 8-16 tablet by ity of tablet 00:00: mouth [place] 00 every Medical morning. Branch lisinopril 2017- Yes [id number] 10mg Take 1 U nivers 10 mg 8-16 tablet by ity of tablet 00:00: mouth [place] 00 daily. Medical Branch Diclofenac 2017- Yes [id number] Take 2-4 Univers Sodium 8-16 grams ity of (VOLTAREN) 00:00: three [place] 1 % gel 00 times a Medical day as Branch needed for pain levothyroxi Yes [id number] 100ug Take 1 Univers ne 100 mcg 8-16 tablet by ity of tablet 00:00: mouth [place] 00 every Medical morning. Branch lisinopril Yes [id number] 10mg Take 1 U nivers 10 mg 8-16 tablet by ity of tablet 00:00: mouth [place] 00 daily. Medical Branch Diclofenac Yes [id number] Take 2-4 Univers Sodium 8-16 grams ity of (VOLTAREN) 00:00: three [place] 1 % gel 00 times a Medical day as Branch needed for pain levothyroxi Yes [id number] 100ug Take 1 Univers ne 100 mcg 8-16 tablet by ity of tablet 00:00: mouth [place] 00 every Medical morning. Branch lisinopril Yes [id number] 10mg Take 1 U nivers 10 mg 8-16 tablet by ity of tablet 00:00: mouth [place] 00 daily. Medical Branch Diclofenac Yes [id number] Take 2-4 Univers Sodium 8-16 grams ity of (VOLTAREN) 00:00: three [place] 1 % gel 00 times a Medical day as Branch needed for pain levothyroxi Yes [id number] 100ug Take 1 Univers ne 100 mcg 8-16 tablet by ity of tablet 00:00: mouth [place] 00 every Medical morning. Branch lisinopril Yes [id number] 10mg Take 1 U nivers 10 mg 8-16 tablet by ity of tablet 00:00: mouth [place] 00 daily. Medical Branch Diclofenac 2017- Yes [id number] Take 2-4 Univers Sodium 8-16 grams ity of (VOLTAREN) 00:00: three [place] 1 % gel 00 times a Medical day as Branch needed for pain levothyroxi Yes [id number] 100ug Take 1 Univers ne 100 mcg 8-16 tablet by ity of tablet 00:00: mouth [place] 00 every Medical morning. Branch lisinopril 2017- Yes [id number] 10mg Take 1 U nivers 10 mg 8-16 tablet by ity of tablet 00:00: mouth [place] 00 daily. Medical Branch Diclofenac 2017- Yes [id number] Take 2-4 Univers Sodium 8-16 grams ity of (VOLTAREN) 00:00: three [place] 1 % gel 00 times a Medical day as Branch needed for pain levothyroxi Yes [id number] 100ug Take 1 Univers ne 100 mcg 8-16 tablet by ity of tablet 00:00: mouth [place] 00 every Medical morning. Branch lisinopril Yes [id number] 10mg Take 1 U nivers 10 mg 8-16 tablet by ity of tablet 00:00: mouth [place] 00 daily. Medical Branch Diclofenac Yes [id number] Take 2-4 Univers Sodium 8-16 grams ity of (VOLTAREN) 00:00: three [place] 1 % gel 00 times a Medical day as Branch needed for pain levothyroxi Yes [id number] 100ug Take 1 Univers ne 100 mcg 8-16 tablet by ity of tablet 00:00: mouth [place] 00 every Medical morning. Branch lisinopril Yes [id number] 10mg Take 1 U nivers 10 mg 8-16 tablet by ity of tablet 00:00: mouth [place] 00 daily. Medical Branch Diclofenac Yes [id number] Take 2-4 Univers Sodium 8-16 grams ity of (VOLTAREN) 00:00: three [place] 1 % gel 00 times a Medical day as Branch needed for pain levothyroxi Yes [id number] 100ug Take 1 Univers ne 100 mcg 8-16 tablet by ity of tablet 00:00: mouth [place] 00 every Medical morning. Branch lisinopril Yes [id number] 10mg Take 1 U nivers 10 mg 8-16 tablet by ity of tablet 00:00: mouth [place] 00 daily. Medical Branch Diclofenac 2017- Yes [id number] Take 2-4 Univers Sodium 8-16 grams ity of (VOLTAREN) 00:00: three [place] 1 % gel 00 times a Medical day as Branch needed for pain levothyroxi Yes [id number] 100ug Take 1 Univers ne 100 mcg 8-16 tablet by ity of tablet 00:00: mouth [place] 00 every Medical morning. Branch lisinopril 2017- Yes [id number] 10mg Take 1 U nivers 10 mg 8-16 tablet by ity of tablet 00:00: mouth [place] 00 daily. Medical Branch Diclofenac Yes [id number] Take 2-4 Univers Sodium 8-16 grams ity of (VOLTAREN) 00:00: three [place] 1 % gel 00 times a Medical day as Branch needed for pain levothyroxi Yes [id number] 100ug Take 1 Univers ne 100 mcg 8-16 tablet by ity of tablet 00:00: mouth [place] 00 every Medical morning. Branch lisinopril Yes [id number] 10mg Take 1 U nivers 10 mg 8-16 tablet by ity of tablet 00:00: mouth [place] 00 daily. Medical Branch Diclofenac Yes [id number] Take 2-4 Univers Sodium 8-16 grams ity of (VOLTAREN) 00:00: three [place] 1 % gel 00 times a Medical day as Branch needed for pain levothyroxi Yes [id number] 100ug Take 1 Univers ne 100 mcg 8-16 tablet by ity of tablet 00:00: mouth [place] 00 every Medical morning. Branch lisinopril Yes [id number] 10mg Take 1 U nivers 10 mg 8-16 tablet by ity of tablet 00:00: mouth [place] 00 daily. Medical Branch atorvastati Yes [id number] 20mg Take 1 Univers n 20 mg 1-17 tablet by ity of tablet 00:00: mouth at [place] 00 bedtime. Medical Branch atorvastati Yes [id number] 20mg Take 1 Univers n 20 mg 1-17 tablet by ity of tablet 00:00: mouth at [place] [address] bedtime. Medical Branch atorvastati Yes [id number] 20mg Take 1 Univers n 20 mg 1-17 tablet by ity of tablet 00:00: mouth at [place] [address] bedtime. Medical Branch atorvastati Yes [id number] 20mg Take 1 Univers n 20 mg 1-17 tablet by ity of tablet 00:00: mouth at [place] [address] bedtime. Medical Branch atorvastati Yes [id number] 20mg Take 1 Univers n 20 mg 1-17 tablet by ity of tablet 00:00: mouth at [place] [address] bedtime. Medical Branch atorvastati Yes [id number] 20mg Take 1 Univers n 20 mg 1-17 tablet by ity of tablet 00:00: mouth at [place] [address] bedtime. Medical Branch atorvastati Yes [id number] 20mg Take 1 Univers n 20 mg 1-17 tablet by ity of tablet 00:00: mouth at [place] [address] bedtime. Medical Branch atorvastati Yes [id number] 20mg Take 1 Univers n 20 mg 1-17 tablet by ity of tablet 00:00: mouth at [place] [address] bedtime. Medical Branch atorvastati Yes [id number] 20mg Take 1 Univers n 20 mg 1-17 tablet by ity of tablet 00:00: mouth at [place] [address] bedtime. Medical Branch atorvastati Yes [id number] 20mg Take 1 Univers n 20 mg 1-17 tablet by ity of tablet 00:00: mouth at [place] [address] bedtime. Medical Branch atorvastati Yes [id number] 20mg Take 1 Univers n 20 mg 1-17 tablet by ity of tablet 00:00: mouth at [place] [address] bedtime. Medical Branch atorvastati Yes [id number] 20mg Take 1 Univers n 20 mg 1-17 tablet by ity of tablet 00:00: mouth at [place] [address] bedtime. Medical Branch atorvastati Yes [id number] 20mg Take 1 Univers n 20 mg 1-17 tablet by ity of tablet 00:00: mouth at [place] [address] bedtime. Medical Branch Lipitor Lipitor Yes Mike 1 tablet Com mon [facility] [place] [facility] Lisinopril Lisinopril Yes Mike 1 tablet Common Zamudio [facility] Prilosec Prilosec Yes Mike 1 tablet C ommon OTC OTC [facility] [place] [facility] Levothyroxi Levothyroxi Yes Mike 1 tablet Common ne Sodium ne Sodium [...] MG 12.5 MG t_with_ 12.5 MG food} Levothyroxi Levothyroxi No Levothyrox ne Sodium ne Sodium ine Sodium 125 MCG 125 MCG 125 MCG amLODIPine amLODIPine No 1{table QD amLODIPine Besylate 5 Besylate 5 t} Besylate 5 MG MG MG Atorvastati Atorvastati No Atorvastat n Calcium n Calcium in Calcium 10 MG 10 MG 10 MG glipiZIDE glipiZIDE No glipiZIDE ER 5 MG ER 5 MG ER 5 MG Famotidine Famotidine No 1{table QD Famotidine [...] HCTZ 100-12.5 MG 100-12.5 MG 100-12.5 MG Lipitor 10 Lipitor 10 No 1{table QD Lipitor 10 MG MG t} MG Ondansetron Ondansetron No Ondansetro HCl 4 MG HCl 4 MG n HCl 4 MG metFORMIN metFORMIN No BID metFORMIN HCl ER 500 HCl ER 500 HCl ER 500 MG MG MG Carvedilol Carvedilol No 1{table BID Carvedilol 12.5 MG 12.5 MG t_with_ 12.5 MG food} Omeprazole Omeprazole No QD Omeprazole 40 MG 40 MG 40 MG amLODIPine amLODIPine No amLODIPine Besylate 5 Besylate 5 Besylate 5 MG MG MG glipiZIDE glipiZIDE No 1{table QD glipiZIDE ER 5 MG ER 5 MG t_with_ ER 5 MG food} metFORMIN metFORMIN No metFORMIN HCl ER 500 [...] Status Comments Sourc e Immunization Name Name FLUZONE HIGH DOSE FLUZONE HIGH DOSE 2022-06-24 [facility]pleted [facility] - OVER 65 OVER 65 13:44:00 [facility] FLUZONE HIGH DOSE FLUZONE HIGH DOSE 2022-06-24 Completed [facility] - OVER 65 OVER 65 13:44:00 [facility] FLUZONE HIGH DOSE FLUZONE HIGH DOSE 2022-06-24 Completed [facility] - OVER 65 OVER 65 13:44:00 [facility] FLUZONE HIGH DOSE FLUZONE HIGH DOSE 2022-06-24 Completed [facility] - OVER 65 OVER 65 13:44:00 [facility] FLUZONE HIGH DOSE FLUZONE HIGH DOSE 2022-06-24 Completed [facility] - OVER 65 OVER 65 13:44:00 [facility] Td 2021-04-21 Completed University of 00:00:00 [facility] Td 2021-04-21 Completed University of 00:00:00 [facility] Td 2021-04-21 Completed University of 00:00:00 [facility] Td 2021-04-21 Completed University of 00:00:00 [facility] Td 2021-04-21 Completed University of 00:00:00 [facility] Td 2021-04-21 Completed University of 00:00:00 [facility] Td 2021-04-21 Completed University of 00:00:00 [facility] Td 2021-04-21 Completed University of 00:00:00 [facility] Td 2021-04-21 Completed University of 00:00:00 [facility] Td 2021-04-21 Completed University of 00:00:00 [facility] Td 2021-04-21 Completed University of 00:00:00 [facility] Td 2021-04-21 Completed University of 00:00:00 [facility] Td 2021-04-21 Completed University of 00:00:00 [facility] Vital Signs Vital Name Observation Time Observation Value Comments Source Body temperature 2022-07-28 20:41:00 37 Magdalena [facility] Body height 2022-07-28 20:41:00 165.1 cm [facility] Body weight 2022-07-28 20:41:00 90.266 kg [facility] BMI 2022-07-28 20:41:00 33.12 kg/m2 [facility] Systolic blood 2022-07-28 20:41:00 121 mm[Hg] [facility] pressure Medicine Diastolic blood 2022-07-28 20:41:00 65 mm[Hg] [facility] pressure Medicine Heart rate 2022-07-28 20:41:00 62 /min [facility] height 2022-06-24 08:00:00 65 [in_i] [facility] - [facility] weight 2022-06-24 08:00:00 199.8 [lb_av] [facility] temperature 2022-06-24 08:00:00 97.3 [degF] Common [facility] pirit [facility] bmi 2022-06-24 08:00:00 33.24 kg/m2 [facility] - [facility] oximetry 2022-06-24 08:00:00 99 % [facility] respiratory rate 2022-06-24 08:00:00 18 /min Comm on [facility] blood pressure 2022-06-24 08:00:00 145 mm[Hg] Common [facility] - systolic [facility] blood pressure 2022-06-24 08:00:00 72 mm[Hg] [facility] - diastolic [facility] height 2022-06-04 11:30:00 65 [in_i] Common [facility] weight 2022-06-04 11:30:00 200.6 [lb_av] [facility] temperature 2022-06-04 11:30:00 97.6 [degF] Common S pirit [facility] bmi 2022-06-04 11:30:00 33.38 kg/m2 [facility] S [facility] oximetry 2022-06-04 11:30:00 99 % Common S [facility] respiratory rate 2022-06-04 11:30:00 18 /min Comm on [facility] blood pressure 2022-06-04 11:30:00 184 mm[Hg] Common [facility] - systolic [facility] blood pressure 2022-06-04 11:30:00 77 mm[Hg] [facility] - diastolic [facility] height 2022-03-23 16:30:00 65 [in_i] [facility] weight 2022-03-23 16:30:00 198.6 [lb_av] Common [facility] temperature 2022-03-23 16:30:00 98.0 [degF] Common S pirit [facility] bmi 2022-03-23 16:30:00 33.05 kg/m2 [facility] oximetry 2022-03-23 16:30:00 94 % [facility] respiratory rate 2022-03-23 16:30:00 16 /min Comm on [facility] blood pressure 2022-03-23 16:30:00 125 mm[Hg] [facility] systolic [facility] blood pressure 2022-03-23 16:30:00 59 mm[Hg] [facility] diastolic [facility] height 2022-03-08 09:40:00 65 [in_i] [facility] weight 2022-03-08 09:40:00 199.4 [lb_av] [facility] bmi 2022-03-08 09:40:00 33.18 kg/m2 [facility] Systolic blood 2021-11-03 18:21:00 112 mm[Hg] Univer sity of [facility] Diastolic blood 2021-11-03 18:21:00 65 mm[Hg] Unive rsity of [facility] Heart rate 2021-11-03 18:21:00 62 /min [facility] Body height 2021-11-03 18:21:00 162.6 cm [facility] Body weight 2021-11-03 18:21:00 91.627 kg [facility] BMI 2021-11-03 18:21:00 34.67 kg/m2 [facility] Oxygen saturation in 2021-11-03 18:21:00 98 /min [facility] Arterial blood by [facility] Pulse oximetry Branch height 2021-10-26 16:10:00 65 [in_i] [facility] weight 2021-10-26 16:10:00 199.4 [lb_av] [facility] temperature 2021-10-26 16:10:00 97.2 [degF] [facility] bmi 2021-10-26 16:10:00 33.18 kg/m2 Common S pirit [facility] oximetry 2021-10-26 16:10:00 98 % [facility] respiratory rate 2021-10-26 16:10:00 17 /min Comm on [facility] blood pressure 2021-10-26 16:10:00 138 mm[Hg] Common [facility] - systolic [facility] blood pressure 2021-10-26 16:10:00 75 mm[Hg] Common [facility] - diastolic [facility] height 2021-09-28 16:20:00 65 [in_i] [facility] weight 2021-09-28 16:20:00 204.6 [lb_av] [facility] temperature 2021-09-28 16:20:00 97.7 [degF] Common [facility] bmi 2021-09-28 16:20:00 34.04 kg/m2 Common S [facility] oximetry 2021-09-28 16:20:00 97 % Common S [facility] respiratory rate 2021-09-28 16:20:00 17 /min Comm on [facility] blood pressure 2021-09-28 16:20:00 142 mm[Hg] Common [facility] - systolic [facility] blood pressure 2021-09-28 16:20:00 78 mm[Hg] Common [facility] - diastolic [facility] height 2021-09-15 15:30:00 65 [in_i] Common S pirit [facility] weight 2021-09-15 15:30:00 201.1 [lb_av] Common [facility] temperature 2021-09-15 15:30:00 97.5 [degF] Common S pirit [facility] bmi 2021-09-15 15:30:00 33.46 kg/m2 Common S pirit [facility] oximetry 2021-09-15 15:30:00 97 % Common S pirit [facility] respiratory rate 2021-09-15 15:30:00 17 /min Comm on [facility] blood pressure 2021-09-15 15:30:00 137 mm[Hg] Common [facility] - systolic [facility] blood pressure 2021-09-15 15:30:00 76 mm[Hg] Common [facility] - diastolic [facility] height 2021-09-15 16:00:00 65 [in_i] Common S [facility] weight 2021-09-15 16:00:00 201.1 [lb_av] Common [facility] temperature 2021-09-15 16:00:00 97.5 [degF] Common S [facility] bmi 2021-09-15 16:00:00 33.46 kg/m2 [facility] S [facility] oximetry 2021-09-15 16:00:00 97 % [facility] respiratory rate 2021-09-15 16:00:00 17 /min Comm on [facility] blood pressure 2021-09-15 16:00:00 137 mm[Hg] Common [facility] - systolic [facility] blood pressure 2021-09-15 16:00:00 76 mm[Hg] Common [facility] - diastolic [facility] height 2021-07-21 10:10:00 65 [in_i] Common [facility] weight 2021-07-21 10:10:00 200.0 [lb_av] Common [facility] temperature 2021-07-21 10:10:00 97.4 [degF] Common S [facility] bmi 2021-07-21 10:10:00 33.28 kg/m2 Common S [facility] oximetry 2021-07-21 10:10:00 97 % Common S [facility] respiratory rate 2021-07-21 10:10:00 17 /min Comm on [facility] blood pressure 2021-07-21 10:10:00 149 mm[Hg] Common [facility] - systolic [facility] blood pressure 2021-07-21 10:10:00 87 mm[Hg] [facility] - diastolic [facility] Procedures Procedure Date / Time Performed Performing Clinician Sourc e ASSIGNMENT OF BENEFITS 2022-06-16 21:17:35 Doctor Unassigned, No [facility] Name Medical Branch HB CREATININE 2022-05-15 14:20:00 Radiology [place] SERUM/BLOOD FOR Medical Branch IMAGING DEXA AXIAL (HIP AND 2021-11-18 21:13:26 Requisition, Paper [facility] SPINE) Medical Branch CONSENT/REFUSAL FOR 2021-11-18 20:29:45 Doctor Unassigned, No Un [facility] DIAGNOSIS AND Name Medical Branch TREATMENT ASSIGNMENT OF BENEFITS 2021-11-18 20:29:31 Doctor Unassigned, No [facility] Medical Branch REFERRAL- 2021-10-27 05:01:00 Doctor Unassigned, No [facility] REQUEST/RESPONSE Name Medical [place] Plan of Care Planned Activity Planned Date Details Comments Source Future Scheduled 2022-08-04 Screening for [facility] Test 12:48:05 malignant neoplasm of Medici ne of colon (procedure) [code = 998738075] Future Scheduled 2022-08-04 BMI FOLLOW UP PLAN [employer] Test 12:48:05 [code = BMI FOLLOW of Medici ne UP PLAN] Future Scheduled 2022-08-04 Hepatitis C Mono [employer] Test 12:48:05 screening of Medicine (procedure) [code = 846229761] Future Scheduled 2022-08-04 ZOSTER VACCINE (1 of [employer] Test 12:48:05 2) [code = ZOSTER of Medicin e VACCINE (1 of 2)] Future Scheduled 2022-08-04 FALL SCREEN [code = [employer] Test 12:48:05 FALL SCREEN] of Medicine Future Scheduled 2022-08-04 Screening for [employer] Test 12:48:05 osteoporosis of Medicine (procedure) [code = 558240905] Future Scheduled 2022-08-04 Pneumococcal 65+ (1 [employer] Test 12:48:05 - PCV) [code = of Medicine Pneumococcal 65+ (1 - PCV)] Future Scheduled 2022-08-04 Screening for [facility] [employer] Test 12:48:05 malignant neoplasm of Medici ne of breast (procedure) [code = 537083638] Future Scheduled 2022-08-04 COVID-19 Vaccine (2 [facility] or [facility] Test 12:48:05 - Pfizer series) of Medicine [code = COVID-19 Vaccine (2 - Pfizer series)] Future Scheduled 2022-08-04 FLU VACCINE > 6 [facility] Test 12:48:05 MONTHS [code = FLU of Medici ne VACCINE > 6 MONTHS] Future Scheduled 2022-08-04 TETANUS SHOT (ADULT) [facility] Test 12:48:05 [code = TETANUS SHOT of Medi cine (ADULT)] Future Scheduled 2022-07-28 MRI ABDOMEN W WO 1 Occurrences [facility] Test 15:27:30 CONTRAST [code = starting of Medicine 79329-9] 07/28/2022 until 07/28/2023 Future Scheduled 2022-07-28 XR CHEST PA AND 1 Occurrences [facility] Test 15:27:30 LATERAL [code = starting of Medicine 91020-3] 07/28/2022 until 07/28/2023 Encounters Start End Encounter Admission Attending Care Care Encounter Source Date/Time Date/Time Type Type Clinicians Facility Department ID 2022-06-22 Outpatient Zamudio, [facility] [id number] Common 14:44:00 Mike [facility] 2021-10-26 Outpatient Zamudio, [facility] [id number] Common 16:11:00 Miek [facility] 2021-09-14 Outpatient Zamudio, [facility] [id number] Common 11:09:01 Mike [facility] 2021-09-09 Outpatient Zamudio, [facility] [id number] Common 14:05:44 Mike [id number] [facility] 2021-09-09 Outpatient Zamudio, [facility] [id number] Common 12:38:12 Mike [id number] [facility] 2021-09-09 Outpatient Zamudio, [facility] [id number] Common 12:37:33 Mike [id number] [facility] 2021-09-09 Outpatient Zamudio, [facility] [id number] Common 12:36:58 Mike [id number] [facility] 2021-09-09 Outpatient Zamudio, STLMLC STLMLC [id number] Common 12:35:28 Mike 83036 [facility] 2021-09-09 Outpatient Zamudio, STLMLC STLMLC [id number] Common 12:28:00 Mike [id number] [facility] 2021-09-09 Outpatient Zamudio, STLMLC STLMLC [id number] Common 12:20:04 Mike [id number] [facility] 2021-09-09 Outpatient Zamudio, STLMLC STLMLC [id number] Common 11:44:09 Mike [id number] [facility] 2021-09-09 Outpatient Zamudio, STLMLC STLMLC [id number] Common 11:42:44 Mike 96731 [facility] 2021-09-09 Outpatient Zamudio, STLMLC STLMLC [id number] Common 11:42:38 Mike 86591 [facility] 2021-09-09 Outpatient Zamudio, STLMLC STLMLC [id number] Common 11:31:37 Mike [id number] [facility] 2021-09-09 Outpatient Zamudio, STLMLC STLMLC [id number] Common 11:26:53 Mike [id number] [facility] 2021-09-09 Outpatient Zamudio, STLMLC STLMLC [id number] Common 11:18:02 Mike [id number] [facility] 2021-06-15 Emergency [facility] [id number] Univers 20:59:37 [facility] 2022-08-12 2022-08-12 Outpatient R RADIOLOGY [facility] [id number] Univers 00:00:00 00:00:00 [facility] 2022-08-02 2022-08-02 (TEL) STLMLC STLMLC [id number] Co mmon 00:00:00 00:00:00 [facility] 2022-07-28 2022-07-28 Office Link, [facility] [id number] [place] [address] 14:00:00 14:30:00 Visit Stuart Molina AMBULATOR 350.1.13.21 [place] [id number] [id number] [facility] 300 e 2022-07-26 2022-07-26 (TEL) STLMLC STLMLC [id number] Co mmon 00:00:00 00:00:00 [facility] 2022-07-16 2022-07-16 (TEL) STLMLC STLMLC [id number] Co mmon 00:00:00 00:00:00 [facility] 2022-06-30 2022-06-30 (TEL) STLMLC STLMLC [id number] Co mmon 00:00:00 00:00:00 [facility] 2022-06-24 2022-06-24 OFFICE STLMLC STLMLC [id number] Co mmon 00:00:00 00:00:00 VISIT Vadim [facility] - [facility] LEVEL [facility] 2022-06-16 2022-06-16 Outpatient R RADIOLOGY [facility] [id number] Univers 16:18:09 23:59:[address] [facility] 2022-06-16 2022-06-[address] [facility] 1.2.840.114 [id number] Univers 16:18:09 23:59:00 Encounter [place] 350.1.13.10 ity of [place] 4.2.7.2.686 [facility] [id number] [facility] 804 Branch 2022-06-16 2022-06-16 Orders Doctor DENISSE 1.2.840.114 [id number] Univers 00:00:00 00:00:00 Only Unassigned, GLO 350.1.13.10 ity of [place] [facility] 4.2.7.2.686 Reggie [phone] [facility] 009 Branch 2022-06-04 2022-06-04 OFFICE STLMLC STLMLC [id number] Co mmon 00:00:00 00:00:00 VISIT SHREYAS Hawkins it PT LEVEL 3 - [facility] 2022-06-01 2022-06-01 (TEL) STLMLC STLMLC [id number] Co mmon 00:00:00 00:00:00 Spirit - [facility] 2022-05-25 2022-05-25 Outpatient R RADIOLOGY [facility] [id number] Univers 00:00:00 00:00:[address] [facility] 2022-05-15 2022-05-15 Outpatient R RADIOLOGY [facility] [id number] Univers 09:04:27 23:59:[address] [facility] 2022-05-15 2022-05-[address] [facility] 1.2.840.114 [id number] Univers 09:04:27 23:59:00 Encounter [place] 350.1.13.10 ity of [place] 4.2.7.2.686 [facility] [id number] [address] 2022-05-07 2022-05-[address] [facility] 1.2.840.114 [id number] Univers 09:00:00 23:59:00 Encounter [place] 350.1.13.10 ity of [place] 4.2.7.2.686 [facility] [id number] [address] 2022-05-07 2022-05-07 Outpatient R RADIOLOGY [facility] [id number] Univers 00:00:00 23:59:[address] [facility] 2022-04-30 2022-04-30 Outpatient R RADIOLOGY [facility] [id number] Univers 00:00:00 00:00:[address] [facility] 2022-04-21 2022-04-21 (TEL) STLMLC STLMLC [id number] Co mmon 00:00:00 00:00:00 [facility] - [facility] 2022-03-23 2022-03-23 OFFICE STLMLC STLMLC [id number] Co mmon 00:00:00 00:00:00 VISIT Spirit [facility] - CHI LEVEL 4 [facility] 2022-03-22 2022-03-22 (TEL) STLMLC STLMLC [id number] Co mmon 00:00:00 00:00:00 [facility] 2022-03-17 2022-03-17 (TEL) STLMLC STLMLC [id number] Co mmon 00:00:00 00:00:00 [facility] 2022-03-09 2022-03-09 Letter DENISSE Silva [id number] Univers 00:00:00 00:00:00 (Out) Be CODY 350.1.13.10 i ty of [facility] 4.2.7.2.686 Reggie as [id number] [address] 2022-03-08 2022-03-08 Laboratory Only, Ang Db Test [facility] 1.2.8 40.114 [id number] Univers 09:15:00 09:30:00 Only Malcolm, Janice Urban[facility]uz 350.1.13.10 [facility] 4.2.7.2.686 Reggie as FABIO?BLEA [id number] [address] MEDICAL OFFICE BUILDING 2022-03-08 2022-03-08 Outpatient R MALCOLM [facility] [id number] Univers 09:15:00 09:15:00 [address] o f [facility] 2022-03-08 2022-03-08 [facility] [id number] Common 00:00:00 00:00:00 [facility] 11-20 Spir it [facility] 2022-03-08 2022-03-08 (TEL) STLC STLC [id number] Co mmon 00:00:00 00:00:00 [facility] 2022-03-08 2022-03-[address] [facility] 1.2.840.114 [id number] Univers 00:00:00 00:00:00 (Out) [facility] 350.1.13.10 it y of [place] 4.2.7.2.686 Reggie as FABIO?BLEA [id number] [address] MEDICAL OFFICE BUILDING 2021-11-20 2021-11-20 (TEL) STLC STLC [id number] Co mmon 00:00:00 00:00:00 [facility] 2021-11-18 2021-11-18 Outpatient R RADIOLOGY [facility] [id number] Univers 15:31:25 23:59:[address] [facility] 2021-11-18 2021-11-[address] [facility] 1.2.840.114 [id number] Univers 15:18:50 23:59:00 Encounter [place] 350.1.13.10 ity [facility] 4[place]2.7.[place] [id number] [address] 2021-11-18 2021-11-18 [facility] [id number] Univers 15:00:00 15:17:00 Encounter [place] [id number] ity [facility] [id number] [phone] [address] 2021-11-04 2021-11-[address] [facility] [id number] Univers 00:00:00 00:00:00 [facility] [id number] ity of [id number] [phone] Vt xochilt GALVEZ [address] [place] [address] 2021-11-03 2021-11-03 Gr[facility] Lab, Ang - Db [facility] [id number] Univers 14:30:00 14:45:00 Visit Saleem Louise [facility] [id number] 10 ity of [place] [id number] Reggie as FABIO?BLEA [phone] Vt xochilt SIMMS [address] [place] [address] OFFICE [facility] 2021-11-03 2021-11-03 Outpatient R ASPEN SALEEM [facility] [id number] Univers 14:30:00 14:30:00 [facility] 2021-11-03 2021-11-[address] [facility] [id number] Univers 13:40:00 14:21:43 Visit Saleem [facility] [id number] ity of [place] [id number] Reggie as FABIO?BLEA [phone] Vt xochilt SIMMS [address] [place] [address] OFFICE BUILDING 2021-11-03 2021-11-03 Outpatient R ASPENSALEEM [facility] [id number] Univers 13:40:00 14:21:43 ASPEN SALEEM zahida of [facility] 2021-11-03 2021-11-03 Orders Doctor DENISSE 1.2.840.114 [id number] Univers 00:00:00 00:00:00 Only Unassigned, GLO [id number] ity of [facility] [id number] Reggie as [phone] [address] 2021-11-03 2021-11-[address] [facility] 1.2.840.114 [id number] Univers 00:00:00 00:00:00 Saleem [facility] [id number] ity of [place] [id number] Reggie as FABIO?BLEA [phone] [address] MEDICAL OFFICE [facility] 2021-10-27 2021-10-27 Orders Doctor DENISSE 1.2.840.114 [id number] Univers 00:00:00 00:00:00 Only Unassigned, GLO [id number] ity of [facility] [id number] Reggie as [phone] [facility] [address] 2021-10-26 2021-10-[address] [facility] [id number] Co mmon 00:00:00 00:00:00 VISIT Vadim SAUCEAD PT - CHI LEVEL 4 [facility] 2021-10-16 2021-10-16 Emergency X [facility] ERT [id number] Univers 13:30:00 17:54:00 RENAN teague [facility] 2021-10-16 2021-10-16 Emergency [facility] [id number] Univers 13:30:00 17:54:00 Renan LAWRENCE [id number] i ty of [facility] [id number] [place] [facility] [phone] [facility] [address] 2021-09-28 2021-09-28 OFFICE STLC STLC [id number] Co mmon 00:00:00 00:00:00 VISIT Vadim ESTAB PT - CHI LEVEL 4 [facility] 2021-09-22 2021-09-22 (TEL) STLMLC STLMLC [id number] Co mmon 00:00:00 00:00:00 Spirit - [facility] 2021-09-17 2021-09-17 (TEL) STLMLC STLMLC [id number] Co mmon 00:00:00 00:00:00 [facility] 2021-09-15 2021-09-15 OFFICE STLMLC STLMLC [id number] Co mmon 00:00:00 00:00:00 VISIT EST Spir it PT LEVEL 3 - [facility] 2021-09-15 2021-09-15 SUB ANNUAL STLMLC STLMLC [id number] Common 00:00:00 00:00:00 MCR [facility] WELLNESS - CHI VISIT [facility] 2021-09-14 2021-09-14 (TEL) STLMLC STLMLC [id number] Co mmon 00:00:00 00:00:00 [facility] 2021-09-08 2021-09-08 (TEL) STLMLC STLMLC [id number] Co mmon 00:00:00 00:00:00 [facility] - [facility] 2021-07-21 2021-07-21 OFFICE STLMLC STLMLC [id number] Co mmon 00:00:00 00:00:00 VISIT Spirit ESTAB PT - CHI LEVEL 4 [facility] 2021-06-22 2021-06-22 (TEL) STLMLC STLMLC [id number] Co mmon 00:00:00 00:00:00 [facility] - [facility] 2021-04-21 2021-04-21 Emergency [place], [facility] 1.2.840.114 [id number] Univers 17:57:00 20:45:00 Willie Lawrence [id number] i kesiha of [place] [id number] [facility] [phone] [facility] [address] 2021-04-21 2021-04-21 Orders Doctor DENISSE 1.2.840.114 [id number] Univers 00:00:00 00:00:00 Only Unassigned, GLO [id number] ity [facility] [id number] [facility] [phone] [place] [address] [address] 2021-03-11 2021-03-11 Outpatient STLMLC STLMLC [id number] Common 00:00:00 00:00:00 [facility] 2021-03-04 2021-03-04 Outpatient STLMLC STLMLC [id number] Common 00:00:00 00:00:00 [facility] 2020-11-28 2020-11-28 Outpatient STLMLC STLMLC [id number] Common 00:00:00 00:00:00 [facility] 2020-11-24 2020-11-24 Outpatient STLMLC STLMLC [id number] Common 00:00:00 00:00:00 [facility] 2020-10-21 2020-10-21 Outpatient STLMLC STLMLC [id number] Common 00:00:00 00:00:00 [facility] 2020-10-07 2020-10-07 Outpatient STLMLC STLMLC [id number] Common 00:00:00 00:00:00 [facility] 2020-10-06 2020-10-06 Outpatient STLMLC STLMLC [id number] Common 00:00:00 00:00:00 [facility] 2020-09-16 2020-09-16 Outpatient STLMLC STLMLC [id number] Common 00:00:00 00:00:00 [facility] 2020-09-12 2020-09-12 Outpatient STLMLC STLMLC [id number] Common 00:00:00 00:00:00 [facility] 2020-08-26 2020-08-26 Outpatient STLMLC STLMLC [id number] Common 00:00:00 00:00:00 [facility] 2020-08-04 2020-08-04 Outpatient STLMLC STLMLC [id number] Common 00:00:00 00:00:00 [facility] 2020-07-30 2020-07-30 Outpatient STLMLC STLMLC [id number] Common 00:00:00 00:00:00 [facility] 2020-07-01 2020-07-01 Outpatient STLMLC STLMLC [id number] Common 00:00:00 00:00:00 [facility] 2020-06-02 2020-06-02 Outpatient STLMLC STLMLC [id number] Common 00:00:00 00:00:00 [facility] 2020-05-29 2020-05-29 Outpatient STLMLC STLMLC [id number] Common 00:00:00 00:00:00 [facility] 2020-05-28 2020-05-28 Outpatient STLMLC STLMLC [id number] Common 00:00:00 00:00:00 [facility] 2020-05-27 2020-05-27 Outpatient STLMLC STLMLC [id number] Common 00:00:00 00:00:00 [facility] 2020-04-22 2020-04-22 [facility] [id number] Common 11:39:00 11:39:[address] [facility] 2020-04-15 2020-04-15 Outpatient [facility] [id number] Common 15:20:00 15:20:[address] [facility] 2020-04-07 2020-04-07 Outpatient [facility] [id number] Common 07:48:00 07:48:[address] [facility] 2020-04-03 2020-04-03 Laboratory Lab, [facility] [id number] [id number] 15:59:39 16:19:39 Only Fam b I [facility] [id number] [place] [id number] Professio [phone] nal [address] 2020-04-03 2020-04-03 Outpatient R [facility] [id number] Univers 16:00:00 [facility]:00:[facility] 2020-04-03 2020-04-03 [facility] [id number] Common 11:15:00 11:15:[address] [facility] 2020-03-07 2020-03-07 [facility] [id number] Common 08:15:00 08:15:[address] [facility] 2020-02-27 2020-02-27 Out[facility] [id number] Common 11:04:00 11:04:[address] [facility] 2020-02-25 2020-02-25 Outpatient [facility] [id number] Common 10:39:00 10:39:[address] [facility] 2020-01-30 2020-01-30 Out[facility] [id number] Common 15:45:00 15:45:[address] [facility] 2020-01-30 2020-01-30 Out[facility] [id number] Common 15:45:00 15:45:[address] [facility] 2020-01-09 2020-01-09 Outpatient [facility] [id number] Common 11:17:00 11:17:[address] [facility] 2019-11-27 2019-11-27 Outpatient [facility] [id number] Common 14:00:00 14:00:[address] [facility] 2019-05-22 2019-05-22 Outpatient [facility] [id number] Common 16:00:00 16:00:[address] [facility] 2019-05-08 2019-05-08 Outpatient [facility] [id number] Common 16:15:00 16:15:[address] [facility] 2019-03-20 2019-03-20 Outpatient [facility] [id number] Common 08:20:00 08:20:[address] [facility] 2019-02-13 2019-02-13 Outpatient [facility] [id number] Common 16:15:00 16:15:00 t [facility] [address] [facility] 2018-11-24 2018-11-24 Outpatient [facility] [id number] Common 16:23:00 16:23:00 t [facility] [address] [facility] 2018-11-13 2018-11-13 Out[facility] [id number] Common 16:30:00 16:30:00 t [facility] [address] [facility] 2018-09-28 2018-09-28 [facility] [id number] Common 15:00:00 15:00:00 t [facility] [address] [facility] Results Test Description Test Time Test Comments Results Result Comments Source POCT CREATININE 2022-05-15 14:43:44 Test Item Value Reference Range Interpretation Comme nts POCT Creatinine (test code = [id number]) 0.7 mg/dL 0.5-1.1 Lab Interpretation (test code = 41166-1) Normal [facility]
--- NOTE | 2022-08-05 18:59 | RAD REPORT ---
EXAM DESCRIPTION: CT - Head Brain Wo Cont - 08/05/2022 6:45 pm CLINICAL HISTORY: nausea, headache COMPARISON: Head angio dated 02/11/2022; Head Brain Wo Cont dated 02/11/2022 TECHNIQUE: All CT scans are performed using dose optimization technique as appropriate and may inclu de automated exposure control or mA/KV adjustment according to patient size. FINDINGS: No intracranial hemorrhage, hydrocephalus or extra-axial fluid collection.No areas of brai n edema or evidence of midline shift. Calcified meningioma along the left aspect of the tentorium is unchanged. The paranasal sinuses and mastoids are clear. The calvarium is intact. IMPRESSION: No acute intracranial abnormality.
--- NOTE | 2022-08-05 19:46 | RAD REPORT ---
EXAM DESCRIPTION: US - Abdomen Exam Limited - 08/05/2022 7:38 pm CLINICAL HISTORY: nausea/vomiting COMPARISON: Abdomen Pelvis Wo Contrast dated 04/05/2020 FINDINGS: The gallbladder demonstrates shadowing gallstones. No pericholecystic fluid or gallbladder wall thickening. The common bile duct is at upper limits of normal for patient's age measuring 7 mm. Negative sonographic [place]'s sign. The liver demonstrates no findings of intrahepatic biliary dilatation. IMPRESSION: Cholelithiasis. No sonographic evidence of acute cholecystitis. Common bile duct at uppe r limits of normal for patient's age.
--- NOTE | 2022-08-05 20:57 | ER ---
Nurse's Notes [facility] Name: Katya Hinojosa Age: 72 yrs Sex: Female : 1950 Arrival Date: 08/05/2022 Time: 16:33 Bed 10 Private MD: Diagnosis: Nausea;Headache Presentation: 08/05 16:36 Chief complaint: Nausea and nausea x 3-4 days, vomit x 1. Coronavirus screen: Client hb presents with at least one sign or symptom that may indicate coronavirus-19. Standard/surgical mask placed on the client. Provider contacted for isolation considerations. Ebola Screen: No symptoms or risks identified at this time. Initial Sepsis Screen: Does the patient meet any 2 criteria? No. Patient's initial sepsis screen is negative. Does the patient have a suspected source of infection? No. Patient's initial sepsis screen is negative. Risk Assessment: Do you want to hurt yourself or someone else? Patient reports no desire to harm self or others. Onset of symptoms was August 01, 2022. 16:36 Method Of Arrival: Ambulatory hb 16:36 Acuity: AMAYA 4 hb Historical: - Allergies: 16:37 No Known Drug Allergies; hb - PMHx: 16:37 Diabetes - NIDDM; High Cholesterol; Hypertension; Hypothyroidism; hb - Immunization history:: Adult Immunizations unknown. - Social history:: Patient/guardian denies using Smoking status: Patient/guardian denies using. Screenin:45 [facility] ED Fall Risk Assessment (Adult) Score/Fall Risk Level 0 - 2 = Low Risk hb Oriented to surroundings, Maintained a safe environment. Abuse screen: Denies threats or abuse. Denies injuries from another. Nutritional screening: No deficits noted. Tuberculosis screening: No symptoms or risk factors identified. Assessment: 17:15 General: Appears in no apparent distress. Behavior is calm, cooperative. Neuro: Level hb of Consciousness is awake, alert, obeys commands, Oriented to person, place, time, situation, Reports headache. Cardiovascular: Patient's skin is warm and dry. Respiratory: Respiratory effort is even, unlabored, Respiratory pattern is regular, symmetrical. GI: Reports cramping, nausea, vomiting. : No signs and/or symptoms were reported regarding the genitourinary system. EENT: No signs and/or symptoms were reported regarding the EENT system. Derm: Skin is pink, warm \T\ dry. Musculoskeletal: Reports body aches. 18:43 Reassessment: Patient appears in no apparent distress at this time. Patient and/or hb family updated on plan of care and expected duration. Pain level reassessed. Patient is alert, oriented x 3, equal unlabored respirations, skin warm/dry/pink. 19:10 General: US tech arrived to perform gallbladder exam. pf1 19:12 General: Appears in no apparent distress. comfortable, well groomed, well developed, pf1 Behavior is calm, cooperative, appropriate for age, quiet. Pain: Complains of pain in Patient C/O frontal headache of 4, resting on stretcher with eyes closed. Neuro: Level of Consciousness is awake, alert, obeys commands, Oriented to person, place, time, Reports headache frontal area, Pain of 4. Cardiovascular: No deficits noted. Capillary refill < 3 seconds Patient's skin is warm and dry. Respiratory: No deficits noted. Airway is patent Respiratory effort is even, unlabored, Respiratory pattern is regular, symmetrical. GI: Reports nausea, vomiting, Patient stated vomiting x 1 episode today. : No deficits noted. No signs and/or symptoms were reported regarding the genitourinary system. EENT: No deficits noted. No signs and/or symptoms were reported regarding the EENT system. Derm: No deficits noted. Skin is pink, warm \T\ dry. 21:05 General: Patient PO challenged at this time. pf1 21:20 General: Patient tolerated 180ml of water. Patient denies any nausea or vomiting at pf1 this time. . Vital Signs: 16:36 BP 137 / 58; Pulse 59; Resp 16; Temp 98.5; Pulse Ox 100% on R/A; Weight 89.36 kg; hb Height 5 ft. 5 in. (165.10 cm); Pain 7/10; 18:15 BP 128 / 64; Pulse 60; Resp 15; Pulse Ox 99% on R/A; hb 19:10 BP 133 / 68; Pulse 55; Resp 18; Temp 97.8; Pulse Ox 98% ; Pain 4/10; pf1 20:00 BP 119 / 54; Pulse 56; Resp 18; Pulse Ox 99% ; Pain 4/10; pf1 21:22 BP 123 / 69; Pulse 57; Resp 16; Temp 97.8; Pulse Ox 100% ; Pain 0/10; pf1 16:36 Body Mass Index 32.78 (89.36 kg, 165.10 cm) hb ED Course: 16:33 Patient arrived in ED. rg4 16:37 Wilner Yo PA is PHCP. cp 16:37 Manpreet Mckeon MD is Attending Physician. cp 16:37 Triage completed. hb 16:37 Arm band placed on. hb 16:42 Xochitl Rincon, RN is Primary Nurse. ll1 17:00 Initial lab(s) drawn, by me, sent to lab. Missed attempt(s): 22 gauge in left ll1 antecubital area. Bleeding controlled, band aid applied, catheter tip intact. 17:25 Inserted saline lock: 22 gauge in right antecubital area, using aseptic technique. ll1 Blood collected. 17:34 XRAY Chest (1 view) In Process Unspecified. EDMS 18:47 CT Head Brain wo Cont In Process Unspecified. EDMS 19:00 Patient has correct armband on for positive identification. Placed in gown. Bed in low pf1 position. Call light in reach. 19:12 Primary Nurse role handed off by Xochitl Rincon, RN mw2 19:39 US Abdomen Limited: gallbladder In Process Unspecified. EDMS 19:47 Lalita hurley, SEKOU is Primary Nurse. pf1 20:18 Troponin High Sensitivity: repeat 2000 Sent. pf1 21:23 No provider procedures requiring assistance completed. IV discontinued, intact, pf1 bleeding controlled, No redness/swelling at site. Pressure dressing applied. Administered Medications: 17:30 Drug: Tylenol 650 mg Route: PO; ll1 19:00 Follow up: Response: No adverse reaction; Marked relief of symptoms; Pain is decreased; pf1 RASS: Alert and Calm (0) 17:30 Drug: Promethazine 25 mg Route: IVP; Site: right antecubital; ll1 19:00 Follow up: Response: No adverse reaction; Marked relief of symptoms; Nausea is decreasedpf1 17:31 Drug: Zofran (Ondansetron) 4 mg Route: IVP; Site: right antecubital; ll1 19:00 Follow up: Response: No adverse reaction; Nausea is decreased pf1 Medication: 21:26 VIS not applicable for this client. pf1 Outcome: 20:56 Discharge ordered by . cp 21:24 Discharged to home ambulatory. pf1 21:24 Condition: improved 21:24 Discharge instructions given to patient, Instructed on discharge instructions, follow up and referral plans. medication usage, Demonstrated understanding of instructions, follow-up care, medications, Prescriptions given X 2. 21:26 Patient left the ED. pf1 Signatures: Dispatcher [employer] EDMS Wilner Yo PA PA cp Baxter, Heather RN RN Lis Kang 4 Timbo Gongora 2 Xochitl Rincon RN RN 1 Lalita hurley RN RN pf1
--- NOTE | 2022-08-05 20:57 | EDPHYS ---
Physician Documentation [facility] Name: Katya Hinojosa Age: 72 yrs Sex: Female : 1950 Arrival Date: 08/05/2022 Time: 16:33 Bed 10 Private MD: ED Physician Manpreet Mckeon HPI: 08/05 17:00 This 72 yrs old Female presents to ER via Ambulatory with complaints of cp Nausea/Vomiting, Headache. 17:00 The patient presents to the emergency department with nausea, that is mild. Onset: The cp symptoms/episode began/occurred 1 week(s) ago. 17:00 Possible causes: unknown. cp 17:00 Associated signs and symptoms: Pertinent positives: 1 episode of vomiting, mid chest cp burning pain, headache, Pertinent negatives: abdominal pain, anorexia, fever, chest pain. Severity of symptoms: in the emergency department the symptoms are unchanged despite home interventions. Historical: - Allergies: 16:37 No Known Drug Allergies; hb - PMHx: 16:37 Diabetes - NIDDM; High Cholesterol; Hypertension; Hypothyroidism; hb - Immunization history:: Adult Immunizations unknown. - Social history:: Patient/guardian denies using Smoking status: Patient/guardian denies using. ROS: 17:05 Constitutional: Negative for body aches, chills, fever, poor PO intake. cp 17:05 Eyes: Negative for injury, pain, redness, and discharge. cp 17:05 ENT: Negative for drainage from ear(s), ear pain, sore throat, difficulty swallowing, difficulty handling secretions. 17:05 Cardiovascular: Negative for chest pain, edema, palpitations. 17:05 Respiratory: Negative for cough, shortness of breath, wheezing. 17:05 Abdomen/GI: Positive for nausea, vomiting, Negative for abdominal pain, diarrhea, constipation, active vomiting. 17:05 Back: Negative for pain at rest, pain with movement, radiated pain. 17:05 : Negative for urinary symptoms. 17:05 Neuro: Positive for headache, Negative for altered mental status, numbness, syncope, weakness. 17:05 All other systems are negative. Exam: 17:10 Constitutional: The patient appears in no acute distress, alert, awake, cp non-diaphoretic, non-toxic, well developed, well nourished. 17:10 Head/Face: Normocephalic, atraumatic. cp 17:10 Eyes: Periorbital structures: appear normal, Conjunctiva: normal, no exudate, no injection, Sclera: no appreciated abnormality, Lids and lashes: appear normal, bilaterally. 17:10 ENT: External ear(s): are unremarkable, Nose: is normal, Mouth: Lips: moist, Oral mucosa: pink and intact, moist, Posterior pharynx: Airway: no evidence of obstruction, patent. 17:10 Chest/axilla: Inspection: normal. 17:10 Cardiovascular: Rate: bradycardic, Rhythm: regular, Edema: is not appreciated, JVD: is not appreciated. 17:10 Respiratory: the patient does not display signs of respiratory distress, Respirations: normal, no use of accessory muscles, no retractions, labored breathing, is not present, Breath sounds: are clear throughout, no decreased breath sounds, no stridor, no wheezing. 17:10 Abdomen/GI: Inspection: abdomen appears normal, Bowel sounds: active, all quadrants, Palpation: abdomen is soft and non-tender, in all quadrants. 17:10 Back: pain, is absent, ROM is normal. 17:10 Neuro: Orientation: to person, place \T\ time. Mentation: is normal, Cerebellar function: is grossly normal, Motor: moves all fours, strength is normal, Sensation: is normal. 17:22 ECG was reviewed by the Attending Physician. cp Vital Signs: 16:36 BP 137 / 58; Pulse 59; Resp 16; Temp 98.5; Pulse Ox 100% on R/A; Weight 89.36 kg; hb Height 5 ft. 5 in. (165.10 cm); Pain 7/10; 18:15 BP 128 / 64; Pulse 60; Resp 15; Pulse Ox 99% on R/A; hb 19:10 BP 133 / 68; Pulse 55; Resp 18; Temp 97.8; Pulse Ox 98% ; Pain 4/10; pf1 20:00 BP 119 / 54; Pulse 56; Resp 18; Pulse Ox 99% ; Pain 4/10; pf1 21:22 BP 123 / 69; Pulse 57; Resp 16; Temp 97.8; Pulse Ox 100% ; Pain 0/10; pf1 16:36 Body Mass Index 32.78 (89.36 kg, 165.10 cm) hb MDM: 16:38 Patient medically screened. cp 20:55 Data reviewed: vital signs, nurses notes, lab test result(s), EKG, radiologic studies, cp CT scan, plain films, ultrasound. 20:55 Test interpretation: by ED physician or midlevel provider: ECG, plain radiologic cp studies. Counseling: I had a detailed discussion with the patient and/or guardian regarding: the historical points, exam findings, and any diagnostic results supporting the discharge/admit diagnosis, lab results, radiology results, the need for outpatient follow up, a family practitioner, to return to the emergency department if symptoms worsen or persist or if there are any questions or concerns that arise at home. Response to treatment: the patient's symptoms have markedly improved after treatment, and as a result, I will discharge patient. ED course: VSS. Nausea and headache markedly improved. Low suspicion as cardiac cause of symptoms with EKG negative for significant change from previous and 2 serum troponin wnl. Will discharge to home for continued monitoring. 08/05 16:37 Order name: COVID-19/FLU A+B; Complete Time: 17:45 hb 08/05 16:59 Order name: Basic Metabolic Panel; Complete Time: 17:45 cp 08/05 17:45 Interpretation: Normal except: GLUC 159; GFR 80. cp 08/05 16:59 Order name: CBC with Diff; Complete Time: 17:45 cp 08/05 17:53 Interpretation: Normal except: EOSINOPHIL % 4.5. cp 08/05 16:59 Order name: LFT's; Complete Time: 17:45 cp 08/05 16:59 Order name: Troponin HS; Complete Time: 17:45 cp 08/05 17:54 Interpretation: Troponin HS 6.7; Reviewed. 08/05 19:52 Order name: Troponin High Sensitivity: repeat 1999; Complete Time: 20:49 cp 08/05 16:59 Order name: XRAY Chest (1 view); Complete Time: 17:45 cp 08/05 17:45 Interpretation: Report reviewed. 08/05 16:59 Order name: EKG; Complete Time: 17:00 cp 08/05 18:21 Order name: US Abdomen Limited: gallbladder; Complete Time: 19:52 cp 08/05 19:53 Interpretation: Report reviewed. 08/05 18:21 Order name: CT Head Brain wo Cont; Complete Time: 19:52 cp 08/05 16:59 Order name: EKG - Nurse/Tech; Complete Time: 17:19 cp 08/05 16:59 Order name: IV Saline Lock; Complete Time: 17:31 cp 08/05 16:59 Order name: Labs collected and sent; Complete Time: 17:10 cp 08/05 16:59 Order name: O2 Per Protocol; Complete Time: 17:10 cp 08/05 16:59 Order name: O2 Sat Monitoring; Complete Time: 17:10 cp 08/05 20:49 Order name: PO challenge; Complete Time: 21:23 cp EC: Rate is 56 beats/min. Rhythm is regular. [place] interval is normal. QRS interval is normal. cp QT interval is normal. T waves are Inverted in leads III, aVF. Interpreted by me. Reviewed by me. Administered Medications: 17:30 Drug: Tylenol 650 mg Route: PO; ll1 19:00 Follow up: Response: No adverse reaction; Marked relief of symptoms; Pain is decreased; pf1 RASS: Alert and Calm (0) 17:30 Drug: Promethazine 25 mg Route: IVP; Site: right antecubital; ll1 19:00 Follow up: Response: No adverse reaction; Marked relief of symptoms; Nausea is decreasedpf1 17:31 Drug: Zofran (Ondansetron) 4 mg Route: IVP; Site: right antecubital; ll1 19:00 Follow up: Response: No adverse reaction; Nausea is decreased pf1 Disposition Summary: 08/05/22 20:56 Discharge Ordered Location: Home cp Problem: new cp Symptoms: have improved cp Condition: Stable cp Diagnosis - Nausea cp - Headache cp Followup: cp - With: Private Physician - When: 2 - 3 days - Reason: Recheck today's complaints Discharge Instructions: - Discharge Summary Sheet cp - General Headache Without Cause cp - Nausea, Adult cp Forms: - Work release form cp - Medication Reconciliation Form cp - Thank You Letter cp - Antibiotic Education cp - Prescription Opioid Use cp Prescriptions: - Protonix 40 mg Oral Tablet - take 1 tablet by ORAL route once daily; 30 tablet; Refills: 0, Product cp Selection Permitted - promethazine 25 mg Oral Tablet - take 1 tablet by ORAL route every 6 hours As needed; 20 tablet; Refills: 0, cp Product Selection Permitted Addendum: 08/06/2022 21:33 Co-signature as Attending Physician, Manpreet Mckeon MD I agree with the assessment and r t plan of care. Signatures: Dispatcher [employer] EDMS Wilner Yo PA PA cp Deisy Fleming RN RN hb Xochitl Rincon RN RN ll1 Manpreet Mckeon MD MD rt Lalita hurley RN RN pf1 Corrections: (The following items were deleted from the chart) 15:12 12 17:00 Associated signs and symptoms: Pertinent positives: 1 episode of vomiting, cp mid chest burning pain, Pertinent negatives: abdominal pain, anorexia, fever, chest pain, cp
[2022-08-05 21:51] VITALS: TEMP 97.8
[2022-08-05 21:53] VITALS: BP 123/69; O2SAT 100
--- NOTE | 2022-08-07 17:26 | EKG ---
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
== END 2022-08-05 21:26 | disposition home or self-care (01) ==
LOC: ER 16:30
DX: R51.9 Headache, unspecified (principal); R11.0 Nausea; Z20.822 Contact with and (suspected) exposure to COVID-19; I10 Essential (primary) hypertension
CPT/HCPCS: 93005; 85025; 80048; 36415; 80076; 84484 ×2; 0240U; 70450; 71045; 76705; 96375; 96374; 99284; J2550; J2405

== ENCOUNTER 2022-12-13 08:57 | Emergency (ER) | payer OTHER ==
--- OUTSIDE RECORDS SUMMARY | 2022-12-13 09:15 | XMS REPORT | Continuity of Care Document ---
:[address] [facility] t Address [address] [place] [address] Care Team Providers Name Role Phone Mike Zamudio DO Primary Care Physician [phone] Mike Zamudio Attending Clinician Unavailable Duran Wylie MD Attending Clinician DURAN WYLIE Attending Clinician Unavailable Duran Wylie MD Attending Clinician DURAN WYLIE Attending Clinician Unavailable Sheila Rudd MD Attending Clinician Stan Garrido MD Attending Clinician RADIOLOGY Attending Clinician Unavailable Radiology Attending Clinician Unavailable Doctor Unassigned, [place] Attending Clinician Unavailable Be Silva MD Attending Clinician Only, Ang Db Test Attending Clinician Unavailable Krystle Carmichael Attending Clinician KRYSTLE FOWLER Attending Clinician Unavailable Elenita Humphreys MD Attending Clinician Saleem Louise MD Attending Clinician Lab, Ang - Db Attending Clinician Unavailable SALEEM LOUISE Attending Clinician Unavailable SALEEM LOUISE Attending Clinician Unavailable ALLEN MONSALVE Attending Clinician Unavailable Allen Monsalve DO Attending Clinician [place] [facility], Willie B Attending Clinician Lab, Adc Fam Pob I Attending Clinician Unavailable DURAN WYLIE Admitting Clinician Unavailable DURAN WYLIE Admitting Clinician Unavailable JAVI SHANKS Admitting Clinician Unavailable PRINCE MELCHOR Admitting Clinician Unavailable ALLEN MONSALVE Admitting Clinician Unavailable Payers Payer Name Policy Type Policy Number Effective Date Expiration Date Ave vela [employer] [id number] 2018spring 00:00:00 RewardableSpr C1 [id number] Common Sp maria ines ing Medicare - [facility] Problems Condition Condition Condition Status Onset Resolution Last Treating Co mments Source Name Details Category Date Date Treatment Clinician Date 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, carcinoma, 212 [facility]lege left left 00:00: of Medicin e Renal mass Renal mass Disease Active [facility] 09-09 [facility] 00:00: Medical [address] [place] [address] Dyslipidem Dyslipidem Disease Active 2015-08 U corina ia ia 2-06 ity of 00:00: [place] 00 Medical Branch Prediabete Prediabete Disease Active U corina s s 9-06 ity of 00:00: [place] [facility] Dizzy Dizzy Disease Active 2014-08 Univers spells spells 2-04 ity of 00:00: [place] 00 Medical Branch Palpitatio Palpitatio Disease Active 2014-08 U corina ns ns 2-04 ity of 00:00: [place] 00 [facility] Shortness Shortness Disease Active 2014-08 Uni vers of breath of breath 2-04 ity of 00:00: [place] 00 Medical Branch Atypical Atypical Disease Active 2014-08 Unive rs chest pain chest pain 2-04 it y of 00:00: [place] 00 Medical Branch Postsurgic Postsurgic Disease Active 2014-08 U corina al al 2- ity of hypothyro[place] dis[place] dis[place] 00 [facility] [id number] Other Problem Common chronic Spirit pain - [facility] Disorder 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 [facility] [id number] History of Problem Co mmon diabetes Spirit mellitus - [facility] [id number] Essential Problem Comm on hypertensi Spirit on - [facility] [id number] Gastroesop Problem Co mmon hageal Spirit reflux - CHI disease [facility] esophagiti Medica s [place] [id number] Primary Problem Commo n osteoarthr Spirit itis, - CHI unspecifie [facility] Acquired Acquired Problem Commo n hypothyroi hypothyroi Sp maria ines dism dism - [facility] [id number] Encounter Problem Com mon for Spirit [facility] abnormal Center finding [id number] Body mass Problem Com mon index Spirit (BMI) - CHI 32.0-32.9, [facility] [id number] Other Problem Common obesity Spirit due to - CHI excess [facility] [id number] Type 2 Problem Common diabetes Spirit mellitus - CHI with 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 [facility] [id number] JENNY Problem Common (generaliz Spirit ed anxiety - CHI disorder) [facility] [id number] Mixed Problem Common hyperlipid Spirit emia - [facility] [id number] Constipati Problem Com mon on, Spirit unspecifie - CHI d constipati [facility] on [facility] [id number] Current Problem Common moderate Spirit episode of - CHI major [facility] without [place] prior episode No known No known Disease [facility] active active College problems problems of Medicin e Allergies, Adverse Reactions, Alerts Allergy Allergy Status Severity Reaction(s) Onset Inactive Treating Comm ents Source Name Type Date Date Clinician NO KNOWN Drug Active Univers ALLERGIE Class ity of S [facility] [place] [facility] NO KNOWN Allergy Active [facility] Social History Social Habit Start Date Stop Date Quantity Comments Source History of Common Spirit - Tobacco Use [facility] Alcohol intake 2022-10-20 2022-10-20 Lifetime [facility] Col lege 00:00:00 00:00:00 non-drinker of Medicine (finding) Exposure to 2022-09-17 2022-09-27 Not sure [facility] Colleg e SARS-CoV-2 00:00:00 11:32:00 of Medicine (event) Tobacco use and 2022-07-28 2022-07-28 Smokeless tobacco [facility] [employer] exposure 00:00:00 00:00:00 non-user of Medicine Sex Ass[birth year] F [facility] 00:00:00 00:00:00 [facility] Smoking Status Start Date Stop Date Source Never smoked tobacco [facility] e[facility] of Medicine Medications Ordered Filled Start Stop Current Ordering Indication Dosage Frequency Signature Comments Components Source Medication Medication Date Date Medication? Clinician (SIG) Name Name losartan-hy Yes 1{tbl} Take 1 [facility] drochloroth 3-08 Tablet by Col lege iazide 13:54: mouth of (HYZAAR) 04 daily. Medicin 100-12.5 MG e per tablet famotidine Yes 20mg Q.5D Take [address] (PEPCID) 20 1-28 by mouth 2 Cira kes MG tablet 14:49: (two) Medical 14 times Center daily. esomeprazol Yes 40mg QD Take [address] [facility] (NexIUM) 1-28 by mouth [facility] 40 MG 14:49: daily. Medical capsule 14 Center sertraline Yes 50mg QD Take [address] (ZOLOFT) 50 1-28 by mouth Luke s MG tablet 14:49: daily. Medica l 14 Center metFORMIN Yes 500mg Take [address] (GLUCOPHAGE 1-28 mg by [facility]ukes ) 500 MG 14:49: mouth 2 Medica l tablet 14 (two) Center times daily with breakfast and dinner. levothyroxi Yes 125ug Take [address] ne 1-28 mcg by [facility]ukes (SYNTHROID, 14:49: mouth Medic al LEVOTHROID) 14 Every Center 125 MCG morning on tablet an empty stomach. amLODIPine 0 Yes 5mg QD Take [address] (NORVASC) 5 1-28 by mouth Luke s MG tablet 14:49: daily. Medica l 14 [place] carvediloL 0 Yes 12.5mg Take 12.[address] (COREG) 1-28 mg by [facility]ukes 12.5 MG 14:49: mouth 2 Medical tablet 14 (two) Center times daily with breakfast and dinner. atorvastati 0 Yes 10mg QD Take [address] n (LIPITOR) 1-28 by mouth Luke s 10 MG 14:49: daily. Medical tablet 14 Center ondansetron 0 Yes 4mg Take [address] (ZOFRAN) 4 -28 by mouth 2 Melissa es MG tablet 14:49: (two) Medical 14 times Center daily as needed for Nausea. losartan 0 Yes 25mg QD Take [address] 12.5 MG -28 by mouth [facility]ukes halftab 14:49: daily. Medical half tablet 14 [place] famotidine Yes 20mg Q.5D Take [address] (PEPCID) 20 1-28 by mouth 2 Cira kes MG tablet 14:49: (two) Medical 14 times Center daily. esomeprazol 0 Yes 40mg QD Take [address] [facility] (NexIUM) 1-28 by mouth [facility]ukes 40 MG 14:49: daily. Medical capsule 14 [place] sertraline 0 Yes 50mg QD Take [address] (ZOLOFT) 50 -28 by mouth Luke s MG tablet 14:49: daily. Medica l 14 [place] metFORMIN 0 Yes 500mg Take [address] (GLUCOPHAGE 1-28 mg by [facility]ukes ) 500 MG 14:49: mouth 2 Medica l tablet 14 (two) Center times daily with breakfast and dinner. levothyroxi 0 Yes 125ug Take [address] ne 1-28 mcg by Lukes (SYNTHROID, 14:49: mouth Medic al LEVOTHROID) 14 Every Center 125 MCG morning on tablet an empty stomach. amLODIPine 0 Yes 5mg QD Take [address] (NORVASC) 5 1-28 by mouth Luke s MG tablet 14:49: daily. Medica l 14 [place] carvediloL 0 Yes 12.5mg Take 12.[address] (COREG) 1-28 mg by [facility]ukes 12.5 MG 14:49: mouth 2 Medical tablet 14 (two) Center times daily with breakfast and dinner. atorvastati 0 Yes 10mg QD Take [address] n (LIPITOR) -28 by mouth Luke s 10 MG 14:49: daily. Medical tablet 14 Center ondansetron 0 Yes 4mg Take [address] (ZOFRAN) 4 -28 by mouth 2 Melissa es MG tablet 14:49: (two) Medical 14 times Center daily as needed for Nausea. losartan 0 Yes 25mg QD Take [address] 12.5 MG -28 by mouth [facility]ukes halftab 14:49: daily. Medical half tablet 14 [place] famotidine 0 Yes 20mg Q.5D Take [address] (PEPCID) 20 - by mouth 2 Cira kes MG tablet 14:49: (two) Medical 14 times Center daily. esomeprazol 0 Yes 40mg QD Take [address] e (NexIUM) - by mouth [facility] 40 MG 14:49: daily. Medical capsule 14 [place] sertraline 0 Yes 50mg QD Take [address] (ZOLOFT) 50 -28 by mouth Luke s MG tablet 14:49: daily. Medica l 14 [place] metFORMIN 0 Yes 500mg Take [address] (GLUCOPHAGE 1-28 mg by [facility]ukes ) 500 MG 14:49: mouth 2 Medica l tablet 14 (two) Center times daily with breakfast and dinner. levothyroxi 0 Yes 125ug Take [address] ne 1-28 mcg by Lukes (SYNTHROID, 14:49: mouth Medic al LEVOTHROID) 14 Every Center 125 MCG morning on tablet an empty stomach. amLODIPine 2022-0 Yes 5mg QD Take [address] (NORVASC) 5 1-28 by mouth Luke s MG tablet 14:49: daily. Medica l 14 [place] carvediloL 0 Yes 12.5mg Take 12.[address] (COREG) 1-28 mg by Lukes 12.5 MG 14:49: mouth 2 Medical tablet 14 (two) Center times daily with breakfast and dinner. atorvastati 0 Yes 10mg QD Take [address] n (LIPITOR) -28 by mouth Luke s 10 MG 14:49: daily. Medical tablet 14 Center ondansetron 0 Yes 4mg Take [address] (ZOFRAN) 4 -28 by mouth 2 Melissa es MG tablet 14:49: (two) Medical 14 times Center daily as needed for Nausea. losartan 0 Yes 25mg QD Take [address] 12.5 MG -28 by mouth [facility]ukes halftab 14:49: daily. Medical half tablet 14 Center metformin 0 Yes 500mg Take 500 [place] h[facility]ctor (GLUCOPHAGE 1-28 mg by [place] ) 500 MG 00:00: mouth. of tablet 00 Medicin e losartan 0 Yes 25mg Take 25 mg [place] h[facility]ctor (COZAAR) 25 1-28 by mouth [place] e[facility] MG tablet 00:00: daily. of 00 Medicin e levothyroxi 0 Yes 125ug Take 125 [facility] ne 1-28 mcg by [place] (SYNTHROID) 00:00: mouth. of 125 MCG 00 Medicin tablet e metformin 0 Yes 500mg Take 1 [facility] (GLUCOPHAGE 1-28 Tablet by Col lege ) 500 MG 00:00: mouth. of tablet 00 Medicin e losartan 0 Yes 25mg Take 1 [facility] (COZAAR) 25 1-28 Tablet by Col lege MG tablet 00:00: mouth of 00 daily. Medicin e levothyroxi 0 Yes 125ug Take 1 [place] héctor ne 1-28 Tablet by [place] (SYNTHROID) 00:00: mouth. of 125 MCG 00 Medicin tablet e atorvastati 0 Yes 10mg Take 1 [facility] (LIPITOR) 1-28 Tablet by Col lege 10 MG 00:00: mouth of tablet 00 daily. Medicin e acetaminoph 2022-0 2022- No 1{tbl} Take [address] en-codeine - 02-07 tablet by Melissa es (Tylenol-Co 00:00: 23:59 mouth Medi tito deine #3) 00 :00 every 6 Center 300-30 mg (six) per tablet hours as needed for Pain for up to 10 days. Max Daily Amount: 4 tablets docusate 2023-0 2023- No 100mg Take 1 CHI S t sodium 09-11 capsule [facility]ukes (COLACE) 00:00: 23:59 (100 mg Medic al 100 MG 00 :00 total) by Center capsule mouth daily as needed for up to 10 days. methocarbam 2023-0 2023- No 500mg [id number] Take [address] oL 09-11 [id number] tablet [facility] (ROBAXIN) 00:00: 23:59 3D (500 mg Medi tito 500 MG 00 :00 total) by Center tablet mouth 3 (three) times daily for 10 days. acetaminoph 2023-0 3- No 1{tbl} Take [address] en-codeine 09-11 tablet by Melissa es (Tylenol-Co 00:00: 23:59 mouth Medi tito deine #3) 00 :00 every 6 Center 300-30 mg (six) per tablet hours as needed for Pain for up to 10 days. Max Daily Amount: 4 tablets docusate 2023-0 2023- No 100mg Take 1 CHI S t sodium 09-11 capsule [facility] (COLACE) 00:00: 23:59 (100 mg Medic al 100 MG 00 :00 total) by Center capsule mouth daily as needed for up to 10 days. methocarbam 2023-0 2023- No 500mg [id number] Take [address] oL 09-11 [id number] tablet [facility] (ROBAXIN) 00:00: 23:59 3D (500 mg Medi tito 500 MG 00 :00 total) by Center tablet mouth 3 (three) times daily for 10 days. acetaminoph 2023-0 2023- No 1{tbl} Take [address] en-codeine 09-11 tablet by Melissa es (Tylenol-Co 00:00: 23:59 mouth Medi tito deine #3) 00 :00 every 6 Center 300-30 mg (six) per tablet hours as needed for Pain for up to 10 days. Max Daily Amount: 4 tablets docusate 2023-0 2023- No 100mg Take 1 CHI S t sodium 09-11 capsule [facility] (COLACE) 00:00: 23:59 (100 mg Medic al 100 MG 00 :00 total) by Center capsule mouth daily as needed for up to 10 days. methocarbam 2022- No 500mg Q.[id number] Take [address] oL 09-11 [id number] tablet [facility] (ROBAXIN) 00:00: 23:59 3D (500 mg Medi tito 500 MG 00 :00 total) by Center tablet mouth 3 (three) times daily for 10 days. No known 2021-[address] [facility] r medications 2- medication Co llege 12:48: s of 10 Medicin e gadobenate 2021-08- No [id number] .2mL/kg 0.2 mL/kg, Univers dimeglumine 08-16 Intravenou i ty of (MULTIHANCE 22:45: 22:43 s, ONCE, 1 [place] -20 mL) 00 :00 dose, On Medical injection Wed Branch 0.2 mL/kg 06/16/22 at 1745, Routine iopamidol 2021-08- No [id number] 74mL 74 mL, U nivers (ISOVUE 05-15 [...] M 30-2-10 MG/5ML MG/5ML 00 :00 MG/5ML esomeprazol Yes 40mg Take 40 mg [facility] e (NEXIUM) 7-18 by mouth Colle ge 40 MG 00:00: daily. of capsule 00 Medicin e esomeprazol Yes 40mg Take 1 [facility] (NEXIUM) 7-18 capsule by Col lege 40 MG 00:00: mouth of capsule 00 daily. Medicin e amitriptyli Yes [id number] 25mg Take 1 Univers ne 25 mg 3-24 tablet by ity of tablet 00:00: mouth at [place] [address] bedtime. Medical Branch amitriptyli Yes [id number] 25mg Take 1 Univers ne 25 mg 3-24 tablet by ity of tablet 00:00: mouth at [place] [address] bedtime. Medical Branch amitriptyli Yes [id number] 25mg Take 1 Univers ne 25 mg 3-24 tablet by ity of tablet 00:00: mouth at [place] [address] bedtime. Medical Branch amitriptyli Yes [id number] 25mg Take 1 Univers ne 25 mg 3-24 tablet by ity of tablet 00:00: mouth at [place] [address] bedtime. Medical Branch amitriptyli Yes [id number] 25mg Take 1 Univers ne 25 mg 3-24 tablet by ity of tablet 00:00: mouth at [place] [address] bedtime. Medical Branch amitriptyli Yes [id number] 25mg Take 1 Univers ne 25 mg 3-24 tablet by ity of tablet 00:00: mouth at [place] [address] bedtime. Medical Branch amitriptyli 0 Yes [id number] 25mg Take 1 Univers ne 25 mg 3-24 tablet by ity of tablet 00:00: mouth at [place] [address] bedtime. Medical Branch amitriptyli 0 Yes [id number] 25mg Take 1 Univers ne 25 mg 3-24 tablet by ity of tablet 00:00: mouth at [place] [address] bedtime. Medical Branch amitriptyli Yes [id number] 25mg Take 1 Univers ne 25 mg 3-24 tablet by ity of tablet 00:00: mouth at [place] [address] bedtime. Medical Branch amitriptyli 2022-0 Yes [id number] 25mg Take 1 Univers ne 25 mg 3-24 tablet by ity of tablet 00:00: mouth at [place] [address] bedtime. Medical Branch amitriptyli 2021-0 Yes [id number] 25mg Take 1 Univers ne 25 mg 3-24 tablet by ity of tablet 00:00: mouth at [place] [address] bedtime. Medical Branch amitriptyli 2021-0 Yes [id number] 25mg Take 1 Univers ne 25 mg 3-24 tablet by ity of tablet 00:00: mouth at [place] [address] bedtime. Medical Branch amitriptyli 2021-0 Yes 25mg Take 1 [facility] (ELAVIL) 3-24 Tablet by Col lege 25 MG 00:00: mouth at of tablet 00 bedtime. Medicin e amLODIPine 0 Yes Univers 10 mg 3-21 ity of tablet 00:00: [place] [address] Medical Branch amLODIPine 2021-0 Yes Univers 10 mg 3-21 ity of tablet 00:00: [place] [address] Medical Branch amLODIPine 2-0 Yes Univers 10 mg 3-21 ity of tablet 00:00: [place] [address] Medical Branch amLODIPine 2021-0 Yes Univers 10 mg 3-21 ity of tablet 00:00: [place] [address] Medical Branch amLODIPine 2-0 Yes Univers 10 mg 3-21 ity of tablet 00:00: [place] [address] Medical Branch amLODIPine 2-0 Yes Univers 10 mg 3-21 ity of tablet 00:00: [place] [address] Medical Branch amLODIPine 2-0 Yes Univers 10 mg 3-21 ity of tablet 00:00: [place] [facility] amLODIPine 2-0 Yes Univers 10 mg 3-21 ity of tablet 00:00: [place] [address] Medical Branch amLODIPine 2-0 Yes Univers 10 mg 3-21 ity of tablet 00:00: [place] [address] Medical Branch amLODIPine 2-0 Yes Univers 10 mg 3-21 ity of tablet 00:00: [place] [address] Medical Branch amLODIPine 2-0 Yes Univers 10 mg 3-21 ity of tablet 00:00: [place] [address] Medical Branch amLODIPine 2-0 Yes Univers 10 mg 3-21 ity of tablet 00:00: [place] [address] Medical Branch amLODIPine 2-0 Yes Univers 10 mg 3-21 ity of tablet 00:00: [place] 00 Medical Branch ondansetron 2022-0 Yes 4mg [...] by mouth ity of tablet 00:00: daily. [place] [facility] SERTraline 0 Yes 50mg Take 50 mg U nivers 50 mg 2-14 by mouth ity of tablet 00:00: daily. [place] [facility] SERTraline 2021-0 Yes 50mg Take 50 mg U nivers 50 mg 2-14 by mouth ity of tablet 00:00: daily. [place] [facility] SERTraline 2021-0 Yes 50mg Take 50 mg U nivers 50 mg 2-14 by mouth ity of tablet 00:00: daily. [place] [facility] SERTraline 2021-0 Yes 50mg Take 50 mg U nivers 50 mg 2-14 by mouth ity of tablet 00:00: daily. [place] [facility] SERTraline 2021-0 Yes 50mg Take 50 mg U nivers 50 mg 2-14 by mouth ity of tablet 00:00: daily. [place] [facility] SERTraline 2022-0 Yes 50mg Take 50 mg U nivers 50 mg 2-14 by mouth ity of tablet 00:00: daily. [place] [facility] SERTraline 0 Yes 50mg Take 50 mg U nivers 50 mg 2-14 by mouth ity of tablet 00:00: daily. [place] [facility] SERTraline 0 Yes 50mg Take 50 mg U nivers 50 mg 2-14 by mouth ity of tablet 00:00: daily. [place] [facility] SERTraline 0 Yes 50mg Take 50 mg U nivers 50 mg 2-14 by mouth ity of tablet 00:00: daily. [place] [facility] SERTraline 0 Yes 50mg Take 50 mg U nivers 50 mg 2-14 by mouth ity of tablet 00:00: daily. [place] [facility] SERTraline Yes 50mg Take 50 mg U nivers 50 mg 2-14 by mouth ity of tablet 00:00: daily. [place] [facility] SERTraline Yes 50mg Take 50 mg U nivers 50 mg 2-14 by mouth ity of tablet 00:00: daily. [place] [facility] Synthroid Synthroid No QD 125 MCG 125 MCG 2-03 00:00: 00 Synthroid Synthroid 0 No QD 125 MCG 125 MCG 2-03 00:00: 00 Synthroid Synthroid 2021-0 No QD Synthroid 125 MCG 125 MCG 2-03 125 MCG 00:00: 00 Synthroid Synthroid 2021-0 No QD Synthroid 125 MCG 125 MCG 2-03 125 MCG 00:00: 00 Synthroid Synthroid 2021-0 No QD Synthroid 125 MCG 125 MCG 2-03 125 MCG 00:00: 00 carvedilol 2020-08 Yes 12.5mg Take 12.5 [facility] (COREG) 2-21 mg by College 12.5 MG 00:00: mouth. of tablet Medicin e carvedilol 2020-08 Yes 12.5mg Take 1 [place] [facility] (COREG) 2-21 Tablet by College 12.5 MG 00:00: mouth. of tablet Medicin e amlodipine 2020-08 Yes 5mg Take 5 mg [facility] (NORVASC) 5 2-07 by mouth [place] [facility] MG tablet 00:00: daily. of 00 Medicin e amlodipine 2020-08 Yes 5mg Take 1 [facility] (NORVASC) 5 2-07 Tablet by Col lege MG tablet 00:00: mouth of 00 daily. Medicin e Synthroid Synthroid 2020-08 No QD Synthroid 112 MCG 112 MCG 2-07 112 MCG 00:00: 00 Synthroid Synthroid 2020-08 No QD Synthroid 112 MCG 112 MCG 2-07 112 MCG 00:00: 00 Synthroid Synthroid 2020-08 No QD Synthroid 112 MCG 112 MCG 2-07 112 MCG 00:00: 00 sertraline Yes 50mg Take 50 mg [facility] (ZOLOFT) 50 4-19 by mouth [place] [facility] MG tablet 00:00: daily. of 00 Medicin e sertraline Yes 50mg Take 1 [facility] (ZOLOFT) 50 4-19 Tablet by Col lege MG tablet 00:00: mouth of 00 daily. Medicin e Rocephin Rocephin 2020-0 No 1g Commo n (Ceftriaxon (Ceftriaxon 8-20 S pirit e) e) 00:00: - [facility]I 00 [facility] Rocephin Rocephin 2020-0 No 1g Commo n (Ceftriaxon (Ceftriaxon 8-20 S pirit e) e) 00:00: - CHI 00 [facility] Rocephin Rocephin 2020-0 No 1g Commo n (Ceftriaxon (Ceftriaxon 8-20 S pirit e) e) 00:00: - CHI 00 [facility] Rocephin Rocephin 2020-0 No 1g Commo n (Ceftriaxon (Ceftriaxon 8-20 S pirit e) e) 00:00: - CHI 00 [facility] Rocephin Rocephin 2020-0 No 1g Commo n (Ceftriaxon (Ceftriaxon 8-20 S pirit e) e) 00:00: - CHI 00 [facility] Rocephin Rocephin 2020-0 No 1g Commo n (Ceftriaxon (Ceftriaxon 8-20 S pirit e) e) 00:00: - CHI 00 [facility] Rocephin Rocephin 2020-0 No 1g Commo n (Ceftriaxon (Ceftriaxon 8-20 S pirit e) e) 00:00: - CHI 00 [facility] Rocephin Rocephin 2020-0 No 1g Commo n (Ceftriaxon (Ceftriaxon 8-20 S pirit e) e) 00:00: - CHI 00 [facility] Rocephin Rocephin 2020-0 No 1g Commo n (Ceftriaxon (Ceftriaxon 8-20 S pirit e) e) 00:00: - CHI 00 [facility] Rocephin Rocephin 2020-0 No 1g Commo n (Ceftriaxon (Ceftriaxon 8-20 S pirit e) e) 00:00: - CHI 00 [facility] Rocephin Rocephin 2020-0 No 1g Commo n (Ceftriaxon (Ceftriaxon 8-20 S pirit e) e) 00:00: - CHI 00 [facility] Rocephin Rocephin 2020-0 No 1g Commo n (Ceftriaxon (Ceftriaxon 8-20 S pirit e) e) 00:00: - CHI 00 [facility] Rocepmin Rocephin 2020-0 No 1g Commo n (Ceftriaxon (Ceftriaxon 8-20 S pirit e) e) 00:00: - CHI 00 [facility] Rocephin Rocephin 2020-0 No 1g Commo n (Ceftriaxon (Ceftriaxon 8-20 S pirit e) e) 00:00: - CHI 00 [facility] Rocepmin Rocephin 2020-0 No 1g Commo n (Ceftriaxon (Ceftriaxon 8-20 S pirit e) e) 00:00: - CHI 00 [facility] Ondansetron Ondansetron 2020-0 Yes Mike 1 tablet Common HCl HCl 7-24 Zamudio Spirit 00:00: - CHI 00 [facility] Jardiance Jardiance 2020-0 Yes Mike 1 tablet Common 7-24 Zamudio Spirit 00:00: - CHI 00 [facility] MetFORMIN MetFORMIN 2020-0 Yes Mike 2 tablets Common HCl ER HCl ER 7-14 Zamudio with meal Spiri t 00:00: - CHI 00 [facility] Tradjenta Tradjenta 2020-0 Yes Mike 1 tablet Common 7-14 Zamudio Spirit 00:00: - CHI 00 [facility] Restasis Restasis Yes Mike 1 drop C ommon 5-28 Zamudio into Spirit 00:00: affected - CHI 00 eye as [facility] Restasis Restasis No 1{drop_ BID Restasis [...] 00:00: n to - CHI 00 affected [facility] Nystatin Nystatin No 1{appli BID Nystatin 132178 726975 8-06 cation_ [id number] UNIT/GM UNIT/GM 00:00: to_affe UNIT/GM 00 cted_ar ea} Nystatin Nystatin No 1{appli BID Nystatin 537981 [id number] 8-06 cation_ [id number] UNIT/GM UNIT/GM 00:00: to_affe UNIT/GM 00 cted_ar ea} Nystatin Nystatin No 1{appli BID Nystatin 597395 989047 8-06 cation_ [id number] UNIT/GM UNIT/GM 00:00: to_affe UNIT/GM 00 cted_ar ea} Nystatin Nystatin 2018- No 1{appli BID Nystatin 279453 248442 8-06 cation_ 415110 UNIT/GM UNIT/GM 00:00: to_affe UNIT/GM 00 cted_ar ea} omeprazole 2018- Yes [id number] 40mg Take 2 Univers 20 mg 2-13 tablets by ity of tablet 00:00: mouth [place] 00 daily. Medical Branch ondansetron 2019-0 Yes [id number] 4mg Take 1 Univers (ZOFRAN 2-13 tablet by ity of ODT) 4 mg 00:00: mouth [place] disintegrat 00 every 8 Medic al ing tablet (eight) Branch hours as needed for Nausea and Vomiting (N/V). omeprazole 2019-0 Yes [id number] 40mg Take 2 Univers 20 mg 2-13 tablets by ity of tablet 00:00: mouth [place] 00 daily. [facility] ondansetron 2019-0 Yes [id number] 4mg Take 1 [facility] (ZOFRAN 2-13 tablet by ity of ODT) 4 mg 00:00: mouth [place] disintegrat 00 every 8 Medic al ing tablet (eight) Branch hours as needed for Nausea and Vomiting (N/V). omeprazole 2019-0 Yes [id number] 40mg Take 2 [facility] 20 mg 2-13 tablets by ity of tablet 00:00: mouth [place] 00 daily. [facility] Branch ondansetron 2019-0 Yes [id number] 4mg Take 1 [facility] (ZOFRAN 2-13 tablet by ity of ODT) 4 mg 00:00: mouth [place] disintegrat 00 every 8 Medic al ing tablet (eight) Branch hours as needed for Nausea and Vomiting (N/V). omeprazole 2019-0 Yes [id number] 40mg Take 2 [facility] 20 mg 2-13 tablets by ity of tablet 00:00: mouth [place] 00 daily. [facility] Branch ondansetron 2019-0 Yes [id number] 4mg Take 1 [facility] (ZOFRAN 2-13 tablet by ity of ODT) 4 mg 00:00: mouth [place] disintegrat 00 every 8 Medic al ing tablet (eight) Branch hours as needed for Nausea and Vomiting (N/V). omeprazole 2019-0 Yes [id number] 40mg Take 2 [facility] 20 mg 2-13 tablets by ity of tablet 00:00: mouth [place] 00 daily. [facility] ondansetron 2019-0 Yes [id number] 4mg Take 1 [facility] (ZOFRAN 2-13 tablet by ity of ODT) 4 mg 00:00: mouth [place] disintegrat 00 every 8 Medic al ing tablet (eight) Branch hours as needed for Nausea and Vomiting (N/V). omeprazole 2019-0 Yes [id number] 40mg Take 2 [facility] 20 mg 2-13 tablets by ity of tablet 00:00: mouth [place] 00 daily. [facility] ondansetron 2019-0 Yes [id number] 4mg Take 1 [facility] (ZOFRAN 2-13 tablet by ity of ODT) 4 mg 00:00: mouth [place] disintegrat 00 every 8 Medic al ing tablet (eight) Branch hours as needed for Nausea and Vomiting (N/V). omeprazole 2019-0 Yes [id number] 40mg Take 2 [facility] 20 mg 2-13 tablets by ity of tablet 00:00: mouth [place] 00 daily. [facility] ondansetron 2019-0 Yes [id number] 4mg Take 1 [facility] (ZOFRAN 2-13 tablet by ity of ODT) 4 mg 00:00: mouth [place] disintegrat 00 every 8 Medic al ing tablet (eight) Branch hours as needed for Nausea and Vomiting (N/V). omeprazole 2019-0 Yes [id number] 40mg Take 2 [facility] 20 mg 2-13 tablets by ity of tablet 00:00: mouth [place] 00 daily. [facility] Branch ondansetron 2019-0 Yes [id number] 4mg Take 1 [facility] (ZOFRAN 2-13 tablet by ity of ODT) 4 mg 00:00: mouth [place] disintegrat 00 every 8 Medic al ing tablet (eight) Branch hours as needed for Nausea and Vomiting (N/V). omeprazole 2019-0 Yes [id number] 40mg Take 2 [facility] 20 mg 2-13 tablets by ity of tablet 00:00: mouth [place] 00 daily. [facility] Branch ondansetron 2019-0 Yes [id number] 4mg Take 1 [facility] (ZOFRAN 2-13 tablet by ity of ODT) 4 mg 00:00: mouth [place] disintegrat 00 every 8 Medic al ing tablet (eight) Branch hours as needed for Nausea and Vomiting (N/V). omeprazole 2019-0 Yes [id number] 40mg Take 2 [facility] 20 mg 2-13 tablets by ity of tablet 00:00: mouth [place] 00 daily. [facility] Branch ondansetron 2019-0 Yes [id number] 4mg Take 1 [facility] (ZOFRAN 2-13 tablet by ity of ODT) 4 mg 00:00: mouth [place] disintegrat 00 every 8 Medic al ing tablet (eight) Branch hours as needed for Nausea and Vomiting (N/V). omeprazole 2019-0 Yes [id number] 40mg Take 2 [facility] 20 mg 2-13 tablets by ity of tablet 00:00: mouth [place] 00 daily. [facility] Branch ondansetron 0 Yes [id number] 4mg Take 1 [facility] (ZOFRAN 2-13 tablet by ity of ODT) 4 mg 00:00: mouth [place] disintegrat 00 every 8 Medic al ing tablet (eight) Branch hours as needed for Nausea and Vomiting (N/V). omeprazole 2019-0 Yes [id number] 40mg Take 2 [facility] 20 mg 2-13 tablets by ity of tablet 00:00: mouth [place] 00 daily. [facility] Branch ondansetron Yes [id number] 4mg Take 1 [facility] (ZOFRAN 2-13 tablet by ity of ODT) 4 mg 00:00: mouth [place] disintegrat 00 every 8 Medic al ing tablet (eight) Branch hours as needed for Nausea and Vomiting (N/V). omeprazole 2018-0 Yes [id number] 40mg Take 2 [facility] 20 mg 2-13 tablets by ity of tablet 00:00: mouth [place] 00 daily. [facility] ondansetron Yes [id number] 4mg Take 1 [facility] (ZOFRAN 2-13 tablet by ity of ODT) 4 mg 00:00: mouth [place] disintegrat 00 every 8 Medic al ing tablet (eight) Branch hours as needed for Nausea and Vomiting (N/V). omeprazole 2018-0 Yes [id number] 40mg Take 2 [facility] 20 mg 2-13 tablets by ity of tablet 00:00: mouth [place] 00 daily. [facility] ondansetron 0 Yes [id number] 4mg Take 1 [facility] (ZOFRAN 2-13 tablet by ity of ODT) 4 mg 00:00: mouth [place] disintegrat 00 every 8 Medic al ing tablet (eight) Branch hours as needed for Nausea and Vomiting (N/V). Diclofenac Yes [id number] Take 2-4 [facility] Sodium 8-16 grams ity of (VOLTAREN) 00:00: three [place] 1 % gel 00 times a Medical day as Branch needed for pain levothyroxi 2017-0 Yes [id number] 100ug Take 1 [facility] ne 100 mcg 8-16 tablet by ity of tablet 00:00: mouth [place] 00 every Medical morning. Branch lisinopril Yes [id number] 10mg Take 1 U nivers 10 mg 8-16 tablet by ity of tablet 00:00: mouth [place] 00 daily. Medical Branch Diclofenac Yes [id number] Take 2-4 [facility] Sodium 8-16 grams ity of (VOLTAREN) 00:00: three [place] 1 % gel 00 times a Medical day as Branch needed for pain levothyroxi Yes [id number] 100ug Take 1 [facility] ne 100 mcg 8-16 tablet by ity of tablet 00:00: mouth [place] 00 every Medical morning. Branch lisinopril Yes [id number] 10mg Take 1 U nivers 10 mg 8-16 tablet by ity of tablet 00:00: mouth [place] 00 daily. Medical Branch Diclofenac Yes [id number] Take 2-4 [facility] Sodium 8-16 grams ity of (VOLTAREN) 00:00: three [place] 1 % gel 00 times a Medical day as Branch needed for pain levothyroxi Yes [id number] 100ug Take 1 [facility] ne 100 mcg 8-16 tablet by ity of tablet 00:00: mouth [place] 00 every Medical morning. Branch lisinopril Yes [id number] 10mg Take 1 U nivers 10 mg 8-16 tablet by ity of tablet 00:00: mouth [place] 00 daily. Medical Branch Diclofenac Yes [id number] Take 2-4 [facility] Sodium 8-16 grams ity of (VOLTAREN) 00:00: three [place] 1 % gel 00 times a Medical day as Branch needed for pain levothyroxi Yes [id number] 100ug Take 1 [facility] ne 100 mcg 8-16 tablet by ity of tablet 00:00: mouth [place] 00 every Medical morning. Branch lisinopril Yes [id number] 10mg Take 1 U nivers 10 mg 8-16 tablet by ity of tablet 00:00: mouth [place] 00 daily. [facility] Branch Diclofenac Yes [id number] Take 2-4 [facility] Sodium 8-16 grams ity of (VOLTAREN) 00:00: three [place] 1 % gel 00 times a Medical day as Branch needed for pain levothyroxi 2017- Yes [id number] 100ug Take 1 [facility] ne 100 mcg 8-16 tablet by ity of tablet 00:00: mouth [place] 00 every Medical morning. Branch lisinopril Yes [id number] 10mg Take 1 U nivers 10 mg 8-16 tablet by ity of tablet 00:00: mouth [place] 00 daily. [facility] Branch Diclofenac Yes [id number] Take 2-4 [facility] Sodium 8-16 grams ity of (VOLTAREN) 00:00: three [place] 1 % gel 00 times a Medical day as Branch needed for pain levothyroxi Yes [id number] 100ug Take 1 [facility] ne 100 mcg 8-16 tablet by ity of tablet 00:00: mouth [place] 00 every Medical morning. Branch lisinopril Yes [id number] 10mg Take 1 U nivers 10 mg 8-16 tablet by ity of tablet 00:00: mouth [place] 00 daily. Medical Branch Diclofenac Yes [id number] Take 2-4 [facility] Sodium 8-16 grams ity of (VOLTAREN) 00:00: three [place] 1 % gel 00 times a Medical day as Branch needed for pain levothyroxi Yes [id number] 100ug Take 1 [facility] ne 100 mcg 8-16 tablet by ity of tablet 00:00: mouth [place] 00 every Medical morning. Branch lisinopril Yes [id number] 10mg Take 1 U nivers 10 mg 8-16 tablet by ity of tablet 00:00: mouth [place] 00 daily. Medical Branch Diclofenac Yes [id number] Take 2-4 [facility] Sodium 8-16 grams ity of (VOLTAREN) 00:00: three [place] 1 % gel 00 times a Medical day as Branch needed for pain levothyroxi Yes [id number] 100ug Take 1 [facility] ne 100 mcg 8-16 tablet by ity of tablet 00:00: mouth [place] 00 every Medical morning. Branch lisinopril Yes [id number] 10mg Take 1 U nivers 10 mg 8-16 tablet by ity of tablet 00:00: mouth [place] 00 daily. Medical Branch Diclofenac Yes [id number] Take 2-4 [facility] Sodium 8-16 grams ity of (VOLTAREN) 00:00: three [place] 1 % gel 00 times a Medical day as Branch needed for pain levothyroxi 2017- Yes [id number] 100ug Take 1 [facility] ne 100 mcg 8-16 tablet by ity of tablet 00:00: mouth [place] 00 every Medical morning. Branch lisinopril Yes [id number] 10mg Take 1 U nivers 10 mg 8-16 tablet by ity of tablet 00:00: mouth [place] 00 daily. Medical Branch Diclofenac Yes [id number] Take 2-4 [facility] Sodium 8-16 grams ity of (VOLTAREN) 00:00: three [place] 1 % gel 00 times a Medical day as Branch needed for pain levothyroxi Yes [id number] 100ug Take 1 [facility] ne 100 mcg 8-16 tablet by ity of tablet 00:00: mouth [place] 00 every Medical morning. Branch lisinopril Yes [id number] 10mg Take 1 U nivers 10 mg 8-16 tablet by ity of tablet 00:00: mouth [place] 00 daily. Medical Branch Diclofenac Yes [id number] Take 2-4 [facility] Sodium 8-16 grams ity of (VOLTAREN) 00:00: three [place] 1 % gel 00 times a Medical day as Branch needed for pain levothyroxi Yes [id number] 100ug Take 1 [facility] ne 100 mcg 8-16 tablet by ity of tablet 00:00: mouth [place] 00 every Medical morning. Branch lisinopril Yes [id number] 10mg Take 1 U nivers 10 mg 8-16 tablet by ity of tablet 00:00: mouth [place] 00 daily. Medical Branch Diclofenac Yes [id number] Take 2-4 [facility] Sodium 8-16 grams ity of (VOLTAREN) 00:00: three [place] 1 % gel 00 times a Medical day as Branch needed for pain levothyroxi Yes [id number] 100ug Take 1 [facility] ne 100 mcg 8-16 tablet by ity of tablet 00:00: mouth [place] 00 every Medical morning. Branch lisinopril Yes [id number] 10mg Take 1 U nivers 10 mg 8-16 tablet by ity of tablet 00:00: mouth [place] 00 daily. Medical Branch Diclofenac Yes [id number] Take 2-4 [facility] Sodium 8-16 grams ity of (VOLTAREN) 00:00: three [place] 1 % gel 00 times a Medical day as Branch needed for pain levothyroxi 2017- Yes [id number] 100ug Take 1 [facility] ne 100 mcg 8-16 tablet by ity of tablet 00:00: mouth [place] 00 every Medical morning. Branch lisinopril Yes [id number] 10mg Take 1 U nivers 10 mg 8-16 tablet by ity of tablet 00:00: mouth [place] 00 daily. Medical Branch Diclofenac Yes [id number] Take 2-4 [facility] Sodium 8-16 grams ity of (VOLTAREN) 00:00: three [place] 1 % gel 00 times a Medical day as Branch needed for pain levothyroxi Yes [id number] 100ug Take 1 [facility] ne 100 mcg 8-16 tablet by ity of tablet 00:00: mouth [place] 00 every Medical morning. Branch lisinopril Yes [id number] 10mg Take 1 U nivers 10 mg 8-16 tablet by ity of tablet 00:00: mouth [place] daily. Medical Branch atorvastati Yes [id number] 20mg Take 1 [facility] n 20 mg 1-17 tablet by ity of tablet 00:00: mouth at [place] [address] bedtime. Medical Branch atorvastati Yes [id number] 20mg Take 1 [facility] n 20 mg 1-17 tablet by ity of tablet 00:00: mouth at [place] [address] bedtime. Medical Branch atorvastati Yes [id number] 20mg Take 1 [facility] n 20 mg 1-17 tablet by ity of tablet 00:00: mouth at [place] [address] bedtime. Medical Branch atorvastati Yes [id number] 20mg Take 1 [facility] n 20 mg 1-17 tablet by ity of tablet 00:00: mouth at [place] [address] bedtime. Medical Branch atorvastati Yes [id number] 20mg Take 1 [facility] n 20 mg 1-17 tablet by ity of tablet 00:00: mouth at [place] [address] bedtime. Medical Branch atorvastati Yes [id number] 20mg Take 1 [facility] n 20 mg 1-17 tablet by ity of tablet 00:00: mouth at [place] [address] bedtime. Medical Branch atorvastati 0 Yes [id number] 20mg Take 1 [facility] n 20 mg 1-17 tablet by ity of tablet 00:00: mouth at [place] [address] bedtime. Medical Branch atorvastati Yes [id number] 20mg Take 1 [facility] n 20 mg 1-17 tablet by ity of tablet 00:00: mouth at [place] [address] bedtime. Medical Branch atorvastati Yes [id number] 20mg Take 1 [facility] n 20 mg 1-17 tablet by ity of tablet 00:00: mouth at [place] [address] bedtime. Medical Branch atorvastati Yes [id number] 20mg Take 1 [facility] n 20 mg 1-17 tablet by ity of tablet 00:00: mouth at [place] [address] bedtime. Medical Branch atorvastati Yes [id number] 20mg Take 1 [facility] n 20 mg 1-17 tablet by ity of tablet 00:00: mouth at [place] [address] bedtime. Medical Branch atorvastati Yes [id number] 20mg Take 1 [facility] n 20 mg 1-17 tablet by ity of tablet 00:00: mouth at [place] [address] bedtime. Medical Branch atorvasta Yes [id number] 20mg Take 1 [facility] n 20 mg 1-17 tablet by ity of tablet 00:00: mouth at [place] [address] bedtime. Medical Branch atorvasta Yes [id number] 20mg Take 1 [facility] n 20 mg 1-17 tablet by ity of tablet 00:00: mouth at [place] [address] bedtime. Medical Branch Lipitor Lipitor Yes Mike 1 tablet Com mon [facility] Lisinopril Lisinopril Yes Mike 1 tablet Common [facility] Prilosec Prilosec Yes Mike 1 tablet C ommon OTC OTC [facility] Levothyroxi Levothyroxi Yes Mike 1 tablet Common ne Sodium ne Sodium Zamudio on an Spi rit empty - CHI stomach in [facility] metFORMIN metFORMIN No BID metFORMIN HCl [...] [facility] - OVER 65 OVER 65 13:44:00 [facility] FLUZONE HIGH DOSE FLUZONE HIGH DOSE 2022-06-24 Completed [facility] - OVER 65 OVER 65 13:44:00 [facility] FLUZONE HIGH DOSE FLUZONE HIGH DOSE 2022-06-24 Completed [facility] - OVER 65 OVER 65 13:44:00 [facility] FLUZONE HIGH DOSE FLUZONE HIGH DOSE 2022-06-24 Completed [facility] - OVER 65 OVER 65 13:44:00 [facility] FLUZONE HIGH DOSE FLUZONE HIGH DOSE 2022-06-24 Completed [facility] - OVER 65 OVER 65 13:44:00 [facility] Td 2021-04-21 Completed University of 00:00:00 [facility] Branch Td 2021-04-21 Completed [facility] of 00:00:00 [facility] Branch Td 2021-04-21 Completed University of 00:00:00 [facility] Branch Td 2021-04-21 Completed [facility] of 00:00:00 [facility] Branch Td 2021-04-21 Completed [facility] of 00:00:00 [facility] Branch Td 2021-04-21 Completed [facility] of 00:00:00 [facility] Branch Td 2021-04-21 Completed [facility] of 00:00:00 [facility] Branch Td 2021-04-21 Completed [facility] of 00:00:00 [facility] Branch Td 2021-04-21 Completed [facility] of 00:00:00 [facility] Branch Td 2021-04-21 Completed [facility] of 00:00:00 [facility] [place] [facility] Td 2021-04-21 Completed University of 00:00:00 [facility] [place] [facility] Td 2021-04-21 Completed University of 00:00:00 [facility] [place] [facility] Td 2021-04-21 Completed University of 00:00:00 [facility] [place] [facility] TD, NOS 2021-04-21 Completed [facility] of 00:00:00 [facility] [place] [facility] Vital Signs Vital Name Observation Time Observation Value Comments Source Systolic blood 2022-10-20 19:52:00 137 mm[Hg] [facility] Medicine Diastolic blood 2022-10-20 19:52:00 80 mm[Hg] [facility] Medicine Heart rate 2022-10-20 19:52:00 72 /min [facility] Body height 2022-10-20 19:52:00 165.1 cm [facility] Body weight 2022-10-20 19:52:00 89.812 kg [facility] BMI 2022-10-20 19:52:00 32.95 kg/m2 [facility] Systolic blood 2022-09-27 17:58:00 131 mm[Hg] [facility] Medicine Diastolic blood 2022-09-27 17:58:00 78 mm[Hg] [facility] Medicine Heart rate 2022-09-27 17:58:00 78 /min [facility] HEIGHT 2022-09-09 10:00:00 165.1 cm WEIGHT 2022-09-09 10:00:00 87.454 kg HEIGHT 2022-09-09 10:00:00 165.1 cm WEIGHT 2022-09-09 10:00:00 87.454 kg HEIGHT 2022-09-09 10:00:00 165.1 cm WEIGHT 2022-09-09 10:00:00 87.454 kg Systolic blood 2022-07-28 20:41:00 121 mm[Hg] [facility] Medicine Diastolic blood 2022-07-28 20:41:00 65 mm[Hg] [facility] Medicine Heart rate 2022-07-28 20:41:00 62 /min [facility] Body temperature 2022-07-28 20:41:00 37 [facility] Body height 2022-07-28 20:41:00 165.1 cm [facility] Body weight 2022-07-28 20:41:00 90.266 kg [facility] BMI 2022-07-28 20:41:00 33.12 kg/m2 [facility] height 2022-06-24 08:00:00 65 [in_i] [facility] weight 2022-06-24 08:00:00 199.8 [lb_av] [facility] temperature 2022-06-24 08:00:00 97.3 [degF] [facility] bmi 2022-06-24 08:00:00 33.24 kg/m2 [facility] oximetry 2022-06-24 08:00:00 99 % [facility] respiratory rate 2022-06-24 08:00:00 18 /min [facility] blood pressure 2022-06-24 08:00:00 145 mm[Hg] [facility] - systolic [facility] blood pressure 2022-06-24 08:00:00 72 mm[Hg] [facility] - diastolic [facility] height 2022-06-04 11:30:00 65 [in_i] [facility] - [facility] weight 2022-06-04 11:30:00 200.6 [lb_av] Common [facility] temperature 2022-06-04 11:30:00 97.6 [degF] Common [facility] bmi 2022-06-04 11:30:00 33.38 kg/m2 [facility] 2022-06-04 11:30:00 99 % [facility] respiratory rate 2022-06-04 11:30:00 18 /min Comm on [facility] blood pressure 2022-06-04 11:30:00 184 mm[Hg] Common [facility] - systolic [facility] blood pressure 2022-06-04 11:30:00 77 mm[Hg] Common [facility] - diastolic [facility] height 2022-03-23 16:30:00 65 [in_i] Common S [facility] weight 2022-03-23 16:30:00 198.6 [lb_av] Common [facility] temperature 2022-03-23 16:30:00 98.0 [degF] Common S [facility] bmi 2022-03-23 16:30:00 33.05 kg/m2 Common S [facility] oximetry 2022-03-23 16:30:00 94 % Common S [facility] respiratory rate 2022-03-23 16:30:00 16 /min Comm on [facility] blood pressure 2022-03-23 16:30:00 125 mm[Hg] [facility] - systolic [facility] blood pressure 2022-03-23 16:30:00 59 mm[Hg] [facility] - diastolic [facility] height 2022-03-08 09:40:00 65 [in_i] [facility] 2022-03-08 09:40:00 199.4 [lb_av] Common [facility] bmi 2022-03-08 09:40:00 33.18 kg/m2 Common [facility] Systolic blood 2021-11-03 18:21:00 112 mm[Hg] Univer sity of pressure [facility] [place] [facility] Diastolic blood 2021-11-03 18:21:00 65 mm[Hg] Unive rsity of [facility] Heart rate 2021-11-03 18:21:00 62 [facility] 2021-11-03 18:21[facility]00 [facility] 2021-11-03 18:21:00 [facility] 2021-11-03 18:21:00 34.67 kg/m2 [facility] Oxygen saturation in 2021-11-03 18:21:00 98 /min [facility] Arterial blood by [facility] Pulse oximetry Branch height 2021-10-26 16:10:00 65 [in_i] [facility] weight 2021-10-26 16:10:00 199.4 [lb_av] [facility] temperature 2021-10-26 16:10:00 97.2 [degF] Common [facility] bmi 2021-10-26 16:10:00 33.18 kg/m2 [facility] oximetry 2021-10-26 16:10:00 98 % [facility] respiratory rate 2021-10-26 16:10:00 17 /min Comm on [facility] blood pressure 2021-10-26 16:10:00 138 mm[Hg] Common [facility] - systolic [facility] blood pressure 2021-10-26 16:10:00 75 mm[Hg] Common [facility] - diastolic [facility] height 2021-09-28 16:20:00 65 [in_i] Common [facility] weight 2021-09-28 16:20:00 204.6 [lb_av] [facility] temperature 2021-09-28 16:20:00 97.7 [degF] [facility] - [facility] bmi 2021-09-28 16:20:00 34.04 kg/m2 [facility] oximetry 2021-09-28 16:20:00 97 % [facility] respiratory rate 2021-09-28 16:20:00 17 /min Comm on [facility] blood pressure 2021-09-28 16:20:00 142 mm[Hg] Common [facility] - systolic [facility] blood pressure 2021-09-28 16:20:00 78 mm[Hg] Common [facility] - diastolic [facility] height 2021-09-15 15:30:00 65 [in_i] Common [facility] weight 2021-09-15 15:30:00 201.1 [lb_av] [facility] temperature 2021-09-15 15:30:00 97.5 [degF] Common [facility] bmi 2021-09-15 15:30:00 33.46 kg/m2 [facility] 2021-09-15 15:30:00 97 % Common S [facility] respiratory rate 2021-09-15 15:30:00 17 /min Comm on [facility] blood pressure 2021-09-15 15:30:00 137 mm[Hg] Common [facility] - systolic [facility] blood pressure 2021-09-15 15:30:00 76 mm[Hg] Common [facility] - diastolic [facility] height 2021-09-15 16:00:00 65 [in_i] Common [facility] weight 2021-09-15 16:00:00 201.1 [lb_av] [facility] temperature 2021-09-15 16:00:00 97.5 [degF] Common S pirit [facility] 2021-09-15 16:00:00 33.46 kg/m2 Common [facility] oximetry 2021-09-15 16:00:00 97 % [facility] respiratory rate 2021-09-15 16:00:00 17 /min Comm on [facility] blood pressure 2021-09-15 16:00:00 137 mm[Hg] [facility] - systolic [facility] blood pressure 2021-09-15 16:00:00 76 mm[Hg] Common [facility] - diastolic [facility] height 2021-07-21 10:10:00 65 [in_i] [facility] weight 2021-07-21 10:10:00 200.0 [lb_av] [facility] temperature 2021-07-21 10:10:00 97.4 [degF] [facility] bmi 2021-07-21 10:10:00 33.28 kg/m2 [facility] oximetry 2021-07-21 10:10:00 97 % [facility] respiratory rate 2021-07-21 10:10:00 17 /min Comm on [facility] blood pressure 2021-07-21 10:10:00 149 mm[Hg] [facility] systolic [facility] blood pressure 2021-07-21 10:10:00 87 mm[Hg] [facility] diastolic [facility] Heart rate 2022-09-11 11:06:33 61 /min [facility] Body temperature 2022-09-11 11:06:33 36.61 [facility] Oxygen saturation in 2022-09-11 11:06:33 100 /min [facility] Arterial blood by Medical Ce nter Pulse oximetry Systolic blood 2022-09-11 11:05:00 117 mm[Hg] [facility] Diastolic blood 2022-09-11 11:05:00 49 mm[Hg] [facility] Respiratory rate 2022-09-11 03:36:14 18 /min [facility] Body height 2022-09-09 10:00:[address] [facility] Body weight 2022-09-09 10:00:[address] [facility] BMI 2022-09-09 10:00:00 32.08 kg/m2 [facility] Procedures Procedure Date / Time Performing Clinician Source Performed BASIC METABOLIC PANEL 2022-09-27 12:11:11 [facility] CBC W/AUTO DIFF WITH 2022-09-27 12:11:11 [facility] BASIC METABOLIC PANEL 2022-09-11 05:21:00 Christopher Chaudhary [facility] CBC W/PLT COUNT & AUTO 2022-09-11 05:[facility] 2022-09-11 05:21:00 [facility] CBC W/PLT COUNT & AUTO 2022-09-10 21:53:00 [facility] CBC W/PLT COUNT & AUTO 2022-09-10 21:53:00 [facility] POCT-GLUCOSE METER 2022-09-10 16:05:00 [facility] [facility] POCT-GLUCOSE METER 2022-09-10 11:51:00 [facility] POCT-GLUCOSE METER 2022-09-10 08:12:00 [facility] BASIC METABOLIC PANEL 2022-09-10 05:07:00 Chritsopher Chaudhary [facility] HEMOGLOBIN AND 2022-09-10 05:07:00 Christopher Chaudhary [facility] POCT-GLUCOSE METER 2022-09-09 19:22:00 [facility] HEMOGLOBIN AND 2022-09-09 18:47:00 Christopher Chaudhary [facility] BASIC METABOLIC PANEL 2022-09-09 18:47:00 Christopher Chaudhary [facility] TISSUE EXAM 2022-09-09 17:13:00 [facility] TISSUE EXAM 2022-09-09 17:13:00 [facility] ROBOTIC 2022-09-09 13:28:00 Duran [facility] LAPAROSCOPY,NEPHRECTOMY Center -PARTIAL PROCEDURE W/ DAVINCI XI 2022-09-09 13:28:00 [facility] PREPARE RBC 2022-09-09 12:24:00 [facility] ROBOTIC 2022-09-09 12:00:00 Duran Wylie [facility] LAPAROSCOPY,NEPHRECTOMY Center -PARTIAL PROCEDURE W/ DAVINCI XI 2022-09-09 12:00:00 [facility] ECG 12-LEAD 2022-09-09 11:31:37 Unknown, Hl7 [facility] ECG 12-LEAD 2022-09-09 11:31:37 Stan Garrido [facility] ECG 12-LEAD 2022-09-09 11:31:37 Unknown, Hl7 [facility] ABORH, MANUAL 2022-09-09 11:27:00 Karina Barajas [facility] POCT-GLUCOSE METER 2022-09-09 11:20:00 [facility] TYPE AND SCREEN, 2022-09-09 11:09:00 Cha Dacosta [facility] Center XR CHEST 2 VW 2022-08-17 14:11:39 Requisition, Paper [facility] ASSIGNMENT OF BENEFITS 2022-06-16 21:17:35 Doctor Unassigned, No [facility] Name Medical Branch HB CREATININE 2022-05-15 14:20:00 Radiology [place] Train o [facility] SERUM/BLOOD FOR IMAGING Medical Branch DEXA AXIAL (HIP AND 2021-11-18 21:13:26 Requisition, Paper [facility] SPINE) Medical Branch CONSENT/REFUSAL FOR 2021-11-18 20:29:45 Doctor Unassigned, No Un [facility] DIAGNOSIS AND TREATMENT Name Medical Branch ASSIGNMENT OF BENEFITS 2021-11-18 20:29:31 Doctor Unassigned, No [facility] Name Medical Branch REFERRAL- 2021-10-27 05:01:00 Doctor Unassigned, No [facility] REQUEST/RESPONSE Name Medical Branch Plan of Care Planned Activity Planned Date Details Comments Source Future Scheduled 2023-04-[address] [facility] Test 00:00:00 (Season Ended) [code Medical Center = INFLUENZA VACCINE (Season Ended)] Future Scheduled 2023-03-27 CT ABDOMEN PELVIS W Expected: [employer] Test 00:00:00 WO CONTRAST [code = 03/27/2023, of Medic ine 30393-7] Expires: 09/27/2023 Future Scheduled 2023-03-27 XR CHEST PA AND Expected: [facility] [employer] 00:00:00 LATERAL [code = 03/27/2023, of Medicine 86641-2] Expires: 09/27/2023 Future Scheduled 2022-10-20 Screening for [employer] [employer] Test 15:32:57 malignant neoplasm of Medici ne of colon (procedure) [code = 766724826] Future Scheduled 2022-10-20 BMI Follow Up Plan [employer] Test 15:32:57 [code = BMI Follow of Medici ne Up Plan] Future Scheduled 2022-10-20 Hepatitis C [facility] [employer] Test 15:32:57 screening of Medicine (procedure) [code = 210532656] Future Scheduled 2022-10-20 ZOSTER VACCINE (1 of [place] [employer] Test 15:32:57 2) [code = ZOSTER of Medicin e VACCINE (1 of 2)] Future Scheduled 2022-10-20 Screening for [employer] Test 15:32:57 osteoporosis of Medicine (procedure) [code = 124716262] Future Scheduled 2022-10-20 Pneumococcal 65+ (1 [employer] Test 15:32:57 - PCV) [code = of Medicine Pneumococcal 65+ (1 - PCV)] Future Scheduled 2022-10-20 Screening for [facility] Test 15:32:57 malignant neoplasm of Medici ne of breast (procedure) [code = 721831984] Future Scheduled 2022-10-20 COVID-19 Vaccine (2 [employer] Test 15:32:57 - Pfizer series) of Medicine [code = COVID-19 Vaccine (2 - Pfizer series)] Future Scheduled 2022-10-20 FLU VACCINE > 6 [facility] Test 15:32:57 MONTHS [code = FLU of Medici ne VACCINE > 6 MONTHS] Future Scheduled 2022-10-20 Fall Screen [code = [employer] Test 15:32:57 Fall Screen] of Medicine Future Scheduled 2022-10-20 TETANUS SHOT (ADULT) [employer] Test 15:32:57 [code = TETANUS SHOT of Medi cine (ADULT)] Future Scheduled 2022-09-27 Screening for [facility] Test 12:11:19 malignant neoplasm of Medici ne of colon (procedure) [code = 704522319] Future Scheduled 2022-09-27 BMI Follow Up Plan [employer] Test 12:11:19 [code = BMI Follow of Medici ne Up Plan] Future Scheduled 2022-09-27 Hepatitis C [facility] [employer] Test 12:11:19 screening of Medicine (procedure) [code = 732737260] Future Scheduled 2022-09-27 ZOSTER VACCINE (1 of [employer] Test 12:11:19 2) [code = ZOSTER of Medicin e VACCINE (1 of 2)] Future Scheduled 2022-09-27 Screening for [facility] Test 12:11:19 osteoporosis of Medicine (procedure) [code = 806707131] Future Scheduled 2022-09-27 Pneumococcal 65+ (1 [employer] Test 12:11:19 - PCV) [code = of Medicine Pneumococcal 65+ (1 - PCV)] Future Scheduled 2022-09-27 Screening for [facility] Test 12:11:19 malignant neoplasm of Medici ne of breast (procedure) [code = 828517357] Future Scheduled 2022-09-27 COVID-19 Vaccine (2 [employer] Test 12:11:19 - Pfizer series) of Medicine [code = COVID-19 Vaccine (2 - Pfizer series)] Future Scheduled 2022-09-27 FLU VACCINE > 6 [facility] Test 12:11:19 MONTHS [code = FLU of Medici ne VACCINE > 6 MONTHS] Future Scheduled 2022-09-27 Medicare Awv [facility] [employer] Test 12:11:19 (Initial) [code = of Medicin e Medicare Awv (Initial)] Future Scheduled 2022-09-27 Fall Screen [code = [employer] Test 12:11:19 Fall Screen] of Medicine Future Scheduled 2022-09-27 TETANUS SHOT (ADULT) [employer] Test 12:11:19 [code = TETANUS SHOT of Medi cine (ADULT)] Future Scheduled 2022-09-27 BASIC METABOLIC Ordered: [employer] [employer] [facility] 12:11:11 PANEL [code = 09/27/2022 of Medicine 98357-3] Future Scheduled 2022-09-27 CBC W/AUTO DIFF WITH Ordered: [facility] Test 12:11:11 PLATELETS [code = 09/27/2022 of Medicin e 14476-3] Future Scheduled 2022-08-[address] [facility] Test 00:00:00 (12+) [code = Medical Center DEPRESSION SCREENING (12+)] Future Scheduled 2022-08-15 FALLS RISK SCREENING [facility] Test 00:00:00 [code = FALLS RISK Medical C enter SCREENING] Future Scheduled 2022-08-[address] [facility] 00:[facility]:00 (WELCOME TO [facility] MEDICARE) [code = Medicare IPPE (WELCOME TO MEDICARE)] Future Scheduled 2022-08-[address] [facility] Test 00:00:00 (12+) [code = Medical Center DEPRESSION SCREENING (12+)] Future Scheduled 2022-08-15 FALLS RISK SCREENING [facility] Test 00:00:00 [code = FALLS RISK Medical C enter SCREENING] Future Scheduled 2022-08-[address] [facility] Test 00:00:00 (WELCOME TO Medical Center MEDICARE) [code = Medicare IPPE (WELCOME TO MEDICARE)] Future Scheduled 2022-08-[address] [facility] Test 00:00:00 (12+) [code = Medical Center DEPRESSION SCREENING (12+)] Future Scheduled 2022-08-15 FALLS RISK SCREENING [facility] Test 00:00:00 [code = FALLS RISK Medical C enter SCREENING] Future Scheduled 2022-08-[address] [facility] Test 00:00:00 (WELCOME TO [facility] MEDICARE) [code = Medicare IPPE (WELCOME TO MEDICARE)] Future Scheduled 2022-08-[address] [facility] Test 00:00:00 (12+) [code = Medical Center DEPRESSION SCREENING (12+)] Future Scheduled 2022-08-15 FALLS RISK SCREENING [facility] Test 00:00:00 [code = FALLS RISK Medical C enter SCREENING] Future Scheduled 2022-08-[address] [facility] Test 00:00:00 ([facility] MEDICARE) [code = Medicare IPPE (WELCOME TO MEDICARE)] Future Scheduled 2022-08-04 Screening for [facility] Test 12:48:05 malignant neoplasm of Medici ne of colon (procedure) [code = 846636473] Future Scheduled 2022-08-04 BMI FOLLOW UP PLAN [employer] Test 12:48:05 [code = BMI FOLLOW of Medici ne UP PLAN] Future Scheduled 2022-08-04 Hepatitis C [facility] [employer] [facility] 12:48:05 screening of Medicine (procedure) [code = 346440533] Future Scheduled 2022-08-04 ZOSTER VACCINE (1 of [employer] [employer] Test 12:48:05 2) [code = ZOSTER of Medicin e VACCINE (1 of 2)] Future Scheduled 2022-08-04 FALL SCREEN [code = [employer] Test 12:48:05 FALL SCREEN] of Medicine Future Scheduled 2022-08-04 Screening for [facility] Test 12:48:05 osteoporosis of Medicine (procedure) [code = 435261243] Future Scheduled 2022-08-04 Pneumococcal 65+ (1 [employer] Test 12:48:05 - PCV) [code = of Medicine Pneumococcal 65+ (1 - PCV)] Future Scheduled 2022-08-04 Screening for [facility] Test 12:48:05 malignant neoplasm of Medici ne of breast (procedure) [code = 214881921] Future Scheduled 2022-08-04 COVID-19 Vaccine (2 [employer] Test 12:48:05 - Pfizer series) of Medicine [code = COVID-19 Vaccine (2 - Pfizer series)] Future Scheduled 2022-08-04 FLU VACCINE > 6 [facility] [employer] Test 12:48:05 MONTHS [code = FLU of Medici ne VACCINE > 6 MONTHS] Future Scheduled 2022-08-04 TETANUS SHOT (ADULT) [employer] Test 12:48:05 [code = TETANUS SHOT of Medi cine (ADULT)] Future Scheduled 2022-07-28 MRI ABDOMEN W WO 1 Occurrences [facility] Test 15:27:30 CONTRAST [code = starting of Medicine 59923-1] 07/28/2022 until 07/28/2023 Future Scheduled 2022-07-28 XR CHEST PA AND 1 Occurrences [facility] Test 15:27:30 LATERAL [code = [facility] 22271-5] 07/28/2022 until 07/28/2023 Future Scheduled 2022-04-[address] [facility] Test 00:00:00 (#1) [code = Medical Center INFLUENZA VACCINE (#1)] Future Scheduled 2022-04-[address] [facility] Test 00:00:00 (#1) [code = Medical Center INFLUENZA VACCINE (#1)] Future Scheduled 2022-04-[address] [facility] Test 00:00:00 (#1) [code = Medical Center INFLUENZA VACCINE (#1)] Future Scheduled 2021-08-03 DTAP/TDAP/TD [facility] 00:[facility]:00 VACCINES (2 - Td or Medical Center Tdap) [code = DTAP/TDAP/TD VACCINES (2 - Td or Tdap)] Future Scheduled 2021-08-03 DTAP/TDAP/TD [facility] 00:00:00 VACCINES (2 - Td or Medical Center Tdap) [code = DTAP/TDAP/TD VACCINES (2 - Td or Tdap)] Future Scheduled 2021-08-03 DTAP/TDAP/TD [facility] Test 00:00:00 VACCINES (2 - Td or Medical Center Tdap) [code = DTAP/TDAP/TD VACCINES (2 - Td or Tdap)] Future Scheduled 2021-08-03 DTAP/TDAP/TD [facility] Test 00:00:00 VACCINES (2 - Td or Medical Center Tdap) [code = DTAP/TDAP/TD VACCINES (2 - Td or Tdap)] Future Scheduled 2016 PNEUMOCOCCAL 65+ YRS [facility] Test 00:00:00 (1 - PCV) [code = Medical Ce nter PNEUMOCOCCAL 65+ YRS (1 - PCV)] Future Scheduled 2016 PNEUMOCOCCAL 65+ YRS [facility] Test 00:00:00 (1 - PCV) [code = Medical Ce nter PNEUMOCOCCAL 65+ YRS (1 - PCV)] Future Scheduled 2016 PNEUMOCOCCAL 65+ YRS [facility] Test 00:00:00 (1 - PCV) [code = Medical Ce nter PNEUMOCOCCAL 65+ YRS (1 - PCV)] Future Scheduled 2016 PNEUMOCOCCAL 65+ YRS [facility] Test 00:00:00 (1 - PCV) [code = Medical Ce nter PNEUMOCOCCAL 65+ YRS (1 - PCV)] Future Scheduled 2001 SHINGLES VACCINES ([address] [facility] Test 00:00:00 of 2) [code = Medical Center SHINGLES VACCINES (1 of 2)] Future Scheduled 2001 SHINGLES VACCINES ([address] [facility] Test 00:00:00 of 2) [code = Medical Center SHINGLES VACCINES (1 of 2)] Future Scheduled 2001 SHINGLES VACCINES ([address] [facility] Test 00:00:00 of 2) [code = Medical Center SHINGLES VACCINES (1 of 2)] Future Scheduled 2001 SHINGLES VACCINES ([address] [facility] Test 00:00:00 of 2) [code = Medical Center SHINGLES VACCINES (1 of 2)] Future Scheduled [address] [facility] Test 00:00:00 SCREENING [code = Medical Ce nter HEPATITIS C SCREENING] Future Scheduled [address] [facility] Test 00:00:00 SCREENING [code = Medical Ce nter HEPATITIS C SCREENING] Future Scheduled [address] [facility] Test 00:00:00 SCREENING [code = Medical Ce nter HEPATITIS C SCREENING] Future Scheduled [address] [facility] Test 00:00:00 SCREENING [code = Medical Ce nter HEPATITIS C SCREENING] Future Scheduled [address] [facility] Test 00:00:00 Counseling and Medical Cente r Screening (12+) [code = Tobacco Cessation Counseling and Screening (12+)] Future Scheduled [address] [facility] Test 00:00:00 Counseling and Medical Cente r Screening (12+) [code = Tobacco Cessation Counseling and Screening (12+)] Future Scheduled [address] [facility] Test 00:00:00 Counseling and Medical Cente r Screening (12+) [code = Tobacco Cessation Counseling and Screening (12+)] Future Scheduled [address] [facility] Test 00:00:00 Counseling and Medical Cente r Screening (12+) [code = Tobacco Cessation Counseling and Screening (12+)] Future Scheduled 1951 COVID-[address] [facility] Test 00:00:00 (#1) [code = [facility] COVID-19 VACCINE (#1)] Future Scheduled 1951 COVID-[address] [facility] Test 00:00:00 (#1) [code = [facility] COVID-19 VACCINE (#1)] Future Scheduled 1951 COVID-[address] [facility] Test 00:00:00 (#1) [code = [facility] COVID-19 VACCINE (#1)] Future Scheduled 1951 COVID-[address] [facility] Test 00:00:00 (#1) [code = [facility] COVID-19 VACCINE (#1)] Future Scheduled [address] [facility] Test 00:00:00 malignant neoplasm Medical C enter of breast (procedure) [code = 138587322] Future Scheduled [address] [facility] Test 00:00:00 (combo) [code = CT Medical C enter Colonography (combo)] Future Scheduled [address] [facility] Test 00:00:00 malignant neoplasm Medical C enter of colon (procedure) [code = 521974905] Future Scheduled [address] [facility] Test 00:00:00 malignant neoplasm Medical C enter of colon (procedure) [code = 580954327] Future Scheduled 1951 DXA SCAN [code = DXA [facility] Test 00:00:00 SCAN] [facility] Future Scheduled [address] [facility] Test 00:00:00 malignant neoplasm Medical C enter of colon (procedure) [code = 112373443] Future Scheduled [address] [facility] Test 00:00:00 malignant neoplasm Medical C enter of colon (procedure) [code = 722290139] Future Scheduled 1951 Sigmoidoscopy [code [facility] Test 00:00:00 = Sigmoidoscopy] [facility] Future Scheduled [address] [facility] Test 00:00:00 malignant neoplasm Medical C enter of colon (procedure) [code = 123862073] Future Scheduled [address] [facility] Test 00:00:00 malignant neoplasm Medical C enter of colon (procedure) [code = 874443692] Future Scheduled [address] [facility] Test 00:00:00 malignant neoplasm Medical C enter of breast (procedure) [code = 181784960] Future Scheduled 1951 Sigmoidoscopy [code [facility] Test 00:00:00 = Sigmoidoscopy] Medical [facility] Future Scheduled [address] [facility] 00:00:00 (combo) [code = CT Medical C enter Colonography (combo)] Future Scheduled [address] [facility] Test 00:00:00 malignant neoplasm Medical C enter of colon (procedure) [code = 066273948] Future Scheduled [address] [facility] Test 00:00:00 malignant neoplasm Medical C enter of colon (procedure) [code = 182863926] Future Scheduled 1951 DXA SCAN [code = DXA [facility] Test 00:00:00 SCAN] [facility] Future Scheduled [address] [facility] Test 00:00:00 malignant neoplasm Medical C enter of colon (procedure) [code = 713983589] Future Scheduled [address] [facility] Test 00:00:00 malignant neoplasm Medical C enter of colon (procedure) [code = 750083852] Future Scheduled 1951 Sigmoidoscopy [code [facility] Test 00:00:00 = Sigmoidoscopy] [facility] Future Scheduled [address] [facility] Test 00:00:00 malignant neoplasm Medical C enter of breast (procedure) [code = 619514407] Future Scheduled [address] [facility] 00:00:00 (combo) [code = CT Medical C enter Colonography (combo)] Future Scheduled [address] [facility] Test 00:00:00 malignant neoplasm Medical C enter of colon (procedure) [code = 851355215] Future Scheduled [address] [facility] Test 00:00:00 malignant neoplasm Medical C enter of colon (procedure) [code = 309944760] Future Scheduled [address] [facility] Test 00:00:00 malignant neoplasm Medical C enter of breast (procedure) [code = 089581125] Future Scheduled [address] [facility] 00:00:00 (combo) [code = CT Medical C enter Colonography (combo)] Future Scheduled [address] [facility] Test 00:00:00 malignant neoplasm Medical C enter of colon (procedure) [code = 982951129] Future Scheduled [address] [facility] Test 00:00:00 malignant neoplasm Medical C enter of colon (procedure) [code = 462966404] Future Scheduled 1951 DXA SCAN [code = DXA [facility] Test 00:00:00 SCAN] Medical Center Future Scheduled [address] [facility] Test 00:00:00 malignant neoplasm Medical C enter of colon (procedure) [code = 799872921] Future Scheduled [address] [facility] Test 00:00:00 malignant neoplasm Medical C enter of colon (procedure) [code = 458923874] Future Scheduled 1951 Sigmoidoscopy [code [facility] Test 00:00:00 = Sigmoidoscopy] Medical [facility] Future Scheduled 1951 DXA SCAN [code = DXA [facility] Test 00:00:00 SCAN] Medical Center Encounters Start End Encounter Admission Attending Care Care Encounter Source Date/Time Date/Time Type Type Clinicians Facility Department ID 2022-06-22 [facility] [id number] Common 14:44:00 Mike [id number] [facility] 2021-10-26 Out[facility] [id number] Common 16:11:00 Mike [facility] 2021-09-14 Out[facility], [facility] [id number] Common 11:09:01 Mike [facility] 2021-09-09 Outpatient Zamudio, [facility] [id number] Common 14:05:44 Mike [id number] [facility] 2021-09-09 Outpatient [facility]ud[facility], [facility] [id number] Common 12:38:12 Mike [id number] [facility] 2021-09-09 Outpatient [facility]ud[facility], [facility] [id number] Common 12:37:33 Mike [id number] [facility] 2021-09-09 [facility], [facility] [id number] Common 12:36:58 Mike [id number] [facility] 2021-09-09 Out[facility]ud[facility], [facility] [id number] Common 12:35:28 Mike [id number] [facility] 2021-09-09 Outpatient [facility]ud[facility], [facility] [id number] Common 12:28:00 Mike [id number] [facility] 2021-09-09 Outpatient Zamudio, [facility] [id number] Common 12:20:04 Mike [id number] [facility] 2021-09-09 Outpatient Zamudio, [facility] [id number] Common 11:44:09 Mike [id number] [facility] 2021-09-09 Outpatient Zamudio, [facility] Common 11:42:44 Mike [id number] [facility] 2021-09-09 Outpatient Zamudio, [facility] [id number] Common 11:42:38 Mike [id number] [facility] 2021-09-09 Outpatient Zamudio, [facility] [id number] Common 11:31:37 Mike 13854 [facility] 2021-09-09 Outpatient Zamudio, [facility] [id number] Common 11:26:53 Mike [id number] [facility] 2021-09-09 Outpatient [facility]ud[facility], [facility] [id number] Common 11:18:02 Mike [id number] [facility] 2021-06-15 Emergency [facility] [id number] Univers 20:59:37 [facility] 2022-10-20 2022-10-20 Office Link, [place] [id number] [facility] 15:00:00 15:15:00 Visit Duran Quinteros AMBULATOR [id number] College Y 0.2.7.2.686 of [id number] Medi kenya 300 e 2022-09-27 2022-09-27 Office LINK, [place] [id number] [facility] 11:51:51 12:24:50 Visit DURAN AMBULATOR 350.1.13.21 College Y 0.2.7.2.686 of [id number] Medi kenya 300 e 2022-09-09 2022-09-11 [facility] [id number] 09:48:00 14:49:00 Encounter [facility] 2022-09-09 2022-09-11 [facility] [id number] 09:48:00 14:49:00 Encounter [facility] 2022-09-09 2022-09-11 Outpatient [facility] Surgery [id number] [facility] 09:48:00 14:49:00 [facility] 2022-09-09 2022-09-09 Anesthesia Sheila Rudd [facility] [id number] 13:29:00 18:12:00 Event Radhika aldair [facility] 2022-09-09 2022-09-09 Anesthesia [facility] [id number] 13:29:00 18:12:00 Event Radhika aldair [facility] 2022-09-09 2022-09-09 [facility] [id number] 12:00:00 15:30:00 [facility] 2022-09-09 2022-09-09 [facility] [id number] 12:00:00 15:30:00 [facility] 2022-09-09 2022-09-09 Outpatient LINK, [facility] [id number] [facility] 00:00:00 00:00:00 DURAN quinteros of Medicin e 2022-09-09 2022-09-09 Orders [facility] [id number] 00:00:00 00:00:00 Only [facility] 2022-09-09 2022-09-[address] [facility] [id number] [facility] 00:[facility] 00:00:00 [facility] 2022-09-09 2022-09-09 Orders [facility] [id number] 00:00:00 00:00:00 Only [facility] 2022-09-09 2022-09-[address] [facility] [id number] [facility] 00:[facility]:00 00:00:00 [facility] 2022-07-28 2022-08-31 Office CLIF, [facility] [id number] [facility] 14:21:45 12:32:13 Visit DURAN AMBULATOR 350.1.13.21 College Y 0.2.7.2.686 [id number] [facility] kenya 300 e 2022-08-17 2022-08-17 Outpatient R RADIOLOGY [facility] [id number] Univers 08:00:20 23:59:00 ity of [facility] 2022-08-17 2022-08-17 Hospital Radiology [facility] [id number] Univers 08:00:00 23:59:00 [facility] [place] [facility]2.7.2.686 [facility] [id number] [facility] tito 807 [address] 2022-08-12 2022-08-12 Outpatient R RADIOLOGY [facility] [id number] Univers 00:00:00 00:00:00 ity [facility] 2022-08-02 2022-08-02 (TEL) STLMLC STLMLC [id number] Co mmon 00:00:00 00:00:00 [facility] - [facility] 2022-07-26 2022-07-26 (TEL) STLMLC STLMLC [id number] Co mmon 00:00:00 00:00:00 [facility] 2022-07-16 2022-07-16 (TEL) STLMLC STLMLC [id number] Co mmon 00:00:00 00:00:00 [facility] 2022-06-30 2022-06-30 (TEL) STLMLC STLMLC [id number] Co mmon 00:00:00 00:00:00 [facility] 2022-06-24 2022-06-24 OFFICE STLMLC STLMLC [id number] Co mmon 00:00:00 00:00:00 VISIT Spirit [facility] PT - [facility] LEVEL 4 [facility] 2022-06-16 2022-06-16 Outpatient R RADIOLOGY [facility] [id number] Univers 16:18:09 23:59:00 ity of [facility] 2022-06-16 2022-06-16 Hospital Radiology [facility] 1.2.840.114 [id number] [facility] 16:18:09 23:59:00 Encounter [place] 350.1.13.10 ity of [place] 4.2.7.2.686 [facility] [id number] [facility] [address] 2022-06-16 2022-06-16 Orders Doctor DENISSE 1.2.840.114 [id number] Univers 00:00:00 00:00:00 Only Unassigned, GLO 350.1.13.10 ity of [place] [facility] 4.2.7.2.686 Reggie [id number] [facility] [address] 2022-06-04 2022-06-04 OFFICE STLMLC STLMLC [id number] Co mmon 00:00:00 00:00:00 VISIT NEW Spir it PT LEVEL 3 - [facility] 2022-06-01 2022-06-01 (TEL) STLMLC STLMLC [id number] Co mmon 00:00:00 00:00:00 [facility] 2022-05-25 2022-05-25 Outpatient R RADIOLOGY [facility] [id number] Univers 00:00:00 00:00:00 ity of [facility] 2022-05-15 2022-05-15 Outpatient R RADIOLOGY [facility] [id number] Univers 09:04:27 23:59:00 ity of [facility] 2022-05-15 2022-05-15 Hospital Radiology [facility] 1.2.840.114 [id number] Univers 09:04:27 23:59:00 Encounter [place] 350.1.13.10 ity of [place] 4.2.7.2.686 [facility] [id number] [address] 2022-05-07 2022-05-07 Hospital Radiology [facility] 1.2.840.114 [id number] Univers 09:00:00 23:59:00 Encounter [place] 350.1.13.10 ity of [place] 4.2.7.2.686 [facility] [id number] [address] 2022-05-07 2022-05-07 Outpatient R RADIOLOGY [facility] [id number] Univers 00:00:00 23:59:00 ity of [facility] 2022-04-30 2022-04-30 Outpatient R RADIOLOGY [facility] [id number] Univers 00:00:00 00:00:00 ity [facility] 2022-04-21 2022-04-21 (TEL) STLMLC STLMLC [id number] Co mmon 00:00:00 00:00:00 [facility] 2022-03-23 2022-03-23 OFFICE STLMLC STLMLC [id number] Co mmon 00:00:00 00:00:00 VISIT [facility] LEVEL 4 [facility] 2022-03-22 2022-03-22 (TEL) STLMLC STLMLC [id number] Co mmon 00:00:00 00:00:00 [facility] 2022-03-17 2022-03-17 (TEL) STLMLC STLMLC [id number] Co mmon 00:00:00 00:00:00 [facility] 2022-03-09 2022-03-09 Letter DENISSE Silva 1.2.840.114 [id number] Univers 00:00:00 00:00:00 (Out) Be CODY 350.1.13.10 i ty of [facility] 4.2.7.2.686 Reggie as [id number] [address] 2022-03-08 2022-03-08 Laboratory Only, Ang Db Test [facility] 1.2.8 40.114 [id number] Univers 09:15:00 09:30:00 Only Krystle Fowler 350.1.13.10 ity of [place] 4.2.7.2.686 Reggie as FABIO?BLEA [id number] [address] MEDICAL OFFICE BUILDING 2022-03-08 2022-03-08 Outpatient [facility] [id number] Univers 09:15:00 09:15:00 KRYSTLE ity o f [facility] 2022-03-08 2022-03-08 OL DIG E/M STLMLC STLC [id number] Common 00:00:00 00:00:00 [facility] 11-20 Spir it [facility] 2022-03-08 2022-03-08 (TEL) STLC STLMLC [id number] Co mmon 00:00:00 00:00:00 [facility] 2022-03-08 2022-03-08 Ivis Humphreys [facility] 1.2.840.114 [id number] Univers 00:00:00 00:00:00 [facility] 350.1.13.10 [facility] y of [place] 4.2.7.2.686 Reggie as FABIO?BLEA [id number] [address] MEDICAL OFFICE BUILDING 2021-11-20 2021-11-20 (TEL) STLC STLMLC [id number] Co mmon 00:00:00 00:00:00 [facility] 2021-11-18 2021-11-18 Outpatient R RADIOLOGY [facility] [id number] Univers 15:31:25 23:59:00 ity of [facility] 2021-11-18 2021-11-18 Hospital Radiology [facility] 1.2.840.114 [id number] Univers 15:18:50 23:59:00 Encounter [place] 350.1.13.10 [place]2.7.2.686 [place] [facility] [id number] [address] 2021-11-18 2021-11-18 Hospital Radiology [facility] 1.2.840.114 [id number] Univers 15:00:00 15:17:00 Encounter [place] 350.1.13.10 ity of [place] [facility] 4.2.7.2.686 [place] [id number] [address] 2021-11-04 2021-11-04 Telephone Avril [facility] 1.2.840.114 [id number] Univers 00:00:00 00:00:00 Saleem [facility] 350.1.13.10 ity of [place] 4.2.7.2.686 [facility] PROF[facility] [phone] N[place] xochilt GALVEZ [address] [place] [address] 2021-11-03 2021-11-03 Rehabilitation Therapist Lab, Ang - [facility] 1.2.840.1 14 [id number] Univers 14:30:00 14:45:00 Visit AvrilSaleem quinteros [facility] 350.1.13. 10 ity of [place] 4.2.7.2.686 Reggie as FABIO?BLEA [phone] Nc xochilt HATHAWAY [address] MEDICAL OFFICE BUILDING 2021-11-03 2021-11-03 Outpatient Priyanka YINGSALEEM Quinteros [facility] [id number] Univers 14:30:00 14:30:00 AVRILSALEEM Quinteros [facility] 2021-11-03 2021-11-03 Office Avril [facility] 1.2.840.114 [id number] Univers 13:40:00 14:21:43 Visit [facility] 350.1.13.10 ity of [place] 4.2.7.2.686 Reggie as FABIO?BLEA [id number] Nc sandralogan [address] MEDICAL OFFICE BUILDING 2021-11-03 2021-11-03 Outpatient Priyanka SALEEM LOUISE [facility] [id number] Univers 13:40:00 14:21:43 AVRILSALEEM Quinteros [facility] 2021-11-03 2021-11-03 Orders Doctor SALCEDO 1.2.840.114 [id number] Univers 00:00:00 00:00:00 Only Unassigned, GLO 350.1.13.10 ity of [place] [facility] 4.2.7.2.686 Reggie as [id number] [address] 2021-11-03 2021-11-03 [facility] 1.2.840.114 [id number] Univers 00:00:00 00:00:00 [facility] 350.1.13.10 ity of [place] 4.2.7.2.686 Reggie as FABIO?BLEA [id number] Nc [address] MEDICAL OFFICE BUILDING 2021-10-27 2021-10-27 Orders Doctor DENISSE 1.2.840.114 [id number] Univers 00:00:00 00:00:00 Only Unassigned, GLO 350.1.13.10 ity of [place] [facility] 4.2.7.2.686 Reggie as [phone] [facility] [address] 2021-10-26 2021-10-26 OFFICE STLMLC STLMLC [id number] Co mmon 00:00:00 00:00:00 VISIT Spirit ESTAB PT - CHI LEVEL 4 [facility] 2021-10-16 2021-10-16 Emergency X [facility] ERT [id number] Univers 13:30:00 17:54:00 ALLEN teague [facility] 2021-10-16 2021-10-16 Emergency [facility] 1.2.264.948 [id number] Univers 13:30:00 17:54:00 Allen [place] 350.1.13.10 i ty of [place] 4.2.7.2.686 [place] [facility] [id number] [facility] [address] 2021-09-28 2021-09-28 OFFICE STLMLC STLMLC [id number] Co mmon 00:00:00 00:00:00 VISIT Spirit ESTAB PT - CHI LEVEL 4 [facility] 2021-09-22 2021-09-22 (TEL) STLMLC STLMLC [id number] Co mmon 00:00:00 00:00:00 Spirit - [facility] 2021-09-17 2021-09-17 (TEL) STLMLC STLMLC [id number] Co mmon 00:00:00 00:00:00 Spirit - [facility] 2021-09-15 2021-09-15 OFFICE STLMLC STLMLC [id number] Co mmon 00:00:00 00:00:00 VISIT EST Spir it PT LEVEL 3 - [facility] 2021-09-15 2021-09-15 SUB ANNUAL STLMLC STLMLC [id number] Common 00:00:00 00:00:00 MCR Spirit WELLNESS - CHI VISIT [facility] 2021-09-14 2021-09-14 (TEL) STLMLC STLMLC [id number] Co mmon 00:00:00 00:00:00 [facility] 2021-09-08 2021-09-08 (TEL) STLMLC STLMLC [id number] Co mmon 00:00:00 00:00:00 [facility] 2021-07-21 2021-07-21 OFFICE STLMLC STLMLC [id number] Co mmon 00:00:00 00:00:00 VISIT Spirit ESTAB PT - CHI LEVEL 4 [facility] 2021-06-22 2021-06-22 (TEL) STLMLC STLMLC [id number] Co mmon 00:00:00 00:00:00 [facility] 2021-04-21 2021-04-21 Emergency [place], [facility] 1.2.840.114 [id number] Univers 17:57:00 20:45:00 Willie Wade 350.1.13.10 i ty of [place] 4.2.7.2.686 [facility] [phone] [facility] tito [address] 2021-04-21 2021-04-21 Orders Doctor DENISSE 1.2.840.114 [id number] Univers 00:00:00 00:00:00 Only Unassigned, GLO 350.1.13.10 ity of [place] [facility] 4.2.7.2.686 [facility] [phone] [facility] tito [address] 2021-03-11 2021-03-11 Outpatient STLMLC STLMLC [id number] Common 00:00:00 00:00:00 [facility] 2021-03-04 2021-03-04 Outpatient STLMLC STLMLC [id number] Common 00:00:00 00:00:00 [facility] 2020-11-28 2020-11-28 Outpatient STLMLC STLMLC [id number] Common 00:00:00 00:00:00 [facility] 2020-11-24 2020-11-24 Outpatient STLMLC STLMLC [id number] Common 00:00:00 00:00:00 [facility] 2020-10-21 2020-10-21 Outpatient STLMLC STLMLC [id number] Common 00:00:00 00:00:00 [facility] 2020-10-07 2020-10-07 Outpatient STLMLC STLMLC [id number] Common 00:00:00 00:00:00 [facility] 2020-10-06 2020-10-06 Outpatient STLMLC STLMLC [id number] Common 00:00:00 00:00:00 [facility] 2020-09-16 2020-09-16 Outpatient STLMLC STLMLC [id number] Common 00:00:00 00:00:00 [facility] 2020-09-12 2020-09-12 Outpatient STLMLC STLMLC [id number] Common 00:00:00 00:00:00 [facility] 2020-08-26 2020-08-26 Outpatient STLMLC STLMLC [id number] Common 00:00:00 00:00:00 [facility] 2020-08-04 2020-08-04 Outpatient STLMLC STLMLC [id number] Common 00:00:00 00:00:00 [facility] 2020-07-30 2020-07-30 Outpatient STLMLC STLMLC [id number] Common 00:00:00 00:00:00 [facility] 2020-07-01 2020-07-01 Outpatient STLMLC STLMLC [id number] Common 00:00:00 00:00:00 [facility] 2020-06-02 2020-06-02 Outpatient STLMLC STLMLC [id number] Common 00:00:00 00:00:00 [facility] 2020-05-29 2020-05-29 Outpatient STLMLC STLMLC [id number] Common 00:00:00 00:00:00 [facility] 2020-05-28 2020-05-28 Outpatient STLMLC STLMLC [id number] Common 00:00:00 00:00:00 [facility] 2020-05-27 2020-05-27 Outpatient STLMLC STLMLC [id number] Common 00:00:00 00:00:00 [facility] 2020-04-22 2020-04-22 Out[facility] [id number] Common 11:39:00 11:39:[address] [facility] 2020-04-15 2020-04-15 Outpatient [facility] [id number] Common 15:20:00 15:20:[address] [facility] 2020-04-07 2020-04-07 Outpatient [facility] [id number] Common 07:48:00 07:48:[address] Sp[address] [facility] 2020-04-03 2020-04-03 Laboratory Lab, [facility] 1.2.840.114 [id number] 15:59:39 16:19:39 Only Fam b I [facility] 350.1.13.10 [place] 4.2.7.2.686 Professio [phone] nal [address] 2020-04-03 2020-04-03 Outpatient R [facility] [id number] Univers 16:00:00 16:00:00 ity of [facility] 2020-04-03 2020-04-03 Outpatient [facility] [id number] Common 11:15:00 11:15:[address] Sp[address] [facility] 2020-03-07 2020-03-07 Outpatient [facility] [id number] Common 08:15:00 08:15:[address] Sp[address] [facility] 2020-02-27 2020-02-27 Outpatient [facility] [id number] Common 11:04:00 11:04:[address] Sp[address] [facility] 2020-02-25 2020-02-25 Outpatient [facility] [id number] Common 10:39:00 10:39:[address] Sp[address] [facility] 2020-01-30 2020-01-30 Outpatient [facility] [id number] Common 15:45:00 15:45:[address] Sp[address] [facility] 2020-01-30 2020-01-30 Outpatient [facility] [id number] Common 15:45:00 15:45:[address] Sp[address] [facility] 2020-01-09 2020-01-09 Outpatient [facility] [id number] Common 11:17:00 11:17:[address] Sp[address] [facility] 2019-11-27 2019-11-27 Outpatient [facility] [id number] Common 14:00:00 14:00:[address] [facility] 2019-05-22 2019-05-22 Outpatient [facility] [id number] Common 16:00:00 16:00:[address] [facility] 2019-05-08 2019-05-08 Outpatient [facility] [id number] Common 16:15:00 16:15:[address] [facility] 2019-03-20 2019-03-20 Outpatient [facility] [id number] Common 08:20:00 08:20:[address] [facility] 2019-02-13 2019-02-13 Outpatient [facility] [id number] Common 16:15:00 16:15:[address] [facility] 2018-11-24 2018-11-24 Outpatient [facility] [id number] Common 16:23:00 16:23:00 [facility] [address] [facility] 2018-11-13 2018-11-13 Outpatient [facility] [id number] Common 16:30:00 16:30:00 [facility] it [address] [facility] 2018-09-28 2018-09-28 Outpatient [facility] [id number] Common 15:00:00 15:00:00 [facility] it [facility] Results Test Description Test Time Test Comments Results Result Comments Source Tissue Exam 2022-09-28 07:24:40 Test Item Value Reference Range Interpretation Comme nts Case Report (test code = 104) Surgical Pathology Report Case: [id number] Authorizing Provider: Duran Wylie MD Collected: 09/09/2022 05:13 PM Ordering Location: [facility] Received: 09/10/2022 11:48 AM SERVICES Pathologist: Ada Locke MD Specimen: Mass, Left renal mass DIAGNOSIS (test code = 3220) x8dkrKFaZEVbr7wpVDDmwGAfMjJnJkZwQlNyOc pc dWMxIHtccnRmMVxlcGljOTYwMlxhbnNpXHNwbHRw Q1CmzpxlESyjPI9mTG9ujHnraDZaqXJvGPYeJxWk z8jnl610dRXtj2ujWNMBigulkDk7wDbhE92jl0F7 DstbV35muAQxMFF8UXHbQGKssHUzVJFyHKC7DZWt wUYjV7biMPHjPX4pecmiKWxeDKhuIFLgmOZ5MQTv pEIsP5QrNRNpZDipKTGgzrz2LdQaFk0brQVmkTjo TPgeSEDhYFCeRXwxDNBrAfScD7sTCjKWWJPARHSK HTVWJALNJVLGSR1PXBsXWIKUP25UBukkMIZjhPKm XI2vE3mWZHLwO0DBJJOJKY6LZIPURSiUNZUZIzMK Bj6ZPCzlF4mJC4aMEMOaN9HOKTBcQ1lqILYskFWg MG2eKXXGW1IiV2orRYcdLD02JEVEETvOHkTJJXEN BWTGSa7KLpTVYY1PPzECL92vPCOwdqb5JBKqMRSF BM5HQqKGUY5ZMHLBIEPVKNjPNT6WLEkiKRMdfQGh NN7xBt9iD3MKW33EGCBXOUNzMbPCEFSVXWUcEMLI PhWNGlrGEAteOXRwyZCtIX9zZf9nDnlYUbKQWDMa DnLJOOTJSLKfNLKZAuSWAisOXOwkPXHmhIJpIO8c Gr6dDUjJPWuKWdDXE3FBGBXyHN3RHLVZS87aXNPD VuTRPiuMRPaeDEHikGMzOZ2qLPPRT5AwHCTLKSXh KGmKSVXAGzXFI9rOABNYEYSUOzfSO1AJIO8XGxwI NtfrNCLlgNIcIT0aS3UQEbPwBn4NQS3LA1GGETCD WBImY1tBHhSWBDrIEVxkYlSIATDZR6iIHn1QVNRv O5cBEHUFCPjJQDSmsf83PLN1EwAgi0R3QRW3TZGr ILHrw8vfVVIwbIIxRuAqToEnWxAeSmsycFOjSSTl QbFeu3czm630oYUgp3yuDEVcYjF5vHFoUQRurQHz X480JFNiHCswl9eih8GzPHLqjZVec1I8IZIEihuk hVz7iGnxA10nd3B2NjfxB2chEDGhSNTgJ0TsMH8d QHPzGau2TIL7TMT6LTQlUKDuV3HoRM0eYCCruISa KEs3e0vpgDzxWODfTTH2s3ipNNlsypFoTO6pqd3v nUa9g6dddzVnGLViWIRidODZXKZnT6PaeVysDx4a sWn4wPqtVghvQIV3Ozz2XI9ywv04ysa3lGvrTOSm qpavCdY4ZXduPRCzwhjuJYu6JVqrJANvyNR2XYKd dETbS3NtSXPgML7tlqy3WJG8KMgwYKRvMfZ5SKNr dMTnEDAeeKqlQFfgh926IZL5HrKfHY2iR4Cda8Q9 hP2mfBZoMTRtvLGyEwEiIFUzvf9mpQWvRPfpm8Rn IYQ6ixC5sIEjeRGbBELdKqL6NXjzEY8vcn51YBGb STJ6zy6auESlyNmjczRcoUScASuzT7DnQEPlc747 DYPmK6UzJJTux5M6bxHoFrWyGWRjmUN5xyW0JGOc OQ5uodwos2azJPzoDRjqYKWcasT0xtR1QCUviRNw M6QtaJ3zTMZvWC3hlodap3fwOUL6EYnhXWWxIFX4 JgRlYZLcx6Hwfnn7WyJum7GauZPkBOhhN42wr760 YYTqwtZkR3afqWDtwicefVJndsllVUrpxoH6ULLn LHatuhgyLAOiVFkqV5hmAoHxANKpvXrbBOyli6Fb AYPzJNVwLpPpsNPbEWQeYfw0CBBobKTtACQwCbGi C6plvykqEhMLCFWwl8kbQ4lhrXPQjWWqV7ZbZXfv bgElGFicTDvjCmHvGLz6XJ27VvUlQICdft85 SYNOPTIC REPORT (test code = 5765) KIDNEY: NephrectomyKIDNEY: NEPHR ECTOMY, PARTIAL OR RADICAL - All Fblmgzucf1cx Edition - Protocol posted: 02/11/2021 SPECIMEN Procedure: Partial nephrectomy Specimen Laterality: Left TUMOR Tumor Focality: Unifocal Tumor Size: Greatest Dimension (Centimeters): 4.5 cm 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 Histologic Grade (WHO / ISUP): G3 (nucleoli conspicuous and eosinophilic at 100x magnification) Tumor Extent: Limited to kidney Sarcomatoid Features: Not identified Rhabdoid Features: Not identified Tumor Necrosis: Not identified Lymphovascular Invasion: Not identified MARGINS Margin Status: Tumor abuts the parenchmyal surgical margin REGIONAL LYMPH NODES Regional Lymph Node Status: Not applicable (no regional lymph nodes submitted or found) DISTANT METASTASIS PATHOLOGIC STAGE CLASSIFICATION (pTNM, AJCC 8th Edition) Reporting of pT, pN, and (when applicable) pM categories is based on information available to the pathologist at the time the report is issued. As per the AJCC (Chapter 1, 8th Ed.) it is the managing phys ician s responsibility to establish the final pathologic stage based upon all pertinent information, including but potentially not limited to this pathology report. 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 CPT Code(s) (test code = 3357) z4ngtBXeGSLdbDU6PqLeYTSjx9jdl5ApcZNr cGFy FTqjkFYdefCyzv61qQI7gZ44UR2tKOAnYkW0CMVo yaP5Dab8LOYuNNTiwAKqN408j4eus9jyslLkaBR5 iWqbQALgekulWxA6OIbzNNSqneozBEd4ZTrgTQWw rJH0NTHkxVIqA4BoGINmZV8orou0DKN4MLawSSAd EmI2SSTbdKIvYDKlcBkaSOgps981XJB0EcSqRQUi koZcsGxsoR6uHkFtXZM5TFExE2nsCMXkVWecVCIb cGFyfQ== CLINICAL HISTORY (test code = 3356) v4idqACdOBNaoNS4TmPgHIOtx5rku3J sdHBncGFy GCujeURhpiKmmr39wJC5cL65CI7kIIVjJqF9XZAi cjT1Zrn2PFYgZARaaIGfA385q9fyr5xwboEwaIF8 oWxnPWHzvgkdBvS8FVqlOUVpdurwCXy6SNrfQSVt oPH3BYIjjZJxG5UcLWKqPB9pclt5ZUH7TTanYBRs QnJ0PTIaiMLnSMNnbShzMUchy317KRG0OcCgMJJx hsKhtCsijE1hWmLbXEHWSI1deVZnFBEmEQNshw2= SPECIMEN SOURCE (test code = 3377) h5famGSgMDGguBO4GbJzNMQrh4bxm6Ls dHBncGFy CYstwTFwlpTime05uUC6pZ36CM7cQONdRcP4SESf nbP9Aux6HMPoADSuiRIkH296h4jdq2fgchCvwYR5 hXhlSBUtozxfTqZ6NAyaNEXyfrnkKVa1XCazBVTd hCC9JVQsmCFqY5NmXGZnGX6ccts3VFH0HZdoLRXu TpJ1VQCbtFHwGXPnlEviPYibk017KVK1JpIgBOZz mmUjhKpzlI3sViDaAZDRFzIrU7guriX0NPHyDXT9 LCBtYXNzXHBhcn0= GROSS DESCRIPTION (test code = [id number]jbo8UfxYGg cGFy [id number]) [file] aRDpJNX8NF4sqSpzLUH3 MICROSCOPIC DESCRIPTION (test code = y5aslGUlLNWmdLB9QeXqXDClj0vgg6 BsdHBncGFy 3371) BAdmgGZewbXvxg48mRF4pL35BF1zWEAoCvS6XAGk ieZ4Mea9BSKnEUSsuYRcW304k9swt8wcmiHkpWT0 yAbwMPFimzpyUyZ5LAkgOHAryklfCVa8LNfzKQPv qHO8QGDkeKSlZ8BkYFBpJN1vuby7PPN8NOkxNOLc WsQ4FFLhqTTmUPHdkSjxSLrtq505FMG0UqPnJXGi gsLvsHzzdS2fOuAvGUAAHsZ7MVuzntMhBPKnp4Qv HVFkj7k2gCOuvKWkb7FysSB1USDag131iu2jSDLy hxXacHnxGTP9OVhiODatZEdlwIDgbPKuhQItLIMi MX0uE4B1yCDrFeABiAi5eSGsPZUrITEbmKFof4Jv iJfdHNWweaIeV2z6hZCcEE4jhgfgshN3SMDzFVA5 ML9iotHgMAceAKEkJNJuyEBeBMThgpRhqRboWVRb jljyFc2hFYborCJuEuJ0bqE8lJrcPP6qwtsohr5v XHBhcn0= SPECIAL STUDIES (test code = 3376) z6rulKIlRTGab5wqMAZqfTIdImFrVoGt ZnRuYmpc sOVhPVurffUcFCcft6FiQ0MxWrHiDDlyhlVqXJLn EtnyhcovHYMkBUB2czIhLVCbGRxpEQMvUCssRs7b oOJcbNxdTdQuPLQll0kqftPBafwtuZx5e7vmITGx WgZ3mIMhBYsqF2nkdzEfbOJoW6EwdGUkaLg7u3yl OtCfHcZ1iYRiKSttX2hnhjObmOYfYYFhKYn4oL89 NCTjuQ3zvRGiYTifefEoYnP7MZknRABwQjH8LQFu cHKnUYOfL1yrKTIiGIohZEEgOFsvcULfLYJ2vZvs a0Q6vCMapLBxqYxeMbSaZeKgNwHBj8PaOSn6zFil O7AnQMAePmL4iCSvQSBtMRgyRBIqSBSsypI1yDoh wdUio46mzLCaJWUnQCLvQoXkwMadKWFdQFUDc4Mq hJdaBAA2hRz8yQhtOlnaDBC9Vav2CQ5fcx70xtv0 gSqzAGMiyhydUgS5AEsfBDJrkbshSCq6YHakKFOn gCV6CJAddLHvC8IjNJKkMO0udsg2PVU7CZisQEKp VqL2KIZywFQoZRMxpGfuKCwvz878ZZH9DrXySD9c A8Zmq2B7yF2ygXSvOJUtrKQvWrQsVTGgnp9aiPJs DSsji8PxHXN4swR7dTGoiVFlAVNuEA02Dkjei1Wy Xvilu1NlH32ccUZ9KJyne4llZX0eQfW7scAlSZal b8jixU2xCvE9NJccPP5gOL9bADOqkL5gbixkPQWa JbFivkmlPCFgrLzdtsCsOl0roNnbPXB8OTosT1te uI6bFpI4PDimO9uurR7sWYf6OCnfrQC5VJSlgE3i AJ8mspcfe2hbPUksDBcyHRNujmS5zmT5XDUshDTw E3NbkX4pNNEdFT1ezfnrt5uuCJF6MAucAEHuQIF3 YfYhIJDqn0Foeba2ZrJdm6DvsWFuKPsoF18hs759 EROslbBdU3yjrGDvsvvvcFQiogibENkaxkI1OJOk XHBsYWluXGYxXGZzMjJcbGFuZzEwMzNcaGljaFxm EDwjSoJhTTPqETkfE3ruJyPvK3VaTLXaVvUfXAhy QUfzqKYxdGWglGY5aN2bFY1nDPTrzXYfW7WfTLWv wfXjdXTaEVA6xIIluEViHQ4bMReclBMbj8gfj1Vl O2sdyCsbqYO5BS0iUNFmPHEsLShwx3HmfW2zVazx fQEjqwndULuajxUzCWbursypWXCaBKamT1eeTtLo SZQpoAysAFcua9PzCDBpLOFqWosclaLxRGz0gsNt CFXdhoiaTMJqyJniqW1fEcTfLhScFfivPS5wXMRj G8miySLqCYRdDKQeU7rtClTevS4jhAycXEsjNjNy PcMbIhUDt026jz2cYHIhiHCgcvKIgEDsmW9aMVcj TVxkNGvnbTExEEsxd7zrPEZag1g4kSQeOGNywmXm z3dyCNafrjMqKYAjrUMxdSLwZKHnr05gVLbzrCek nQtcOSIip9AhrDtph6UpIhZcGGuru5DoT71rtUVk pBDugPiiIQEhgaViBEZkn18na5hkGITsHsJ7aWLx sKW0eMMriVYax1SszEuaNOLao5ybRQVrgt4ggsbx dVJbt1CnjE0sxjgmFMcftQYpohGsOYXcu3w0hHAg ZQBeTACkAXzelMp7YHEmq519tp5sccL9rMEqNIB9 YWlsYWJsZSBhcmUgZXZhbHVhdGVkXHBsYWluXGYx XGZzMjJcbGFuZzEwMzNcaGljaFxmMVxkYmNoXGYx MUeaK0ikHnTaU4QtTRFmZnWezRReM1xwyWApMDNp YWluXGYxXGZzMjJcbGFuZzEwMzNcaGljaFxmMVxk ReChOHMsOKhkA7itXfWiP8IcKNCtUjUgTCumeXKa dgxhOKtqjgErTHbaeyohAQKtCKlsS9mqCwMfRFRq kDxiQXxlg5GcLBDrBRAvQkrgaqIdUEu0oeMyUDKz otlvgOBvbghpDCreemTiBEplfholHAEqPHgtA9ra [file] BpvcFRI3yP== Gross assessment was performed at (test [facility] enter, code = 2777) Department of Pathology, [address] [place] [id number], Technical component was performed at [facility] er, (test code = 2778) Department of Pathology, [address] [place] [id number], Professional component was performed at [facility] enter, (test code = 2779) Department of Pathology, [address] [place] [id number], [id number] 07:24:40 Test Item Value Reference Range Interpretation Comments Case Report (test code Surgical Pathology = 104) Report Case: [id number] Authorizing Provider: Duran Wylie MD Collected: 09/09/2022 05:13 PM Ordering Location: [facility] Received: 09/10/2022 11:48 AM SERVICES Pathologist: Ada Locke MD Specimen: Mass, Left renal mass DIAGNOSIS (test code = [id number]) uZzEwMzNcZnRuYmpcdWMxIH tccnRmMVxlcGljOTYwMlxhb oThGHXfjQLeR1CuvuhqCQvo ZS1hRZ5nzBbscSQhySIzMNF nAjWzl8pbl033kXVxu2aeHY XUcnubsUe3nVgdP23ts1I8U iksX24pvNYiXHZ7CPImOJTn uXUkEJXlIQE5DITmqDTiB7z eGDPuNX1bayrdPRblKLxhMY DrtOX4QMNjaWHpM7YfCXFbP YxbJVLrtij4OuKfLm5nvIIh eTcyMFxwYXJkXHBsYWluXGZ xGsSiR0sNMtUBCEAXMCVVJN QCZMFQHFFYXX6BJSuJBHDDJ 77NQgmsXAIvmPPlRC6mB6gM UXEpA0ZRRXGIVH2JKWHFVJr MNDFGNdCASn8XMSgpJ2iYL4 pVZPUmX6DJDXHyR7yfCNMbu SIlHW1wTFJHL0QwD2ukINbx UO10OXJKPQkKPoPAYZCOSXK USs2VYnOXKK8XYpZBO38mJC Qdcjx1PZZaBJXPGT0ORwPBA E4ZWPWNMVHWBDvERE4ESMea QFKfzHDpHD4hWc5jA9YHU79 NQVRPSUQgRkVBVFVSRVMgSU RFTlRJRklFRFxwYXJcdGFiI C9aKe9fEfaUUgEJVUUqTeJP VFVSRVMgSURFTlRJRklFRFx iSOGliDVhKX0uYb5dSSuAGZ mLMqMMD8UBENRbYX1GBPIQP 04gSURFTlRJRklFRFxwYXJc wXNvTG8yOOGXG2FvNGEFYUX vLZsJBEZYThVCI2oVTDOKJN EWZddPN9OVFZ0JOmwKMfxyY RMgnLWtUT1oH7TGIeAwZy9N XP9KR6AKZOQQKAQoN0pKVzN MVSfITOcgBjWYLJKNV1mMOc 9CCMIrI1zRPYUKQMiFTWRek v89QLI7KdRuq3P8SGF6DXVw ISWoy4smNOAzsKYcDgBlFyF cZnRuYmpcdWMxXGRlZmYwe1 jfs032yMJpn1kdCOJwEnX0x RFdLCWqbJYwA218HHAiXIaw i2xsw4EfEAKbkDLap1P3TRW SscligTs4yDfmT31ff6U0Yp dbL6niIPYfZMDnN5OeYV8wD BIrNzx6TOI8LZV0OGUwXLQi H3OuEV0kFCLhwWKuCQt5o3s gkMtjWLSyAKF2b4shZAfokp MiMZ8sda4kuHp8u2twoeFwA DBjWMZvpCMRKYTyR4NujYwa Rp2dnZk9pIcvBchgXHV1Sel 2UV6pns24mcu4aYmqBIKinl vgKcK5QBidCMIwlgncFSd8F MezJRIwwSO8GLHufLVbW4Og SHXbJU0fznf3ZVN5IWaePAK yYuX4ATKcrDHrHKIttLgyIL zdy430LUR7RvKoTD6jU9Lsy 8Y9mZ1obADjKFVmoXHgGfVl YWMcts7bsCAjHGfcs6EbWLU 8wqT1aINsnOXhQLIvJjV4BC caNQ0vda90CPRiBWC7kc9ou HQnuZxfzkDhaCTeAEghD5Sk ASPow357UGTuZ9OtRJXrb5U 5puPjAoAjBQZpgOP1woK7PF EwCL4kudlri8wjLPksRKziD YNrslE5fwX0HVDaaMMrD0Ef oJ0lNXTxPD5ivkutb3eqIYT 3KCxfHNFgHXG6DiByBDJyz8 Cfygl9SaRom4NsdCAfVWzaG 31jv985EBRrflRwF9ldsHKq lhsgrQTvehwyBRnqscP5OHZ iKMzjwgrrRTBqJVmiI2wuDq CcZHMvaYufUWbek3IpAOXcO RWiEoQrkSWrQRHiVut5CCJi rBVjUOPuLyOmD8quhnnpHhU DHDGdc3tsD8mfqAHUyYSmT4 QgUGhvbmUgTGluZTogNzEzL Yu8EK85WzLaXIXgec22 SYNOPTIC REPORT (test KIDNEY: code = 5765) NephrectomyKIDNEY: NEPHRECTOMY, PARTIAL OR RADICAL - All Obxlyoudh2mo Edition - Protocol posted: 02/11/2021 SPECIMEN Procedure: Partial nephrectomy Specimen Laterality: Left TUMOR Tumor Focality: Unifocal Tumor Size: Greatest Dimension (Centimeters): 4.5 cm 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 Histologic Grade (WHO / ISUP): G3 (nucleoli conspicuous and eosinophilic at 100x magnification) Tumor Extent: Limited to kidney Sarcomatoid Features: Not identified Rhabdoid Features: Not identified Tumor Necrosis: Not identified Lymphovascular Invasion: Not identified MARGINS Margin Status: Tumor abuts the parenchmyal surgical margin REGIONAL LYMPH NODES Regional Lymph Node Status: Not applicable (no regional lymph nodes submitted or found) DISTANT METASTASIS PATHOLOGIC STAGE CLASSIFICATION (pTNM, AJCC 8th Edition) Reporting of pT, pN, and (when applicable) pM categories is based on information available to the pathologist at the time the report is issued. As per the AJCC (Chapter 1, 8th Ed.) it is the managing physician s responsibility to establish the final pathologic stage based upon all pertinent information, including but potentially not limited to this pathology report. 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 CPT Code(s) (test code f2zbhYZpCXFsgRE1VqDrQEI = 3357) su0xtj3HfbJZfuOKwVNtjjP HygcKkhh46vJO1tS80FS9nX QKvObJ6YPJglxV3Mjw7ZIOe GNBajIKzU913j2yrd4uvmiG xiVG2gWyoDQHyulutYeU5NI bfLOCmcczsPFk0RMmjPTXsa QO0EHTcdDTtD7AbZBOhWE5y qsa8PQS4NTwtFHZwUjI6IDU ugFRlRLIasYmaZBvit075WC H9FtLkGYIifkJakNxwcY8wR uKwHDO4LHBkM9uyULUyIFkq NDJccGFyfQ== CLINICAL HISTORY (test h0ywwPJxEVYfdDR1UrDbTHM code = 3356) fm0slo0VamZAzmDWpWDincK VuebKabl19qDF2jI98ZI9uD QItMlF5LNOudcA3Yar6SKEb SHBzfTMkD073v8oyc6qoshV fwJZ9cDocYXEdpadiWbB2RN ypVTJdcfsrLTo7BGgpSYTxw WJ6AFLjmLAeD1UcWHBjBN7h wak6BEP7GIqoHKQpGlF6MVA rqECvOBFnrKkbGMmmo784XW M3DlSyIRPiiaXmnRpgoM9lD rJoHDJENK1rgECzZRVzRGTf cn0= SPECIMEN SOURCE (test y1sgvTNsZAZqmCX4NlInZBZ code = 3377) mb2ebn9GcvMWghDBiRNiupK HpwzWlki21pPF5fN10JP9oS HJkCvK7LLPykgM8Eio6ICJk OANdjKEpX912c9tjp1vokaR ssQZ5fKopLRKxqbabNxK2VA acLDFwdsumBMe0XFetESIlt IL9ALGqoXKaM8WzGNGwBU1m fng5BLN8IRluXXRjXnX7MBP aySEbWAXpmFpqCYhyr921SL F6VwUiYYTfrqHanJmjyQ8hP kAmLKXAKeCyU6bbowX7KXTj LVL1SWToHIWuQMIdoa4= GROSS DESCRIPTION s1vpaAVlXZYryKG2DuFkXSH (test code = no0sek0VlfRYhcJIhDUiwoL [id number]) UjnnIgxq62aBB9iZ33DG2lY KXpEwI6QVKwnpX6Ydm3WOKd CQKqqBWuO457p0fuy2qxqmR zmNI4WYKkLOXmA0DrDY1uPS GhvUTxQ18fmKKdTWY9AWPgL CPiqJBfXUPlJIE3NSGoeFPn T7haAKXrJK4qqhsuDZldZSs nLKHgtNO4XREngSHhU6CvCG OcNZbePWKjmfv7FfVcWn1tu BMmsZcdTWrcJODbe5gnCLQm xGKvLXE9GEaocEAuZRDuWVM uRYm0BUCgJKyhqREmFP0ojK uvUohfyAjco1UodPKtNYovQ GLcZHSbMWfuAOPyJ7UTTPDs MpzxUnK7WbXeVWu8KRimE6Q SBPLtUTEpVtP1GeaxPuY0RL l7KEQAIb6kLjE6RYYlMTu4Z KW8IVEyALcarOXkXXmzSrsw DIiyYLGxpAHiORhpldA1SHW bQJhfPZLvMvBoTG9tWXCqfm 2mzEMvRLFiFoFxNgXrYAz5Z WIeDuGuf0vmCSeqYyWkCGHt n5e9yFQ4zRZmkWR3gOYclLr iBQ3qqUMcUM7LZzRhinOsV5 DyLFKenDglIgDuFIe9X0qgH tNlvXYxrFWgCD2qpVNvVABm TFKvTDs3LWRvDYRhJzj6CJl vKQBbMZZeMRV6QMDcB0OtEE fsWBGeZOOeEZ23SCvtIa67L SoiWf47WQdfWpQuD11jnCYh CN7mNHSwMVSvkjMcH9NolVR zqDmepQXvFNHcaoGdkJ2tvQ L8aWDfOPDme5gfnghocDYkj rJzLO8ddQ93EK1jVGObmwim SPDbwqpcLKVsdQBaNS6wPDp dNG2lOPkdUg85KXqgJAMoqH QlLRGnV4Noi82uiuwzlgW4E TLmysGxPKncaDueG2pkS7Yz o8LasPSwDVN9IA6asIqahzW qj2RcsUn8RFgsaJ6bvzewW7 eoSL3cv9Hen3nuM4sroCNsT ZHcve31pW9rgYOixVV7uKTp m6ZrASVakGrxEUOdFHKrERZ wwBBzZJmuk3TuF4KwMOXgGA H2XHLiPMR9EIHnNEtmZUBaT JAyeLMoLSM6hZEwcgzgoFly ZPGuirHuX5s7bTYrNR0bbdx axlDduvDlD22pHUFql2j7hW peNHZhKYGaiIPbEhO7mMQmH 5Rwm5JwCImasZRowsWlmkYq im8gd1j9QSXzcnLilqXxRPX vIHRoZSBraWRuZXkuICBUaG WgWFPvocWcrN4wcQKnOOArG U2dgzTjsK9hvmOcjEJrISLy FN8aaOKoUOZyxmIdaB3gBdW pDJsnYR0sq1OeqIIqt5AldM n3tESlEWJrmRuuCWq1UScwP XNcv6OqqVYePANxXZBiFi4o yHfhVPcmNTXuBA4eFTJsAJO 2UFrwBKEmCgy6WOziUBUpOY 1gxNyrTOvojMCqT1cuYTNfj kNFnWKuffCSVNVfjBnqG3As cmluZXBocmljIGZhdCBtYXJ ojX0seRLqEHHieoNoSWBpBO UbOWnnGYJDKMRxzDKmy6ibv Zyuc9YicKLaUR66KRIvwPIt KKB9RX1gbMywQQI0 MICROSCOPIC x2fzhPSbPVPtlMR4LcUsAAD DESCRIPTION (test code az3thp3OjcFGzdCIvISafpU = 3371) RmteXpwm26mOR8aB27HR7bE VJnHvE9FVOyfmA0Hyw2VNDm MFLovGHkK392l9xzg5fwtrH rvEX1eAncNTFnmpmgXsK5FC epKGVzkpynGPa7IIhyLQWak DA5ILSjpUAxM3IpBFNfHH8u ehe8VQX9KRiyMSXfUgG2WMH dgCHcNROepQmcHQqho667KG J7AhHdKWQiruNwvZtpwL9mW nMrKDWRIvZ4AMigdiUfPFUz d3DlAKYjp6w2oFXhiIQkk3L eyPU7IURsl158jf8gJHIqto XubBvxBUT7ZVhnCDntJJwzz VTdlNJnhBTfKMKjDH3tS2C0 oAErWjXVaOy4tDUnVFEuAIA yhFHcc2NvyDvtHCDrdaXtK1 s3dLBuCV0ndaspodT4JKEhJ CG7OF4ncfPhVHtuOLXhCXXp bHMpLCBhbmQgdGhlIHZlcnk vFj9ePIodmQFyKiA5fvV6nX upRT0gikuury5zWWJggy5= SPECIAL STUDIES (test q8gkcPClITVgw7amXDPxvFS code = 3376) uZzEwMzNcZnRuYmpcdWMxIH swadCwNPddi7GhO1UeHqDhG FxhbnNpXGRlZmxhbmcxMDMz SMZ9jcHfJUAwMJpuRLKoPYy dEw3srPTjzMmuZsJdGLXwa5 ihneNRhxiqpWu8k5pkXXTfA yI0wGYqUJtbI4yzdeGvbKDr H2IhmNEooQa6n4zaMnScLhQ 6oPRgHMbvI4yphaLxsUFuQH SiCBv7rS62DTUzpQ0zvJDoK GistvHvUcH7ASnySNShZyT4 KEIddTOvAPJvG1bhACQlKLa aLVGpOTzlyXKdVWE1dWdgx3 R5oXBatXBhgJitDpDhWfDfS mKEt1KgUVv0oGotD5EoQLAi ImY5zQDmLVGlTEdjTZLzBZI xexO9cKirdaYcm82ypTEkNU YwXGZzMjBcbGkwXHJpMCBDb 7DshBdwICJ3oGp0qZrvBfhb HBB4Gvd4XP4jrm13vzu3uCf uTIZxgutaNvU6WGsfUZPzrm pwTRu8KYdyRPPolNV7PSEct NQiQ1WnDEEgKF8izof4ZTE4 BJcqCXEvXkE6BDPvpFBaCFE tfSmiIDmjk023YYC0OdPzBB 5aV5Vxy0Q0wW7nhTWbAFSza INlQeHmVZWmdt9roCLvWDwp v0NzRMP3yjC8dCNtdBCdXWX dNU71Oibgl9OuJjtoz1SaP2 3pbZV8FYdop1zbIM3aPdK7b xOyQPxcs8girI5qOpP4YItz IE8lQQ4sQWCxcK4yfxvjVRI nYnJkcmhlYWRccGdicmRyZm 1zcJpvQTD6ZVmmL7qkvB0jK vE8CWzxD7klvT0lATk4EBzt hWY8RKAxjD7tBN6lytfqv5k lVUsgJFdpOOVmxlW8gjS7PR GuqMPzS6CriM1mBTEmFQ0ce qvzp7aoIRW6THoeZEQfLHG9 VnMxZCJpv7Uphgz3WwMjo0C hjSRfZBlfQ84lc594URIuvw IoZ9atvWGyzlecmDWdhmceG NohfnU8TJKxBAVnMYpyDGFo XGZzMjJcbGFuZzEwMzNcaGl jaFxmMVxkYmNoXGYxXGxvY2 bnYqLdW0GtJJIdKnHiRTftY KtsrTLffFLyfUB0uB3lSJ5c DBLdwCLmG3ZaGNAsjiXljFF xMRU9lYAsuWFtLC5pUNkwsM Ncb3ynv8VbG0yubFbhmIE0Q E8bUXEtAYWbABczx5TsbJ8w LlxwbGFpblxmMVxmczIyXGx drlylEJFyVFclK1hvDjHoTQ NlhQjjAAune5SvXITjMMPaB awagoLoKFp3guSxRYIcseyo CCRdwDjbrB6iIxAyQtQdMww aUM2rOZUzO8jmiSDuJMUaQR YnJ0xlYfXenT9rpExiGSwiK vBvMoQpEhJFe442wt2iBHIs iRUfubYFuBLrsX4dJIxzFFy cRUypsNGqBGqua3lkZRJwl8 y6nEJeSHYapgRyp7jqGEglh vZdKBZuzLOfpKPwLIAmn82t CGdglLasoPylUWSmf2HcaSf hl4TtTxRsNVadb0YeH14hrM JvbCBzbGlkZXMgcnVuIGFsb 26nl8xfYSIgHpR7hFZajYW9 sNLyeOBtd9XkxCltRYLgq8g fTXEenc1owctoeEKvm6LifE 5pbmcuIEludGVybmFsIHBvc 7n2qOBpMPJdONShBWzraVc5 RBMxz796lr6ggtD7mRYlJDR 2YWlsYWJsZSBhcmUgZXZhbH VhdGVkXHBsYWluXGYxXGZzM jJcbGFuZzEwMzNcaGljaFxm LLyhApExUJRdITnsA9pdRgG pL9LaYHIuPnLthDIgL3rbaG FyXHBsYWluXGYxXGZzMjJcb GFuZzEwMzNcaGljaFxmMVxk TqCqADTaWEicD8nkVcLsX0P yXGZzMjIgIFxwbGFpblxmMV xmczIyXGxhbmcxMDMzXGhpY 8vnHqPeVDHxbZekKKaqp0Zg KIMlHGGdLrfizoHcRIc8seE oXHBhclxwbGFpblxmMVxmcz CzYAhohwhuDZRqQUdmA2clV vXtKJSmcNyaHVwkq8TxZFZd GNXuWrnvfiMbRRvgsXRep2d pa9OtM9nsuRcurDJ0RLWmM0 jqtEMknFS8USS9dC0mIHuaf nLnSTKla7KfLCJvVMEoUjG6 eS6iGWH3McEOfUwqLWZwJBf uXGYxXGZzMjJcbGFuZzEwMz NcaGljaFxmMVxkYmNoXGYxX FneO5xmEcBzQ6TgTKQdBwIf nJvxZAxmLAi4GsorqTZqydv mMVxmczIyXGxhbmcxMDMzXG rwB0qkXpGlWDVqvOwuKKrnv 2NoXGYxXGNmMlxmczIyIHMg GGXjpCWuqCJPLG49ABYlZPB tlIacqZ9ejHOICIMnljD2h7 D5MLjiVLAbBEl2XSshbrAmT EOchI2iCAJlOM2cWLe8stMd NTPax4EsXY2hBTAkqGFoEUA 2MKXgx2OlI5Nrf1JeTYJxEG Wnyu5guuYtIvTDkTEpTFAse s18MVNqMF2pB4ilWZYsSGQe ygYznDXoe0LdWBXlwGS2zBV kDN2BXvJXk69zJMBwKLXXuv QjDBIbrJbzlUO6akZ2pF2xB iBUaGUgRkRBIGhhcyBkZXRl vb3uisJnQTWpQHAwt0BgkBT wzJMvueJfA2Ugy7QrIVAxna 08NVepmBCgcr53ZS0rJ7Ypi 6EeyR8nJXkbGKUtr5XhiDQz lFKmIIPdv6TwM2cszuwpWYg uuXCtmB8kIGHrBYi2ZSSqh4 YjJPCur4FqQhXaluOyVMUaX JYkRNIpgA40FKT8gKhjyHkp mpOuYN9vLBImczRuQGIhHAD yeD0cVRiegfKjOQIrwhU6h0 F3KJjzPMRnzgGuMdygSQL3n zJyrvN1wRGpQ9sjduztHXgm GUQaj1HimP5jeHJTtIDzq2U afXRwsLKEdKNyQQ9fobTeDA 7uXPG4PNdyBONSRQDeDTboO ZLnKAG5ODqbYpukYQO2yhZt QYYui3GuRShiZ1uiV07lbGt isRf4nDMbdTbtlUGmxQEsCZ VnffX1c7P2AGZsx9FwfaglU HBsYWluXGYyXGZzMjJcbGFu ZzEwMzNcaGljaFxmMlxkYmN jPVZiMEutG5pgTyDuBlAnSc chNDK0tX== Gross assessment was [facility] performed at ([facility], code = 2777) Department of Pathology, [address] [place] [id number], Technical component [facility] was performed at ([facility], code = 2778) Department of Pathology, [address] [place] [address], Professional component [facility] was performed at ([facility], code = 2779) Department of Pathology, [address] [place] [address], [id number] 07:24:40Surgical Pathology Report Case: [id number] Authorizing Provider: Duran Wylie MD Collected: 09/09/2022 05:13 PM Ordering Location: [facility] PERI[facility] Received: 09/10/2022 11:48 AM SERVICES Pathologist: Ada Locke MD Specimen: Mass, Left renal mass KIDNEY, LEFT, PARTIAL NEPHRECTOMY: - CLEAR CELL RENAL CELL CARCINOMA, WHO/ISUP GRADE 3 - TUMOR SIZE: 4.5 CM (GREATEST GROSS DIMENSION) - TUMOR LIMITED TO KIDNEY - NO SARCOMATOID FEATURES IDENTIFIED - NO RHABDOID FEATURES IDENTIFIED - NO LYMPHOVASCULAR INVASION IDENTIFIED - TUMOR ABUTS THE PARENCHYMAL SURGICAL MARGIN - 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 Chucky MD on 09/25/2022 at 3:11 PMKIDNEY: NephrectomyKIDNEY: NEPHRECTOMY, PARTIAL OR RADICAL - All Eeivozvdz2kb Edition - Protocol posted: 02/11/2021PECIMEN Procedure: Partial nephrectomy Specimen Laterality: Left TUMOR Tumor Focality: Unifocal Tumor Size: Greatest Dimension (Centimeters): 4.5 cm 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 Histologic Grade (WHO / ISUP): G3 (nucleoli conspicuous and eosinophilic at 100x magnification) Tumor Extent: Limited to kidney Sarcomatoid Features: Not identified Rhabdoid Features: Not identified Tumor Necrosis: Not identified Lymphovascular Invasion: Notidentified MARGINS Margin Status: Tumor abuts the parenchmyal surgical margin REGIONAL LYMPH NODES Regional Lymph Node Status: Not applicable (no regional lymph nodes submitted or found) DISTANT METASTASISPATHOLOGIC STAGE CLASSIFICATION (pTNM, AJCC 8th Edition) Reporting of pT, pN, and (when applicable) pM categories is based on information available to the pathologist at the time the report is issued. As per the AJCC (Chapter 1, 8th Ed.) it is the managing physician's responsibility to establish the final pathologic stage based upon all pertinent information, including but potentially not limited to this pathology report. 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 [id number] massA. Kidney, left, massA. Mass.Received fresh, labeled with the patient's name, MRN and "left renal mass" is a 65 g, 4.6 x 3.5 x 2.5 cm is an intact partial nephrectomy with a significant amount of perinephric fat (8.0 x 8.0 x 2.5)Sectioning reveals a well-circumscribed mireles-pink focally hemorrhagic mass which is approximately the same size as the kidney wedge (4.5 x 3.5 x3.0), that is abutting the parenchymal margin and comes within 1.0 cm of the capsule, mass is grossly confined to the kidney. There is minimal to none uninvolved renal parenchyma. The mass is submittedentirely in cassette [id number].Ink Code: Blue: Parenchymal marginBlack Capsule/perinephric fat marginZara Omayra, SCK 7 was performed with appropriate control, and the stain is interpreted as negative. Multiple levels of the parenchymal margin were examined (21 levels), and the very focally abuts this ma rgin. The interpretation of this case included the use of immunohistochemistry or special stains.Control Slides Examined: In-house known positive controls were evaluated along with the test tissue. These control slides run alongside of the patients sample show appropriate staining. Internal positive and negative controls when available are evaluated Immunohistochemistry technical testing was performed at [facility], Pathology Laboratory where it was developed and its performance characteristics were determined. It has not been cleared or approved by the U.S. Food and Drug Administration. The FDA has determined that such clearance or approval is not necessary. The test is usedfor clinical purposes. It should not be regarded as investigational or for research. This laboratoryis certified under the Clinical Laboratory Improvement Amendments of 1988 (CLIA-88) as qualified to perform high complexity clinical laboratory testing.[facility], Department of Pathology, [address] [place], [place] [id number], [facility] De partment of Pathology, [address] [place] [address], [facility], Department of Pathology, [address] [place] [address], WBRZV METABOLIC PANEL 2022-09-11 06:27:23 Test Item Value Reference Range Interpretation Comments SODIUM (BEAKER) 140 meq/L 136-145 (test code = 381) POTASSIUM 3.3 meq/L 3.5-5.1 L (BEAKER) (test code = 379) CHLORIDE (BEAKER) 111 meq/L 98-107 H (test code = 382) CO2 (BEAKER) 25 meq/L 22-29 (test code = 355) BLOOD UREA 12 mg/dL 7-21 NITROGEN (BEAKER) (test code = 354) CREATININE 0.70 mg/dL 0.57-1.25 (BEAKER) (test code = 358) GLUCOSE RANDOM 148 mg/dL 70-105 H (BEAKER) (test code = 652) CALCIUM (BEAKER) 8.5 mg/dL 8.4-10.2 (test code = 697) EGFR (BEAKER) 92 Interpretatio n of eGFR (test code = mL/min/1.73 values Stage De scription 1092) sq m Result G1 Leslye l or high >=90 G2 Mildly decreased 60-89 G3a Mildl y to moderately 45-5 9 G3b Moderately to s everely 30-44 G4 Severl y decreased 15-29 G5 Kidney failure <15Reported eGF R is based on the CKD-EPI 2020 equation that d oes not use a race coefficientEsti mated GFR is not as accur ate as Creatinine Milana dolly in predicting glom erular filtration rate . Estimated GFR is not appl icable for dialysis patien ts Pan Devulcanizer ID - REYNA GCBC W/PLT COUNT & AUTO [id number] 06:20:00 Test Item Value Reference Range Interpretation Comments WHITE BLOOD CELL COUNT (BEAKER) 12.3 K/ L 3.5-10.5 H (test code = 775) RED BLOOD CELL COUNT (BEAKER) 3.50 M/ L 3.93-5.22 L (test code = 761) HEMOGLOBIN (BEAKER) (test code = 11.4 GM/DL 11.2-15.7 410) HEMATOCRIT (BEAKER) (test code = 33.1 % 34.1-44.9 L 411) MEAN CORPUSCULAR VOLUME (BEAKER) 95 fL 79-95 (test code = 753) MEAN CORPUSCULAR HEMOGLOBIN 32.6 pg 25.6-32.2 H (BEAKER) (test code = 751) MEAN CORPUSCULAR HEMOGLOBIN CONC 34.4 GM/DL 32.2-35.5 (BEAKER) (test code = 752) RED CELL DISTRIBUTION WIDTH 13.0 % 11.7-14.4 (BEAKER) (test code = 412) PLATELET COUNT (BEAKER) (test 264 K/CU MM 150-450 code = 756) MEAN PLATELET VOLUME (BEAKER) 10.0 fL 9.4-12.3 (test code = 754) NUCLEATED RED BLOOD CELLS 0 /100 WBC 0-0 (BEAKER) (test code = 413) NEUTROPHILS RELATIVE PERCENT 73 % (BEAKER) (test code = 429) LYMPHOCYTES RELATIVE PERCENT 20 % (BEAKER) (test code = 430) MONOCYTES RELATIVE PERCENT 6 % (BEAKER) (test code = 431) EOSINOPHILS RELATIVE PERCENT 1 % (BEAKER) (test code = 432) BASOPHILS RELATIVE PERCENT 0 % (BEAKER) (test code = 437) NEUTROPHILS ABSOLUTE COUNT 8.90 K/ L 1.56-6.13 H (BEAKER) (test code = 670) LYMPHOCYTES ABSOLUTE COUNT 2.50 K/ L 1.18-3.74 (BEAKER) (test code = 414) MONOCYTES ABSOLUTE COUNT (BEAKER) 0.70 K/ L 0.24-0.36 H (test code = 415) EOSINOPHILS ABSOLUTE COUNT 0.06 K/ L 0.04-0.36 (BEAKER) (test code = 416) BASOPHILS ABSOLUTE COUNT (BEAKER) 0.03 K/ L 0.01-0.08 (test code = 417) IMMATURE GRANULOCYTES-RELATIVE 0.50 % 0.00-1.00 PERCENT (BEAKER) (test code = 2801) CBC W/PLT COUNT & AUTO [id number] 22:12:52 Test Item Value Reference Range Interpretation Comments WHITE BLOOD CELL COUNT (BEAKER) 13.8 K/ L 3.5-10.5 H (test code = 775) RED BLOOD CELL COUNT (BEAKER) 3.39 M/ L 3.93-5.22 L (test code = 761) HEMOGLOBIN (BEAKER) (test code = 11.1 GM/DL 11.2-15.7 L 410) HEMATOCRIT (BEAKER) (test code = 32.3 % 34.1-44.9 L 411) MEAN CORPUSCULAR VOLUME (BEAKER) 95 fL 79-95 (test code = 753) MEAN CORPUSCULAR HEMOGLOBIN 32.7 pg 25.6-32.2 H (BEAKER) (test code = 751) MEAN CORPUSCULAR HEMOGLOBIN CONC 34.4 GM/DL 32.2-35.5 (BEAKER) (test code = 752) RED CELL DISTRIBUTION WIDTH 13.0 % 11.7-14.4 (BEAKER) (test code = 412) PLATELET COUNT (BEAKER) (test 262 K/CU MM 150-450 code = 756) MEAN PLATELET VOLUME (BEAKER) 9.7 fL 9.4-12.3 (test code = 754) NUCLEATED RED BLOOD CELLS 0 /100 WBC 0-0 (BEAKER) (test code = 413) NEUTROPHILS RELATIVE PERCENT 77 % (BEAKER) (test code = 429) LYMPHOCYTES RELATIVE PERCENT 16 % (BEAKER) (test code = 430) MONOCYTES RELATIVE PERCENT 6 % (BEAKER) (test code = 431) EOSINOPHILS RELATIVE PERCENT 0 % (BEAKER) (test code = 432) BASOPHILS RELATIVE PERCENT 0 % (BEAKER) (test code = 437) NEUTROPHILS ABSOLUTE COUNT 10.54 K/ L 1.56-6.13 H (BEAKER) (test code = 670) LYMPHOCYTES ABSOLUTE COUNT 2.24 K/ L 1.18-3.74 (BEAKER) (test code = 414) MONOCYTES ABSOLUTE COUNT (BEAKER) 0.87 K/ L 0.24-0.36 H (test code = 415) EOSINOPHILS ABSOLUTE COUNT 0.02 K/ L 0.04-0.36 L (BEAKER) (test code = 416) BASOPHILS ABSOLUTE COUNT (BEAKER) 0.04 K/ L 0.01-0.08 (test code = 417) IMMATURE GRANULOCYTES-RELATIVE 0.60 % 0.00-1.00 PERCENT (BEAKER) (test code = 2801) POC-Glucose [id number] 16:16:42 Test Item Value Reference Range Interpretation Comments POC-Glucose Meter (test 172 mg/dL 70-110 H : TE STED AT [facility] code = 1538) [address] [facility] 30: Pan Devulcanizer/Techni david ID = [id number] for LAINEY KEYAIRA Lab Interpretation (test Abnormal code = 82785-5) [facility] [id number] 16:16:42 Test Item Value Reference Range Interpretation Comments POC-Glucose Meter (test 172 mg/dL 70-110 H : TE STED AT [facility] code = 1538) [address] [facility], 770 30: Pan Devulcanizer/Techni david ID = [id number] for LAINEY KEYAIRA Lab Interpretation (test Abnormal code = 05489-3) [facility] [id number] 16:16:42 Test Item Value Reference Range Interpretation Comments POC-Glucose Meter (test 172 mg/dL 70-110 H : TE STED AT [facility] code = 1538) [address] [place] [address], 770 30: Pan Devulcanizer/Techni david ID = [id number] for LAINEY KEYAIRA Lab Interpretation (test Abnormal code = 07816-6) [facility] [id number] 16:16:42 Test Item Value Reference Range Interpretation Comments POC-GLUCOSE METER 172 mg/dL 70-110 H : TESTED A T [facility] 67[address] (BEAKER) (test code = [facility], 1538) [address]: Pan Devulcanizer/Techni david ID = [id number] for DA VIS, KEYAIRA POCT-GLUCOSE [id number] 12:05:01 Test Item Value Reference Range Interpretation Comments POC-GLUCOSE METER 209 mg/dL 70-110 H : TESTED A T [facility] [address] (BEAKER) (test code = [facility], 1538) [address]: Pan Devulcanizer/Techni david ID = [id number] for DA VIS, KEYAIRA POCT-GLUCOSE [id number] 08:37:28 Test Item Value Reference Range Interpretation Comments POC-GLUCOSE METER 213 mg/dL 70-110 H : TESTED A T [facility] 67[address] (BEAKER) (test code = [facility], 1538) [address]: Pan Devulcanizer/Techni david ID = [id number] for DA VIS, KEYAIRA BASIC METABOLIC [id number] 06:35:17 Test Item Value Reference Range Interpretation Comments SODIUM (BEAKER) 139 meq/L 136-145 (test code = 381) POTASSIUM 3.4 meq/L 3.5-5.1 L (BEAKER) (test code = 379) CHLORIDE (BEAKER) 109 meq/L 98-107 H (test code = 382) CO2 (BEAKER) 25 meq/L 22-29 (test code = 355) BLOOD UREA 13 mg/dL 7-21 NITROGEN (BEAKER) (test code = 354) CREATININE 0.71 mg/dL 0.57-1.25 (BEAKER) (test code = 358) GLUCOSE RANDOM 215 mg/dL 70-105 H (BEAKER) (test code = 652) CALCIUM (BEAKER) 8.4 mg/dL 8.4-10.2 (test code = 697) EGFR (BEAKER) 91 Interpretatio n of eGFR (test code = mL/min/1.73 values Stage De scription 1092) sq m Result G1 Leslye l or high >=90 G2 Mildly decreased 60-89 G3a Mildl y to moderately 45-5 9 G3b Moderately to s everely 30-44 G4 Severl y decreased 15-29 G5 Kidne y failure <15Reported eGF R is based on the CKD-EPI 2020 equation that d oes not use a race coefficientEsti mated GFR is not as accur ate as Creatinine Milana alberto in predicting glom erular filtration rate . Estimated GFR is not appl icable for dialysis patien ts Pan Devulcanizer ID - RAKAN WHEMOGLOBIN AND [id number] 05:31:55 Test Item Value Reference Range Interpretation Comments HEMOGLOBIN (BEAKER) (test code = 12.1 GM/DL 11.2-15.7 410) HEMATOCRIT (BEAKER) (test code = 34.9 % 34.1-44.9 411) Pan Devulcanizer ID - [id number]-GLUCOSE [id number] 19:34:37 Test Item Value Reference Range Interpretation Comments POC-GLUCOSE METER 185 mg/dL 70-110 H : TESTED A T [facility] 6720 (BEAKER) (test code = HALLEY KAYE ID, 1538) [address]: Pan Devulcanizer/Techni david ID = [id number] for SA CO KYRIE BASIC METABOLIC [id number] 19:07:55 Test Item Value Reference Range Interpretation Comments SODIUM (BEAKER) 138 meq/L 136-145 (test code = 381) POTASSIUM 3.6 meq/L 3.5-5.1 Specimen modera tely (BEAKER) (test hemolyzed code = 379) CHLORIDE (BEAKER) 106 meq/L 98-107 (test code = 382) CO2 (BEAKER) 26 meq/L 22-29 (test code = 355) BLOOD UREA 13 mg/dL 7-21 NITROGEN (BEAKER) (test code = 354) CREATININE 0.74 mg/dL 0.57-1.25 Specimen modera tely (BEAKER) (test hemolyzed code = 358) GLUCOSE RANDOM 202 mg/dL 70-105 H (BEAKER) (test code = 652) CALCIUM (BEAKER) 8.6 mg/dL 8.4-10.2 (test code = 697) EGFR (BEAKER) 86 Interpretatio n of eGFR (test code = mL/min/1.73 values Stage De scription 1092) sq m Result G1 Leslye l or high >=90 G2 Mildly decreased 60-89 G3a Mildl y to moderately 45-5 9 G3b Moderately to s everely 30-44 G4 Severl y decreased 15-29 G5 Kidney failure <15Reported eGF R is based on the CKD-EPI 2020 equation that d oes not use a race coefficientEsti mated GFR is not as accur ate as Creatinine Milana alberto in predicting glom erular filtration rate . Estimated GFR is not appl icable for dialysis patien ts Pan Devulcanizer ID - ADMINHEMOGLOBIN AND [id number] 18:54:51 Test Item Value Reference Range Interpretation Comments HEMOGLOBIN (BEAKER) (test code = 13.3 GM/DL 11.2-15.7 410) HEMATOCRIT (BEAKER) (test code = 38.4 % 34.1-44.9 411) Pan Devulcanizer ID - 6000Prepare [id number] 12:24:00 Test Item Value Reference Range Interpretation Comments CROSSMATCH (test code = 2264) COMPATIBLE Unit ABO (test code = O Pos 7092688) UNIT NUMBER (test code = [id number] 934-0) Status (test code = 3964418) READY Blood Bank Product (test code RED BLOOD CELLS = 2263) PRODUCT CODE (test code = [id number] 933-2) [facility] [id number] 12:24:00 Test Item Value Reference Range Interpretation Comments CROSSMATCH (test code = 2264) COMPATIBLE Unit ABO (test code = O Pos 1139497) UNIT NUMBER (test code = [id number] 934-0) Status (test code = 4053160) READY Blood Bank Product (test code RED BLOOD CELLS = 2263) PRODUCT CODE (test code = [id number] 933-2) [facility] [id number] 12:24:00 Test Item Value Reference Range Interpretation Comments CROSSMATCH (test code = 2264) COMPATIBLE Unit ABO (test code = O Pos 7951774) UNIT NUMBER (test code = [id number] 934-0) Status (test code = [id number]) READY Blood Bank Product (test code RED BLOOD CELLS = 2263) PRODUCT CODE (test code = O7886V81 933-2) [id number] 11:32:46 Test Item Value Reference Range Interpretation Comments POC-GLUCOSE METER 137 mg/dL 70-110 H : TESTED A T [facility] 6720 (BEAKER) (test code = HALLEY Mathew [facility], 1538) 38412: Pan Devulcanizer/Techni david ID = [id number] for ANTOLIN HOPE LUIS DANIEL POCT [id number] 14:43:44 Test Item Value Reference Range Interpretation Comments POCT Creatinine (test code = 0.7 mg/dL 0.5-1.0 [id number]) Lab Interpretation (test code = Normal 20530-3) [facility]
--- NOTE | 2022-12-13 09:31 | RAD REPORT ---
EXAM DESCRIPTION: CT - Head Brain Wo Cont - 12/13/2022 9:25 am CLINICAL HISTORY: HEADACHE COMPARISON: Head Brain Wo Cont dated 08/05/2022; Head angio dated 02/11/2022 TECHNIQUE: All CT scans are performed using dose optimization technique as appropriate and may inclu de automated exposure control or mA/KV adjustment according to patient size. FINDINGS: No intracranial hemorrhage, hydrocephalus or extra-axial fluid collection.No areas of brai n edema or evidence of midline shift. The paranasal sinuses and mastoids are clear. The calvarium is intact. IMPRESSION: No acute intracranial abnormality.
[2022-12-13] MEDS ORDERED: FAMOTIDINE 20 MG/2 ML VIAL IV ONE (09:33)
[2022-12-13] MEDS ORDERED: ONDANSETRON 4 MG/2 ML VIAL ONE (09:33)
--- NOTE | 2022-12-13 09:46 | RAD REPORT ---
EXAM DESCRIPTION: RAD - Chest Single View - 12/13/2022 9:35 am CLINICAL HISTORY: CHEST PAIN COMPARISON: Chest Single View dated 08/05/2022; Chest Single View dated 02/11/2022; Chest Single View dated 09/22/2021; Chest Single View dated 09/07/2020 FINDINGS: Lines: None. Lungs: No evidence of edema or pneumonia. Pleural: No significant pleural effusions or pneumothorax. Cardiac: The heart size is within normal limits. Mediastinum: Within normal limits. Bones: No acute fractures. Other: None IMPRESSION: No acute cardiopulmonary disease.
[2022-12-13 10:07] LABS: Absolute Lymphocytes (CBC) 2.1 K/uL (0.7-4.9); Hematocrit 36.3 % (36.0-45.0); Lymphocytes % 31.2 % (15.3-44.8); MPV 7.9 fL (7.6-11.3)
[2022-12-13 10:28] LABS: Albumin 3.3 g/dL (3.4-5.0); Bilirubin Direct 0.1 mg/dL (0-0.2); Bilirubin Total 0.3 mg/dL (0.2-1.0); Potassium 3.5 mEq/L (3.5-5.1); Protein, Total 6.7 g/dL (6.4-8.2); Troponin High Sensitivity 7.5 pg/mL (<58.9)
--- NOTE | 2022-12-13 11:01 | ER ---
Nurse's Notes [facility] Name: Katya Hinojosa Age: 72 yrs Sex: Female : 1950 Arrival Date: 12/13/2022 Time: 08:57 Bed 14 Private MD: Mike Zamudio Diagnosis: Headache;Chest pain, unspecified Presentation: 12/13 09:17 Chief complaint: Patient states: ULRICH, similar to previous HAs, since yesterday. CP, jl7 worse with movement. Coronavirus screen: At this time, the client does not indicate any symptoms associated with coronavirus-19. Ebola Screen: No symptoms or risks identified at this time. Initial Sepsis Screen: Does the patient meet any 2 criteria? No. Patient's initial sepsis screen is negative. Does the patient have a suspected source of infection? No. Patient's initial sepsis screen is negative. Risk Assessment: Do you want to hurt yourself or someone else? Patient reports no desire to harm self or others. Onset of symptoms was December 12, 2022. 09:17 Method Of Arrival: Ambulatory [facility] 09:17 Acuity: AMAYA 3 jl7 Triage Assessment: 09:18 General: Appears in no apparent distress. uncomfortable, Behavior is calm, cooperative, jl7 appropriate for age. Pain: Complains of pain in ULRICH and CP Pain currently is 8 out of 10 on a pain scale. Cardiovascular: Patient's skin is warm and dry. Historical: - Allergies: 09:18 No Known Drug Allergies; jl7 - Home Meds: 09:18 Metformin Oral [Active]; jl7 - PMHx: 09:18 Diabetes - NIDDM; High Cholesterol; Hypertension; Hypothyroidism; jl7 - Immunization history:: Adult Immunizations unknown. - Social history:: Smoking status: Patient denies any tobacco usage or history of. - Family history:: not pertinent. - Hospitalizations: : No recent hospitalization is reported. Screenin:20 [facility] ED Fall Risk Assessment (Adult) Score/Fall Risk Level 0 - 2 = Low Risk. Abuse eh3 screen: Denies threats or abuse. Denies injuries from another. Nutritional screening: No deficits noted. Tuberculosis screening: No symptoms or risk factors identified. Assessment: 09:20 General: Appears in no apparent distress. uncomfortable, Behavior is calm, cooperative, eh3 appropriate for age. Pain: Complains of pain in head and chest Pain does not radiate. Pain began 1 day ago. Neuro: Level of Consciousness is awake, alert, obeys commands, Oriented to person, place, time, situation. Cardiovascular: Capillary refill < 3 seconds Patient's skin is warm and dry. Respiratory: Airway is patent Respiratory effort is even, unlabored, Respiratory pattern is regular, symmetrical. GI: Abdomen is round non-distended. : No signs and/or symptoms were reported regarding the genitourinary system. EENT: No signs and/or symptoms were reported regarding the EENT system. Derm: Skin is pink, warm \T\ dry. Musculoskeletal: Circulation, motion, and sensation intact. 10:00 Reassessment: Patient appears in no apparent distress at this time. Patient and/or 3 family updated on plan of care and expected duration. Pain level reassessed. Patient is alert, oriented x 3, equal unlabored respirations, skin warm/dry/pink. 11:00 Reassessment: Patient appears in no apparent distress at this time. Patient and/or 3 family updated on plan of care and expected duration. Pain level reassessed. Patient is alert, oriented x 3, equal unlabored respirations, skin warm/dry/pink. Vital Signs: 09:17 BP 159 / 66; Pulse 65; Resp 17; Temp 98.5; Pulse Ox 100% ; Weight 88.45 kg; Height 5 jl7 ft. 5 in. ; Pain 8/10; 10:00 BP 122 / 53; Pulse 53; Resp 20; Pulse Ox 99% on R/A; eh3 11:00 BP 114 / 77; Pulse 53; Resp 20; Pulse Ox 98% on R/A; eh3 09:17 Body Mass Index 32.45 (88.45 kg, 165.1 cm) jl7 09:17 Pain Scale: Adult jl7 Vitals: 10:00 Cardiac Rhythm Assessment Sinus paul. eh3 ED Course: 09:00 Patient arrived in ED. mr 09:00 Mike Zamudio DO is Private Physician. mr 09:05 Simon Chen MD is Attending Physician. jl7 09:18 Triage completed. jl7 09:18 Arm band placed on right wrist. jl7 09:19 Lacie Rae, SEKOU is Primary Nurse. eh3 09:20 Patient has correct armband on for positive identification. Placed in gown. Bed in low eh3 position. Call light in reach. Side rails up X2. Client placed on continuous cardiac and pulse oximetry monitoring. NIBP monitoring applied. Door closed. Noise minimized. Lights dimmed. Warm blanket given. 09:20 Patient maintains SpO2 saturation greater than 95% on room air. eh3 09:27 CT Head Brain wo Cont In Process Unspecified. EDMS 09:37 XRAY Chest (1 view) In Process Unspecified. EDMS 09:50 Inserted saline lock: 20 gauge in left antecubital area, using aseptic technique. Blood eh3 collected. 10:01 Flu Sent. eh3 10:01 COVID-19 SARS RT PCR Sent. eh3 11:30 No provider procedures requiring assistance completed. IV discontinued, intact, eh3 bleeding controlled, No redness/swelling at site. Pressure dressing applied. Administered Medications: 09:50 Drug: Ondansetron IVP 4 mg Route: IVP; Site: left antecubital; eh3 11:30 Follow up: Response: No adverse reaction eh3 09:50 Drug: Famotidine IVP 20 mg Route: IVP; Site: left antecubital; eh3 11:30 Follow up: Response: No adverse reaction eh3 11:25 Drug: Ketorolac IVP 30 mg Route: IVP; Site: left antecubital; eh3 11:30 Follow up: Response: Medication administered at discharge. eh3 Medication: 11:30 VIS not applicable for this client. eh3 Outcome: 11:00 Discharge ordered by . rn 11:30 Discharged to home ambulatory. eh3 11:30 Condition: stable 11:30 Discharge instructions given to patient, Instructed on discharge instructions, follow up and referral plans. Demonstrated understanding of instructions, follow-up care. 11:31 Patient left the ED. eh3 Signatures: Dispatcher [employer] Zainab Ross Roman, MD MD rn Leal, Jahala, RN RN jlLacie Roberto RN RN eh3
--- NOTE | 2022-12-13 11:01 | EDPHYS ---
Physician Documentation [facility] Name: Katya Hinojosa Age: 72 yrs Sex: Female : 1950 Arrival Date: 12/13/2022 Time: 08:57 Bed 14 Private MD: Mike Zamudio ED Physician Simon Chen HPI: 12/13 10:41 This 72 yrs old Female presents to ER via Ambulatory with complaints of Chest rn Pain, Headache. 10:41 The patient or guardian reports chest pain that is located primarily in the substernal rn area. Onset: yesterday. The pain does not radiate. Associated signs and symptoms: Pertinent positives: headache, nausea, Pertinent negatives: abdominal pain, cough, diaphoresis, shortness of breath, syncope, vomiting. The chest pain is described as aching. Duration: The patient or guardian reports multiple episodes, that are intermittent. Modifying factors: The symptoms are alleviated by nothing. the symptoms are aggravated by movement. Severity of pain: At its worst the pain was mild in the emergency department the pain is unchanged. The patient has not experienced similar symptoms in the past. The patient has not recently seen a physician. Pt reports here for 2 reasons, headache primarily and chest pain secondarily. Both began yesterday. No injury. Does work with arms and lifting at work but doesn't recall moment of injury. Has had cardiac cath before but no stent 2-3 years ago. No fever. Doesn't feel ill. Reports most concerned of headache, which also began yesterday, no focal weakness or numbness or other focal neuro complaint. No abd pain. No cough or sob. . Historical: - Allergies: 09:18 No Known Drug Allergies; jl7 - Home Meds: 09:18 Metformin Oral [Active]; jl7 - PMHx: 09:18 Diabetes - NIDDM; High Cholesterol; Hypertension; Hypothyroidism; jl7 - Immunization history:: Adult Immunizations unknown. - Social history:: Smoking status: Patient denies any tobacco usage or history of. - Family history:: not pertinent. - Hospitalizations: : No recent hospitalization is reported. ROS: 10:41 Constitutional: Negative for fever, chills, and weight loss, Eyes: Negative for injury, rn pain, redness, and discharge, Cardiovascular: Negative for palpitations, and edema, Respiratory: Negative for shortness of breath, cough, wheezing Abdomen/GI: Negative for abdominal pain, vomiting, diarrhea, and constipation, MS/Extremity: Negative for injury and deformity, Skin: Negative for injury, rash, and discoloration, Neuro: Negative for weakness, numbness, tingling, and seizure. Exam: 10:03 ECG was reviewed by the Attending Physician. rn 10:41 Constitutional: This is a well developed, well nourished patient who is awake, alert, rn and in no acute distress. Head/Face: Normocephalic, atraumatic. Neck: Trachea midline, no thyromegaly or masses palpated, and no cervical lymphadenopathy. Supple, full range of motion without nuchal rigidity, or vertebral point tenderness. No Meningismus. Cardiovascular: Bradycardic, regular. No pulse deficits. Respiratory: No increased work of breathing, no retractions or nasal flaring. Abdomen/GI: Soft, non-tender Skin: Warm, dry MS/ Extremity: Pulses equal, no cyanosis. Neuro: Awake and alert, GCS 15, oriented to person, place, time, and situation. Motor strength 5/5 in all extremities. Sensory grossly intact. Vital Signs: 09:17 BP 159 / 66; Pulse 65; Resp 17; Temp 98.5; Pulse Ox 100% ; Weight 88.45 kg; Height 5 jl7 ft. 5 in. ; Pain 8/10; 10:00 BP 122 / 53; Pulse 53; Resp 20; Pulse Ox 99% on R/A; eh3 11:00 BP 114 / 77; Pulse 53; Resp 20; Pulse Ox 98% on R/A; eh3 09:17 Body Mass Index 32.45 (88.45 kg, 165.1 cm) jl7 09:17 Pain Scale: Adult jl7 MDM: 09:06 Patient medically screened. rn 10:58 Differential diagnosis: acute myocardial infarction, anxiety, coronary artery disease rn chest wall pain, costochondritis, gastritis, gastroesophageal reflux disease (GERD), pericarditis, pleurisy, pneumonia, pneumothorax, headache, migraine. Data reviewed: vital signs, nurses notes, lab test result(s), EKG, radiologic studies, CT scan, plain films, and as a result, I will discharge patient. Consideration of Admission/Observation Escalation of care including admission/observation considered. But further discussion with patient, in sing[place]an, she states headaches on and off for years and states chest pain intermittent since fall in June when she fell and thinks injured a rib. Trop neg. Ct head neg. Will dc home with return precautions and pcp f/u for further evaluation.. Independent interpretation of the following test(s) in the Emergency Department EKG: See my EKG interpretation above X-Ray: My interpretation is CXR images neg for fracture/pneumothorax per my interpretation. Counseling: I had a detailed discussion with the patient and/or guardian regarding: the historical points, exam findings, and any diagnostic results supporting the discharge/admit diagnosis, lab results, radiology results, the need for outpatient follow up, to return to the emergency department if symptoms worsen or persist or if there are any questions or concerns that arise at home. Response to treatment: the patient's symptoms have mildly improved after treatment, and as a result, I will discharge patient. Special discussion: I discussed with the patient/guardian in detail that at this point there is no indication for admission to the hospital. It is understood, however, that if the symptoms persist or worsen the patient needs to return immediately for re-evaluation. 12/13 09:16 Order name: Basic Metabolic Panel; Complete Time: 10:50 rn 12/13 09:16 Order name: CBC with Diff; Complete Time: 10:50 rn 12/13 09:16 Order name: LFT's; Complete Time: 10:50 rn 12/13 09:16 Order name: NT PRO-BNP; Complete Time: 10:50 rn 12/13 09:16 Order name: Troponin HS; Complete Time: 10:50 12/13 09:16 Order name: COVID-19 SARS RT PCR; Complete Time: 10:50 12/13 09:16 Order name: Flu; Complete Time: 10:50 rn 12/13 09:16 Order name: XRAY Chest (1 view); Complete Time: 10:00 12/13 09:16 Order name: CT Head Brain wo Cont; Complete Time: 10:00 12/13 09:16 Order name: EKG; Complete Time: 09:12/13 09:16 Order name: Cardiac monitoring; Complete Time: 10:12/13 09:16 Order name: EKG - Nurse/Tech; Complete Time: 10:12/13 09:16 Order name: IV Saline Lock; Complete Time: 10: rn 12/13 09:16 Order name: Labs collected and sent; Complete Time: : rn 12/13 09:16 Order name: O2 Per Protocol; Complete Time: rn 12/13 09:16 Order name: O2 Sat Monitoring; Complete Time: : EC:03 Rate is 53 beats/min. Rhythm is regular. Left axis deviation noted. QRS is positive in rn lead I and negative in lead aVF. AR interval is normal. QRS interval is normal. QT interval is normal. No Q waves. T waves are Inverted in leads III, aVF, V5, V6. No ST changes noted. Clinical impression: Sinus bradycardia. Reviewed by me. Administered Medications: 09:50 Drug: Ondansetron IVP 4 mg Route: IVP; Site: left antecubital; 3 11:30 Follow up: Response: No adverse reaction [facility] 09:50 Drug: Famotidine IVP 20 mg Route: IVP; Site: left antecubital; 3 11:30 Follow up: Response: No adverse reaction [facility] 11:25 Drug: Ketorolac IVP 30 mg Route: IVP; Site: left antecubital; 3 11:30 Follow up: Response: Medication administered at discharge. 3 Disposition Summary: 12/13/22 11:00 Discharge Ordered Location: Home rn Problem: new rn Symptoms: have improved rn Condition: Stable rn Diagnosis - Headache rn - Chest pain, unspecified rn Followup: rn - With: Private Physician - When: As needed - Reason: Recheck today's complaints, Re-evaluation by your physician Discharge Instructions: - Discharge Summary Sheet 3 Forms: - Medication Reconciliation Form rn - Thank You Letter rn - Antibiotic rn social work - Prescription Opioid Use rn - Work release form 3 Signatures: Dispatcher [employer] Simon Solorzano MD MD rn Leal, Jahala, RN RN Lacie Rouse RN RN 3
[2022-12-13] MEDS ORDERED: KETOROLAC 30 MG/ML INJ ONE (11:27)
[2022-12-13 11:44] VITALS: TEMP 98.5
[2022-12-13 11:56] VITALS: BP 114/77; O2SAT 98
--- NOTE | 2022-12-14 16:07 | EKG ---
Test Date: 2022-12-13 Test Time: 09:39:01 Farm[employer] General: LAMBERTO MEASUREMENT RESULTS: Intervals: Rate: 53 UT: 176 QRSD: 82 QT: 424 QTc: 397 [place]: P: 5 UT: 176 QRS: -16 T: -30 INTERPRETIVE STATEMENTS: Sinus bradycardia Otherwise normal ECG Compared to ECG 08/05/2022 17:17:14 Left ventricular hypertrophy no longer present Early repolarization no longer present Electronically Signed On 12-14-22 16:05:18 CDT by Tahir White
== END 2022-12-13 11:31 | disposition home or self-care (01) ==
LOC: ER 08:57
DX: R51.9 Headache, unspecified (principal); R07.89 Other chest pain; E11.9 Type 2 diabetes mellitus without complications; I10 Essential (primary) hypertension; Z20.822 Contact with and (suspected) exposure to COVID-19
CPT/HCPCS: 93005; 85025; 80048; 36415; 80076; 84484; 83880; 87804 ×2; 70450; 71045; 96375; 96374; 99285; U0003; J2405

== ENCOUNTER 2023-02-01 09:13 | Observation (INO) | payer OTHER ==
--- OUTSIDE RECORDS SUMMARY | 2023-02-01 09:23 | XMS REPORT | Continuity of Care Document ---
:1950 Author Organization [facility] t Address [address] [facility] [address] [place] [address] Care Team Providers Name Role Phone Mike Zamudio DO Primary Care Physician [phone] Mike Zamudio Attending Clinician Unavailable Duran Wylie MD Attending Clinician DURAN WYLIE Attending Clinician Unavailable Duran Wylie MD Attending Clinician DURAN WYLIE Attending Clinician Unavailable Sheila Rudd MD Attending Clinician Stan Garrido MD Attending Clinician RADIOLOGY Attending Clinician Unavailable Radiology Attending Clinician Unavailable Doctor Unassigned, [place] Attending Clinician Unavailable Be Silva MD Attending Clinician Only, Ang Db Test Attending Clinician Unavailable Krystle Carmichael Attending Clinician KRYSTLE FOWLER Attending Clinician Unavailable Elenita Humphreys MD Attending Clinician Saleem Louise MD Attending Clinician Lab, Ang - Db Attending Clinician Unavailable SALEEM LOUISE Attending Clinician Unavailable SALEEM LOUISE Attending Clinician Unavailable ALLEN MONSALVE Attending Clinician Unavailable Allen Monsalve DO Attending Clinician Mary NUMERICAL CONTROL TOOL PROGRAMMER, Willie B Attending Clinician Lab, Adc Fam Pob I Attending Clinician Unavailable DURAN WYLIE Admitting Clinician Unavailable DURAN WYLIE Admitting Clinician Unavailable JAVI SHANKS Admitting Clinician Unavailable PRINCE MELCHOR Admitting Clinician Unavailable ALLEN MONSALVE Admitting Clinician Unavailable Payers Payer Name Policy Type Policy Number Effective Date Expiration Date Ave vela Allclasses [id number] 2018spring 00:00:[address] [employer] C1 [id number] Common Sp maria ines ing Medicare - [facility] Problems Condition Condition Condition Status Onset Resolution Last Treating Co mments Source Name Details Category Date Date Treatment Clinician Date 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, carcinoma, 212 [facility] left left 00:00: Medicin e Renal mass Renal mass Disease Active [facility] 09-09 [facility] 00:00: [address] Dyslipidem Dyslipidem Disease Active 2015-08 U corina ia ia 2-06 ity of 00:00: [place] 00 [facility] Prediabete Prediabete Disease Active U corina s s 9- ity of 00:00: [place] 00 [facility] Dizzy Dizzy Disease Active 2014-08 Univers spells spells 2- ity of 00:00: [place] 00 [facility] Palpitatio Palpitatio Disease Active 2014-08 U corina ns ns 2-04 ity of 00:00: 00 Medical Branch Shortness Shortness Disease Active 2014-08 Uni vers of breath of breath 2-04 ity of 00:00: [place] 00 [facility] Branch Atypical Atypical Disease Active 2014-08 Unive rs chest pain chest pain 2-04 it y of 00:00: [place] 00 [facility] Postsurgic Postsurgic Disease Active 2014-08 U corina al al 2- ity of [place] 00 [facility] Branch No known No known Disease [facility] active active College problems problems of Medicin e [id number] Other Problem Common chronic Spirit pain - [facility] Disorder 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 [facility] [id number] History of Problem Co mmon diabetes Spirit mellitus - [facility] [id number] Essential Problem Comm on hypertensi Spirit on - [facility] [id number] Gastroesop Problem Co mmon hageal Spirit reflux - CHI disease [facility] esophagiti Medica s [place] [id number] Primary Problem Commo n osteoarthr Spirit itis, - CHI unspecifie [facility] Acquired Acquired Problem Commo n hypothyroi hypothyroi Sp maria ines dism dism - [facility] [id number] Encounter Problem Com mon for Spirit [facility]olog[facility] Center finding [id number] Body mass Problem Com mon index Spirit (BMI) - CHI 32.0-32.9, [facility] [id number] Other Problem Common obesity Spirit due to - [facility] excess 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 [facility] [id number] JENNY Problem Common (generaliz Spirit ed anxiety - CHI disorder) [facility] [id number] Mixed Problem Common hyperlipid Spirit emia - [facility] [id number] Constipati Problem Com mon on, Spirit unspecifie - [facility] [id number] Current Problem Common moderate Spirit episode of - CHI major [facility] Medical without Center prior episode Allergies, Adverse Reactions, Alerts Allergy Allergy Status Severity Reaction(s) Onset Inactive Treating Comm ents Source Name Type Date Date Clinician NO KNOWN Drug Active Univers ALLERGIE Class ity of [facility] NO KNOWN Allergy Active [facility] Social History Social Habit Start Date Stop Date Quantity Comments Source History of Common Spirit - Tobacco Use [facility] Alcohol intake 2022-10-20 2022-10-20 Lifetime [facility] Col lege 00:00:00 00:00:00 non-drinker of Medicine (finding) Exposure to 2022-09-17 2022-09-27 Not sure [facility] Colleg e SARS-CoV-2 00:00:00 11:32:00 of Medicine (event) Tobacco use and 2022-07-28 2022-07-28 Smokeless tobacco [employer] exposure 00:00:00 00:00:00 non-user of Medicine Sex Ass[birth year] [facility] 00:00:00 00:00:00 [facility] Center Smoking Status Start Date Stop Date Source Never smoked tobacco [facility] Chucho ege of Medicine Medications Ordered Filled [...] tablet 14:49: daily. Medica l 14 Center carvediloL 0 Yes 12.5mg Take 12.[address] (COREG) 1-28 mg by [facility]ukes 12.5 MG 14:49: mouth 2 Medical tablet 14 (two) Center times daily with breakfast and dinner. atorvastati 0 Yes 10mg QD Take [address] [facility] (LIPITOR) -28 by mouth Luke s 10 MG 14:49: daily. Medical tablet 14 [place] ondansetron 0 Yes 4mg Take [address] (ZOFRAN) 4 -28 by mouth 2 Melissa es MG tablet 14:49: (two) Medical 14 times Center daily as needed for Nausea. losartan 0 Yes 25mg QD Take [address] 12.5 MG -28 by mouth Lukes halftab 14:49: daily. Medical half tablet 14 [place] famotidine Yes 20mg Q.5D Take [address] (PEPCID) 20 1-28 by mouth 2 Cira kes MG tablet 14:49: (two) Medical 14 times Center daily. esomeprazol 0 Yes 40mg QD Take [address] [facility] (NexIUM) - by mouth Lukes 40 MG 14:49: daily. Medical capsule 14 [place] sertraline 0 Yes 50mg QD Take [address] (ZOLOFT) 50 -28 by mouth Luke s MG tablet 14:49: daily. Medica l 14 [place] metFORMIN 0 Yes 500mg Take 500 CHI [...] MG tablet 14:49: daily. Medica l 14 [place] carvediloL 2022-0 Yes 12.5mg Take 12.[address] (COREG) 1-28 mg by Lukes 12.5 MG 14:49: mouth 2 Medical tablet 14 (two) Center times daily with breakfast and dinner. atorvastati 2022-0 Yes 10mg QD Take [address] [facility] (LIPITOR) -28 by mouth Luke s 10 MG 14:49: daily. Medical tablet 14 [place] ondansetron 0 Yes 4mg Take [address] (ZOFRAN) 4 -28 by mouth 2 Melissa es MG tablet 14:49: (two) Medical 14 times Center daily as needed for Nausea. losartan 0 Yes 25mg QD Take [address] 12.5 MG -28 by mouth Lukes halftab 14:49: daily. Medical half tablet 14 [place] famotidine 0 Yes 20mg Q.5D Take [address] (PEPCID) 20 -28 by mouth 2 Cira kes MG tablet 14:49: (two) Medical 14 times Center daily. esomeprazol 0 Yes 40mg QD Take [address] [facility] (NexIUM) -28 by mouth Lukes 40 MG 14:49: daily. Medical capsule 14 [place] sertraline 0 Yes 50mg QD Take [address] (ZOLOFT) 50 -28 by mouth Luke s MG tablet 14:49: daily. Medica l 14 [place] metFORMIN 0 Yes 500mg Take [address] (GLUCOPHAGE 1-28 mg by Lukes ) 500 MG 14:49: mouth 2 Medica l tablet 14 (two) Center times daily with breakfast and dinner. levothyroxi 2022-0 Yes 125ug Take [address] ne 1-28 mcg by Lukes (SYNTHROID, 14:49: mouth Medic al LEVOTHROID) 14 Every Center 125 MCG morning on tablet an empty stomach. amLODIPine 0 Yes 5mg QD Take [address] (NORVASC) 5 1-28 by mouth Luke s MG tablet 14:49: daily. Medica l 14 [place] carvediloL 0 Yes 12.5mg Take 12.[address] (COREG) 1-28 mg by Lukes 12.5 MG 14:49: mouth 2 Medical tablet 14 (two) Center times daily with breakfast and dinner. atorvastati Yes 10mg QD Take [address] [facility] (LIPITOR) 1-28 by mouth Luke s 10 MG 14:49: daily. Medical tablet 14 Center ondansetron Yes 4mg Take [address] (ZOFRAN) 4 1-28 by mouth 2 Melissa es MG tablet 14:49: (two) Medical 14 times Center daily as needed for Nausea. losartan Yes 25mg QD Take [address] 12.5 MG 1-28 by mouth [facility]ukes halftab 14:49: daily. Medical half tablet 14 Center famotidine Yes 20mg Q.5D Take [address] (PEPCID) 20 1-28 by mouth 2 Cira kes MG tablet 14:49: (two) Medical 14 times Center daily. esomeprazol Yes 40mg QD Take [address] [facility] (NexIUM) 09-11 by mouth [facility]ukes 40 MG 14:49: daily. Medical capsule 14 Center sertraline Yes 50mg QD Take [address] (ZOLOFT) 50 -28 by mouth Luke s MG tablet 14:49: daily. Medica l 14 [place] metFORMIN 0 Yes 500mg Take 500 CHI [...] tablet 14:49: daily. Medica l 14 Center carvediloL Yes 12.5mg Take 12.[address] (COREG) 1-28 mg by Lukes 12.5 MG 14:49: mouth 2 Medical tablet 14 (two) Center times daily with breakfast and dinner. atorvastati 0 Yes 10mg QD Take [address] [facility] (LIPITOR) 09-11 by mouth Luke s 10 MG 14:49: daily. Medical tablet 14 Center ondansetron 0 Yes 4mg Take [address] (ZOFRAN) 4 - by mouth 2 Melissa es MG tablet 14:49: (two) Medical 14 times Center daily as needed for Nausea. losartan 0 Yes 25mg QD Take [address] 12.5 MG - by mouth Lukes halftab 14:49: daily. Medical half tablet 14 Center metformin 0 Yes 500mg Take 500 [facility] h[facility]ctor (GLUCOPHAGE 1-28 mg by Adelino ) 500 MG 00:00: mouth. of tablet 00 Medicin e losartan 0 Yes 25mg Take 25 mg [facility]ades héctor (COZAAR) 25 - by mouth Chucho ege MG tablet 00:00: daily. of 00 Medicin e levothyroxi 0 Yes 125ug Take 125 B aylor ne 1-28 mcg by Adelino (SYNTHROID) 00:00: mouth. of 125 MCG 00 Medicin tablet e metformin 0 Yes 500mg Take 1 [facility] (GLUCOPHAGE 1-28 Tablet by Col lege ) 500 MG 00:00: mouth. of tablet 00 Medicin e losartan 0 Yes 25mg Take 1 [facility] (COZAAR) 25 1-28 Tablet by Col lege MG tablet 00:00: mouth of 00 daily. Medicin e levothyroxi 0 Yes 125ug Take 1 [facility]ades héctor ne 1-28 Tablet by Adelino (SYNTHROID) 00:00: mouth. of 125 MCG 00 Medicin tablet e atorvastati Yes 10mg Take 1 [facility] (LIPITOR) -28 Tablet by Col lege 10 MG 00:00: mouth of tablet 00 daily. Medicin e acetaminoph 2022-2022- No 1{tbl} Take [address] en-codeine - 02-07 tablet by Melissa es (Tylenol-Co 00:00: 23:59 mouth Medi tito deine #3) 00 :00 every 6 Center 300-30 mg (six) per tablet hours as needed for Pain for up to 10 days. Max Daily Amount: 4 tablets docusate 3-0 2023- No 100mg Take 1 CHI S t sodium 09-11 capsule Lukes (COLACE) 00:00: 23:59 (100 mg Medic al 100 MG 00 :00 total) by Center capsule mouth daily as needed for up to 10 days. methocarbam 2022-0 3- No 500mg Q.[id number] Take [address] oL 09-11 [id number] tablet Lukes (ROBAXIN) 00:00: 23:59 3D (500 mg Medi tito 500 MG 00 :00 total) by Center tablet mouth 3 (three) times daily for 10 days. acetaminoph 2022-0 2022- No 1{tbl} Take [address] en-codeine 09-11 tablet by Melissa es (Tylenol-Co 00:00: 23:59 mouth Medi tito deine #3) 00 :00 every 6 Center 300-30 mg (six) per tablet hours as needed for Pain for up to 10 days. Max Daily Amount: 4 tablets docusate 3-0 3- No 100mg Take 1 CHI S t sodium 09-11 capsule [facility]ukes (COLACE) 00:00: 23:59 (100 mg Medic al 100 MG 00 :00 total) by Center capsule mouth daily as needed for up to 10 days. methocarbam 2022-0 2022- No 500mg Q.[id number] Take [address] oL 09-11 [id number] tablet [facility] (ROBAXIN) 00:00: 23:59 3D (500 mg Medi tito 500 MG 00 :00 total) by Center tablet mouth 3 (three) times daily for 10 days. acetaminoph 2022-0 2022- No 1{tbl} Take [address] en-codeine 09-11- tablet by Melissa es (Tylenol-Co 00:00: 23:59 mouth Medi tito deine #3) 00 :00 every 6 Center 300-30 mg (six) per tablet hours as needed for Pain for up to 10 days. Max Daily Amount: 4 tablets docusate 2023-0 2023- No 100mg Take 1 CHI S t sodium 09-11- capsule [facility] (COLACE) 00:00: 23:59 (100 mg Medic al 100 MG 00 :00 total) by Center capsule mouth daily as needed for up to 10 days. methocarbam 2022- No 500mg Q.[id number] Take [address] oL 09-11 [id number] tablet [facility] (ROBAXIN) 00:00: 23:59 3D (500 mg Medi tito 500 MG 00 :00 total) by Center tablet mouth 3 (three) times daily for 10 days. acetaminoph 2022- No 1{tbl} Take [address] en-codeine 09-11 tablet by Melissa es (Tylenol-Co 00:00: 23:59 mouth Medi tito deine #3) 00 :00 every 6 Center 300-30 mg (six) per tablet hours as needed for Pain for up to 10 days. Max Daily Amount: 4 tablets docusate No 100mg Take 1 [facility]I S t sodium 09-11 capsule [facility] (COLACE) 00:00: 23:59 (100 mg Medic al 100 MG 00 :00 total) by Center capsule mouth daily as needed for up to 10 days. methocarbam No 500mg Q.[id number] Take [address] oL 09-11 [id number] tablet [facility] (ROBAXIN) 00:00: 23:59 3D (500 mg Medi tito 500 MG 00 :00 total) by Center tablet mouth 3 (three) times daily for 10 days. No known 2021-08 No No known [facility] medications 2- medication Co llege 12:48: s of 10 Medicin e gadobenate 2021-08- No [id number] .2mL/kg 0.2 mL/kg, Univers dimeglumine 08-16 Intravenou i ty of (MULTIHANCE 22:45: 22:43 s, ONCE, 1 [place] -20 mL) 00 :00 dose, On Medical injection Wed Branch 0.2 mL/kg 06/16/22 at 1745, Routine iopamidol 2021-08- No [id number] 74mL 74 mL, U nivers (ISOVUE 05-15 Intravenou ity o f 370-500 mL) 15:15: 14:27 s, ONCE, 1 [place] injection 00 :00 dose, On Medica l 74 mL Sat Branch 05/15/22 at 1015, Routine Pseudoeph-B Pseudoeph-B 2022- No 5{ml_as QID Pseudoeph- romphen-DM romphen-DM 03-08 _needed Bromphen-D 30-2-10 30-2-10 00:00: 00:00 } M 30-2-10 MG/5ML MG/5ML 00 :00 MG/5ML Pseudoeph-B Pseudoeph-B 2021- No 5{ml_as QID Pseudoeph- romphen-DM romphen-DM 03-08 _needed Bromphen-D 30-2-10 302-10 00:00: 00:00 } M 30-2-10 MG/5ML MG/5ML 00 :00 MG/5ML esomeprazol 0 Yes 40mg Take 40 mg Asim e (NEXIUM) 7-18 by mouth Colle ge 40 MG 00:00: daily. of capsule 00 Medicin e esomeprazol Yes 40mg Take 1 [facility] (NEXIUM) 7-18 capsule by Col lege 40 MG 00:00: mouth of capsule 00 daily. Medicin e amitriptyli Yes 25mg Take 1 [facility] (ELAVIL) 3-24 Tablet by Col lege 25 MG 00:00: mouth at of [facility] 00 bedtime. Medicin e amitriptyli Yes [id number] 25mg Take 1 Univers ne 25 mg 3-24 tablet by ity of tablet 00:00: mouth at [place] 00 bedtime. Medical Branch amitriptyli Yes [id number] 25mg Take 1 Univers ne 25 mg 3-24 tablet by ity of tablet 00:00: mouth at [place] 00 bedtime. Medical Branch amitriptyli Yes [id number] 25mg Take 1 Univers ne 25 mg 3-24 tablet by ity of tablet 00:00: mouth at [place] 00 bedtime. Medical Branch amitriptyli Yes [id number] 25mg Take 1 Univers ne 25 mg 3-24 tablet by ity of tablet 00:00: mouth at [place] [address] bedtime. Medical Branch amitriptyli 2021-0 Yes [id number] 25mg Take 1 Univers ne 25 mg 3-24 tablet by ity of tablet 00:00: mouth at [place] [address] bedtime. Medical Branch amitriptyli 2021-0 Yes [id number] 25mg Take 1 Univers ne 25 mg 3-24 tablet by ity of tablet 00:00: mouth at [place] [address] bedtime. Medical Branch amitriptyli 2021-0 Yes [id number] 25mg Take 1 Univers ne 25 mg 3-24 tablet by ity of tablet 00:00: mouth at [place] [address] bedtime. Medical Branch amitriptyli 2021-0 Yes [id number] 25mg Take 1 Univers ne 25 mg 3-24 tablet by ity of tablet 00:00: mouth at [place] [address] bedtime. Medical Branch amitriptyli 2021-0 Yes [id number] 25mg Take 1 Univers ne 25 mg 3-24 tablet by ity of tablet 00:00: mouth at [place] [address] bedtime. Medical Branch amitriptyli 2021-0 Yes [id number] 25mg Take 1 Univers ne 25 mg 3-24 tablet by ity of tablet 00:00: mouth at [place] [address] bedtime. Medical Branch amitriptyli 2021-0 Yes [id number] 25mg Take 1 Univers ne 25 mg 3-24 tablet by ity of tablet 00:00: mouth at [place] [address] bedtime. Medical Branch amitriptyli 2021-0 Yes [id number] 25mg Take 1 Univers ne 25 mg 3-24 tablet by ity of tablet 00:00: mouth at [place] [address] bedtime. Medical Branch amLODIPine 2021-0 Yes Univers 10 mg 3-21 ity of tablet 00:00: [place] 00 Medical Branch amLODIPine 2-0 Yes Univers 10 mg 3-21 ity of tablet 00:00: [place] 00 Medical Branch amLODIPine 2-0 Yes Univers 10 mg 3-21 ity of tablet 00:00: [place] 00 Medical Branch amLODIPine 2-0 Yes Univers 10 mg 3-21 ity of tablet 00:00: [place] 00 Medical Branch amLODIPine 2-0 Yes Univers 10 mg 3-21 ity of tablet 00:00: [place] 00 Medical Branch amLODIPine 2022-0 Yes Univers 10 mg 3-21 ity of tablet 00:00: [place] [facility] amLODIPine 2022-0 Yes Univers 10 mg 3-21 ity of tablet 00:00: [place] [facility] amLODIPine 2022-0 Yes Univers 10 mg 3-21 ity of tablet 00:00: [place] [facility] amLODIPine 2022-0 Yes Univers 10 mg 3-21 ity of tablet 00:00: [place] [facility] amLODIPine 2022-0 Yes Univers 10 mg 3-21 ity of tablet 00:00: [place] [facility] amLODIPine 2022-0 Yes Univers 10 mg 3-21 ity of tablet 00:00: [place] [facility] amLODIPine 2022-0 Yes Univers 10 mg 3-21 ity of tablet 00:00: [place] [facility] amLODIPine 2022-0 Yes Univers 10 mg 3-21 ity of tablet 00:00: [place] [facility] ondansetron 2022-0 Yes 4mg Take 4 mg U nivers 4 mg tablet 3-14 by mouth 2 it y of 00:00: (two) [place] 00 times Medical daily as Branch needed. ondansetron 2022-0 Yes 4mg Take 4 mg U nivers 4 mg tablet 3-14 by mouth 2 it y of 00:00: (two) [place] 00 times Medical daily as Branch needed. ondansetron 2022-0 Yes 4mg Take 4 mg U nivers 4 mg tablet 3-14 by mouth 2 it y of 00:00: (two) [place] 00 times Medical daily as Branch needed. ondansetron 2022-0 Yes 4mg Take 4 mg U nivers 4 mg tablet 3-14 by mouth 2 it y of 00:00: (two) [place] 00 times Medical daily as Branch needed. ondansetron 2022-0 Yes 4mg Take 4 mg U nivers 4 mg tablet 3-14 by mouth 2 it y of 00:00: (two) [place] 00 times Medical daily as Branch needed. ondansetron 2022-0 Yes 4mg Take 4 mg U nivers 4 mg tablet 3-14 by mouth 2 it y of 00:00: (two) [place] 00 times Medical daily as Branch needed. [...] times Medical daily as Branch needed. losartan-hy 2021-0 Yes 1{tbl} Take 1 Un hitesh drochloroth 2-20 tablet by ity of iazide 00:00: mouth [place] 100-12.5 mg 00 daily. Medica l per tablet Branch losartan-hy 2-0 Yes 1{tbl} Take 1 Un hitesh drochloroth 2-20 tablet by ity of iazide 00:00: mouth [place] 100-12.5 mg 00 daily. Medica l per tablet Branch losartan-hy 2-0 Yes 1{tbl} Take 1 Un hitesh drochloroth [...] by mouth ity of tablet 00:00: daily. [place] 00 Medical Branch SERTraline 2-0 Yes 50mg Take 50 mg U nivers 50 mg 2-14 by mouth ity of tablet 00:00: daily. [place] [facility] Branch SERTraline 2-0 Yes 50mg Take 50 mg U nivers 50 mg 2-14 by mouth ity of tablet 00:00: daily. [place] [facility] SERTraline 2-0 Yes 50mg Take 50 mg U nivers 50 mg 2-14 by mouth ity of tablet 00:00: daily. [place] [facility] SERTraline 2-0 Yes 50mg Take 50 mg U nivers 50 mg 2-14 by mouth ity of tablet 00:00: daily. [place] [facility] SERTraline 2-0 Yes 50mg Take 50 mg U nivers 50 mg 2-14 by mouth ity of tablet 00:00: daily. [place] [facility] SERTraline 2-0 Yes 50mg Take 50 mg U nivers 50 mg 2-14 by mouth ity of tablet 00:00: daily. [place] [facility] SERTraline 2-0 Yes 50mg Take 50 mg U nivers 50 mg 2-14 by mouth ity of tablet 00:00: daily. [place] [facility] SERTraline 2-0 Yes 50mg Take 50 mg U nivers 50 mg 2-14 by mouth ity of tablet 00:00: daily. [place] [facility] SERTraline 2-0 Yes 50mg Take 50 mg U nivers 50 mg 2-14 by mouth ity of tablet 00:00: daily. [address] SERTraline 2-0 Yes 50mg Take 50 mg U nivers 50 mg 2-14 by mouth ity of tablet 00:00: daily. [address] SERTraline 2-0 Yes 50mg Take 50 mg U nivers 50 mg 2-14 by mouth ity of tablet 00:00: daily. [address] SERTraline 2-0 Yes 50mg Take 50 mg U nivers 50 mg 2-14 by mouth ity of tablet 00:00: daily. [address] Synthroid Synthroid 2021-0 No QD 125 MCG 125 MCG 2-03 00:00: 00 Synthroid Synthroid 2-0 No QD 125 MCG 125 MCG 2-03 00:00: 00 Synthroid Synthroid 2022-0 No QD Synthroid 125 MCG 125 MCG 2-03 125 MCG 00:00: 00 Synthroid Synthroid 0 No QD Synthroid 125 MCG 125 MCG 2-03 125 MCG 00:00: 00 Synthroid Synthroid No QD Synthroid 125 MCG 125 MCG 2-03 125 MCG 00:00: 00 carvedilol 2020-08 Yes 12.5mg Take 12.5 [facility] (COREG) 2-21 mg by Adelino 12.5 MG 00:00: mouth. of tablet 00 Medicin e carvedilol 2020-08 Yes 12.5mg Take 1 [facility] (COREG) 2-21 Tablet by Adelino 12.5 MG 00:00: mouth. of tablet 00 Medicin e amlodipine 2020-08 Yes 5mg Take 5 mg [facility] (NORVASC) 5 2-07 by mouth [facility]ucho ege MG tablet 00:00: daily. of Medicin e amlodipine 2020-08 Yes 5mg Take [...] pirit e) e) 00:00: - [facility]I 00 [facility] Rocephin Rocephin 2020-0 No 1g Commo n (Ceftriaxon (Ceftriaxon 8-20 S pirit e) e) 00:00: - [facility]I 00 [facility] Rocephin Rocephin 2020-0 No 1g Commo n (Ceftriaxon (Ceftriaxon 8-20 S pirit e) e) 00:00: - CHI 00 [facility] Rocephin Rocephin 2020-0 No 1g Commo n (Ceftriaxon (Ceftriaxon 8-20 S pirit e) e) 00:00: - CHI 00 [facility] Rocephin Rocephin 2020-0 No 1g Commo n (Ceftriaxon (Ceftriaxon 8-20 S pirit e) e) 00:00: - CHI 00 [facility] Rocephin Rocephin 2020-0 No 1g Commo n (Ceftriaxon (Ceftriaxon 8-20 S pirit e) e) 00:00: - CHI 00 [facility] Rocephin Rocephin 2020-0 No 1g Commo n (Ceftriaxon (Ceftriaxon 8-20 S pirit e) e) 00:00: - CHI 00 [facility] Rocephin Rocephin 2020-0 No 1g Commo n (Ceftriaxon (Ceftriaxon 8-20 S pirit e) e) 00:00: - CHI 00 [facility] Rocephin Rocephin 2020-0 No 1g Commo n (Ceftriaxon (Ceftriaxon 8-20 S pirit e) e) 00:00: - CHI 00 [facility] Rocephin Rocephin 2020-0 No 1g Commo n (Ceftriaxon (Ceftriaxon 8-20 S pirit e) e) 00:00: - CHI 00 [facility] Rocephin Rocephin 2020-0 No 1g Commo n (Ceftriaxon (Ceftriaxon 8-20 S pirit e) e) 00:00: - CHI 00 [facility] Rocephin Rocephin 2020-0 No 1g Commo n (Ceftriaxon (Ceftriaxon 8-20 S pirit e) e) 00:00: - CHI 00 [facility] Rocephin Rocephin 2020-0 No 1g Commo n (Ceftriaxon (Ceftriaxon 8-20 S pirit e) e) 00:00: - [facility]I 00 [facility] Rocephin Rocephin 2020-0 No 1g Commo n (Ceftriaxon (Ceftriaxon 8-20 S pirit e) e) 00:00: - [facility]I 00 [facility] Rocephin Rocephin 2020-0 No 1g Commo n (Ceftriaxon (Ceftriaxon 8-20 S pirit e) e) 00:00: - CHI 00 [facility] Ondansetron Ondansetron 2019-0 Yes Mike 1 tablet Common HCl HCl 7-24 Zamudio Spirit 00:00: - [facility] Jardiance Jardiance 2019-0 Yes Mike 1 tablet Common 7-24 Zamudio Spirit 00:00: - [facility] 00 [facility] MetFORMIN MetFORMIN 2019-0 Yes Mike 2 tablets Common HCl ER HCl ER 7-14 Zamudio with meal Spiri t 00:00: - [facility] 00 [facility] Tradjenta Tradjenta 2019-0 Yes Mike 1 tablet Common 7-14 [facility] 00:00: - [facility] Restasis Restasis Yes Mike 1 drop C ommon 5-28 Zamudio into Spirit 00:00: affected - [facility] 00 eye as [facility] Restasis Restasis No 1{drop_ BID Restasis 0.05 % 0.05 % 5-28 into_af 0.05 % 00:00: fected_ 00 eye_as_ needed} Restasis Restasis No 1{drop_ BID Restasis 0.05 % 0.05 % 5-28 into_af 0.05 % 00:00: fected_ 00 eye_as_ needed} Restasis Restasis No 1{drop_ BID Restasis 0.05 % 0.05 % 5-28 into_af 0.05 % 00:00: fected_ 00 eye_as_ needed} Restasis Restasis 0 No 1{drop_ BID Restasis 0.05 % 0.05 % 5-28 into_af 0.05 % 00:00: fected_ 00 eye_as_ needed} Nystatin Nystatin Yes Mike 1 Com mon 03-20 Zamudio applicatio Spirit 00:00: n to - [facility] 00 affected [facility] Nystatin Nystatin No 1{appli BID Nystatin 386170 [id number] 03-20 cation_ [id number] UNIT/GM UNIT/GM 00:00: to_affe UNIT/GM 00 cted_ar ea} Nystatin Nystatin 2018- No 1{appli BID Nystatin 739965 747711 8-06 cation_ 452682 UNIT/GM UNIT/GM 00:00: to_affe UNIT/GM 00 cted_ar ea} Nystatin Nystatin 2019- No 1{appli BID Nystatin 985426 544038 8-06 cation_ 346810 UNIT/GM UNIT/GM 00:00: to_affe UNIT/GM 00 cted_ar ea} Nystatin Nystatin No 1{appli BID Nystatin 835940 384028 8-06 cation_ 027559 UNIT/GM UNIT/GM 00:00: to_affe UNIT/GM 00 cted_ar ea} omeprazole Yes [id number] 40mg Take 2 [facility] 20 mg 2-13 tablets by ity of tablet 00:00: mouth [place] 00 daily. Medical Branch ondansetron Yes [id number] 4mg Take 1 Univers (ZOFRAN 2-13 tablet by ity of ODT) 4 mg 00:00: mouth [place] disintegrat 00 every 8 Medic al ing tablet (eight) Branch hours as needed for Nausea and Vomiting (N/V). omeprazole Yes [id number] 40mg Take 2 [facility] 20 mg 2-13 tablets by ity of tablet 00:00: mouth [place] 00 daily. Medical Branch ondansetron Yes [id number] 4mg Take 1 [facility] (ZOFRAN 2-13 tablet by ity of ODT) 4 mg 00:00: mouth [place] disintegrat 00 every 8 Medic al ing tablet (eight) Branch hours as needed for Nausea and Vomiting (N/V). omeprazole Yes [id number] 40mg Take 2 [facility] 20 mg 2-13 tablets by ity of tablet 00:00: mouth [place] 00 daily. Medical Branch ondansetron 0 Yes [id number] 4mg Take 1 [facility] (ZOFRAN 2-13 tablet by ity of ODT) 4 mg 00:00: mouth [place] disintegrat 00 every 8 Medic al ing tablet (eight) Branch hours as needed for Nausea and Vomiting (N/V). omeprazole 2018-0 Yes [id number] 40mg Take 2 [facility] 20 mg 2-13 tablets by ity of tablet 00:00: mouth [place] 00 daily. Medical Branch ondansetron 2019-0 Yes [id number] 4mg Take 1 Univers (ZOFRAN 2-13 tablet by ity of ODT) 4 mg 00:00: mouth [place] disintegrat 00 every 8 Medic al ing tablet (eight) Branch hours as needed for Nausea and Vomiting (N/V). omeprazole 2019-0 Yes [id number] 40mg Take 2 [facility] 20 mg 2-13 tablets by ity of tablet 00:00: mouth [place] 00 daily. Medical Branch ondansetron 2019-0 Yes [id number] 4mg Take 1 Univers (ZOFRAN 2-13 tablet by ity of ODT) 4 mg 00:00: mouth [place] disintegrat 00 every 8 Medic al ing tablet (eight) Branch hours as needed for Nausea and Vomiting (N/V). omeprazole 2019-0 Yes [id number] 40mg Take 2 [facility] 20 mg 2-13 tablets by ity of tablet 00:00: mouth [place] 00 daily. Medical Branch ondansetron 2019-0 Yes [id number] 4mg Take 1 Univers (ZOFRAN 2-13 tablet by ity of ODT) 4 mg 00:00: mouth [place] disintegrat 00 every 8 Medic al ing tablet (eight) Branch hours as needed for Nausea and Vomiting (N/V). omeprazole 2019-0 Yes [id number] 40mg Take 2 Univers 20 mg 2-13 tablets by ity of tablet 00:00: mouth [place] 00 daily. Medical Branch ondansetron 2019-0 Yes [id number] 4mg Take 1 Univers (ZOFRAN 2-13 tablet by ity of ODT) 4 mg 00:00: mouth [place] disintegrat 00 every 8 Medic al ing tablet (eight) Branch hours as needed for Nausea and Vomiting (N/V). omeprazole 2019-0 Yes [id number] 40mg Take 2 [facility] 20 mg 2-13 tablets by ity of tablet 00:00: mouth [place] 00 daily. Medical Branch ondansetron 2019-0 Yes [id number] 4mg Take 1 Univers (ZOFRAN 2-13 tablet by ity of ODT) 4 mg 00:00: mouth [place] disintegrat 00 every 8 Medic al ing tablet (eight) Branch hours as needed for Nausea and Vomiting (N/V). omeprazole 2019-0 Yes [id number] 40mg Take 2 [facility] 20 mg 2-13 tablets by ity of tablet 00:00: mouth [place] 00 daily. Medical Branch ondansetron 2019-0 Yes [id number] 4mg Take 1 Univers (ZOFRAN 2-13 tablet by ity of ODT) 4 mg 00:00: mouth [place] disintegrat 00 every 8 Medic al ing tablet (eight) Branch hours as needed for Nausea and Vomiting (N/V). omeprazole 2019-0 Yes [id number] 40mg Take 2 [facility] 20 mg 2-13 tablets by ity of tablet 00:00: mouth [place] 00 daily. Medical Branch ondansetron 2019-0 Yes [id number] 4mg Take 1 Univers (ZOFRAN 2-13 tablet by ity of ODT) 4 mg 00:00: mouth [place] disintegrat 00 every 8 Medic al ing tablet (eight) Branch hours as needed for Nausea and Vomiting (N/V). omeprazole 2019-0 Yes [id number] 40mg Take 2 [facility] 20 mg 2-13 tablets by ity of tablet 00:00: mouth [place] 00 daily. Medical Branch ondansetron 2019-0 Yes [id number] 4mg Take 1 Univers (ZOFRAN 2-13 tablet by ity of ODT) 4 mg 00:00: mouth [place] disintegrat 00 every 8 Medic al ing tablet (eight) Branch hours as needed for Nausea and Vomiting (N/V). omeprazole 2019-0 Yes [id number] 40mg Take 2 [facility] 20 mg 2-13 tablets by ity of tablet 00:00: mouth [place] 00 daily. Medical Branch ondansetron 2019-0 Yes [id number] 4mg Take 1 Univers (ZOFRAN 2-13 tablet by ity of ODT) 4 mg 00:00: mouth [place] disintegrat 00 every 8 Medic al ing tablet (eight) Branch hours as needed for Nausea and Vomiting (N/V). omeprazole 2019-0 Yes [id number] 40mg Take 2 [facility] 20 mg 2-13 tablets by ity of tablet 00:00: mouth [place] 00 daily. Medical Branch ondansetron 2019-0 Yes [id number] 4mg Take 1 Univers (ZOFRAN 2-13 tablet by ity of ODT) 4 mg 00:00: mouth [place] disintegrat 00 every 8 Medic al ing tablet (eight) Branch hours as needed for Nausea and Vomiting (N/V). omeprazole Yes [id number] 40mg Take 2 [facility] 20 mg 2-13 tablets by ity of tablet 00:00: mouth [place] 00 daily. Medical Branch ondansetron Yes [id number] 4mg Take 1 Univers (ZOFRAN 2-13 tablet by ity of ODT) 4 mg 00:00: mouth [place] disintegrat 00 every 8 Medic al ing tablet (eight) Branch hours as needed for Nausea and Vomiting (N/V). Diclofenac Yes [id number] Take 2-4 Univers Sodium 8-16 grams ity of (VOLTAREN) 00:00: three [place] 1 % gel 00 times a Medical day as Branch needed for pain levothyroxi Yes [id number] 100ug Take 1 Univers ne 100 mcg 8-16 tablet by ity of tablet 00:00: mouth [place] 00 every Medical morning. Branch lisinopril Yes [id number] 10mg Take 1 U nivers 10 mg 8-16 tablet by ity of tablet 00:00: mouth [place] 00 daily. Medical Branch Diclofenac Yes [id number] Take 2-4 Univers Sodium 8-16 grams ity of (VOLTAREN) 00:00: three [place] 1 % gel 00 times a Medical day as Branch needed for pain levothyroxi Yes [id number] 100ug Take 1 Univers ne 100 mcg 8-16 tablet by ity of tablet 00:00: mouth [place] 00 every Medical morning. Branch lisinopril Yes [id number] 10mg Take 1 U nivers 10 mg 8-16 tablet by ity of tablet 00:00: mouth [place] 00 daily. Medical Branch Diclofenac Yes [id number] Take 2-4 Univers Sodium 8-16 grams ity of (VOLTAREN) 00:00: three [place] 1 % gel 00 times a Medical day as Branch needed for pain levothyroxi Yes [id number] 100ug Take 1 Univers ne 100 mcg 8-16 tablet by ity of tablet 00:00: mouth [place] 00 every Medical morning. Branch lisinopril Yes [id number] 10mg Take 1 U nivers 10 mg 8-16 tablet by ity of tablet 00:00: mouth [place] 00 daily. Medical Branch Diclofenac Yes [id number] Take 2-4 Univers Sodium 8-16 grams ity of (VOLTAREN) 00:00: three [place] 1 % gel 00 times a Medical day as Branch needed for pain levothyroxi Yes [id number] 100ug Take 1 Univers ne 100 mcg 8-16 tablet by ity of tablet 00:00: mouth [place] 00 every Medical morning. Branch lisinopril Yes [id number] 10mg Take 1 U nivers 10 mg 8-16 tablet by ity of tablet 00:00: mouth [place] 00 daily. Medical Branch Diclofenac Yes [id number] Take 2-4 Univers Sodium 8-16 grams ity of (VOLTAREN) 00:00: three [place] 1 % gel 00 times a Medical day as Branch needed for pain levothyroxi Yes [id number] 100ug Take 1 Univers ne 100 mcg 8-16 tablet by ity of tablet 00:00: mouth [place] 00 every Medical morning. Branch lisinopril Yes [id number] 10mg Take 1 U nivers 10 mg 8-16 tablet by ity of tablet 00:00: mouth [place] 00 daily. Medical Branch Diclofenac Yes [id number] Take 2-4 Univers Sodium 8-16 grams ity of (VOLTAREN) 00:00: three [place] 1 % gel 00 times a Medical day as Branch needed for pain levothyroxi Yes [id number] 100ug Take 1 Univers ne 100 mcg 8-16 tablet by ity of tablet 00:00: mouth [place] 00 every Medical morning. Branch lisinopril Yes [id number] 10mg Take 1 U nivers 10 mg 8-16 tablet by ity of tablet 00:00: mouth [place] 00 daily. Medical Branch Diclofenac Yes [id number] Take 2-4 Univers Sodium 8-16 grams ity of (VOLTAREN) 00:00: three [place] 1 % gel 00 times a Medical day as Branch needed for pain levothyroxi Yes [id number] 100ug Take 1 Univers ne 100 mcg 8-16 tablet by ity of tablet 00:00: mouth [place] 00 every Medical morning. Branch lisinopril Yes [id number] 10mg Take 1 U nivers 10 mg 8-16 tablet by ity of tablet 00:00: mouth [place] 00 daily. Medical Branch Diclofenac Yes [id number] Take 2-4 Univers Sodium 8-16 grams ity of (VOLTAREN) 00:00: three [place] 1 % gel 00 times a Medical day as Branch needed for pain levothyroxi Yes [id number] 100ug Take 1 Univers ne 100 mcg 8-16 tablet by ity of tablet 00:00: mouth [place] 00 every Medical morning. Branch lisinopril Yes [id number] 10mg Take 1 U nivers 10 mg 8-16 tablet by ity of tablet 00:00: mouth [place] 00 daily. Medical Branch Diclofenac Yes [id number] Take 2-4 Univers Sodium 8-16 grams ity of (VOLTAREN) 00:00: three [place] 1 % gel 00 times a Medical day as Branch needed for pain levothyroxi Yes [id number] 100ug Take 1 Univers ne 100 mcg 8-16 tablet by ity of tablet 00:00: mouth [place] 00 every Medical morning. Branch lisinopril Yes [id number] 10mg Take 1 U nivers 10 mg 8-16 tablet by ity of tablet 00:00: mouth [place] 00 daily. Medical Branch Diclofenac Yes [id number] Take 2-4 Univers Sodium 8-16 grams ity of (VOLTAREN) 00:00: three [place] 1 % gel 00 times a Medical day as Branch needed for pain levothyroxi Yes [id number] 100ug Take 1 Univers ne 100 mcg 8-16 tablet by ity of tablet 00:00: mouth [place] 00 every Medical morning. Branch lisinopril Yes [id number] 10mg Take 1 U nivers 10 mg 8-16 tablet by ity of tablet 00:00: mouth [place] 00 daily. Medical Branch Diclofenac Yes [id number] Take 2-4 Univers Sodium 8-16 grams ity of (VOLTAREN) 00:00: three [place] 1 % gel 00 times a Medical day as Branch needed for pain levothyroxi Yes [id number] 100ug Take 1 Univers ne 100 mcg 8-16 tablet by ity of tablet 00:00: mouth [place] 00 every Medical morning. Branch lisinopril Yes [id number] 10mg Take 1 U nivers 10 mg 8-16 tablet by ity of tablet 00:00: mouth [place] 00 daily. Medical Branch Diclofenac Yes [id number] Take 2-4 Univers Sodium 8-16 grams ity of (VOLTAREN) 00:00: three [place] 1 % gel 00 times a Medical day as Branch needed for pain levothyroxi Yes [id number] 100ug Take 1 Univers ne 100 mcg 8-16 tablet by ity of tablet 00:00: mouth [place] 00 every Medical morning. Branch lisinopril Yes [id number] 10mg Take 1 U nivers 10 mg 8-16 tablet by ity of tablet 00:00: mouth [place] 00 daily. Medical Branch Diclofenac Yes [id number] Take 2-4 Univers Sodium 8-16 grams ity of (VOLTAREN) 00:00: three [place] 1 % gel 00 times a Medical day as Branch needed for pain levothyroxi Yes [id number] 100ug Take 1 Univers ne 100 mcg 8-16 tablet by ity of tablet 00:00: mouth [place] 00 every Medical morning. Branch lisinopril Yes [id number] 10mg Take 1 U nivers 10 mg 8-16 tablet by ity of tablet 00:00: mouth [place] 00 daily. Medical Branch Diclofenac Yes [id number] Take 2-4 Univers Sodium 8-16 grams ity of (VOLTAREN) 00:00: three [place] 1 % gel 00 times a Medical day as Branch needed for pain levothyroxi Yes [id number] 100ug Take 1 Univers ne 100 mcg 8-16 tablet by ity of tablet 00:00: mouth [place] 00 every Medical morning. Branch lisinopril Yes [id number] 10mg Take 1 U nivers 10 mg 8-16 tablet by ity of tablet 00:00: mouth [place] 00 daily. Medical Branch atorvastati Yes [id number] 20mg Take 1 Univers n 20 mg 1-17 tablet by ity of tablet 00:00: mouth at [place] 00 bedtime. Medical Branch atorvastati Yes [id number] 20mg Take 1 Univers n 20 mg 1-17 tablet by ity of tablet 00:00: mouth at [place] 00 bedtime. Medical Branch atorvastati Yes [id number] 20mg Take 1 Univers n 20 mg 1-17 tablet by ity of tablet 00:00: mouth at [place] 00 bedtime. Medical Branch atorvastati 2017-0 Yes [id number] 20mg Take 1 Univers n 20 mg 1-17 tablet by ity of tablet 00:00: mouth at [place] 00 bedtime. Medical Branch atorvasta 2016-0 Yes [id number] 20mg Take 1 Univers n 20 mg 1-17 tablet by ity of tablet 00:00: mouth at [place] 00 bedtime. Medical Branch atorvasta 2016-0 Yes [id number] 20mg Take 1 Univers n 20 mg 1-17 tablet by ity of tablet 00:00: mouth at [place] 00 bedtime. Medical Branch atorvasta 0 Yes [id number] 20mg Take 1 [facility] n 20 mg 1-17 tablet by ity of tablet 00:00: mouth at [place] [address] bedtime. Medical Branch atorvasta 0 Yes [id number] 20mg Take 1 Univers n 20 mg 1-17 tablet by ity of tablet 00:00: mouth at [place] 00 bedtime. Medical Branch atorvasta 0 Yes [id number] 20mg Take 1 Univers n 20 mg 1-17 tablet by ity of tablet 00:00: mouth at [place] [address] bedtime. Medical Branch atorvasta 0 Yes [id number] 20mg Take 1 Univers n 20 mg 1-17 tablet by ity of tablet 00:00: mouth at [place] [address] bedtime. Medical Branch atorvasta 0 Yes [id number] 20mg Take 1 Univers n 20 mg 1-17 tablet by ity of tablet 00:00: mouth at [place] [address] bedtime. Medical Branch atorvasta 2016-0 Yes [id number] 20mg Take 1 Univers n 20 mg 1-17 tablet by ity of tablet 00:00: mouth at [place] [address] bedtime. Medical Branch atorvasta 0 Yes [id number] 20mg Take 1 Univers n 20 mg 1-17 tablet by ity of tablet 00:00: mouth at [place] [address] bedtime. Medical Branch atorvasta 0 Yes [id number] 20mg Take 1 Univers n 20 mg 1-17 tablet by ity of tablet 00:00: mouth at [place] [address] bedtime. Medical Branch PriLOSEC PriLOSEC No 1{table QD PriLOSEC OTC [...] 5 MG t_with_ ER 5 MG food} Lipitor Lipitor Yes Mike 1 tablet Com mon [facility] Lisinopril Lisinopril Yes Mike 1 tablet Common [facility] Prilosec Prilosec Yes Mike 1 tablet C ommon OTC OTC [facility] Levothyroxi Levothyroxi Yes Mike 1 tablet Common ne Sodium ne Sodium Zamudio on an Spi rit empty - [facility] stomach in [facility] metFORMIN metFORMIN No BID metFORMIN [...] Sodium 100 MCG 100 MCG 100 MCG Immunizations Ordered Filled Immunization Date Status Comments Sourc e Immunization Name Name FLUZONE HIGH DOSE FLUZONE HIGH DOSE 2022-06-24 [facility]pleted [facility] - OVER [facility] OVER 65 13:44:00 [facility] FLUZONE HIGH DOSE FLUZONE HIGH DOSE 2022-06-24 Completed [facility] - OVER 65 OVER 65 13:44:00 [facility] FLUZONE HIGH DOSE FLUZONE HIGH DOSE 2022-06-24 Completed [facility] - OVER 65 OVER 65 13:44:00 [facility] FLUZONE HIGH DOSE FLUZONE HIGH DOSE 2022-06-24 Completed [facility] - OVER 65 OVER 65 13:44:00 [facility] FLUZONE HIGH DOSE FLUZONE HIGH DOSE 2022-06-24 Completed [facility] - OVER 65 OVER 65 13:44:00 [facility] Td 2021-04-21 Completed [facility] 00:[facility] [facility] Td 2021-04-21 Completed University of 00:00:[address] [facility] Td 2021-04-21 Completed [facility] of 00:00:[address] [facility] Td 2021-04-21 Completed University of 00:00:[address] [facility] Td 2021-04-21 Completed University of 00:00:[address] [facility] Td 2021-04-21 Completed University of 00:00:[address] [facility] Td 2021-04-21 Completed University of 00:00:[address] [facility] Td 2021-04-21 Completed [facility] of 00[facility]00:[address] [facility] Td 2021-04-21 Completed University of 00[facility]00:[address] [facility] Td 2021-04-21 Completed University of 00:00:[address] [facility] Td 2021-04-21 Completed University of 00:00:[address] [facility] Td 2021-04-21 Completed University of 00:00:[address] [facility] Td 2021-04-21 Completed University of 00:00:[address] [facility] TD, NOS 2021-04-21 Completed [facility] of 00:00:[address] [facility] Vital Signs Vital Name Observation Time Observation Value Comments Source Systolic blood 2022-10-20 19:52:00 137 mm[Hg] [facility] Diastolic blood 2022-10-20 19:52:00 80 mm[Hg] [facility] pressure Medicine Heart rate 2022-10-20 19:52:00 72 /min [facility] Body height 2022-10-20 19:52:00 165.1 cm [facility] Body weight 2022-10-20 19:52:00 89.812 kg [facility] BMI 2022-10-20 19:52:00 32.95 kg/m2 [facility] Systolic blood 2022-09-27 17:58:00 131 mm[Hg] [facility] pressure Medicine Diastolic blood 2022-09-27 17:58:00 78 mm[Hg] [facility] Medicine Heart rate 2022-09-27 17:58:00 78 /min [facility] HEIGHT 2022-09-09 10:00:00 165.1 cm WEIGHT 2022-09-09 10:00:00 87.454 kg HEIGHT 2022-09-09 10:00:00 165.1 cm WEIGHT 2022-09-09 10:00:00 87.454 kg HEIGHT 2022-09-09 10:00:00 165.1 cm WEIGHT 2022-09-09 10:00:00 87.454 kg Systolic blood 2022-07-28 20:41:00 121 mm[Hg] [facility] Medicine Diastolic blood 2022-07-28 20:41:00 65 mm[Hg] [facility] Medicine Heart rate 2022-07-28 20:41:00 62 /min [facility] Body temperature 2022-07-28 20:41:00 37 [facility] Body height 2022-07-28 20:41:00 165.1 cm [facility] Body weight 2022-07-28 20:41:00 90.266 kg [facility] BMI 2022-07-28 20:41:00 33.12 kg/m2 [facility] height 2022-06-24 08:00:00 65 [in_i] [facility] weight 2022-06-24 08:00:00 199.8 [lb_av] [facility] temperature 2022-06-24 08:00:00 97.3 [degF] [facility] bmi 2022-06-24 08:00:00 33.24 kg/m2 [facility] oximetry 2022-06-24 08:00:00 99 % [facility] respiratory rate 2022-06-24 08:00:00 18 /min Comm on [facility] blood pressure 2022-06-24 08:00:00 145 mm[Hg] [facility] - systolic [facility] blood pressure 2022-06-24 08:00:00 72 mm[Hg] [facility] - diastolic [facility] height 2022-06-04 11:30:00 65 [in_i] [facility] weight 2022-06-04 11:30:00 200.6 [lb_av] [facility] temperature 2022-06-04 11:30:00 97.6 [degF] [facility] bmi 2022-06-04 11:30:00 33.38 kg/m2 [facility] oximetry 2022-06-04 11:30:00 99 % Common [facility] respiratory rate 2022-06-04 11:30:00 18 /min Comm on [facility] blood pressure 2022-06-04 11:30:00 184 mm[Hg] [facility] - systolic [facility] blood pressure 2022-06-04 11:30:00 77 mm[Hg] [facility] - diastolic [facility] height 2022-03-23 16:30:00 65 [in_i] [facility] weight 2022-03-23 16:30:00 198.6 [lb_av] Common [facility] temperature 2022-03-23 16:30:00 98.0 [degF] [facility] bmi 2022-03-23 16:30:00 33.05 kg/m2 [facility] oximetry 2022-03-23 16:30:00 94 % [facility] respiratory rate 2022-03-23 16:30:00 16 /min Comm on [facility] blood pressure 2022-03-23 16:30:00 125 mm[Hg] [facility] - systolic [facility] blood pressure 2022-03-23 16:30:00 59 mm[Hg] [facility] diastolic [facility] height 2022-03-08 09:40:00 65 [in_i] [facility] weight 2022-03-08 09:40:00 199.4 [lb_av] [facility] bmi 2022-03-08 09:40:00 33.18 kg/m2 [facility] Systolic blood 2021-11-03 18:21:00 112 mm[Hg] [facility] Diastolic blood 2021-11-03 18:21:00 65 mm[Hg] [facility] Heart rate 2021-11-03 18:21:00 62 /min [facility] Body height 2021-11-03 18:21:00 162.6 cm [facility] Body weight 2021-11-03 18:21:00 91.627 kg [facility] BMI 2021-11-03 18:21:00 34.67 kg/m2 [facility] acute hospital Oxygen saturation in 2021-11-03 18:21:00 98 /min [facility] by [facility] Pulse oximetry Branch height 2021-10-26 16:10:00 65 [in_i] [facility] weight 2021-10-26 16:10:00 199.4 [lb_av] [facility] temperature 2021-10-26 16:10:00 97.2 [degF] [facility] bmi 2021-10-26 16:10:00 33.18 kg/m2 [facility] oximetry 2021-10-26 16:10:00 98 % [facility] respiratory rate 2021-10-26 16:10:00 17 /min Comm on [facility] blood pressure 2021-10-26 16:10:00 138 mm[Hg] [facility] - systolic [facility] blood pressure 2021-10-26 16:10:00 75 mm[Hg] [facility] - diastolic [facility] height 2021-09-28 16:20:00 65 [in_i] [facility] weight 2021-09-28 16:20:00 204.6 [lb_av] [facility] temperature 2021-09-28 16:20:00 97.7 [degF] Common [facility] bmi 2021-09-28 16:20:00 34.04 kg/m2 [facility] oximetry 2021-09-28 16:20:00 97 % Common [facility] respiratory rate 2021-09-28 16:20:00 17 /min Comm on [facility] blood pressure 2021-09-28 16:20:00 142 mm[Hg] [facility] - systolic [facility] blood pressure 2021-09-28 16:20:00 78 mm[Hg] [facility] - diastolic [facility] height 2021-09-15 15:30:00 65 [in_i] [facility] weight 2021-09-15 15:30:00 201.1 [lb_av] Common [facility] temperature 2021-09-15 15:30:00 97.5 [degF] [facility] bmi 2021-09-15 15:30:00 33.46 kg/m2 [facility] oximetry 2021-09-15 15:30:00 97 % [facility] respiratory rate 2021-09-15 15:30:00 17 /min Comm on [facility] blood pressure 2021-09-15 15:30:00 137 mm[Hg] [facility] - systolic [facility] blood pressure 2021-09-15 15:30:00 76 mm[Hg] [facility] - diastolic [facility] height 2021-09-15 16:00:00 65 [in_i] Common [facility] weight 2021-09-15 16:00:00 201.1 [lb_av] Common [facility] temperature 2021-09-15 16:00:00 97.5 [degF] Common [facility] bmi 2021-09-15 16:00:00 33.46 kg/m2 [facility] oximetry 2021-09-15 16:00:00 97 % [facility] respiratory rate 2021-09-15 16:00:00 17 /min Comm on [facility] blood pressure 2021-09-15 16:00:00 137 mm[Hg] [facility] - systolic [facility] blood pressure 2021-09-15 16:00:00 76 mm[Hg] [facility] - diastolic [facility] height 2021-07-21 10:10:00 65 [in_i] Common [facility] weight 2021-07-21 10:10:00 200.0 [lb_av] Common [facility] temperature 2021-07-21 10:10:00 97.4 [degF] Common [facility] bmi 2021-07-21 10:10:00 33.28 kg/m2 [facility] oximetry 2021-07-21 10:10:00 97 % [facility] respiratory rate 2021-07-21 10:10:00 17 /min Comm on [facility] blood pressure 2021-07-21 10:10:00 149 mm[Hg] [facility] blood pressure 2021-07-21 10:10:00 87 mm[Hg] [facility] Heart rate 2022-09-11 11:06:33 61 /min [facility] Body temperature 2022-09-11 11:06:33 36.61 Magdalena [facility] Oxygen saturation in 2022-09-11 11:06:33 100 /min [facility] Arterial blood by Medical Ce nter Pulse oximetry Systolic blood 2022-09-11 11:05:00 117 mm[Hg] [facility] Diastolic blood 2022-09-11 11:05:00 49 mm[Hg] [facility] Respiratory rate 2022-09-11 03:36:14 18 /min [facility] Body height 2022-09-09 10:00:00 165.1 cm [facility] Body weight 2022-09-09 10:00:00 87.454 kg [facility] BMI 2022-09-09 10:00:00 32.08 kg/m2 [facility] Procedures Procedure Date / Time Performing Clinician Source Performed BASIC METABOLIC PANEL 2022-09-27 12:11:11 [facility] CBC W/AUTO DIFF WITH 2022-09-27 12:11:11 [facility] BASIC METABOLIC PANEL 2022-09-11 05:21:00 Christopher Chaudhary [facility] CBC W/PLT COUNT & AUTO 2022-09-11 05:21:00 Kusum [facility] DIFFERENTIAL [place] CBC W/PLT COUNT & AUTO 2022-09-11 05:21:00 Kusum [facility] CBC W/PLT COUNT & AUTO 2022-09-10 21:53:00 Kusum [facility] CBC W/PLT COUNT & AUTO 2022-09-10 21:53:00 Kusum [facility] POCT-GLUCOSE METER 2022-09-10 16:05:00 Duran Wylie [facility] POCT-GLUCOSE METER 2022-09-10 11:51:00 Duran Wylie [facility] POCT-GLUCOSE METER 2022-09-10 08:12:00 Link, Duran [facility] BASIC METABOLIC PANEL 2022-09-10 05:07:00 Christopher Chaudhary [facility] HEMOGLOBIN AND 2022-09-10 05:07:00 Christopher Chaudhary [facility] HEMATOCRIT [place] POCT-GLUCOSE METER 2022-09-09 19:22:00 Clif [facility] HEMOGLOBIN AND 2022-09-09 18:47:00 Christopher Chaudhary [facility] HEMATOCRIT [place] BASIC METABOLIC PANEL 2022-09-09 18:47:00 Christopher Chaudhary [facility] TISSUE EXAM 2022-09-09 17:13:00 Clif [facility] TISSUE EXAM 2022-09-09 17:13:00 Clif [facility] ROBOTIC 2022-09-09 13:28:00 Clif [facility] LAPAROSCOPY,NEPHRECTOMY Center -PARTIAL PROCEDURE W/ DAVINCI XI 2022-09-09 13:28:00 Clif [facility] PREPARE RBC 2022-09-09 12:24:00 Clif [facility] ROBOTIC 2022-09-09 12:00:00 Clif [facility] LAPAROSCOPY,NEPHRECTOMY Center -PARTIAL PROCEDURE W/ DAVINCI XI 2022-09-09 12:00:00 Clif [facility] ECG 12-LEAD 2022-09-09 11:31:37 Unknown, Hl7 [facility] ECG 12-LEAD 2022-09-09 11:31:37 Stan Garrido [facility] ECG 12-LEAD 2022-09-09 11:31:37 Unknown, Hl7 Doctor [facility] ABORH, MANUAL 2022-09-09 11:27:00 Karina Barajas [facility] POCT-GLUCOSE METER 2022-09-09 11:20:00 Clif [facility] TYPE AND SCREEN, 2022-09-09 11:09:00 Cha Dacosta [facility] Center XR CHEST 2 VW 2022-08-17 14:11:39 Requisition, Paper [facility] Medical Branch ASSIGNMENT OF BENEFITS 2022-06-16 21:17:35 Doctor Unassigned, No [facility] Name Medical Branch HB CREATININE 2022-05-15 14:20:00 Radiology [facility] SERUM/BLOOD FOR IMAGING Medical Branch DEXA AXIAL (HIP AND 2021-11-18 21:13:26 Requisition, Paper [facility] SPINE) Medical Branch CONSENT/REFUSAL FOR 2021-11-18 20:29:45 Doctor Unassigned, No Un [facility] DIAGNOSIS AND TREATMENT Name Medical Branch ASSIGNMENT OF BENEFITS 2021-11-18 20:29:31 Doctor Unassigned, No [facility] Name Medical Branch REFERRAL- 2021-10-27 05:01:00 Doctor Unassigned, No [facility] REQUEST/RESPONSE Name Medical Branch Plan of Care Planned Activity Planned Date Details Comments Source Future Scheduled 2023-04-[address] [facility] Test 00:00:00 (Season Ended) [code Medical Center = Influenza Vaccine (Season Ended)] Future Scheduled 2023-04-[address] [facility] Test 00:00:00 (Season Ended) [code Medical Center = INFLUENZA VACCINE (Season Ended)] Future Scheduled 2023-03-27 CT ABDOMEN PELVIS W Expected: [facility] Test 00:00:00 WO CONTRAST [code = 03/27/2023, of Medic ine 10854-9] Expires: 09/27/2023 Future Scheduled 2023-03-27 XR CHEST PA AND Expected: [facility] Test 00:00:00 LATERAL [code = 03/27/2023, of Medicine 48179-7] Expires: 09/27/2023 Future Scheduled 2022-10-20 Screening for [facility] Test 15:32:57 malignant neoplasm of Medici ne of colon (procedure) [code = 186470454] Future Scheduled 2022-10-20 BMI Follow Up Plan [facility] r [facility] Test 15:32:57 [code = BMI Follow of Medici ne Up Plan] Future Scheduled 2022-10-20 Hepatitis C [facility] [employer] Test 15:32:57 screening of Medicine (procedure) [code = 176035307] Future Scheduled 2022-10-20 ZOSTER VACCINE (1 of [facility] Test 15:32:57 2) [code = ZOSTER of Medicin e VACCINE (1 of 2)] Future Scheduled 2022-10-20 Screening for [facility] [employer] Test 15:32:57 osteoporosis of Medicine (procedure) [code = 142725604] Future Scheduled 2022-10-20 Pneumococcal 65+ (1 [employer] Test 15:32:57 - PCV) [code = of Medicine Pneumococcal 65+ (1 - PCV)] Future Scheduled 2022-10-20 Screening for [facility] Test 15:32:57 malignant neoplasm of Medici ne of breast (procedure) [code = 196983017] Future Scheduled 2022-10-20 COVID-19 Vaccine (2 [employer] Test 15:32:57 - Pfizer series) of Medicine [code = COVID-19 Vaccine (2 - Pfizer series)] Future Scheduled 2022-10-20 FLU VACCINE > 6 [facility] [employer] Test 15:32:57 MONTHS [code = FLU of Medici ne VACCINE > 6 MONTHS] Future Scheduled 2022-10-20 Fall Screen [code = [employer] Test 15:32:57 Fall Screen] of Medicine Future Scheduled 2022-10-20 TETANUS SHOT (ADULT) [facility] [employer] Test 15:32:57 [code = TETANUS SHOT of Medi cine (ADULT)] Future Scheduled 2022-09-27 Screening for [facility] Test 12:11:19 malignant neoplasm of Medici ne of colon (procedure) [code = 811214389] Future Scheduled 2022-09-27 BMI Follow Up Plan [employer] Test 12:11:19 [code = BMI Follow of Medici ne Up Plan] Future Scheduled 2022-09-27 Hepatitis C [facility] [employer] Test 12:11:19 screening of Medicine (procedure) [code = 678350185] Future Scheduled 2022-09-27 ZOSTER VACCINE (1 of [employer] Test 12:11:19 2) [code = ZOSTER of Medicin e VACCINE (1 of 2)] Future Scheduled 2022-09-27 Screening for [facility] [employer] Test 12:11:19 osteoporosis of Medicine (procedure) [code = 585478128] Future Scheduled 2022-09-27 Pneumococcal 65+ (1 [employer] Test 12:11:19 - PCV) [code = of Medicine Pneumococcal 65+ (1 - PCV)] Future Scheduled 2022-09-27 Screening for [facility] Test 12:11:19 malignant neoplasm of Medici ne of breast (procedure) [code = 257593678] Future Scheduled 2022-09-27 COVID-19 Vaccine (2 [employer] Test 12:11:19 - Pfizer series) of Medicine [code = COVID-19 Vaccine (2 - Pfizer series)] Future Scheduled 2022-09-27 FLU VACCINE > 6 [facility] Test 12:11:19 MONTHS [code = FLU of Medici ne VACCINE > 6 MONTHS] Future Scheduled 2022-09-27 Medicare Awv [facility] [employer] Test 12:11:19 (Initial) [code = of Medicin e Medicare Awv (Initial)] Future Scheduled 2022-09-27 Fall Screen [code = [employer] Test 12:11:19 Fall Screen] of Medicine Future Scheduled 2022-09-27 TETANUS SHOT (ADULT) [employer] Test 12:11:19 [code = TETANUS SHOT of Medi cine (ADULT)] Future Scheduled 2022-09-27 BASIC METABOLIC Ordered: [facility] [employer] Test 12:11:11 PANEL [code = 09/27/2022 of Medicine 47527-1] Future Scheduled 2022-09-27 CBC W/AUTO DIFF WITH Ordered: [employer] Test 12:11:11 PLATELETS [code = 09/27/2022 of Medicin e 81554-1] Future Scheduled 2022-08-[address] [...] TO MEDICARE)] Future Scheduled 2022-08-04 Screening for [facility] Test 12:48:05 malignant neoplasm of Medici ne of colon (procedure) [code = 401096896] Future Scheduled 2022-08-04 BMI FOLLOW UP PLAN [facility] Test 12:48:05 [code = BMI FOLLOW of Medici ne UP PLAN] Future Scheduled 2022-08-04 Hepatitis C [facility] [employer] Test 12:48:05 screening of Medicine (procedure) [code = 524582993] Future Scheduled 2022-08-04 ZOSTER VACCINE (1 of [facility] Test 12:48:05 2) [code = ZOSTER of Medicin e VACCINE (1 of 2)] Future Scheduled 2022-08-04 FALL SCREEN [code = [employer] Test 12:48:05 FALL SCREEN] of Medicine Future Scheduled 2022-08-04 Screening for [facility] Test 12:48:05 osteoporosis of Medicine (procedure) [code = 034137958] Future Scheduled 2022-08-04 Pneumococcal 65+ (1 [employer] Test 12:48:05 - PCV) [code = of Medicine Pneumococcal 65+ (1 - PCV)] Future Scheduled 2022-08-04 Screening for [facility] Test 12:48:05 malignant neoplasm of Medici ne of breast (procedure) [code = 611873346] Future Scheduled 2022-08-04 COVID-19 Vaccine (2 [employer] Test 12:48:05 - Pfizer series) of Medicine [code = COVID-19 Vaccine (2 - Pfizer series)] Future Scheduled 2022-08-04 FLU VACCINE > 6 [facility] Test 12:48:05 MONTHS [code = FLU of Medici ne VACCINE > 6 MONTHS] Future Scheduled 2022-08-04 TETANUS SHOT (ADULT) [facility] Test 12:48:05 [code = TETANUS SHOT of Medi cine (ADULT)] Future Scheduled 2022-07-28 MRI ABDOMEN W WO 1 Occurrences [facility] Test 15:27:30 CONTRAST [code = starting of Medicine 84333-7] 07/28/2022 until 07/28/2023 Future Scheduled 2022-07-28 XR CHEST PA AND 1 Occurrences [facility] Test 15:27:30 LATERAL [code = starting of Medicine 37873-2] 07/28/2022 until 07/28/2023 Future Scheduled 2022-04-15 INFLUENZA [...] [facility] Test 00:[facility]:00 of 2) [code = [facility] SHINGLES VACCINES (1 of 2)] Future [facility] (#1) [code = [facility] COVID-19 VACCINE (#1)] Future Scheduled 1951 COVID-[address] [facility] Test 00:00:00 (#1) [code = [facility] COVID-19 VACCINE (#1)] Future Scheduled 1951 COVID-[address] [facility] Test 00:00:00 (#1) [code = [facility] COVID-19 VACCINE (#1)] Future Scheduled 1951 COVID-[address] [facility] Test 00:00:00 (#1) [code = [facility] COVID-19 VACCINE (#1)] Future Scheduled 1951 COVID-[address] [facility] Test 00:00:00 (#1) [code = [facility] COVID-19 VACCINE (#1)] Future Scheduled [address] [facility] Test 00:00:00 malignant neoplasm Medical C enter of breast (procedure) [code = 271931641] Future Scheduled [address] [facility] Test 00:00:00 (combo) [code = CT Medical C enter Colonography (combo)] Future Scheduled [address] [facility] Test 00:00:00 malignant neoplasm Medical C enter of colon (procedure) [code = 681437434] Future Scheduled [address] [facility] Test 00:00:00 malignant neoplasm Medical C enter of colon (procedure) [code = 633782502] Future Scheduled 1951 DXA SCAN [code = DXA [facility] Test 00:00:00 SCAN] [facility] Future Scheduled [address] [facility] Test 00:00:00 malignant neoplasm Medical C enter of colon (procedure) [code = 372458946] Future Scheduled [address] [facility] Test 00:00:00 malignant neoplasm Medical C enter of colon (procedure) [code = 436446306] Future Scheduled 1950 Sigmoidoscopy [code [facility] Test 00:00:00 = Sigmoidoscopy] [facility] Future Scheduled [address] [facility] Test 00:00:00 malignant neoplasm Medical C enter of colon (procedure) [code = 264562018] Future Scheduled [address] [facility] Test 00:00:00 malignant neoplasm Medical C enter of colon (procedure) [code = 894546918] Future Scheduled [address] [facility] Test 00:00:00 malignant neoplasm Medical C enter of breast (procedure) [code = 638189536] Future Scheduled 1950 Sigmoidoscopy [code [facility] Test 00:00:00 = Sigmoidoscopy] [facility] Future Scheduled [address] [facility] Test 00:00:00 (combo) [code = CT Medical C enter Colonography (combo)] Future Scheduled [address] Test 00:00:00 malignant neoplasm Medical C enter of colon (procedure) [code = 264733980] Future Scheduled [address] [facility] Test 00:00:00 malignant neoplasm Medical C enter of colon (procedure) [code = 311711180] Future Scheduled 1951 DXA SCAN [code = DXA [facility] Test 00:00:00 SCAN] [facility] Future Scheduled [address] [facility] Test 00:00:00 malignant neoplasm Medical C enter of colon (procedure) [code = 352672820] Future Scheduled [address] Test 00:00:00 malignant neoplasm Medical C enter of colon (procedure) [code = 535509301] Future Scheduled 1951 Sigmoidoscopy [code [facility] Test 00:00:00 = Sigmoidoscopy] [facility] Future Scheduled [address] [facility] Test 00:00:00 malignant neoplasm Medical C enter of breast (procedure) [code = 254048412] Future Scheduled [address] [facility] Test 00:00:00 (combo) [code = CT Medical C enter Colonography (combo)] Future Scheduled [address] [facility] Test 00:00:00 malignant neoplasm Medical C enter of colon (procedure) [code = 998194043] Future Scheduled [address] Test 00:00:00 malignant neoplasm Medical C enter of colon (procedure) [code = 483635447] Future Scheduled 1951 DXA SCAN [code = DXA [facility] Test 00:00:00 SCAN] [facility] Future Scheduled [address] [facility] Test 00:00:00 malignant neoplasm Medical C enter of colon (procedure) [code = 370414842] Future Scheduled [address] Test 00:00:00 malignant neoplasm Medical C enter of colon (procedure) [code = 322569083] Future Scheduled 1951 Sigmoidoscopy [code [facility] Test 00:00:00 = Sigmoidoscopy] [facility] Future Scheduled [address] [facility] Test 00:00:00 malignant neoplasm Medical C enter of breast (procedure) [code = 145565944] Future Scheduled [address] [facility] Test 00:00:00 (combo) [code = CT Medical C enter Colonography (combo)] Future Scheduled [address] Test 00:00:00 malignant neoplasm Medical C enter of colon (procedure) [code = 396783743] Future Scheduled [address] [facility] Test 00:00:00 malignant neoplasm Medical C enter of colon (procedure) [code = 850512668] Future Scheduled [address] [facility] Test 00:00:00 malignant neoplasm Medical C enter of breast (procedure) [code = 912815950] Future Scheduled [address] [facility] Test 00:00:00 (combo) [code = CT Medical C enter Colonography (combo)] Future Scheduled [address] [facility] Test 00:00:00 malignant neoplasm Medical C enter of colon (procedure) [code = 510456770] Future Scheduled [address] [facility] Test 00:00:00 malignant neoplasm Medical C enter of colon (procedure) [code = 787232588] Future Scheduled 1951 DXA SCAN [code = DXA [facility] Test 00:00:00 SCAN] Medical Center Future Scheduled [address] Test 00:00:00 malignant neoplasm Medical C enter of colon (procedure) [code = 845630284] Future Scheduled [address] Test 00:00:00 malignant neoplasm Medical C enter of colon (procedure) [code = 262039062] Future Scheduled 1951 Sigmoidoscopy [code [facility] Test 00:00:00 = Sigmoidoscopy] [facility] Future Scheduled 1951 DXA SCAN [code = DXA [facility] Test 00:00:00 SCAN] [facility] Encounters Start End Encounter Admission Attending Care Care Encounter Source Date/Time Date/Time Type Type Clinicians Facility Department ID 2022-06-22 Outpatient Zamudio, STLMLC [facility] [id number] Common 14:44:00 Mike [id number] [facility] 2021-10-26 Outpatient Zamudio, STLMLC [facility] [id number] Common 16:11:00 Mike [facility] 2021-09-14 Outpatient Zamudio, STLMLC [facility] [id number] Common 11:09:01 Mike [facility] 2021-09-09 Outpatient Zamudio, STLMLC [facility] [id number] Common 14:05:44 Mike [id number] [facility] 2021-09-09 Outpatient Zamudio, STLMLC ST[facility] [id number] Common 12:38:12 Mike [id number] [facility] 2021-09-09 Outpatient Zamudio, STLMLC ST[facility] [id number] Common 12:37:33 Mike [id number] [facility] 2021-09-09 Outpatient Zamudio, STLMLC ST[facility] [id number] Common 12:36:58 Mike [id number] [facility] 2021-09-09 [facility] [id number] Common 12:35:28 Mike [id number] [facility] 2021-09-09 [facility] [id number] Common 12:28:00 Mike [id number] [facility] 2021-09-09 [facility] [id number] Common 12:20:04 Mike [id number] [facility] 2021-09-09 [facility] [id number] Common 11:44:09 Mike [id number] [facility] 2021-09-09 [facility] [id number] Common 11:42:44 Mike [id number] [facility] 2021-09-09 [facility] [id number] Common 11:42:38 Mike [id number] [facility] 2021-09-09 [facility] [id number] Common 11:31:37 Mike [id number] [facility] 2021-09-09 [facility] [id number] Common 11:26:53 Mike [id number] [facility] 2021-09-09 [facility] [id number] Common 11:18:02 Mike [id number] [facility] 2021-06-15 Emergency [facility] [id number] Univers 20:59:[address] [facility] 2022-10-20 2022-10-20 Office Link, BC 1.2.840.114 [id number] [facility] 15:00:00 15:15:00 Visit Duran Tracy AMBULATOR 350.1.13.21 College Y 0.2.7.2.686 of [id number] Medi kenya 300 e 2022-09-27 2022-09-27 Office LINK, BCM 1.2.840.114 [id number] [facility] 11:51:51 12:24:50 Visit DURAN AMBULATOR 350.1.13.21 College Y 0.2.7.2.686 [id number] Medi kenya 300 e 2022-09-09 2022-09-11 Hospital Link, [facility] [id number] 09:48:00 14:49:00 Encounter [facility] 2022-09-09 2022-09-11 Outpatient [facility] Surgery [id number] [facility] 09:48:00 14:49:00 DURAN 2022-09-09 2022-09-11 Hospital [facility], [facility] [id number] 09:48:00 14:49:00 Encounter [facility] 2022-09-09 2022-09-09 Anesthesia Sheila Ruddraf [facility] [id number] 13:29:00 18:12:00 Event Radh[facility] 2022-09-09 2022-09-09 Anesthesia Sheila Rudd [facility] [id number] 13:29:00 18:12:00 Event Radhika [facility] 2022-09-09 2022-09-09 Surgery Link, [facility] [id number] 12:00:00 15:30:00 [facility] 2022-09-09 2022-09-09 Surgery Link, [facility] [id number] 12:00:00 15:30:00 [facility] 2022-09-09 2022-09-09 Outpatient LINK, [facility] [id number] [facility] 00:00:00 00:00:00 DURAN quinteros of Medicin e 2022-09-09 2022-09-09 Orders [facility] [id number] 00:00:00 00:00:00 Only [facility] 2022-09-09 2022-09-09 Travel [facility] [id number] [facility] 00:[facility]00 00:00:00 [facility] 2022-09-09 2022-09-09 Orders [facility] [id number] 00:00:00 00:00:00 Only [facility] 2022-09-09 2022-09-09 Travel [facility] [id number] [facility] 00:[facility]:00 00:00:00 [facility] 2022-07-28 2022-08-31 Office LINK, [facility] 1.2.840.114 [id number] [facility] 14:21:45 12:32:13 Visit DURAN AMBULATOR 350.1.13.21 College Y 0.2.7.2.686 [id number] [facility] 300 e 2022-08-17 2022-08-17 Outpatient R RADIOLOGY [facility] [id number] Univers 08:00:20 23:59:[address] [facility] 2022-08-17 2022-08-17 Hospital Radiology [facility] 1.2.840.114 [id number] Univers 08:00:00 23:59:00 Encounter [place] 350.1.13.10 ity [facility] 4.2.7.2.686 [facility] [id number] [facility] [address] Branch 2022-08-12 2022-08-12 Outpatient R RADIOLOGY [facility] [id number] Univers 00:00:00 00:00:[address] [facility] 2022-08-02 2022-08-02 (TEL) STLMLC STLMLC [id number] Co mmon 00:00:00 00:00:00 [facility] 2022-07-26 2022-07-26 (TEL) STLMLC STLMLC [id number] Co mmon 00:00:00 00:00:00 [facility] 2022-07-16 2022-07-16 (TEL) STLMLC STLMLC [id number] Co mmon 00:00:00 00:00:00 [facility] 2022-06-30 2022-06-30 (TEL) STLMLC STLMLC [id number] Co mmon 00:00:00 00:00:00 [facility] 2022-06-24 2022-06-24 OFFICE STLMLC STLMLC [id number] Co mmon 00:00:00 00:00:00 VISIT Spirit ESTAB PT - CHI LEVEL 4 [facility] 2022-06-16 2022-06-16 Outpatient R RADIOLOGY [facility] [id number] Univers 16:18:09 23:59:[address] [facility] 2022-06-16 2022-06-16 Hospital Radiology [facility] 1.2.840.114 [id number] Univers 16:18:09 23:59:00 Encounter [place] 350.1.13.10 [facility]y [facility] 4.2.7.[place] [id number] [facility] 8[address] Branch 2022-06-16 2022-06-16 Orders Doctor DENISSE 1.2.840.114 [id number] Univers 00:00:00 00:00:00 Only Unassigned, GLO 350.1.13.10 ity of [place] [facility] 4.2.7.2.686 Reggie as [id number] [facility] [address] Branch 2022-06-04 2022-06-04 OFFICE STLMLC STLMLC [id number] Co mmon 00:00:00 00:00:00 VISIT [place] it PT LEVEL 3 - [facility] 2022-06-01 2022-06-01 (TEL) STLMLC STLMLC [id number] Co mmon 00:00:00 00:00:00 [facility] 2022-05-25 2022-05-25 Outpatient R RADIOLOGY [facility] [id number] Univers 00:00:00 00:00:[address] [facility] [facility] 2022-05-15 2022-05-15 Outpatient R RADIOLOGY [facility] [id number] Univers 09:04:27 23:59:[address] [facility] 2022-05-15 2022-05-15 Hospital Radiology [facility] 1.2.840.114 [id number] Univers 09:04:27 23:59:00 Encounter [place] [id number] [facility] 4.2.7.2.686 [facility] [phone] [facility] [address] 2022-05-07 2022-05-07 Hospital Radiology [facility] 1.2.840.114 [id number] Univers 09:00:00 23:59:00 Encounter [place] [id number] ity of [facility] 4.2.7.2.686 [place] [facility] [phone] [place] [address] [address] 2022-05-07 2022-05-07 Outpatient R RADIOLOGY [facility] [id number] Univers 00:00:00 23:59:00 ity [facility] 2022-04-30 2022-04-30 Outpatient R RADIOLOGY [facility] [id number] Univers 00:00:00 00:00:00 ity [facility] 2022-04-21 2022-04-21 (TEL) STLMLC STLMLC [id number] Co mmon 00:00:00 00:00:00 [facility] 2022-03-23 2022-03-23 OFFICE STLMLC STLMLC [id number] Co mmon 00:00:00 00:00:00 VISIT [facility] LEVEL 4 [facility] 2022-03-22 2022-03-22 (TEL) STLMLC STLMLC [id number] Co mmon 00:00:00 00:00:00 [facility] 2022-03-17 2022-03-17 (TEL) STLMLC STLMLC [id number] Co mmon 00:00:00 00:00:00 [facility] 2022-03-09 2022-03-09 Letter DENISSE Silva 1.2.840.114 [id number] Univers 00:00:00 00:00:00 (Out) eB CODY [id number] i ty of [facility] 4.2.7.2.686 Reggie as [phone] [facility] [address] 2022-03-08 2022-03-08 Laboratory Only, Ang Db Test [facility] 1.2.8 40.114 [id number] Univers 09:15:00 09:30:00 Only Thea, [facility] [id number] ity of [place] 4.2.7.2.686 Reggie as FABIO?BLEA [phone] Me dical [address] MEDICAL OFFICE BUILDING 2022-03-08 2022-03-08 Outpatient R THEA, [facility] [id number] Univers 09:15:00 09:15:00 KRYSTLE ity o f [facility] 2022-03-08 2022-03-08 Ivis Humphreys [facility] 1.2.840.114 [id number] Univers 00:00:00 00:00:00 (Out) [facility] [id number] it y [facility] 4.2.7.2.686 Reggie as FABIO?BLEA [phone] Me dical [address] MEDICAL OFFICE BUILDING 2022-03-08 2022-03-08 OL DIG E/M STLMLC STLMLC [id number] Common 00:00:00 00:00:00 [facility] 11-20 Spir it [facility] 2022-03-08 2022-03-08 (TEL) STLMLC STLMLC [id number] Co mmon 00:00:00 00:00:00 [facility] 2021-11-20 2021-11-20 (TEL) STLMLC STLMLC [id number] Co mmon 00:00:00 00:00:00 [facility] 2021-11-18 2021-11-18 Outpatient R RADIOLOGY [facility] [id number] Univers 15:31:25 23:59:[address] [facility] 2021-11-18 2021-11-18 Hospital Radiology [facility] 1.2.840.114 [id number] Univers 15:18:50 23:59:00 Encounter [place] 350.1.13.10 ity of [place] 4.2.7.2.686 [facility] [id number] [address] 2021-11-18 2021-11-18 Hospital Radiology [facility] 1.2.840.114 [id number] Univers 15:00:00 15:17:00 Encounter [place] 350.1.13.10 ity of [place] 4.2.7.2.686 [place] [id number] [address] 2021-11-04 2021-11-04 Telephone Avril, [facility] 1.2.840.114 [id number] Univers 00:00:00 00:00:00 Saleem LAWRENCE [id number] ity of [facility] 4.2.7.2.686 [place] PROFESS[place] [phone] Ak xochilt [facility] [address] [facility] 2021-11-03 2021-11-03 Lab Support Service Tech Lab, Ang - Db [facility] 1.2.840.1 [id number] Univers 14:30:00 14:45:00 Visit Saleem Louise [facility] 350.1.13. 10 ity of [place] 4.2.7.2.686 Reggie as FABIO?BLEA [phone] [facility] [address] [facility] OFFICE [facility] 2021-11-03 2021-11-03 Outpatient Priyanka LOUISE SALEEM [facility] [id number] Univers 14:30:00 14:30:00 SALEEM LOUISE [facility] 2021-11-03 2021-11-03 [facility] 1.2.840.114 [id number] Univers 13:40:00 14:21:43 Visit Saleem [facility] [id number] ity of [facility] 4.2.7.2.686 Reggie as FABIO?BLEA [phone] [address] OFFICE [facility] 2021-11-03 2021-11-03 Outpatient Priyanka YINGE SALEEM [facility] [id number] Univers 13:40:00 14:21:43 [facility] 2021-11-03 2021-11-03 Orders Doctor DENISSE 1.2.840.114 [id number] Univers 00:00:00 00:00:00 Only Unassigned, GLO 350.1.13.10 ity of [place] [facility] 4.2.7.2.686 Reggie as [phone] [address] 2021-11-03 2021-11-03 Telephone Avril [facility] 1.2.840.114 [id number] Univers 00:00:00 00:00:00 Saleem [facility] [id number] ity of [place] 4.2.7.2.686 Reggie as FABIO?BLEA [phone] [address] MEDICAL OFFICE BUILDING 2021-10-27 2021-10-27 Orders Doctor DENISSE 1.2.840.114 [id number] Univers 00:00:00 00:00:00 Only Unassigned, GLO 350.1.13.10 [facility] 4.2.7.2.686 Reggie as [phone] [facility] [address] 2021-10-26 2021-10-26 OFFICE STLC STLC [id number] Co mmon 00:00:00 00:00:00 VISIT Spirit ESTAB PT - CHI LEVEL 4 [facility] 2021-10-16 2021-10-16 Emergency X SINGER [facility] ERT [id number] Univers 13:30:00 17:54:00 ALLEN teague [facility] 2021-10-16 2021-10-16 Emergency Singer [facility] 1.2.599.681 [id number] Univers 13:30:00 17:54:00 Allen LAWRENCE 350.1.13.10 i ty of [place] 4.2.7.2.686 [place] [facility] [phone] [facility] [address] [place] 2021-09-28 2021-09-28 [facility] [id number] Co mmon 00:00:00 00:00:00 VISIT Spirit ESTAB PT - CHI LEVEL 4 [facility] 2021-09-22 2021-09-22 (TEL) STLC STLMLC [id number] Co mmon 00:00:00 00:00:00 Spirit - CHI [facility] 2021-09-17 2021-09-17 (TEL) STLMLC STLMLC [id number] Co mmon 00:00:00 00:00:00 Spirit - CHI [facility] 2021-09-15 2021-09-15 OFFICE STLC STLC [id number] Co mmon 00:00:00 00:00:00 VISIT EST Spir it PT LEVEL 3 - CHI [facility] 2021-09-15 2021-09-15 SUB ANNUAL STLC STLC [id number] Common 00:00:00 00:00:00 MCR Spirit WELLNESS - CHI VISIT [facility] 2021-09-14 2021-09-14 (TEL) STLMLC STLMLC [id number] Co mmon 00:00:00 00:00:00 Spirit CHI [facility] 2021-09-08 2021-09-08 (TEL) STLMLC STLMLC [id number] Co mmon 00:00:00 00:00:00 Spirit CHI [facility] 2021-07-21 2021-07-21 OFFICE STLMLC STLMLC [id number] Co mmon 00:00:00 00:00:00 VISIT [facility] PT - CHI LEVEL 4 [facility] 2021-06-22 2021-06-22 (TEL) STLMLC STLMLC [id number] Co mmon 00:00:00 00:00:00 [facility] 2021-04-21 2021-04-21 Emergency Mary, [facility] 1.2.840.114 [id number] [facility] 17:57:00 20:45:00 Willie Lawrence 350.1.13.10 i ty of [place] 4.2.7.2.686 [facility] [phone] Medi tito [address] 2021-04-21 2021-04-21 Orders Doctor DENISSE 1.2.840.114 [id number] Univers 00:00:00 00:00:00 Only Unassigned, GLO 350.1.13.10 [facility] 4.2.7.2.686 [facility] [phone] Medi tito [address] 2021-03-11 2021-03-11 Outpatient STLMLC STLMLC [id number] Common 00:00:00 00:00:00 [facility] 2021-03-04 2021-03-04 Outpatient STLMLC STLMLC [id number] Common 00:00:00 00:00:00 [facility] 2020-11-28 2020-11-28 Outpatient STLMLC STLMLC [id number] Common 00:00:00 00:00:00 [facility] 2020-11-24 2020-11-24 Outpatient STLMLC STLMLC [id number] Common 00:00:00 00:00:00 [facility] 2020-10-21 2020-10-21 Outpatient STLMLC STLMLC [id number] Common 00:00:00 00:00:00 [facility] 2020-10-07 2020-10-07 Outpatient STLMLC STLMLC [id number] Common 00:00:00 00:00:00 [facility] 2020-10-06 2020-10-06 Outpatient STLMLC STLMLC [id number] Common 00:00:00 00:00:00 [facility] 2020-09-16 2020-09-16 Outpatient STLMLC STLMLC [id number] Common 00:00:00 00:00:00 [facility] 2020-09-12 2020-09-12 Outpatient STLMLC STLMLC [id number] Common 00:00:00 00:00:00 [facility] 2020-08-26 2020-08-26 Outpatient STLMLC STLMLC [id number] Common 00:00:00 00:00:00 [facility] 2020-08-04 2020-08-04 Outpatient STLMLC STLMLC [id number] Common 00:00:00 00:00:00 [facility] 2020-07-30 2020-07-30 Outpatient STLMLC STLMLC [id number] Common 00:00:00 00:00:00 [facility] 2020-07-01 2020-07-01 Outpatient STLMLC STLMLC [id number] Common 00:00:00 00:00:00 [facility] 2020-06-02 2020-06-02 Outpatient STLMLC STLMLC [id number] Common 00:00:00 00:00:00 [facility] 2020-05-29 2020-05-29 Outpatient STLMLC STLMLC [id number] Common 00:00:00 00:00:00 [facility] 2020-05-28 2020-05-28 Outpatient STLMLC STLMLC [id number] Common 00:00:00 00:00:00 [facility] 2020-05-27 2020-05-27 Outpatient STLMLC STLMLC [id number] Common 00:00:00 00:00:00 [facility] 2020-04-22 2020-04-22 [facility] [id number] Common 11:39:00 11:39:[address] [facility] 2020-04-15 2020-04-15 Outpatient [facility] [id number] Common 15:20:00 15:20:[address] [facility] 2020-04-07 2020-04-07 Outpatient [facility] [id number] Common 07:48:00 07:48:[address] [facility] 2020-04-03 2020-04-03 Laboratory Lab, [facility] 1.2.840.114 [id number] 15:59:39 16:19:39 Only Fam [facility] 350.1.13.10 [place] 4.2.7.2.686 Professio [phone] nal [address] 2020-04-03 2020-04-03 Outpatient R [facility] [id number] Univers 16:00:00 16:00:[address] [facility] 2020-04-03 2020-04-03 [facility] [id number] Common 11:15:00 11:15:[address] [facility] 2020-03-07 2020-03-07 Outpatient [facility] [id number] Common 08:15:00 08:15:[address] [facility] 2020-02-27 2020-02-27 Outpatient [facility] [id number] Common 11:04:00 11:04:[address] [facility] 2020-02-25 2020-02-25 Outpatient [facility] [id number] Common 10:39:00 10:39:[address] [facility] 2020-01-30 2020-01-30 Out[facility] [id number] Common 15:45:00 15:45:[address] [facility] 2020-01-30 2020-01-30 Out[facility] [id number] Common 15:45:00 15:45:[address] [facility] 2020-01-09 2020-01-09 Outpatient [facility] [id number] Common 11:17:00 11:17:[address] [facility] 2019-11-27 2019-11-27 Outpatient [facility] [id number] Common 14:00:00 14:00:[address] [facility] 2019-05-22 2019-05-22 Outpatient [facility] [id number] Common 16:00:00 16:00:[address] [facility] 2019-05-08 2019-05-08 Outpatient [facility] [id number] Common 16:15:00 16:15:[address] [facility] 2019-03-20 2019-03-20 Outpatient [facility] [id number] Common 08:20:00 08:20:[address] [facility] 2019-02-13 2019-02-13 Outpatient [facility] [id number] Common 16:15:00 16:15:[address] [facility] 2018-11-24 2018-11-24 Outpatient [facility] [id number] Common 16:23:00 16:23:[address] [facility] 2018-11-13 2018-11-13 Outpatient [facility] [id number] Common 16:30:00 16:30:[address] [facility] 2018-09-28 2018-09-28 Outpatient [facility] [id number] Common 15:00:00 15:00:00 [facility] it [facility] Results Test Description Test Time Test Comments Results Result Comments Source Tissue Exam 2022-09-28 07:24:40 Test Item Value Reference Range Interpretation Comme nts Case Report (test code = 104) Surgical Pathology Report Case: [id number] Authorizing Provider: Duran Wylie MD Collected: 09/09/2022 05:13 PM Ordering Location: [facility] PERIOPERATIVE Received: 09/10/2022 11:48 AM SERVICES Pathologist: Ada Locke MD Specimen: Mass, Left renal mass DIAGNOSIS (test code = 3220) [id number] pc dWMxIHtccnRmMVxlcGljOTYwMlxhbnNpXHNwbHRw R5EvisfuNWcvEV6hZX8lrTdkrMZseQGvSLVmTdLx k6pwa386qXYzc4ssOMTJrqpkxOp5mFmvB13bd9X4 FvhmU86qcNKzIUJ2RBOtBKZfvKQcMQJyKAG7DPLa oWRrE1xhONVfNL5nksnwTJdtGBauNJDpkYQ6QRWz mKXuI6KxHIAhJCmfUYPzjuv3NhZtYr0pmHVipIki SSbfJRGnZSTeTUxsNTYsWcKgQ2cUSiPMLTWJMPGT NIDCRDTDUVNIQK5YPIaLLSGKA81YFoprYMEeoIWx EX1wE0kOTVWmD6GVHZURAZ2QFVZUBVfBTSFXAeFI Dc7TTIznN6fEN9mSJVEcN3YIRWPuC0hgFRAxqWVl VD8lMFMTK0GkB6riAIgvAX67BHWPCKjKFlCPCGAT ZURERl6BGaXZZN4SElVDM50mSJRqujq1RSDzLBIC ZN6ZOgXGHV3IGTTZUZCHJPuPFL0ZCVcaPWOrfYUe LQ3jDp7gH2HJR71VMDUWPUWbXzUEZMEPIBIzLCID JjTWBofIEUiqMQBuhPKdIO2kQt2vIzcVRmWYKZTn QbWQZBYBKAEuDEDCEiWGZozVCMpsDZXwtQGfRV9n Bj4kIAxHLKaNGkMNC8ZTUZOdSL0MJUVKV67kDAAZ OvILDznLEKztQGRwsVJcZY4dOFIKA3XdZFFLXSEf PTkDKIJMZwNWM0nWMZZJBXFXXbhVI1JDZW8YBtrI QxhbCZMwfXVhMJ3nS3PFHkZhVh6GQA3CB5UCPRSW WVDiX3xLAkJOFGbZHHjvZxNADKOSD9lKJi6YMSZf V3sZCZKZGFmNBDZnbt70TLM8TiTfk8T5XTT6KBGy JXBwj4meFMQnvSGkZbPdOvBjSoJnLditnBUgZCBa WnKwd4qlw712wAEdt0roCHAvMnA6eJKfXZYgzAAp W761HVVhMMuiw6vrs1PtIKHjiOBmr8T8FCQWuyqu xZj0vOkmO69ep7I9LhowT1epSONqNWFeX3BzOM6d CEVaPfd1PAM1QRH4EEQmZOTmD0EpDU5xWMYmjBPw UZx7e9avyRdbNPGwZDG3f9xeSAzcsyKwIM1cxn7j mPk0k6vepaNlJQOnXGLhrOSAXVArE2CuoLteVg0d zFt1iMhdObetOOT7Pxj7JO6ann02jfj9nPraSJCq kpxmVsA5SWwcHNUrsoqiHWg7BHmbWOZkeLP9UJZo vGVpG3NjPVDcVU7uleb6QIV9BMegEBQmSqA8ZFTf dYJmBUEwhQrrUUxdn886YXA0IpRoHI4gW8Mtp7X1 jO4jcXTgWIAhcGHbAtSfKFRfkv0khCIvPQnzf7Ku VRL7gyQ6zCTsbCExLJVnDvO3DFmnQG1unl41UVFw VZK8bg5aoCNuyZewnuRbyRJbVGikE9KmEMZlg113 LQYvC9EvIRTbb7K0yfXoEnWxIHToaNU7kmS4KZTi WW6eeussw9soEEwsZOqfVAHufqT0zrS4BROwuVAi R4OzrR9wFVXyRE5cjsqio7ytQUH0XEazRZSoTCM9 MdYpMMXsp9Nszqt5TyHge2LipBLbEQdpT86wa663 OZMahvQwB7fhtANxkdnegIPptahfAMeaqfE5MWFq TNvicvkyQFMdZRaaZ3ftSqGtBMKkrUgiKYxsq4Iu OBKsRTHhJnVnbAZkLGBnBre8EOJsbLTjRGAlAaLq V3aumorvMcFWYKAwp4lmR5jpmAYYdBUxF4WnQPop swXjGSqtRFxeXgRzXFf0KW25EqBfRLJccw26 SYNOPTIC REPORT (test code = 5765) KIDNEY: NephrectomyKIDNEY: NEPHR ECTOMY, PARTIAL OR RADICAL - All Huinpuncl4mc Edition - Protocol posted: 02/11/2021 SPECIMEN Procedure: [...] glomeruli CPT Code(s) (test code = 3357) j6qvlZXuSXOmuUW2LdTgNTUxq9vsu8LczNPm cGFy MJcygSVppxDewj68kEB0mE57RZ4fYVPyOhY4BZPj osM6Yfq1FSBjNSCjtMQfV109x2lri7hbsiHohIV6 jLqsWCQcdewtAuU6OMrfJCMotrwrUPu4GMcqNNNj cCK6RXEmuVDcA8TyNJNtXA9auqc5YUM7NKvwVYLv SsX1RCAesSJoYWTddPnpGLefx746JLB1HxKxXWSh dsFmdDqszU4vTsEhXZV7GKUsW4atOCScXBrsXGWt cGFyfQ== CLINICAL HISTORY (test code = 3356) c5jquPVlUPYavPE7YbQuHSWuc7snx1M sdHBncGFy PJwifPNytoQrtm67vWA0sF08XN5iGEJrPnA8XZDz qsD4Vip9QECiIPCoyAIlR834a2smu3gcmxNecNT9 sKgmETYjvqxrNtK9WPatCALnyxfwQWt6PNqkHLYg oOS9RUNpbKNkW5SiRZTxRD6knfj1XXP5ALjeBDEj HrE9LJIweVGcUOLxsWnlDBrkj917QDC5EuIeJKEp ttQsmWhcqN8yJiBeHHJXJR8wjAXbBRSoMCEiwd0= SPECIMEN SOURCE (test code = 3377) a6ljhBHwEBWsuCL9CvSlMCTbq9pek4Yn dHBncGFy PTmkhBBypxXxar17tWN7iM05PX6vCPFuCwE6AEDq lsE9Tre7EPYuXHEafLXtP176m1dkx5alrdZbnNY4 kPsgQGKkdggqUkJ5SNssRRGheremTOe6PAhuDNAo fHE7PYVcrLNgO6EgOAXcEF9jsqe4GVM2MDteFVWz IfN6AMQvrDRdBPGevQwkNHtod298FWN2YgMiGEQe ukGteOsnqN9eSkTxNPGWJfUnJ8fensM1BGUlODQ4 LCBtYXNzXHBhcn0= GROSS DESCRIPTION (test code = z6otnKMtPVBmgXV2CiZtNAYoy4pux8WowXUd cGFy [id number]) [file] zLIfWMQ4ZS5kvIblQOQ8 MICROSCOPIC DESCRIPTION (test code = e5zyqCEgHSMkgQA8UhFaDETjl6jce4 BsdHBncGFy 3371) VDdqlJXcizAjfp74xAG8oM94XE6eETSfZrA2HIGj yxV4Sap9JZCiUXHbfMVeM027y4vuz2amaoAgpVV7 pYzgGJKwnetoCjL1KGjdQJAxcpqnRPy0IXbjQBMc mVE3HCWdfYHgI9CwZCXjBJ4hsmj2BDP5XVxaPXFq RbX5EWFxhYYaKLBgyEtkWWhgz885STO6UmInWLGd sdRzzTnnhJ7nQjHeXPOXKyK9GUxkzpWuFGNoh8Fk WTMaf2e0fNEgxRTsd7UigUS7RXItj122jy4iUGOy tmVmkPcwPJR2LUdmPGisZZybjYSqdIYxrUTaRBXx TY6bN7M3hZPnMbZKsVk2jKEcQOLsCRHmwICcz0Ye fZhsABUsjrPiO4g0lYCnVY8jydpswqJ0DMBrGDZ3 JQ0lnjGnUTjxENGaLDHgpCWfMCYqgxNauOrjBQAd jhloJy6sDLkpbFCqTfA3nmD3yVgyZM4vxzlbqq3u XHBhcn0= SPECIAL STUDIES (test code = 3376) j7kpwOGnTPIho6iiRUPclRFsReOmSnIf ZnRuYmpc rXRkCAuvsjDqKTtgv6DoG0DnMhKyJQtuolEsHRXl OyikfbjqKPVcQHF7adUzNATuCDrwKOQuJWfnRk3d nOTevZsqXgIaQTWef8nkmuJJfefhfTg6d8jaHZDo KaQ6iWQgRZfwN6fgdrDhvMPdP2JsbEOsnKe3j9rj YtInDwE7iPOxYAwnE6bvneBjfAIqEIPwCTz6mO85 ZVEaeR7mdNVcADhphlPdFvV2GKcoXETgTnU4GWMh xUXpLTQaC7sjKQAkRUfcFAGkXMxjpVTbSUQ5cAha k5M7uCZajRWfiBkmUgJiIkKdSvTIg4ZhKNx4eFfn Z2QyVQBtMpH7vPPrIUSzQKpuBXHpRKUsjxF6sAay oeEui09xjOMdRRSzMZBgSzHcfKfpMGQmLJNTj1Rv oFdiNDY7cBw6nKlqFqnuJHZ7Xsi0WX4xkp19dtf4 bUxsNGEzltliEyL5SLdbNVRiwhlnWIk6GCnyKQSi bDY1PAIprHFhG9HyVQFqLZ4fgip9RGR7YTunWCOh WlN1CCHuuLTyACLouTovVOkqx343AWA2KjJtXQ7u T0Abd9Q8sO0vtCSeVUGdvSSmFxRgZHEyij7xqGBm KPvtc4IeVPW9ozM2xSJtdLVyCFByNG51Nubaq1Oy Yvthv3NoF47ntHT3UOtey3tvGF5kHyX5ijAhJFxt r0jdsS8hNfL0VStvBT7yII1jNLHpaS1euqrmRXEu YcNswdxvWKMswVwkgpDfBu1jvIktBPR6RSfwE2ps vQ4fAyH2QHdgK1syeT8hTLb6KPuttSV2KFDqeO1g KY1vchmxk3usDQqoOQayCFSfdsW5hfF2IMGzyPHh H2XywP1eNPNzUT1uxkxda1pyNCM9BEqlQPGeJVS8 DrWmAWLga1Dovxq5NaGum3MioLIlAAmoS15ud329 UYEhmiAoR3djwXDqbvcvgFYpclmfNZogxvA0LYOg XHBsYWluXGYxXGZzMjJcbGFuZzEwMzNcaGljaFxm GLflFnZqWTGvULbmG6jcRsUpW3TkPFDuQaEmHNto SRiheIKnlWDawAM5vY1sBT7wQSFurAHsT4UjTAQg jbUejLFbASZ0qERgfSHsSZ0hUJyzsNDhk7chc4Ch C0vckKfcjSZ2FA3bJGYlLGDbACxud6EiqB5dKxjn nFDhhphgGHyirxHpZMqejklqGMWhMUzsU2jwPaRp BQMdeThiKTmsn4EbSAZsSEVcJlsbdeTxHNx8hxNp DIKptqrrISMdwRpxsF9mCeOgIsVhHhkqCO0sPXJe S0visDOsRPFxGHTkZ1cyOpRobW9izScoBAxnQdNw WvYyCcPXp708xi4oPOYbpWVixpVQmAVzwQ5nGRez ODkaQCadxRPsYNfcv6frCCVzd0g0pCAtWIPiurYt e1nxNUazxyGlDDXpvDVkjDGqQFEki49wWAyoxJsh gBlpASOvx4OsyVzoh3RrIuIvFQyqh8QeX43wlFTj pEKleHxmNFUvstZkXVJea24ht9fnZHIbKjB1qHMe xDR6oODcgFAxe0NjsJmoBNSca7snDTJoeq5ozlfu uNPkh3JxcD5eilyzXCylcSIgqmEyNKIrx0u4jHTj UUPvFFIgBKaelSm0YKKrs797vg1dzdJ7jTVaPJP6 YWlsYWJsZSBhcmUgZXZhbHVhdGVkXHBsYWluXGYx XGZzMjJcbGFuZzEwMzNcaGljaFxmMVxkYmNoXGYx BHdgF0zuAaYoJ7FnHGMaGmPrjLGdA3qudCLhYPPl YWluXGYxXGZzMjJcbGFuZzEwMzNcaGljaFxmMVxk SlEoDWDvXUsfO5osByLiL4WaLLOyJtJpEXcpaWAz noxkBAzqzuGrKCvqutkdEHXqKUddZ8eoEtFeJKIi dOypZMtjm2ZaYGHtEQUaZqbcfrJfIZs2tzLaXBTf sgwtfFIxclpfUHahknGmTDmvspbfKZSxUWeeX0nw [file] JmgbNLR3nZ== Gross assessment was performed at (test [facility] enter, code = 2777) Department of Pathology, [address] [place] [id number], Technical component was performed at [facility] er, (test code = 2778) Department of Pathology, [address] [place] [address], Professional component was performed at [facility] enter, (test code = 2779) Department of Pathology, [address] [place] [address], [id number] 07:24:40 Test Item Value Reference Range Interpretation Comments Case Report (test code Surgical Pathology = 104) Report Case: [id number] Authorizing Provider: Duran Wylie MD Collected: 09/09/2022 05:13 PM Ordering Location: [facility] PERIOPERATIVE Received: 09/10/2022 11:48 AM SERVICES Pathologist: Ada Locke MD Specimen: Mass, Left renal mass DIAGNOSIS (test code = [id number] 3220) uZzEwMzNcZnRuYmpcdWMxIH tccnRmMVxlcGljOTYwMlxhb rLuBCPfmPGbF9ZphuldOUjp IA4lKV8evWjblYEzzXAtKKV iGvDhj4nqb482uMMmh2irOM FUbkiznBz4wOdwF11qo2A5Z mmrU16krKMrCTC2QOAzXZTi gOBrFZCkMQY3ZQHsbWCoO4l xABIxFS6atbtoGJnpXLoqWW TmgKR3XMKmkBUjG0HuOOShP NroGTGukra6AxFeAp5acHEj eTcyMFxwYXJkXHBsYWluXGZ yDeBvD6vSZrIUZQZAUZNQAJ JWCLAACZYEPV2MDPiSHMBXK 42BFwwyFSMrqLYyYW4gQ7vB SJVnW7OULIRIWC3ZKDWGIJd DYNQHDcEZLn8OFBuaQ3kHV7 cNLDIyJ6OORFIwZ3itJLJlt TReMF8iVJLCT1RxQ8fcZWoq UK83MHTDYHyMXpOXSCSDHFF KCx1PGtYAPD3GKbGYH45uPH Gsmfe7MPZvCGXBXK1OOrOAL Z0BZPQIALZKNQyWZZ2LDPws WSVyeREkNX8kRj8cR7VZS68 NQVRPSUQgRkVBVFVSRVMgSU RFTlRJRklFRFxwYXJcdGFiI L7dXn7hXfdJEmNIZOOoEaAD VFVSRVMgSURFTlRJRklFRFx hHKDkbULvWW3lRl8iFKgFLX jMNnCBQ3XBAPRrCS4IDDDHI 04gSURFTlRJRklFRFxwYXJc gAOmVS3dKIQFM4GvHMTAFUK jDPeXUMZRNvGVE3cUHRFNER XXOesOJ9LGUD1GTkyBNetjZ OZlyVHpXD7wA5IZEmXmCb7H HY5CD0LNOMLQYVJgV9jPPsP OZPtIGUgcAiGPSCVDX8fGOg 9VRIQyU1mAJCIKJRkVVPMhu x12VBQ6YbVrw6N7RFM3HFJy CXZui3ttDOYhxPHwRiXnRdG cZnRuYmpcdWMxXGRlZmYwe1 ppb322vEDaa7ikGNXfJrD1p JRjFVMlmNGzW258XQKvKPne b2pyd0ObWEVqcOEjl9K2SZC QgpchqYd7kVpcF33gm9D0Fs gcI4yfXHYmELGlP9ZdMO1nH WCiXsn3ZJL3OOG5ZZVgIODn N1CzZN2lWAQrvPMaETx5n5y tgUzhZDYqKXU6o9hqJGyybr LrOL2odz0etUo5e3ldypEaY PFkMKKsaWTCPBWxS5DuhJkz Ge2hsGx4bYdpCkryFER1Yal 7ZN2fzm20pum5bHniKLBypt uyMjW3IAmoKROaiocjFKs8I AbeSEKtiKV0OGFteODoM3Bm DNPvZD8zriv2OZB7NCexDJS bAnC9JCCnxJMpPGQihAkaSQ oxp746QJH6OkShWY1rK4Bzw 7F6mM3chHIeYAFahMLgByKt PWIcnv2txTJgLAmvv1EnVWS 5ezG4yFRymDJgTAJwBxV3EX xdQM3azk71LIVzLFH4sa8xn LDtpNmcitOniLNrEJudG4Wp ZMZvk530CXXfJ4BkNGTyl0P 5yaIvOnVtEJZtkTV8kwX9YM MaKB8eqfujy8jkMLdfNVrtK XQseqN8aqU4AVJsoJIsI7Ah yU2qIDCvQA8kwvyvf9vfZUU 3DUhmQLOrWSW6PaKdVFOyy7 Ixclo0YgDao6AksDCgXWqgX 22hn624VFAjicMnW7ddsXYe jxgiiQLdautcEByvumW1XCU rLHtmfyifOMAcNXmhM7jvZr PqOGIwgQgqDNzro3OrPLHbE ISfWaMidDZbGGDmHey1CRPs bGBdTYSzYlOgV4nbvgbmMrV SZXMaw6pcA6ydwFHQtCQkG5 QgUGhvbmUgTGluZTogNzEzL Cr9NY34TxZkQTTlwg28 SYNOPTIC REPORT (test KIDNEY: code = 5765) NephrectomyKIDNEY: NEPHRECTOMY, PARTIAL OR RADICAL - All Ltvqcnvmn4is Edition - Protocol posted: 02/11/2021 SPECIMEN Procedure: [...] Rare sclerotic glomeruli CPT Code(s) (test code o4bepRDgNOXvmOM9ImTnAWO = 3357) ko0mhf6PnqKUmmQQoXLspuI RvufHaux63aPO0pI90MA2uQ XQiCnE3CCBtesT5Fbp5ZCEr VONcsVZqL736l6bkf6vncxJ amDB5xRtpZBWombihSqX9KR tlMIDtlvnzVFd8CVezCQMci IK1JXYcgQKkX2NiHTLlJX5z pdn1IJB3LQekVMFsQlP1DAK qrHYkPURphIjiKKxsc712DA X1JyXdNHSvijDpxTktvC2jO zZyRAA3BVPlK0qjDIXoKVvw NDJccGFyfQ== CLINICAL HISTORY (test v2sxzEVbEDUlsKE4CeEvUHH code = 3356) rq7wku4EgmQHaaWIeHYourE UqeaIecg36xUG9dT02UL5sE AWcQpG5XYZpsfC8Rzv8JHRg ZDRxzZIuV906m7hfg0buedF dtNS5xEuqJQTxxifpSuU7HF wrEMJtqwujPJw8HUoqDNKvo FQ4KDHcnAGiG0ArSPSxVQ6t pov4RPU3ERahPANgFzT6PZG waFMqFHUkgBqmKLtzd043AP B4XbHrJHLmujUzuUexaP9wB pQjHHKDSC4xqWTzZBIgKNHs cn0= SPECIMEN SOURCE (test j6zbaWJfKZVerQO5BbAiGCL code = 3377) ky4xyr8KriFIeoFDuIDlvaT SursVwps24yXU2oC84EN4xA VTlClR8LURpfkB5Fag2TPJx CHYjwPVeN850e0efh2oggfV tuWO3vElhVYCfbdjrRrC7LI phDYBbrvfrGUv3BWhtICZnh SJ0FRFhfYCwT6WeSYJvQT5l zue0VKQ9DGdoWETcNzL8UGW miICpWGUxtSdkNKsdz158OS O6JjAnQWBecwJrqDmsiJ1eG vMnGTSJEcUuZ0nklfC5NZZw GVA7CPCdCONfEEInrt3= GROSS DESCRIPTION n1hyuMVsPHGerHD6XqEcJYQ (test code = nw1ejc0CdcUOnjAPlCJxxyS [id number]) GzfbEqbk62jRY7bW00AG5vT NYpZsU0FZRwezG9Gjm1JHBn EEOagVHnD764w7stu6kkrpD wmDG3WAKnFNIkK8BqZE2zOF PhdQSfQ67abJTmLOB0VNTfF XMzaZBeEJFtVKX9PMAavPLv I3luHTTsOE6zilpwMEkaYJt tEHMtaYL8JGZomAKlM3MgAG AmFTttAATapfs3WoUtPu0te KHhoTnxYWqdYYNyc8coEQDr hOVxTHX9IQmhqEFxGLElZWU mCDd9WZVlYDgnkDTdJF5zbC orUxsqzRcqm7CiiRKvFCpzH PFwUXMgAMqrPVQsF2WQAHXc MgobMoW6OaUbDWd4AEhtN6Z IPMRuWCNmTjU8IxioCgT4UA u0MBRXBm4zMuC7AWYyFSf7P JU4JALjYGpgiZHtWZeyRlrd QGbrAXLeuTZqIWozlcT6HHN tSYnoTWQgIqSvCR0qHZNbzc 9liNMxXNOmJiAyRqAjRXl9P ZJzIwKcv1znLEldBzGfRSGb l7o2iQE3dEHapAM2oFSicZv bFR3mhWMmXT1UZyTqtvFvD6 IkTODjfYdyIjCiFFc6X1hlF pStyFFjeMDyLP8ekFVtKSZa YTOjWTk2PXXfJRLsLbo8ZQj jEUIqYAAtGUS6NWBgH4WnHD clIHQsWIInDC10YWtsFz29P OhzCp47RXtoXrXlA91tlJEp EE4iCKHqSULbyvMhV3BbhEJ eaShhuOHfFUWassRszU3lrZ R7aRJoDYIko1eckoubtJDfh fQvAN2laG69PO2kIRUqtvid FTHferdcLBExaSYdSI5rFNb vWC4eQVcqIx69ZTmhSZCxgK WvOHCuV7Mbw83zehodlpC9D AKcwjLlCJiuiUrxM8nkH8Qe z9MbvWMoRVH3GP6krScyxlN oo5JfbBw3SUpwuA2vtngnW1 coVH6pb8Rrw7ozR1stzCViZ NMfty32dE2inGFfqSY6rYLj v9YdXKHluCewTCMjVTSpBXN pqPEgYVcgt7FjC8OmOWDrRR Z9IAApZUH4EYXmOLruPPUuP TFswMXtYZK8gXUbzgisdYrj JLEksoYtX0h4xRQyWP7blyh qclAxrbOrC23rYIMov4e8fJ egKGRnMJFrvVVfJrV8tDXxJ 8Etd2SrRQwujBKzoeMzobGk mn4ez0y7URDqhcKgsuVwSZC vIHRoZSBraWRuZXkuICBUaG UsSBQchkHtiC2rfTLvZPDeC K2lkzTlcZ2iusCvyMRuMWIn UW1idQHtFJTanaAkpY3uLaV uAIgmCU1ps9HmaJGdk2NpxH y6oSTxPHWkeKmbIGa8OGrmE WYho1SvpQLwTHLiYOQcPt7k yGmqBHufURDhZS9xYGEtWPJ 1FPlnPDPjVdv8JZxeDHWzKR 3zhJqsXOpdtQZsM8iwKIHvf fISqKVjcgLPOYNcmLwbS0Qi cmluZXBocmljIGZhdCBtYXJ rlO2eoAYfLDXgabPuWBBsPU MeORunFCAOXEGonXSjd4yrd Xmdy6JnyXSoJZ51BCKbeMVc CCW2TK6szGkhNNB4 MICROSCOPIC b0rmsPJdJKDhgKU6VdFrDTG DESCRIPTION (test code uc7pmg6NdkUKdoEIeIGkptQ = 3371) PehhNlol93mYF4zN66ZZ4oQ XAnOuC2OSCeojS5Vpb4ESZr OOOawYRtN654q2xha9gbqhR tzVG1rGbkLEHrzjzrRsK4IU huPXGtoxhmUXr1XGhzJIAzp FE0VGYheWDpO9LfNDSpEA2k mtc3NOS6PYphVCMsShB9NCZ wyYKjXFIikAriOGkik715RW Q3XoLtPMRwcxDgmBnkyE4yX zIyWMOMBlT9ZWmcpvGyNYEv p5PeUXJwp5d5jZKhnHKaw1I unMK3EZLrn469mr1oISHjqh EtoRvlVOD4TFxmTMzhNIgoj MAxtROxxYVwZCXbQS1sI2S3 hIGgPvLKePd3aVBsECRnTJY kvKEkh7PceCxqGZEzmrDcL6 m5aAPwHM3ayejuorZ5SLZoG VO6TO2hgyNuDVqvSNZyXTFw bHMpLCBhbmQgdGhlIHZlcnk uNw6xNNylzHAzHzM3lvD6xB ogGL0gdlscrx9qPRZibs6= SPECIAL STUDIES (test a4efyYHiTJMxc1ovUWQbnFA code = 3376) uZzEwMzNcZnRuYmpcdWMxIH jblsVuOQehk7BrB1HvHqNpZ FxhbnNpXGRlZmxhbmcxMDMz KPB6dnInQDVoHClvVSRrCOt tXp8zoGVgePrqDoSdRLNdc2 axhrADkqaawZn9x0pkTEZkI yT8pIBbXBcuW3tfuhLvbKKv L8RfeNFgeEx0u3bqQsPtZtZ 0vAEqFDyvY2rstlVudLQlJY AkLJb6gB51XEExzG3twGSzI GkfezGxLeT1WMdyIEUsTbO0 LCKpxXByKZInM3cgFPVlRTq vZFDbTFhzxVWdLBD9dKsuc6 G8vOTqtXQqbAskJgFlVbQzB cPOh8YgOZm0zIvoL2CiYJYi OqA9jERsWMDmPSgoWALdGLH xgyK9wCzvgaWok36kkEHkRB YwXGZzMjBcbGkwXHJpMCBDb 9WgcBmtURQ2fDt6sOmxEgmo QAY9Tgr3DM1gsx51wmr4zCa yAIFvuontYaR1SUccOEQqcf yuBNm3UWcqYZGkuLQ3OWAbp XJfQ1QjWSJnHV6riqr8IVE9 JFzxTGSjDbX7JUTcyWLhKNS olEhwIDksh160HTU3LnKsTX 1fB8Ybs3Z3fH5lsXPpJCTln QNgLdOeRFOmik5vjMAvVRgv j7NgQXC5zgB8aWJioWXlJHE oES80Bfibx2BsLeazx8MoG6 7zuSK0ZVybn5qzDU7fGdY4q sTsEGxfg1sneB0bWwV8IBvi XE5uGR8pYXElsM8oflezWNW nYnJkcmhlYWRccGdicmRyZm 5otUjhYJH3MLdzQ0vceG3fR gW3OTzpO2jnmZ9dWUk5WHms zPT0QTUbgG1fQK1whipiw7f bKNlqYMjmGCWxicI1etC7RF AdhSBhS0OazA5sFXSbFF3nz bydi6ntFPF4YNksLSClINK8 BhXpWKPzu2Gswcw9ZsEgq3Z cjJIaTAdhE32xu158AVVdht OlN5xwoGDikvxigFSznhxlX AblfaG7PHPaJIWzYQluYJXm XGZzMjJcbGFuZzEwMzNcaGl jaFxmMVxkYmNoXGYxXGxvY2 muEzLdR5RcIZDxXmAmBIwoA QjkwOJngYCkhOQ5mN7qEV4n KYAxjNMrE5OmDUVwvcQbkZF oZNL1fKOgcDYxRD5kCOclgD Mpy4uvf1GwN2qfgNthgWT2D N3cHCDcJKHzZVnyo5MxtD1i LlxwbGFpblxmMVxmczIyXGx vaqipKTFcQXxhW8hlTlJoXI UujNpkQQzbo8PqAGOtMEExF gbpajVoPYk6ctMrTFTklukc LSJeiIkutT5gEuYpBuRiOcx wGB1mTMWvG5srcRNeTGSlNB UkC7bzBdWsvN3bsYygQTerL cZrXiMzLnASt198lv2pHRRc yHEvuqWGdZNznG3jTClyFGq mHUasdSJuZUuiz0niNQBcw5 d5bTKoLXKehnQpw1ioEJmjm sHkOPFmtFAzkMAjWOEpy77m NUmdaEvhsNkpMNAxu3JcnTk js4ZmRrTcGKjxv3CdM93dnT JvbCBzbGlkZXMgcnVuIGFsb 18og1tiFXZdPsK1iVBbqCP9 aWColBSoz4MdmIrcSVNlx9y wZHPjxf5pyesyzITeh7WihX 5pbmcuIEludGVybmFsIHBvc 8f0xIOhIWSgDFLfEMjlyQk9 VQPrf201wv1dijB0jCHoBJC 2YWlsYWJsZSBhcmUgZXZhbH VhdGVkXHBsYWluXGYxXGZzM jJcbGFuZzEwMzNcaGljaFxm DHihNiZjSIZsNAcvG5rzJlB gF5CqFJBgPqQkvSEmN2jipC FyXHBsYWluXGYxXGZzMjJcb GFuZzEwMzNcaGljaFxmMVxk FnJcTSQjZFbqY9pdEdRvL5A yXGZzMjIgIFxwbGFpblxmMV xmczIyXGxhbmcxMDMzXGhpY 3gwRtBjPHLfyNbcRSbyv6Rc HKXjMJLaBfcokyFjJGd6rjE oXHBhclxwbGFpblxmMVxmcz ChETiptyldCXNsTBegI2maD yWwYIWurTuwMEanb4GjDYOc MBAhZfzrvoGcSXetdDTli6z bb6EhQ9zupTkcqTN3TYCqC6 rxqZKjoYY0ZNB0pM2gGPmhz xBxLIJzz5KhWXOlBQJoFeR8 jG1bDNG4UnTYiTukBWWeZQm uXGYxXGZzMjJcbGFuZzEwMz NcaGljaFxmMVxkYmNoXGYxX IffA7imYmBoK8AnGHIxRqWt hYaqRDhtIGv1TheofCKwvji mMVxmczIyXGxhbmcxMDMzXG dxU8dwVcDvOLXnhJcpOIeme 2NoXGYxXGNmMlxmczIyIHMg ZBGlfNUcpKMVST90KHOwKDS ujLcuwD7tkWFJYUBkfnP9i0 Q5TGizZZDkJHn7AWoewiJiE BIlpW9zTCWlQR9bJJd8chEr NWJnx1VmMO9rFFMpfEMhUIS 5THWzo6ZgR8Svc0QnBAOlON Retj6gztLsNlYQeOFpBDHdq y53TNVvTL2yA4azOPWpRKGy ajRuvMLep8LjFHYvpTI1aBP dIO8AAyPRl11oBVGgMYNZiy YgVOPavNumsCH3nuY8qK1yI iBUaGUgRkRBIGhhcyBkZXRl rp5otyJlJGNeORXch2OobXG glQUmglBjE0Vuc9LxYRPgac 68JRdoxCAsgm83QT9vO1Vwu 0PzfD0uFKmwBCJwx4CcnKPj kSBcGWRms8FvM1ylkhldNSr rtBZeaH7aGGEnEIq2QDTzm9 JzGXHer4UcUkYemsKqLJMwG XXfHYJgcP90PYI9eFpgrGnt foPpTP0gAKLwljLpDOHtFFX nmI6wDJmtnrWbYFZjjlV5z8 J4FUlhJIIzhyPhBmweSRS1z bNaowO2mPQtE3todnadKWii BRNej9LgzK6cwOCQxUSrn6P bnNUqkHPJaSArWO2gefItDG 1cPME8XYstQWVNVFKbMFeoU PJrXOA9AIsvChtbIEA9mcEf ZXWry8VjHDyjN3mpI25zxIr oeTu8cCNdaFlolPUrfRTgNU GnnqQ4y2W7NHAwd9ApdmrtH HBsYWluXGYyXGZzMjJcbGFu ZzEwMzNcaGljaFxmMlxkYmN yBPJsSSucH5jxPbIpPwRnIw fjAIH3yQ== Gross assessment was [facility] performed at ([facility], code = 2777) Department of Pathology, [address] [place] [address], Technical component [facility] was performed at ([facility], code = 2778) Department of Pathology, [address] [place] [address], Professional component [facility] was performed at ([facility], code = 2779) Department of Pathology, [address] [place] [address], [facility] [id number] 07:24:40 Test Item Value Reference Range Interpretation Comments Case Report (test code Surgical Pathology = 104) Report Case: [id number] Authorizing Provider: Duran Wylie MD Collected: 09/09/2022 05:13 PM Ordering Location: [facility] PERI[facility]ATIVE Received: 09/10/2022 11:48 AM SERVICES Pathologist: Ada Locke MD Specimen: Mass, Left renal mass DIAGNOSIS (test code = z0eedZCmWFXdh3ayCZCdvDG 3220) uZzEwMzNcZnRuYmpcdWMxIH tccnRmMVxlcGljOTYwMlxhb fNvPNFguUQtN1CiqxyxAShx CW1tMI6beBorqSCbmCYmEOR dIpIpv5zzc523iJMrn0nfXZ RIajtufLe6mIgfC96uh3X6Z oswU21ukCGmXWK3KCFeWWNm iVIuMWCvMNH7SGBcmWVmZ5t cDFCtLQ2nprmvETteHZyxLX GicPU3ZYGcbDGbH2OqUAEzB YrsVYNrwir7CrLvFa4jxXGd eTcyMFxwYXJkXHBsYWluXGZ nZfTeT0rEQhLLLASKKNONOA BCSICKJILDFR4DWPiADZXSY 37SOwreYCMihGUxUQ0mE2mC SDAnP6PJXOUEUJ6KARTAJBw RJBHFGnGRPj7HYAwuV3sHR3 sQGUXkK2OMWDRbO6fsRUEke JLePX3lLKJPQ1GwB1yaCInj VM68PWTGWJsANsIRSGFPKNN ALo7ADeCUPS1COgAHO29pFL Bkgkx9WFBlJSCQPP3LLxTIB Q6NAAMPYWYQHPcPTF9DEImp UAJlkPWbJG0jDc9uL3FPQ40 NQVRPSUQgRkVBVFVSRVMgSU RFTlRJRklFRFxwYXJcdGFiI Y2eRg9gSuoSDtADFXHcKrUP VFVSRVMgSURFTlRJRklFRFx yDKKykSEwRD1sFa8jOFjIPK rRWcPNG2QGMBGsDV5JZBSFL 04gSURFTlRJRklFRFxwYXJc dOWjAR6mQWOLY8KkEWEPWWV xBAuDQSLJXlUUA9eYHLDTLU IMYraLM4VDAG8AFunKBzjmV BTtzTLsRS9sL1MUIuHhMc0Q UY8FJ6UQXOUHANFoA1iYZrO PFOgHENalOiNJBCIDO4kSMo 7PNXBgW7pLARJZBHoQHFDzc w70QFA6JsPjf2C4LPD6FXMd UEXaw4zuRIRhrJIpZsGtQvX cZnRuYmpcdWMxXGRlZmYwe1 enw029bXPqr0xdATXrTkV3m CUnJCKtuHYlC609TRVmICkl h4nnu3CwRTNiaCXbw7X5OCA ApyzgdZr8yRhhW25eu0D1Dr xuP1uvJMRrYYSsH6SiPV1fO FDxPgi7AAZ8MVE3UGJuVFBp N6CvVU3pSDKjgWTmWIv2m0u clZhyVMErTXK2k3qeNLqqzn MpFZ4wyq2ckKw6u0pvdxPuI EGcNGJonUTDBADqH4CrvDtx Md9peYt5eKpbPwevEVF9Xnr 2WA1bqi25gxi6zLsyZAQgls udApN8DSvkCTCyugpvQYt3F IuaAUZtkIH4RRXwmTIfD7Fr ZAMvFS3lhtu5WFM0HPfbNMF lPeP4IRAxkDGkXGHmlQxrXZ fpg782KJV7UxGcNF2sG0Dik 2K3fK6gbWScZDJarZHeRtJf QSBkkf1zxVQoTQnyd5RxLXY 9nqR5rNXcwYSgNSKuLuP7MU ceTJ7rat15IGNyKPB3hs6nx JEheSldmtZjtPGjQVhzS8Hk KZZqg176JILuP4ZwWIPsp9X 8ggHmExZtKUOxaCE0vjY5VA EoRO9vlttbl3pgRWunGGswD WYvueJ1cuX3HYIasIIfU1Ch yG8cUNNtQL6izxelk0nxPAW 5OZnhCASaOPZ2IzOvFCOmd2 Kxnvb7WtJbz0EloXNuOMgnO 64qf806TLTjxrTcJ8fevZGk vmffeKTjbnbuWFdnzbV4ESV eHPhcwmnbCXBmNKwnA4nsDb IsOWGzmNxvWGera8DxYMVhG KDjCvXryGFhEVAhCwn0BJAz nSEdVNXaShRkG6hlosnoVgJ OLWUtq7tgG5ahnBJCvUXtL4 QgUGhvbmUgTGluZTogNzEzL Eo1RC31TtUnTQGwmk77 SYNOPTIC REPORT (test KIDNEY: code = 5765) NephrectomyKIDNEY: NEPHRECTOMY, PARTIAL OR RADICAL - All Rnlmxayge8lh Edition - Protocol posted: 02/11/2021 SPECIMEN Procedure: [...] Rare sclerotic glomeruli CPT Code(s) (test code o1vwjCWeWAKciDW4OdMxOYA = 3357) xd4bwm7TifGBmnFYeOMcazJ UaqhEvwc76eDZ4hU93JN4kE MOcTsD1TAKrvsV5Elb1DJTz BMSxqCEbT642z4tqv5yucbF vtYZ2aNmfPZCrtxniGfT1XB lyLWDczsfvCMz1DItmPVMym JK4CTMvkOGiB2EzETDlLU2x okk1SBM0UPhvVXYmEbX3TTI teENfESKiiJphFCkfx441BE J2VfUyGIIsopFxoQbweD6mP kEoXDA1SGDlN5buLUArECxd NDJccGFyfQ== CLINICAL HISTORY (test d1iweTPeJACwgNX5ZhShZNP code = 3356) tv6idv6FdpQBcmICuYYtuzX YnduQpbi41sPQ1aS06UB2fQ QRqLmR4EMAljfW2Adx5FGPv DYFtbNYvP584t3ovg5jgwlU vvWI2aTaeIBAfcqryLiH9RE ojLPMvvqqfATx2ZAbvTIKqn CS5DBZvoUPxV1OoSXYnJN5f dkl1XNN4DNglAVVwPnD3ISO cvDMbQOJbhAqxSDrcw586BM M2UhFlQJSxuzQbdQzneR1aZ uJmZFNVPU9umGJsTBHbKDAo cn0= SPECIMEN SOURCE (test d6yxxRGjVLIzrHJ3MfJtMIY code = 3377) xd0jaz7MilLPppCBcWGuclD EhcsInuf99hWB4gJ18XK0dD ICtOrV9ETTscbO2Vsk7IDIm MCTeuYNvU065o3kwc5bknkH mlNF1yQhfIQQnfrxlUwE2UG rjGSEhzckpBTq7HWoqUPVcr PW7CBYywVQyI4PvDQIoEO4q paz3OUY7KTmaCIJaJmL6KVQ buDIiADVcgIqoMXqpt369QD I7FjIkCTPgprMkiNhsdY4nY wCbMALTTlLoS0bionZ2ORGd WYK8SIZfXQUpNUWnyo3= GROSS DESCRIPTION z6fuoMDhKJCcuHU5IzDeNVE (test code = ht8lop4OswUUwnILwORkcuD [id number]) JoewInsh39vDB1uO63XR3dU TToVzI6FCNzdzU8Cbj0BOPf OGTteUZhV476s3nsk3ewsfP ffAM0UQQiFJBmB0QoGT6dUV LmhQOsQ43ylQIhHEE7WVToU QOdiQCkXFFdDKH7QYZjqAAf I6jzUNAoLT3mqxpcUNsgURy gHTBuhNN3AZFoxROfU7JvLI AxLTipYAAnwss2EaOrAn5dg BEcqWayYHizTODri3ufAAYx uIMgWFF3JUsanEFcIDQhARW mDAh2UENmJGzowWFeOJ3yfP cjKfmjiKrqg6PgsBUaKNnwV ULlHVFcEFdvNPStL6DYZCGj DhqrLaY3VuKcIBo7RHcnI0S ZHXKcVGTfDyR3KakgYzA4QO y6SBKFXi7cWmR8XDOtHYw5D QM5JUFjBInjqOKvDFujLizh BIefPLJwrGPhFLziqyN4CWT rJWnvRRObFlNcGN4oSOWtxa 2uiWHgIUPoMdWvGsHeHOc6A MDcTmRcy4lyQVaqKhVwSRDi k6k4fBZ1eLRoiFR5wLMaaVx eAL2mxRSfQU9QLhGeyiWmM2 KcBDNmtMwlAaVmMDe8W5hvH bRoqAMovVUmHA3clEYbKYXd ONZbGZv1ADQoVWNnTpc4XLl nOOSeKFEhVYG1GROnV8CrLI bxMYYaHXPuZW90MYilNi71P YuaFs54MYqqOaElX83xnKNh YY5hDUJjTHPjcgZeK1ZlgZT zcLukeDDxMPNgirHvqS3ipZ K8qEYkUUGrx0aojrsrlTKsd jXdPA3ggT00MI6lKYMtdoap WPHmlxmbGCZpuVRrOQ4wFNq iLL5fKLtqLv49KRpiKXBdeC EdCCWsH4Dds45yxxucwoA1K BOvtdJxRVyxlEnjL5paW3Bg m6EmuERpFNS9OL4ldPwhjeM ci4MkgHt7UEsezH3ctammI7 xqKU6bo7Qok9hcD1dqjSEoR TChqs36eN5vkDHwpRS5jVYl u2JeLFPreDuoYAJwBEInQFL nuQSzUBnwk1CzN7SsUPHmIS U1TORdAFG8YMXuSTsmXGEbQ ZWbgVBvNAF5mPQvdsxsbPpi GTPfjcNtV7a4vRYhEJ1zqbs criUtomPqB82oEIBej6o2qY hxFCAnGMPydEDyBcA8pYMgE 7Olh0GgIUghaPGpceMkfdJf sg7qn1v7ABSupfSjqyYdVMJ vIHRoZSBraWRuZXkuICBUaG GnMPRamoXlgI5fwHEpBJYyX F7ozsUxlK8xrpJlrCGbLKQo JG1psGXlBIJmywBgwV5eJdA bNQgaYU4ix5CbhVLie7WuaA c4hOTdVXDydNvdPVz5PVihI JEgc2UclLXkSKIwWGVwXo0f bLxvNTgpMNVlJU6gPTEhDHO 6RUzaOOAmMnh5VPjbHPSwEZ 2hnIcfHXfyoROwL8feBESfq pNJdVFdyuITLKCcjBiuP9Ff cmluZXBocmljIGZhdCBtYXJ dyQ3twVGyFAMudqHjBRLkER XtMRhiAGUMWHYzuYMvf7omd Kfym3QbnWAtYP69BSFtgDWu PCK4RP8yoZfrINQ0 MICROSCOPIC b4vggAJkHRTpoBN9VnVgDJN DESCRIPTION (test code bs1goo8HpwPYyfAOkPGhmgI = 3371) FeaxHboy27uDK2iO14NW0gW ALpNkQ3VUKumnR7Tnp4UKJx ZABtvBGpG431a9hmq3ecjfS luUC7oIcoGHIononyBmA7LQ qrUQQjrgzyTLx5KOtkLDFxv ZJ4KAMqbQYjS1IwXNThJY6a axc5KMH1PRabCDYgInA8YTZ hfPPnFCFfgObyEObqy504VV P7OrWuAFJkhdSnyHhliK2wX nTrKMCKGuN5HSnaixFkLCQa m0BnUPMss2t1cOEmoMXci0H jiLI5SFQmq585es5yUQOfaj AspWovFAJ7AErfEEzhDOfbz FOtyWRaaPDaGRYnJZ8oN3N7 tORmTzVCnRx5pFQrSICuZCA dhWGpr2LzdBhwMCExgxDaQ6 g1eBVyTK5iavkltoC0PWNzF JO4DI8sxcEbKXonVCJzSDJp bHMpLCBhbmQgdGhlIHZlcnk mVv6tSQtjpAOdWbF8pyA0xH tcXH0zxywrbd3aJKSjvl7= SPECIAL STUDIES (test u6utnLZrYPNvs1ebHYLdiEE code = 3376) uZzEwMzNcZnRuYmpcdWMxIH jcgoHcNXkok0QpF3DqIxGpP FxhbnNpXGRlZmxhbmcxMDMz BWB8noXmXXImROnjPYZyEWo xJy1dfZSspCepHaFsSSJsg0 nmvpZMbrtlaEl3s6juRHToZ zW3cXKjDTsnF5bopgCprDIg I2ZmiBCvbFb7d8gpPbBzFhJ 5mBKnEHxhP0pnpjParANaZQ SsWDt0uU33CRZhtM5btXWrI WgvleVzZvF6YWdmCYNhCgS7 HCSbvZUrHWPtW7kaHNObRIk rMUVmGWuzgAGwIGC0pLipf1 Z5yBHoiVOabGbvXzJmRxYtW hBSo1CxPHt9nYmvC6LtFHXc TwJ6eWVmIATeBQivPEXiENB bwgG8sYuhabKcd23ysONpRM YwXGZzMjBcbGkwXHJpMCBDb 8PccQtxXVE2yVv2mFejHlrv BIL1Gjx2KU1xru18mnz4xFc zXCTvsukaYdR7LYkrCUCexb quELv4XDhfOVGvdLS0EBMcu MCgI5OpJGPdSN1uonl6TBQ1 BUehQEPtWcM5CAEjmSEkFHP jtTwfUJrgw509SIJ8KkBqSZ 6jC0Qnz1X2uX9avCEvGBFvv QGcScAgSLQfwu3orINhNKrh f3YfKIU8bqC0eBAwyJQqLYM hOH64Reydx1YiFgwmr4JaU6 4zoQO1WTqte5qrUB6nKlW8e dXcDFhcy1qxhA8fAvQ1JPbo OZ3dEF3pABWhtL0idvvxEYZ nYnJkcmhlYWRccGdicmRyZm 8izNooYNT5FZcpW0lekT9xL yW7QXdoB6qxeR6nSRs9LEpg sAB4IPPniN7iML6vnxprq3m eLMycBDunDRNhbcF8rhI2EK FjdGFmB2PffU8oRICoBM4ip bcxt2ysPDN7NFbzBTAsIQO2 TtLfIKYog1Nchgq1WoSnv0U plTWxCJaaM21zp240ENIwgg ZfG0nbwWFnzxznpTKqagrpN IowdiV4VWKgVBKsIHjrETYq XGZzMjJcbGFuZzEwMzNcaGl jaFxmMVxkYmNoXGYxXGxvY2 lrCnEhW1LdQOKwBuGxKOmdU DdxlCRatFZbzDK6mK2oFQ5s FMFhwPMtJ5EvDSXdfxOqxGX wUHX8sHAplCPaXJ9cTQopuX Heb3qyz3RpX5dwkTjfhAW5V G4kOHGyOAKlFVhva6PutB1r LlxwbGFpblxmMVxmczIyXGx sreprEJNxQMpxB3ddCkLwCJ AanKbaVTbkz3QiYTKyOUQdB qamyuIdVWb7sdIrLJYczgbe JIOvfQepuC2gCbAxWxBpMbu cJE1tJYUdQ6cwlRYlJXSwII FuZ3yyOkIwcY3hkXsrZKazV iSsTcLwYeZXa003ld5jNEQu aMNowwYNjEVtaD5sYInuNOv uNHfuhAVpHRfls4wtVSYba5 c5aQRtNMSunyEdh9jxGZviy gTrFJIpgHDohJEfKFQfv27s REuzmMucrMykLMQiv9VnpHt ri0HhSfRaHHqib2AwU51fcU JvbCBzbGlkZXMgcnVuIGFsb 42tk6koVIHiCbW7bJIchPM1 lSEwsDHvn7YtoSnyNDWgn3f eANSwhi5pbtqtpOXcd0MofF 5pbmcuIEludGVybmFsIHBvc 7n7ePUhNBGeYAZtSYunwJt6 YAQnw070ee7mnrC7pNNkBVP 2YWlsYWJsZSBhcmUgZXZhbH VhdGVkXHBsYWluXGYxXGZzM jJcbGFuZzEwMzNcaGljaFxm OIepKbTvCZOkKAlqE6ehQnA xE1BzZOQrZkLxxBMvD7rwjN FyXHBsYWluXGYxXGZzMjJcb GFuZzEwMzNcaGljaFxmMVxk JkWcKDPvDSvyG4cxRqEnW2F yXGZzMjIgIFxwbGFpblxmMV xmczIyXGxhbmcxMDMzXGhpY 5tlWdBjPVHjvBovXPmch7Bg MZUaITNrIeaeefVgBZr9dnM oXHBhclxwbGFpblxmMVxmcz XfCPjymdtiRQPoWDynK3raV dLwNDMgdWxhBIvdv6CsEENz MZFpMidmsxAdGFzrxTGxj4x tx6JtL6yszOqefHN3RXCtD6 vutGSfpGS4ISY5qC0gOViez aFsIREnf4WlKYJqRRIkTsR4 dZ7wCZD4TdPUlNrzYRUgEVn uXGYxXGZzMjJcbGFuZzEwMz NcaGljaFxmMVxkYmNoXGYxX HpwO5jqThYdZ1XxEIWnIeAg eScqSOwvEKf1OemxeKAetkh mMVxmczIyXGxhbmcxMDMzXG zeD7beMxGuCNFbrTpyJUdjd 2NoXGYxXGNmMlxmczIyIHMg WQQclVPqeVQUGP18DIFnKOQ pdOwlfL9xeTHKBEPuyoH7x2 W4GQisIIHbLMk1HWhxfxLfU RDloV8nXEVvCA3tOIh9pvCb RRPnw7DfNH0hJXBnlUGwGKG 7DXUxk5NxL0Tmz7HbBXCwEI Mfud4dikBdDaVIiZYrLGQpt f11DJXlDL2mN8qpSVQwWRNg pfCsmUUoa8ObFUDsgJV4lMY wQL3QHiOLp96bUEEdGMQWnk IqUISvwTrulPU1ohY6bE3wF iBUaGUgRkRBIGhhcyBkZXRl od1ttcEaYXKrJVUwk1BxfTC ylTKxpfKnD3Rju9BtLKCxcl 03OQqxwVSjoi91HQ5dB1Oqj 2GgoL9lNWbzAZIat5AzeWOr qJBzLQAac4VeS6kyjonnGFd qnXJnjG1wPPOvDBh9URJfl0 GcGNKwj4TxEkSksnUoFWQjF PMkWENciR27GTB9sBpqhWua pdRmNT7pBTEpofJaFHSnMGI etW2zQSofiqPyABMzzbF3s7 Z0SFdsIKYrpuEaNpntIPA4v tFezeE3zTLmL8rcsysdDGkv YYVur8FjtP5dvTCDfJPeo9Y ocOCzeIXYwDUbMM1kueUlXU 4pQKH7IRthSPETCXBtNNvkV FDhODT0QKnbAqejXNT0plFp REFxl0NuEAczQ2ltW39vqDh jnWt6gYUoxKgtjFPpvJGtXU KhunG0r6O5XCMqx9JiutjcA HBsYWluXGYyXGZzMjJcbGFu ZzEwMzNcaGljaFxmMlxkYmN cKZEyONycN3syPsQbAvWhHd ztAAZ7iO== Gross assessment was [facility] performed at ([facility], code = 2777) Department of Pathology, [address] [place] [address], Technical component [facility] was performed at ([facility], code = 2778) Department of Pathology, [address] [place] [address], Professional component [facility] was performed at ([facility], code = 2779) Department of Pathology, [address] [place] [address], [facility] [id number] 07:24:40Surgical Pathology Report Case: [id number] Authorizing Provider: Duran Wylie MD Collected: 09/09/2022 05:13 PM Ordering Location: [facility] PERIOPERATIVE Received: 09/10/2022 11:48 AM SERVICES Pathologist: Ada Locke MD Specimen: Mass, Left renal mass KIDNEY, LEFT, PARTIAL NEPHRECTOMY: - CLEAR CELL RENAL CELL CARCINOMA, WHO/ISUP GRADE 3 - TUMOR SIZE: 4.5 CM (GREATEST GROSS DIMENSION) - TUMORLIMITED TO KIDNEY - NO SARCOMATOID FEATURES IDENTIFIED - NO RHABDOID FEATURES IDENTIFIED - NO LYMPHOVASCULAR INVASION IDENTIFIED - TUMOR ABUTS THE PARENCHYMAL SURGICAL MARGIN - SCANT NON NEOPLASTIC KIDNEY WITH RARE SCLEROTIC GLOMERULI Signing Pathologist Direct Phone Line: [phone] signed by Ada Locke MD on 09/28/2022 at 7:24 AMPreliminary result electronically signed by Ada Locke MD on 09/25/2022 at 3:11 PMKIDNEY: NephrectomyKIDNEY: NEPHRECTOMY, PARTIAL OR RADICAL - All Qovjnproy0gj Edition - Protocol posted: 02/11/2021PECIMEN Procedure: Partial nephrectomy Specimen Laterality: Left TUMOR Tumor Focality: Unifocal Tumor Size: Greatest Dimension (Centimeters): 4.5 cm 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 Histologic Grade (WHO / ISUP): G3 (nucleoli conspicuous and eosinophilic at 100x magnification) Tumor Extent: Limited to kidney Sarcomatoid Features: Not identified Rhabdoid Features: Not identified Tumor Necrosis: Not identified Lymphovascular Invasion: Not i dentified MARGINS Margin Status: Tumor abuts the parenchmyal [...] Findings in Nonneoplastic Kidney: Rare sclerotic glomeruli [id number] massA. Kidney, left, massA. Mass.Received fresh, labeled [...] and the stain is interpreted as negative. Mu ltiple levels of the parenchymal margin were examined (21 levels), and the very focally abuts this margin. The interpretation of this case included the use of immunohistochemistry or special stains.Control Slides Examined: In-house known positive controls were evaluated along with the test tissue. These control slides run alongside of the patients sample show appropriate staining. Internal positive and negative controls when available are evaluated Immunohistochemistry technical testing was performed at [facility], Pathology Laboratory where it was developed and its performance characteristics were determined. It has not been cleared or approved by the U.S. Food and Drug Admin istration. The FDA has determined that such clearance or approval is not necessary. The test is usedfor clinical purposes. It should not be regarded as investigational or for research. This laboratoryis certified under the Clinical Laboratory Improvement Amendments of 1988 (CLIA-88) as qualified to perform high complexity clinical laboratory testing.[facility], Department of Pathology, [address] [place] [address], [facility] of [facility]ology, [address] [place] [address], [facility], Department of [facility]ology, [address] [place] [address], JKLIK [employer] [id number] 06:27:23 Test Item Value Reference Range Interpretation [...] high >=90 G2 Mildly decreased 60-89 G3a Mild ly to moderately 45-5 9 G3b Moderately to s everely 30-44 G4 Severl y decreased 15-29 G5 Kidney failure <15Reported eGF R is based on the CKD-EPI 2021 equation that d oes not use a race coefficientEsti mated GFR is not as accur ate as Creatinine Milana alberto in predicting glom erular filtration rate . Estimated GFR is not appl icable for dialysis patien ts Gas Utility Worker ID - REYNA GCBC W/PLT COUNT & AUTO [id number] 06:20:00 Test Item Value Reference Range Interpretation [...] = 2801) CBC W/PLT COUNT & AUTO [id number] 22:12:52 Test Item Value Reference Range Interpretation [...] PERCENT (BEAKER) (test code = 2801) POC-Glucose [id number] 16:16:42 Test Item Value Reference Range Interpretation Comments POC-Glucose Meter (test 172 mg/dL 70-110 H : TE STED AT [facility] code = 1538) [address] [place] [address], 770 30: Gas Utility Worker/Techni david ID = [id number] for LAINEY, KEYAIRA Lab Interpretation (test Abnormal code = 52400-6) [facility]-Glucose [id number] 16:16:42 Test Item Value Reference Range Interpretation Comments POC-Glucose Meter (test 172 mg/dL 70-110 H : TE STED AT [facility] code = 1538) [address] [place] [address], 770 30: Gas Utility Worker/Techni david ID = [id number] for LAINEY, KEYAIRA Lab Interpretation (test Abnormal code = 55292-0) [facility] [id number] 16:16:42 Test Item Value Reference Range Interpretation Comments POC-Glucose Meter (test 172 mg/dL 70-110 H : TE STED AT [facility] code = 1538) [address] [place] [address], 770 30: Gas Utility Worker/Techni david ID = [id number] for LAINEY, KEYAIRA Lab Interpretation (test Abnormal code = 96578-8) [facility] [id number] 16:16:42 Test Item Value Reference Range Interpretation Comments POC-Glucose Meter (test 172 mg/dL 70-110 H : TE STED AT [facility] code = 1538) [address] [place] [address], 770 30: Gas Utility Worker/Techni david ID = [id number] for LAINEY, KEYAIRA Lab Interpretation (test Abnormal code = 83413-1) [facility] [id number] 16:16:42 Test Item Value Reference Range Interpretation Comments POC-GLUCOSE METER 172 mg/dL 70-110 H : TESTED A T [facility] 6720 (BEAKER) (test code = HALLEY R [facility], 1538) [address]: Gas Utility Worker/Techni david ID = [id number] for DA YUMI, KEYAIRA POCT-GLUCOSE [id number] 12:05:01 Test Item Value Reference Range Interpretation Comments POC-GLUCOSE METER 209 mg/dL 70-110 H : TESTED A T [facility] 6720 (BEAKER) (test code = HALLEY Mathe[place], 1538) [address]: Gas Utility Worker/Techni david ID = [id number] for DA YUMI, KEYAIRA POCT-GLUCOSE [id number] 08:37:28 Test Item Value Reference Range Interpretation Comments POC-GLUCOSE METER 213 mg/dL 70-110 H : TESTED A T [facility] 6720 (BEAKER) (test code = HALLEY Mathew [facility], 1538) [address]: Gas Utility Worker/Techni david ID = [id number] for DA YUMI, KEYAIRA BASIC METABOLIC [id number] 06:35:17 Test Item Value Reference Range Interpretation [...] eGF R is based on the CKD-EPI 2021 equation that d oes not use a race coefficientEsti mated GFR is not as accur ate as Creatinine Milana dolly in predicting glom erular filtration rate . Estimated GFR is not appl icable for dialysis patien ts Gas Utility Worker ID - RAKAN WHEMOGLOBIN AND [id number] 05:31:55 Test Item Value Reference Range Interpretation Comments HEMOGLOBIN (BEAKER) (test code = 12.1 GM/DL 11.2-15.7 410) HEMATOCRIT (BEAKER) (test code = 34.9 % 34.1-44.9 411) Gas Utility Worker ID - [id number]-GLUCOSE [id number] 19:34:37 Test Item Value Reference Range Interpretation Comments POC-GLUCOSE METER 185 mg/dL 70-110 H : TESTED A T [facility] 6720 (BEAKER) (test code = HALLEY Mathe[place], 1538) [address]: Gas Utility Worker/Techni david ID = [id number] for SA KYRIE CASTILLO BASIC METABOLIC [id number] 19:07:55 Test Item Value Reference Range Interpretation [...] not appl icable for dialysis patien ts Gas Utility Worker ID - ADMINHEMOGLOBIN AND [id number] 18:54:51 Test Item Value Reference Range Interpretation Comments HEMOGLOBIN (BEAKER) (test code = 13.3 GM/DL 11.2-15.7 410) HEMATOCRIT (BEAKER) (test code = 38.4 % 34.1-44.9 411) Gas Utility Worker ID - [id number] 12:24:00 Test Item Value Reference Range Interpretation Comments CROSSMATCH (test code = 2264) COMPATIBLE Unit ABO (test code = O Pos [id number]) UNIT NUMBER (test code = [id number] 934-0) Status (test code = 9279780) READY Blood Bank Product (test code RED BLOOD CELLS = 2263) PRODUCT CODE (test code = D2766S93 933-2) [facility]2023-01-26 12:24:00 Test Item Value Reference Range Interpretation Comments CROSSMATCH (test code = 2264) COMPATIBLE Unit ABO (test code = O Pos [id number]) UNIT NUMBER (test code = [id number] 934-0) Status (test code = 7111138) READY Blood Bank Product (test code RED BLOOD CELLS = 2263) PRODUCT CODE (test code = F3754A86 933-2) [facility] [id number] 12:24:00 Test Item Value Reference Range Interpretation Comments CROSSMATCH (test code = 2264) COMPATIBLE Unit ABO (test code = O Pos [id number]) UNIT NUMBER (test code = [id number] 934-0) Status (test code = 2465733) READY Blood Bank Product (test code RED BLOOD CELLS = 2263) PRODUCT CODE (test code = P6157G68 933-2) [facility] [id number] 12:24:00 Test Item Value Reference Range Interpretation Comments CROSSMATCH (test code = 2264) COMPATIBLE Unit ABO (test code = O Pos [id number]) UNIT NUMBER (test code = [id number] 934-0) Status (test code = 7922738) READY Blood Bank Product (test code RED BLOOD CELLS = 2263) PRODUCT CODE (test code = [id number] 933-2) [id number] 11:32:46 Test Item Value Reference Range Interpretation Comments POC-GLUCOSE METER 137 mg/dL 70-110 H : TESTED A T [facility] 6720 (BEAKER) (test code = [place], 1538) [address]: Gas Utility Worker/Techni david ID = [id number] for LUIS DANIEL MEDINA POCT [id number] 14:43:44 Test Item Value Reference Range Interpretation Comments POCT Creatinine (test code = 0.7 mg/dL 0.5-1.6 [id number]) Lab Interpretation (test code = Normal 35496-5) [facility]
[2023-02-01] MEDS ORDERED: METOPROLOL TARTRATE 5 MG/5 ML INJ IV ONE (09:42)
[2023-02-01] MEDS ORDERED: CLOPIDOGREL 75 MG TABLET ONE (09:42)
[2023-02-01 09:47] LABS: Absolute Lymphocytes (CBC) 2.2 K/uL (0.7-4.9); Hematocrit 37.9 % (36.0-45.0); MCV 93.1 fL (80-100); MPV 8.5 fL (7.6-11.3); RBC Red Blood Cell Count 4.07 M/uL (3.86-4.86)
[2023-02-01 10:05] LABS: Protime INR 1.01
[2023-02-01 10:07] LABS: Albumin 3.5 g/dL (3.4-5.0); Bilirubin Direct 0.2 mg/dL (0-0.2); Bilirubin Indirect, Calculated 0.4 mg/dL (0.2-0.8); Bilirubin Total 0.6 mg/dL (0.2-1.0); Magnesium 1.9 mg/dL (1.6-2.4); Potassium 3.5 mEq/L (3.5-5.1); Protein, Total 6.9 g/dL (6.4-8.2)
--- NOTE | 2023-02-01 10:19 | RAD REPORT ---
EXAM DESCRIPTION: CT - Head Brain Wo Cont - 02/01/2023 9:48 am CLINICAL HISTORY: DIZZINESS COMPARISON: Head Brain Wo Cont dated 12/13/2022; Head Brain Wo Cont dated 08/05/2022 TECHNIQUE: Noncontrast head CT images ad were obtained without IV contrast. Multiplanar reformats we re generated and reviewed. All CT scans are performed using dose optimization technique as appropriate and may include automated exposure control or mA/KV adjustment according to patient size. FINDINGS: No intracranial hemorrhage, mass, or edema. Midline structures are unremarkable, apart fro m stable changes of partially empty sella, nonspecific. Normal ventricular caliber for age. Barrera-white matter differentiation is preserved, without evidence of acute infarct. Linear right basal ganglia focus of hypoattenuation is stable, may relate to a prominent perivascular space. No abnorma l extra-axial fluid collections. Mastoid air cells and visualized portions of the paranasal sinuses are clear. No acute bony findings. IMPRESSION: No evidence of an acute intracranial process. Stable chronic findings as above.
--- NOTE | 2023-02-01 10:26 | EDPHYS ---
Physician Documentation [facility] Name: Katya Hinojosa Age: 72 yrs Sex: Female : 1950 Arrival Date: 02/01/2023 Time: 09:13 Bed 2 Private MD: ED Physician Fan Rojas HPI: 02/01 16:57 This 72 yrs old Female presents to ER via Ambulatory with complaints of kdr Dizziness. 16:58 Patient complains of dizziness and weakness. She has felt poorly since yesterday. kdr Patient also complained of chest pain off and on yesterday. Today she does not have any chest pain but just generally feels weak and lightheaded. Patient otherwise has no focal complaint.. Onset: The symptoms/episode began/occurred yesterday. Severity of symptoms: At their worst the symptoms were in the emergency department the symptoms. The patient has not experienced similar symptoms in the past. The patient has not recently seen a physician. Historical: - Allergies: 09:26 No Known Drug Allergies; ll1 - PMHx: 09:26 Diabetes - NIDDM; High Cholesterol; Hypertension; Hypothyroidism; ll1 - Immunization history:: Client reports receiving the 2nd dose of the Covid vaccine. - Social history:: Smoking status: Patient denies any tobacco usage or history of. ROS: 16:58 Constitutional: Negative for fever, chills, and weight loss, Eyes: Negative for injury, kdr pain, redness, and discharge, ENT: Negative for injury, pain, and discharge, Neck: Negative for injury, pain, and swelling, Respiratory: Negative for shortness of breath, cough, wheezing, and pleuritic chest pain, Abdomen/GI: Negative for abdominal pain, nausea, vomiting, diarrhea, and constipation, Back: Negative for injury and pain, : Negative for injury, bleeding, discharge, and swelling, MS/Extremity: Negative for injury and deformity, Skin: Negative for injury, rash, and discoloration, Psych: Negative for depression, anxiety, suicide ideation, homicidal ideation, and hallucinations, Allergy/Immunology: Negative for hives, rash, and allergies, Endocrine: Negative for neck swelling, polydipsia, polyuria, polyphagia, and marked weight changes, Hematologic/Lymphatic: Negative for swollen nodes, abnormal bleeding, and unusual bruising. 16:58 Cardiovascular: Positive for chest pain, Negative for edema, orthopnea, palpitations, paroxysmal nocturnal dyspnea. 16:58 Neuro: Positive for weakness, Negative for altered mental status, dizziness, gait disturbance, headache, hearing loss, numbness, seizure activity, speech changes, syncope, near syncope, tingling, tinnitus, tremor, visual changes. Exam: 16:58 Constitutional: This is a well developed, well nourished patient who is awake, alert, kdr and in no acute distress. Head/Face: Normocephalic, atraumatic. Eyes: Pupils equal round and reactive to light, extra-ocular motions intact. Lids and lashes normal. Conjunctiva and sclera are non-icteric and not injected. Cornea within normal limits. Periorbital areas with no swelling, redness, or edema. Neck: Trachea midline, no thyromegaly or masses palpated, and no cervical lymphadenopathy. Supple, full range of motion without nuchal rigidity, or vertebral point tenderness. No Meningismus. Chest/axilla: Normal chest wall appearance and motion. Nontender with no deformity. No lesions are appreciated. Respiratory: Lungs have equal breath sounds bilaterally, clear to auscultation and percussion. No rales, rhonchi or wheezes noted. No increased work of breathing, no retractions or nasal flaring. Abdomen/GI: Soft, non-tender, with normal bowel sounds. No distension or tympany. No guarding or rebound. No evidence of tenderness throughout. Back: No spinal tenderness. No costovertebral tenderness. Full range of motion. Skin: Warm, dry with normal turgor. Normal color with no rashes, no lesions, and no evidence of cellulitis. MS/ Extremity: Pulses equal, no cyanosis. Neurovascular intact. Full, normal range of motion. Neuro: Awake and alert, GCS 15, oriented to person, place, time, and situation. Cranial nerves II-XII grossly intact. Motor strength 5/5 in all extremities. Sensory grossly intact. Cerebellar exam normal. Normal gait. Psych: Awake, alert, with orientation to person, place and time. Behavior, mood, and affect are within normal limits. 16:58 Cardiovascular: Rate: tachycardic, Rhythm: irregularly irregular, Pulses: no pulse deficits are appreciated, Heart sounds: normal, Edema: is not appreciated, JVD: is not appreciated. Vital Signs: 09:26 BP 131 / 106; Pulse 53; Resp 17; Temp 97.9; Pulse Ox 100% ; Weight 89.81 kg; Height 5 ll1 ft. 5 in. ; 10:30 BP 103 / 52; Pulse 97; Resp 19; Pulse Ox 98% ; bp 12:06 BP 112 / 84; Pulse 112; Resp 21 S; Pulse Ox 98% on R/A; aa5 09:26 Body Mass Index 32.95 (89.81 kg, 165.1 cm) ll1 MDM: 10:26 Patient medically screened. kdr 16:58 Data reviewed: vital signs, nurses notes, lab test result(s), radiologic studies. ED kdr course: Patient was noted to be in atrial fibrillation with rapid ventricular response. She responded well to beta-fannie control. She did not convert to sinus rhythm but did improve her rate. Pressure remained stable. Patient was otherwise unremarkable and nontoxic in the ED. She was admitted to the floor in good condition.. 02/01 09:31 Order name: Basic Metabolic Panel [facility] 02/01 09:31 Order name: CBC with Diff [facility] 02/01 09:31 Order name: LFT's kdr 02/01 09:31 Order name: Magnesium kdr 02/01 09:31 Order name: NT PRO-BNP [facility] 02/01 09:31 Order name: PT-INR [facility] 02/01 09:31 Order name: Troponin HS [facility] 02/01 11:37 Order name: Magnesium EDCT 02/01 11:37 Order name: Phosphorus EDCT 02/01 11:37 Order name: T4 Free EDCT 02/01 11:37 Order name: Thyroid Stimulating Hormone EDCT 02/01 11:37 Order name: Urinalysis w/ reflexes EDCT 02/01 11:37 Order name: Basic Metabolic Panel EDCT 02/01 11:37 Order name: Basic Metabolic Panel EDCT 02/01 11:37 Order name: CBC with Automated Diff EDMS 02/01 11:37 Order name: CBC with Automated Diff EDMS 02/01 11:37 Order name: Lipid Profile EDCT 02/01 11:37 Order name: Lipid Profile EDCT 02/01 09:31 Order name: XRAY Chest (1 view) kdr 02/01 09:32 Order name: CT Head Brain wo Cont kdr 02/01 09:31 Order name: EKG; Complete Time: 09:32 kdr 02/01 11:37 Order name: 60g Consistent Carbohydrate (ADA 1800/2000) EDCT 02/01 11:37 Order name: CONS Physician Consult EDCT 02/01 09:31 Order name: Cardiac monitoring; Complete Time: 09:35 kdr 02/01 09:31 Order name: EKG - Nurse/Tech; Complete Time: 09:35 kdr 02/01 09:31 Order name: IV Saline Lock; Complete Time: 09:35 kdr 02/01 09:32 Order name: Labs collected and sent; Complete Time: 09:35 kdr 02/01 09:32 Order name: O2 Per Protocol; Complete Time: 09:35 kdr 02/01 09:32 Order name: O2 Sat Monitoring; Complete Time: 09:35 kdr Administered Medications: 09:39 Drug: Metoprolol IVP 5 mg Route: IVP; Site: left forearm; bp 10:58 Follow up: Response: No adverse reaction bp 09:39 Drug: Clopidogrel PO 300 mg Route: PO; bp 10:58 Follow up: Response: No adverse reaction bp Disposition Summary: 02/01/23 10:26 Hospitalization Ordered Hospitalization Status: Observation kdr Provider: Dimitris Guerrier kdr Location: Telemetry/MedSurg (observation) kdr Condition: Fair kdr Problem: new kdr Symptoms: have improved kdr Bed/Room Type: Standard kdr Room Assignment: 203(02/01/23 12:26) dw Diagnosis - Unspecified atrial fibrillation kdr - Dizziness and giddiness kdr Forms: - Medication Reconciliation Form kdr - SBAR form kdr Signatures: Dispatcher [employer] [facility] Petra Dykes RN RN dw Fan Rojas MD MD kdr Tai Croft RN RN bp Lewis, Lynsay, RN RN ll1 Corrections: (The following items were deleted from the chart) 12:26 10:26 kdr dw
--- NOTE | 2023-02-01 10:26 | ER ---
Nurse's Notes [facility] Name: Katya Hinojosa Age: 72 yrs Sex: Female : 1950 Arrival Date: 02/01/2023 Time: 09:13 Bed 2 Private MD: Diagnosis: Unspecified atrial fibrillation;Dizziness and giddiness Presentation: 02/01 09:26 Chief complaint: Patient states: Dizziness, nausea, and weakness since yesterday. Some ll1 CP, none now. Coronavirus screen: Vaccine status: Patient reports receiving the 2nd dose of the covid vaccine. Client denies travel out of the [place] in the last 14 days. At this time, the client does not indicate any symptoms associated with coronavirus-19. Ebola Screen: Patient denies travel to an Ebola-affected area in the 21 days before illness onset. Initial Sepsis Screen: Does the patient meet any 2 criteria? No. Patient's initial sepsis screen is negative. Does the patient have a suspected source of infection? No. Patient's initial sepsis screen is negative. Risk Assessment: Do you want to hurt yourself or someone else? Patient reports no desire to harm self or others. Onset of symptoms was January 31, 2023. 09:26 Method Of Arrival: Ambulatory ll1 09:26 Acuity: AMAYA 3 ll1 Triage Assessment: 09:27 General: Appears uncomfortable, Behavior is calm, cooperative, appropriate for age. ll1 Pain: Denies pain. Neuro: Reports dizziness. GI: Reports nausea. Historical: - Allergies: 09:26 No Known Drug Allergies; ll1 - PMHx: :26 Diabetes - NIDDM; High Cholesterol; Hypertension; Hypothyroidism; ll1 - Immunization history:: Client reports receiving the 2nd dose of the Covid vaccine. - Social history:: Smoking status: Patient denies any tobacco usage or history of. Screenin:30 [facility] ED Fall Risk Assessment (Adult) History of falling in the last 3 months, bp including since admission No falls in past 3 months (0 pts). Abuse screen: Denies threats or abuse. Denies injuries from another. Nutritional screening: No deficits noted. Tuberculosis screening: No symptoms or risk factors identified. Assessment: 09:30 General: SEE TRIAGE NOTE. Cardiovascular: Rhythm is atrial fibrillation with rapid bp ventricular response. 10:30 Reassessment: Patient appears in no apparent distress at this time. ADMIT INITIATED bp Patient states symptoms have improved. 12:07 Reassessment: Patient appears in no apparent distress at this time. Patient is alert, bp oriented x 3, equal unlabored respirations, skin warm/dry/pink. 13:26 Reassessment: Patient is alert, oriented x 3, equal unlabored respirations, skin aa5 warm/dry/pink. Vital Signs: 09:26 BP 131 / 106; Pulse 53; Resp 17; Temp 97.9; Pulse Ox 100% ; Weight 89.81 kg; Height 5 ll1 ft. 5 in. ; 10:30 BP 103 / 52; Pulse 97; Resp 19; Pulse Ox 98% ; bp 12:06 BP 112 / 84; Pulse 112; Resp 21 S; Pulse Ox 98% on R/A; aa5 09:26 Body Mass Index 32.95 (89.81 kg, 165.1 cm) ll1 ED Course: 09:17 Patient arrived in ED. cc5 09:19 Arm band placed on Patient placed in an exam room, on a stretcher. aa5 09:21 Tai Croft, SEKOU is Primary Nurse. bp 09:24 Fan Rojas MD is Attending Physician. kdr 09:27 Triage completed. ll1 09:30 Patient has correct armband on for positive identification. Placed in gown. Bed in low bp position. Call light in reach. Side rails up X2. 09:35 Initial lab(s) drawn, by me, sent to lab. Inserted saline lock: 20 gauge in left cm10 forearm, using aseptic technique. Blood collected. 09:37 Basic Metabolic Panel Sent. cm10 09:37 CBC with Diff Sent. cm10 09:37 LFT's Sent. cm10 09:37 Magnesium Sent. cm10 09:37 NT PRO-BNP Sent. cm10 09:37 PT-INR Sent. cm10 09:37 Troponin HS Sent. cm10 09:50 CT Head Brain wo Cont In Process Unspecified. EDMS 10:21 XRAY Chest (1 view) In Process Unspecified. EDMS 10:24 Dimitris Guerrier MD is Hospitalizing Provider. kdr 13:27 No provider procedures requiring assistance completed. Patient admitted, IV remains in aa5 place. Administered Medications: 09:39 Drug: Metoprolol IVP 5 mg Route: IVP; Site: left forearm; bp 10:58 Follow up: Response: No adverse reaction bp 09:39 Drug: Clopidogrel PO 300 mg Route: PO; bp 10:58 Follow up: Response: No adverse reaction bp Medication: 13:27 VIS not applicable for this client. aa5 Outcome: 10:26 Decision to Hospitalize by Provider. kdr 13:26 Admitted to Tele accompanied by nurse, via wheelchair, with chart, Report called to aa5 Patricia 13:26 Condition: stable 13:26 Instructed on the need for admit, Demonstrated understanding of instructions. 13:27 Patient left the ED. aa5 Signatures: Dispatcher [employer] EDMS Fan Rojas MD MD kdr Amna Roman RN RN aa5 Tai Croft RN RN Xochitl Edmondson RN RN ll1 Areli Saha cc5 Areli Perez, RN RN cm10 Corrections: (The following items were deleted from the chart) 09:29 09:26 Chief complaint: Patient states: CP, back, dizzy, and nausea since yesterday. ll1 ll1 09:36 09:35 Inserted saline lock: 20 gauge in left forearm, using aseptic technique. Blood cm10 collected. cm10 09:36 09:35 Initial lab(s) drawn, by me, held in ED. cm10 cm10 10:56 10:30 Reassessment: Patient appears in no apparent distress at this time. Patient bp states symptoms have improved. bp 10:57 08:30 Patient has correct armband on for positive identification. Placed in gown. Bed bp in low position. Call light in reach. Side rails up X2. bp 10:57 08:30 General: SEE TRIAGE NOTE. bp bp 10:57 08:30 Cardiovascular: Rhythm is atrial fibrillation with rapid ventricular response bp bp 13:28 12:06 BP 112 / 84; Pulse 112bpm; Resp 31bpm; Pulse Ox 98%; bp aa5
--- NOTE | 2023-02-01 10:54 | RAD REPORT ---
EXAM DESCRIPTION: RADChest Single View02/01/2023 10:19 am CLINICAL HISTORY: dizziness;Chest pain COMPARISON: Chest Single View dated 12/13/2022; Chest Single View dated 08/05/2022; Chest Single View dated 02/11/2022; Chest Single View dated 09/22/2021 TECHNIQUE: Portable AP view of the chest. FINDINGS: The lungs are clear. No pneumothorax or effusion. The cardiomediastinal contours are unre markable. IMPRESSION: No acute cardiopulmonary process.
[2023-02-01] MEDS ORDERED: ONDANSETRON 4 MG/2 ML VIAL IV PRN (11:35)
[2023-02-01] MEDS ORDERED: GLUCAGON 1 MG/VIAL IM PRN (11:38)
[2023-02-01] MEDS ORDERED: D50W 25 GM/50 ML SYRINGE IV PRN (11:38)
--- NOTE | 2023-02-01 11:42 | P.HP ---
Certification for Inpatient Patient admitted to: Observation With expected LOS: <2 Midnights Patient will require the following post-hospital care: None Practitioner: I am a practitioner with admitting privileges, knowledge of patient current condition, hospital course, and medical plan of care. Services: Services provided to patient in accordance with Admission requirements found in Title 42 Section 412.3 of the Code of Federal Regulations Patient History Date of Service: 02/01/23 Reason for admission: Chest pain, Dizziness History of Present Illness: Patient is a 72-year-old female with a past medical history significant for hypothyroidism, hyperlipidemia, DM 2, obesity, hypertension who presents with complaint of chest pain and dizziness. Patient reported that she had chest pain all day yesterday. Patient indicated that chest pain is located in the substernal chest area and chest pain radiates to the back. Patient rated pain as 8/10 in severity and described pain as pressure in quality. Patient reported that this morning she started feeling dizzy. Patient reported associated signs and symptoms of nausea. Patient denies any other signs and symptoms. Symptoms are aggravated or relieved by nothing. Patient was brought to the hospital for medical evaluation. Allergies No Known Drug Allergies Allergy (Verified 12/22/20 14:55) Unknown Home Medications: Atorvastatin Calcium [Lipitor*] 20 mg PO BEDTIME 08/13/16 Levothyroxine Sodium [Levoxyl] 100 mcg PO DAILY #30 tablet 08/13/16 Metformin HCl [Glucophage] 1,000 mg PO BID 08/13/16 lisinopriL [Lisinopril] 10 mg PO DAILY #30 tablet 08/13/16 - Past Medical/Surgical History Diabetic: Yes -: HTN -: Hypothyroidism -: Diabetes mellitus -: Allergies -: Hyperlipidemia -: Thyroidectomy Psychosocial/ Personal History: She is single, has 5 children, she works in [employer] - Family History Mother -: Diabetes, Cancer - Social History Smoking Status: Never smoker Alcohol use: No CD- Drugs: No Caffeine use: Yes Place of Residence: Home Review of Systems General: Unremarkable Eyes: Unremarkable ENT: Unremarkable Respiratory: Unremarkable Cardiovascular: Chest Pain Gastrointestinal: Nausea Genitourinary: Unremarkable Musculoskeletal: Unremarkable Integumentary: Unremarkable Neurological: Other (Dizziness) Lymphatics: Unremarkable Physical Examination - Physical Exam General: Alert, In no apparent distress, Oriented x3, Cooperative HEENT: Atraumatic, PERRLA, Mucous membr. moist/pink, EOMI, Sclerae nonicteric Neck: Supple, 2+ carotid pulse no bruit, No LAD, Without JVD or thyroid abnormality Respiratory: Clear to auscultation bilaterally, Normal air movement Cardiovascular: No edema, Normal S1 S2, Irregular heart rate/rhythm Capillary refill: <2 Seconds Gastrointestinal: Normal bowel sounds, Soft and benign, Non-distended, No tenderness Musculoskeletal: No clubbing, No swelling, No tenderness Integumentary: No rashes, No significant lesion, No tenderness/swelling Neurological: Normal speech, Normal tone, Normal affect Lymphatics: No axilla or inguinal lymphadenopathy - Studies Laboratory Data (last 24 hrs) 02/01/23 09:36: PT 11.1, INR 1.01 02/01/23 09:36: WBC 8.90, Hgb 12.8, Hct 37.9, Plt Count 307 02/01/23 09:36: Sodium 143, Potassium 3.5, BUN 23 H, Creatinine 1.04 H, Glucose 323 H, Magnesium 1.9, Total Bilirubin 0.6, AST 25, ALT 40, Alkaline Phosphatase 85 Assessment and Plan - Plan --A-fib with RVR. Patient medicated with metoprolol IV. Cardiology consulted. Telemetry to monitor for any malignant arrhythmia. Continue metoprolol p.o. Will await further recommendation from software program manager. -- Chest pain. To rule out ACS. Echocardiogram pending to assess LV\valvular function and wall motion. Will trend troponin levels--currently negative. Telemetry to monitor any malignant arrhythmia. Further management per software program manager. Continue supportive care. -- DM2 with hyperglycemia. BS monitoring with sliding scale insulin, pre-meal insulin and Lantus. --Hyperlipidemia. Continue statin. --Hypertension. Stable. Continue home medication. --Hypothyroidism. Continue Synthroid. --Class I obesity. Likely secondary to excess calories intake. Patient counseled on weight reduction, diet and exercise therapy. --Dizziness. Likely secondary to A-fib. Carotid Doppler to rule out any carotid artery stenosis. Continue supportive care. --DVT prophylaxis with Lovenox subQ. Discharge Plan: Home Plan to discharge in: 48 Hours - Advance Directives Does patient have a Living Will: No Does patient have a Durable POA for Healthcare: No - Code Status/Comfort Care Code Status Assessed: Yes Physician Review: Patient Assessed, Agree with Above Assessment and Plan Critical Care: No
[2023-02-01] MEDS ORDERED: D10W 125 ML IV PRN (11:50)
[2023-02-01] MEDS: INSULIN LISPRO 100 UNIT/1 ML SQ SCH ×2 (12:00→18:22)
[2023-02-01 14:20] VITALS: BMI 32.9
[2023-02-01] MEDS: ACETAMINOPHEN 325 MG TABLET PO PRN (14:24)
[2023-02-01 16:05] LABS: Magnesium 1.9 mg/dL (1.6-2.4); Phosphorus 2.7 mg/dL (2.5-4.9); Thyroid Stimulating Hormone 2.04 uIU/mL (0.358-3.740)
[2023-02-01] MEDS ORDERED: INSULIN -REGULAR HUMAN 50 UNIT/0.5 ML ML SQ SCH (16:30)
[2023-02-01] MEDS: INSULIN -REGULAR HUMAN 50 UNIT/0.5 ML ML SQ SCH ×2 (16:30→20:22)
[2023-02-01] MEDS: METOPROLOL TAR 25 MG TAB PO SCH ×2 (18:00→19:25)
[2023-02-01 18:13] LABS: Specific Gravity 1.026 (1.005-1.030); Urine Bacteria None Seen /HPF (<20); Urine Bilirubin NEGATIVE (Negative); Urine Blood Negative (Negative); Urine Clarity Clear (Clear); Urine Color Light-Yellow (Yellow); Urine Glucose NEGATIVE (Negative); Urine Mucus Slight /HPF (None Seen); Urine Protein TRACE (Negative); Urine RBC <5 /HPF (None Seen); Urine Urobilinogen Normal (Normal); Urine pH 6.5 (5.0-7.0)
[2023-02-01] MEDS: ENOXAPARIN 100 MG/ML SYR SQ SCH (18:21)
[2023-02-01] MEDS: INSULIN GLARGINE 100 UNIT/ML SQ SCH (20:21)
[2023-02-01] MEDS: ATORVASTATIN 10 MG TAB PO SCH (20:23)
[2023-02-01] MEDS: AMITRIPTYLINE 25 MG TAB PO SCH (20:23)
[2023-02-01] MEDS ORDERED: POTASSIUM 25 MEQ EFFERV TAB PO ONE (21:00)
[2023-02-02 03:57] LABS: Absolute Lymphocytes (CBC) 3.5 K/uL (0.7-4.9); Hematocrit 35.1 % (36.0-45.0); Lymphocytes % 43.1 % (15.3-44.8); MCV 92.5 fL (80-100); MPV 8.5 fL (7.6-11.3)
[2023-02-02 04:11] LABS: Potassium 3.3 mEq/L (3.5-5.1)
[2023-02-02] MEDS: PANTOPRAZOLE 40MG TABLET PO SCH (05:46)
[2023-02-02] MEDS: ENOXAPARIN 100 MG/ML SYR SQ SCH ×2 (05:46→18:10)
[2023-02-02] MEDS: METOPROLOL TAR 25 MG TAB PO SCH ×2 (05:46→18:08)
[2023-02-02] MEDS: TRAMADOL HCL 50 MG TAB PO PRN ×2 (05:56→20:57)
[2023-02-02] MEDS ORDERED: POTASSIUM CL SA 10 MEQ TAB PO SCH (06:00)
[2023-02-02] MEDS ORDERED: LEVOTHYROXINE SOD 0.125 MG TAB PO SCH (06:30)
[2023-02-02] MEDS: INSULIN -REGULAR HUMAN 50 UNIT/0.5 ML ML SQ SCH ×4 (07:30→20:56)
--- NOTE | 2023-02-02 07:34 | RAD REPORT ---
EXAM DESCRIPTION: - CP - 02/02/2023 1:43 am CLINICAL HISTORY: Dizziness. Headache, drowsiness COMPARISON: Neck Angio dated 02/11/2022 TECHNIQUE: Real-time sonographic evaluation of both carotid systems was performed. Doppler interroga tion was performed with waveform tracing bilaterally. FINDINGS: Normal high resistance waveforms are noted in both external carotid arteries. The common c arotid arteries and internal carotid arteries show normal low resistance waveforms. Mild soft plaque is present in both carotid bulbs. Peak systolic and end diastolic velocity values an d the ICA/CCA ratios are in the non-hemodynamically significant range. Antegrade flow seen in both vertebral arteries. IMPRESSION: Mild soft plaque is present in both carotid bulbs. No evidence of a hemodynamically significant stenosis.
[2023-02-02] MEDS ORDERED: METOPROLOL TAR 25 MG TAB PO ONE (08:39)
[2023-02-02] MEDS ORDERED: ENOXAPARIN 40 MG/0.4 ML SQ SCH (09:00)
[2023-02-02] MEDS: INSULIN LISPRO 100 UNIT/1 ML SQ SCH ×3 (10:15→18:10)
[2023-02-02] MEDS: ASPIRIN 81 MG CHEWABLE TABLET PO SCH (10:16)
[2023-02-02] MEDS: SERTRALINE HCL 50 MG TAB PO SCH (10:16)
--- NOTE | 2023-02-02 12:18 | P.PN ---
Subjective Date of Service: 02/02/23 Chief Complaint: Chest pain, Dizziness Ms. Katya Hinojosa is Portuguese-speaking only. The following history was obtained with the assistance of [employer] certified Portuguese-Sinhala zipper cutter, Ms. Mosley, (ID# [id number]). No acute events overnight. This morning, she reports palpitations with associated chest tightness. EKG reveals atrial fibrillation with heart rates ranging from the 90s-120s. She denies shortness of breath, abdominal pain, nausea, or vomiting. Review of Systems 10-point ROS is otherwise unremarkable Cardiovascular: Chest Pain, Palpitations Physical Examination - Vital Signs Temperature: 98.3 F Blood Pressure: 139/78 Pulse: 99 Respirations: 16 Pulse Ox (%): 94 - Physical Exam General: Alert, In no apparent distress, Oriented x3 HEENT: Atraumatic, Sclerae nonicteric Neck: JVD not distended Respiratory: Clear to auscultation bilaterally, Normal air movement Cardiovascular: No edema, No rubs, No murmurs, Irregular heart rate/rhythm Gastrointestinal: Normal bowel sounds, Soft and benign, Non-distended, No tenderness, No rebound, No guarding Musculoskeletal: No clubbing Integumentary: No rashes Neurological: Normal gait, Normal affect Assessment And Plan - Plan # Paroxysmal Atrial Fibrillation with Rapid Ventricular Response # Hypertension Her [id number] = 4 (HTN=1, DM=1, Age 65-74=1, Sex=1), which warrants anticoagulation. - Evaluation thus far: - Troponin = 22.0 -> 16.4 -> 14.9 -> 12.5 - EKG = atrial fibrillation - CXR = "no acute cardiopulmonary process." - Potassium = 3.3, Magnesium = 1.9 - Target K> 4, Mg >2 - TSH = 2.04, Free T4 = 1.54 - BNP = 2,881 - Transthoracic echocardiogram ordered - Management plan: - Consulted Cardiology - recommendations appreciated - For rate control: - Started metoprolol tartrate (increased dose from 12.5 mg to 25 mg BID) - For anticoagulation: - Started enoxaparin # Hyperglycemia in Type II Diabetes Mellitus - Hgb A1c = 7.9 % - Continue home insulin regimen (glargine 20 units qHS, lispro 5 units TIDAC) - Correction scale insulin # 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 Stable chronic findings as above." - Carotid artery ultrasound = "mild soft plaque is present in both carotid bulbs. No evidence of a hemodynamically significant stenosis." # Hyperlipidemia - Continue home atorvastatin # Obesity - BMI 32.9 kg/m2 - Lifestyle modifications Dimitris Guerrier M.D.
--- NOTE | 2023-02-02 19:13 | EKG ---
Test Date: 2023-02-01 Test Time: 09:29:59 Track Superintendent: BP MEASUREMENT RESULTS: Intervals: Rate: 114 WA: QRSD: 82 QT: 268 QTc: 369 [place]: P: WA: QRS: -22 T: 252 INTERPRETIVE STATEMENTS: Atrial fibrillation Nonspecific T wave abnormality, probably digitalis effect Abnormal ECG Compared to ECG 12/13/2022 09:39:01 T-wave abnormality now present Sinus bradycardia no longer present Electronically Signed On 02-02-23 19:10:25 CDT by Keyshawn Rm
[2023-02-02] MEDS ORDERED: SOTALOL HCL 80 MG TAB PO ONE (20:45)
[2023-02-02] MEDS: AMITRIPTYLINE 25 MG TAB PO SCH (20:56)
[2023-02-02] MEDS: INSULIN GLARGINE 100 UNIT/ML SQ SCH (20:56)
[2023-02-02] MEDS: ATORVASTATIN 10 MG TAB PO SCH (20:56)
[2023-02-02] MEDS ORDERED: POTASSIUM 25 MEQ EFFERV TAB PO ONE (21:00)
[2023-02-03 03:58] LABS: Potassium 3.7 mEq/L (3.5-5.1)
[2023-02-03] MEDS: PANTOPRAZOLE 40MG TABLET PO SCH (05:30)
[2023-02-03] MEDS ORDERED: LEVOTHYROXINE SOD 0.1 MG TAB PO SCH (06:30)
[2023-02-03] MEDS: SOTALOL HCL 80 MG TAB PO SCH ×2 (06:30→17:08)
[2023-02-03] MEDS: ENOXAPARIN 100 MG/ML SYR SQ SCH ×2 (06:34→17:12)
--- NOTE | 2023-02-03 06:44 | ECHO ---
HEIGHT: 5 ft 5 in WEIGHT: 197 lb 15.954 oz DATE OF STUDY: 02/02/[address]: Geo Bustillos 2-DIMENSIONAL: YES M.MODE: YES DOPPLER: YES COLOR FLOW: YES TDS: PORTABLE: YES DEFINITY: BUBBLE STUDY: DIAGNOSIS: CHEST PAIN CARDIAC HISTORY: CATHERIZATION: SURGERY: PROSTHETIC VALVE: PACEMAKER: MEASUREMENTS (cm) DIASTOLIC (NORMALS) SYSTOLIC (NORMALS) IVSd 1.1 (0.6-1.2) LA Diam 3.4 (1.9-4.0) LVEF 60% LVIDd 4.8 (3.5-5.7) LVIDs 3.2 (2.0-3.5) %FS 32% LVPWd 1.2 (0.6-1.2) Ao Diam 3.0 (2.0-3.7) 2 DIMENSIONAL ASSESSMENT: RIGHT ATRIUM: NORMAL LEFT ATRIUM: ENLARGED RIGHT VENTRICLE: NORMAL LEFT VENTRICLE: NORMAL TRICUSPID VALVE: MILD TRICUSPID REGURGITATION MITRAL VALVE: NORMAL PULMONIC VALVE: NORMAL AORTIC VALVE: MILD AORTIC INSUFFICIENCY PERICARDIAL EFFUSION: NONE AORTIC ROOT: NORMAL LEFT VENTRICULAR WALL MOTION: ATRIAL FIBRILLATION DOPPLER/COLOR FLOW: SEE BELOW COMMENTS: 1. LEFT VENTRICULAR EJECTION FRACTION IS NORMAL 50-60% 2. ATRIAL FIBRILLATION 3. LEFT ATRIAL ENLARGEMENT 4. MILD AORTIC INSUFFICIENCY 5. MILD TRICUSPID REGURGITATION TECHNOLOGIST: DAYAN ACOSTA
[2023-02-03] MEDS: METOPROLOL TAR 25 MG TAB PO SCH ×2 (07:00→17:08)
[2023-02-03] MEDS: INSULIN -REGULAR HUMAN 50 UNIT/0.5 ML ML SQ SCH ×3 (07:30→16:46)
[2023-02-03] MEDS: INSULIN LISPRO 100 UNIT/1 ML SQ SCH ×3 (08:00→17:09)
[2023-02-03] MEDS ORDERED: REGADENOSON 0.4 MG/5 ML SYR IV ONE (08:34)
[2023-02-03] MEDS ORDERED: KCL 20 MEQ/100 mL IVPB 20 MEQ/100 ML BAG IV SCH (09:00)
[2023-02-03] MEDS: SERTRALINE HCL 50 MG TAB PO SCH (09:43)
[2023-02-03] MEDS: ASPIRIN 81 MG CHEWABLE TABLET PO SCH (09:43)
[2023-02-03] MEDS ORDERED: POTASSIUM 25 MEQ EFFERV TAB PO ONE (09:46)
[2023-02-03 12:18] VITALS: O2SAT 95
--- NOTE | 2023-02-03 13:50 | RAD REPORT ---
EXAM DESCRIPTION: NM - Rest Stress Cardiac Imaging - 02/03/2023 1:42 pm CLINICAL HISTORY: CP Chest pain. COMPARISON: No comparisons TECHNIQUE: The patient was administered approximately 10mCi of Tc 99m Sestamibi prior to resting SPE CT imaging of the heart. The patient was then administered approximately 30 mCi of Tc 99m Sestamibi f ollowing exercise or pharmacologic stress. Multiplanar SPECT images were reviewed. FINDINGS: There is thinning of the left ventricular myocardium present. Fixed defect is seen involvi ng LV apex with rest and stress likely representing scarring from old infarction. The stress-induced ischemia defect is not seen. The end diastolic volume is 87 ml, the end systolic volume is 30 ml, and the ejection fraction is 66 %. IMPRESSION: No stress induced ischemia. 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
[2023-02-03] MEDS: ACETAMINOPHEN 325 MG TABLET PO PRN (14:00)
--- NOTE | 2023-02-03 15:21 | P.PN ---
Subjective Date of Service: 02/03/23 Chief Complaint: Chest pain, Dizziness Ms. Katya Hinojosa is Stateless-speaking only. The following history was obtained with the assistance of [employer] certified Stateless-Italian ticket taker ferryboat, Mr. Wright, (ID# [id number]). No acute events overnight. She reports that her symptoms have improved significantly this morning. She is no longer having any chest tightness or palpitations. Per Dr. Rm, plan for cardiac stress test this morning. She denies shortness of breath, abdominal pain, nausea, or vomiting. Review of Systems 10-point ROS is otherwise unremarkable Physical Examination - Vital Signs Temperature: 98.1 F Blood Pressure: 146/76 Pulse: 56 Respirations: 16 Pulse Ox (%): 95 Assessment And Plan - Plan - Physical Exam General: Alert, In no apparent distress, Oriented x3 HEENT: Atraumatic, Sclerae nonicteric Neck: JVD not distended Respiratory: Clear to auscultation bilaterally, Normal air movement Cardiovascular: No edema, No rubs, No murmurs, Irregular heart rate/rhythm Gastrointestinal: Normal bowel sounds, Soft, Non-distended, No tenderness Musculoskeletal: No clubbing Integumentary: No rashes Neurological: Normal gait, Normal affect # Paroxysmal Atrial Fibrillation with Rapid Ventricular Response # Hypertension Her [id number] = 4 (HTN=1, DM=1, Age 65-74=1, Sex=1), which warrants anticoagulation. - Evaluation thus far: - Troponin = 22.0 -> 16.4 -> 14.9 -> 12.5 - EKG = atrial fibrillation - CXR = "no acute cardiopulmonary process." - Potassium = 3.7, Magnesium = 1.9 - Target K> 4, Mg >2 - TSH = 2.04, Free T4 = 1.54 - BNP = 2,881 - Transthoracic echocardiogram = "1. left ventricular ejection fraction is normal 50-60% 2. atrial fibrillation 3. left atrial enlargement 4. mild aortic insufficiency 5. mild tricuspid regurgitation" - Management plan: - Consulted Cardiology and spoke with Dr. Rm - recommendations appreciated - Plan for cardiac stress today - For rate control: - Per Dr. 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 Stable chronic findings as above." - Carotid artery ultrasound = "mild soft plaque is present in both carotid bulbs. No evidence of a hemodynamically significant stenosis." # Hyperlipidemia - Continue home atorvastatin # Obesity - BMI 32.9 kg/m2 - Lifestyle modifications Dimitris Guerrier M.D.
[2023-02-03 16:45] VITALS: BP 143/67; TEMP 98.3
--- NOTE | 2023-02-03 18:35 | P.DS ---
Admission Date: 02/01/23 Discharge Date: 02/03/23 Disposition: ROUTINE DISCHARGE Discharge Condition: GOOD Reason for Admission: Chest pain, Dizziness Consultations: Cardiology- Dr. Rm Brief History of Present Illness: Patient is a 72-year-old female with a past medical history significant for hypothyroidism, hyperlipidemia, DM 2, obesity, hypertension who presents with complaint of chest pain and dizziness. Patient reported that she had chest pain all day yesterday. Patient indicated that chest pain is located in the substernal chest area and chest pain radiates to the back. Patient rated pain as 8/10 in severity and described pain as pressure in quality. Patient reported that this morning she started feeling dizzy. Patient reported associated signs and symptoms of nausea. Patient denies any other signs and symptoms. Symptoms are aggravated or relieved by nothing. Patient was brought to the hospital for medical evaluation. Hospital Course: Patient was admitted for new onset atrial fibrillation with rapid ventricular response, she was started on sotalol and Lovenox, she has since converted to normal sinus rhythm. She has received her third dose of sotalol her QTc is not prolonged on her EKG that was just recently performed. She has been cleared for discharge by cardiology. She will need follow-up with her primary care doctor and instructional support services director on outpatient basis. A prescription for Eliquis and sotalol have been sent to her pharmacy. She is to continue her other home medications. Vital Signs/Physical Exam: Temp Pulse Resp BP Pulse Ox 98.3 F 59 18 143/67 H 94 02/03/23 16:00 02/03/23 16:00 02/03/23 16:00 02/03/23 16:00 02/03/23 16:00 Laboratory Data at Discharge: WBC 8.00 thou/uL (4.3-10.9) 02/02/23 03:33 Hgb 12.5 g/dL (12.0-15.0) 02/02/23 03:33 Hct 35.1 % (36.0-45.0) L 02/02/23 03:33 Plt Count 284 thou/uL (152-406) 02/02/23 03:33 PT 11.1 SECONDS (9.5-12.5) 02/01/23 09:36 INR 1.01 02/01/23 09:36 Sodium 142 mEq/L (136-145) 02/03/23 02:56 Potassium 3.7 mEq/L (3.5-5.1) 02/03/23 02:56 BUN 16 mg/dL (7-18) 02/03/23 02:56 Creatinine 0.54 mg/dL (0.55-1.02) L 02/03/23 02:56 Glucose 91 mg/dL (74-106) 02/03/23 02:56 Phosphorus 2.7 mg/dL (2.5-4.9) 02/01/23 15:21 Magnesium 1.9 mg/dL (1.6-2.4) 02/01/23 15:21 Total Bilirubin 0.6 mg/dL (0.2-1.0) 02/01/23 09:36 AST 25 U/L (15-37) 02/01/23 09:36 ALT 40 U/L (13-56) 02/01/23 09:36 Alkaline Phosphatase 85 U/L (45-117) 02/01/23 09:36 Triglycerides 176 mg/dL (<150) H 02/02/23 03:33 Cholesterol 117 mg/dL (<200) 02/02/23 03:33 HDL Cholesterol 35 mg/dL (40-60) L 02/02/23 03:33 Cholesterol/HDL Ratio 3.34 02/02/23 03:33 Home Medications: Atorvastatin Calcium [Lipitor*] 10 mg PO BEDTIME 08/13/16 Metformin HCl [Glucophage] 500 mg PO BID 08/13/16 Amitriptyline [Elavil*] 1 tab PO BEDTIME 02/01/23 Amlodipine [Norvasc*] 1 tab PO DAILY 02/01/23 Carvedilol [Coreg] 1 tab PO DAILY 02/01/23 Esomeprazole Mag Trihydrate [Nexium] 1 tab PO DAILY 02/01/23 Levothyroxine Sodium [Levoxyl] 125 mcg PO DAILY 02/01/23 Losartan Potassium 1 tab PO DAILY 02/01/23 Losartan/Hydrochlorothiazide [Losartan-Hctz 100-12.5 mg Tab] 1 tab PO DAILY 02/01/23 Sertraline [Zoloft*] 1 tab PO DAILY 02/01/23 Apixaban [Eliquis] 5 mg PO BID #60 tablet 02/03/23 Sotalol HCl [Betapace*] 80 mg PO BID #60 tab 02/03/23 New Medications: Sotalol HCl [Betapace*] 80 mg PO BID #60 tab Apixaban [Eliquis] 5 mg PO BID #60 tablet Diet: AHA Activity: Ad fatmata Followup: Mike Zamudio DO [Primary Care Provider] - 1 Week Keyshawn Rm MD [ACTIVE - CAN ADMIT] - 1 Week
--- NOTE | 2023-02-04 07:08 | TREADPHA ---
DX: CHEST PAIN Date of Study: 02/03/2023 Ht: 5' 5 " Wt: 197 lb 15.954 oz Consulting Physician: FADI MEDICATIONS: TYLENOL, ELAVIL, ASPIRIN, LIPITOR, DEXTROSE, LOVENOX, GLUCAGEN, SEMGLEE, HUMALOG, NOVOLIN-R, SYNTHROID, LOPRESSOR, ZOFRAN, PROTONIX, ZOLOFT, BETAPACE, ULTRAM HISTORY: PHYSICIAL EXAMINATION: RESTING B.P.: 124/78 RESTING H.R.: 54 RESTING EKG: NORMAL SINUS RHYTHM, WITH T WAVE DEPRESSION IN LATERAL LEADS PROTOCOL: PHARMACOLOGIC EXERCISE TIME: 3:30 B.P. AT PEAK STRESS: 119/68 IMPRESSION: LEXISCAN INJECTED. CARDIOLITE INJECTED (SEE NUCLEAR MEDICINE REPORT). NO VENTRICULAR TACHYCARDIA/ SUPRAVENTRICULAR TACHYCARDIA. TWO PREMATURE VENTRICULAR COMPLEXES NOTED POST IN RECOVERY. COMPLAINTS OF HEADACHE AND SHORTNESS OF BREATH. NO ELECTROCARDIOGRAM CHANGES OF ISCHEMIA WITH LEXISCAN.
== END 2023-02-03 19:08 | disposition home or self-care (01) ==
LOC: ER 09:13 → ERHOLD 11:28 → 2ND 13:28
PROVIDERS: ADMIT Internal Medicine; ATTEND Internal Medicine
DX: I48.0 Paroxysmal atrial fibrillation (principal); R07.9 Chest pain, unspecified; E11.65 Type 2 diabetes mellitus with hyperglycemia; E05.80 Other thyrotoxicosis without thyrotoxic crisis or storm; T50.905A Adverse effect of unspecified drugs, medicaments and biological substances, initial encounter; I10 Essential (primary) hypertension; R42 Dizziness and giddiness; I07.1 Rheumatic tricuspid insufficiency; I35.1 Nonrheumatic aortic (valve) insufficiency; E78.5 Hyperlipidemia, unspecified; E89.0 Postprocedural hypothyroidism; E66.9 Obesity, unspecified; Z68.32 Body mass index [BMI] 32.0-32.9, adult; Z71.3 Dietary counseling and surveillance; Z79.84 Long term (current) use of oral hypoglycemic drugs; Z79.899 Other long term (current) drug therapy; Z83.3 Family history of diabetes mellitus; Z80.9 Family history of malignant neoplasm, unspecified
CPT/HCPCS: 36415; 70450; 71045; 78452; 80048; 80061; 80076; 81001; 82947; 83036; 83735; 83880; 84100; 84132; 84439; 84443; 84484; 85025; 85610; 93005; 93017; 93306; 93880; 96374; 99285; A9500; G0378; J1650; J1815; J2785

== ENCOUNTER 2023-04-19 08:34 | Emergency (ER) | payer OTHER ==
--- OUTSIDE RECORDS SUMMARY | 2023-04-19 08:42 | XMS REPORT | Continuity of Care Document ---
:1950 Author Organization [facility] t Address [address] [place] [address] Care Team Providers Name Role Phone MARCIAL ZAMUDIO Primary Care Physician Unavailable Marcial Zamudio Attending Clinician Unavailable STUART WYLIE Attending Clinician Unavailable Stuart Wylie MD Attending Clinician Sheila Rudd MD Attending Clinician Stan Garrido MD Attending Clinician RADIOLOGY Attending Clinician Unavailable Radiology Attending Clinician Unavailable Doctor Unassigned, [place] Attending Clinician Unavailable Be Silva MD Attending Clinician Only, Ang Db Test Attending Clinician Unavailable Janice Carmichael Attending Clinician JANICE FOWLER Attending Clinician Unavailable Elenita Humphreys MD Attending Clinician Saleem Louise MD Attending Clinician Lab, Ang - Db Attending Clinician Unavailable SALEEM LOUISE Attending Clinician Unavailable SALEEM LOUISE Attending Clinician Unavailable RENAN MONSALVE Attending Clinician Unavailable Renan Monsalve DO Attending Clinician Mary RICOWillie Tha Attending Clinician Lab, Adc Fam Pob I Attending Clinician Unavailable STUART WYLIE Admitting Clinician Unavailable STUART WYLIE Admitting Clinician Unavailable JAVI SHANKS Admitting Clinician Unavailable PRINCE MELCHOR Admitting Clinician Unavailable RENAN MONSALVE Admitting Clinician Unavailable Payers Payer Name Policy Type Policy Number Effective Date Expiration Date Ave vela [employer] HEALTH [id number] 2018spring 00:00:00 [employer] [id number] 2022 [facility] 00:[place]:00 Cigna-HealthSpring C1 [id number] Common Medicare Replace [facility] Problems Condition Condition Condition Status Onset Resolution Last Treating Co mments Source Name Details Category Date Date Treatment Clinician Date Renal mass Renal mass Disease Active C [facility] 09-09 [facility] 00:00: Medical [address] [place] [address] Dyslipidem Dyslipidem Disease Active 2015-08 U corina ia ia 2-06 ity of 00:00: [place] [facility] Prediabete Prediabete Disease Active U corina s s 9-06 ity of 00:00: [place] [facility] Dizzy Dizzy Disease Active 2014-08 Univers spells spells 2-04 ity of 00:00: [place] [facility] Palpitatio Palpitatio Disease Active 2014-08 U corina ns ns 2-04 ity of 00:00: [place] [facility] Shortness Shortness Disease Active 2014-08 Uni vers of breath of breath 2-04 ity of 00:00: [place] [facility] Atypical Atypical Disease Active 2014-08 Unive rs chest pain chest pain 2-04 it y of 00:00: [place] [facility] Postsurgic Postsurgic Disease Active 2014-08 U corina al al 2- ity of [place]othy[place] [facility] [id number] JENNY Problem Common (generaliz Spirit ed anxiety - [facility]I disorder) [facility] [id number] Mixed Problem Common hyperlipid Spirit emia - [facility] [id number] Constipati Problem Com mon on, Spirit unspecifie - [facility] [id number] Current Problem Common moderate Spirit episode of - [facility]I major [facility] disorder Medical without Center prior episode [id number] Other Problem Common chronic Spirit pain - 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 [id number] History of Problem Co mmon diabetes Spirit mellitus - [facility] [id number] Essential Problem Comm on hypertensi Spirit on - [facility] [id number] Gastroesop Problem Co mmon hageal Spirit reflux - CHI disease [facility] esophagiti Medica s [place] [id number] Primary Problem Commo n osteoarthr Spirit itis, - CHI unspecifie [facility] Acquired Acquired Problem Commo n hypothyroi hypothyroi Sp maria ines dism dism - [facility] [id number] Encounter Problem Com mon for Spirit [facility]olog[facility] finding [id number] Body mass Problem Com mon index Spirit (BMI) - CHI 32.0-32.9, [facility] [id number] Other Problem Common obesity Spirit due to - [facility]I excess [facility] [id number] Type 2 Problem Common diabetes Spirit mellitus - CHI with [facility] Medical without Center long-term current use of insulin [id number] Primary Problem Commo n osteoarthr Spirit itis - CHI involving [facility] joints [facility] [id number] Primary Problem Common insomnia Spirit - [facility] [id number] 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 Allergies, Adverse Reactions, Alerts Allergy Allergy Status Severity Reaction(s) Onset Inactive Treating Comm ents Source Name Type Date Date Clinician NO KNOWN Allergy Active [facility] NO KNOWN Drug Active [facility] Social History Social Habit Start Date Stop Date Quantity Comments Source History of Common Spirit - Tobacco Use [facility] Exposure to 2022-08-30 2022-09-09 Not sure [facility] SARS-CoV-2 00:00:00 10:26:00 Medical Center (event) Alcohol intake 2021-11-18 2021-11-18 0 /d [facility] 00:[facility]:00 00:00:00 [facility] Tobacco use and 2015-07-15 2015-07-15 Smokeless tobacco Un iversity of exposure 00:00:00 00:00:00 non-user [facility] Sex Assigned At 1950 [address] 00:00[facility]00 00:00:00 Medical Center Smoking Status Start Date Stop Date Source Never Smoker Common Spirit - [facility] Medications Ordered Filled Start Stop Current Ordering Indication Dosage Frequency Signature Comments Components Source Medication Medication Date Date Medication? Clinician (SIG) Name Name famotidine Yes 20mg Q.5D Take 20 mg [...] morning on tablet an empty stomach. amLODIPine Yes 5mg QD Take 5 mg CH [...] 14:49: daily. Medical tablet 14 Center ondansetron 2023-0 Yes 4mg Take [address] (ZOFRAN) 4 1-28 by mouth 2 Melissa es MG tablet 14:49: (two) Medical 14 times Center daily as needed for Nausea. losartan 2022-0 Yes 25mg QD Take [address] 12.5 MG 1-28 by [facility] hal[facility]ab 14:49: daily. Medical half tablet 14 Center famotidine 0 Yes 20mg Q.5D Take [address] (PEPCID) 20 1-28 by mouth 2 Cira kes MG tablet 14:49: (two) Medical 14 times Center daily. esomeprazol 0 Yes 40mg QD Take [address] [facility] (NexIUM) 1-28 by mouth [facility] 40 MG 14:49: daily. Medical capsule 14 Center sertraline 0 Yes 50mg QD Take [address] (ZOLOFT) 50 1-28 by mouth Luke s MG tablet 14:49: daily. Medica l 14 Center metFORMIN 0 Yes 500mg Take 500 CHI [...] 14:49: daily. Medica l 14 Center carvediloL 2022-0 Yes 12.5mg Take 12.5 CHI [...] daily. Medical half tablet 14 Center famotidine 0 Yes 20mg Q.5D Take [address] (PEPCID) 20 1-28 by mouth 2 Cira kes MG tablet 14:49: (two) Medical 14 times Center daily. esomeprazol 0 Yes 40mg QD Take [address] [facility] (NexIUM) 1-28 by mouth [facility] 40 MG 14:49: daily. Medical capsule 14 Center sertraline 0 Yes 50mg QD Take [address] (ZOLOFT) 50 1-28 by mouth Luke s MG tablet 14:49: daily. Medica l 14 Center metFORMIN 0 Yes 500mg Take 500 CHI [...] daily. Medical half tablet 14 Center famotidine 0 Yes 20mg Q.5D Take [address] (PEPCID) 20 1-28 by mouth 2 Cira kes MG tablet 14:49: (two) Medical 14 times Center daily. esomeprazol 2022-0 Yes 40mg QD Take [address] [facility] (NexIUM) 1-28 by mouth [facility] 40 MG 14:49: daily. Medical capsule 14 Center sertraline 0 Yes 50mg QD Take [address] (ZOLOFT) 50 1-28 by mouth Luke s MG tablet 14:49: daily. Medica l 14 Center metFORMIN 0 Yes 500mg Take 500 CHI [...] Center daily as needed for Nausea. losartan 2022-0 Yes 25mg QD Take [address] 12.5 MG 1-28 by mouth [facility] halftab 14:49: daily. Medical half tablet 14 Center famotidine 0 Yes 20mg Q.5D Take 20 [...] morning on tablet an empty stomach. amLODIPine Yes 5mg QD Take [address] (NORVASC) 5 -28 by mouth Luke s MG tablet 14:49: daily. Medica l 14 Center carvediloL Yes 12.5mg Take 12.[address] (COREG) 1-28 mg by [facility] 12.5 MG 14:49: mouth 2 Medical tablet 14 (two) Center times daily with breakfast and dinner. atorvastati Yes 10mg QD Take [address] [facility] (LIPITOR) - by mouth Luke s 10 MG 14:49: [...] 14:49: daily. Medical half tablet 14 Center acetaminoph 2022- No 1{tbl} Take 1 C [...] 10 days. methocarbam 2023-0 2023- No 500mg Q.[id number] Take [address] oL 09-11 [id number] tablet [facility] (ROBAXIN) 00:00: 23:59 3D (500 mg Medi tito 500 MG 00 :00 total) by Center tablet mouth 3 (three) times daily for 10 days. acetaminoph 2023-0 202- No 1{tbl} Take [address] [...] 10 days. methocarbam 2023-0 2023- No 500mg Q.[id number] Take [address] oL 09-11 [id number] tablet [facility] (ROBAXIN) 00:00: 23:59 3D (500 [...] 10 days. methocarbam 2022-0 2022- No 500mg Q.[id number] Take [address] oL 09-11 [id number] tablet [facility] (ROBAXIN) 00:00: 23:59 3D (500 mg Medi tito 500 MG 00 :00 total) by Center tablet mouth 3 (three) times daily for 10 days. acetaminoph 2022-2022- No 1{tbl} Take [address] en-codeine 09-11 tablet by Melissa es (Tylenol-Co 00:00: 23:59 mouth Medi tito deine #3) 00 :00 every 6 Center 300-30 mg (six) per tablet hours as needed for Pain for up to 10 days. Max Daily Amount: 4 tablets docusate 3-0 2022- No 100mg Take 1 CHI S t sodium 09-11 capsule [facility] (COLACE) 00:00: 23:59 (100 mg Medic al 100 MG 00 :00 total) by Center capsule mouth daily as needed for up to 10 days. methocarbam 2022-0 2022- No 500mg Q.[id number] Take [address] oL 09-11 [id number] tablet [facility] (ROBAXIN) 00:00: 23:59 3D (500 [...] Max Daily Amount: 4 tablets docusate 2023-0 3- No 100mg Take 1 CHI S t sodium 09-11 capsule [facility] (COLACE) 00:00: 23:59 (100 mg Medic al 100 MG 00 :00 total) by Center capsule mouth daily as needed for up to 10 days. methocarbam 2023-0 2023- No 500mg Q.[id number] Take [address] oL 09-11 [id number] tablet [facility] (ROBAXIN) 00:00: 23:59 3D (500 mg Medi tito 500 MG 00 :00 total) by Center tablet mouth 3 (three) times daily for 10 days. gadobenate 2021-08 No [id number] .2mL/kg 0.2 mL/kg, Univers dimeglumine 08-16 Intravenou i ty of (MULTIHANCE 22:45: 22:43 s, ONCE, 1 [place] -20 mL) 00 :00 dose, On Medical injection Wed Branch 0.2 mL/kg 06/16/22 at 1745, Routine iopamidol 2021-08 No [id number] 74mL 74 mL, U nivers (ISOVUE 05-15 [...] MG/5ML MG/5ML 00 :00 MG/5ML amitriptyli Yes [id number] 25mg Take 1 Univers ne 25 mg 3-24 tablet by ity of tablet 00:00: mouth at [place] 00 bedtime. Medical Branch amitriptyli Yes [id number] 25mg Take 1 Univers ne 25 mg 3-24 tablet by ity of tablet 00:00: mouth at [place] [address] bedtime. Medical Branch amitriptyli 2021-0 Yes [id number] 25mg Take 1 Univers ne 25 mg 3-24 tablet by ity of tablet 00:00: mouth at [place] [address] bedtime. Medical Branch amitriptyli 2021-0 Yes [id number] 25mg Take 1 Univers ne 25 mg 3-24 tablet by ity of tablet 00:00: mouth at [place] [address] bedtime. Medical Branch amitriptyli 2021-0 Yes [id number] 25mg Take 1 Univers ne 25 mg 3-24 tablet by ity of tablet 00:00: mouth at [place] [address] bedtime. Medical Branch amitriptyli 2021-0 Yes [id number] 25mg Take 1 Univers ne 25 mg 3-24 tablet by ity of tablet 00:00: mouth at [place] [address] bedtime. Medical Branch amitriptyli 2021-0 Yes [id number] 25mg Take 1 Univers ne 25 mg 3-24 tablet by ity of tablet 00:00: mouth at [place] [address] bedtime. Medical Branch amitriptyli 2021-0 Yes [id number] 25mg Take 1 Univers ne 25 mg 3-24 tablet by ity of tablet 00:00: mouth at [place] [address] bedtime. Medical Branch amitriptyli 2021-0 Yes [id number] 25mg Take 1 Univers ne 25 mg 3-24 tablet by ity of tablet 00:00: mouth at [place] [address] bedtime. Medical Branch amitriptyli 2021-0 Yes [id number] 25mg Take 1 Univers ne 25 mg 3-24 tablet by ity of tablet 00:00: mouth at [place] [address] bedtime. Medical Branch amitriptyli 2021-0 Yes [id number] 25mg Take 1 Univers ne 25 mg 3-24 tablet by ity of tablet 00:00: mouth at [place] [address] bedtime. Medical Branch amitriptyli 2021-0 Yes [id number] 25mg Take 1 Univers ne 25 mg 3-24 tablet by ity of tablet 00:00: mouth at [place] [address] bedtime. Medical Branch amLODIPine 2021-0 Yes Univers 10 mg 3-21 ity of tablet 00:00: [place] 00 [facility] amLODIPine 2021-0 Yes Univers 10 mg 3-21 ity of tablet 00:00: [place] 00 [facility] amLODIPine 2022-0 Yes Univers 10 mg 3-21 ity of tablet 00:00: [place] [facility] amLODIPine 2022-0 Yes Univers 10 mg 3-21 ity of tablet 00:00: [place] [facility] amLODIPine 2022-0 Yes Univers 10 mg 3-21 ity of tablet 00:00: [place] [facility] amLODIPine 2022-0 Yes Univers 10 mg 3-21 ity of tablet 00:00: [place] [facility] amLODIPine 2022-0 Yes Univers 10 mg 3-21 ity of tablet 00:00: [place] [facility] amLODIPine 2022-0 Yes Univers 10 mg 3-21 ity of tablet 00:00: [place] [facility] amLODIPine 2022-0 Yes Univers 10 mg 3-21 ity of tablet 00:00: [place] [facility] amLODIPine 2022-0 Yes Univers 10 mg 3-21 ity of tablet 00:00: [place] [facility] amLODIPine 2022-0 Yes Univers 10 mg 3-21 ity of tablet 00:00: [place] [facility] amLODIPine 2022-0 Yes Univers 10 mg 3-21 ity of tablet 00:00: [place] [facility] amLODIPine 2022-0 Yes Univers 10 mg 3-21 ity of tablet 00:00: [place] [facility] ondansetron 2022-0 Yes 4mg Take 4 mg U nivers 4 mg tablet 3-14 by mouth 2 it y of 00:00: (two) [place] 00 times Medical daily as Branch needed. ondansetron 2022-0 Yes 4mg Take 4 mg U nivers 4 mg tablet 3-14 by mouth 2 it y of 00:00: (two) [place] 00 times Medical daily as Branch needed. ondansetron 2022-0 Yes 4mg Take 4 mg U nivers 4 mg tablet 3-14 by mouth 2 it y of 00:00: (two) [place] 00 times Medical daily as Branch needed. ondansetron 2022-0 Yes 4mg Take 4 mg U nivers 4 mg tablet 3-14 by mouth 2 it y of 00:00: (two) [place] 00 times Medical daily as Branch needed. [...] times Medical daily as Branch needed. losartan-hy 2022-0 Yes 1{tbl} Take 1 Un [...] by mouth ity of tablet 00:00: daily. [place] [facility] Branch SERTraline 2021-0 Yes 50mg Take 50 mg U nivers 50 mg 2-14 by mouth ity of tablet 00:00: daily. [place] [facility] Branch SERTraline 2021-0 Yes 50mg Take 50 mg U nivers 50 mg 2-14 by mouth ity of tablet 00:00: daily. [place] [facility] SERTraline 2021-0 Yes 50mg Take 50 mg U nivers 50 mg 2-14 by mouth ity of tablet 00:00: daily. [address] SERTraline 2021-0 Yes 50mg Take 50 mg U nivers 50 mg 2-14 by mouth ity of tablet 00:00: daily. [place] [facility] SERTraline 2021-0 Yes 50mg Take 50 mg U nivers 50 mg 2-14 by mouth ity of tablet 00:00: daily. [place] [facility] SERTraline 2021-0 Yes 50mg Take 50 mg U nivers 50 mg 2-14 by mouth ity of tablet 00:00: daily. [place] [facility] SERTraline 2021-0 Yes 50mg Take 50 mg U nivers 50 mg 2-14 by mouth ity of tablet 00:00: daily. [address] SERTraline 2021-0 Yes 50mg Take 50 mg U nivers 50 mg 2-14 by mouth ity of tablet 00:00: daily. [place] [facility] SERTraline 2021-0 Yes 50mg Take 50 mg U nivers 50 mg 2-14 by mouth ity of tablet 00:00: daily. [address] SERTraline 2021-0 Yes 50mg Take 50 mg U nivers 50 mg 2-14 by mouth ity of tablet 00:00: daily. [address] SERTraline 2021-0 Yes 50mg Take 50 mg U nivers 50 mg 2-14 by mouth ity of tablet 00:00: daily. [place] 00 Medical Branch SERTraline 2022-0 Yes 50mg Take 50 mg U nivers 50 mg 2-14 by mouth ity of tablet 00:00: daily. [place] 00 Medical Branch Synthroid Synthroid 0 No QD 125 MCG [...] 2-03 125 MCG 00:00: 00 Synthroid Synthroid 1 No QD Synthroid 112 MCG 112 MCG 2-07 112 MCG 00:00: 00 Synthroid Synthroid 1 No QD Synthroid 112 MCG 112 MCG 2-07 112 MCG 00:00: 00 Synthroid Synthroid 2020-08 No QD Synthroid 112 MCG 112 MCG 2-07 112 MCG 00:00: 00 Rocephin Rocephin 2020-0 No 1g Commo n (Ceftriaxon (Ceftriaxon 8-20 S pirit e) e) 00:00: - [facility] Rocephin Rocephin 2020-0 No 1g Commo n (Ceftriaxon (Ceftriaxon 8-20 S pirit e) e) 00:00: - [facility] Rocephin Rocephin 2020-0 No 1g Commo n (Ceftriaxon (Ceftriaxon 8-20 S pirit e) e) 00:00: - [facility] Rocephin Rocephin 2020-0 No 1g Commo n (Ceftriaxon (Ceftriaxon 8-20 S pirit e) e) 00:00: - [facility] Rocephin Rocephin 2020-0 No 1g Commo n (Ceftriaxon (Ceftriaxon 8-20 S pirit e) e) 00:00: - [facility] Rocephin Rocephin 2020-0 No 1g Commo n (Ceftriaxon (Ceftriaxon 8-20 S pirit e) e) 00:00: - [facility] Rocephin Rocephin 2020-0 No 1g Commo n (Ceftriaxon (Ceftriaxon 8-20 S pirit e) e) 00:00: - [facility] Rocephin Rocephin 2020-0 No 1g Commo n (Ceftriaxon (Ceftriaxon 8-20 S pirit e) e) 00:00: - [facility] Rocephin Rocephin 2020-0 No 1g Commo n (Ceftriaxon (Ceftriaxon 8-20 S pirit e) e) 00:00: - [facility] Rocephin Rocephin 2020-0 No 1g Commo n (Ceftriaxon (Ceftriaxon 8-20 S pirit e) e) 00:00: - [facility] Rocephin Rocephin 2020-0 No 1g Commo n (Ceftriaxon (Ceftriaxon 8-20 S pirit e) e) 00:00: - [facility] Rocephin Rocephin 2020-0 No 1g Commo n (Ceftriaxon (Ceftriaxon 8-20 S pirit e) e) 00:00: - [facility] Rocrohinin Rocephin 2020-0 No 1g Commo n (Ceftriaxon (Ceftriaxon 8-20 S pirit e) e) 00:00: - [facility] Rocrohinin Rocephin 2020-0 No 1g Commo n (Ceftriaxon (Ceftriaxon 8-20 S pirit e) e) 00:00: - [facility] Rocfelicon Rocephin 2020-0 No 1g Commo n (Ceftriaxon (Ceftriaxon 8-20 S pirit e) e) 00:00: - [facility] 00 [facility] Ondansetron Ondansetron 2020-0 Yes Marcial 1 tablet Common HCl HCl 7-24 Zamudio Spirit 00:00: - [facility] Jardiance Jardiance 2020-0 Yes Marcial 1 tablet Common 7-24 Zamudio Spirit 00:00: - [facility] MetFORMIN MetFORMIN 2020-0 Yes Marcial 2 tablets Common HCl ER HCl ER 7-14 Zamudio with meal Spiri t 00:00: - [facility] Tradjenta Tradjenta Yes Marcial 1 tablet Common 7-14 Zamudio Spirit 00:00: - [facility] Restasis Restasis Yes Marcial 1 drop C ommon 5-28 Zamudio into Spirit 00:00: affected - CHI 00 eye as [facility] Restasis Restasis No 1{drop_ BID Restasis [...] Nystatin Nystatin Yes Marcial 1 Com mon 8-06 Zamudio applicatio Spirit 00:00: n to - CHI 00 affected [facility] Nystatin Nystatin 2018- No 1{appli BID Nystatin 750513 760746 8-06 cation_ 255090 UNIT/GM UNIT/GM 00:00: to_affe UNIT/GM 00 cted_ar ea} Nystatin Nystatin 2018- No 1{appli BID Nystatin 647366 865742 8-06 cation_ 856974 UNIT/GM UNIT/GM 00:00: to_affe UNIT/GM 00 cted_ar ea} Nystatin Nystatin 2019- No 1{appli BID Nystatin 783569 881716 8-06 cation_ 204965 UNIT/GM UNIT/GM 00:00: to_affe UNIT/GM 00 cted_ar ea} Nystatin Nystatin 2018- No 1{appli BID Nystatin 376271 617436 8-06 cation_ 405822 UNIT/GM UNIT/GM 00:00: to_affe UNIT/GM 00 cted_ar ea} omeprazole 2018- Yes [id number] 40mg Take 2 Univers 20 mg 2-13 tablets by ity of tablet 00:00: mouth [place] 00 daily. Medical Branch ondansetron 2019-0 Yes [id number] 4mg Take 1 Univers (ZOFRAN 2-13 tablet by ity of ODT) 4 mg 00:00: mouth [place] disintegrat 00 every 8 Medic al ing tablet (eight) Branch hours as needed for Nausea and Vomiting (N/V). omeprazole 2019-0 Yes [id number] 40mg Take 2 Univers 20 mg 2-13 tablets by ity of tablet 00:00: mouth [place] 00 daily. Medical Branch ondansetron 2019-0 Yes [id number] 4mg Take 1 Univers (ZOFRAN 2-13 tablet by ity of ODT) 4 mg 00:00: mouth [place] disintegrat 00 every 8 Medic al ing tablet (eight) Branch hours as needed for Nausea and Vomiting (N/V). omeprazole 2019-0 Yes [id number] 40mg Take 2 Univers 20 mg 2-13 tablets by ity of tablet 00:00: mouth [place] 00 daily. Medical Branch ondansetron 2019-0 Yes [id number] 4mg Take 1 Univers (ZOFRAN 2-13 tablet by ity of ODT) 4 mg 00:00: mouth [place] disintegrat 00 every 8 Medic al ing tablet (eight) Branch hours as needed for Nausea and Vomiting (N/V). omeprazole 2019-0 Yes [id number] 40mg Take 2 Univers 20 mg 2-13 tablets by ity of tablet 00:00: mouth [place] 00 daily. Medical Branch ondansetron 2019-0 Yes [id number] 4mg Take 1 Univers (ZOFRAN 2-13 tablet by ity of ODT) 4 mg 00:00: mouth [place] disintegrat 00 every 8 Medic al ing tablet (eight) Branch hours as needed for Nausea and Vomiting (N/V). omeprazole 2019-0 Yes [id number] 40mg Take 2 Univers 20 mg 2-13 tablets by ity of tablet 00:00: mouth [place] 00 daily. Medical Branch ondansetron 2019-0 Yes [id number] 4mg Take 1 Univers (ZOFRAN 2-13 tablet by ity of ODT) 4 mg 00:00: mouth [place] disintegrat 00 every 8 Medic al ing tablet (eight) Branch hours as needed for Nausea and Vomiting (N/V). omeprazole 2019-0 Yes [id number] 40mg Take 2 Univers 20 mg 2-13 tablets by ity of tablet 00:00: mouth [place] 00 daily. Medical Branch ondansetron 2019-0 Yes [id number] 4mg Take 1 Univers (ZOFRAN 2-13 tablet by ity of ODT) 4 mg 00:00: mouth [place] disintegrat 00 every 8 Medic al ing tablet (eight) Branch hours as needed for Nausea and Vomiting (N/V). omeprazole 2019-0 Yes [id number] 40mg Take 2 Univers 20 mg 2-13 tablets by ity of tablet 00:00: mouth [place] 00 daily. Medical Branch ondansetron 2019-0 Yes [id number] 4mg Take 1 Univers (ZOFRAN 2-13 tablet by ity of ODT) 4 mg 00:00: mouth [place] disintegrat 00 every 8 Medic al ing tablet (eight) Branch hours as needed for Nausea and Vomiting (N/V). omeprazole 2019-0 Yes [id number] 40mg Take 2 Univers 20 mg 2-13 tablets by ity of tablet 00:00: mouth [place] 00 daily. Medical Branch ondansetron 2019-0 Yes [id number] 4mg Take 1 Univers (ZOFRAN 2-13 tablet by ity of ODT) 4 mg 00:00: mouth [place] disintegrat 00 every 8 Medic al ing tablet (eight) Branch hours as needed for Nausea and Vomiting (N/V). omeprazole 2019-0 Yes [id number] 40mg Take 2 Univers 20 mg 2-13 tablets by ity of tablet 00:00: mouth [place] 00 daily. Medical Branch ondansetron 2019-0 Yes [id number] 4mg Take 1 Univers (ZOFRAN 2-13 tablet by ity of ODT) 4 mg 00:00: mouth [place] disintegrat 00 every 8 Medic al ing tablet (eight) Branch hours as needed for Nausea and Vomiting (N/V). omeprazole 2019-0 Yes [id number] 40mg Take 2 Univers 20 mg 2-13 tablets by ity of tablet 00:00: mouth [place] 00 daily. Medical Branch ondansetron 2019-0 Yes [id number] 4mg Take 1 Univers (ZOFRAN 2-13 tablet by ity of ODT) 4 mg 00:00: mouth [place] disintegrat 00 every 8 Medic al ing tablet (eight) Branch hours as needed for Nausea and Vomiting (N/V). omeprazole 2019-0 Yes [id number] 40mg Take 2 Univers 20 mg 2-13 tablets by ity of tablet 00:00: mouth [place] 00 daily. Medical Branch ondansetron 0 Yes [id number] 4mg Take 1 Univers (ZOFRAN 2-13 tablet by ity of ODT) 4 mg 00:00: mouth [place] disintegrat 00 every 8 Medic al ing tablet (eight) Branch hours as needed for Nausea and Vomiting (N/V). omeprazole 2019-0 Yes [id number] 40mg Take 2 Univers 20 mg 2-13 tablets by ity of tablet 00:00: mouth [place] 00 daily. Medical Branch ondansetron Yes [id number] 4mg Take 1 Univers (ZOFRAN 2-13 tablet by ity of ODT) 4 mg 00:00: mouth [place] disintegrat 00 every 8 Medic al ing tablet (eight) Branch hours as needed for Nausea and Vomiting (N/V). omeprazole 2018- Yes [id number] 40mg Take 2 Univers 20 mg 2-13 tablets by ity of tablet 00:00: mouth [place] 00 daily. Medical Branch ondansetron Yes [id number] 4mg Take 1 Univers (ZOFRAN 2-13 tablet by ity of ODT) 4 mg 00:00: mouth [place] disintegrat 00 every 8 Medic al ing tablet (eight) Branch hours as needed for Nausea and Vomiting (N/V). omeprazole 2019-0 Yes [id number] 40mg Take 2 Univers 20 mg 2-13 tablets by ity of tablet 00:00: mouth [place] 00 daily. Medical Branch ondansetron Yes [id number] 4mg Take 1 Univers (ZOFRAN 2-13 tablet by ity of ODT) 4 mg 00:00: mouth [place] disintegrat 00 every 8 Medic al ing tablet (eight) Branch hours as needed for Nausea and Vomiting (N/V). Diclofenac Yes [id number] Take 2-4 Univers Sodium 8-16 grams ity of (VOLTAREN) 00:00: three [place] 1 % gel 00 times a Medical day as Branch needed for pain levothyroxi 2017- Yes [id number] 100ug Take 1 [facility] ne 100 mcg 8-16 tablet by ity of tablet 00:00: mouth [place] 00 every Medical morning. Branch lisinopril Yes [id number] 10mg Take 1 U nivers 10 mg 8-16 tablet by ity of tablet 00:00: mouth [place] 00 daily. Medical Branch Diclofenac 2017- Yes [id number] Take 2-4 Univers Sodium 8-16 grams ity of (VOLTAREN) 00:00: three [place] 1 % gel 00 times a Medical day as Branch needed for pain levothyroxi Yes [id number] 100ug Take 1 [facility] ne 100 mcg 8-16 tablet by ity of tablet 00:00: mouth [place] 00 every Medical morning. Branch lisinopril Yes [id number] 10mg Take 1 U nivers 10 mg 8-16 tablet by ity of tablet 00:00: mouth [place] 00 daily. Medical Branch Diclofenac Yes [id number] Take 2-4 Univers Sodium 8-16 grams ity of (VOLTAREN) 00:00: three [place] 1 % gel 00 times a Medical day as Branch needed for pain levothyroxi Yes [id number] 100ug Take 1 [facility] ne 100 mcg 8-16 tablet by ity of tablet 00:00: mouth [place] 00 every Medical morning. Branch lisinopril Yes [id number] 10mg Take 1 U nivers 10 mg 8-16 tablet by ity of tablet 00:00: mouth [place] 00 daily. Medical Branch Diclofenac 2017- Yes [id number] Take 2-4 Univers Sodium 8-16 grams ity of (VOLTAREN) 00:00: three [place] 1 % gel 00 times a Medical day as Branch needed for pain levothyroxi 2017- Yes [id number] 100ug Take 1 [facility] ne 100 mcg 8-16 tablet by ity of tablet 00:00: mouth [place] 00 every Medical morning. Branch lisinopril Yes [id number] 10mg Take 1 U nivers 10 mg 8-16 tablet by ity of tablet 00:00: mouth [place] 00 daily. Medical Branch Diclofenac 2017- Yes [id number] Take 2-4 Univers Sodium 8-16 grams ity of (VOLTAREN) 00:00: three [place] 1 % gel 00 times a Medical day as Branch needed for pain levothyroxi 2017- Yes [id number] 100ug Take 1 [facility] ne 100 mcg 8-16 tablet by ity of tablet 00:00: mouth [place] 00 every Medical morning. Branch lisinopril Yes [id number] 10mg Take 1 U nivers 10 mg 8-16 tablet by ity of tablet 00:00: mouth [place] 00 daily. Medical Branch Diclofenac 2017- Yes [id number] Take 2-4 [facility] Sodium 8-16 grams ity of (VOLTAREN) 00:00: three [place] 1 % gel 00 times a Medical day as Branch needed for pain levothyroxi Yes [id number] 100ug Take 1 [facility] ne 100 mcg 8-16 tablet by ity of tablet 00:00: mouth [place] 00 every Medical morning. Branch lisinopril Yes [id number] 10mg Take 1 U nivers 10 mg 8-16 tablet by ity of tablet 00:00: mouth [place] 00 daily. Medical Branch Diclofenac Yes [id number] Take 2-4 [facility] Sodium 8-16 grams ity of (VOLTAREN) 00:00: three [place] 1 % gel 00 times a Medical day as Branch needed for pain levothyroxi Yes [id number] 100ug Take 1 [facility] ne 100 mcg 8-16 tablet by ity of tablet 00:00: mouth [place] 00 every Medical morning. Branch lisinopril Yes [id number] 10mg Take 1 U nivers 10 mg 8-16 tablet by ity of tablet 00:00: mouth [place] 00 daily. Medical Branch Diclofenac 2017- Yes [id number] Take 2-4 [facility] Sodium 8-16 grams ity of (VOLTAREN) 00:00: three [place] 1 % gel 00 times a Medical day as Branch needed for pain levothyroxi 2017- Yes [id number] 100ug Take 1 [facility] ne 100 mcg 8-16 tablet by ity of tablet 00:00: mouth [place] 00 every Medical morning. Branch lisinopril Yes [id number] 10mg Take 1 U nivers 10 mg 8-16 tablet by ity of tablet 00:00: mouth [place] 00 daily. Medical Branch Diclofenac 2017- Yes [id number] Take 2-4 [facility] Sodium 8-16 grams ity of (VOLTAREN) 00:00: three [place] 1 % gel 00 times a Medical day as Branch needed for pain levothyroxi 2017- Yes [id number] 100ug Take 1 [facility] ne 100 mcg 8-16 tablet by ity of tablet 00:00: mouth [place] 00 every Medical morning. Branch lisinopril Yes [id number] 10mg Take 1 U nivers 10 mg 8-16 tablet by ity of tablet 00:00: mouth [place] 00 daily. Medical Branch Diclofenac 2017- Yes [id number] Take 2-4 [facility] Sodium 8-16 grams ity of (VOLTAREN) 00:00: three [place] 1 % gel 00 times a Medical day as Branch needed for pain levothyroxi Yes [id number] 100ug Take 1 [facility] ne 100 mcg 8-16 tablet by ity of tablet 00:00: mouth [place] 00 every Medical morning. Branch lisinopril Yes [id number] 10mg Take 1 U nivers 10 mg 8-16 tablet by ity of tablet 00:00: mouth [place] 00 daily. Medical Branch Diclofenac Yes [id number] Take 2-4 [facility] Sodium 8-16 grams ity of (VOLTAREN) 00:00: three [place] 1 % gel 00 times a Medical day as Branch needed for pain levothyroxi Yes [id number] 100ug Take 1 [facility] ne 100 mcg 8-16 tablet by ity of tablet 00:00: mouth [place] 00 every Medical morning. Branch lisinopril Yes [id number] 10mg Take 1 U nivers 10 mg 8-16 tablet by ity of tablet 00:00: mouth [place] 00 daily. Medical Branch Diclofenac 2017- Yes [id number] Take 2-4 [facility] Sodium 8-16 grams ity of (VOLTAREN) 00:00: three [place] 1 % gel 00 times a Medical day as Branch needed for pain levothyroxi 2017- Yes [id number] 100ug Take 1 [facility] ne 100 mcg 8-16 tablet by ity of tablet 00:00: mouth [place] 00 every Medical morning. Branch lisinopril Yes [id number] 10mg Take 1 U nivers 10 mg 8-16 tablet by ity of tablet 00:00: mouth [place] 00 daily. Medical Branch Diclofenac 2017- Yes [id number] Take 2-4 Univers Sodium 8-16 grams ity of (VOLTAREN) 00:00: three [place] 1 % gel 00 times a Medical day as Branch needed for pain levothyroxi 2017- Yes [id number] 100ug Take 1 [facility] ne 100 mcg 8-16 tablet by ity of tablet 00:00: mouth [place] 00 every Medical morning. Branch lisinopril Yes [id number] 10mg Take 1 U nivers 10 mg 8-16 tablet by ity of tablet 00:00: mouth [place] 00 daily. Medical Branch Diclofenac Yes [id number] Take 2-4 [facility] Sodium 8-16 grams ity of (VOLTAREN) 00:00: three [place] 1 % gel 00 times a Medical day as Branch needed for pain levothyroxi Yes [id number] 100ug Take 1 [facility] ne 100 mcg 8-16 tablet by ity of tablet 00:00: mouth [place] 00 every Medical morning. Branch lisinopril Yes [id number] 10mg Take 1 U nivers 10 mg 8-16 tablet by ity of tablet 00:00: mouth [place] 00 daily. Medical Branch atorvastati Yes [id number] 20mg Take 1 Univers n 20 mg 1-17 tablet by ity of tablet 00:00: mouth at [place] [address] bedtime. Medical Branch atorvastati Yes [id number] 20mg Take 1 Univers n 20 mg 1-17 tablet by ity of tablet 00:00: mouth at [place] [address] bedtime. Medical Branch atorvastati Yes [id number] 20mg Take 1 Univers n 20 mg 1-17 tablet by ity of tablet 00:00: mouth at [place] [address] bedtime. Medical Branch atorvastati Yes [id number] 20mg Take 1 Univers n 20 mg 1-17 tablet by ity of tablet 00:00: mouth at [place] [address] bedtime. Medical Branch atorvastati Yes [id number] 20mg Take 1 Univers n 20 mg 1-17 tablet by ity of tablet 00:00: mouth at [place] [address] bedtime. Medical Branch atorvastati Yes [id number] 20mg Take 1 Univers n 20 mg 1-17 tablet by ity of tablet 00:00: mouth at [place] [address] bedtime. Medical Branch atorvastati Yes [id number] 20mg Take 1 Univers n 20 mg 1-17 tablet by ity of tablet 00:00: mouth at [place] [address] bedtime. Medical Branch atorvastati Yes [id number] 20mg Take 1 Univers n 20 mg 1-17 tablet by ity of tablet 00:00: mouth at [place] [address] bedtime. Medical Branch atorvastati Yes [id number] 20mg Take 1 Univers n 20 mg 1-17 tablet by ity of tablet 00:00: mouth at [place] [address] bedtime. Medical Branch atorvastati Yes [id number] 20mg Take 1 Univers n 20 mg 1-17 tablet by ity of tablet 00:00: mouth at [place] [address] bedtime. Medical Branch atorvastati Yes [id number] 20mg Take 1 Univers n 20 mg 1-17 tablet by ity of tablet 00:00: mouth at [place] [address] bedtime. Medical Branch atorvasta Yes [id number] 20mg Take 1 Univers n 20 mg 1-17 tablet by ity of tablet 00:00: mouth at [place] [address] bedtime. Medical Branch atorvasta Yes [id number] 20mg Take 1 Univers n 20 mg 1-17 tablet by ity of tablet 00:00: mouth at [place] [address] bedtime. Medical Branch atorvasta Yes [id number] 20mg Take 1 Univers n 20 mg 1-17 tablet by ity of tablet 00:00: mouth at [place] [address] bedtime. Medical Branch Lipitor Lipitor Yes Marcial 1 tablet Com mon [facility] Lisinopril Lisinopril Yes Marcial 1 tablet Common [facility] Prilosec Prilosec Yes Marcial 1 tablet C ommon OTC OTC [facility] Levothyroxi Levothyroxi Yes Marcial 1 tablet Common ne Sodium ne Sodium Zamudio on an Spi rit empty - [facility] stomach in [facility] metFORMIN metFORMIN No BID metFORMIN HCl [...] Spirit - OVER 65 OVER 65 13:44:00 [facility] FLUZONE HIGH DOSE FLUZONE HIGH DOSE 2022-06-24 [facility]pleted [facility] - [facility] 65 OVER 65 13:44:00 [facility] FLUZONE HIGH DOSE FLUZONE HIGH DOSE 2022-06-24 Completed [facility] - OVER 65 OVER 65 13:44:00 [facility] FLUZONE HIGH DOSE FLUZONE HIGH DOSE 2022-06-24 Completed [facility] - OVER 65 OVER 65 13:44:00 [facility] FLUZONE HIGH DOSE FLUZONE HIGH DOSE 2022-06-24 Completed [facility] - OVER 65 OVER 65 13:44:00 [facility] Td 2021-04-21 Completed [facility] 00:00:00 [facility] Td 2021-04-21 Completed [facility] 00:00:00 [facility] Td 2021-04-21 Completed [facility] 00:00:00 [facility] Td 2021-04-21 Completed [facility] 00:00:00 [facility] Td 2021-04-21 Completed [facility] 00:00:00 [facility] Td 2021-04-21 Completed [facility] 00:00:00 [facility] Td 2021-04-21 Completed [facility] 00:00:00 [facility] Td 2021-04-21 Completed [facility] of 00:00:00 [facility] Td 2021-04-21 Completed [facility] 00:00:00 [facility] Td 2021-04-21 Completed [facility] 00:00:00 [facility] Td 2021-04-21 Completed [facility] of 00:00:00 [facility] Td 2021-04-21 Completed [facility] of 00:00:00 [facility] Td 2021-04-21 Completed [facility] 00:00:00 [facility] TD, NOS 2021-04-21 Completed [facility] of 00:00:00 [facility] Vital Signs Vital Name Observation Time Observation Value Comments Source HEIGHT 2022-09-09 10:00:00 165.1 cm WEIGHT 2022-09-09 10:00:00 87.454 kg HEIGHT 2022-09-09 10:00:00 165.1 cm WEIGHT 2022-09-09 10:00:00 87.454 kg HEIGHT 2022-09-09 10:00:00 165.1 cm WEIGHT 2022-09-09 10:00:00 87.454 kg height 2022-06-24 08:00:00 65 [in_i] Common S [facility]irit [facility] weight 2022-06-24 08:00:00 199.8 [lb_av] [facility] temperature 2022-06-24 08:00:00 97.3 [degF] [facility] bmi 2022-06-24 08:00:00 33.24 kg/m2 [facility] oximetry 2022-06-24 08:00:00 99 % Common S pir - [facility] respiratory rate 2022-06-24 08:00:00 18 /min Comm on [facility] blood pressure 2022-06-24 08:00:00 145 mm[Hg] Common [facility] - systolic [facility] blood pressure 2022-06-24 08:00:00 72 mm[Hg] Common [facility] - diastolic [facility] height 2022-06-04 11:30:00 65 [in_i] Common S [facility] weight 2022-06-04 11:30:00 200.6 [lb_av] [facility] temperature 2022-06-04 11:30:00 97.6 [degF] [facility] bmi 2022-06-04 11:30:00 33.38 kg/m2 [facility] oximetry 2022-06-04 11:30:00 99 % [facility] respiratory rate 2022-06-04 11:30:00 18 /min Comm on [facility] blood pressure 2022-06-04 11:30:00 184 mm[Hg] Common [facility] - systolic [facility] blood pressure 2022-06-04 11:30:00 77 mm[Hg] Common [facility] - diastolic [facility] height 2022-03-23 16:30:00 65 [in_i] Common S pirit [facility] weight 2022-03-23 16:30:00 198.6 [lb_av] [facility] temperature 2022-03-23 16:30:00 98.0 [degF] Common [facility] bmi 2022-03-23 16:30:00 33.05 kg/m2 [facility] oximetry 2022-03-23 16:30:00 94 % [facility] respiratory rate 2022-03-23 16:30:00 16 /min Comm on [facility] blood pressure 2022-03-23 16:30:00 125 mm[Hg] Common [facility] - systolic [facility] blood pressure 2022-03-23 16:30:00 59 mm[Hg] Common [facility] - diastolic [facility] height 2022-03-08 09:40:00 65 [in_i] Common [facility] weight 2022-03-08 09:40:00 199.4 [lb_av] Common [facility] bmi 2022-03-08 09:40:00 33.18 kg/m2 Common [facility] Systolic blood 2021-11-03 18:21:00 112 mm[Hg] Univer sity of pressure [facility] Diastolic blood 2021-11-03 18:21:00 65 mm[Hg] Unive rsity of [facility] Heart rate 2021-11-03 18:21:00 62 /min [facility] Body height 2021-11-03 18:21:00 162.6 cm [facility] Body weight 2021-11-03 18:21:00 91.627 kg [facility] BMI 2021-11-03 18:21:00 34.67 kg/m2 [facility] Oxygen saturation in 2021-11-03 18:21:00 98 /min [facility] blood by [facility] Pulse oximetry Branch height 2021-10-26 16:10:00 65 [in_i] Common [facility] weight 2021-10-26 16:10:00 199.4 [lb_av] Common [facility] temperature 2021-10-26 16:10:00 97.2 [degF] [facility] bmi 2021-10-26 16:10:00 33.18 kg/m2 [facility] oximetry 2021-10-26 16:10:00 98 % [facility] respiratory rate 2021-10-26 16:10:00 17 /min Comm on [facility] blood pressure 2021-10-26 16:10:00 138 mm[Hg] [facility] systolic [facility] blood pressure 2021-10-26 16:10:00 75 mm[Hg] [facility] - diastolic [facility] height 2021-09-28 16:20:00 65 [in_i] Common S pirit [facility] weight 2021-09-28 16:20:00 204.6 [lb_av] Common [facility] temperature 2021-09-28 16:20:00 97.7 [degF] Common S pirit [facility] bmi 2021-09-28 16:20:00 34.04 kg/m2 Common [facility] oximetry 2021-09-28 16:20:00 97 % [facility] S [facility] respiratory rate 2021-09-28 16:20:00 17 /min Comm on [facility] blood pressure 2021-09-28 16:20:00 142 mm[Hg] [facility] - systolic [facility] blood pressure 2021-09-28 16:20:00 78 mm[Hg] [facility] - diastolic [facility] height 2021-09-15 15:30:00 65 [in_i] Common [facility] weight 2021-09-15 15:30:00 201.1 [lb_av] [facility] temperature 2021-09-15 15:30:00 97.5 [degF] Common S pirit [facility] bmi 2021-09-15 15:30:00 33.46 kg/m2 [facility] oximetry 2021-09-15 15:30:00 97 % [facility] 2021-09-15 15:30:00 17 /min Comm on [facility] blood pressure 2021-09-15 15:30:00 137 mm[Hg] Common [facility] - systolic [facility] blood pressure 2021-09-15 15:30:00 76 mm[Hg] [facility] - diastolic [facility] height 2021-09-15 16:00:00 65 [in_i] Common [facility] weight 2021-09-15 16:00:00 201.1 [lb_av] [facility] temperature 2021-09-15 16:00:00 97.5 [degF] [facility] bmi 2021-09-15 16:00:00 33.46 kg/m2 Common S [facility] oximetry 2021-09-15 16:00:00 97 % [facility] S [facility] respiratory rate 2021-09-15 16:00:00 17 /min Comm on [facility] blood pressure 2021-09-15 16:00:00 137 mm[Hg] Common [facility] systolic [facility] blood pressure 2021-09-15 16:00:00 76 mm[Hg] Common [facility] diastolic [facility] height 2021-07-21 10:10:00 65 [in_i] Common [facility] weight 2021-07-21 10:10:00 200.0 [lb_av] [facility] temperature 2021-07-21 10:10:00 97.4 [degF] [facility] bmi 2021-07-21 10:10:00 33.28 kg/m2 [facility] oximetry 2021-07-21 10:10:00 97 % [facility] respiratory rate 2021-07-21 10:10:00 17 /min Comm on [facility] blood pressure 2021-07-21 10:10:00 149 mm[Hg] Common [facility] - systolic [facility] blood pressure 2021-07-21 10:10:00 87 mm[Hg] [facility] diastolic [facility] Heart rate 2022-09-11 11:06:33 61 /min [facility] Body temperature 2022-09-11 11:06:33 36.61 [facility] Oxygen saturation in 2022-09-11 11:06:33 100 /min [facility] Arterial blood by Medical Ce nter Pulse oximetry Systolic blood 2022-09-11 11:05:00 117 mm[Hg] [facility] Diastolic blood 2022-09-11 11:05:00 49 mm[Hg] [facility] Respiratory rate 2022-09-11 03:36:14 18 /min [facility] Body height 2022-09-09 10:00:00 165.1 cm [facility] Body weight 2022-09-09 10:00:00 87.454 kg [facility] BMI 2022-09-09 10:00:00 32.08 kg/m2 [facility] Procedures Procedure Date / Time Performing Clinician Source Performed BASIC METABOLIC PANEL 2022-09-11 05:21:00 Christopher Chaudhary [facility] CBC W/PLT COUNT & AUTO 2022-09-11 05:21:00 [facility] CBC W/PLT COUNT & AUTO 2022-09-11 05:21:00 [facility] CBC W/PLT COUNT & AUTO 2022-09-10 21:53:00 [facility] CBC W/PLT COUNT & AUTO 2022-09-10 21:53:00 [facility] POCT-GLUCOSE METER 2022-09-10 16:05:00 Clif [facility] POCT-GLUCOSE METER 2022-09-10 11:51:00 Clif [facility] POCT-GLUCOSE METER 2022-09-10 08:12:00 Clif [facility] BASIC METABOLIC PANEL 2022-09-10 05:07:00 Christopher Chaudhary [facility] HEMOGLOBIN AND 2022-09-10 05:07:00 Christopher Chaudhary [facility] POCT-GLUCOSE METER 2022-09-09 19:22:00 Clif [facility] HEMOGLOBIN AND 2022-09-09 18:47:00 Christopher Chaudhary [facility] BASIC METABOLIC PANEL 2022-09-09 18:47:00 Christopher Chaudhary [facility] TISSUE EXAM 2022-09-09 17:13:00 [facility] 2022-09-09 17:13:00 Stuart Wylie [facility] ROBOTIC 2022-09-09 13:28:00 Stuart Wylie [facility] LAPAROSCOPY,NEPHRECTOMY Center -PARTIAL PROCEDURE W/ DAVINCI XI 2022-09-09 13:28:00 Clif [facility] PREPARE RBC 2022-09-09 12:24:00 Clif [facility] ROBOTIC 2022-09-09 12:00:00 Clif [facility] LAPAROSCOPY,NEPHRECTOMY Center -PARTIAL PROCEDURE W/ DAVINCI XI 2022-09-09 12:00:00 Clif [facility] ECG 12-LEAD 2022-09-09 11:31:37 Stan Garrido [facility] ECG 12-LEAD 2022-09-09 11:31:37 Unknown, Hl7 Doctor [facility] ECG 12-LEAD 2022-09-09 11:31:37 Unknown, Hl7 Doctor [facility] ABORH, MANUAL 2022-09-09 11:27:00 Karina Barajas [facility] POCT-GLUCOSE METER 2022-09-09 11:20:00 Clif [facility] TYPE AND SCREEN, 2022-09-09 11:09:00 Cha Dacosta [facility] AUTOMATED Center XR CHEST 2 VW 2022-08-17 14:11:39 Requisition, Paper [facility] Medical Branch ASSIGNMENT OF BENEFITS 2022-06-16 21:17:35 Doctor Unassigned, No [facility] Name Medical Branch HB CREATININE 2022-05-15 14:20:00 Radiology [facility] [place] SERUM/BLOOD FOR IMAGING Medical Branch DEXA AXIAL (HIP AND 2021-11-18 21:13:26 Requisition, Paper [facility] SPINE) Medical Branch CONSENT/REFUSAL FOR 2021-11-18 20:29:45 Doctor Unassigned, No [facility] DIAGNOSIS AND TREATMENT Name Medical Branch ASSIGNMENT OF BENEFITS 2021-11-18 20:29:31 Doctor Unassigned, No [facility] Name Medical Branch REFERRAL- 2021-10-27 05:01:00 Doctor Unassigned, No [facility] REQUEST/RESPONSE Name Medical Branch Plan of Care Planned Activity Planned Date Details Comments Source Future Scheduled 2023-04-[address] [facility] Test 00:00:00 (Season Ended) [code = Medic al Center INFLUENZA VACCINE (Season Ended)] Future Scheduled 2023-04-[address] [facility] Test 00:00:00 (Season Ended) [code = Medic al Center Influenza Vaccine (Season Ended)] Future Scheduled 2023-04-15 Influenza Vaccine (#1) [facility] 00:00:00 [code = Influenza Medical Ce nter Vaccine (#1)] Future Scheduled 2022-08-[address] [facility] Test 00:00:00 (12+) [code = Medical Center DEPRESSION SCREENING (12+)] Future Scheduled 2022-08-15 FALLS RISK SCREENING [facility] Test 00:00:00 [code = FALLS RISK Medical C enter SCREENING] Future Scheduled 2022-08-15 Medicare IPPE (WELCOME [facility] 00:00:00 TO MEDICARE) [code = Medical Center Medicare IPPE (WELCOME TO MEDICARE)] Future Scheduled 2022-08-[address] [facility] Test 00:00:00 (12+) [code = Medical Center DEPRESSION SCREENING (12+)] Future Scheduled 2022-08-15 FALLS RISK SCREENING [facility] Test 00:00:00 [code = FALLS RISK Medical C enter SCREENING] Future Scheduled 2022-08-15 Medicare IPPE (WELCOME [facility] 00:00:00 TO MEDICARE) [code = Medical Center Medicare IPPE (WELCOME TO MEDICARE)] Future Scheduled 2022-08-[address] [facility] Test 00:00:00 (12+) [code = Medical Center DEPRESSION SCREENING (12+)] Future Scheduled 2022-08-[address] [facility] Test 00:00:00 (12+) [code = Medical Center DEPRESSION SCREENING (12+)] Future Scheduled 2022-08-15 FALLS RISK SCREENING [facility] Test 00:00:00 [code = FALLS RISK Medical C enter SCREENING] Future Scheduled 2022-08-15 Medicare IPPE (WELCOME [facility] 00:00:00 TO MEDICARE) [code = Medical Center Medicare IPPE (WELCOME TO MEDICARE)] Future Scheduled 2022-08-15 FALLS RISK SCREENING [facility] Test 00:00:00 [code = FALLS RISK Medical C enter SCREENING] Future Scheduled 2022-08-15 Medicare IPPE (WELCOME [facility] 00:00:00 TO MEDICARE) [code = Medical Center Medicare IPPE (WELCOME TO MEDICARE)] Future Scheduled 2022-08-[address] [facility] Test 00:00:00 (12+) [code = Medical Center DEPRESSION SCREENING (12+)] Future Scheduled 2022-08-15 FALLS RISK SCREENING [facility] Test 00:00:00 [code = FALLS RISK Medical C enter SCREENING] Future Scheduled 2022-08-15 Medicare IPPE (WELCOME [facility] 00:00:00 TO MEDICARE) [code = Medical Center Medicare IPPE (WELCOME TO MEDICARE)] Future Scheduled 2022-08-[address] [facility] Test 00:00:00 (12+) [code = Medical Center DEPRESSION SCREENING (12+)] Future Scheduled 2022-08-15 FALLS RISK SCREENING [facility] Test 00:00:00 [code = FALLS RISK Medical C enter SCREENING] Future Scheduled 2022-08-15 Medicare IPPE (WELCOME [facility] 00:00:00 TO MEDICARE) [code = Medical Center Medicare IPPE (WELCOME TO MEDICARE)] Future Scheduled 2022-04-15 INFLUENZA VACCINE (#1) [facility] 00:00:00 [code = INFLUENZA Medical Ce nter VACCINE (#1)] Future Scheduled 2022-04-15 INFLUENZA VACCINE (#1) [facility] 00:00:00 [code = INFLUENZA Medical Ce nter VACCINE (#1)] Future Scheduled 2022-04-15 INFLUENZA VACCINE (#1) [facility] 00:00:00 [code = INFLUENZA Medical Ce nter VACCINE (#1)] Future Scheduled 2021-08-03 DTAP/TDAP/TD VACCINES [facility] 00:00:00 (2 - Td or Tdap) [code Medic al Center = DTAP/TDAP/TD VACCINES (2 - Td or Tdap)] Future Scheduled 2021-08-03 DTAP/TDAP/TD VACCINES [facility] 00:00:00 (2 - Td or Tdap) [code Medic al Center = DTAP/TDAP/TD VACCINES (2 - Td or Tdap)] Future Scheduled 2021-08-03 DTAP/TDAP/TD VACCINES [facility] 00:00:00 (2 - Td or Tdap) [code Medic al Center = DTAP/TDAP/TD VACCINES (2 - Td or Tdap)] Future Scheduled 2021-08-03 DTAP/TDAP/TD VACCINES [facility] 00:00:00 (2 - Td or Tdap) [code Medic al Center = DTAP/TDAP/TD VACCINES (2 - Td or Tdap)] Future Scheduled 2021-08-03 DTAP/TDAP/TD VACCINES [facility] 00:[facility]00 (2 - Td or Tdap) [code Medic al Center = DTAP/TDAP/TD VACCINES (2 - Td or Tdap)] Future Scheduled 2021-08-03 DTAP/TDAP/TD VACCINES [facility] 00:00:00 (2 - Td or Tdap) [code Medic al Center = DTAP/TDAP/TD VACCINES (2 - Td or Tdap)] Future Scheduled 2016 PNEUMOCOCCAL 65+ YRS ([address] [facility] 00:00:00 - PCV) [code = Medical Cente r PNEUMOCOCCAL 65+ YRS (1 - PCV)] Future Scheduled 2016 PNEUMOCOCCAL 65+ YRS ([address] [facility] 00:00:00 - PCV) [code = Medical Cente r PNEUMOCOCCAL 65+ YRS (1 - PCV)] Future Scheduled 2016 PNEUMOCOCCAL 65+ YRS ([address] [facility] 00:00:00 - PCV) [code = Medical Cente r PNEUMOCOCCAL 65+ YRS (1 - PCV)] Future Scheduled 2016 PNEUMOCOCCAL 65+ YRS ([address] [facility] 00:00:00 - PCV) [code = Medical Cente r PNEUMOCOCCAL 65+ YRS (1 - PCV)] Future Scheduled 2016 PNEUMOCOCCAL 65+ YRS ([address] [facility] 00:00:00 - PCV) [code = Medical Cente r PNEUMOCOCCAL 65+ YRS (1 - PCV)] Future Scheduled 2016 PNEUMOCOCCAL 65+ YRS ([address] [facility] 00:00:00 - PCV) [code = Medical Cente r PNEUMOCOCCAL 65+ YRS (1 - PCV)] Future Scheduled 2001 SHINGLES VACCINES ([address] [facility] 00:00:00 2) [code = SHINGLES Medical Center VACCINES (1 of 2)] Future Scheduled 2001 SHINGLES VACCINES ([address] [facility] 00:00:00 2) [code = SHINGLES Medical Center VACCINES (1 of 2)] Future Scheduled 2001 SHINGLES VACCINES ([address] [facility] 00:00:00 2) [code = SHINGLES Medical Center VACCINES (1 of 2)] Future Scheduled 2001 SHINGLES VACCINES ([address] [facility] 00:00:00 2) [code = SHINGLES Medical Center VACCINES (1 of 2)] Future Scheduled 2001 SHINGLES VACCINES ([address] [facility] 00:00:00 2) [code = SHINGLES Medical Center VACCINES (1 of 2)] Future Scheduled 2001 SHINGLES VACCINES ([address] [facility] 00:00:00 2) [code = SHINGLES Medical Center VACCINES (1 of 2)] Future Scheduled 1969 HEPATITIS C SCREENING [facility] 00:[facility] [code = HEPATITIS C Medical Center SCREENING] Future Scheduled 1969 HEPATITIS C [facility]CRE[facility]ING [facility]:00[facility] [code = HEPATITIS C Medical Center SCREENING] Future Scheduled 1969 HEPATITIS C [facility]CRE[facility]ING [facility]:00:00 [code = HEPATITIS C Medical Center SCREENING] Future Scheduled 1969 HEPATITIS C [facility]CRE[facility]ING [facility]:00:00 [code = HEPATITIS C Medical Center SCREENING] Future Scheduled 1969 HEPATITIS C [facility]CRE[facility]ING [facility]:00:00 [code = HEPATITIS C Medical Center SCREENING] Future Scheduled 1969 HEPATITIS C [facility]CRE[facility]ING [facility]:00:[facility] [code = HEPATITIS C Medical Center SCREENING] Future Scheduled 1963 Tobacco Cessation [facility] [...] Screening (12+)] Future Scheduled 1951 COVID-19 VACCINE (#1) [facility]00 [code = COVID-[address] VACCINE (#1)] Future Scheduled 1951 COVID-19 VACCINE (#1) [facility]:00[facility]00 [code = COVID-[address] VACCINE (#1)] Future Scheduled 1951 COVID-19 VACCINE (#1) [facility]:00:00 [code = COVID-[address] VACCINE (#1)] Future Scheduled 1951 COVID-19 VACCINE (#1) [facility] 00:00:00 [code = COVID-[address] VACCINE (#1)] Future Scheduled 1951 COVID-19 VACCINE (#1) [facility] 00:00:00 [code = COVID-[address] VACCINE (#1)] Future Scheduled 1951 COVID-19 VACCINE (#1) [facility]:00:00 [code = COVID-[address] VACCINE (#1)] Future Scheduled 1951 Screening for malignant [facility] 00:00:00 neoplasm of colon Medical Ce nter (procedure) [code = 758372015] Future Scheduled 1951 Screening for malignant [facility] 00:00:00 neoplasm of colon Medical Ce nter (procedure) [code = 703646873] Future Scheduled 1951 Screening for malignant [facility] 00:00:00 neoplasm of breast Medical C enter (procedure) [code = 308303773] Future Scheduled 1951 Sigmoidoscopy [code = [facility] Sigmoidoscopy] [facility] Future Scheduled 1951 CT Colonography (combo) [facility] 00:00:00 [code = CT Colonography [facility] (combo)] Future Scheduled 1951 Screening for malignant [facility] 00:00:00 neoplasm of colon Medical Ce nter (procedure) [code = 453202228] Future Scheduled 1951 Screening for malignant [facility] 00:00:00 neoplasm of colon Medical Ce nter (procedure) [code = 262384872] Future Scheduled 1951 DXA SCAN [code = DXA [facility] 00:00:00 SCAN] [facility] Future Scheduled 1951 Screening for malignant [facility] 00:00:00 neoplasm of colon Medical Ce nter (procedure) [code = 488800028] Future Scheduled 1951 Screening for malignant [facility] 00:00:00 neoplasm of colon Medical Ce nter (procedure) [code = 723463272] Future Scheduled 1951 Sigmoidoscopy [code = [facility] 00:[facility] Sigmoidoscopy] [facility] Cent[facility] r Future Scheduled 1951 Screening for malignant [facility] 00:00:00 neoplasm of breast Medical C enter (procedure) [code = 885095717] Future Scheduled 1951 CT Colonography (combo) [facility] 00:00:00 [code = CT Colonography [facility] (combo)] Future Scheduled 1951 Screening for malignant [facility] 00:00:00 neoplasm of colon Medical Ce nter (procedure) [code = 978410990] Future Scheduled 1951 Screening for malignant [facility] 00:00:00 neoplasm of colon Medical Ce nter (procedure) [code = 710974314] Future Scheduled 1951 DXA SCAN [code = DXA [facility] 00:00:00 SCAN] [facility] Future Scheduled 1951 Screening for malignant [facility] 00:00:00 neoplasm of colon Medical Ce nter (procedure) [code = 512799301] Future Scheduled 1951 Screening for malignant [facility] 00:00:00 neoplasm of colon Medical Ce nter (procedure) [code = 251596081] Future Scheduled 1951 Sigmoidoscopy [code = [facility] 00:[facility] Sigmoidoscopy] [facility] Future Scheduled 1951 Screening for malignant [facility] 00:00:00 neoplasm of breast Medical C enter (procedure) [code = 219657736] Future Scheduled 1951 CT Colonography (combo) [facility] 00:00:00 [code = CT Colonography [facility] (combo)] Future Scheduled 1951 Screening for malignant [facility] 00:00:00 neoplasm of colon Medical Ce nter (procedure) [code = 556393196] Future Scheduled 1951 Screening for malignant [facility] 00:00:00 neoplasm of colon Medical Ce nter (procedure) [code = 077971261] Future Scheduled 1951 DXA SCAN [code = DXA [facility] 00:00:00 SCAN] [facility] Future Scheduled 1951 Screening for malignant [facility] 00:00:00 neoplasm of colon Medical Ce nter (procedure) [code = 345095122] Future Scheduled 1951 Screening for malignant [facility] 00:00:00 neoplasm of colon Medical Ce nter (procedure) [code = 999462409] Future Scheduled 1951 Sigmoidoscopy [code = [facility] 00:[facility] Sigmoidoscopy] [facility] Future Scheduled 1951 Screening for malignant [facility] 00:00:00 neoplasm of breast Medical C enter (procedure) [code = 978621445] Future Scheduled 1951 CT Colonography (combo) [facility] 00:00:00 [code = CT Colonography [facility] (combo)] Future Scheduled 1951 Screening for malignant [facility] 00:00:00 neoplasm of colon Medical Ce nter (procedure) [code = 639216767] Future Scheduled 1951 Screening for malignant [facility] 00:00:00 neoplasm of colon Medical Ce nter (procedure) [code = 279528160] Future Scheduled 1951 Screening for malignant [facility] 00:00:00 neoplasm of breast Medical C enter (procedure) [code = 493451503] Future Scheduled 1951 CT Colonography (combo) [facility] 00:00:00 [code = CT Colonography [facility] (combo)] Future Scheduled 1951 Screening for malignant [facility] 00:00:00 neoplasm of colon Medical Ce nter (procedure) [code = 312314230] Future Scheduled 1951 Screening for malignant [facility] 00:00:00 neoplasm of colon Medical Ce nter (procedure) [code = 763913186] Future Scheduled 1951 DXA SCAN [code = DXA [facility] 00:00:00 SCAN] [facility] Future Scheduled 1951 Screening for malignant [facility] 00:00:00 neoplasm of colon Medical Ce nter (procedure) [code = 925299365] Future Scheduled 1951 Screening for malignant [facility] 00:00:00 neoplasm of colon Medical Ce nter (procedure) [code = 724773165] Future Scheduled 1951 Sigmoidoscopy [code = [facility] 00:[facility] Sigmoidoscopy] [facility] Future Scheduled 1951 DXA SCAN [code = DXA [facility] 00:00:00 SCAN] [facility] Future Scheduled 1951 Screening for malignant [facility] 00:00:00 neoplasm of breast Medical C enter (procedure) [code = 774689586] Future Scheduled 1951 CT Colonography (combo) [facility] 00:00:00 [code = CT Colonography [facility] (combo)] Future Scheduled 1951 Screening for malignant [facility] 00:00:00 neoplasm of colon Medical Ce nter (procedure) [code = 034347175] Future Scheduled 1951 Screening for malignant [facility] 00:00:00 neoplasm of colon Medical Ce nter (procedure) [code = 154742812] Future Scheduled 1951 DXA SCAN [code = DXA [facility] 00:00:00 SCAN] [facility] Future Scheduled 1951 Screening for malignant [facility] 00:00:00 neoplasm of colon Medical Ce nter (procedure) [code = 994114238] Future Scheduled 1951 Screening for malignant [facility] 00:00:00 neoplasm of colon Medical Ce nter (procedure) [code = 643007477] Future Scheduled 1951 Sigmoidoscopy [code = [facility] 00:[facility] S[facility]oidoscopy] Medical Cente r Encounters Start End Encounter Admission Attending Care Care Encounter Source Date/Time Date/Time Type Type Clinicians Facility Department ID 2023-02-28 Outpatient Zamudio, [facility] [id number] Common 15:54:00 Marcial [id number] [facility] 2023-02-08 Outpatient Zamudio, [facility] [id number] Common 11:34:00 Marcial [id number] [facility] 2022-06-22 Outpatient Zamudio, [facility] [id number] Common 14:44:00 Marcial [id number] [facility] 2021-10-26 Outpatient Zamudio, [facility] [id number] Common 16:11:00 Marcial [facility] 2021-09-14 Outpatient Zamudio, [facility] [id number] Common 11:09:01 Marcial [facility] 2021-09-09 Outpatient Zamudio, [facility] [id number] Common 14:05:44 Marcial [id number] [facility] 2021-09-09 Outpatient Zamudio, [facility] [id number] Common 12:38:12 Marcial [id number] [facility] 2021-09-09 Outpatient Zamudio, [facility] [id number] Common 12:37:33 Marcial 34931 [facility] 2021-09-09 Outpatient Zamudio, [facility] [id number] Common 12:36:58 Marcial [id number] [facility] 2021-09-09 Outpatient Zamudio, [facility] [id number] Common 12:35:28 Marcial 20754 [facility] 2021-09-09 Outpatient Zamudio, [facility] [id number] Common 12:28:00 Marcial [id number] [facility] 2021-09-09 Outpatient Zamudio, [facility] [id number] Common 12:20:04 Marcial 73494 [facility] 2021-09-09 Outpatient Zamudio, [facility] [id number] Common 11:44:09 Marcial [id number] [facility] 2021-09-09 Outpatient Zamudio, [facility] [id number] Common 11:42:44 Marcial 63869 [facility] 2021-09-09 Outpatient Zamudio, [facility] [id number] Common 11:42:38 Marcial 46202 [facility] 2021-09-09 Outpatient Zamudio, [facility] [id number] Common 11:31:37 Marcial [id number] [facility] 2021-09-09 Outpatient Zamudio, [facility] [id number] Common 11:26:53 Marcial [id number] [facility] 2021-09-09 Outpatient Zamudio, [facility] [id number] Common 11:18:02 Marcial [id number] [facility] 2021-06-15 Emergency [facility] [id number] Univers 20:59:37 ity of [facility] 2022-09-09 2022-09-11 Outpatient [facility], [facility] Surgery [id number] SLE 09:48:00 14:49:00 [facility] [place] [place] 2022-09-09 2022-09-11 Hospital EL Link, [facility] [id number] 09:48:00 14:49:00 Encounter [facility] 2022-09-09 2022-09-11 Hospital Link, [facility] [id number] 09:48:00 14:49:00 Encounter [facility] 2022-09-09 2022-09-09 Anesthesia Sheila Rudd [facility] [id number] 13:29:00 18:12:00 Event Radhika [facility] 2022-09-09 2022-09-09 Anesthesia Sheila Rudd [facility] [id number] 13:29:00 18:12:00 Event Radhika [facility] 2022-09-09 2022-09-09 Surgery Link, [facility] [id number] 12:00:00 15:30:00 [facility] 2022-09-09 2022-09-09 Surgery Link, [facility] [id number] 12:00:00 15:30:00 [facility] 2022-09-09 2022-09-09 Orders [facility] [id number] 00:00:00 00:00:00 Only [facility] 2022-09-09 2022-09-[address] [facility] [id number] [facility] 00:[facility]00 00:00:00 [facility] 2022-09-09 2022-09-09 Orders [facility] [id number] 00:00:00 00:00:00 Only [facility] 2022-09-09 2022-09-09 Travel [facility] [id number] [facility] 00:[facility]00 00:00:00 [facility] 2022-08-17 2022-08-17 Outpatient R RADIOLOGY [facility] [id number] Univers 08:00:20 23:59:00 ity [facility] 2022-08-17 2022-08-17 Hospital Radiology [facility] 1.2.840.114 [id number] Univers 08:00:00 23:59:00 Encounter [place] [id number] ity [facility] 4.2.7.2.686 [facility] [id number] [facility] [address] 2022-08-12 2022-08-12 Outpatient R RADIOLOGY [facility] [id number] Univers 00:00:00 00:00:00 ity [facility] 2022-08-02 2022-08-02 (TEL) STLMLC ST[facility] [id number] Co mmon 00:00:00 00:00:00 [facility] 2022-07-26 2022-07-26 (TEL) STLMLC [facility] [id number] Co mmon 00:00:00 00:00:00 [facility] 2022-07-16 2022-07-16 (TEL) STLMLC [facility] [id number] Co mmon 00:00:00 00:00:00 [facility] 2022-06-30 2022-06-30 (TEL) STLMLC [facility] [id number] Co mmon 00:00:00 00:00:00 [facility] 2022-06-24 2022-06-24 OFFICE STLMLC STL[facility]C [id number] Co mmon 00:00:00 00:00:00 VISIT [facility] [address] [facility] 2022-06-16 2022-06-16 Outpatient R RADIOLOGY [facility] [id number] Univers 16:18:09 23:59:00 ity [facility] 2022-06-16 2022-06-16 Hospital Radiology [facility] 1.2.840.114 [id number] Univers 16:18:09 23:59:00 Encounter [place] 350.1.13.10 ity of [facility] 4.2.7.2.686 [facility] [id number] [facility] [address] 2022-06-16 2022-06-16 Orders Doctor DENISSE 1.2.840.114 [id number] Univers 00:00:00 00:00:00 Only Unassigned, GLO 350.1.13.10 ity of [place] [facility] 4.2.7.2.686 Reggie [id number] [facility] [address] 2022-06-04 2022-06-04 OFFICE STLMLC STLMLC [id number] Co mmon 00:00:00 00:00:00 VISIT NEW Spir it PT LEVEL 3 - [facility] 2022-06-01 2022-06-01 (TEL) STLMLC STLMLC [id number] Co mmon 00:00:00 00:00:00 Spirit [facility] 2022-05-25 2022-05-25 Outpatient R RADIOLOGY [facility] [id number] Univers 00:00:00 00:00:00 ity of [facility] 2022-05-15 2022-05-15 Outpatient R RADIOLOGY [facility] [id number] Univers 09:04:27 23:59:00 ity of [facility] 2022-05-15 2022-05-15 Hospital Radiology [facility] 1.2.840.114 [id number] Univers 09:04:27 23:59:00 Encounter [place] 350.1.13.10 ity of [facility] 4.2.7.2.686 [facility] [id number] [facility] [address] 2022-05-07 2022-05-07 [facility] Radiology [facility] 1.2.840.114 [id number] Univers 09:00:00 23:59:00 Encounter [place] 350.1.13.10 ity of [place] 4.2.7.2.686 [facility] [id number] [facility] [address] 2022-05-07 2022-05-07 Outpatient R RADIOLOGY [facility] [id number] Univers 00:00:00 23:59:00 ity of [facility] 2022-04-302022-04-30 Outpatient R RADIOLOGY [facility] [id number] Univers 00:00:00 00:00:00 ity of [facility] 2022-04-21 2022-04-21 (TEL) STLMLC STLMLC [id number] Co mmon 00:00:00 00:00:00 [facility] 2022-03-23 2022-03-23 OFFICE STLMLC STLMLC [id number] Co mmon 00:00:00 00:00:00 VISIT [facility] LEVEL 4 [facility] 2022-03-22 2022-03-22 (TEL) STLMLC STLMLC [id number] Co mmon 00:00:00 00:00:00 [facility] 2022-03-17 2022-03-17 (TEL) STLMLC STLMLC [id number] Co mmon 00:00:00 00:00:00 [facility] 2022-03-09 2022-03-09 Letter DENISSE Silva 1.2.840.114 [id number] Univers 00:00:00 00:00:00 (Out) Be CODY 350.1.13.10 i [facility] 4.2.7.2.686 Reggie as [phone] [address] 2022-03-08 2022-03-08 Laboratory Only, Ang Db Test [facility] 1.2.8 40.114 [id number] Univers 09:15:00 09:30:00 Only Janice Fowler [facility]13.[facility] 4.2.7.2.686 Reggie as FABIO?BLEA [id number] [address] MEDICAL OFFICE BUILDING 2022-03-08 2022-03-08 Outpatient R MALCOLM [facility] [id number] Univers 09:15:00 09:15:00 JANICE teague o f [facility] 2022-03-08 2022-03-08 OL DIG E/M STLMLC STLMLC [id number] Common 00:00:00 00:00:00 SVC 11-20 Spir it [facility] 2022-03-08 2022-03-08 (TEL) STLC STLC [id number] Co mmon 00:00:00 00:00:00 [facility] 2022-03-08 2022-03-08 Ivis Humphreys [facility] 1.2.840.114 [id number] Univers 00:00:00 00:00:00 (Out) Elenita HEALTH 350.1.13.10 it y of [place] 4.2.7.2.686 Reggie as FABIO?BLEA [phone] La dical KNEY [address] MEDICAL OFFICE BUILDING 2021-11-20 2021-11-20 (TEL) STLMLC STLMLC [id number] Co mmon 00:00:00 00:00:00 [facility] 2021-11-18 2021-11-18 Outpatient R RADIOLOGY [facility] [id number] Univers 15:31:25 23:59:00 ity of [facility] 2021-11-18 2021-11-18 Hospital Radiology [facility] 1.2.840.114 [id number] Univers 15:18:50 23:59:00 Encounter [place] 350.1.13.10 [place] [id number] [facility] [address] 2021-11-18 2021-11-18 Hospital Radiology [facility] 1.2.840.114 [id number] Univers 15:00:00 15:17:00 Encounter [place] 350.1.13.10 [place] [id number] [facility] [address] 2021-11-04 2021-11-04 Telephone Aspen [facility] 1.2.840.114 [id number] Univers 00:00:00 00:00:00 Saleem Powers YUNITON 350.1.13.10 ity [place] [id number] [place] x[place]ilt GALVEZ [address] BUILDING 2021-11-03 2021-11-03 [employer] [facility], Ang - Db [facility] 1.2.840.1 [id number] Univers 14:30:00 14:45:00 Visit Saleem Louise [facility] 350.1.13. 10 ity of [place] 4.2.7.2.686 Reggie as FABIO?BLEA [phone] [facility] [address] MEDICAL OFFICE [facility] 2021-11-03 2021-11-03 Outpatient SALEEM REYNA [facility] [id number] Univers 14:30:00 14:30:00 SALEEM LOUISE itbrenda [facility] 2021-11-03 2021-11-03 [facility] 1.2.840.114 [id number] Univers 13:40:00 14:21:43 Visit Saleem [facility] 350.1.13.10 [facility] 4.2.7.2.686 Reggie as FABIO?BLEA [phone] [address] OFFICE [facility] 2021-11-03 2021-11-03 Outpatient SALEEM REYNA [facility] [id number] Univers 13:40:00 14:21:43 [facility] 2021-11-03 2021-11-03 Orders Doctor DENISSE 1.2.840.114 [id number] Univers 00:00:00 00:00:00 Only Unassigned, GLO 350.1.13.10 ity of [place] [facility] 4.2.7.2.686 Reggie as [phone] [address] 2021-11-03 2021-11-03 [facility]phone [facility] 1.2.840.114 [id number] Univers 00:00:00 00:00:00 [facility] 350.1.13.10 ity of [place] 4.2.7.2.686 Reggie as FABIO?BLEA [phone] [address] OFFICE [facility] 2021-10-27 2021-10-27 Orders Doctor DENISSE 1.2.840.114 [id number] Univers 00:00:00 00:00:00 Only Unassigned, GLO 350.1.13.10 ity of [place] [facility] 4.2.7.2.686 Reggie as [phone] [address] 2021-10-26 2021-10-26 OFFICE STLMLC STLMLC [id number] Co mmon 00:00:00 00:00:00 VISIT Spirit ESTAB PT - CHI LEVEL 4 [facility] 2021-10-16 2021-10-16 Emergency X [facility] ERT [id number] Univers 13:30:00 17:54:00 RENAN magdabrenda [facility] 2021-10-16 2021-10-16 Emergency [facility] 1.2.457.411 [id number] Univers 13:30:00 17:54:00 Renan LAWRENCE 350.1.13.10 i ty [facility] 4.2.7.2.686 [facility] [phone] [place] [address] 2021-09-28 2021-09-28 OFFICE STLMLC STLMLC [id number] Co mmon 00:00:00 00:00:00 VISIT Spirit ESTAB PT - CHI LEVEL 4 [facility] 2021-09-22 2021-09-22 (TEL) STLMLC STLMLC [id number] Co mmon 00:00:00 00:00:00 [facility] 2021-09-17 2021-09-17 (TEL) STLMLC STLMLC [id number] Co mmon 00:00:00 00:00:00 [facility] 2021-09-15 2021-09-15 OFFICE STLMLC STLMLC [id number] Co mmon 00:00:00 00:00:00 VISIT EST Spir it PT LEVEL 3 - [facility] 2021-09-15 2021-09-15 SUB ANNUAL STLMLC STLMLC [id number] Common 00:00:00 00:00:00 MCR Spirit WELLNESS - [facility] VISIT [facility] 2021-09-14 2021-09-14 (TEL) STLMLC STLMLC [id number] Co mmon 00:00:00 00:00:00 [facility] 2021-09-08 2021-09-08 (TEL) STLMLC STLMLC [id number] Co mmon 00:00:00 00:00:00 [facility] 2021-07-21 2021-07-21 OFFICE STLMLC STLMLC [id number] Co mmon 00:00:00 00:00:00 VISIT [facility] LEVEL 4 [facility] 2021-06-22 2021-06-22 (TEL) STLMLC STLMLC [id number] Co mmon 00:00:00 00:00:00 [facility] 2021-04-21 2021-04-21 Emergency Mary, [facility] 1.2.840.114 [id number] Univers 17:57:00 20:45:00 Willie Lawrence 350.1.13.10 i ty of [place] 4.2.7.2.686 [facility] [phone] [facility] [address] 2021-04-21 2021-04-21 Orders Doctor DENISSE 1.2.840.114 [id number] Univers 00:00:00 00:00:00 Only Unassigned, GLO 350.1.13.10 [facility] 4.2.7.2.686 Reggie [phone] [facility] [address] 2021-03-11 2021-03-11 Outpatient STLMLC STLMLC [id number] Common 00:00:00 00:00:00 [facility] 2021-03-04 2021-03-04 Outpatient [facility]C STLMLC [id number] Common 00:00:00 00:00:00 [facility] 2020-11-28 2020-11-28 Outpatient [facility]MLC ST[facility]C [id number] Common 00:00:00 00:00:00 [facility] 2020-11-24 2020-11-24 Outpatient STLMLC STLMLC [id number] Common 00:00:00 00:00:00 [facility] 2020-10-21 2020-10-21 Outpatient STLMLC STLMLC [id number] Common 00:00:00 00:00:00 [facility] 2020-10-07 2020-10-07 Outpatient STLMLC STLMLC [id number] Common 00:00:00 00:00:00 [facility] 2020-10-06 2020-10-06 Outpatient STLMLC STLMLC [id number] Common 00:00:00 00:00:00 [facility] 2020-09-16 2020-09-16 Outpatient [facility]MLC STLMLC [id number] Common 00:00:00 00:00:00 [facility] 2020-09-12 2020-09-12 Outpatient STLMLC STLMLC [id number] Common 00:00:00 00:00:00 [facility] 2020-08-26 2020-08-26 Outpatient STLMLC STLMLC [id number] Common 00:00:00 00:00:00 [facility] 2020-08-04 2020-08-04 Outpatient STLMLC STLMLC [id number] Common 00:00:00 00:00:00 [facility] 2020-07-30 2020-07-30 Outpatient STLMLC STLMLC [id number] Common 00:00:00 00:00:00 [facility] 2020-07-01 2020-07-01 Outpatient STLMLC STLMLC [id number] Common 00:00:00 00:00:00 [facility] 2020-06-02 2020-06-02 Outpatient STLMLC STLMLC [id number] Common 00:00:00 00:00:00 [facility] 2020-05-29 2020-05-29 Outpatient STLMLC STLMLC [id number] Common 00:00:00 00:00:00 [facility] 2020-05-28 2020-05-28 Outpatient STLMLC STLMLC [id number] Common 00:00:00 00:00:00 [facility] 2020-05-27 2020-05-27 Outpatient STLMLC STLMLC [id number] Common 00:00:00 00:00:00 [facility] 2020-04-22 2020-04-22 [id number] Common 11:39:00 11:39:[address] [facility] 2020-04-15 2020-04-15 [facility] [id number] Common 15:20:00 15:20:[address] Family - [facility] 2020-04-07 2020-04-07 [facility] [id number] Common 07:48:00 07:48:[address] [facility] 2020-04-03 2020-04-03 Laboratory Lab, [facility] [id number] 15:59:39 16:19:39 Only Fam [facility] [id number] [place] [id number] Professio [phone] nal [address] 2020-04-03 2020-04-03 Outpatient R [facility] [id number] [id number] 16:00:00 16:00:00 [facility] 2020-04-03 2020-04-03 [facility] [id number] Common 11:15:00 11:15:[address] [facility] 2020-03-07 2020-03-07 [facility] [id number] Common 08:15:00 08:15:[address] [facility] 2020-02-27 2020-02-27 [facility] [id number] Common 11:04:00 11:04:[address] [facility] 2020-02-25 2020-02-25 [facility] [id number] Common 10:39:00 10:39:[address] [facility] 2020-01-30 2020-01-30 [facility] [id number] Common 15:45:00 15:45:[address] [facility] 2020-01-30 2020-01-30 [facility] [id number] Common 15:45:00 15:45:[address] [facility] 2020-01-09 2020-01-09 [facility] [id number] Common 11:17:00 11:17:[address] [facility] 2019-11-27 2019-11-27 [facility] [id number] Common 14:00:00 14:00:[address] [facility] 2019-05-22 2019-05-22 [facility] [id number] Common 16:00:00 16:00:[address] [facility] 2019-05-08 2019-05-08 [facility] [id number] Common 16:15:00 16:15:[address] [facility] 2019-03-20 2019-03-20 [facility] [id number] Common 08:20:00 08:20:[address] [facility] 2019-02-13 2019-02-13 [facility] [id number] Common 16:15:00 16:15:[address] [facility] 2018-11-24 2018-11-24 [facility] [id number] Common 16:23:00 16:23:[address] [facility] 2018-11-13 2018-11-13 [facility] [id number] Common 16:30:00 16:30:[address] [facility] 2018-09-28 2018-09-28 [facility] [id number] Common 15:00:00 15:00:[address] [facility] Results Test Description Test Time Test Comments Results Result Comments Source Tissue Exam 2022-09-28 07:24:40 Test Item Value Reference Range Interpretation Comme nts Case Report (test code = 104) Surgical Pathology Report Case: [id number] Authorizing Provider: Stuart Wylie MD Collected: 09/09/2022 05:13 PM Ordering Location: [facility] Received: 09/10/2022 11:48 AM SERVICES Pathologist: Ada Locke MD Specimen: Mass, Left renal mass DIAGNOSIS (test code = 3220) u9qcfRAcXQZfv1jrBBHnwNIbNwLhUwNoNyFrGr pc dWMxIHtccnRmMVxlcGljOTYwMlxhbnNpXHNwbHRw T0HmaiuvCShdYR8dGC1ruGpbjIBksKFaHVSgVlOl m3ken775bPIgm7clKOOBkftptRe5oXodF38dl2O2 BmtuW70gxESqQRC8LGZbIGMdkJMaTEPmZRP7YEWc lFLkE5awMRBbKC0tdxfkKCmtKNejPWNhpCE2PZMz wAEgM0ZvKJMqBSrwVOCowad5AuUjGc9iqVHghAuj VVqpDPNrRGNhFHjuETHeLbTwM7mLRwXMNSMRWQTJ BLHXAVLGBCKBYC6FMEjRHVWJY93HLyxvKFAzhOBx XP8kP1wHTJWxJ8AQHRCLVJ9NVOMCUNxUYEXASvVO Ss3EXLacD5aRC1pQHOYsY8OKHYXpU6mkFOQusYLy XE7dROHMN6MlN7egEYotEP23BCXPUYuQPkDHONPW MLNMFc1RFyIOMN7LTdQNR49hWSOfnxu8UOZdPISD QR9YIiYYJD0FZZYSNQYVJTzNJG8CRKgeEJGchSXr GK5bQa1hQ5DFS37HKAKHAGNiGlTVJJNXBJIaKUXZ OiNITmrYSDjnLBJxqEYlIN7vWm2cOprWRwEDNDDl WrMFITSJRMPiZQPQPdKZGsrWEYufNZAwkBBePS2c Lv6iBFvUPTjTLaRQO6EOAHQtOI0DIHPKC25xOUGV BbMXBpbJBUvqAYVkcQYhQG3dPHEBC7AdZTAKBTXx JLzNNDQADtDPK2xKNUSDBDGYNfkAU5VDHT7ZJjtT CmnzYVCnqHRfXM4vH8ZSVyVqBp4LFS3DA2ALEGPC TAXxD1yNVnUAVEoUTEfzKhOEKESDU7eCGr1SCXMr V2yHNZRAATkFMZStii91XBU4CdDel5W1HAT9FTCr XWZhz0epKQGhpLQmGkHzUrNwNiNjYcenhLBhXKJy JeYpq0xpm575dCQto6lvPJIjAkX8wYCzPNPjjWVl V873UUBjJJhuv7wof4OtPQOvcLPni5Z0NLGOrlbm pJp7uBmxF15kh3H4XbhzO5spNMTmBOTdE3YwLA2l NDGoKah5TZX8DRY4LGUnVZVwC7YlEO0mCPNzgBQm CRk7a8hwcLovZEXkVNG5i2pfDNuxatTwEI9ioq3j pQw4p1kwieMqURKvAQHxsLURVGMjL7ZroIdbFs4k mMq9kIkqCmvuNLW0Rzx2NC8xai72ycr4pJmnVBWr nzqwEtY7PBfeAAWnzupuRSr3BIhnIHFgxGL4OBOq jXJaL2JmHFBkCA3ydyr5GMX4VDixLPGvCsG2WBXh xYXsZEBcsTwqKXctj258LIY4XwRlHC3kQ5Brm0K8 qI1ucQTqCDDxdGFfXbYhIMUuts7hfNQhJXsxu3Se OYM9zdI4hDJrvZMpDPMjFyU3ANdaSB9qca74HLDt AYR9lh5xnAUklFusdkPlhLWrUEanJ0KgXKPgw445 ZMObV6WgTAGkn8X5xdLpPpZzNKZutZQ4keV3UYKd LZ3pmsjaj5vvVDlzLWyeYIVyccU6xwZ8CAOsuRNi E9AagN4aXMGyJA6sionwe9paTYF1VAllHDPkWME8 JvFqJPYzg7Lrdtd3LcYkq8QqfZJaXBspL50rc880 MOBwvhBgW2pbiFZbinkmiXTrqlaxLNsxwlD1SUXc ATimbhpiAEWtDCyrN3bbKbCbQWCbwHbkODbfj5Ys HGYoPXQmZaJawYHwZDRpXdc9AIGzdXPqARVhTlFn Q1dxxfpoCrIGYXYlj7ukR7fgiOQRmJWbI4ZnAXng okDvCYieAHgvJzDrEZf1KF91QiQtAFOvxr65 SYNOPTIC REPORT (test code = 5765) KIDNEY: NephrectomyKIDNEY: NEPHR ECTOMY, PARTIAL OR RADICAL - All Lgajtehzo0wu Edition - Protocol posted: 02/11/2021 SPECIMEN Procedure: [...] glomeruli CPT Code(s) (test code = 3357) a0epmNSrCXAxuCF4HtDvWKVwc5mtb4MkzNVu cGFy XQckxEMeqlEkpo31jIZ7jN69II0kSVLwXsO0MEVq wsY2Lys4QBOjXWSkeGWpS427w2bdk9isbgCvgBS9 eCnxJDMbxjpcSaO2POfdWDFdfetxIOf0NBtoHAVl vGN7DZFlfGBhR3SvQEPdAM1adlx2FIO3XKnhHZIe HnH4PFVaxKHaXFDhiRzqJPmvk472VGP9UkBaFXCi yqKwpFwtcZ9gIaIfNYO1NTTuX4lkODYsUZyyASVz cGFyfQ== CLINICAL HISTORY (test code = 3356) j0uqnZJoGWLggYX8TuZkDETyd6imp1R sdHBncGFy LDcvjJFphnOaow38aSL5iB81AW3xPXRvJwB2ZIJg dfJ6Cmq3NWKnGKTnsMWmI735x0yjb7mcvyIkbBU2 gHqqSUSnpynkSsW4YPaaARZmzkydTWk5BKhzUDYa pXP1GYFdvZOhK1PuXWUkZB9vgzh2RWQ4CPzhUSSn UtT0MPWloDOaCZYpzRugGWznk396OEV7EpCeIBXm ujQohPhawJ9uBeQtSFZXIM4ezQQdAHVdEHPihb5= SPECIMEN SOURCE (test code = 3377) f0wcwEHhHWVjzOA5NiFgDNRnv3vqx9La dHBncGFy PGxepECrktGjns93oUH3eX17NS8tVKArKjR6VVVh ivX4Wyf1XRCrAFObdGJkW693q3wun1xcfzJflPO0 nRdzJTQwdzxvIqC7ZQqeAICiopiaWWq1DPrdJZIs vAO7OFCinSIzO2ZhMSSeGP9fsfr6TLV9DWfnDYVh LxJ5ZYXqwFBgTYEayTmlRVhwn192HRU3XlQxEQMw lrBxnVndiP0iOmFvDLOPQpWrD2hdmgN6CLFcQFI3 LCBtYXNzXHBhcn0= GROSS DESCRIPTION (test code = n9pttAXsXOKoyPX2VtZeWEOec5yjt4VqnTNf cGy [id number]) [file] pUImHWC6RP7dyAzvNIA8 MICROSCOPIC DESCRIPTION (test code = d1ecdBQjUWEomQO0NoXnJNZyy8rhd4 BsdHBncGFy 3371) UCsziSXkteFrdw22fQS6sS35SU3kTCNpAyL3SRKh zpJ2Zzt8NODdXOIkqGQiM548k1dyj9jrffRkuGN1 bXogBYYrsojsMsH7REelLCChxwylKWv9DQbdELMt oQN3YNNvwJQjA8PoOSIgTS1qgpc7GAO2FHegYWTi HuF3EETvwZFtQTBckCdiQPnyj361KKN5SjOwMWOs ilFxcKziiC0uUhTaYAKWQbN1FWaxadYdSEEtv7Qw DYGjb9e7oBAdjGNwo3PugZB1AQPot926yf2rDRNh udNbcNjfWEM0RMnyGHxoJFvzrNGpjZJocFOpEOQp JY2qT1Y4pMJlXpNApNm4kYAdXWPjIEEqvFXjb1Aw vZsrIEQigdRkL1h3dDKaHH8kajfsmfO5VZRfENL4 TW8avaKaEManQBRlGBPrzIVgADOzvlKidElrYQSh ztwpIs1eEKgjlIAqNqZ1jdO1iSitPI5zhirrom3c XHBhcn0= SPECIAL STUDIES (test code = 3376) u3hieUIfLBVyk7deGTKvoOZjOzPcQfNi ZnRuYmpc aTUhEQhohcRwQBfua6RfG1RnGoHcWAiqumCdNGRg ThinpwimWSJlHQO5stJwQLCrTMkeOYTwVTtsJm5w kHKqmVziJyKzQREph3dapgNOmrpjfZb4u7hfMZOn KhA4aCPrGXljI1elzmKtzEZvM7RblTTvzXr9i9ad NoQjBeS9iTYlKQmjK1scmfNhpNKzXHLyCOt3sQ71 TCTdeX4ysIYbQYlhjoSlCxR6FPkgSOBmLzA6GBJf pREfKHOzX9lmEAZfCRnbUVWuVFbabHXuKPD6fFjz r9J8rPQpyXFbzDllRqWuIxRfUlXEr6CtRLi3eTai E9PxUOMjHhO8uFWbVVNcYTowHTTwPYMnbbC7hLvh dqHkq24htZEoQXCcPQUwEsEitXerYEJlRUIIw9Fr yLbgZZA6gGx4kFlgRndzYKX8Bmd2TJ5aho84frr1 hGpdXMEzvilqVbU3TKlySYCuxjvnCOq3EZuxKGTg bIW7RIEvdJAsJ8WuDBXrUQ0lbdl0MJJ7RIwwOOKm FaF3YQFmlMUpHPXjmYutSGuil435CID9EsAoCC8v F2Evo9T2fO5ujNJjSNHtaVMfHhPhABVwcf4meMCy YItks3AuMHR7ucX1lCZrdLKsGMFqDP75Jhsvf0Iy Jpcbk4PfE72dtYK4ZZivy7jsZM4sWtJ2kbUyPVyn s9ltmZ3bErW3EKccLB5pEK6bSRColQ9qgsooKLOr OxHgozubMOIaxLjemmAkWl4whNzpWMX5XWlsA7je vF9lXbR0DYdzL6wnsP1mDEt8KFeqiBU7ILTceV7q RN3vujbvg5aiNGgxRQtvFHFuncH9ynE3KYNgxNVf Z2SglP9uWTNiEW5xngofi6neEWG8XBvxJFMuIWD8 EaNdLJXlz2Orbnw6AjEmk6QitEIsTUktJ82rv534 LBSzgnDkP0ssiCDzmvumdYEumeodGUqvkfI6TEHv XHBsYWluXGYxXGZzMjJcbGFuZzEwMzNcaGljaFxm BQawNrRuHUJlIJkzP3vaHaDmM1LwJWXwGoHaNDph DWoeyYEphWXxkLE7hL7tGP2yGIMdxRSyF9NkYKMp qbJwhQKxJFS5uXIigTZcYA0jKGhurJJop5hjr0Xg Q2rqeHpghSD4ID1pHRTeXWUvMAwqh9AndA5qMiup zNUtvyunWGudfsTdEWmbhsskZFMkEUnbH1juLhMy MHPlfYewOSifn2EsNRGfNJTlFcggkbHeFZs9kbLb NDXtmlbrSLLrrZkkjY5cMgVsTsYsLksjOJ1lCTXe T4fqhJQhIDSeZLQfQ2xpYzYwnI8zhCedSDsjXdTs KjGlPyAFg103rr3cJSNkdXAaotIMoXAydW7sMJyr HSypVAoaqBTgICyld2hxRHKix5j4eRQxYKOfonQo x9btDDxbspStOKJniSYslMFzBHUqq89aSCzexBzg hWvqFJWac4LkqEshv3ZvFuRtSMtfl0FoU30pvWBv fZGzhAsfPEDlteJnFQJka92ok3tyFCOiKnV1iVTd fBH5fDUtfGPgc0HsxKepXJJde8ygJZGgbp2brhmg dJLdx7KcfJ8rgsqaTGiiiLCikdNbKXJat5k0aAEt GNVoAPWaXJztgKa0IHTkv283zw5rwwL3zKVuEPU2 YWlsYWJsZSBhcmUgZXZhbHVhdGVkXHBsYWluXGYx XGZzMjO[facility] – VinitaEwMzNcaGljaFxmMVxkYmNoXGYx VHbfU8hgWvEfX1GuXENbGyXmcBQaO5ixlAFtKPGp YWluXGYxXGZzMjJcbGFuZzEwMzNcaGljaFxmMVxk NjDrYPMxEIavS6fiPjWlJ9KuYJHhMfWbVIgkiQRw zyikAAlgcqXxYPiczxqgENMxKCutN9qjJwZlAJTw dRomEIkli6PsPHShLMHzVrwyjiFkLCz0ekCeVDHs dplwvHNyhqikKTjlzwYyYLzwoeopUHXoYSpqS9ky [file] GatxYYL7fF== Gross assessment was performed at (test [facility] C enter, code = 2777) Department of Pathology, [address] [place] [address], [place] [address], Technical component was performed at [facility] er, (test code = 2778) Department of Pathology, [address] [place] [address], Professional component was performed at [facility] enter, (test code = 2779) Department of Pathology, [address] [place] [address], [facility] 07:24[facility]40 Test Item Value Reference Range Interpretation Comments Case Report (test code Surgical Pathology = 104) Report Case: [id number] Authorizing Provider: Stuart Wylie MD Collected: 09/09/2022 05:13 PM Ordering Location: [facility] Received: 09/10/2022 11:48 AM SERVICES Pathologist: Ada Locke MD Specimen: Mass, Left renal mass DIAGNOSIS (test code = w2omnFEhBADdw1uyLJLgfIG 3220) uZzEwMzNcZnRuYmpcdWMxIH tccnRmMVxlcGljOTYwMlxhb rYoUATuiMTwJ7NizmvsHTyz QP7qYJ3zrOgxnWYnnLYoUQF mOoWke5tsj872pIZxa8mbJV MBkfviuSc4zSxxM94zj4W3L wgxO60rqPKkIKN0HYPnJKCw aFKzVFTtYHW8QZFeePCjX5n lIVGwTE9homuvFPvmQIokHG RtuMW1XSJlvRXyB7NuKSDnL IvuNFYiqxz3JcNeKj7meBKf eTcyMFxwYXJkXHBsYWluXGZ vQuUkJ2dWSqHXYIYEMRUZGT WEGZEAHHQTFK3HZJzPVCDRR 23ISiimFCCweUIqCW8rO5hM WZIvA3GCQXACOD5FIHSTRXq IYTSDXeREEr0ODElpE2cXA2 bGRNSsW7EDYAYmV2udOYRie ESrWU4aOHNFQ2GgA2jbEJzu VQ13GDOIYPtSLhGQHAKGDAS MXd1WEuGHKQ2CYpHGJ89aZQ Zpmhl0WORuIMIMWT9JRvGMS K6IZDRBBGMCDGwYDR8SVKwz IHTesUFjLW3bFi6fC6EYI16 NQVRPSUQgRkVBVFVSRVMgSU RFTlRJRklFRFxwYXJcdGFiI Z1xSa2oKdtQYfOZHDRlFfBI VFVSRVMgSURFTlRJRklFRFx vQNNgaHNyEL6jBx2qVSbTOF yUHhGNT2QTSIJkAH9PTGINE 04gSURFTlRJRklFRFxwYXJc gCQwDR0wIRAGU8VdSACXZWK yZOuJGAHQHxZHN7oSQKQQEM SSUdaXK5VYOJ5PJhoDTrkoM EDzhRSvGU5zY4IWZwJkTc4R JH0PW3WORAMVHPKxZ8sLIeA YVXxFZEowWkDFHUSHR3xCQn 0GKEIwJ7kOFQKOSZaZUTYqp n30KNU7HeZve6N7BXB5CWPs JVBbk7zxDCRroYFoNaCqGoC cZnRuYmpcdWMxXGRlZmYwe1 itd070bUCfa5eeATReCxT6v ZQsFDSehJQgZ517DTPbQXod q4aqj9VtLKIsjCCiv0B8JIS LnfrsyLp6mVmjR27ii9U5Ot ehN9csTRMdGRUnZ1BhLO5tE LIzCxw5LVL9TPS9EWKsJOLp A0TwLC8kNWSfqTKzZDh2c2q pzPzuWKTtXIV8i1trCKjdhe ZaIV8fiw8ypTa1s0osmaGcR LRmFYMfjLYGJYXoW8FagFdg Sj1ydCw2wTcsKtmgQXY9Czm 2AI2qwo97uuw4oSilBPRdyi reFtV5MIxzCEKvhqxzHYc4J BhgVNUklXS6CGKrdONpT6Nk ECPgKL4uymc0AIB4FMvfAXM mKeT0RIYqjEGnWBZbrKtbML rqk678GBF4SzRqOF0tM5Ugi 5R0iD3kzKRoASNwyWJtFbPr LILksv8yvONnNOzwt9IqTKC 3tpM3gUVauTWcNCYzAeD4UK rnIH4lej48OUEyIUC8yn1oh SGrrHhsspVwhUMhUWehA7Rs JXXzh103TEAdH9BmHLGyg8F 0wnYnDqXsPDNkqXZ9frO5XP FqFB1hkztkk5oeYXrjYMlyC YPdqaX7gnM9GDEneLKjY9Nd sA5pQPXkYK8hzpoau9zeLHO 0CQerEKLcYRT3IkUcAVGrx3 Ciaey3PdNbh1HclZSjJUazF 28bh623VHCxzlYzS1vtrPWu dbeklMRmutasRNcgxvJ7EXW uPLuqihefMMUuKAppL2uuOa WkILPypKadNIhnw5UrAGCkQ NEhSaKxwNHyJQAfGmz0YHAo aCRsIDTlYjPpD4gtjkziNsV UWMVin0inT2vfzXUHxEZaC6 QgUGhvbmUgTGluZTogNzEzL Og6IL95SpBcWBLnlc45 SYNOPTIC REPORT (test KIDNEY: code = 5765) NephrectomyKIDNEY: NEPHRECTOMY, PARTIAL OR RADICAL - All Ciwvieebr8pr Edition - Protocol posted: 02/11/2021 SPECIMEN Procedure: [...] Rare sclerotic glomeruli CPT Code(s) (test code f5bykZXaDBSbcTN5RnEbXXN = 3357) zg7wrf0MraOGxfVTrIIkosS AhqgHbda67gAE0wE13TA2dR YHvLxE7VCZtxyD9Ujt7QPCd MKHibTRaR177x2kus3qbkcV lsWJ1dAqvMQGznoscDfM7RW nsNFFfbetrAUr0NAioMDRwk FH9SDOadBPbF5GjKIAnST7j jtk6ZFC0BNnsCJUfUyH7KLJ jcSSuIKUlwEjgVLtyq096BS O7YfYmZGShwdZjeBmbyI2pQ mSfIKG3PUPtQ5vhNLDkMUeq NDJccGFyfQ== CLINICAL HISTORY (test w2qlyALjHIEheHO1WfKyISH code = 3356) fd2ywu7CoaGYmkLVfNPvkvV HpygLzhf20kIB4xJ46TY9vG NEpIbY8BOBukhK4Zxt8RREj ICChtUUxF671l1hxa6hmbsK rkKH7jWxvHLYccubcBxT0AQ naZZDmgnpnULk6WFmcCZKpk RH8IXZjkGOwN8OqBFDsPQ3e ugr2BNA0JWqhQXEzHyQ7DWC feTCnVHUlcLopSUmxl808MD A2GuXiUIEkgrMlyYjtjC3zZ lOxYRDRON9dgJBvTMAxRJCx cn0= SPECIMEN SOURCE (test b1xmhMCkXRWplDP3ClRlIME code = 3377) vc3fhe9AbmDRygGSiMWllrV PnhcNbjf22iZC9iN08OU2iL VWhTnA4RACxaxX3Xxg9YCKf DVToyDCzZ751o0jph6ytxnD wpBJ6eBeyMHNrlmfpGvG7AN eoOTEnnlqsNVe0WWtkOHTch ZM5FLLgmFItV0GdJCJjUW0p xad3DIZ3NLcfEIOkMkP1ABU wvPVlGZQwpKvnRLqlv718CS O9PgOdXIAeyyAiqOubnL1bE mTtZNVVZfSnE9nymkB7EQVp XCJ5FPDeOFYwNYYode8= GROSS DESCRIPTION c8cwmLGqREIzwCF0LoStEWD (test code = fn7qqz0MjxFXzsWOpVQtsuE [id number]) FdwtMqyd43aDY9jP40RH5kD MQaYvB0RJNpvqG9Qea0QWEy QPRjbKDnR163k3elw4aweuL oxKX6MWYkTTYaQ1TuTG1oBL VfdQGqU68tkQGnWJG9PEMqW FTpdFIeRUKkNOK0XUXtaFKy T7rgMLQgCH3uurftIUfyUAi pREAjaTH5UWHoxKNoS1YdJQ QfJBoyEURrsby3NeKjIk4ez FTflIopCVpdXZPzz2bpVXIq uYFeUTG3CQqrdGFiEDRfJJL eICy1ZFVbOBvqrKReVK7btB hyClkrcQlok3FfqXRnCVjwR SBuHKSxTZncKFTcZ3CMOJEk KbszQrL2CmBkHBs3XGzlR1F BCHOqPHEuGkW8NbfhLmJ2MI z9ODZAUh1rIzB7PDDbYNi5S JP4NNYkSEnrwXWvXVpgHwdt BIifYEBrlJRdHXjisuV0LMZ gYYxwDAVqEoFbAA3nPSUrcl 5oaDEiPSJqWxBjEzAeTMx9T TArFfEsa4ssKHjpXrYwMBKo k6r2pOE2jDCscUP0cGLrwJn gHN1ltILvRW5BQvDtzfTzP4 LpVIMqyCqzSxIlNQa1T3wkE pBslNMskTSnAW3wwPZfHWAy AUEwPAa0UWOqIVEuRmv8NDk nIEFjFFVoFPR4BLVqR6HxJH yfFQHyADHsAD79HFwmVk31L QwuAv84XWcsOzFiW75euUGn KQ5sOUKyJBKzltHvF6VkeAL yoPoxgQRaKIJnrxFdwL3nsH Z2rCEhITJvq7idfionpWPut wBcTD0dqA55EY0wRPLcoedy ISRdasrdGXRnrGZgTO6iKGa qVK6yIVhvHz18TSumCNEvqQ DnEHXmA7Bez24ezizbyeY1A XTeeqEzXJfijKzmV9jjQ1Ks l9FnqOGmNVR8GJ4zwZlfifO fi0LqoHp4FGqloD2wseniA3 siSW6ex3Tzx0sgK0snxSEwO QBdfr38nV5kxHOetEB5xROr h1ViKMHvlKppVBBsKAFxYCH ubEDzJGnov8GbW9LsHBAxGL J6AVVgGKJ4ZARzXKwqKACaX HTwqZOtNJU9rDZpafziyGqz CQQcbsWcA8s9iIHmKU8wxql qeoTfrzCnC78yESTdp7y5sR sbOKChGEQabEVqVqG2uLOnR 1Cct5OmYGhjcMRtzmWxrvCt af3to1p6GCRsorWibvTyCYA vIHRoZSBraWRuZXkuICBUaG NfAYAjqtJrvB7zrPNqCFTvC F0ksyYkvV2qdnPhiCJgMOMv FR3dqGSjGASxibXuqW6rAeF nIXqqBQ3vp1TotIGhb5UuyQ w6qQKfCQOenCjwUXl4BCfnZ QPua5VwcNReBVJtZIVyFl0e bJntBOhxQFXmZQ7kIRKbCVW 4GRexYTGmTja7OZmnINOgHM 0zxSfiPXtzpBGcA5swYHWpv xUNxXSzaxGVSUJewZrcV5Xo cmluZXBocmljIGZhdCBtYXJ ogH0elBOcDWQviyBdXRFbKW NmTZrdMYAVVTHinFMyz3uzt Etfr9FwoVNqZO43UAMhgTQr MEH3QS6dpNulGLL7 MICROSCOPIC x5lycJKzOOOqmIS4GrSlUOT DESCRIPTION (test code nk2rfk4YofAIyhZGuUEuwrS = 3371) CplvGvyb93cNE8kX23BP8jD YCtXuI5KYCkzhW7Ggt5XLDl RFGksKQeU062z8cbh5xciiI wuPT9zGhhNPZtrkpdYkS8SL suBFRohpmaHWx3FAxwWHZso PO7BYWacNNxS1AaLAAzSS8q isj9DYG0RQzcBBPyJaR2CZR wdVUoHJLasKgwLFjve935TN X1TvKiESJjbyMjkJtdlU5bD aNuTKLOXqB4EEnwijWaHMXo z3BgLXJoq1j0hFDsnIMaf3R lgEK1DBQnn703on0hWRCtds ZrwIsyHON4SUjjRRjvMTdam ITelXYgxPCgWLXxPN7yX6P5 iDMuQrVBwFi4nTTiMTRwSUF juPZka1SlwHtjUPRcijZuJ6 u6vZOfSB0mnhzywjU6VIFoF SK4ST4wfuCuOGtyQIHiEHSa bHMpLCBhbmQgdGhlIHZlcnk kLr0mHBobvBKgViM2ofE5kZ fuAH6cnqqkgm4hPILqgg2= SPECIAL STUDIES (test w5llqVRyDYHiw2zpHDJaeMG code = 3376) uZzEwMzNcZnRuYmpcdWMxIH kocbLoSMaky8XbX4FbKoHjK FxhbnNpXGRlZmxhbmcxMDMz SVU9ekTdTIFpOVlsKKPwDWp tEl0xtGVzaZriEtDyWIPrm0 cknuCSotbymNy3b9rcEHOpB jG5bAUdQJcyK9cgvzLzmJOo O4VtbBRgwBz5u8asZrXnLvF 6wEVjRLkrN3kzoxJigHUzUN FxVLm3gJ61JJZcyV7ikQDbG PwyvxKjHwI0UAknECLeHzZ3 TVWtnBPwPLQcR5nkKMWkSGf sKLVlTSjpyRFoHVE4lYijf4 L8bVHxnMUvaJlrLjJfYoJpS hCMn5QxDEm8fOauM1PuCVFw FcW2nCPgBVTnOQosUNUzJZQ kgmA2cNqymtFhm12yqGZeME YwXGZzMjBcbGkwXHJpMCBDb 6DguQuyQEN6jLz5dCdjFyau YSP4Tng8VL2idb54ipd1uLf aFIUrkivtKoR9EDjgIBHcxx jnZDu0MRuhUHHydUU3XFZqa DDaS6RqKAEePI5cwkn8XCB0 EXwbIKIsVdV5KYVlgNYtCKY ahCbcQUufd179ZAE3AiRhYS 7fW2Ycw8N8sH3adDLoBBPdu DQzVlVdDEFkws4icTFlXFcb v7JhNTC2bqQ0rJMvfBTzXXN qBI25Arkes2JyGnywp8OjL5 0riLI9ONyjl9cgYD8oIrQ3v dYmMTbuo5dueT8oZfP8QUcm XI0cUL3yAZYysM0qomduNCF nYnJkcmhlYWRccGdicmRyZm 3kwPxiNEQ9MSorW3wwhT3cH pD3TPghO9uqmC6rQBf8MXjn fYS4TSXgtX7tUP2twtvzi8v kALjvRErwDNPhbzT8oyX9GH JzxESoK0NyrT2mHTBiUR8kq vrtr9uiNCB5XPhzDULmWHE8 XxIvOWZsz6Lertp1GyDau6L gdBUjEUeiF67yc067SORdcf FuC9wunVMdbzrgtWRimrfxI YwcqsH9GPTpCZXiWRlkFAPm XGZzMjJcbGFuZzEwMzNcaGl jaFxmMVxkYmNoXGYxXGxvY2 ioXaKqB4JdUHZrVdKcKPetT ZspwSKtnELyiZJ7sP3eBF1e QNAovNDlM9AsHWZsocUngSE jNFV9jPJetDVyYT2aWRinfR Inc0nvp7UqV0ekwHlzuEI4N A3kGUKtDZAlZYlns0IurR6b LlxwbGFpblxmMVxmczIyXGx cobruFXRoIWwjR3skAzLpTK EyoMlyTAoro5RiTWNcLBAyX vsancHtLWp0fpYsULLyuudh FBRmiLzhrO8hBzLjMlSsRwm vEW3tFDZgX6eaxLVdQTYaFO YxE1ibWqFpiR8pbEwsIKdyH wYwGkWpPeOYt988pg6yLAKy ySZslsPQaBZwdE0rKNmjGMv dQLxikVRrRGmoa3bqBPTpr0 j8bCErCOStcoGrc6dnBXyjp gBaKBGxxRFbtUKrYIUgc00x JVqcjOnqiAypNXZiu2VthZx un6UkGgCoPUxij7NbP44jtZ JvbCBzbGlkZXMgcnVuIGFsb 38ks3fqJJMjEsL1mFAdoIP4 mEWkcBUhk3MhsMioWDGwt7o gEGQzjb2bpziduSZbq9RnaL 5pbmcuIEludGVybmFsIHBvc 0w0dSPbXKEnNCMqDPmsaFk0 CRDwi567qz8mrnS0mMCqPPM 2YWlsYWJsZSBhcmUgZXZhbH VhdGVkXHBsYWluXGYxXGZzM jJcbGFuZzEwMzNcaGljaFxm GDqgYxIzTSIsPHwvP3tkWlE gD8GqQBIdVsTgsYRlO9jwgP FyXHBsYWluXGYxXGZzMjJcb GFuZzEwMzNcaGljaFxmMVxk AvEeFLWlOSgpG3wyGcBdI7K yXGZzMjIgIFxwbGFpblxmMV xmczIyXGxhbmcxMDMzXGhpY 9qgEqQaJIVadSpsXKfis7Tu WMMpXQLhTocbynRuRQe7yxK oXHBhclxwbGFpblxmMVxmcz JiWWfzgmgvYSDtGBiiO3gvF rEuRVUvnRbiNUexv0JtWLMn OHSwRxdkqbQyYPywaPGbh9g vg0AbX5xgdUjmcCR5YYQoV5 qyfIDojOU6UMR6cX0yEAulo hRpIWObl9ScZGJzVVGvBlS4 oE5oDCV9MuAQfEfdPIDfRYj uXGYxXGZzMjJcbGFuZzEwMz NcaGljaFxmMVxkYmNoXGYxX EvdP0uySmEkW2LgYHNrEbZd lEwrVSewGRi6RjbwsNZtawh mMVxmczIyXGxhbmcxMDMzXG jnY3pbXhErWIMvgHxbQQpmr 2NoXGYxXGNmMlxmczIyIHMg IWMbwCCpcKFTQW73PWKpHOY zqXoojN3dmEIWJAMkrjH8e2 U1WIujHWYjXYu2FCgkrnSwX BShiL1hAMLnVF7qTKu4ggWn TNTah2KfNQ8bOXIzzGYuGAE 9KSVdt1EhA1Jym7RkTWGeEP Yjjt6qfaNzWdRXlEQnLKPoo e79YNGdKX5iL6vhJVUuSZUi vfQvxJBon7YdRCCvpWO2yJA jFW0CQkFKu22iUJEsYPZQmp XsIXAtiInkpDI5wnA7dA1eK iBUaGUgRkRBIGhhcyBkZXRl ay7fyoVvRDIqAXMer5AxgSH gtQVkhaWrC8Djy2IsDOMuqx 77PVkkcKCzaf03JD7uT1Ztj 4HvsR7wDKcbEAIib9ZnwIFh jPQcNWEap8FgU3yozkjcAQq trBIlkE3nOIBxACy1VRRum9 ZzJTJvu0NqPqFjlyQqYDRuT BOdGLUbcP15EYB4uJpgxKwa wpBxLH6bGUGwjuWdPGWpAIL fyY8cBRzqbkIlQUGjjaL0n1 Q0MApgEFFezhCeWnlgWPV9q zFwjpK3yLLzR1nkidjyITdr PLXxk0IrtP9bmOJOhHPis1J kxTVbeTSObBKqDN1litIzJK 9xMQW6YUmjKTXAUUVpCNygP BLfHQS9JOkdMvmsSWA5xoGs URHmw8YgFJhmA9jbR97skGa teKl6yULenBxsvELpxYOdDL RuqhQ9v1L5BVHev3PsuiheC HBsYWluXGYyXGZzMjJcbGFu ZzEwMzNcaGljaFxmMlxkYmN wTNOdZPfiO5ppJzNbTwQnYm omILL5rU== Gross assessment was [facility] performed at ([facility], code = 2777) Department of Pathology, [address] [place] [id number], Technical component [facility] was performed at ([facility], code = 2778) Department of Pathology, [address] [place] [phone], Professional component [facility] was performed at ([facility], code = 2779) Department of Pathology, [address] [place] [id number], [id number] 07:24:40 Test Item Value Reference Range Interpretation Comments Case Report (test code Surgical Pathology = 104) Report Case: [id number] Authorizing Provider: Stuart Wylie MD Collected: 09/09/2022 05:13 PM Ordering Location: [facility] Received: 09/10/2022 11:48 AM SERVICES Pathologist: Ada Locke MD Specimen: Mass, Left renal mass DIAGNOSIS (test code = x0oejXObFCViq6vaVIWeoFY 3220) uZzEwMzNcZnRuYmpcdWMxIH tccnRmMVxlcGljOTYwMlxhb sRjJHAhtIHxJ0PjputbEOpw IZ2iIK6ojKycyISwbQWhAHJ pBjZiz2duk355xDHxi3xeIG DTkdlejQe1yXkwW71wc5T5Q fgzC28mlXXiPVW5HDFwCZOw tGSaHHAgGFI5OIKzyEOyI2v cVHKkHO3tonxqBQdbLBrmVG DtkOU5GUGpnXYlP6BcNPBtN YmyYPZhgsm8VfYmWs9fxHZo eTcyMFxwYXJkXHBsYWluXGZ aBkUtY5aPUaPNTJLZJCNMLJ XWVERWZGEQLU2PICiWKOLAM 22QRpdgCVEucGTiQF6bO5yK UVCpS7XXGIOBGP9TAOPVROb TZZCAExNRMr8SKRbrT0fCG7 wQEVVuR5VFPZSzT2lvKDEsn JDvIR6xGRZIS4GaZ9spFRmh WJ22DRCDPWfAApMXWFSLOVM QBh6KYgHZLN5CGrTTI72gIG Cveny0MPXhNRXRXJ6VZtPJS B3ZSIJAOKRQGTaZEK2DKZrb IAUahLIpOV6yTm0wS7AWO60 NQVRPSUQgRkVBVFVSRVMgSU RFTlRJRklFRFxwYXJcdGFiI P2xIj6xFucBUhQIYVLiIbUJ VFVSRVMgSURFTlRJRklFRFx pGXNttBUdHH9cKh4yVDsFSW sXYlUCN2LVHEFcUT2QJHKPF 04gSURFTlRJRklFRFxwYXJc bFNnQE9xLTDIX4PeWWRYTVT oCCnPIERGTmKYT0rKVRFZPF AIDnnVK7MGAW5YUubFLubfP PItzAAcFL5uX4HRAlKwFw6E EZ7PG6WNRKCVMEHlF7zVCwS GLYtXMCzvGqXAZFVRZ1xGXu 9RWWPqJ1bPDMRIUJsQKDRye v83GPU4NvUpq3T7MKU0UYOr HJLht7pkZOGshHVwTtOyNcN cZnRuYmpcdWMxXGRlZmYwe1 rkl244jJQpn2kjOKWfGaD8x SPlQMEuqEMqG026JUXkTEpd a2vdx6NoOMDxaGJbv8P9FAF HtekkrYv4vKjzP10ik2U1Wz moP4uaNOEzLFXqJ9SkOD5nW QJwXey6QBD0WCT1FCGzZEEc F4MlTQ8oFRUnfTHjFTe0c0c pbSbiJPJuQRM2g5vzVMushy UiAD0dzt1ccCn8j5rdoeZaV KHtMJDwwGJKJXDgV4KsqRzd Mf7mnZl9tNnyOeksPSN6Rre 5XA7xxl21tfo0bWoyXQSfxa wwObY9KLkvANDofgctEWw1O XwcIJHjfER0USIruSSbX5Yd CJFbLL4ofmk7YTQ5IHfzLAA fZyB7KBKfhJCdBENhjHtzMC mch878INO7ImRyTV4tH1Zwf 2M0yT2ewYEvDJDdvIWcUyFw ZHWlmk1jlHAaSSoev9NwFEL 6czJ8zWQemIViEOSfSbJ9HY fdQF9dvk04XJFjHAF5kz4ne FXeuLzjrhXezALxXFpaZ7Cu IBAou761PJRpC2ZdETHmh9E 3qlXcTwNtMOEroDE2xzL7IG VpIR2uxxrpg4efVMgsQCyfB XXjmlU7tzQ3PUIsgSThR9Wj vR2lNJQmZB7mwcnzw0gfHLN 3QHnvRPNkQWI1ZnMgYOZcq1 Hyxjr0FmEko6KhlXKeRZojN 47fc782UTCzuwQoG5bxrDTr popmoUSjrblpYNzawiW0TTP cZMpqhtirJBAvFPtuE4thDt XhDAJfkQgpHQazu3HgWNKjU HBqWiJjdISlJENiKtn2UQVf dBPhSPGpOmCkB0synqfpTfM CTVZjh7kjP9hrbWINgGLkQ9 QgUGhvbmUgTGluZTogNzEzL Ko9ZK75EhZwSVVcno91 SYNOPTIC REPORT (test KIDNEY: code = 5765) NephrectomyKIDNEY: NEPHRECTOMY, PARTIAL OR RADICAL - All [employer] Edition - Protocol posted: 02/11/2021 SPECIMEN Procedure: [...] Rare sclerotic glomeruli CPT Code(s) (test code l3txiCGmHHEefXD3AtArMYA = 3357) ow1psj5MviSNgoCVaNBcroQ CmvfTcgh34wGI9aF44DM3bX JDiSwQ3FJLvibW8Ete2IBHt QOFiqYHmV476s4otg6xtniR rtXC4gEzzZSOfnhvtPlT3WB wxBDWvrteeMNe6VAglHWGzl UT8OCIqeLRbD6DdCOCvYP3j cbq4NAK2DIqqPXRlVqP3HGO pjKLhYKStvCqyAFckk929MO O2HdJsVKHdhrIkmAwknM5eY mTgHIS8ABFsN8ygOSOsYNop NDJccGFyfQ== CLINICAL HISTORY (test a9ugnQYqOYEjzSA7ZjNrUWO code = 3356) dp9zhg2UxhQYjqHSoZRvvrZ KcxvDjfp90rUO6aH38OQ9xF QAtDhF8SXTtrqT7Hsx9AJZy QKDoqUJdP671v4eyz5eikaY jjDY2fLfiIMObdybwMmX0KP xqRKPbiplsQUp6DJqnDHCce OY5UAUwfKRoA7TuKGGzTW5t uxk2WFT4PNrzSPPrEfO6NGT txCOzBOEipConFZwka094KI B0VzXhRTNhfsAwnGpptG7uL lMiEMOOXO5nvOWcLUIaRKUj cn0= SPECIMEN SOURCE (test f6hhkURzRVIfoXI1EwPqFOY code = 3377) pp8gdv5WbkEQsiRReVLuonT GusmOpuh79mUQ3wH44CC0fB IXyCcP0IYWvgmQ3Rkb3HXFe KHXsbIJgJ532v4nzb7bckcI bsNX3wZtjMOTmvfyuRaY9QG zrCULpxnzgSCo1AEbkHKFig BK2AFWlwLGgJ0GjJYAyKD1f hqd2PZG1OMpfUCCtCmL7JKC iuOZeLEUgjSlwRAbnx257QO B2YwLoGERhnsZjdKclcQ9cQ hUfWUCPPnXwX6dhgxC6RAPl ZUE6NNDwRKTmEUJltw8= GROSS DESCRIPTION d7pgrOGrAFNjjZC6AjPlLWZ (test code = zg0aan2ZfaMQatKOeZDyrjS [id number]) HtknDbam56aSK3uQ56SC1rN JCqRsV6KLHsdqS0Hnt3SEZb PWPtjZFvR230w1gok1cxpfL bjWN8PLMeEYVzH0OhFX5iNO MvhSJrN69boNArFZI8PFFfI TXjoAWoRWIjKAN9IAFiyZZg G2igLDHkCO9ijutwHPcsRIt iIWLpyKB2GGIvzIRbW2BcLM WpYLngXDPmgsw3BfWtFb0um FIkbHdoWLehQEGpa7snPXYo lEFhWFT2IJbwcCUaATOwSLJ aKQw9JDJoGUnkfZViSC8efO cfMbypuJjhh6DcsPXtZTuxC YKfGXRmQKtwZMPpS9JZTNPt GclcLoL7LbEgIVr1ONqpW6T NDNKpCXZpYvJ9FhdiTyN9GP q7CPYWNx1lLwS2RJMdZYq6M HQ5QBVpQWxyvCOySRanAoea NKqgBROyaFLeEErswnP3RQE fFRhrWRHgGhZuIV4aIUEubt 2ueSEkBCJpKuJwLcZhQDg9O CRkXiKid3uzGXtaUbQrYKQz q7i8jVF6fSHxcLH0wTMiuBj fWJ9lnLLrFE2WSuDlzvPzU9 YrOKPhiBeuCtVtGEh9B6kxW pVhaTTchOMgMZ0drLRoBZMc NTByQPa1DLMvAJEaGvc1JWa rWFXqELBxDRO2FEQdF0EgSG buMHUrAKEvEO01OAfzSm34Q MdnLn61XGcoLwKqP19nvTSp QY3sEKMgFCKablYrY2PdtVI rhJvhlMDrJVZqqbTphO5mhY F7sZMpUKNxc7akrbuzpCOyh dEcHT8joL76AF0cYUZuekhe UZGhqesfAYFlqWXwLN1vMRp uVY1rJPozEw31BBbdFAUlaQ AhPYYdA7Noa81qydtvlsT0D ONaphZeYKnanHrlB2xzU6Cs w0LhsMAtAEU1SM7dfAwzxyE xz3ZjrQr0WWgfoV4usqxzD8 gkJE9ce5Tjs5grS8kryNHbO AOwqe33bI2clSWenTR4hTFp q7EkVEAnnDkpINHiNUMhTJI kxGKvXClno4HnJ2MsTORbRC L2NSWfHET4WOYgCDbxYPQcA HJzjHJhJRG0bDSyuaotaWzp UTGahlGbI9t0dADiYF3swid wmuUnrxDbT56jTWGqd4l3yE qeAUPiKRYniICaZuK8hXPjL 8Jgp1FzXUuvbZMnvvBrswWk rs4eo6q1XFSgwbUvvrYiZNZ vIHRoZSBraWRuZXkuICBUaG JlFKVpmpJomW2jrEIzNEMwM U3souJcpI9yvsGjaLXnQACt TM0clCQwZBWiguXxaI7gZcP lKVkuEW8gu0SqsNKjx0ZooX o1tWHxEYDemSwkUGm1QWuuC KTui5RwwGZcRBJzBMLhYc1y qLicOPfbRKCfHF7zGMFxITT 9QMwsFXIbXjy9TDraGSUmQM 1ywVepYWgdfBMhG5okLOAag lQTmWBlekSCHTAioXyuT1Ji cmluZXBocmljIGZhdCBtYXJ ogY9ncSAkWBLmkeDvXQGeGM ZfDChbYTOZKRQwgTNwh4yjg Fzjm0UdyUNyBG81PVEfeQYh WVI1YK9pwOexQJZ6 MICROSCOPIC x6uywHXyEPSjbSJ0KtOnBVI DESCRIPTION (test code hs3bju0QnaZOkjUBeCIfkaR = 3371) PhukUfqo64eUC1aW99DG5aS RAaOaK3WVEnrjU5Ooo4PCLw WHIfwLNqL899h2wla5jzzqI nwXZ0jGllBUSsmhloIiK2WQ xhDIDtjqdsTLa8OBkaTKRrc LF5XDEytWDiF6TwKSBvKD5f qba3GVQ1LWovDIFmDdG2ASV guXDkZIEjuIloEHgst345FC F1BzVoHCPyotTuePkygH8iR nUsVNKKFqY1ZDofvfHmDOIm w9HtZSCji8i7mGKmqWNgg8R ngBL8VIYjr762xc8lCKBbax WxxIorGXD2CMlxEVceUBbxw AMrmOVwjPTbMBOdSY5sX8Q2 gXBzViNBxSx1wDLlKXEdHGZ hnXYdc2HlqEvtXKYpyvAhZ3 l6bBFmOC2ypizolmW2JQSxW OO4YU8lqtEvQLmbBMMuNWSe bHMpLCBhbmQgdGhlIHZlcnk dIb7gGFeitLLnWxV6tuQ4kR ceOC5purpmgu9fFASofh1= SPECIAL STUDIES (test u6pesPMgTWKdh6omNZHcfHE code = 3376) uZzEwMzNcZnRuYmpcdWMxIH exieHrMIdii0ZoF0UkSgVeZ FxhbnNpXGRlZmxhbmcxMDMz VZB2zoJqKKCoDNylQMJvFYx xMy3hrGMexJlpAoRaKYBrm7 uxkcUDrgngjAb4g6njPCQrM sV7dGVgRPezN5oaypRiiMDi P4NtkRYaySz9e9wnRqYwGaN 8rSElLCewK5hpuzMdwWIqUB JuWVi8rC66XWCvkL3zkZVqT LolvaObMqC0AUrjCFVwHpZ7 QJCqcJXgHLXuF3ouUQJkSUp pEIQxRWlyoKFsRHX5mMfxm1 S4tDDhvNXrpKaeGoZkJoRlR uEJp8FdHGv2yDbzW5YzUZPq UlO3sOTzSPDoSJyrGIKaFPK npzS4cJdwpxNbd11odDIcLL YwXGZzMjBcbGkwXHJpMCBDb 5CbqOcbDVJ7cYd9wJqdSmjv MSH1Kzf3XD9oqn18rcl7jFm xLCSnxruvVcX4ZRutGWExqj roTXy4CYulMEIknZF2TMCrm QAgP4JgZDLuNU0tezr5UKE2 NQyjGRQaUvY0KJFucOOvHII ddTyqEXgob445PLE3UhUtRP 2vA2Naw3G8wV6atSKwEAZiw OYzPuBkOBGcoe3erHKcEZjc m2BrRUI5oaP7gCOsxLZjNCX zQF89Pskzi2JsRkysa2FtS3 7rsEQ6QRdet6eaIS2lNdY4s kMlGHhuh2padS2aYfA7DAhz GU4zTV9cZBTleJ3lejlxUTY nYnJkcmhlYWRccGdicmRyZm 7euPfcTZJ1ZLsmO4ellU3kF tK5RSszG5ewdX2qFOe9BRqr pOX5XCHjaW9bZM3oraxfk4e kMYzkCBhcJWNxxhU0mxE8KD PugRAqM2AxdH8aCSZhPH0wk ypwr2ysDVC4FLjqCFHbZSN8 IuXjGKPnn1Gfmei8JzQrx1J dlOTiXAjdY02ez173ETDqrr JdA1vfpRAerwavoVQviysbZ HlbpeW1SGRaJHSoHWdnERQr XGZzMjJcbGFuZzEwMzNcaGl jaFxmMVxkYmNoXGYxXGxvY2 soQaCmV5VpRXSfTrQzLMafN CcfjTFyeTMokSY4kL7pZQ4e PCFewBQkL7DfNTMnipSjmSU dGXN5zIHwwYMwLJ2lORxgzK Dab1gnd7PjX2gjdTkqmCH7I R0nZAHdCYVuPXzlk2VpyD0i LlxwbGFpblxmMVxmczIyXGx zrbblLSQnRGnpU6nqWjOsAX UpkEyjXZytr5PeJMVeBJEaX eryyxRqGYm5ekFaMGRmrxis AGVdfSldfS7dBhVpOxVaAbd sUW0xSPXuA6bpaOWuUAYwKP KpX6sgNzOfkK8kwMvmXMzuU rSjQaVkTbIWq335rb2bRLHs cDBppiKXuTSpxO9fVDxzIBv mHTuuuPApBHnjm8wbDSBcd1 y0wDKwEQXpxcRgf7zpYHzzo tDzEQWwqIDtuAYnESSfi33t QEimzJhdzGigJGIvd3TkbRr ym2UfHrSaZRtlj7WgP17buF JvbCBzbGlkZXMgcnVuIGFsb 07dl2azOXVoJhP7eOTdqPR8 iIXytVQnq5BmjZhqUHCkj8b yDNWipt6uquokeKIdx6ZtmY 5pbmcuIEludGVybmFsIHBvc 1g2kJTsVJYlKKDmQBajyRs9 ZQAob705xc9znbF3cQPwSGO 2YWlsYWJsZSBhcmUgZXZhbH VhdGVkXHBsYWluXGYxXGZzM jJcbGFuZzEwMzNcaGljaFxm XUaqCkFqWQRhYYbjF4avMvT hG3VdUFVfCxKheOWaT6qdsL FyXHBsYWluXGYxXGZzMjJcb GFuZzEwMzNcaGljaFxmMVxk KkCoVRAhOWdaA9doDyKdP7S yXGZzMjIgIFxwbGFpblxmMV xmczIyXGxhbmcxMDMzXGhpY 8kzXiFeUCXulUrrVWfrl8Rp GEKkJRUiMctqloTbWXo8liD oXHBhclxwbGFpblxmMVxmcz DwJKdkkyrxHQTqNMjlD3gxM zMbUDIdnSjmYNkqi4ViMEFr PAYgUlixxlBgDAxzlPZhl8k qh0JeW9wwxObikXE1JHRrB3 oliMOghWG7PUR2rD0iJIzso eHwFQOsq5IaLCSyXTMiMmO6 lQ6eLVO5IrETtXuuCISdRPk uXGYxXGZzMjJcbGFuZzEwMz NcaGljaFxmMVxkYmNoXGYxX CmkM6pxEfMzG7McUMKbLcZp sQjxGJoyXOm5RytmyZImwjk mMVxmczIyXGxhbmcxMDMzXG pnN3mcOdWkZCXpgYfpMJwyn 2NoXGYxXGNmMlxmczIyIHMg INAhwGTifPVPSU85RVPzNDM vtStzyW6fsOPBWOVkcnL3x8 A4QRipXTZxHSy1YDfpkfXbZ TUnrW5yOREeNL5bAFm3brDy ZCOpd0LjML2kYXWsuHEgPZI 9DLDyv4KdY6Kcc0IhMOPxPS Kftc0hnsRgVlBScMFgRMVho d67LFXyPU9bT6nfLTHtGQLr bnLdmRSgj0ZlYOQjaFS7eKR lJW9ERvKTu71eHSZsORSKps PcYVDxiBmrlHA0doH6uH9sX iBUaGUgRkRBIGhhcyBkZXRl hl0kjpIvWQYsXWPjj1CrvJX xgPFbljRoM5Qqo4JyUXDdho 12JZnwwCTkxs08UV2hO6Ywh 0YzsK1wDDxpTGUum5RlgHPa wUKgVDLul1UvN9xlxxflLUv jkCYkwH4eKEWqYGe3KMEin5 LyFZHbj2MxZeKdbrVvUDSyN CYpPDAfyO37ZXA1qOdycZok mlJeUC6zTOTzwbPmTXWaMAE cpA9oHZprrwKzBAEgcgS6k9 T6HRjjDGMukhUyWvnrTVQ2w pAqevZ8oDIsY3pjkkxvZNwi NTEyw4BtqI7ysGBIzEWor2C sqWIfiXOUnKKuQA1gqmLoYI 3gUDN5SChbXOABABJkETfuB BXqQCF2MEytFrklIQZ8btHe WAUvv4IqGCmtX6nbR86oyHk wqKd3sIEtyUcfoOBhxRKlYW YngbB5o6M2OIChm9GuzilxM HBsYWluXGYyXGZzMjJcbGFu ZzEwMzNcaGljaFxmMlxkYmN vLEIlSVzrE2euCpWwYjBrAv pnEPP9lO== Gross assessment was [facility] performed at ([facility], code = 2777) Department of Pathology, [address] [place] [address], Technical component [facility] was performed at ([facility], code = 2778) Department of Pathology, [address] [place] [id number], Professional component [facility] was performed at ([facility], code = 2779) Department of Pathology, [address] [place], [place] [address], [id number] 07:24:40 Test Item Value Reference Range Interpretation Comments Case Report (test code Surgical Pathology = 104) Report Case: [id number] Authorizing Provider: Stuart Wylie MD Collected: 09/09/2022 05:13 PM Ordering Location: [facility] Received: 09/10/2022 11:48 AM SERVICES Pathologist: Ada Locke MD Specimen: Mass, Left renal mass DIAGNOSIS (test code = r1lrwABfMXIiv7nrBAZlmMS 3220) uZzEwMzNcZnRuYmpcdWMxIH tccnRmMVxlcGljOTYwMlxhb uUaFGJstPBbP9YbuegeVQhe ZK4fRF6duNvfqVAqcONiGGP aBrCmd2rrj126hBUpc4rkHA JMnqtuzQi3aPaqN98bs5Y9L wvbF05uzDYzUIQ7TRMwUDSm lDZcAIWtHPJ6QXRirTYaI0d fTKKyUD9qtmhjKUtfHVzzGF JwiZF0ETGdyPHgK5KmKOKmQ MxdOUJnwwn5CiRcJh9tmQNj eTcyMFxwYXJkXHBsYWluXGZ eHlBeM1tWPsJMQIOMVLBGGX PBWIFQPLMZCL2UPBmKVOMXT 19GRuefJYAycKMiCI2dI2mO FONzJ8DRKQBZVE8OTUQMVNr OCMEDCfARYw0LONxlR8bZY9 iJSZIeB8XQOILoQ0cnZHOwg NVxME6nOZXFU4TfA9ihCPfn LN38GUGHHIgLHkWDZFMHEMD IHp1MZuKMFZ0CSvQWX32hXE Meyis1YMQtKMBNOK9PCsBHA K6VCTFUBTWLGXeBNL5JYXlk ORQccDIgQR8nQf0oL9RES70 NQVRPSUQgRkVBVFVSRVMgSU RFTlRJRklFRFxwYXJcdGFiI S8vTb8pIpkSQlHXBGCdOqXD VFVSRVMgSURFTlRJRklFRFx jKZMhmTCoYJ7hWa2pVZoXMD tZHdIAR3HNUBTdQB9YHGFGW 04gSURFTlRJRklFRFxwYXJc zKSxSJ7yENPJL9UvHTBJUOO gJBiKEVCVRmFSP8vJVHRPGE OURlbPH9NFGJ5ZGzhRQeefF KUrwNCeIE9kL4JVTaTbIl1F WA3AP6QGDZUKVHNwQ4mGPmY LDUmQVDdiTeWJWTVWV5wODi 5HHRCuN4pFUYUBAHhDWBHmf e29VCH5FrWax8D5HFX7UEUd AEVwt5rxWTCqvBEcTkIuGoF cZnRuYmpcdWMxXGRlZmYwe1 zrs919wRGue0xxLJIfEfH2i QZuFERgpPWfQ771HOGnNCqw z7tnr1SnUBHlcZMxm1X1NUO KvvgvhVz2sItdC66do2S0Jj jiK0oyDWWcDPZmC5NaWD3rB AKyRil3MXE5NYY8PZSkNZEu R4OcAO0aYXGccBGqUVq3n0g rlGygYFRhIRR9j3uwOCoveg UoQI6ugi1auEr0j3fnuxRgW AHyPRWweMDEJGLrW2FupCfh Kx1soYm7dRvgVdalWIT9Rzp 7MF7ykr05phz2uGulDCFogh awYfO8BCxnOGQfwzadKOr7U PutRBLhyID0XPEskKZuO4Le ZTBxJV6dhlg1OIK2KHfnFCY tSyK6PAMpzDJySARuiAmrOX yjd171PVC9HeRlQE1vC6Nhh 8B8aQ6mjLKvSHHokDRnAnOt ZNXqhd0rjBMfTDhxj4UmAKS 4ysJ2dKYyuFNgGALxSbN8LD reJR2pwe50FSDaPSF9js0ce JCguHvoqlNaeAQaXPndQ8Yx WCLqo391MOQkW5JhASOxx5L 7vuEgHvYaPFRyrCM5drQ8EK JqHJ2tezizp4zcBEmpVEcpU GOirnM4nxY3UGBhsYRsJ6Xn pD7tSIHdZT8kcyfuq9rpFMT 4UFpgXVZnOHD9GuEvRXDtf2 Qrozr6HhCfe2BpxSPfAUqxT 88nb017ZFZlslUwO4wbwXQi inianFHgziskYWhptbW7AVH gWAdxutyfVJVqDGcnH7iqKm LmGMWlaYtsKOjyw2IqHQYtD VEzVrKuxQReUTNzSch1NJJw bJMlFICvOhSkZ6ljsnsnXcF NKAFyj7ifA2yiaQWLoDDdM1 QgUGhvbmUgTGluZTogNzEzL It8QJ27OsCiENBqeb77 SYNOPTIC REPORT (test KIDNEY: code = 5765) NephrectomyKIDNEY: NEPHRECTOMY, PARTIAL OR RADICAL - All [employer] Edition - Protocol posted: 02/11/2021 SPECIMEN Procedure: [...] Rare sclerotic glomeruli CPT Code(s) (test code w2qiiVLgAGQriZI1QsCfLJX = 3357) da3noy0GkqODdcAXwRTptpY LmavXtan30tVW6jE53QU9hG HYjAlA5NXOtdeU6Vdw6ELJn EMCjaJXcZ756c7tmj5pnfsA qpUB8tGrtLFKkegvrIyU8BE pqDSZpytebGTg4FEnvOBMzw OZ7GVQwoPKfR0JbLYDmKJ6i mwn2BVT5JOfkRNJwCyF7KSR wwVCoEUPsjChgSAdvh057OS A6GwNqIBOewgNfiOxkbK8kJ kJfTDE3GPGfR1anMOHuJRxa NDJccGFyfQ== CLINICAL HISTORY (test d9zypKSoQIUajFW4HrKpQDT code = 3356) pk7upd9ZnpMKzdQDvVOdaaA DnsnQfli35cUN5kD93IC8yZ VNbQcO9GZBjvjZ0Ylz9XBMc ZFKqcHEmE866o4ltm6zwyaV xbRL2gJzjJBZlkbynZfW0OS aaDIVhbmgfLDh8WGhoYGAtv OJ5CIBpbUYhQ6YoDFFzCT7m acx4QAL3ULjbXCIfOiG0WVG fhCAkHEMalMkgIAzzv511DZ A9IgLhGDXmjyNuvGuvlY2pA vCsUQJRXE3qfTStRVZjOZKy cn0= SPECIMEN SOURCE (test v6pwnVKrJFPetMR2ZhAeVIU code = 3377) tp2zti0PvsIIfyJJhLUbbbC RyhqWkld73jZG2lW06QG4uG NBiKuL3YFOvmcG6Onv0GGTp QYOjvGZgX876n5zzx4gwsxX auQV6bYhkMATqcrkzGtD8OC cqBJNimkutTHu0LAzfFVGbs HO2JHYmdDUgE8MuFODvJI9y vvj3SRB3GZsdANOoRdW1KGO tnWUlRQHkoQtnCAiqc843HM Q7WqIrMNCpalGteUvyjN0aB gHrLDYWZqWkZ0cdgyQ6PHHt SBE8VDCrRIFdHCAexr4= GROSS DESCRIPTION l0xqoHWyQRWarGY5DdZuSVR (test code = vh7qlo2SycZTvoBUxYNuddQ 3700960863) RyuwXfnc43sNF5aJ55SB6pC ENgQtF2RKBgarU8Fsw2LQOt GUVhdAAiE976w9ego2hydjU zhKN5OOSzRADxA8QyCV4fOO GqyHKkU30gwTPgFFH9PPSlR QBcgYJrWVMnCFL9MKZajYFa V9rxBLTcMO8wasgaMTtbPYf eKWOtxSU5YCCaxDPxE4OdIZ XvHEvtFFVhswm0MbWcXg4cj YFopUocMMduGVFuk1isMATe oLVqQGW9PEtifXTyLOHgZUW kPSz2BXOfFWefnYEwYO5ceI avCpqzcCmtn0DqxYVyDRykU XBuGLPsUXusIZGlK3GFTDTk MasyUjJ7VsVaPSy5ARepP0W BQVYwTLQpFrP5GxabQjY7NN p9YBOIEe5xSpJ8QQCvXMn8S OJ6QPAeZEjinHEkXOadJomy TXikYPJufXMxELyruuM6FKM wLCtbKGJcGqBuMK0wDNFbep 9qhDUnKTFgWtOtYfXgXAj6M MFgAxVth1gqIOarXeIpYBFl l1e9xUZ3gMEukTI2pVHwxFr rIJ4edUQmLV7SGaRcvdDcW1 NxMJPerYudCoXnFEg6T0woP pDzrTSpfYPkRF1zgIXsPQZk BJWcCWf2ROFvZVGsVqj4JOz eSPIfJXAoBPD4ZLLcX0RtLS csJFCiYPUfSJ76HGaxOt72R LyjJu41JIzySkEdG02xoSIf WW6kLYCwRMNxhwUgT2KsjWX qwVsdwTHtTRDhzoIxjG9whU D1qJScHNWho1sxnwdguLEtm yLvXQ0fjD47PJ4nNMQimnfl XYAmifakRGBsaZXdLR7uJPi lQF7kJEciWn89AKowSYSmlD ImEXGwS2Tkw53ybrbcqmZ8W SOcsmJcNJnvkYjkV2kyI1Av j6AmsYDkVHR2TX5tsCqnvzA qq1HnpVp4GUsxjK0mzaeoU3 khIX9fj4Zau8hlV7kvaZRpQ FEnad38bO5xtURlcTK3kQWk y1YeBVEwmGxjXJHzSZCoBRI ayXSiIPveg5ClE7PzDMNcWS G2NQUgLAB2BMVpRKwdCRPvD UMuiIBsJAW6iEPhbjlduKnf PZPkrxDyX2d2yJIgUY2fsmb wycEqkcPzC08zFRTpt3h6uY jnXJWvBITweWCsUiQ9eCBgS 6Pob9OeNUdhlRWdkhOhfgHm uv2nn9y8RXEfjiAygiQgSSP vIHRoZSBraWRuZXkuICBUaG IyTVQmzsPzwW9qbRKgTWPrS B3creIchG6dhrUjrMPgEJZw HB8mwNVbHGHlueBqmK9hKmJ zOSdoYP1yk2KwfWRlp6QvgQ l0pAPnPPByqEnmWJv6VVrqC EAts2HvaZSxVSEjPBFyWv2r qEbiWQseYHUuKL4tPPLcVKY 6NXlnBRJcSkv4GOsqWTIlZW 0vdPogKNquwOIhS6wtNFApo iLWuTLowbNDKKXmjQdtZ3Zf cmluZXBocmljIGZhdCBtYXJ jyN7ayNUhOYMgmtEhBEByTC KhHEctTHDWLQNsaADcx8qyj Pvwv0GprSOrQE38JKEtcLHt MMM8LM2xjWotZAG1 MICROSCOPIC r4mgwJScKUOjrHJ4BiLeUUU DESCRIPTION (test code nx0vhv1FpjISnuMNwPRuzbK = 3371) VemsDaei32hFC1tW81CF5aB DWeRtH2FOCxmqI7App3PVIa OELrcMIvD284m6pzd8mxdfM zxUX1aOibIYKjovhdVaV3ZJ yvLRUeozxdBLd3WNdzHOGds RD9TVUcvXHeV7ErHGHoSR4e srf5UBK7QBmyNWMoIlF9SGF vySSvMEUreCfgEWfht965BI V1PhZlRPOymyEeaUwyuX4sB iLdXLWGCjU5JTzdjaSiLDNl y9FnYXSgz2l5dZNkuCBxj2S xtND9DMUqm766hk2pAPArqr EmbElkCOA3YZscGIfwDVhdf GBfnOLigDAgQKRwGC7lX2O1 gSKdTwLYsGm5mPDyFDXwVXW olBErw9FwgSumLVBqjiIuG2 q8wUYkCO0sewlmlgX5FPQkS PR0TT0tjwPdGBxrZJRcIYEo bHMpLCBhbmQgdGhlIHZlcnk mGg6sEWlnrNQqJlM2iaN2pK ujLF2omlijhz7dGUBxnt5= SPECIAL STUDIES (test w7vgkQRdRQZov0oaLQKivYZ code = 3376) uZzEwMzNcZnRuYmpcdWMxIH diicNaQEfck6EcZ0LvOaGgM FxhbnNpXGRlZmxhbmcxMDMz ZAV3qeBhEKSiAHktUWXvMSw zXg4arTCrkXvjSnImKKLvo5 hetuOEswuusQv4s0xjGGRsP fY6nYImEDbvC0ltyaCsjXVa Y5QiiDGqjUj8g6dzMwIyKpL 5sKFsHNmvE8vykjBulJTjOI JwHYn3gC58WRXqjG1zkSPzE ItlwcTlQyB8THwmDXQbKjR4 DDPadKZaWPBnV4zfJXApYGw rRCKeAUgljJWdHFO8wCfba0 O9hMEzqJKxbHagJaEuXnTqF eBUi1SmUIv1yEurM0FvFWHv RyO1fRNjONYjNCeoRWUsTTU sfrD4hUppicWjh07dtNKtRB YwXGZzMjBcbGkwXHJpMCBDb 5WskSdpKQT3jOu8hHnyBrds UYG8Mpz2QM4asp46skj7iMc mXTUugygeUiP3RLuxGFZfvk xvILq5KYxsGOAfnSH4NEXyo BHoH9DpTZHqSD7degg0HAG9 ZVhiNSMnSdI4YPOgeFIkEGL adLeiXIvau049NED1HiHxVV 4xP4Qlm1N6bU5slXAxBJGew NUyJcOlTIIopa0rrTWkEGfs r5MwYQP9nzT7tFAqyGSdSLD nXA33Hbazp4OnFusvd5RrZ7 5unPU2BDdtx8vfLQ1tXrH0n aUzCXufm6tngG3nBqA8NCri GT1wPY1iMWRawA8futjzGND nYnJkcmhlYWRccGdicmRyZm 1owCflGBF7VGqzN5qfmC8lZ qL8ZIiaL9dgjL9hABx5FOrp rSJ2EXHduV8cYI3bblqqh1x aDHsjAXnjEVMgcbD7gsB0KX OoqKXeW4OqsL9pFAZjZS3lz lumc8nzSMR2SDdnYVJxDRT2 RwKvUOHvi9Bwexg0DxVjt8W myLMwTLblF63hw866NNBcoc SfE5dgyLWzkwkbaUMcqvduI JftkrG3VCXoITZpVVgoGUSn XGZzMjJcbGFuZzEwMzNcaGl jaFxmMVxkYmNoXGYxXGxvY2 adIpUiH0YqYCCnPuJzQFtcV HpgnFMugECimAX0yF0dTK5n XHTozTXsQ0VoAJCwpfGsbVF wZSK3vLRsbAXoIP0sDQwqbE Eqi8btu5HlC1qqgLoaoRZ7G U0zHMLpVLTwPThlp2MijE3i LlxwbGFpblxmMVxmczIyXGx czwnoOHFuLGpsO4dlHdCoJC GegDxrTNoxt9TrFAYoAVRwA rtkzkFgECq7fjVlDWKhqqlk BKGslBpqgT5pEmLuKgLyDud yWW6bRDBhV6yjsJInCFNsVA BxF0utAnFtpX7miUkkNZuhZ uQgOyWtSwDCy394cq7yWVSx pCBadzMGpPUkvI5bKQlrLHs zCAxfuKKiQTwxr8gpNLHqi1 r9dZIuRENdhvYek8lyPSjzd tRwEMSydHRsaDQdLLMyg09e EWfqbSnylOfeIGIiw3WgpBi uo3VsWpLpRIosi7QzB28wrL JvbCBzbGlkZXMgcnVuIGFsb 42tk7nhJZDzDsP5fYGqnOL3 pNKgwHIka0JyaNgiZHHsh3j fYYVids5zvdnauDGnl9RhcV 5pbmcuIEludGVybmFsIHBvc 1w9vUTiGFBhDNMwUPzkwFt1 OSWge193jx9dbkO3gJRpGWN 2YWlsYWJsZSBhcmUgZXZhbH VhdGVkXHBsYWluXGYxXGZzM jJcbGFuZzEwMzNcaGljaFxm TRlbIqRxEHZeWDlvA5pjBeY tQ0YuYQEbQfCbbVDtA7zxbG FyXHBsYWluXGYxXGZzMjJcb GFuZzEwMzNcaGljaFxmMVxk CfUfQJPnRKjmA8xdWaIpA7T yXGZzMjIgIFxwbGFpblxmMV xmczIyXGxhbmcxMDMzXGhpY 4tvBaWyKCLeoUsjCApqi3Bt CLZtFIEnAstjvmFaYZv5brB oXHBhclxwbGFpblxmMVxmcz IvKVfeievzKUXxYKxjP2lnP qVeFLSzoJqcUQgvn8XnJKCp PORrHdmjdqEaLMwivFMtf3u fd0ZuG0rpgUlucVF2RXHnO1 nijTOglYS3PTS1uW8lXKkte sIiCAUqg1IvKYAlKPBoYsM4 dC3xZVD1NbUIeEtpSKUeWEn uXGYxXGZzMjJcbGFuZzEwMz NcaGljaFxmMVxkYmNoXGYxX XcrQ1suHjCcS8NrRVEwAkKj pNzjJWpcLWp3GfcakGStlso mMVxmczIyXGxhbmcxMDMzXG ciN0moVrSvXYMoqDdgWIkty 2NoXGYxXGNmMlxmczIyIHMg YFFocGTelCDIZI87JOJoAWV nxBmmsA6szTESOXOlwgA9y5 H6EPhqTQJiZRg0UTsertDrV MLnuP9uTTUuRN0rEAr7gxTn ALMga9AdQY5iKGHzwHYeYXD 5EXAop6HjX2Zfy8QhSAPrAE Xvgx5yocFvLeYLvGHfJQPur c79BUEdCI6bG3elGCMhOSEx nvGehNVcc0HwHNUfaWF3gOR qDL1XFvLHc18rVLSaMCGIev AgLXJyhZpcvOB7wsC6nA8zP iBUaGUgRkRBIGhhcyBkZXRl xj0misUrBNKsEQQwc1IuyXI wlPAbaxKjE3Hfn7KeLVHcwv 72QNomkPQkvh39XI9rS1Oza 5BimU0pKDfvPQWqm4YopSYg kPJeSHQon0OeI8ahkosmGBu bdXTlqC6nURSgVEu9ECQtk6 MvOGXws0UiScUnlvJcQPYqU YCdWMBebV63ZXS7nLsybTph rkSkJL8gLJYfbmJePFViBJU hfO6rKFexjiVsRZVmuyM1b0 J8HGlvMZNhjgPeUzghVOU8u gImvrL8dPEmX1tuoggrUQnb VAOlb3VziK2mbZJKtAXkm8Q ysLMtkXLCoUHcMY4vmnOgCU 7jEIS1TAvwFPXLCZPyBGvaT WJyPUL0HSskFvutYSZ8tfBj LPRho9NqWGlgM8vmS63coRj nsTd1wYRwzJdjhSUjqNVgVI LgtpH4n1N9SJLby2NkbbtvF HBsYWluXGYyXGZzMjJcbGFu ZzEwMzNcaGljaFxmMlxkYmN pEPFoFYzyC4yeQzFzTpCpKh xhFFX5wM== Gross assessment was [facility]'s performed at [facility], code = 2777) Department of Pathology, [address] [place] [address], Technical component [facility] was performed at ([facility], code = 2778) Department of Pathology, [address] [place] [address], Professional component [facility] was performed at ([facility], code = 2779) Department of Pathology, [address] [place] [address], [facility] [id number] 07:24:40Surgical Pathology Report Case: [id number] Authorizing Provider: Stuart Wylie MD Collected: 09/09/2022 05:13 PM Ordering Location: [facility] Received: 09/10/2022 11:48 AM SERVICES [...] SCLEROTIC GLOMERULI Signing Pathologist Direct Phone Line: [phone] signed by Ada Locke MD on 09/28/2022 at 7:24 AMPreliminary result electronically signed by Ada Cervantes MD on 09/25/2022 at 3:11 PMKIDNEY: NephrectomyKIDNEY: NEPHRECTOMY, PARTIAL OR RADICAL - All Zetypbyex0ds Edition - Protocol posted: 02/11/2021PECIMEN Procedure: Partial nephrectomy Specimen Laterality: Left TUMOR Tumor Focality: Unifocal Tumor Size: Greatest Dimension (Centimeters): 4.5 cm 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 [id number] massA. Kidney, left, massA. Mass.Received fresh, labeled with the patient's name, MRN and "left renal mass" is a 65 g, 4.6 x 3.5 x 2.5 cm is an intact partial nephrectomy with asignificant amount of perinephric fat (8.0 x 8.0 x 2.5)Sectioning reveals a well-circumscribed mireles-pink focally hemorrhagic mass which is approximately the same size as the kidney wedge (4.5 x 3.5 x 3.0), that is abutting the parenchymal margin and comes within 1.0 cm of the capsule, mass is grossly co nfined to the kidney. There is minimal to none uninvolved renal parenchyma. The mass is submitted entirely in cassette [id number].Ink Code: Blue: Parenchymal marginBlack [...] evaluated Immunohistochemistry technical testing was performed at [facility], Pathology Laboratory where it was developed and its performance characteristics were determined. It has not been cleared or approved by the U.S. Food and Drug Administration. The FDA has determined that such clearance or approval is not necessary. The test is used for clinical purposes. It should not be regarded as investigational or for research. This laboratory iscertified under the Clinical Laboratory Improvement Amendments of 1988 (CLIA-88) as qualified to perform high complexity clinical laboratory testing.[facility], Department of Pathology, [address] [place] [address], [facility], Department of Pathology, [address] [place] [address], [facility], [facility], [address] [place] [address], DMNFR METABOLIC [id number] 06:27:23 Test Item Value Reference Range Interpretation [...] not appl icable for dialysis patien ts Equipment Records Supervisor ID - REYNA GCBC W/PLT COUNT & AUTO [id number] 06:20:00 Test Item Value Reference Range Interpretation [...] = 2801) CBC W/PLT COUNT & AUTO [id number] 22:12:52 Test Item Value Reference Range Interpretation [...] PERCENT (BEAKER) (test code = 2801) POC-Glucose [id number] 16:16:42 Test Item Value Reference Range Interpretation Comments POC-Glucose Meter (test 172 mg/dL 70-110 H : TE STED AT [facility] code = 1538) [address] [place] [address], [facility] 30: Equipment Records Supervisor/Techni david ID = [id number] for LAINEY, KEYAIRA Lab Interpretation (test Abnormal code = 75869-3) [facility]-Glucose [id number] 16:16:42 Test Item Value Reference Range Interpretation Comments POC-Glucose Meter (test 172 mg/dL 70-110 H : TE STED AT [facility] code = 1538) [address] [place] [address], [facility] 30: Equipment Records Supervisor/Techni david ID = [id number] for LAINEY, KEYAIRA Lab Interpretation (test Abnormal code = 25225-9) [facility]-Glucose [id number] 16:16:42 Test Item Value Reference Range Interpretation Comments POC-Glucose Meter (test 172 mg/dL 70-110 H : TE STED AT [facility] code = 1538) [address] [place] [address], 770 30: Equipment Records Supervisor/Techni david ID = [id number] for LAINEY, KEYAIRA Lab Interpretation (test Abnormal code = 96741-2) [facility]-Glucose [id number] 16:16:42 Test Item Value Reference Range Interpretation Comments POC-Glucose Meter (test 172 mg/dL 70-110 H : TE STED AT [facility] code = 1538) [address] [place] [address], [facility] 30: Equipment Records Supervisor/Techni david ID = [id number] for LAINEY, KEYAIRA Lab Interpretation (test Abnormal code = 34927-4) [facility]-Glucose [id number] 16:16:42 Test Item Value Reference Range Interpretation Comments POC-Glucose Meter (test 172 mg/dL 70-110 H : TE STED AT [facility] code = 1538) [address] [place] [address], [facility] 30: Equipment Records Supervisor/Techni david ID = [id number] for CHRISTOS RETANA Lab Interpretation (test Abnormal code = 32769-9) [facility] [id number] 16:16:42 Test Item Value Reference Range Interpretation Comments POC-GLUCOSE METER 172 mg/dL 70-110 H : TESTED A T [facility] 6720 (BEAKER) (test code = [facility], 1538) [address]: Equipment Records Supervisor/Techni david ID = [id number] for DA VIS, KEYAIRA POCT-GLUCOSE [id number] 12:05:01 Test Item Value Reference Range Interpretation Comments POC-GLUCOSE METER 209 mg/dL 70-110 H : TESTED A T [facility] 6720 (BEAKER) (test code = [facility], 1538) [address]: Equipment Records Supervisor/Techni david ID = [id number] for DA VIS, KEYAIRA POCT-GLUCOSE [id number] 08:37:28 Test Item Value Reference Range Interpretation Comments POC-GLUCOSE METER 213 mg/dL 70-110 H : TESTED A T [facility] 6720 (BEAKER) (test code = [facility], 1538) [address]: Equipment Records Supervisor/Techni david ID = [id number] for DA VIS, KEYAIRA BASIC METABOLIC [id number] 06:35:17 Test Item Value Reference Range Interpretation [...] not appl icable for dialysis patien ts Equipment Records Supervisor ID - RAKAN WHEMOGLOBIN AND [id number] 05:31:55 Test Item Value Reference Range Interpretation Comments HEMOGLOBIN (BEAKER) (test code = 12.1 GM/DL 11.2-15.7 410) HEMATOCRIT (BEAKER) (test code = 34.9 % 34.1-44.9 411) Equipment Records Supervisor ID - [id number]-GLUCOSE [id number] 19:34:37 Test Item Value Reference Range Interpretation Comments POC-GLUCOSE METER 185 mg/dL 70-110 H : TESTED A T [facility] 6720 (BEAKER) (test code = [facility], 1538) [address]: Equipment Records Supervisor/Techni david ID = [id number] for SA KYRIE CASTILLO BASIC METABOLIC [id number] 19:07:55 Test Item Value Reference Range Interpretation [...] not appl icable for dialysis patien ts Equipment Records Supervisor ID - ADMINHEMOGLOBIN AND [id number] 18:54:51 Test Item Value Reference Range Interpretation Comments HEMOGLOBIN (BEAKER) (test code = 13.3 GM/DL 11.2-15.7 410) HEMATOCRIT (BEAKER) (test code = 38.4 % 34.1-44.9 411) Equipment Records Supervisor ID - [id number] 12:24:00 Test Item Value Reference Range Interpretation Comments CROSSMATCH (test code = 2264) COMPATIBLE Unit ABO (test code = O Pos 7364926) UNIT NUMBER (test code = [id number] 934-0) Status (test code = 9241916) READY Blood Bank Product (test code RED BLOOD CELLS = 2263) PRODUCT CODE (test code = Q1199N55 933-2) [facility] [id number] 12:24:00 Test Item Value Reference Range Interpretation Comments CROSSMATCH (test code = 2264) COMPATIBLE Unit ABO (test code = O Pos 9101453) UNIT NUMBER (test code = [id number] 934-0) Status (test code = 2492642) READY Blood Bank Product (test code RED BLOOD CELLS = 2263) PRODUCT CODE (test code = G0561Q81 933-2) [facility] [id number] 12:24:00 Test Item Value Reference Range Interpretation Comments CROSSMATCH (test code = 2264) COMPATIBLE Unit ABO (test code = O Pos 1217521) UNIT NUMBER (test code = [id number] 934-0) Status (test code = 8921443) READY Blood Bank Product (test code RED BLOOD CELLS = 2263) PRODUCT CODE (test code = P0116F73 933-2) [id number] 12:24:00 Test Item Value Reference Range Interpretation Comments CROSSMATCH (test code = 2264) COMPATIBLE Unit ABO (test code = O Pos 4052805) UNIT NUMBER (test code = [id number] 934-0) Status (test code = 7275085) READY Blood Bank Product (test code RED BLOOD CELLS = 2263) PRODUCT CODE (test code = T1509F30 933-2) [facility] [id number] 12:24:00 Test Item Value Reference Range Interpretation Comments CROSSMATCH (test code = 2264) COMPATIBLE Unit ABO (test code = O Pos 4256659) UNIT NUMBER (test code = [id number] 934-0) Status (test code = 6412042) READY Blood Bank Product (test code RED BLOOD CELLS = 2263) PRODUCT CODE (test code = Q1275I91 933-2) [facility] [id number] 11:32:46 Test Item Value Reference Range Interpretation Comments POC-GLUCOSE METER 137 mg/dL 70-110 H : TESTED A T [facility] 6720 (BEAKER) (test code = [place], 1538) 17529: Equipment Records Supervisor/Techni david ID = [id number] for LUIS DANIEL MEDINA POCT [id number] 14:43:44 Test Item Value Reference Range Interpretation Comments POCT Creatinine (test code = 0.7 mg/dL 0.5-1.6 [id number]) Lab Interpretation (test code = Normal 31856-0) [facility]
--- NOTE | 2023-04-19 09:31 | RAD REPORT ---
EXAM DESCRIPTION: CT - Head Brain Wo Cont - 04/19/2023 9:15 am CLINICAL HISTORY: HEADACHE COMPARISON: Head Brain Wo Cont dated 02/01/2023; Head Brain Wo Cont dated 12/13/2022 TECHNIQUE: All CT scans are performed using dose optimization technique as appropriate and may inclu de automated exposure control or mA/KV adjustment according to patient size. FINDINGS: No intracranial hemorrhage, hydrocephalus or extra-axial fluid collection.No areas of brai n edema or evidence of midline shift. The paranasal sinuses and mastoids are clear. The calvarium is intact. IMPRESSION: No acute intracranial abnormality.
[2023-04-19] MEDS ORDERED: IBUPROFEN 400 MG TAB ONE (09:35)
[2023-04-19 09:45] LABS: Absolute Lymphocytes (CBC) 2.2 K/uL (0.7-4.9); Hematocrit 34.5 % (36.0-45.0); Lymphocytes % 29.8 % (15.3-44.8); MCV 94.6 fL (80-100); MPV 8.3 fL (7.6-11.3); Platelets 274 thou/uL (152-406); RBC Red Blood Cell Count 3.65 M/uL (3.86-4.86)
--- NOTE | 2023-04-19 09:45 | RAD REPORT ---
EXAM DESCRIPTION: RAD - Chest Single View - 04/19/2023 9:29 am CLINICAL HISTORY: CHEST PAIN Chest pain. COMPARISON: Chest Single View dated 02/01/2023; Chest Single View dated 12/13/2022; Chest Single View d ated 08/05/2022; Chest Single View dated 02/11/2022 FINDINGS: Portable technique limits examination quality. The lungs are grossly clear. The heart is normal in size. No displaced fractures. IMPRESSION: No acute intrathoracic process suspected.
[2023-04-19 10:02] LABS: Potassium 3.5 mEq/L (3.5-5.1); Troponin High Sensitivity 7.5 pg/mL (<58.9)
[2023-04-19 10:08] LABS: SARS-CoV-2 Antigen Rapid Res Negative (Negative)
--- NOTE | 2023-04-19 11:42 | EDPHYS ---
Physician Documentation [facility] Name: Katya Hinojosa Age: 73 yrs Sex: Female : 1950 Arrival Date: 04/19/2023 Time: 08:34 Bed 8 Private MD: Mike Zamudio ED Physician Simon Chen HPI: 04/19 10:41 This 73 yrs old Female presents to ER via Ambulatory with complaints of rn Headache, Nausea, Diarrhea. 10:41 The patient complains of pain to the forehead. The patient describes the headache as rn aching. Onset: The symptoms/episode began/occurred yesterday. Associated signs and symptoms: Pertinent positives: nausea, Pertinent negatives: altered mental status, fever, rash, vision changes, vision loss, weakness, vertigo. Severity of symptoms: At its worst the pain was mild, in the emergency department the pain is unchanged. Headache History: The patient has had previous headaches and this one is similar to previous episodes. The patient has experienced similar episodes in the past. Patient reports headache and malaise for the last 2 days. No fever. Reports was going to work today and then had thought to come here to get tested for COVID. No known sick contacts. Headache not as bad as she has had in the past and has history of migraines. No focal neurological deficits. No trauma. No vision changes. Reports nausea and diarrhea as well.. Historical: - Allergies: 10:04 No Known Allergies; ld1 - PMHx: 10:04 Diabetes - NIDDM; High Cholesterol; Hypertension; Hypothyroidism; ld1 - Immunization history:: Adult Immunizations up to date. - Social history:: Smoking status: Patient denies any tobacco usage or history of. - Family history:: not pertinent. - Hospitalizations: : No recent hospitalization is reported. ROS: 10:41 Constitutional: Negative for fever, chills, and weight loss, Eyes: Negative for injury, rn pain, redness, and discharge, Neck: Negative for injury, pain, and swelling, Cardiovascular: Negative for chest pain, palpitations, and edema, Respiratory: Negative for wheezing, and pleuritic chest pain, Abdomen/GI: Negative for abdominal pain, nausea, vomiting, diarrhea, and constipation, MS/Extremity: Negative for injury and deformity, Skin: Negative for injury, rash, and discoloration, Neuro: Negative for weakness, numbness, tingling, and seizure. Exam: 10:41 Constitutional: This is a well developed, well nourished patient who is awake, alert, rn and in no acute distress. Ambulatory to room without difficulty or distress Head/Face: Normocephalic, atraumatic. Eyes: Pupils equal round and reactive to light, extra-ocular motions intact. Neck: Trachea midline, no thyromegaly or masses palpated, and no cervical lymphadenopathy. Supple, full range of motion without nuchal rigidity, or vertebral point tenderness. No Meningismus. Cardiovascular: Bradycardic, regular. No pulse deficits. Respiratory: No increased work of breathing, no retractions or nasal flaring. Abdomen/GI: Soft, non-tender Skin: Warm, dry MS/ Extremity: Pulses equal, no cyanosis. Neuro: Awake and alert, GCS 15, oriented to person, place, time, and situation. Cranial nerves II-XII grossly intact. Motor strength 5/5 in all extremities. Sensory grossly intact. Cerebellar exam normal. Normal gait. Vital Signs: 09:03 BP 176 / 80; Pulse 54; Resp 16; Temp 97.7(TE); Pulse Ox 99% on R/A; hb 10:03 BP 132 / 66; Pulse 46; Resp 18; Pulse Ox 97% on R/A; ld1 10:52 BP 143 / 54; Pulse 49; Resp 18; Pulse Ox 97% on R/A; ld1 12:26 BP 139 / 60; Pulse 50; Resp 18; Pulse Ox 100% on R/A; ld1 [place] Coma Score: 11:40 Eye Response: spontaneous(4). Motor Response: obeys commands(6). Verbal Response: rn oriented(5). Total: 15. MDM: 08:44 Patient medically screened. rn 11:40 Differential diagnosis: cluster headache, hypertensive headache, migraine, tension rn headache, vasomotor headache, COVID, viral syndrome. Data reviewed: vital signs, nurses notes, lab test result(s), EKG, radiologic studies, CT scan, plain films, and as a result, I will discharge patient. 11:41 Counseling: I had a detailed discussion with the patient and/or guardian regarding the rn historical points, exam findings, and any diagnostic results supporting the discharge/admit diagnosis, lab results, radiology results, the need for outpatient follow up, to return to the emergency department if symptoms worsen or persist or if there are any questions or concerns that arise at home. Special discussion: I discussed with the patient/guardian in detail that at this point there is no indication for admission to the hospital. It is understood, however, that if the symptoms persist or worsen the patient needs to return immediately for re-evaluation. 04/19 09:08 Order name: Basic Metabolic Panel; Complete Time: 10:16 rn 04/19 09:08 Order name: CBC with Diff; Complete Time: 10:16 rn 04/19 09:08 Order name: D-Dimer; Complete Time: 10:16 rn 04/19 09:08 Order name: NT PRO-BNP; Complete Time: 10:16 rn 04/19 09:08 Order name: Troponin HS; Complete Time: 10:16 rn 04/19 09:08 Order name: SARS RAPID; Complete Time: 10:16 rn 04/19 09:08 Order name: Flu; Complete Time: 10:16 rn 04/19 09:08 Order name: CT Head Brain wo Cont; Complete Time: 10:16 rn 04/19 09:08 Order name: XRAY Chest (1 view); Complete Time: 10:16 rn 04/19 09:08 Order name: EKG; Complete Time: 09: rn 04/19 09:08 Order name: Cardiac monitoring; Complete Time: 09:29 rn 04/19 09:08 Order name: EKG - Nurse/Tech; Complete Time: 09:36 rn 04/19 09:08 Order name: IV Saline Lock; Complete Time: 09:36 rn 04/19 09:08 Order name: Labs collected and sent; Complete Time: 09:36 rn 04/19 09:08 Order name: O2 Per Protocol; Complete Time: 09:21 rn 04/19 09:08 Order name: O2 Sat Monitoring; Complete Time: 09:21 rn Administered Medications: 09:29 Drug: Ibuprofen PO 800 mg Route: PO; ld1 12:22 Drug: morphine IM 2 mg Route: IM; Site: left gluteus; ld1 12:23 Drug: Ondansetron PO 4 mg Route: PO; ld1 Disposition Summary: 04/19/23 11:42 Discharge Ordered Location: Home rn Problem: new rn Symptoms: have improved rn Condition: Stable rn Diagnosis - Headache rn - Other malaise and fatigue rn - Diarrhea, unspecified rn Followup: rn - With: Private Physician - When: As needed - Reason: Recheck today's complaints, Re-evaluation by your physician Discharge Instructions: - Discharge Summary Sheet rn - Diarrhea, Adult rn - General Headache Without Cause rn - Hypertension, Adult rn Forms: - Medication Reconciliation Form rn - Thank You Letter rn - 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
--- NOTE | 2023-04-19 11:42 | ER ---
Nurse's Notes [facility] Name: Katya Hinojosa Age: 73 yrs Sex: Female : 1950 Arrival Date: 04/19/2023 Time: 08:34 Bed 8 Private MD: Mike Zamudio Diagnosis: Headache;Other malaise and fatigue;Diarrhea, unspecified Presentation: 04/19 09:03 Chief complaint: Headache, N/D, chest pressure and SOB x 3 days. Coronavirus screen: Client presents with at least one sign or symptom that may indicate coronavirus-19. Provider contacted for isolation considerations. Ebola Screen: No symptoms or risks identified at this time. Initial Sepsis Screen: Does the patient meet any 2 criteria? HR > 90 bpm. No. Patient's initial sepsis screen is negative. Does the patient have a suspected source of infection? No. Patient's initial sepsis screen is negative. Risk Assessment: Do you want to hurt yourself or someone else? Patient reports no desire to harm self or others. Onset of symptoms was April 16, 2023. 09:03 Method Of Arrival: Ambulatory 09:03 Acuity: AMAYA 3 Triage Assessment: 12:58 Pain: Also complains of. ld1 12:58 Headache History: Denies prior headaches. General: Appears in no apparent distress. ld1 comfortable, Behavior is calm, cooperative, appropriate for age. Pain: Complains of pain in face Pain does not radiate. Pain currently is 8 out of 10 on a pain scale. Quality of pain is described as throbbing, Pain began suddenly. EENT: No signs and/or symptoms were reported regarding the EENT system. Neuro: Level of Consciousness is awake, alert, obeys commands, Oriented to person, place, time, situation. Cardiovascular: Capillary refill < 3 seconds Patient's skin is warm and dry. Respiratory: Airway is patent Respiratory effort is even, unlabored. GI: Abdomen is round non-distended. : No signs and/or symptoms were reported regarding the genitourinary system. Derm: No signs and/or symptoms reported regarding the dermatologic system. Musculoskeletal: No signs and/or symptoms reported regarding the musculoskeletal system. Historical: - Allergies: 10:04 No Known Allergies; ld1 - PMHx: 10:04 Diabetes - NIDDM; High Cholesterol; Hypertension; Hypothyroidism; ld1 - Immunization history:: Adult Immunizations up to date. - Social history:: Smoking status: Patient denies any tobacco usage or history of. - Family history:: not pertinent. - Hospitalizations: : No recent hospitalization is reported. Screenin:04 [facility] ED Fall Risk Assessment (Adult) History of falling in the last 3 months, ld1 including since admission No falls in past 3 months (0 pts). Abuse screen: Denies threats or abuse. Denies injuries from another. Nutritional screening: No deficits noted. Tuberculosis screening: No symptoms or risk factors identified. Assessment: 10:03 General: Appears in no apparent distress. comfortable, Behavior is calm, cooperative, ld1 appropriate for age. Pain: Denies pain. Neuro: Level of Consciousness is awake, alert, obeys commands, Oriented to person, place, time, situation. Cardiovascular: Capillary refill < 3 seconds Patient's skin is warm and dry. Rhythm is sinus bradycardia. Respiratory: Airway is patent Respiratory effort is even, unlabored. GI: Abdomen is round non-distended, Reports diarrhea, nausea. : No signs and/or symptoms were reported regarding the genitourinary system. EENT: No signs and/or symptoms were reported regarding the EENT system. Derm: No signs and/or symptoms reported regarding the dermatologic system. Musculoskeletal: No signs and/or symptoms reported regarding the musculoskeletal system. 12:26 Reassessment: No changes from previously documented assessment. Patient and/or family ld1 updated on plan of care and expected duration. Pain level reassessed. Patient is alert, oriented x 3, equal unlabored respirations, skin warm/dry/pink. 12:59 Reassessment: See triage assessment. ld1 Vital Signs: 09:03 BP 176 / 80; Pulse 54; Resp 16; Temp 97.7(TE); Pulse Ox 99% on R/A; hb 10:03 BP 132 / 66; Pulse 46; Resp 18; Pulse Ox 97% on R/A; ld1 10:52 BP 143 / 54; Pulse 49; Resp 18; Pulse Ox 97% on R/A; ld1 12:26 BP 139 / 60; Pulse 50; Resp 18; Pulse Ox 100% on R/A; ld1 [place] Coma Score: 11:40 Eye Response: spontaneous(4). Motor Response: obeys commands(6). Verbal Response: rn oriented(5). Total: 15. ED Course: 08:37 Patient arrived in ED. rg4 08:38 Mike Zamudio DO is Private Physician. rg4 08:44 Simon Chen MD is Attending Physician. rn 09:03 Arm band placed on. hb 09:07 Triage completed. hb 09:16 CT Head Brain wo Cont In Process Unspecified. EDMS 09:21 Wendie Lo, RN is Primary Nurse. ld1 09:31 XRAY Chest (1 view) In Process Unspecified. EDMS 09:36 Flu Sent. ld1 09:36 SARS RAPID Sent. ld1 10:04 Patient has correct armband on for positive identification. Placed in gown. Bed in low ld1 position. Call light in reach. Side rails up X2. municipal court magistrate on. Pulse ox on. NIBP on. Door closed. Noise minimized. Warm blanket given. 10:04 No provider procedures requiring assistance completed. Inserted saline lock: 22 gauge ld1 in right antecubital area, using aseptic technique. Blood collected. 13:00 IV discontinued, intact, bleeding controlled, No redness/swelling at site. ld1 Administered Medications: 09:29 Drug: Ibuprofen PO 800 mg Route: PO; ld1 12:22 Drug: morphine IM 2 mg Route: IM; Site: left gluteus; ld1 12:23 Drug: Ondansetron PO 4 mg Route: PO; ld1 Medication: 12:59 VIS not applicable for this client. ld1 Outcome: 11:42 Discharge ordered by . rn 13:00 Discharged to home ambulatory. ld1 13:00 Condition: stable 13:00 Discharge instructions given to patient, Instructed on discharge instructions, follow up and referral plans. Demonstrated understanding of instructions, follow-up care. 13:00 Patient left the ED. ld1 Signatures: Dispatcher [employer] EDSimon Morgan MD MD rn Baxter, Heather, RN RN hb Garcia, Rubi rg4 Wendie Lo RN RN ld1
[2023-04-19] MEDS ORDERED: ONDANSETRON 4 MG (ODT) TAB ONE (12:31)
[2023-04-19] MEDS ORDERED: MORPHINE 2 MG/ML SYR ONE (12:31)
[2023-04-19 13:24] VITALS: TEMP 97.7
[2023-04-19 13:27] VITALS: BP 139/60; O2SAT 100
--- NOTE | 2023-04-19 16:42 | EKG ---
Test Date: 2023-04-19 Test Time: 09:34:19 Upper And Bottom Lacer Hand: CINDY MEASUREMENT RESULTS: Intervals: Rate: 47 MA: 186 QRSD: 82 QT: 442 QTc: 391 Daphne: P: 40 MA: 186 QRS: -16 T: -35 INTERPRETIVE STATEMENTS: Sinus bradycardia with premature atrial complexes in a pattern of bigeminy Voltage criteria for left ventricular hypertrophy Inferior infarct, age undetermined Abnormal ECG Compared to ECG 02/03/2023 18:20:05 Atrial premature complex(es) now present Left ventricular hypertrophy now present Myocardial infarct finding now present T-wave abnormality no longer present Electronically Signed On 04-19-23 16:41:44 CDT by Keyshawn Rm
== END 2023-04-19 13:00 | disposition home or self-care (01) ==
LOC: ER 08:34
DX: R51.9 Headache, unspecified (principal); R53.81 Other malaise; R53.83 Other fatigue; R19.7 Diarrhea, unspecified; E11.9 Type 2 diabetes mellitus without complications; E78.00 Pure hypercholesterolemia, unspecified; I10 Essential (primary) hypertension; E03.9 Hypothyroidism, unspecified; Z20.822 Contact with and (suspected) exposure to COVID-19
CPT/HCPCS: 93005; 85025; 80048; 36415; 85379; 84484; 83880; 87804 ×2; 70450; 71045; 96372; 99285; 87811; Q0162; J2270

== ENCOUNTER 2023-05-02 12:31 | Emergency (ER) | payer OTHER ==
--- OUTSIDE RECORDS SUMMARY | 2023-05-02 12:39 | XMS REPORT | Continuity of Care Document ---
:1950 Author Organization [facility] t Address [address] [facility] [address] [place] [address] Care Team Providers Name Role Phone Mike Zamudio Primary Care Physician Mike Zamudio Attending Clinician Unavailable Stuart Wylie MD Attending Clinician STUART WYLIE Attending Clinician Unavailable Sheila Rudd MD Attending Clinician Stan Garrido MD Attending Clinician RADIOLOGY Attending Clinician Unavailable Radiology Attending Clinician Unavailable Doctor Unassigned, Bascom Attending Clinician Unavailable Be Silva MD Attending Clinician Only, Keshav Db Test Attending Clinician Unavailable Jaince Carmichael Attending Clinician JANICE FOWLER Attending Clinician Unavailable Elenita Humphreys MD Attending Clinician Saleem Louise MD Attending Clinician Lab, Ang - Db Attending Clinician Unavailable SALEEM LOUISE Attending Clinician Unavailable SALEEM LOUISE Attending Clinician Unavailable RENAN MONSALVE Attending Clinician Unavailable Renan Monsalve DO Attending Clinician Willie Garner Attending Clinician Lab, Adc Fam Pob I Attending Clinician Unavailable STUART WYLIE Admitting Clinician Unavailable STUART WYLIE Admitting Clinician Unavailable AJVI SHANKS Admitting Clinician Unavailable PRINCE MELCHOR Admitting Clinician Unavailable RENAN MONSALVE Admitting Clinician Unavailable Payers Payer Name Policy Type Policy Number Effective Date Expiration Date Ave vela AddressReport [id number] 2018spring 00:00:00 [employer] [id number] Common Sp maria ines ing Medicare - [facility] Problems Condition Condition Condition Status Onset Resolution Last Treating Co mments Source Name Details Category Date Date Treatment Clinician Date Renal mass Renal mass Disease Active C [facility] 09-09 [facility] 00:00: [address] Dyslipidem Dyslipidem Disease Active 2015-08 U corina ia ia 2-06 ity of 00:00: [place] [facility] Branch Prediabete Prediabete Disease Active U corina s s 9-06 ity of 00:00: [address] Branch Dizzy Dizzy Disease Active 2014-08 Univers spells spells 2-04 ity of 00:00: [address] Branch Palpitatio Palpitatio Disease Active 2014-08 U corina ns ns 2-04 ity of 00:00: [place] [facility] Branch Shortness Shortness Disease Active 2014-08 Uni vers of breath of breath 2-04 ity of 00:00: [place] [facility] Atypical Atypical Disease Active 2014-08 Unive rs chest pain chest pain 2-04 it y of 00:00: [address] Branch Postsurgic Postsurgic Disease Active 2014-08 U corina al al 202 ity of [place]ro[place] [address] [place] [address] [id number] Other Problem Common chronic Spirit pain - [facility] Disorder 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 [facility] [id number] History of Problem Co mmon diabetes Spirit mellitus - [facility] [id number] Essential Problem Comm on hypertensi Spirit on [facility] [id number] Gastroesop Problem Co mmon hageal Spirit reflux - CHI disease [facility] esophagiti Medica s [place] [id number] Primary Problem Commo n osteoarthr Spirit itis, - CHI unspecifie [facility] Acquired Acquired Problem Commo n hypothyroi hypothyroi Sp maria ines dism dism - CHI [facility] [id number] Encounter Problem Com mon for Spirit gynecologi - CHI tito examinatio [facility] n without Medical abnormal Center finding [id number] Body mass Problem Com mon index Spirit (BMI) - CHI 32.0-32.9, [facility] [id number] Other Problem Common obesity Spirit due to - [facility]I excess [facility] [id number] Type 2 Problem Common diabetes Spirit mellitus - [facility] with 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 [id number] Current Problem Common moderate Spirit episode of - CHI major [facility] disorder Medical without Center prior episode Allergies, Adverse Reactions, Alerts Allergy Allergy Status Severity Reaction(s) Onset Inactive Treating Comm ents Source Name Type Date Date Clinician NO KNOWN Allergy Active [facility] NO KNOWN Drug [facility] Social History Social Habit Start Date Stop Date Quantity Comments Source History of Common Spirit - Tobacco Use [facility] Exposure to 2022-08-30 2022-09-09 Not sure [facility] SARS-CoV-2 00:00:00 10:26:00 Medical Center (event) Alcohol intake 2021-11-18 2021-11-18 0 /d University of 00:00:00 00:00:00 [facility] Tobacco use and 2015-07-15 2015-07-15 Smokeless tobacco Un iversity of exposure 00:00:00 00:00:00 non-user [facility] Sex Assigned At 1950 [address] [address] [facility]es 00:00:00 00:00:00 [facility] Center Smoking Status Start Date Stop Date Source Never Smoker Common Spirit - [facility] Medications Ordered Filled Start Stop Current Ordering Indication Dosage Frequency Signature Comments Components Source Medication Medication Date Date Medication? Clinician (SIG) Name Name carvediloL Yes 12.5mg Take 12.[address] (COREG) 1-28 mg by Lukes 12.5 MG 14:49: mouth 2 Medical tablet 14 (two) Center times daily with breakfast and dinner. atorvastati Yes 10mg QD Take [address] n (LIPITOR) 1-28 by mouth Luke s 10 MG 14:49: daily. Medical tablet 14 [place] ondansetron Yes 4mg Take [address] (ZOFRAN) 4 -28 by mouth 2 Melissa es MG tablet 14:49: (two) Medical 14 times Center daily as needed for Nausea. losartan Yes 25mg QD Take [address] 12.5 MG 1-28 by mouth Lukes halftab 14:49: daily. Medical half tablet 14 [place] famotidine Yes 20mg Q.5D Take 20 mg [...] [address] (ZOFRAN) 4 28 by mouth 2 Melissa es MG tablet 14:49: (two) Medical 14 times Center daily as needed for Nausea. losartan Yes 25mg QD Take [address] 12.5 MG -28 by mouth Lukes halftab 14:49: daily. Medical half tablet 14 [place] famotidine Yes 20mg Q.5D Take [address] (PEPCID) 20 28 by mouth 2 Cira kes MG tablet 14:49: (two) Medical 14 times Center daily. esomeprazol 0 Yes 40mg QD Take [address] e (NexIUM) - by mouth Lukes 40 MG 14:49: daily. Medical capsule 14 Center sertraline Yes 50mg QD Take [address] (ZOLOFT) 50 28 by mouth Luke s MG tablet 14:49: daily. Medica l 14 [place] metFORMIN 0 Yes 500mg Take [address] (GLUCOPHAGE 1-28 mg by Lukes ) 500 MG 14:49: mouth 2 Medica l tablet 14 (two) Center times daily with breakfast and dinner. levothyroxi 0 Yes 125ug Take [address] ne 1-28 mcg by Lukes (SYNTHROID, 14:49: mouth Medic al LEVOTHROID) 14 Every Center 125 MCG morning on tablet an empty stomach. amLODIPine 2023-0 Yes 5mg QD Take [address] (NORVASC) 5 1-28 by mouth Luke s MG tablet 14:49: daily. Medica l 14 [place] carvediloL 0 Yes 12.5mg Take 12.[address] (COREG) 1-28 mg by Lukes 12.5 MG 14:49: mouth 2 Medical tablet 14 (two) Center times daily with breakfast and dinner. atorvastati 0 Yes 10mg QD Take [address] [facility] (LIPITOR) -28 by mouth Luke s 10 MG 14:49: daily. Medical tablet 14 [place] ondansetron 0 Yes 4mg Take [address] (ZOFRAN) 4 1-28 by mouth 2 Melissa es MG tablet 14:49: (two) Medical 14 times Center daily as needed for Nausea. losartan 0 Yes 25mg QD Take [address] 12.5 MG -28 by mouth Lukes halftab 14:49: daily. Medical half tablet 14 [place] famotidine 0 Yes 20mg Q.5D Take [address] (PEPCID) 20 -28 by mouth 2 Cira kes MG tablet 14:49: (two) Medical 14 times Center daily. esomeprazol 0 Yes 40mg QD Take [address] [facility] (NexIUM) 09-11 by mouth Lukes 40 MG 14:49: daily. Medical capsule 14 [place] sertraline 0 Yes 50mg QD Take [address] (ZOLOFT) 50 -28 by mouth Luke s MG tablet 14:49: daily. Medica l 14 [place] metFORMIN 0 Yes 500mg Take 500 CHI [...] MG tablet 14:49: daily. Medica l 14 [place] carvediloL 0 Yes 12.5mg Take 12.[address] (COREG) 1-28 mg by Lukes 12.5 MG 14:49: mouth 2 Medical tablet 14 (two) Center times daily with breakfast and dinner. atorvastati 0 Yes 10mg QD Take [address] n (LIPITOR) 1-28 by mouth Luke s 10 MG 14:49: daily. Medical tablet 14 [place] ondansetron 0 Yes 4mg Take [address] (ZOFRAN) 4 -28 by mouth 2 Melissa es MG tablet 14:49: (two) Medical 14 times Center daily as needed for Nausea. losartan 0 Yes 25mg QD Take [address] 12.5 MG -28 by mouth Lukes halftab 14:49: daily. Medical half tablet 14 [place] famotidine Yes 20mg Q.5D Take [address] (PEPCID) 20 1-28 by mouth 2 Cira kes MG tablet 14:49: (two) Medical 14 times Center daily. esomeprazol 0 Yes 40mg QD Take [address] [facility] (NexIUM) -28 by mouth Lukes 40 MG 14:49: daily. Medical capsule 14 [place] sertraline 0 Yes 50mg QD Take [address] (ZOLOFT) 50 -28 by mouth Luke s MG tablet 14:49: daily. Medica 14 [place] metFORMIN 0 Yes 500mg Take 500 CHI [...] MG tablet 14:49: daily. Medica l 14 [place] carvediloL 0 Yes 12.5mg Take 12.5 CHI [...] [address] (ZOFRAN) 4 09-11 by mouth 2 Melissa es MG tablet 14:49: (two) Medical 14 times Center daily as needed for Nausea. losartan Yes 25mg QD Take [address] 12.5 MG 09-11 by mouth Lukes halftab 14:49: daily. Medical half tablet 14 Center famotidine Yes 20mg Q.5D Take [address] (PEPCID) 20 09-11 by mouth 2 Cira kes MG tablet 14:49: (two) Medical 14 times Center daily. esomeprazol Yes 40mg QD Take [address] [facility] (NexIUM) 09-11 by mouth Lukes 40 MG 14:49: daily. Medical capsule 14 Center sertraline Yes 50mg QD Take [address] (ZOLOFT) 50 09-11 by mouth Luke s MG tablet 14:49: daily. Medica l 14 Center metFORMIN Yes 500mg Take [address] (GLUCOPHAGE 1-28 mg by Lukes ) 500 MG 14:49: mouth 2 Medica l tablet 14 (two) Center times daily with breakfast and dinner. levothyroxi Yes 125ug Take [address] ne 1-28 mcg by [facility] (SYNTHROID, 14:49: mouth Medic al LEVOTHROID) 14 Every Center 125 MCG morning on tablet an empty stomach. amLODIPine Yes 5mg QD Take [address] (NORVASC) 5 09-11 by mouth Luke s MG tablet 14:49: daily. Medica l 14 Center acetaminoph 2022- No 1{tbl} Take [address] en-codeine 09-11 tablet by Melissa es (Tylenol-Co 00:00: 23:59 mouth Medi tito deine #3) 00 :00 every 6 Center 300-30 mg (six) per tablet hours as needed for Pain for up to 10 days. Max Daily Amount: 4 tablets docusate 2022- No 100mg Take 1 CHI S t sodium 09-11 capsule Lukes (COLACE) 00:00: 23:59 (100 mg Medic al 100 MG 00 :00 total) by Center capsule mouth daily as needed for up to 10 days. methocarbam 2022-0 2022- No 500mg Q.[id number] Take [address] oL 09-11 [id number] tablet Lukes (ROBAXIN) 00:00: 23:59 3D (500 [...] days. Max Daily Amount: 4 tablets docusate 2022-0 2022- No 100mg Take 1 CHI S t sodium 09-11 capsule [facility]ukes (COLACE) 00:00: 23:59 (100 mg Medic al 100 MG 00 :00 total) by Center capsule mouth daily as needed for up to 10 days. methocarbam 2022-0 2022- No 500mg Q.[id number] Take [address] oL 09-11 [id number] tablet Lukes (ROBAXIN) 00:00: 23:59 3D (500 [...] 10 days. methocarbam 2023-0 2023- No 500mg Q.[id number] Take [address] oL 09-11 [id number] tablet Lukes (ROBAXIN) 00:00: 23:59 3D (500 [...] 10 days. methocarbam 2022-0 2022- No 500mg Q.71095704 Take [address] oL 09-11 [id number] tablet Lukes (ROBAXIN) 00:00: 23:59 3D (500 [...] as needed for up to 10 days. acetaminoph 2022-0 2022- No 1{tbl} [...] up to 10 days. methocarbam No 500mg Q.45586105 Take [address] oL 09-11 [id number] tablet [facility]ukes (ROBAXIN) 00:00: 23:59 3D (500 mg Medi tito 500 MG 00 :00 total) by Center tablet mouth 3 (three) times daily for 10 days. methocarbam 2022- No 500mg Q.59071430 Take [address] oL 09-11 [id number] tablet [facility]ukes (ROBAXIN) 00:00: 23:59 3D (500 mg Medi tito 500 MG 00 :00 total) by Center tablet mouth 3 (three) times daily for 10 days. gadobenate 2021-08 No [id number] .2mL/kg 0.2 mL/kg, Univers dimeglumine 08-16 Intravenou i ty of (MULTIHANCE 22:45: 22:43 s, ONCE, 1 [place] -20 mL) 00 :00 dose, On Medical injection Wed Branch 0.2 mL/kg 06/16/22 at 1745, Routine iopamidol 2021-08- No [id number] 74mL 74 mL, U nivers (ISOVUE 05-15 Intravenou ity o f 370-500 mL) 15:15: 14:27 s, ONCE, 1 [place] injection 00 :00 dose, On Medica l 74 mL Sat Branch 05/15/22 at 1015, Routine Pseudoeph-B Pseudoeph-B 2021- No 5{ml_as QID Pseudoeph- romphen-DM romphen-DM 03-08 _needed Bromphen-D 30-2-10 30-2-10 00:00: 00:00 } M 30-2-10 MG/5ML MG/5ML 00 :00 MG/5ML Pseudoeph-B Pseudoeph-B 2022- No 5{ml_as QID Pseudoeph- romphen-DM romphen-DM 03-08 _needed Bromphen-D 30-2-10 30-2-10 00:00: 00:00 } M 30-2-10 MG/5ML MG/5ML 00 :00 MG/5ML amitriptyli 0 Yes [id number] 25mg Take 1 Univers ne 25 mg 3-24 tablet by ity of tablet 00:00: mouth at [place] 00 bedtime. Medical Branch amitriptyli Yes [id number] 25mg Take 1 Univers ne 25 mg 3-24 tablet by ity of tablet 00:00: mouth at [place] [address] bedtime. Medical Branch amitriptyli Yes [id number] 25mg Take 1 Univers ne 25 mg 3-24 tablet by ity of tablet 00:00: mouth at [place] [address] bedtime. Medical Branch amitriptyli 0 Yes [id number] 25mg Take 1 Univers ne 25 mg 3-24 tablet by ity of tablet 00:00: mouth at [place] 00 bedtime. Medical Branch amitriptyli 0 Yes [id number] 25mg Take 1 Univers ne 25 mg 3-24 tablet by ity of tablet 00:00: mouth at [place] 00 bedtime. Medical Branch amitriptyli 0 Yes [id number] 25mg Take 1 Univers ne 25 mg 3-24 tablet by ity of tablet 00:00: mouth at [place] 00 bedtime. Medical Branch amitriptyli 0 Yes [id number] 25mg Take 1 Univers ne 25 mg 3-24 tablet by ity of tablet 00:00: mouth at [place] 00 bedtime. Medical Branch amitriptyli 0 Yes [id number] 25mg Take 1 Univers ne 25 mg 3-24 tablet by ity of tablet 00:00: mouth at [place] [address] bedtime. Medical Branch amitriptyli 0 Yes [id number] 25mg Take 1 Univers ne 25 mg 3-24 tablet by ity of tablet 00:00: mouth at [place] 00 bedtime. Medical Branch amitriptyli 2-0 Yes [id number] 25mg Take 1 Univers ne 25 mg 3-24 tablet by ity of tablet 00:00: mouth at [place] [address] bedtime. Medical Branch amitriptyli 2-0 Yes [id number] 25mg Take 1 Univers ne 25 mg 3-24 tablet by ity of tablet 00:00: mouth at [place] [address] bedtime. Medical Branch amitriptyli 2-0 Yes [id number] 25mg Take 1 Univers ne 25 mg 3-24 tablet by ity of tablet 00:00: mouth at [place] [address] bedtime. Medical Branch amLODIPine 2-0 Yes Univers 10 mg 3-21 ity of tablet 00:00: [place] [facility] amLODIPine 2-0 Yes Univers 10 mg 3-21 ity of tablet 00:00: [place] [address] Medical Branch amLODIPine 2-0 Yes Univers 10 mg 3-21 ity of tablet 00:00: [place] [address] Medical Branch amLODIPine 2-0 Yes Univers 10 mg 3-21 ity of tablet 00:00: [place] [address] Medical Branch amLODIPine 2-0 Yes Univers 10 mg 3-21 ity of tablet 00:00: [place] [address] Medical Branch amLODIPine 2-0 Yes Univers 10 mg 3-21 ity of tablet 00:00: [place] [address] Medical Branch amLODIPine 2-0 Yes Univers 10 mg 3-21 ity of tablet 00:00: [place] [address] Medical Branch amLODIPine 2-0 Yes Univers 10 mg 3-21 ity of tablet 00:00: [place] [address] Medical Branch amLODIPine 2-0 Yes Univers 10 mg 3-21 ity of tablet 00:00: [place] [facility] amLODIPine 2-0 Yes Univers 10 mg 3-21 ity of tablet 00:00: [place] [address] Medical Branch amLODIPine 2-0 Yes Univers 10 mg 3-21 ity of tablet 00:00: [place] [address] Medical Branch amLODIPine 2022-0 Yes Univers 10 mg 3-21 ity of tablet 00:00: [place] [address] Medical Branch amLODIPine 2022-0 Yes Univers 10 mg 3-21 ity of tablet 00:00: [place] [address] Medical Branch ondansetron 2-0 Yes 4mg Take 4 mg U nivers [...] daily. Medica l per tablet Branch SERTraline 2021-0 Yes 50mg Take 50 mg U nivers 50 mg 2-14 by mouth ity of tablet 00:00: daily. [place] [facility] SERTraline 2021-0 Yes 50mg Take 50 mg U nivers 50 mg 2-14 by mouth ity of tablet 00:00: daily. [place] [facility] SERTraline 2021-0 Yes 50mg Take 50 mg U nivers 50 mg 2-14 by mouth ity of tablet 00:00: daily. [place] [facility] SERTraline 2021-0 Yes 50mg Take 50 mg U nivers 50 mg 2-14 by mouth ity of tablet 00:00: daily. [place] [facility] SERTraline 2021-0 Yes 50mg Take 50 mg U nivers 50 mg 2-14 by mouth ity of tablet 00:00: daily. [place] [facility] SERTraline 2021-0 Yes 50mg Take 50 mg U nivers 50 mg 2-14 by mouth ity of tablet 00:00: daily. [place] [facility] SERTraline 2021-0 Yes 50mg Take 50 mg U nivers 50 mg 2-14 by mouth ity of tablet 00:00: daily. [place] [facility] SERTraline 2022-0 Yes 50mg Take 50 mg U nivers 50 mg 2-14 by mouth ity of tablet 00:00: daily. [address] Branch SERTraline 2-0 Yes 50mg Take 50 mg U nivers 50 mg 2-14 by mouth ity of tablet 00:00: daily. [address] Branch SERTraline 2022-0 Yes 50mg Take 50 mg U nivers 50 mg 2-14 by mouth ity of tablet 00:00: daily. [address] SERTraline 2-0 Yes 50mg Take 50 mg U nivers 50 mg 2-14 by mouth ity of tablet 00:00: daily. [address] SERTraline 2-0 Yes 50mg Take 50 mg U nivers 50 mg 2-14 by mouth ity of tablet 00:00: daily. [address] SERTraline 2-0 Yes 50mg Take 50 mg U nivers 50 mg 2-14 by mouth ity of tablet 00:00: daily. [address] Synthroid Synthroid 2-0 No QD 125 [...] pirit e) e) 00:00: - CHI 00 [facility] Rocephin Rocephin 2020-0 No 1g Commo n (Ceftriaxon (Ceftriaxon 8-20 S pirit e) e) 00:00: - CHI 00 [facility] Rocephin Rocephin 2020-0 No 1g Commo n (Ceftriaxon (Ceftriaxon 8-20 S pirit e) e) 00:00: - CHI 00 [facility] Rocephin Rocephin 2020-0 No 1g Commo n (Ceftriaxon (Ceftriaxon 8-20 S pirit e) e) 00:00: - CHI 00 [facility] Rocephin Rocephin 2020-0 No 1g Commo n (Ceftriaxon (Ceftriaxon 8-20 S pirit e) e) 00:00: - CHI 00 [facility] Rocephin Rocephin 2020-0 No 1g Commo n (Ceftriaxon (Ceftriaxon 8-20 S pirit e) e) 00:00: - CHI 00 [facility] Rocephin Rocephin 2020-0 No 1g Commo n (Ceftriaxon (Ceftriaxon 8-20 S pirit e) e) 00:00: - CHI 00 [facility] Rocephin Rocephin 2020-0 No 1g Commo n (Ceftriaxon (Ceftriaxon 8-20 S pirit e) e) 00:00: - CHI 00 [facility] Rocephin Rocephin 2020-0 No 1g Commo n (Ceftriaxon (Ceftriaxon 8-20 S pirit e) e) 00:00: - CHI 00 [facility] Rocephin Rocephin 2020-0 No 1g Commo n (Ceftriaxon (Ceftriaxon 8-20 S pirit e) e) 00:00: - CHI 00 [facility] Rocephin Rocephin 2020-0 No 1g Commo n (Ceftriaxon (Ceftriaxon 8-20 S pirit e) e) 00:00: - CHI 00 [facility] Rocephin Rocephin 2020-0 No 1g Commo n (Ceftriaxon (Ceftriaxon 8-20 S pirit e) e) 00:00: - CHI 00 [facility] Rocephin Rocephin 2020-0 No 1g Commo n (Ceftriaxon (Ceftriaxon 8-20 S pirit e) e) 00:00: - CHI 00 [facility] Rocephin Rocephin 2020-0 No 1g Commo n (Ceftriaxon (Ceftriaxon 8-20 S pirit e) e) 00:00: - CHI 00 [facility] Rocephin Rocephin 2020-0 No 1g Commo n (Ceftriaxon (Ceftriaxon 8-20 S pirit e) e) 00:00: - CHI 00 [facility] Ondansetron Ondansetron 2019-0 Yes Mike 1 tablet Common HCl HCl 7-24 Zamudio Spirit 00:00: - CHI 00 [facility] Jardiance Jardiance 2020-0 Yes Mike 1 tablet Common 7-24 Zamudio Spirit 00:00: - CHI 00 [facility] MetFORMIN MetFORMIN 2019-0 Yes Mike 2 tablets Common HCl ER HCl ER 7-14 Zamudio with meal Spiri t 00:00: - CHI 00 [facility] Tradjenta Tradjenta 2019-0 Yes Mike 1 tablet Common 7-14 Zamudio Spirit 00:00: - CHI 00 [facility] Restasis Restasis 0 Yes Mike 1 drop C ommon 5-28 Zamudio into Spirit 00:00: affected - CHI 00 eye as [facility] Restasis Restasis 2019-0 No 1{drop_ BID Restasis 0.05 % 0.05 [...] 00:00: n to - CHI 00 affected [facility] Nystatin Nystatin No 1{appli BID Nystatin 911818 232566 8-06 cation_ 187191 UNIT/GM UNIT/GM 00:00: to_affe UNIT/GM 00 cted_ar ea} Nystatin Nystatin 2019- No 1{appli BID Nystatin 584411 105290 8-06 cation_ 146225 UNIT/GM UNIT/GM 00:00: to_affe UNIT/GM 00 cted_ar ea} Nystatin Nystatin 2019- No 1{appli BID Nystatin 261852 488231 8-06 cation_ 580227 UNIT/GM UNIT/GM 00:00: to_affe UNIT/GM 00 cted_ar ea} Nystatin Nystatin 20190 No 1{appli BID Nystatin 771061 215045 8-06 cation_ 074625 UNIT/GM UNIT/GM 00:00: to_affe UNIT/GM 00 cted_ar ea} omeprazole Yes [id number] 40mg Take 2 Univers 20 mg 2-13 tablets by ity of tablet 00:00: mouth [place] 00 daily. Medical Branch ondansetron Yes [id number] 4mg Take 1 Univers (ZOFRAN 2-13 tablet by ity of ODT) 4 mg 00:00: mouth [place] disintegrat 00 every 8 Medic al ing tablet (eight) Branch hours as needed for Nausea and Vomiting (N/V). omeprazole Yes [id number] 40mg Take 2 Univers 20 mg 2-13 tablets by ity of tablet 00:00: mouth [place] 00 daily. Medical Branch ondansetron 2018- Yes [id number] 4mg Take 1 Univers (ZOFRAN 2-13 tablet by ity of ODT) 4 mg 00:00: mouth [place] disintegrat 00 every 8 Medic al ing tablet (eight) Branch hours as needed for Nausea and Vomiting (N/V). omeprazole 2019- Yes [id number] 40mg Take 2 Univers 20 mg 2-13 tablets by ity of tablet 00:00: mouth [place] 00 daily. Medical Branch ondansetron Yes [id number] 4mg Take 1 Univers (ZOFRAN 2-13 tablet by ity of ODT) 4 mg 00:00: mouth [place] disintegrat 00 every 8 Medic al ing tablet (eight) Branch hours as needed for Nausea and Vomiting (N/V). omeprazole 2018- Yes [id number] 40mg Take 2 Univers 20 mg 2-13 tablets by ity of tablet 00:00: mouth [place] 00 daily. Medical Branch ondansetron 2019-0 Yes [id number] 4mg Take 1 Univers (ZOFRAN 2-13 tablet by ity of ODT) 4 mg 00:00: mouth [place] disintegrat 00 every 8 Medic al ing tablet (eight) Branch hours as needed for Nausea and Vomiting (N/V). omeprazole 2019-0 Yes [id number] 40mg Take 2 Univers 20 mg 2-13 tablets by ity of tablet 00:00: mouth [place] 00 daily. Medical Branch ondansetron 2019-0 Yes [id number] 4mg Take 1 Univers (ZOFRAN 2-13 tablet by ity of ODT) 4 mg 00:00: mouth [place] disintegrat 00 every 8 Medic al ing tablet (eight) Branch hours as needed for Nausea and Vomiting (N/V). omeprazole 2019-0 Yes [id number] 40mg Take 2 Univers 20 mg 2-13 tablets by ity of tablet 00:00: mouth [place] 00 daily. Medical Branch ondansetron 2019-0 Yes [id number] 4mg Take 1 Univers (ZOFRAN 2-13 tablet by ity of ODT) 4 mg 00:00: mouth [place] disintegrat 00 every 8 Medic al ing tablet (eight) Branch hours as needed for Nausea and Vomiting (N/V). omeprazole 2019-0 Yes [id number] 40mg Take 2 Univers 20 mg 2-13 tablets by ity of tablet 00:00: mouth [place] 00 daily. Medical Branch ondansetron 2019-0 Yes [id number] 4mg Take 1 Univers (ZOFRAN 2-13 tablet by ity of ODT) 4 mg 00:00: mouth [place] disintegrat 00 every 8 Medic al ing tablet (eight) Branch hours as needed for Nausea and Vomiting (N/V). omeprazole 2019-0 Yes [id number] 40mg Take 2 Univers 20 mg 2-13 tablets by ity of tablet 00:00: mouth [place] 00 daily. Medical Branch ondansetron 2019-0 Yes [id number] 4mg Take 1 Univers (ZOFRAN 2-13 tablet by ity of ODT) 4 mg 00:00: mouth [place] disintegrat 00 every 8 Medic al ing tablet (eight) Branch hours as needed for Nausea and Vomiting (N/V). omeprazole 2019-0 Yes [id number] 40mg Take 2 Univers 20 mg 2-13 tablets by ity of tablet 00:00: mouth [place] 00 daily. Medical Branch ondansetron 2019-0 Yes [id number] 4mg Take 1 Univers (ZOFRAN 2-13 tablet by ity of ODT) 4 mg 00:00: mouth [place] disintegrat 00 every 8 Medic al ing tablet (eight) Branch hours as needed for Nausea and Vomiting (N/V). omeprazole 2019-0 Yes [id number] 40mg Take 2 [facility] 20 mg 2-13 tablets by ity of tablet 00:00: mouth [place] 00 daily. Medical Branch ondansetron 2019-0 Yes [id number] 4mg Take 1 [facility] (ZOFRAN 2-13 tablet by ity of ODT) 4 mg 00:00: mouth [place] disintegrat 00 every 8 Medic al ing tablet (eight) Branch hours as needed for Nausea and Vomiting (N/V). omeprazole 2019-0 Yes [id number] 40mg Take 2 [facility] 20 mg 2-13 tablets by ity of tablet 00:00: mouth [place] 00 daily. Medical Branch ondansetron 2019-0 Yes [id number] 4mg Take 1 [facility] (ZOFRAN 2-13 tablet by ity of ODT) 4 mg 00:00: mouth [place] disintegrat 00 every 8 Medic al ing tablet (eight) Branch hours as needed for Nausea and Vomiting (N/V). omeprazole 2019-0 Yes [id number] 40mg Take 2 [facility] 20 mg 2-13 tablets by ity of tablet 00:00: mouth [place] 00 daily. Medical Branch ondansetron 2019-0 Yes [id number] 4mg Take 1 [facility] (ZOFRAN 2-13 tablet by ity of ODT) 4 mg 00:00: mouth [place] disintegrat 00 every 8 Medic al ing tablet (eight) Branch hours as needed for Nausea and Vomiting (N/V). omeprazole 2019-0 Yes [id number] 40mg Take 2 [facility] 20 mg 2-13 tablets by ity of tablet 00:00: mouth [place] 00 daily. Medical Branch ondansetron 2019-0 Yes [id number] 4mg Take 1 [facility] (ZOFRAN 2-13 tablet by ity of ODT) 4 mg 00:00: mouth [place] disintegrat 00 every 8 Medic al ing tablet (eight) Branch hours as needed for Nausea and Vomiting (N/V). omeprazole Yes [id number] 40mg Take 2 [facility] 20 mg 2-13 tablets by ity of tablet 00:00: mouth [place] 00 daily. Medical Branch ondansetron Yes [id number] 4mg Take 1 [facility] (ZOFRAN 2-13 tablet by ity of ODT) 4 mg 00:00: mouth [place] disintegrat 00 every 8 Medic al ing tablet (eight) Branch hours as needed for Nausea and Vomiting (N/V). Diclofenac 2017- Yes [id number] Take 2-4 Univers Sodium 8-16 grams ity of (VOLTAREN) 00:00: three [place] 1 % gel 00 times a Medical day as Branch needed for pain levothyroxi Yes [id number] 100ug Take 1 Univers ne 100 mcg 8-16 tablet by ity of tablet 00:00: mouth [place] 00 every Medical morning. Branch lisinopril Yes [id number] 10mg Take 1 U nivers 10 mg 8-16 tablet by ity of tablet 00:00: mouth [place] 00 daily. Medical Branch Diclofenac Yes [id number] Take 2-4 Univers Sodium 8-16 grams ity of (VOLTAREN) 00:00: three [place] 1 % gel 00 times a Medical day as Branch needed for pain levothyroxi 2017- Yes [id number] 100ug Take 1 [facility] ne 100 mcg 8-16 tablet by ity of tablet 00:00: mouth [place] 00 every Medical morning. Branch lisinopril 2017- Yes [id number] 10mg Take 1 U nivers 10 mg 8-16 tablet by ity of tablet 00:00: mouth [place] 00 daily. Medical Branch Diclofenac 2017- Yes [id number] Take 2-4 Univers Sodium 8-16 grams ity of (VOLTAREN) 00:00: three [place] 1 % gel 00 times a Medical day as Branch needed for pain levothyroxi 2017- Yes [id number] 100ug Take 1 [facility] ne 100 mcg 8-16 tablet by ity of tablet 00:00: mouth [place] 00 every Medical morning. Branch lisinopril 2017- Yes [id number] 10mg Take 1 U nivers 10 mg 8-16 tablet by ity of tablet 00:00: mouth [place] 00 daily. Medical Branch Diclofenac 2017- Yes [id number] Take 2-4 [facility] Sodium 8-16 grams ity of (VOLTAREN) 00:00: three [place] 1 % gel 00 times a Medical day as Branch needed for pain levothyroxi Yes [id number] 100ug Take 1 [facility] ne 100 mcg 8-16 tablet by ity of tablet 00:00: mouth [place] 00 every Medical morning. Branch lisinopril Yes [id number] 10mg Take 1 U nivers 10 mg 8-16 tablet by ity of tablet 00:00: mouth [place] 00 daily. Medical Branch Diclofenac Yes [id number] Take 2-4 [facility] Sodium 8-16 grams ity of (VOLTAREN) 00:00: three [place] 1 % gel 00 times a Medical day as Branch needed for pain levothyroxi Yes [id number] 100ug Take 1 [facility] ne 100 mcg 8-16 tablet by ity of tablet 00:00: mouth [place] 00 every Medical morning. Branch lisinopril Yes [id number] 10mg Take 1 U nivers 10 mg 8-16 tablet by ity of tablet 00:00: mouth [place] 00 daily. Medical Branch Diclofenac Yes [id number] Take 2-4 [facility] Sodium 8-16 grams ity of (VOLTAREN) 00:00: three [place] 1 % gel 00 times a Medical day as Branch needed for pain levothyroxi Yes [id number] 100ug Take 1 [facility] ne 100 mcg 8-16 tablet by ity of tablet 00:00: mouth [place] 00 every Medical morning. Branch lisinopril Yes [id number] 10mg Take 1 U nivers 10 mg 8-16 tablet by ity of tablet 00:00: mouth [place] 00 daily. Medical Branch Diclofenac 2017- Yes [id number] Take 2-4 [facility] Sodium 8-16 grams ity of (VOLTAREN) 00:00: three [place] 1 % gel 00 times a Medical day as Branch needed for pain levothyroxi Yes [id number] 100ug Take 1 [facility] ne 100 mcg 8-16 tablet by ity of tablet 00:00: mouth [place] 00 every Medical morning. Branch lisinopril 2017- Yes [id number] 10mg Take 1 U nivers 10 mg 8-16 tablet by ity of tablet 00:00: mouth [place] 00 daily. Medical Branch Diclofenac 2017- Yes [id number] Take 2-4 [facility] Sodium 8-16 grams ity of (VOLTAREN) 00:00: three [place] 1 % gel 00 times a Medical day as Branch needed for pain levothyroxi Yes [id number] 100ug Take 1 [facility] ne 100 mcg 8-16 tablet by ity of tablet 00:00: mouth [place] 00 every Medical morning. Branch lisinopril Yes [id number] 10mg Take 1 U nivers 10 mg 8-16 tablet by ity of tablet 00:00: mouth [place] 00 daily. Medical Branch Diclofenac Yes [id number] Take 2-4 [facility] Sodium 8-16 grams ity of (VOLTAREN) 00:00: three [place] 1 % gel 00 times a Medical day as Branch needed for pain levothyroxi Yes [id number] 100ug Take 1 [facility] ne 100 mcg 8-16 tablet by ity of tablet 00:00: mouth [place] 00 every Medical morning. Branch lisinopril Yes [id number] 10mg Take 1 U nivers 10 mg 8-16 tablet by ity of tablet 00:00: mouth [place] 00 daily. Medical Branch Diclofenac Yes [id number] Take 2-4 [facility] Sodium 8-16 grams ity of (VOLTAREN) 00:00: three [place] 1 % gel 00 times a Medical day as Branch needed for pain levothyroxi Yes [id number] 100ug Take 1 [facility] ne 100 mcg 8-16 tablet by ity of tablet 00:00: mouth [place] 00 every Medical morning. Branch lisinopril Yes [id number] 10mg Take 1 U nivers 10 mg 8-16 tablet by ity of tablet 00:00: mouth [place] 00 daily. Medical Branch Diclofenac 2017- Yes [id number] Take 2-4 [facility] Sodium 8-16 grams ity of (VOLTAREN) 00:00: three [place] 1 % gel 00 times a Medical day as Branch needed for pain levothyroxi Yes [id number] 100ug Take 1 [facility] ne 100 mcg 8-16 tablet by ity of tablet 00:00: mouth [place] 00 every Medical morning. Branch lisinopril 2017- Yes [id number] 10mg Take 1 U nivers 10 mg 8-16 tablet by ity of tablet 00:00: mouth [place] 00 daily. Medical Branch Diclofenac Yes [id number] Take 2-4 [facility] Sodium 8-16 grams ity of (VOLTAREN) 00:00: three [place] 1 % gel 00 times a Medical day as Branch needed for pain levothyroxi Yes [id number] 100ug Take 1 [facility] ne 100 mcg 8-16 tablet by ity of tablet 00:00: mouth [place] 00 every Medical morning. Branch lisinopril Yes [id number] 10mg Take 1 U nivers 10 mg 8-16 tablet by ity of tablet 00:00: mouth [place] 00 daily. Medical Branch Diclofenac Yes [id number] Take 2-4 [facility] Sodium 8-16 grams ity of (VOLTAREN) 00:00: three [place] 1 % gel 00 times a Medical day as Branch needed for pain levothyroxi Yes [id number] 100ug Take 1 [facility] ne 100 mcg 8-16 tablet by ity of tablet 00:00: mouth [place] 00 every Medical morning. Branch lisinopril Yes [id number] 10mg Take 1 U nivers 10 mg 8-16 tablet by ity of tablet 00:00: mouth [place] 00 daily. Medical Branch Diclofenac Yes [id number] Take 2-4 Univers Sodium 8-16 grams ity of (VOLTAREN) 00:00: three [place] 1 % gel 00 times a Medical day as Branch needed for pain levothyroxi Yes [id number] 100ug Take 1 [facility] ne 100 mcg 8-16 tablet by ity of tablet 00:00: mouth [place] 00 every Medical morning. Branch lisinopril Yes [id number] 10mg Take 1 U nivers 10 mg 8-16 tablet by ity of tablet 00:00: mouth [place] 00 daily. Medical Branch atorvastati Yes [id number] 20mg Take 1 [facility] n 20 mg 1-17 tablet by ity of tablet 00:00: mouth at [place] 00 bedtime. Medical Branch atorvastati Yes [id number] 20mg Take 1 [facility] n 20 mg 1-17 tablet by ity of tablet 00:00: mouth at [place] 00 bedtime. Medical Branch atorvastati Yes [id number] 20mg Take 1 Univers n 20 mg 1-17 tablet by ity of tablet 00:00: mouth at [place] 00 bedtime. Medical Branch atorvastati 2017-0 Yes [id number] 20mg Take 1 Univers n 20 mg 1-17 tablet by ity of tablet 00:00: mouth at [place] [address] bedtime. [facility] Branch atorvasta 0 Yes [id number] 20mg Take 1 Univers n 20 mg 1-17 tablet by ity of tablet 00:00: mouth at [place] bedtime. Medical Branch atorvasta Yes [id number] 20mg Take 1 Univers n 20 mg 1-17 tablet by ity of tablet 00:00: mouth at [place] [address] bedtime. Medical Branch atorvasta Yes [id number] 20mg Take 1 Univers n 20 mg 1-17 tablet by ity of tablet 00:00: mouth at [place] [address] bedtime. [facility] Branch atorvasta Yes [id number] 20mg Take 1 Univers n 20 mg 1-17 tablet by ity of tablet 00:00: mouth at [place] [address] bedtime. Medical Branch atorvasta Yes [id number] 20mg Take 1 Univers n 20 mg 1-17 tablet by ity of tablet 00:00: mouth at [place] [address] bedtime. Medical Branch atorvasta Yes [id number] 20mg Take 1 Univers n 20 mg 1-17 tablet by ity of tablet 00:00: mouth at [place] [address] bedtime. Medical Branch atorvasta Yes [id number] 20mg Take 1 Univers n 20 mg 1-17 tablet by ity of tablet 00:00: mouth at [place] [address] bedtime. Medical Branch atorvasta 0 Yes [id number] 20mg Take 1 Univers n 20 mg 1-17 tablet by ity of tablet 00:00: mouth at [place] [address] bedtime. Medical Branch atorvasta 0 Yes [id number] 20mg Take 1 Univers n 20 mg 1-17 tablet by ity of tablet 00:00: mouth at [place] [address] bedtime. [facility] Branch atorvasta Yes [id number] 20mg Take 1 Univers n 20 mg 1-17 tablet by ity of tablet 00:00: mouth at [place] [address] bedtime. Medical Branch Levothyroxi Levothyroxi No Levothyrox ne Sodium ne [...] Lipitor Yes Mike 1 tablet Com mon [facility] Lisinopril Lisinopril Yes Mike 1 tablet [facility] Prilosec Prilosec Yes Mike 1 tablet C ommon OTC OTC [facility] Levothyroxi Levothyroxi Yes Mike 1 tablet Common ne Sodium ne Sodium [facility] on an Spi rit empty - [facility] stomach in [facility] metFORMIN metFORMIN No BID metFORMIN [...] HCTZ 100-12.5 MG 100-12.5 MG 100-12.5 MG Immunizations Ordered Filled Immunization Date Status Comments [facility] e Immunization Name Name FLUZONE HIGH DOSE FLUZONE HIGH DOSE 2022-06-24 Completed [facility] - OVER 65 OVER 65 13:44:00 [facility] FLUZONE HIGH DOSE FLUZONE HIGH DOSE 2022-06-24 Completed [facility] - OVER 65 OVER 65 13:44:00 [facility] FLUZONE HIGH DOSE FLUZONE HIGH DOSE 2022-06-24 Completed [facility] - OVER 65 OVER 65 13:44:00 [facility] FLUZONE HIGH DOSE FLUZONE HIGH DOSE 2022-06-24 Completed [facility] - OVER 65 OVER 65 13:44:00 [facility] FLUZONE HIGH DOSE FLUZONE HIGH DOSE 2022-06-24 Completed [facility] - OVER 65 OVER 65 13:44:00 [facility] Td 2021-04-21 Completed [facility] of 00:00:00 [facility] Td 2021-04-21 Completed [facility] of 00:00:00 [facility] Td 2021-04-21 Completed [facility] of 00:00:00 [facility] Td 2021-04-21 Completed [facility] of 00:00:00 [facility] Td 2021-04-21 Completed University of 00:00:00 [facility] Td 2021-04-21 Completed [facility] of 00:00:00 [facility] Td 2021-04-21 Completed University of 00:00:00 [facility] Td 2021-04-21 Completed [facility] of 00:00:00 [facility] Td 2021-04-21 Completed [facility] of 00:00:00 [facility] Td 2021-04-21 Completed [facility] of 00:00:00 [facility] Td 2021-04-21 Completed University of 00:00:00 [facility] Td 2021-04-21 Completed [facility] of 00:00:00 [facility] Td 2021-04-21 Completed University of 00:00:00 [facility] TD, NOS 2021-04-21 Completed [facility] of 00:00:00 [facility] Vital Signs Vital Name Observation Time Observation Value Comments Source HEIGHT 2022-09-09 10:00:00 165.1 cm WEIGHT 2022-09-09 10:00:00 87.454 kg HEIGHT 2022-09-09 10:00:00 165.1 cm WEIGHT 2022-09-09 10:00:00 87.454 kg HEIGHT 2022-09-09 10:00:00 165.1 cm WEIGHT 2022-09-09 10:00:00 87.454 kg height 2022-06-24 08:00:00 65 [in_i] [facility] weight 2022-06-24 08:00:00 199.8 [lb_av] [facility] temperature 2022-06-24 08:00:00 97.3 [degF] [facility] bmi 2022-06-24 08:00:00 33.24 kg/m2 [facility] oximetry 2022-06-24 08:00:00 99 % [facility] respiratory rate 2022-06-24 08:00:00 18 /min Comm on [facility] blood pressure 2022-06-24 08:00:00 145 mm[Hg] Common [facility] - systolic [facility] blood pressure 2022-06-24 08:00:00 72 mm[Hg] Common [facility] - diastolic [facility] height 2022-06-04 11:30:00 65 [in_i] [facility] weight 2022-06-04 11:30:00 200.6 [lb_av] [facility] temperature 2022-06-04 11:30:00 97.6 [degF] [facility] bmi 2022-06-04 11:30:00 33.38 kg/m2 [facility] oximetry 2022-06-04 11:30:00 99 % Common [facility] respiratory rate 2022-06-04 11:30:00 18 /min Comm on [facility] blood pressure 2022-06-04 11:30:00 184 mm[Hg] Common [facility] - systolic [facility] blood pressure 2022-06-04 11:30:00 77 mm[Hg] Common [facility] - diastolic [facility] height 2022-03-23 16:30:00 65 [in_i] Common [facility] weight 2022-03-23 16:30:00 198.6 [lb_av] [facility] temperature 2022-03-23 16:30:00 98.0 [degF] Common [facility] bmi 2022-03-23 16:30:00 33.05 kg/m2 [facility] oximetry 2022-03-23 16:30:00 94 % [facility] respiratory rate 2022-03-23 16:30:00 16 /min Comm on [facility] blood pressure 2022-03-23 16:30:00 125 mm[Hg] [facility] - systolic [facility] blood pressure 2022-03-23 16:30:00 59 mm[Hg] [facility] - diastolic [facility] height 2022-03-08 09:40:00 65 [in_i] [facility] weight 2022-03-08 09:40:00 199.4 [lb_av] [facility] bmi 2022-03-08 09:40:00 33.18 kg/m2 [facility] Systolic blood 2021-11-03 18:21:00 112 mm[Hg] Univer sity of pressure [facility] Diastolic blood 2021-11-03 18:21:00 65 mm[Hg] Unive rsity of pressure [facility] Heart rate 2021-11-03 18:21:00 62 /min [facility] Body height 2021-11-03 18:21:00 162.6 cm [facility] Body weight 2021-11-03 18:21:00 91.627 kg [facility] BMI 2021-11-03 18:21:00 34.67 kg/m2 [facility] Oxygen saturation in 2021-11-03 18:21:00 98 /min [facility] blood by [facility] Pulse oximetry Branch height 2021-10-26 16:10:00 65 [in_i] Common [facility] weight 2021-10-26 16:10:00 199.4 [lb_av] Common [facility] temperature 2021-10-26 16:10:00 97.2 [degF] Common [facility] bmi 2021-10-26 16:10:00 33.18 kg/m2 Common [facility] oximetry 2021-10-26 16:10:00 98 % Common [facility] respiratory rate 2021-10-26 16:10:00 17 /min Comm on [facility] blood pressure 2021-10-26 16:10:00 138 mm[Hg] Common [facility] - systolic [facility] blood pressure 2021-10-26 16:10:00 75 mm[Hg] [facility] - diastolic [facility] height 2021-09-28 16:20:00 65 [in_i] Common [facility] weight 2021-09-28 16:20:00 204.6 [lb_av] [facility] temperature 2021-09-28 16:20:00 97.7 [degF] Common [facility] bmi 2021-09-28 16:20:00 34.04 kg/m2 [facility] oximetry 2021-09-28 16:20:00 97 % Common [facility] respiratory rate 2021-09-28 16:20:00 17 /min Comm on [facility] blood pressure 2021-09-28 16:20:00 142 mm[Hg] [facility] - systolic [facility] blood pressure 2021-09-28 16:20:00 78 mm[Hg] [facility] - diastolic [facility] height 2021-09-15 15:30:00 65 [in_i] [facility] weight 2021-09-15 15:30:00 201.1 [lb_av] Common [facility] temperature 2021-09-15 15:30:00 97.5 [degF] Common S pirit [facility] bmi 2021-09-15 15:30:00 33.46 kg/m2 Common S [facility] oximetry 2021-09-15 15:30:00 97 % Common S pirit [facility] respiratory rate 2021-09-15 15:30:00 17 /min Comm on [facility] blood pressure 2021-09-15 15:30:00 137 mm[Hg] Common [facility] - systolic [facility] blood pressure 2021-09-15 15:30:00 76 mm[Hg] [facility] - diastolic [facility] height 2021-09-15 16:00:00 65 [in_i] [facility] weight 2021-09-15 16:00:00 201.1 [lb_av] [facility] temperature 2021-09-15 16:00:00 97.5 [degF] Common S pirit [facility] bmi 2021-09-15 16:00:00 33.46 kg[facility]m2 [facility]-15 16:00:00 97 % [facility] 2021-09-15 16:00:00 17 /min Comm on [facility] blood pressure 2021-09-15 16:00:00 137 mm[Hg] [facility] - systolic [facility] blood pressure 2021-09-15 16:00:00 76 mm[Hg] [facility] - diastolic [facility] height 2021-07-21 10:10:00 65 [in_i] Common S pirit [facility] weight 2021-07-21 10:10:00 200.0 [lb_av] [facility] temperature 2021-07-21 10:10:00 97.4 [degF] Common S pirit [facility] bmi 2021-07-21 10:10:00 33.28 kg/m2 [facility] oximetry 2021-07-21 10:10:00 97 % Common [facility] respiratory rate 2021-07-21 10:10:00 17 /min Comm on [facility] blood pressure 2021-07-21 10:10:00 149 mm[Hg] [facility] - systolic [facility] blood pressure 2021-07-21 10:10:00 87 mm[Hg] Common [facility] - diastolic [facility] Heart rate 2022-09-11 11:06:33 61 /min [facility] Body temperature 2022-09-11 11:06:33 36.61 Magdalena [facility] Oxygen saturation in 2022-09-11 11:06:33 100 /min [facility] Arterial blood by Medical Ce nter Pulse oximetry Systolic blood 2022-09-11 11:05:00 117 mm[Hg] [facility] Diastolic blood 2022-09-11 11:05:00 49 mm[Hg] [facility] Respiratory rate 2022-09-11 03:36:14 18 /min [facility] Body height 2022-09-09 10:00:[address] [facility] Body weight 2022-09-09 10:00:[address] [facility] BMI 2022-09-09 10:00:00 32.08 kg/m2 [facility] Procedures Procedure Date / Time Performing Clinician Source Performed BASIC METABOLIC PANEL 2022-09-11 05:21:00 Christopher Chaudhary [facility] CBC W/PLT COUNT & AUTO 2022-09-11 05:21:00 Kusum [facility] CBC W/PLT COUNT & AUTO 2022-09-11 05:21:00 Kusum [facility] CBC W/PLT COUNT & AUTO 2022-09-10 21:53:00 Kusum [facility] CBC W/PLT COUNT & AUTO 2022-09-10 21:53:00 Kusum [facility] POCT-GLUCOSE METER 2022-09-10 16:05:00 Clif [facility] POCT-GLUCOSE METER 2022-09-10 11:51:00 Clif [facility] POCT-GLUCOSE METER 2022-09-10 08:12:00 Clif [facility] BASIC METABOLIC PANEL 2022-09-10 05:07:00 Christopher Chaudhary [facility] HEMOGLOBIN AND 2022-09-10 05:07:00 Christopher Chaudhary [facility] POCT-GLUCOSE METER 2022-09-09 19:22:00 Clif [facility] HEMOGLOBIN AND 2022-09-09 18:47:00 Christopher Chaudhary [facility] BASIC METABOLIC PANEL 2022-09-09 18:47:00 Christopher Chaudhary [facility] TISSUE EXAM 2022-09-09 17:13:00 Clif [facility] TISSUE EXAM 2022-09-09 17:13:00 Clif [facility] ROBOTIC 2022-09-09 13:28:00 Clif [facility] LAPAROSCOPY,NEPHRECTOMY Center -PARTIAL PROCEDURE W/ DAVINCI XI 2022-09-09 13:28:00 Clif [facility] PREPARE RBC 2022-09-09 12:24:00 Clif [facility] ROBOTIC 2022-09-09 12:00:00 Clif [facility] LAPAROSCOPY,NEPHRECTOMY Center -PARTIAL PROCEDURE W/ DAVINCI XI 2022-09-09 12:00:00 Clif [facility] ECG 12-LEAD 2022-09-09 11:31:37 Unknown, Hl7 [facility] ECG 12-LEAD 2022-09-09 11:31:37 Stan Garrido [facility] ECG 12-LEAD 2022-09-09 11:31:37 Unknown, Hl7 Doctor [facility] ABORH, MANUAL 2022-09-09 11:27:00 Karina Barajas [facility] POCT-GLUCOSE METER 2022-09-09 11:20:00 ClifStuart [facility] TYPE AND SCREEN, 2022-09-09 11:09:00 Cha Dacosta [facility] AUTOMATED Center XR CHEST 2 VW 2022-08-17 14:11:39 Requisition, Paper [facility] Medical Branch ASSIGNMENT OF BENEFITS 2022-06-16 21:17:35 Doctor Unassigned, No [facility] Name Medical Branch HB CREATININE 2022-05-15 14:20:00 Radiology [facility] [place] SERUM/BLOOD FOR IMAGING Medical Branch DEXA AXIAL (HIP AND 2021-11-18 21:13:26 Requisition, Paper [facility] SPINE) Medical Branch CONSENT/REFUSAL FOR 2021-11-18 20:29:45 Doctor Unassigned, No [facility] T[facility] Name Medical Branch ASSIGNMENT OF BENEFITS 2021-11-18 20:29:31 Doctor Unassigned, No [facility] Medical Branch REFERRAL- 2021-10-27 05:01:00 Doctor Unassigned, No [facility] REQUEST/RESPONSE [facility] Plan of Care Planned Activity Planned Date Details Comments Source Future Scheduled 2023-04-15 Influenza Vaccine (#1) [facility] 00:00:00 [code = Influenza Medical Ce nter Vaccine (#1)] Future Scheduled 2023-04-[address] [...] breast Medical C enter (procedure) [code = 206665907] Future Scheduled [address] CT Colonography (combo) [facility] Test 00:00:00 [code = CT Colonography [facility] (combo)] Future Scheduled 1951 Screening for malignant [facility] Test 00:00:00 neoplasm of colon Medical Ce nter (procedure) [code = 249761486] Future Scheduled 1951 Screening for malignant [facility] Test 00:00:00 neoplasm of colon Medical Ce nter (procedure) [code = 009976599] Future Scheduled 1950 DXA SCAN [code = DXA [facility] Test 00:00:00 SCAN] [facility] Future Scheduled 1951 Screening for malignant [facility] Test 00:00:00 neoplasm of colon Medical Ce nter (procedure) [code = 065310916] Future Scheduled 1951 Screening for malignant [facility] Test 00:00:00 neoplasm of colon Medical Ce nter (procedure) [code = 034475078] Future Scheduled 1950 Sigmoidoscopy [code = [facility]:00 Sigmoidoscopy] [facility] Future Scheduled 1951 Screening for malignant [facility] Test 00:00:00 neoplasm of colon Medical Ce nter (procedure) [code = 710909880] Future Scheduled 1951 Screening for malignant [facility] Test 00:00:00 neoplasm of colon Medical Ce nter (procedure) [code = 739646703] Future Scheduled 1951 Screening for malignant [facility] 00:00:00 neoplasm of breast Medical C enter (procedure) [code = 068488469] Future Scheduled 1950 Sigmoidoscopy [code = [facility]] [facility] Future Scheduled 1951 CT Colonography (combo) [facility] 00:00:00 [code = CT Colonography [facility] (combo)] Future Scheduled 1951 Screening for malignant [facility] 00:00:00 neoplasm of colon Medical Ce nter (procedure) [code = 811485044] Future Scheduled 1951 Screening for malignant [facility] 00:00:00 neoplasm of colon Medical Ce nter (procedure) [code = 574855160] Future Scheduled 1951 DXA SCAN [code = DXA [facility] 00:00:00 SCAN] [facility] Future Scheduled 1951 Screening for malignant [facility] 00:00:00 neoplasm of colon Medical Ce nter (procedure) [code = 443353928] Future Scheduled 1951 Screening for malignant [facility] 00:00:00 neoplasm of colon Medical Ce nter (procedure) [code = 255140035] Future Scheduled 1951 Sigmoidoscopy [facility]code = [facility]] [facility] Future Scheduled 1951 Screening for malignant [facility] 00:00:00 neoplasm of breast Medical C enter (procedure) [code = 946520746] Future Scheduled 1951 CT Colonography (combo) [facility] 00:00:00 [code = CT Colonography [facility] (combo)] Future Scheduled 1951 Screening for malignant [facility] 00:00:00 neoplasm of colon Medical Ce nter (procedure) [code = 119945302] Future Scheduled 1951 Screening for malignant [facility] 00:00:00 neoplasm of colon Medical Ce nter (procedure) [code = 941305814] Future Scheduled 1951 DXA SCAN [code = DXA [facility] 00:00:00 SCAN] [facility] Future Scheduled 1951 Screening for malignant [facility] 00:00:00 neoplasm of colon Medical Ce nter (procedure) [code = 180938538] Future Scheduled 1951 Screening for malignant [facility] 00:00:00 neoplasm of colon Medical Ce nter (procedure) [code = 006551404] Future Scheduled 1951 Sigmoidoscopy [facility]code = [facility]] [facility] Future Scheduled 1951 Screening for malignant [facility] 00:00:00 neoplasm of breast Medical C enter (procedure) [code = 048890793] Future Scheduled 1951 CT Colonography (combo) [facility] 00:00:00 [code = CT Colonography [facility] (combo)] Future Scheduled 1951 Screening for malignant [facility] 00:00:00 neoplasm of colon Medical Ce nter (procedure) [code = 743369006] Future Scheduled 1951 Screening for malignant [facility] 00:00:00 neoplasm of colon Medical Ce nter (procedure) [code = 709295083] Future Scheduled 1951 DXA SCAN [code = DXA [facility] 00:00:00 SCAN] [facility] Future Scheduled 1951 Screening for malignant [facility] 00:00:00 neoplasm of colon Medical Ce nter (procedure) [code = 414930341] Future Scheduled 1951 Screening for malignant [facility] 00:00:00 neoplasm of colon Medical Ce nter (procedure) [code = 103316236] Future Scheduled 1951 Sigmoidoscopy [facility]code [facility]oidoscopy] [facility] Future Scheduled 1951 Screening for malignant [facility] 00:00:00 neoplasm of breast Medical C enter (procedure) [code = 316597581] Future Scheduled 1951 CT Colonography (combo) [facility] 00:00:00 [code = CT Colonography [facility] (combo)] Future Scheduled 1951 Screening for malignant [facility] 00:00:00 neoplasm of colon Medical Ce nter (procedure) [code = 903906219] Future Scheduled 1951 Screening for malignant [facility] 00:00:00 neoplasm of colon Medical Ce nter (procedure) [code = 255218386] Future Scheduled 1951 DXA SCAN [code = DXA [facility] 00:00:00 SCAN] [facility] Future Scheduled 1951 Screening for malignant [facility] 00:00:00 neoplasm of colon Medical Ce nter (procedure) [code = 017093038] Future Scheduled 1951 Screening for malignant [facility] 00:00:00 neoplasm of colon Medical Ce nter (procedure) [code = 146175841] Future Scheduled 1951 Sigmoidoscopy [facility]code = [facility]oscopy] [facility] Future Scheduled 1951 Screening for malignant [facility] 00:00:00 neoplasm of breast Medical C enter (procedure) [code = 762002179] Future Scheduled 1951 CT Colonography (combo) [facility] 00:00:00 [code = CT Colonography [facility] (combo)] Future Scheduled 1951 Screening for malignant [facility] 00:00:00 neoplasm of colon Medical Ce nter (procedure) [code = 410150795] Future Scheduled 1951 Screening for malignant [facility] 00:00:00 neoplasm of colon Medical Ce nter (procedure) [code = 764837518] Future Scheduled 1951 Screening for malignant [facility] 00:00:00 neoplasm of breast Medical C enter (procedure) [code = 252786899] Future Scheduled 1951 CT Colonography (combo) [facility] 00:00:00 [code = CT Colonography [facility] (combo)] Future Scheduled 1951 Screening for malignant [facility] 00:00:00 neoplasm of colon Medical Ce nter (procedure) [code = 907052453] Future Scheduled 1951 Screening for malignant [facility] 00:00:00 neoplasm of colon Medical Ce nter (procedure) [code = 403076185] Future Scheduled 1951 DXA SCAN [code = DXA [facility] 00:00:00 SCAN] [facility] Center Future Scheduled 1951 Screening for malignant [facility] 00:00:00 neoplasm of colon Medical Ce nter (procedure) [code = 034693921] Future Scheduled 1951 Screening for malignant [facility] 00:00:00 neoplasm of colon Medical Ce nter (procedure) [code = 827791710] Future Scheduled 1951 Sigmoidoscopy [code = [facility] S[facility]] [facility] Future Scheduled 1951 DXA SCAN [code = DXA [facility] 00:00:00 SCAN] [facility] Encounters Start End Encounter Admission Attending Care Care Encounter Source Date/Time Date/Time Type Type Clinicians Facility Department ID 2023-02-28 Outpatient Zamudio, STLMLC STLMLC [id number] Common 15:54:00 Mike [id number] [facility] 2023-02-08 Outpatient Zamudio, STLMLC STLMLC [id number] Common 11:34:00 Mike [id number] [facility] 2022-06-22 Outpatient Zamudio, STLMLC STLMLC [id number] Common 14:44:00 Mike [id number] [facility] 2021-10-26 Outpatient Zamudio, STLMLC STLMLC [id number] Common 16:11:00 Mike [facility] 2021-09-14 Outpatient Zamudio, STLMLC STLMLC [id number] Common 11:09:01 Mike [facility] 2021-09-09 Outpatient Zamudio, STLMLC STLMLC [id number] Common 14:05:44 Mike [id number] [facility] 2021-09-09 Outpatient Zamudio, STLMLC STLMLC [id number] Common 12:38:12 Mike [id number] [facility] 2021-09-09 Outpatient Zamudio, STLMLC STLMLC [id number] Common 12:37:33 Mike [id number] [facility] 2021-09-09 Outpatient Zamudio, [facility] [id number] Common 12:36:58 Mike [id number] [facility] 2021-09-09 Outpatient Zamudio, STLMLC [facility] [id number] Common 12:35:28 Mike [id number] [facility] 2021-09-09 Outpatient Zamudio, STLMLC [facility] [id number] Common 12:28:00 Mike [id number] [facility] 2021-09-09 Outpatient Zamudio, STLMLC [facility] [id number] Common 12:20:04 Mike [id number] [facility] 2021-09-09 Outpatient Zamudio, STLMLC [facility] [id number] Common 11:44:09 Mike [id number] [facility] 2021-09-09 Outpatient Zamudio, ST[facility] [id number] Common 11:42:44 Mike [id number] [facility] 2021-09-09 [facility] [id number] Common 11:42:38 Mike [id number] [facility] 2021-09-09 Outpatient Zamudio, [facility] [id number] Common 11:31:37 Mike [id number] [facility] 2021-09-09 Outpatient [facility]ud[facility], [facility] [id number] Common 11:26:53 Mike [id number] [facility] 2021-09-09 [facility] [id number] Common 11:18:02 Mike [id number] [facility] 2021-06-15 Emergency [facility] [id number] Univers 20:59:37 [facility] 2023-05-02 2023-05-02 Outpatient R [facility] [id number] Univers 10:00:00 10:00:[facility] 2022-09-09 2022-09-11 Hospital Link, [facility] [id number] [facility] 09:48:00 14:49:[address] [facility] 2022-09-09 2022-09-11 Outpatient EL LINK, SLE Surgery [id number] SLE 09:48:00 14:49:00 [facility] 2022-09-09 2022-09-11 [facility] EL Link, [facility] [id number] 09:48:00 14:49:[address] [facility] 2022-09-09 2022-09-09 [facility] [id number] 13:29:00 18:12:00 Event Radhika [facility] 2022-09-09 2022-09-09 [facility] [id number] 13:29:00 18:12:00 Event Radhika [facility] 2022-09-09 2022-09-09 Surgery Link, [facility] [id number] 12:00:00 15:30:00 [facility] 2022-09-09 2022-09-09 Surgery Link, [facility] [id number] 12:00:00 15:30:00 [facility] 2022-09-09 2022-09-09 Orders [facility] [id number] 00:00:00 00:00:00 Only [facility] 2022-09-09 2022-09-09 Orders [facility] [id number] 00:00:00 00:00:00 Only [facility] 2022-09-09 2022-09-09 Travel [facility] [id number] [facility] 00:[facility]00 00:00:00 [facility] 2022-09-09 2022-09-09 Travel [facility] [id number] [facility] 00:[facility]:00 00:00:00 [facility] 2022-08-17 2022-08-17 Outpatient R RADIOLOGY [facility] [id number] Univers 08:00:20 23:59:00 ity [facility] 2022-08-17 2022-08-17 Hospital Radiology [facility] 1.2.840.114 [id number] Univers 08:00:00 23:59:00 Encounter [place] 350.1.13.10 ity of [place] 4.2.7.2.686 [facility] [id number] [place] [id number] [place] 2022-08-12 2022-08-12 Outpatient R RADIOLOGY [facility] [id number] Univers 00:00:00 00:00:00 ity of [facility] 2022-08-02 2022-08-02 (TEL) STLMLC STLMLC [id number] Co mmon 00:00:00 00:00:00 [facility] 2022-07-26 2022-07-26 (TEL) STLMLC STLMLC [id number] Co mmon 00:00:00 00:00:00 [facility] 2022-07-16 2022-07-16 (TEL) STLMLC STLMLC [id number] Co mmon 00:00:00 00:00:00 [facility] 2022-06-30 2022-06-30 (TEL) STLMLC STLMLC [id number] Co mmon 00:00:00 00:00:00 [facility] 2022-06-24 2022-06-24 OFFICE STLMLC STLMLC [id number] Co mmon 00:00:00 00:00:00 VISIT [facility] LEVEL 4 [facility] 2022-06-16 2022-06-16 Outpatient R RADIOLOGY [facility] [id number] Univers 16:18:09 23:59:00 ity of [facility] 2022-06-16 2022-06-16 Hospital Radiology [facility] 1.2.840.114 [id number] Univers 16:18:09 23:59:00 Encounter [place] 350.1.13.10 ity [facility] 4.2.7.2.686 [facility] [id number] [place] 542474 [place] 2022-06-16 2022-06-16 Orders Doctor SALCEDO 1.2.840.114 [id number] Univers 00:00:00 00:00:00 Only Unassigned, GLO 350.1.13.10 ity of [place] [facility] 4.2.7.2.686 Reggie as [id number] [facility] [address] 2022-06-04 2022-06-04 OFFICE STLMLC STLMLC [id number] Co mmon 00:00:00 00:00:00 VISIT NEW Spir it PT LEVEL 3 - [facility] 2022-06-01 2022-06-01 (TEL) STLMLC STLMLC [id number] Co mmon 00:00:00 00:00:00 [facility] 2022-05-25 2022-05-25 Outpatient R RADIOLOGY [facility] [id number] Univers 00:00:00 00:00:00 ity of [facility] 2022-05-15 2022-05-15 Outpatient R RADIOLOGY [facility] [id number] Univers 09:04:27 23:59:00 ity of [facility] 2022-05-15 2022-05-15 [facility] Radiology [facility] 1.2.840.114 [id number] Univers 09:04:27 23:59:00 Encounter [place] 350.1.13.10 [place] [id number] [address] 2022-05-07 2022-05-07 [facility] Radiology [facility] 1.2.840.114 [id number] Univers 09:00:00 23:59:00 Encounter [place] 350.1.13.10 [place] [id number] [address] 2022-05-07 2022-05-07 Outpatient R RADIOLOGY [facility] [id number] Univers 00:00:00 23:59:00 ity of [facility] 2022-04-30 2022-04-30 Outpatient R RADIOLOGY [facility] [id number] Univers 00:00:00 00:00:00 ity of [facility] 2022-04-21 2022-04-21 (TEL) STLMLC STLMLC [id number] Co mmon 00:00:00 00:00:00 [facility] 2022-03-23 2022-03-23 [facility] [id number] Co mmon 00:00:00 00:00:00 VISIT Spirit ESTAB PT - CHI LEVEL 4 [facility] 2022-03-22 2022-03-22 (TEL) STLMLC STLMLC [id number] Co mmon 00:00:00 00:00:00 Spirit - [facility] 2022-03-17 2022-03-17 (TEL) STLMLC STLMLC [id number] Co mmon 00:00:00 00:00:00 Spirit [facility] 2022-03-09 2022-03-09 Letter DENISSE Silva 1.2.840.114 [id number] Univers 00:00:00 00:00:00 (Out) Be CODY 350.1.13.10 i ty [facility] 4.2.7.2.686 Reggie as [id number] [address] 2022-03-08 2022-03-08 Laboratory Only, Ang Db Test [facility] 1.2.8 40.114 [id number] Univers 09:15:00 09:30:00 Only Janice Fowler [facility] 350.1.13.10 ity of [place] 4.2.7.2.686 Reggie as FABIO?BLEA [id number] [address] MEDICAL OFFICE BUILDING 2022-03-08 2022-03-08 Outpatient R MALCOLM [facility] [id number] Univers 09:15:00 09:15:00 JANICE teague o f [facility] 2022-03-08 2022-03-08 Ivis Humphreys [facility] 1.2.840.114 [id number] Univers 00:00:00 00:00:00 (Out) [facility] 350.1.13.10 it y of [place] 4.2.7.2.686 Reggie as FABIO?BLEA [id number] [address] MEDICAL OFFICE BUILDING 2022-03-08 2022-03-08 OL DIG E/M [facility] [id number] Common 00:00:00 00:00:00 [facility] 11-20 Spir it MIN - [facility] 2022-03-08 2022-03-08 (TEL) STLMLC STLMLC [id number] Co mmon 00:00:00 00:00:00 [facility] 2021-11-20 2021-11-20 (TEL) STLMLC STLMLC [id number] Co mmon 00:00:00 00:00:00 [facility] 2021-11-18 2021-11-18 Outpatient R RADIOLOGY [facility] [id number] Univers 15:31:25 23:59:00 ity of [facility] 2021-11-18 2021-11-18 Hospital Radiology [facility] 1.2.840.114 [id number] Univers 15:18:50 23:59:00 Encounter [place] 350.1.13.10 [facility] [place] [id number] [address] 2021-11-18 2021-11-18 Hospital Radiology [facility] 1.2.840.114 [id number] Univers 15:00:00 15:17:00 Encounter [place] 350.1.13.10 ity [facility] [place] [id number] [facility] [address] [place] 2021-11-04 2021-11-04 Telephone Aspen [facility] 1.2.840.114 [id number] Univers 00:00:00 00:00:00 Saleem [facility]IS[facility] 350.1.13.10 [place] [id number] Al dical LEONOR [address] [facility] 2021-11-03 2021-11-03 Electric Mule Operator Lab, Ang - Db [facility] 1.2.840.1 14 [id number] Univers 14:30:00 14:45:00 Visit Saleem Louise [facility] 350.1.13. 10 ity of [place] 4.2.7.2.686 Reggie as FABIO?BLEA [id number] Me dical KNEY [address] [place] MEDICAL OFFICE BUILDING 2021-11-03 2021-11-03 Outpatient R SALEEM LOUISE [facility] [id number] Univers 14:30:00 14:30:00 SALEEM LOUISE [facility] 2021-11-03 2021-11-03 Office Aspen [facility] 1.2.840.114 [id number] Univers 13:40:00 14:21:43 Visit Saleem Powers [facility] 350.1.13.10 ity of [place] 4.2.7.2.686 Reggie as FABIO?BLEA [id number] [address] MEDICAL OFFICE [facility] 2021-11-03 2021-11-03 Outpatient R SALEEM LOUISE [facility] [id number] Univers 13:40:00 14:21:43 SALEEM LOUISE magdabrenda [facility] 2021-11-03 2021-11-03 Orders Doctor DENISSE 1.2.840.114 [id number] Univers 00:00:00 00:00:00 Only Unassigned, GLO 350.1.13.10 ity of [place] [facility] 4.2.7.2.686 Reggie as [id number] [address] 2021-11-03 2021-11-03 [facility] 1.2.840.114 [id number] Univers 00:00:00 00:00:00 Saleem [facility] 350.1.13.10 ity of [place] 4.2.7.2.686 Reggie as FABIO?BLEA [id number] [address] OFFICE [facility] 2021-10-27 2021-10-27 Orders Doctor DENISSE 1.2.840.114 [id number] Univers 00:00:00 00:00:00 Only Unassigned, GLO 350.1.13.10 ity of [place] [facility] 4.2.7.2.686 Reggie as [id number] [address] 2021-10-26 2021-10-26 OFFICE [facility] [id number] Co mmon 00:00:00 00:00:00 VISIT Vadim SAUCEDA PT - CHI LEVEL 4 [facility] 2021-10-16 2021-10-16 Emergency X SINGER [facility] ERT [id number] Univers 13:30:00 17:54:00 RENAN teague [facility] 2021-10-162021-10-16 Emergency Monsalve, [facility] 1.2.443.355 [id number] Univers 13:30:00 17:54:00 Renan LAWRENCE 350.1.13.10 i [place] 4.2.7.2.686 [facility] [id number] [facility] [address] 2021-09-28 2021-09-28 OFFICE STLMLC STLMLC [id number] Co mmon 00:00:00 00:00:00 VISIT Spirit ESTAB PT - CHI LEVEL 4 [facility] 2021-09-22 2021-09-22 (TEL) STLMLC STLMLC [id number] Co mmon 00:00:00 00:00:00 Spirit - [facility] 2021-09-17 2021-09-17 (TEL) STLMLC STLMLC [id number] Co mmon 00:00:00 00:00:00 Spirit - [facility] 2021-09-15 2021-09-15 OFFICE STLMLC STLMLC [id number] Co mmon 00:00:00 00:00:00 VISIT EST Spir it PT LEVEL 3 - [facility] 2021-09-15 2021-09-15 SUB ANNUAL STLMLC STLMLC [id number] Common 00:00:00 00:00:00 MCR Spirit WELLNESS - CHI VISIT [facility] 2021-09-14 2021-09-14 (TEL) STLMLC STLMLC [id number] Co mmon 00:00:00 00:00:00 Spirit - [facility] 2021-09-08 2021-09-08 (TEL) STLMLC STLMLC [id number] Co mmon 00:00:00 00:00:00 Spirit - [facility] 2021-07-21 2021-07-21 OFFICE STLMLC STLMLC [id number] Co mmon 00:00:00 00:00:00 VISIT Spirit ESTAB PT - CHI LEVEL 4 [facility] 2021-06-22 2021-06-22 (TEL) STLMLC STLMLC [id number] Co mmon 00:00:00 00:00:00 Spirit - [facility] 2021-04-21 2021-04-21 Emergency Mary, [facility] 1.2.840.114 [id number] Univers 17:57:00 20:45:00 Willie Lawrence 350.1.13.10 i ty [facility] 4.2.7.2.686 [facility] [id number] [facility] [address] 2021-04-21 2021-04-21 Orders Doctor DENISSE 1.2.840.114 [id number] Univers 00:00:00 00:00:00 Only Unassigned, GLO 350.1.13.10 ity of [facility] 4.2.7.2.686 [facility] [id number] [facility] [address] 2021-03-11 2021-03-11 Outpatient STLMLC STLMLC [id number] Common 00:00:00 00:00:00 [facility] 2021-03-04 2021-03-04 Outpatient STLMLC STLMLC [id number] Common 00:00:00 00:00:00 [facility] 2020-11-28 2020-11-28 Outpatient STLMLC STLMLC [id number] Common 00:00:00 00:00:00 [facility] 2020-11-24 2020-11-24 Outpatient STLMLC STLMLC [id number] Common 00:00:00 00:00:00 [facility] 2020-10-21 2020-10-21 Outpatient STLMLC STLMLC [id number] Common 00:00:00 00:00:00 [facility] 2020-10-07 2020-10-07 Outpatient STLMLC STLMLC [id number] Common 00:00:00 00:00:00 [facility] 2020-10-06 2020-10-06 Outpatient STLMLC STLMLC [id number] Common 00:00:00 00:00:00 [facility] 2020-09-16 2020-09-16 Outpatient STLMLC STLMLC [id number] Common 00:00:00 00:00:00 [facility] 2020-09-12 2020-09-12 Outpatient STLMLC STLMLC [id number] Common 00:00:00 00:00:00 [facility] 2020-08-26 2020-08-26 Outpatient STLMLC STLMLC [id number] Common 00:00:00 00:00:00 [facility] 2020-08-04 2020-08-04 Outpatient STLMLC STLMLC [id number] Common 00:00:00 00:00:00 [facility] 2020-07-30 2020-07-30 Outpatient STLMLC STLMLC [id number] Common 00:00:00 00:00:00 [facility] 2020-07-01 2020-07-01 Outpatient STLMLC STLMLC [id number] Common 00:00:00 00:00:00 [facility] 2020-06-02 2020-06-02 Outpatient STLMLC STLMLC [id number] Common 00:00:00 00:00:00 [facility] 2020-05-29 2020-05-29 Outpatient STLMLC STLMLC [id number] Common 00:00:00 00:00:00 [facility] 2020-05-28 2020-05-28 Outpatient STLMLC STLMLC [id number] Common 00:00:00 00:00:00 [facility] 2020-05-27 2020-05-27 Outpatient STLMLC STLMLC [id number] Common 00:00:00 00:00:00 [facility] 2020-04-22 2020-04-22 Outpatient [facility] [id number] Common 11:39:00 11:39:00 [place] [address] Spir [address] Drive [facility] 2020-04-15 2020-04-15 Outpatient [facility] [id number] Common 15:20:00 15:20:00 [place] [address] Spir [address] Drive [facility] 2020-04-07 2020-04-07 Outpatient [facility] [id number] Common 07:48:00 07:48:00 [place] [address] Spir [address] Drive [facility] 2020-04-03 2020-04-03 Laboratory Lab, [facility] 1.2.840.114 [id number] 15:59:39 16:19:39 Only [facility] 350.1.13.10 [place] 4.2.7.2.686 [facility] [phone] nal [address] 2020-04-03 2020-04-03 Outpatient R [facility] [id number] Univers 16:00:00 16:00:00 ity [facility] 2020-04-03 2020-04-03 Outpatient [facility] [id number] Common 11:15:00 11:15:00 [place] [address] Spir [address] Drive [facility] 2020-03-07 2020-03-07 Outpatient [facility] [id number] Common 08:15:00 08:15:00 [place] [address] Spir [address] Drive [facility] 2020-02-27 2020-02-27 Outpatient [facility] [id number] Common 11:04:00 11:04:00 [place] [address] Spir [address] Drive [facility] 2020-02-25 2020-02-25 Outpatient [facility] [id number] Common 10:39:00 10:39:00 [place] [address] Spir [address] Drive [facility] 2020-01-30 2020-01-30 Outpatient [facility] [id number] Common 15:45:00 15:45:00 [place] [address] Spir [address] Drive [facility] 2020-01-30 2020-01-30 Outpatient [facility] [id number] Common 15:45:00 15:45:00 [place] [address] Spir [address] Drive [facility] 2020-01-09 2020-01-09 Outpatient [facility] [id number] Common 11:17:00 11:17:00 [place] [address] Spir [address] Drive [facility] 2019-11-27 2019-11-27 Outpatient [facility] [id number] Common 14:00:00 14:00:00 [place] [address] Spir [address] Drive [facility] 2019-05-22 2019-05-22 Outpatient [facility] [id number] Common 16:00:00 16:00:[address] [facility] 2019-05-08 2019-05-08 [id number] Common 16:15:00 16:15:[address] [facility] 2019-03-20 2019-03-20 [id number] Common 08:20:00 08:20:[address] [facility] 2019-02-13 2019-02-13 [facility] [id number] Common 16:15:00 16:15:[address] [facility] 2018-11-24 2018-11-24 [facility] 25 [id number] Common 16:23:00 16:23:[address] [facility] 2018-11-13 2018-11-13 [facility] 24 [id number] Common 16:30:00 16:30:[address] [facility] 2018-09-28 2018-09-28 [facility] 24 [id number] Common 15:00:00 15:00:[address] [facility] Results Test Description Test Time Test Comments Results Result Comments Source Tissue Exam 2022-09-28 07:24:40 Test Item Value Reference Range Interpretation Comme nts Case Report (test code = 104) Surgical Pathology Report Case: [id number] Authorizing Provider: Stuart Wylie MD Collected: 09/09/2022 05:13 PM Ordering Location: [facility] Received: 09/10/2022 11:48 AM SERVICES Pathologist: Ada Locke MD Specimen: Mass, Left renal mass DIAGNOSIS (test code = 3220) f7jdgQKgKICzl7pnZKWcxEPrPwPbYiAaTdJhUw pc dWMxIHtccnRmMVxlcGljOTYwMlxhbnNpXHNwbHRw C2ZpraehFJjlMN2sLX8wcSudyGJwtQYhUKSmPxQd g8xqy344xSYzv1iaTEEPwsrmePj9aEiaH64vi7X8 IxjfG74svSXxROV2DESlMNHllWPcGGIsUSA3YHDv eYLnU5xyMDUiDU3axiwuZBzeXAmvOFEetBQ5CSVs lFQpF3YhPZZoOBnnQLAiaba8XsOhKu2fwQXbpDof DHajCJLtIXZsLBwzQXUqHuApD3sMMoKGXGDNWYQS BKUGECPGKFCZCO1APOsFNRSNW75RUkraAYNfzCSc JE4lS7zKMDMpA6WXBYGFVZ5MRSRAYWcDEMNERpBS Ih2SEDxwE2dDL1uHMIBcA9TSZMPgN2adTSXijMNh VB5nCGHFO5JbD7rcARdiMJ64MUPXWMsVGiCGOHAR EEJKFc3PQpCSEH8CGlEMQ79gRKPbzqc7JAAxHCUD SM1LCtNMJB4GFVMCHPRNPLfHMT7MEZylMDEvdENe VJ9nJw7pA1EEL34KLCOLOVSnUsSHTOAADBAzCYLO VmHIMtuHALyjPSHwwFDtGG1rOh8bEgjNUtVHCVQr SwURDINTNYTjJMLVQeOVYtbOUYxqPGRajKNwIG7s Wu8fUScZXKwHUbATV6UZINKcTQ4RAFVTJ50vWLTM BbLRAnzGKZyyFNUecDKmFW0nCCSUQ3QmPEPUXERu GQxVGYIFYjENF9aLQEDRZPEGEnfKY2BXHZ9JBkbW LugoFAUrsNRqHW6pQ2QIHrRwKo8PHL9LP5UDRGQX VUUhF5qAAiVRRJuVDWciEhPFMVNHA6vEXy4ITSBn Y1dHXVKFTJlOJKGepu52WIZ1DmWsl9Z1DTU8EGIw WDVev2ghNTMidLOgAtLfQsSeMxPbOtpxgVPnRNBs NmEvn3scw946wKEiv2xtWSEnBaJ8hELhWQXtdJCw L286MTDdIRbrv6ins0SoVJIiuIVlg8X5SJQAxemz aDf9sFdzS57ty0L8ZibqE4irVXUjRPQtO7EoYT4h IZKvAwr3TNL0MEH6POMzSQJcM6TjDA7vXRGgnQEy PDh5f6pynZuvRINtRDE4q6clFYafqfThIW1qqf0m gDs2k8czfqMoAIFkPZUmhKIMOFMbB5CqaIheQs0i cWt3oRieJaesFMM5Tzd4SZ7fgw52vvy2mPlpXKQg lpowZnB6BJneVNQzulbtQKe1KNiwLOXkxCF6OQRp oKTiD2FlNSDjEE7apkf9KUU2FDedEGBeOiH1KVDt wOJgLEEizBfjSWwmn693CDX3ZxJoRZ2wF5Kqb3M4 hC3uwUWvPDQbxPSxJpPbTSKbvm3zbNXdDAqsw4Rj YGX5svN1gBGvoDTfYYRcAkA6UIzqQI1ckc89ZROu CXB7fj3byXPdlXskzkGfbDRsERfkQ1OjWGFes758 FEGhU4CqTEAja9O7lcXuGfLbUEKquOD6ubR0ZBLh PP1oihbde6qgSZggEClyNKBfxyF9rvF0ZIOpfJKg V4SgzG4bBVGeIP4ooxmzw1okAEZ2OCulUEYyAUI0 OoYeFKJuk6Lason8BnAkw1AmfKHrIUgpP58ky865 TFFcqtVkS3ziwFXjecjiaKHuqtokJFvumqE4DCDw TTaegdxyZKUvITrpU4klDyZwCCZusJxyOXpzy3Aa CRPzZDQvLlBnvKBdUGNrRhm8UTSvcGZcJTOrAfCe V6xhzkphQdNSHLKbb4pjY9alsDAYfEMoY6TwOPjo wwQiYAcbAFnnTvFvJEc4YX96RcQfXNZtft02 SYNOPTIC REPORT (test code = 5765) KIDNEY: NephrectomyKIDNEY: NEPHR ECTOMY, PARTIAL OR RADICAL - All Pksxwbryc1dt Edition - Protocol posted: 02/11/2021 SPECIMEN Procedure: [...] glomeruli CPT Code(s) (test code = 3357) o0paoTQqSLHrpKM7MtTyMIOyh6znx9WeeHWj cGFy AYkinKOheqPcwq67dJO8qW21NN8gFUOrPpT0AFLu zqH0Alu8JJTbYWPeuVYdS920a0cxu1jgszIamPH1 xMalYKQuyjqwIhG6GKmuQMWsoxmfOQr3LBdxPVJq qNN5JRFthKRjV0EhXQNvHM1efuq5MZP4RCrmFKMj AfF9CEUblJQeXLWtxKpfBBden985WKL9KuNpARTa dtZuyBkesL6tJlAoSRM8CUEaZ3ygROIxIHpdAWTb cGFyfQ== CLINICAL HISTORY (test code = 3356) d3exwDEuXFIodKA0HlFvNLAcn9yjx3M sdHBncGFy XBgmwRUfjvBazi42pHJ3pW05MZ5tFNIxNdA8HFFp qpH7Qnr8ZOCkXMEhsKDtB204a6znv2xjmsThbEV6 yQixOHDqycprQwD3SVhiQLQipbwnOGb3XPnlMJXm aDO9NWSpvDCzA7JwMSVnHD0xgwl3SDA6WEipIWYc HoH0JPVxzZPuKJRqbZqkYVyxf512FZJ1BnEcXBCs lqLeuBanjV0dZiVnYCCCUS1fpOJeHHSsXFNbmk5= SPECIMEN SOURCE (test code = 3377) x4uhrCJyPCUtlIL1WpVoRQJfp1piz3Ld dHBncGFy BEaqpCEhywBbzy98lBQ5nN28DO8wHOIpEmC5RRGm hhP6Kir0BWXfJLRbmPWhB837a5jrj1nhcvQkxTC9 eQfkZTFblowsUzY5AUhuMBVtqicgRTr1FYmhLJOt vHS5WXRzlJQkP7YdUPWdXI2rdun9POK9HHqvCMTp OjL9OFAesRReGODyoXveLBsxz223NWF8CuPiFPLn cbFrnUdnsG2nOzGvBEOSNmSzJ0ulmjN0BMVlIXP8 LCBtYXNzXHBhcn0= GROSS DESCRIPTION (test code = g4fpbTVoAYZruCV1SiYgUOIdv5kjc0KjxRHs cGFy [id number]) [file] nKIhWOF6KU2itZtyKAW0 MICROSCOPIC DESCRIPTION (test code = b3mvjDWrIGXflGW4XlZzHMEsa7rdr2 BsdHBncGFy 3371) LHipcZCrywZakn44jVA9vV38FM9oOKPqLkQ4EBWt hzN5Hck7UUOcSJMulOLtG535p2qsl7cbmvIowCU4 vJyiIPZgwfhcPcW0XVjpFBXmywaiUGi6IKicHCUv nSM3OWIhxETzW2AiRHBeML7dnkn6THC1FIckCJJq ZhB1UHBgrOAtBQHogGseDDuwd451FHM0BfQqHJGj slWmjBxwrJ3oSqVhOOHPZzP1GOiqklGqEGYjs3Rv LPOcx4u3lVZsbPLjz0AleLN3UDHke271vl9bGZCe wrMuhDjwTGK8JWrpFQkyXUwlmGLpwILclCWpNUEy NB8vE1U7qDAdUzWMwXa9uDYlIDMnWPEluXCsc7Ja yFeqRWXvuvFwN7n6oUKcJT8xkueloiA8KJCuBWQ6 LG7wifImDCehDUBtOSNykQDqYUGsgjYmtJiiXHNy gwkhTs4aINhpwXMaAuT0lzE7aEidWN7lihrtqw7l XHBhcn0= SPECIAL STUDIES (test code = 3376) e0rmwACuVHCzt5whGMVehQCxIkWhJrLv ZnRuYmpc zDBgCSpgdtJzZNnif9JqR6KwKeNrMJoasgQbKUVd AzyypwviOYEgEQB5vvUmDGHcXZnfRGUjGFwePj4k nTYikNelZdNtNSHph1obnrFZwzrbbHq6h2uuFDIr JnW7iGMsWNtfH8czqxYofFFaL1AxbFZizYb5p1un YoLlIfF4oSSyGTxvV3plntWowLOoUKKyFXh2aK67 IAPepK1fxAIrZNsxgfGxVaG8PJwuVDZaKoX0SCOl rOMdMSWbU2jzZTJeERolNFHxUMbccWQjKRA4tAvw e1Q9oMNtwLWrpJqmRqBuNbThOhQOp2YyLOv9vLtc M7OgQLQoCuT2mJYfNJGzSZmfZDDdDRYafmH3pGtk xmCli99tdFLcQYKwLSLjZuIxoCjtRSLxDKVIl5Ik nBisOST9iYn3lGwvEvmeFTK2Oui6CR6oei68svt5 gDizKSLunziwVuP5WXxfTYFwyeqyPXa4DHanMEOb nBV7HJDidHKtD1DtXQHiXA6ughf0ICL8TDiwORXc VjU1UNMxdBStPELudTltGVkvx781CRX5CtLnYD1f I1Xkh1A9mW9msZWjDIYjdUSjVaJuDRFfae6zxSXs HZaup5PsIGJ0zdI7yCIglSDiCTGaOV36Pnccb5Wn Pkpqz3WoZ77seML5XPsgb4fqIO0mQjA7fyEqNTdx f6fovS9xJoO4KQkkWW9kEJ0wHYAbcF9pptnmHROe TdBzkzdxFQKmaAkeekKdVd6qkYbcAVU9EEjbV1gi uB7mVoP0AJxyH1qamM0pFHs1NVjzyZH9ICXraD1f VB2yugryy3tyMNefBMgsSBSgdyA4hqU0STUbaAPj V3QouD1mLUKtEE5aumlfx8oaGOQ4YMfrPICaFIO6 HvKsWNHox4Vluxx9MmEke7BbuIKgNZdkR23po714 LXTnnbSaU0xnbWIzyrrizDDvhbeqTRqmirK5BMUh XHBsYWluXGYxXGZzMjJcbGFuZzEwMzNcaGljaFxm JTzqMtNfRYMhIVzrT5imQqBjN7BvCATfZwVhOHou SXbhjLFibUUldNK9nR0fRH2pBNZtlNSkZ9IbIZDl guEnfCMwRTX8mNKprXFoRO0pZDbydQBuf2mbj8Gs I2cedKbvlMJ1HT8sVZTnOFEiLCtfk6ZleJ2jVjse uAVjuiblTCxylfXrDDoafoqpSGQxTEneJ1ciLtVy ATExcVnvOGgrm5FkSQDeKWRaDxaqbeVjGPw3omYx EUUpwfyoQQSwyLmxwM1pKeTgXyJjWagiZP0bLRKj W8fnzONqCZPeBOHcF1ecNpWsuQ6sdUofIMsxQjKc AmNlWaDLz723zt5hRAVakOUebzSXdKKjvO2rKJeb YHmdIUrwfPPbIOkem2tjRWTeg3j4bUFdHNZhcdXm l1wnPKwovqUxBNRfqSHiqGDnVQIqb28gJCjvlOld qEhsCPWyq6RjzBccd9OuWuTfQYtla9CtD63alOBg aVLfzEpmJQUtbjGkVZNew69fq0hdQZZqTqJ0jRFt pMA3vABhlOKcw7ZvbJmkZOIuu9byLRWnlp2xswmf fGTsy1BgqZ6bratdKVvfwNUasdIwOBEvy8a6gUBs QWWpOJQlJEnsdBr4VBXwr085rc5pywM9qTEmCTA9 YWlsYWJsZSBhcmUgZXZhbHVhdGVkXHBsYWluXGYx XGZzMjJcbGFuZzEwMzNcaGljaFxmMVxkYmNoXGYx ZBndN5ygSiCrK8PeCGJwGvIsnVVsO9eqrDTdULRl YWluXGYxXGZzMjJcbGFuZzEwMzNcaGljaFxmMVxk UwRpDSCzEBfaH4gxJdQuS2HuOAUrAoJeEDmfmUIl jefaENnyuiMuDXhkahcgCAPoRSerT4lzUtLdAEXc vWljCFlff3EnBSQgNNNbInbxiuGvHTa6xvIgUDKj zknusXEihqffVPxlijYsXLpgssacSUAoKQhrL1fi [file] MkfnNTN9zQ== Gross assessment was performed at (test [facility] enter, code = 2777) Department of Pathology, [address] [place] [id number], Technical component was performed at [facility] er, (test code = 2778) Department of Pathology, [address] [place] [id number], Professional component was performed at [facility] enter, (test code = 2779) Department of Pathology, [address] [place] [id number], [id number] 07:24:40 Test Item Value Reference Range Interpretation Comments Case Report (test code Surgical Pathology = 104) Report Case: [id number] Authorizing Provider: Stuart Wylie MD Collected: 09/09/2022 05:13 PM Ordering Location: [facility] Received: 09/10/2022 11:48 AM SERVICES Pathologist: Ada Locke MD Specimen: Mass, Left renal mass DIAGNOSIS (test code = n1lovPFcEEIth0mjTRSjfQA 3220) uZzEwMzNcZnRuYmpcdWMxIH tccnRmMVxlcGljOTYwMlxhb yMzXTVcjAKhP0VngdmoXOaw LK3fJN6bfZwccZGeyZHwKXW iHhKzy6zhm515nEFpi2pqXM WApczmtNw4yPoyK61kz6H4B egsL38ryWXzHMM6IPViAPWu tZCbMRNyYRY2IYXrrLVgH3r wJYCeLI6jvgiyJJngZJznYT SxgIG5WIWtnWYaM5AgVOIaY IyjBNEwoqx1ZkUmGj3rpWNo eTcyMFxwYXJkXHBsYWluXGZ gLpSmF8gMNpNGIJQIWURJDA IYYRDIDQFIPI9ZLIoCOWGBY 07DFrucLJSlkCTmYU3oX4eE LKYoC8BHEGIHPC2CKLICMXq IQCPKUxOKPn9QGXiqQ6mCO6 yTRWSrD2XCTWShS0zeHJUfj RRiFH2oZZSCM3NuT2dlKXcu YW26QYCMNZkFCvSUMHQAUJG NJe3VFcIUJQ6TGqKNO91rRP Yvttk8QAKnWOYYMX0OLaLKN H3DNGSKDXFHAZlGJO6QIUhs FQEmzYFxXA2jAw8xY0DNE79 NQVRPSUQgRkVBVFVSRVMgSU RFTlRJRklFRFxwYXJcdGFiI N6cAu3tLfyIMhINCRXcAuAV VFVSRVMgSURFTlRJRklFRFx wCQTkxWMaPW1zXb9tNGgTZS aTRoACD1FOTVXaOT8ZZUNIF 04gSURFTlRJRklFRFxwYXJc bLLjSP7bWPCIR7AgSNBWBQW rDLjYMNURXlUGJ6vXYSEQQO NNNnqIX1EQMM4HGysERrbfL YGrhMZxGE9uI4BDDaSpVo4U EU9CE2WRKBONZRDvD2wEQmI VMApHYZzoIjMYHENKS8sIGm 4EFGYrA5mXQYZCTHiWUHFqc n35MMV1PnOur4M1AVX5KBHg UVLkv5hdADJpoGMhWwViAqQ cZnRuYmpcdWMxXGRlZmYwe1 crt558lQDnd1rbVHFyGaK4i SIlFBMheCNvN356UWDePZjo q4get7YpHLFjhKEzb1T9ZPU VgtaxxOb1jQxxQ12wz3T2Kb opI4qdMZHdASDlJ6GdSW4zF YVxGgn4RIC7BMN2CDGqHTEo X2YaYA6jQXShlDTgQIf3z9t gsIwuMZAiBZN5g7mcINymyl HhDP8ysy3bwTu3b2rnogDiE UDdSFEpgABOJSLfZ7LwaJqm Tt4lxOp6dUczCfdrZHC9Vrr 2ZP0uey31lkm0cTolPMNuiz gnRyQ9PVcbYARmmzbtLJq0C RlzLFVwuLH6NQYjxFSaR6Iu JAOuML8yoit2YWU1XDxjNXL kDzN9NEFzpRPyLQLylTniAD btj177DPF8CvZdWL4wT7Sqg 1Z5pI1mzMPtNLQrvGKgWfBw CCGdft7rrRWzNYnva4ZpFLW 4huV0tGBzkNHuVBOiDsK8WY cbQT8bob08LFOjIFR5zp5oj UIzjTpndbZrmQZkJFioF2Tx MMVtz721NDVxZ2ZzCRQak9U 1mrZyJwOlYDBvrCF3zeG0EF MdSE1jranbb4zvGIujPUulE OPzgiS8zyO2RNLmaQRyJ7Fk oA9vFEMeDV5wvdlnh2mrQOW 6LFqxSXDuPRG5TqLbXSLhq8 Ollif4RpIlw3WmcLPtKRytK 64xx418UPTrcnYeF1nkmHQp nmlrzKIpyyabIBawunJ6RSV cKJbvptywVFWqEKpjM8vqGq SyMZGguErnYPzhr6VpHSTeS LSpJqNpnWXlUSPhHrt4VDFo yEIvKYLoPlXlX0cchethMuL LWVMal4pbT9boyILIbPWaW4 QgUGhvbmUgTGluZTogNzEzL Uo8GJ71BaJhTTVxln11 SYNOPTIC REPORT (test KIDNEY: code = 5765) NephrectomyKIDNEY: NEPHRECTOMY, PARTIAL OR RADICAL - All Ptzdepkip0ib Edition - Protocol posted: 02/11/2021 SPECIMEN Procedure: [...] Rare sclerotic glomeruli CPT Code(s) (test code v8rjvCHmLUUbuMD8UfKnPPX = 3357) uc6ftf3BeuJPudDMmZKfhxA HhukAfrb45aDW5nI43MB4aL TRaKmZ8LHYhmkG8Zkl2PXBx HIYlyJVrM217p5svs1vzefI haJN9yDqhXDTecjilBsM5WH lwJAPmpqntIHc9ODqkWNUqi RQ1YDJgcOYnX3JpCGOcXG7t ekn7BIQ3HNrjWAZmEgW8EKH slBJrISSdcAbbDMhsp316II R4OmPmPWCxdiRbmKbwkT9nW hPtKDN4ULJnM0byUOSdBFaq NDJccGFyfQ== CLINICAL HISTORY (test i8eclKSbZKFpqHO4MyQoCLI code = 3356) vc2mgl4NjbKGxiKAmCScgxD GrosKlij74eYT6fW80KC4mR HInJgT1YJZcgwA8Njm9STGp WOFeoYUeJ959b0owf3stusF soCV9kNndMYLfmgvqSdI0MV lsWSCbxjcuUPi6OTovDGNax AR2EDPvbITfI9ZbTLHtDH3i fvl6KMF7USrbIGOkFkU3JMV dqPGbTWVmbSbsEDwsw266TS E5IwVtKYOeguPyfQpmxI4tP fKlXNFDTT3xlEDiKBEbIMTy cn0= SPECIMEN SOURCE (test w5vmnCWnRZMauEZ9ZnKxEVB code = 3377) ex7isd5PjzGWnjSKlZVuopE EueaXysu22fLN7oH76KE4qR QAwMlQ7KPWbhnP9Rrb3VZJx CEHbhPHtK948k4bfr5rdwvX vqOO5lKhrTSScbjueDiF1FY upHUXztnyoTZe1NKyaOPGjc TP9UDKifTNmF1RwNWRzTJ9s emc3DUV5XUdwNJAaPcG8AFU ttNEwVRTevIuaUIstm918BF U5NyWoVIMtdbBbsVebeA8sB tIfCAVHRsCmN8gvopI9WUUo HVN7JPVuBWYlIKNcwk6= GROSS DESCRIPTION w7atqLZpUUUzcSH4FwPmPZW (test code = sv6itf8VqrQNciTWiAZquvH [id number]) DrtqGbhs89jWZ6jI99AC5eK ZRvPeX9TKUtpfQ1Tlz8RRAh WXAcvPYeU030i5qom7xrliU geNZ9TGQcHXPiS7GbHS4sUW EqvZAoV74jkGYeYLH8YAQyB WVogRRwJZCzNSL7GXIalQVz P6diSJEzHI5tkpazEHksSRq oZCJvqGD8VEWcuPHiV1DlJT TxVNsoYEAywmn3HcBmJd8be OCqpHsmVYcnGZHbz8guXNMn hDHsVEL4KVofuTCmLIKoKTY eWPp1QWKyCIljyWZxMB4ioE eqQdipiLuts4PzwSOuDGmaT WGqINZbJEcwUCYqS8BDPKGz WbskQwY5YzEmCRw3VWxzZ3R KAPIxLXHoKyX8ZraeAmP5PU g9FNBQYh0fOwC3UWIaOKq9C EY9GTHyNXqgjXQcSRxgKova PYgkDHDxvSTcPQokweA9LJK qJBehYZMbOdZuXG2uLGScvm 8ftCAkCMYwWuKlKrZgHCr3G PBnSiSdj0tuWRkgUvDrMBRj b7g1fTB5gBNleWL9fHBvpTf dUM4zwUYhEB9YWgPilqUgM4 WuZMZvqKgeHyXkSKo0T9huG kLcoJRrsGThSJ9nzTTvMQUj BNGpJUb1YRXwVEGnXmt2AWt oWXQjNWPyBKV2FSTsS8NxFI sdFJJjVTTrHD02ONtqCs01P FpuXs46ZKwwOmNxO93pqDLs EE9bILIrOKGnkoIuQ6PvjFS beEblmDRoDXDyxlQwvY2hrY V4mUUeRTOji5jgdyodrEIvv xPlPT5pgW43TK6sBWLeuxns TVApfspsJPEvxBJkNG5dFVz xSG8jJTaoYu34MWgwTICdvH HiETKuZ4Yer57zyvrgwoF0X PCzbtVjSYvbpPymV4tcF7Zi o3FdsOXoFQW5RC5kgXnwcbV ps0VtsJv0YZlhtN2ignwuN3 avCV5ww9Mzt6jcM7bfqOLpC CTyjr11yT8qvERhcHH5hUUd s7ZfTEGqoZrlYWRcTZBoHSC ssXLfTImfg6EcX1JhDSBlUU A5CSAoAQN1XKIoXGqvALBeY ZJcbGNkXNW2gQUfehjwcKds QHBcauQhI4c5uRTxCK6slne rteVuhrDcN66kEXTsw5a4gC jlSPBwLOZptHCuDfA4tRPfV 0Zrz0TnKWxjtWUmwfShdbFt lp6gk7l2YQShffSeajCtQHQ vIHRoZSBraWRuZXkuICBUaG TvWWSdokZsxM3esKFmCPJoL D5hvhUqrU4nzrPzpNBhWZUl SN3inGEnGDAnaoDmhQ0mJiN aNJisSK5cf2FwpGVte5FlaA x2qVSyMHIjjPjcGAx3PSasG RDhg5WdbIEpSVJrHBLeEo2z bLhsWGrtJCEkOT7pCRBbQDQ 2ZFwrAQKtGpb6GPhnFUGmQT 5urZgnIUhkeESmU2riVFVgg kMNwJFaihNCEABvyUhzT5Wk cmluZXBocmljIGZhdCBtYXJ llA3raTBdJFOsbxOzSYWjDR HiKTakIYVQLWHtfLZoi9oga Bcbw7BqeRMkTE60AHIjoEZw CDR6VR2buOfzCDP4 MICROSCOPIC q7xtaGLsSYUonDA6CmZxXXX DESCRIPTION (test code jh6ysi5IieUFlnKEpVSsvlW = 3371) OkuuQtth83aNS4uD09MU2oK QOaTsI1KTNdvsF4Cqd6PCEt HGCgeINyM706p2bkq0ldmrK slOC0nTvdVSHuxoliTdQ1OX euNRXchltbMTg7WNpwCWSfn IA7BQExnBGjA0SlXUTpZV6s wyn6YYM5EKryCWQqNkC2JYN jiKCrGIVzfKkiOBvwn709KA G8EmTmKPJrgnTzpGwogQ6sV eLdIMKPQgO1VUtizuSaJQSv t3HvXXEgo2v4wEGcoOYro1W yzFN7HSLfc017mk5hCDPkcc DthOjdCJO1WIctPWxiKKlhv IEleMFmhMUqGZZdRU4oK1M2 lDYbTtUJxQp0wVQdPKKuOGT eyHSna2DjbUlaFXSdubFgK8 e0qUVfMA5rrunthmO8SOUuD CA5DS2asaGoISaqHCHsPFJl bHMpLCBhbmQgdGhlIHZlcnk rDe8iFModfSFjCrX6fqN2dH daHL4udyeddv0qHSCjue0= SPECIAL STUDIES (test m1ebyYBgOIOat2mvZDDinKG code = 3376) uZzEwMzNcZnRuYmpcdWMxIH ijbxNqBYjxs9OdR1YuHxPmE FxhbnNpXGRlZmxhbmcxMDMz QXO5elMrNZCpROujWZJfUKo oLa8zoFPuvVxwAgWnVXShx2 dvvbWGvinelUy1y9dxWITzV tB0eVPrWJgwM9xndgDaeYCk M9SmcISufMu0o0bhLlBoQgP 1uRHmPGuhP9ahbdYqoSYsUE ZuGBq1xN21QQFlgL9flYHhM YkxkwWnFiW2SHxfAAMqErB9 QVEhrBVvSEEkL4zjKXDrZCi cSCSsDGieuPYqNLY9pXhgo5 L2hIHewXAksXkbNsRxPrFzV sWLt8WpCZn6nSshM8TeISLt LtT6sUTwMYFrCGwvEOAoBPG ajuX4jNjjmoDji27rqTGyMX YwXGZzMjBcbGkwXHJpMCBDb 8KyrEwjEXU1pYp7oKtfYkdh CXA7Vmg4HR6gxp26tvf8wAx wUKMskhvnHrN7EUkbZTFfsx zmVSu4GGqxCVJikMA8FCIql AHdF6WtQOOmYP6idqx1ZNV0 AQlwWWZmJmQ5LLWnxSDiNWQ fpLxbPGzhs573KWV8GbBvDF 2cC9Ztx5F2hU9xvVVeIPSps WYoOuCgWZYlox3bzYXlSEjp k1KzMIP4afS1uWPabQXbSIT aOZ19Hcyjy0OhAdlvf9NiW0 8qvJL7WErqo6bmGA4vLwQ8w kVlJNuvg0vitI7aDhV4YXac VM5kJP6sCDYdlP7owrghIQX nYnJkcmhlYWRccGdicmRyZm 0yePcxYHV0UBjlI6ggsK4fH uV3CDbnF3ilsP3oVQu2GPxl sLJ7GUEmdP4hGD3nfdqkb9u eHCpfVKahUESthhQ3mnS2YQ JpkNBuO1LzpY3xUXUxBD7xf odjb9uqDMC8CGwyPDEoTFY5 TaUzCKHnu3Bzilp0FbJal9D qcHQhOXuxT88xq967QQXrxr BpH7enqUNfbryynBXuozpnS QdupaA3NNAlGSFuSLeuEUZg XGZzMjJcbGFuZzEwMzNcaGl jaFxmMVxkYmNoXGYxXGxvY2 naVcIdC2UuZZNzJeZoVVadD NdiaJZoyUJypXB5aM9kNI6f OQUulUBsV4NhGOJelfAqvRD fFIM7jYJdsJEsTR0vTMdpaH Yvt2xjq6DtZ6zacOwlbXD1L M3zTGWiUKTwUNhmz5ZehT1g LlxwbGFpblxmMVxmczIyXGx tgzrqCFTbACtsK3saTwXrBW HjsUiuGXygh0UwXDTwABRaN kjcjnTqDNf5thCgFHZtigtw YFGxqTrajK3xZdPrOiRkNam bAZ3yRWOhG6ozoUEiMZMzTH GkZ2zePsQfzY4jwJdvULvjW aVwMwFmAhRAl896da2jSNGk qWEjfwVRlEEdpJ9rAFxaCDz wYMcfyLMvSFtud8vdIRMfy8 k8hZOmLDWaffSot3wiBJndz jAzEDTbsNNxgCZvMQOen45e EJfiiFmrrPioOMHyj3YnqPq ea4BoCjQyHBabx6FtP07tpS JvbCBzbGlkZXMgcnVuIGFsb 65cn9haSOQvEdR6oXHqrFJ4 hGPdgECax9AnoPczQFCcj9z jKTEbyr7juxeqhCNij2UnrM 5pbmcuIEludGVybmFsIHBvc 9z2xEWcIETwBXKdFBjljBn7 EMBys910ds5ggzD5vXRkMNG 2YWlsYWJsZSBhcmUgZXZhbH VhdGVkXHBsYWluXGYxXGZzM jJcbGFuZzEwMzNcaGljaFxm YEzxFoOcXUQyLAaiB0bcCxV pN0GlBLOdJfTdmFCgR6bsxW FyXHBsYWluXGYxXGZzMjJcb GFuZzEwMzNcaGljaFxmMVxk TaNuLPRoLUutA0zuBuGwN7C yXGZzMjIgIFxwbGFpblxmMV xmczIyXGxhbmcxMDMzXGhpY 8dpQzAbWCDniDosQFwjy2Lp QJNfVNMmUksmqzFbOJm3fuD oXHBhclxwbGFpblxmMVxmcz UcGOrmhsahVSIcKExfF8yeV oEqRGJscTifABtef3CcYDTc GWYvBqagykFdWPfjpRYqn3g qg6JnN6ynaEgebNV5HTStQ3 fzhWUnlYX1ZXM7eC1uAIbxj zAwHAKxj3HeCSPeFNIrRjI6 aA6cJUJ0NoQQqZmxTHQeOGd uXGYxXGZzMjJcbGFuZzEwMz NcaGljaFxmMVxkYmNoXGYxX PomT0lnQwByC3ZqKZJuLzUr iBzsABzeKVn2XlnrsADxxaz mMVxmczIyXGxhbmcxMDMzXG kuW9kiEnLwAFBroQxzTIzyv 2NoXGYxXGNmMlxmczIyIHMg QRFmcHPydPUNRW00ZEIbYGG hiUpbnW3lvPPVOKStbrL3m6 I6LRokPIIvXEj7KYrcdgMjJ FHcxK4sOLIqWT2tBPv1dfYl SZNko1WiRJ2hBUBnaINoIPL 0YWPfc8JzA7Yfq8AdWSYjYC Ucem3ywwQgUbBBnXIzVUIiz p81UJYtBJ1jE2auAYJnVOZs dxEayGXkm2ZcLSIuzUQ3uDG lAV0KMmOJw37rKXFaHYVOmz SdGHUtnNxggXT5iqM9lV4bO iBUaGUgRkRBIGhhcyBkZXRl fl8qsdJiTGZiEUZqk3VzsYR vaLGkduAyC5Bgu7WgXXGzrr 95KZxwdIJfpu68VR7bX3Zrs 0GakI7mLXvfCPIiz6FrwHYx dWWlIYSfs8EmM3crakdjNUy xcPWsbL9tHFWhRTd3WZQak9 NmIUSci6TeGsTbytMtKPWeL VAfPISixP03RUR7xAxomHrc kkDwMY0cRZSsneHaONSeRRD mzV2uLNxuzrVlDYTgcqC1o8 O6SJyhLXFkvlZaMnqpRWW6v jBgqoH1kXGhI5dfifokSLwx NIThv4PgtW7waZCIsWNiy9C wuMEoiDQZkQFiKN4hvzUbNX 4wDQY0XQzeUOMFEGCwLGuqH IIbBJN2TEapYeaiFDX2mjMv AHPjp9IzIFdiC4qpL63ngUw ybGg2wOLncOpbmMKmnFRyCL HtzkK6r2X3BTNgs8HewqrfS HBsYWluXGYyXGZzMjJcbGFu ZzEwMzNcaGljaFxmMlxkYmN sDDHkBHgdB4rgPpNqLxSoXr obVLH0mZ== Gross assessment was [facility] performed at ([facility], code = 2777) Department of Pathology, [address] [place] [address], Technical component [facility] was performed at ([facility], code = 2778) Department of Pathology, [address] [place] [address]110, Professional component [facility] was performed at ([facility], code = 2779) Department of Pathology, [address] [place] [address], [id number] 07:24:40 Test Item Value Reference Range Interpretation Comments Case Report (test code Surgical Pathology = 104) Report Case: [id number] Authorizing Provider: Stuart Wylie MD Collected: 09/09/2022 05:13 PM Ordering Location: [facility] Received: 09/10/2022 11:48 AM SERVICES Pathologist: Ada Locke MD Specimen: Mass, Left renal mass DIAGNOSIS (test code = [id number] 3220) uZzEwMzNcZnRuYmpcdWMxIH tccnRmMVxlcGljOTYwMlxhb cWqJSFdpAQsF6MdngpxPJyi SC1kQP2yuOxdfFOojUOwLVN vVbDof2mvu661pCFma6rwPD GOzwytlIe8vTouX91rp3P5T imlE26glGRiDFA3AKDuMCQf rBLxTDVnKDN7ALAtoRNrT3a wWCHuEO0eaeedSQtgADptZN GjdIF0QCGxeSOqY9ZpETOeQ JmxOMTukmv9YpDvJp6afVDs eTcyMFxwYXJkXHBsYWluXGZ nIbYyN0nRWcGTCFUNGEOJKJ JSLMRTCGQHSK6SUIvMGWSMW 03QHaaoVYNeeHFbPM0eY3lL NTDvI3FKUPXQBT2KPCFYDLo AELITAyELAw4PEEglD1iEI2 zCGPOxQ6VJGJFyS6deTAYku RRkBE8lDTHFC2FdG9nsSBed CH30VECRLIhOSnUIZEZEJED QYo6KDbTBWV0CJkKVK22eZS Zgzid7BNHqDARCJL7QZgAHH R8PXWCIESFTTHjOLG6KQVck CZYjsWNlZX4pEm8mY4RND29 NQVRPSUQgRkVBVFVSRVMgSU RFTlRJRklFRFxwYXJcdGFiI T7sRj1lBaoSPtGVCEPrRcAO VFVSRVMgSURFTlRJRklFRFx qDNUqbCRuOT8jVr4uLEgTAL kUWuGKJ9FJGVWpXY6QIBVBX 04gSURFTlRJRklFRFxwYXJc gLYxHU5zDDBEN5IkTCOAYEE xVUdBVPKCWzSRB8yTKGFRQD XYRgsTI3ADXA6RXtkYXdxyZ ZQgvEBiXW0gV2DFXuXxHw0P IG4OI6FSOEVQGPQfB3wRSkY PETfHAFrmLiXPXHCZT0jGTk 7XHWIwI2uCUWBQEGkIZPVux s19KOB0IxLjy3R2NDL9JMAp SCXva5bjSTJmhDJcEzXsVlX cZnRuYmpcdWMxXGRlZmYwe1 tqm454fIVol1emGVOoPdM3v FXhPXEkiIUsI620BGAdANgm r8ady8YfHCPxhGGlx4Z0ATW AjaoceHn4kAepI92zh9R1Jd smA6cnRBDcPGWoL4GhAH0cI NVjFgy0EFD0VYX5RZNjAYLa H3GtCZ9gCLMxbFGuLWz3p3z rqKsaNJFoLIX4d1ljCFpqed XhCD2fdt0doLo6j9uixbGmX TLjQJQokQQDKBPwR5XduCso Zt0lxNf8vWolCfqgKCZ0Zyq 1MQ8jdm21sej1eHzqXRJbrm xnQwA2QUxfJMWknbcxGQb1T NnhYITgwOO5VGQioJOeA0Fz QZMhGG7dihd0VID5SInaIAX nDeH6ZCXezRIoUMGkkRwiGN xpt019JYD6LlHkES6mO2Jhe 2W9uW4btMTlCPLmqCPzPuPv MEEkub3nuDNsMPbfl7XeBYP 2xoX9jCZasEVuFVUzHxK1FN sgEH3ekd23WANlRBV0jc1ei QEfmSduzvMpcIPvFYheB2Jv CPEff149JYNfT7XiDFChx5H 9jdWzTqTlHNYfhGI8lnY6QS SgWQ9aumape6wtFGtvXUhzA VXiamV9klP0UAOcoPVmS9Dx kQ7vTYMjOL4rldkhx7caIBF 6KRwcKHNrUQW0IuZcJRRph5 Kiman2UeDhz9PzmCMbIUytI 07ge115UKBvedBvC6oprHFy ybippUFpszjpRPsunvG1EDN xXCjiegtvSHBfTCeoR5pgEh IaCHQjoNyqOIqez2JlZIHvU AIvCpIuaDOiGJIpIwg5YRUw nWErTKAxShHtR2hlwwtaVdH CCIVcx6usC3ulqWZVkYYyW2 QgUGhvbmUgTGluZTogNzEzL Nn4PN88YxYyHZTcuc91 SYNOPTIC REPORT (test KIDNEY: code = 5765) NephrectomyKIDNEY: NEPHRECTOMY, PARTIAL OR RADICAL - All [id number] Edition - Protocol posted: 02/11/2021 SPECIMEN Procedure: [...] Rare sclerotic glomeruli CPT Code(s) (test code o7rzlYMuZCWsvJC4DeCvBWF = 3357) yx5xmd1MmuMCzoREeFIqnbW WphmYfqz29jIW8qT97LU7nR PRuPfF9IFSxdfV7Xoq1FXFu EWOjjJDwI741q9veb9swhlG keGN4aAunEZNqedoxTqA3NC niKWLjisagOWv3FUanNPCnx EU6IEKjhBUwB8UiHKVxVT8a fog6ZEK6SIjpQGIkTuU1EWJ emJPlSLWumPnsTMgtp749DU M8PzIeWQTrwuNonFeskM4oE mPpYNK3BMAkD3zwMSUvHKph NDJccGFyfQ== CLINICAL HISTORY (test r3gzrBDuMPQrgND9TbDpFIN code = 3356) ng9qrm7GfuWEpqYOwJPctwO VlchBeau24hSP0zY20NM6bF DDcQlF4VXChywI2Lvj1ORTc IXVtgSVuC527o5nlq2cfqiV fyJO6fVrtSIYxyqofOnO8LQ tjDCRizhqkESy2YVcqSOAyo QB3FZIueKCoP4HjTRIrLN0d kvg3LMO3NDjoWGCvDbA4PGL rzDKbGUUigYlmKTkeb423KJ P9NwSuKNDqvfOgwSscnJ5uX pPpCEXMBV7leSApTEHrSJAr cn0= SPECIMEN SOURCE (test x7ucwYQqYPJzsNC6RbNnUPU code = 3377) wk9nhw2YmcFLipXZhXDchpO BhpoWnpo23bLM1eI52RQ4qW ZQzUpM6HCJmobH7Ihg4ALIs DWTlaGYzR689c3fgf3epygD xjSI0nByzBMHsvlphQcE9UG frCKDvonogOJi2GJctGNZgm VS7GZUqbQIiI9EuJXUhDL1m cwt5KRA9RPivSCUmBsT8ERE bePEzVRIxqIinNIhoi103PY J6SlRyJGVvlxNpnDypkB1aL sIzVEDQJuFzT3ljheO7CMXq PEU7AYFfWGTfJSWnyj8= GROSS DESCRIPTION p9fikMZiKMUfuMK3NmVwMWY (test code = od5akv1TvjAZlhVQbQUowbM [id number]) RnsjOifr49bOF5cZ80NU8qB DDnZlV3CTBoheF8Qdc4BVZv VBTekXXzD420h4tln5pmayF qyZC4TYKoZBPjZ2FlTV5nIZ EizOVqU40fuUEzHMF2CTEsK OUqtKUyPRHdSWG4MODcvYVe C4hsCKLhFL2vlrmkFYwpHYb uKSFblZZ7HLTzzGYxG0XlEA QnOLbvYILasgt3UtBzTv1ox JRqdMdmTPmzTYJlf7jeAPLk dLJpWIA2CDxhrHZgKGFaPAT yKIw1UXOmCShvgLVxRZ1jbT tfLfshoPzmh0UtdDNfXYsdQ SNcHJNuSRldYKVvE5KKXJCq PsvgCuL8JgZvHJp5BZxcB9C SISSeSBXrVpN2RjotVmL5UO w1TTMHKh8uTeY6WELuEZq5F WY4QKZzAAbtqPIaJRulNedn XSobQDRtpJRpYCqfzqH1JAF lJVvqUEYpFsYlLZ8yBKYqha 8mqILqDRCwOiEaWmDuRYj1U PXeLcIml3luLUcoWcRaIJBf v9y0dVB3nGZhtHL7eLUlwBa kGT6ubPCzLQ7ZRtBwgbMrN4 ZtQWBokMkfRgGlRBc4W9gsM xEpsXKyzVSzQL2zxOYmZLRd MDAvDUe0YWUbCAJeSqj9YNz xBODtTNFoPUM3FLDkP5LsPX fcITOkKOPxYY49GPwzFt90J SmlMh18AOtaFuJkD21gjKPa BU3dJZQbLJMdebRcH1QgdGU zgHvgvUZfMIVdhmLisW8zxJ N6yLAlKWCpz6ultwxhgBDhk rIsTW7ejY87RM4kLFLtfzff UNVwdseyDYZdhKUhYY2wLHs iVL4qZRooTq64YVfaZQGovH ZtOPFiW9Stc06dzibpspB1K XNqhiKaQLiztTopB8hhT9Cc j6GrmHJbXMG1KE9wbEwlbxG pt1JpaWy7DKeppW9vdlkkQ6 cxMB5uu0Wai1sbX0tboBRyR ZGwdi22lC3abPZseUL2hEIk r9HkCRDgyTdhGFMsYMKrABV bpQQgQCxde8HmB0BlPEZjPU V3IADoMHI9DFKgUKwiDSQaB QSzgPUaXEX6yMHtecbrdHvh NMPtrtBiT2h3hMZdOK7mavh wkwRvikBwT75wHNXtz7c3yA axXRMwFNWtsPNaNpS5gLSeD 8Gbb9BhUOvgkAVzkrNnnhDb un7it4c0GBHdqxWoxoVxFKW vIHRoZSBraWRuZXkuICBUaG XhVHHgzfNhhK0ulGItRNGxI O2zstYknJ2przOdpYIvQQYy JS5ftWWvRGWsajVavD0nEhR xWFirXL6ff6RgcHYwp6EyuY w8uWGhYCLsfExuSLl6ILysM ESlj1AdmRLgIYPjKSEtLx1e jOslIHirEJSuTT9bJAZsPOW 2GGmfCAYqAag2RJvnFGVsKI 5gdNgpDFschTSvF2klBVCdh qJHdFBfmuYBSJZavYwwF4Oa cmluZXBocmljIGZhdCBtYXJ nwG6dvPArOEZsmuHmRQCvFW AgKFbzJCMBRXAnsGBug1ekn Cyjx7VoyJKjZW43QLIitKHf SDB4XL9fpUodANC6 MICROSCOPIC k7cigVGnYYHqlBK5FoCqGVH DESCRIPTION (test code wg7vnl7BlvRDchXVlIOvquN = 3371) SlahDfkq45hKJ7wG13JM8gJ WSiJjG1JXLxnxP0Oub6FUKm ONBjkWYgA917l4chf7ijmaL okVX9gPkaISPapdfiDuG6BP obUSJdjrluEWs1ZWycBVCjj XN2TLAkaJRuJ7DbIQGnUS4b raa8HUF5EHrnIQObFzH6LKZ woSAdDYFidPnkDQpqv495TP E6VpBqEUQfseTdqDtiuH4kP oDmWUNCRpN4VUijwcVaPETo r5KeNVLms7v1wHMkkYRzw8C wlYQ5JPKvu008eb1oERFzat RolOelALY5BHtbNOuzQJtvk WGtvJKutXZxJCIvMY7zY2W3 rOIhCnUYlEd5nJGqFTNlUIX okHUbo9GudLjfQBOrniNxO3 k6ePYvBX1ncbxoecM5XYAyC TO6WF6jceZwTDmiFEQgXGNy bHMpLCBhbmQgdGhlIHZlcnk lOk7eUTqozZQqMfU5jqB2oM vtNG0xrcestm1lZURntk8= SPECIAL STUDIES (test q4nbgMCxRSSig7apZCHvfPH code = 3376) uZzEwMzNcZnRuYmpcdWMxIH xdjsKzFZlwt1PaI9SjNvDfB FxhbnNpXGRlZmxhbmcxMDMz BHP2saHaETZwMTmpTSQaRIt eKy4khWRbxTvwPxVmQANkl8 ebmcEQyhrcqHe6a5xtJSTjW jR6wOLrGIchG8ielwEkuFHl M7BgdUCozDs0s5zqYdEvDlO 1vQVrXNsoV5hbviFygDIjFU PrQAp9rV81KIVoaQ1qkIGkW ZqmwkUnXoB2GPdcFAEtHmG1 NMFuxADzJDOfJ6rrCUSsXYy mJUThIIaclIKnGOC8kExol8 D1hUQgfTGhiNkmTnIsBkOzV sKRm1UqQNk6kCrjM8ZwZYRi CpR3wXRlCFOkTYgqDYBhYCJ qcjU6mJdpegNkt01nkARrQZ YwXGZzMjBcbGkwXHJpMCBDb 2QenBleHPU8tNu9tJizIswf ERO8Ysu6IA8qdo65xwi1pMu nJWVreoqhYnL2MXdsMIOcea eoZDw6YFhpQCEqzVK4PFVbc DMcP7WbKNLfKN7zftb4CHE8 WTawLHKfMpL5OFPbsGRtSBL whVkvOVpyx967NNH6NgQzDR 6bU2Qwb5J1zV5yuEDsWOBms WPxXfArBBFqtk9niJPnKOpi j2MuJWA2nwX7lUYoiGBjJWQ hML22Slidl2CbUhauq1TaR3 7zuQC2AJwbm7kyTN8hPfC5e oYbUUgai6mgbV4dReL7NWbw SM0cUU4qPUFnrT0nehlgEFD nYnJkcmhlYWRccGdicmRyZm 7pyVxtJOJ7UCphA0ghuT4yB pO6CJpoG0mjeJ6xGUg0MVev dSC5RUBxqC7wAJ0cxpwdu7a iDOgbDRnaKATwnvU4khM2JX HhtUYpW4KihH1cGTNoSS5lc msyl4sqICJ9BCxiTMHvOOC0 OmTcDUXcn6Axkzr6LwYzp8Y qvXLrIWdoM61re062WLXdqh UeK8wsaJFfxncvhOCfufqlH EzshrP8VWHgQDErEIjhTGOp XGZzMjJcbGFuZzEwMzNcaGl jaFxmMVxkYmNoXGYxXGxvY2 sfKvCbR4BzOKHuMfQoXIjvZ HsiaECpdEHwlLF3lL3bXC7j DCZvuUEnG4CdVHLqriUrtZH vGSN3lXKifITaZS0vIMbwkI Xso0hcj6ZxM0jioEjdxPS6L Y1tGVNaQTVnQQqoi7DuwM1l LlxwbGFpblxmMVxmczIyXGx zvhpmKDMaKSgzB1hmCcQlMJ XpnAmeVZcaa2CfRAJwWQWgC intjpUlLZc6vfShPXVhltjs YNJguHrcvS5dIeErDnWyBue rQU9wKBWxY9dhrADqAXJqIW XhR8rhYqLqkO8tmUfaIAzkV rSrAxTeXpDKv880yn4gSOGd jOYauuBCjYHsuA8yRLksXYx gIEeydJAbKNrwl4pqPJOnc4 q4wGQjLSCkucNhv3veGBdci nBfMIEmfWMebULuAYXbl83z ZMeimFxtxTqlPBIbo7NfuRk wx2QtRgZgNTkru2JfQ29dfO JvbCBzbGlkZXMgcnVuIGFsb 13gk8uoLMSlNfP8fYKmjJF3 uCUfdSHvm9VawPgjRSVff2z rMTSvcz7pkqxvoRQqw5DkxO 5pbmcuIEludGVybmFsIHBvc 9y7aIBfUHHzWMRbOKqjxZz8 EBDcm193no9fvaF3uNNeJTK 2YWlsYWJsZSBhcmUgZXZhbH VhdGVkXHBsYWluXGYxXGZzM jJcbGFuZzEwMzNcaGljaFxm MCsoVgStLCRjMPspS0usGwB bI1DsVIIhKcXbiCEzS2wqkP FyXHBsYWluXGYxXGZzMjJcb GFuZzEwMzNcaGljaFxmMVxk XfTvRVJsWClxP9ozIrCvV7I yXGZzMjIgIFxwbGFpblxmMV xmczIyXGxhbmcxMDMzXGhpY 2uiEmCrCYPzvLwdAUusa1Wt ODXdZIRxQihobxUxKLu9hbF oXHBhclxwbGFpblxmMVxmcz PgBPrshngfAYUxNVojO3ktU vVyJDCklMekVCtxy9LkGUKe HLSiTpctbpRaEUnhaHLhr9b hh0PzJ1hvpFndwJC4LPJvD0 kwzNQdvSM8RCR0wX6gRRano rDfKOUpz9KwUEPyOBFdOzT0 kT0aVQZ7VxDWtJweVTFzXGp uXGYxXGZzMjJcbGFuZzEwMz NcaGljaFxmMVxkYmNoXGYxX HwiL2jnHbBfS2QqOEVjJgCl kMeiSPqoPIp3YnvyiJAjkjq mMVxmczIyXGxhbmcxMDMzXG lgF3tvZnUuDFAjxJqrVFhuw 2NoXGYxXGNmMlxmczIyIHMg LTZofQWzzAECIR96NJKhOBX yuYqlvU4jxTNZQZXzhgE1d6 C7EGgzYRHtOLv9WCiuiiIdX XDwnQ5uGWGoCM2iPOw7faKm YPZfd9HpJJ6gBRZayANmODN 7EDNqv8BeW2Mwl6CkHPVoYM Uybi4xdhKlHfGVwVWmYPUdi k81EOIzFK0fK4uvSXDsAGSw doIwePCcx1NaMWDvqGO0gAR bEM6FVnXHc00kQNIvRIQPdl KrUCWyfOisoEO0tmV7mS4lU iBUaGUgRkRBIGhhcyBkZXRl pe5bdpSjERUpTZFfw3HorCD kmATqgsRrK6Nts2AnBSTuds 11CQkxnMGack74CN5dG8Cxy 9NquA4vJMbxCSWtr5YupOXs qJKyCZAdl8QwG3apherqAOf cyKEziJ5bCCCuOSh8TFZky7 VcONTls2DsTlAwwnZyGVUhI EGkNBJtbW82WFU3vWsprVfa bzHqTM5lJXJdqqFxGWOeWIM tlX1hEVlmopHdZLYiggM8l1 Q4JMfaRRYlxuLmDjljZTM5j iWflwV5pCFwB1olbjncZMtz JCMfq1HovW2yyJRRfLYph5O xrRMjoXEIhITwKP7ftgTpED 8lZTB8BVosPEPFOPByBIlzK RHdKVM1YOxzXnxxOFE6fhZx KDSfv6HaNZayL8wgB23aiSw mtXw0qXAguQcpoDCdvDMhQX PmphL4j8M5KPPev7QjtypoQ HBsYWluXGYyXGZzMjJcbGFu ZzEwMzNcaGljaFxmMlxkYmN rYFNwKVcuF4azIsGpUkIdJc ycHPK8kK== Gross assessment was [facility] performed at ([facility], code = 2777) Department of Pathology, [address] [place] [address], Technical component [facility] was performed at ([facility], code = 2778) Department of Pathology, [address] [place] [address], Professional component [facility] was performed at ([facility], code = 2779) Department of Pathology, [address] [place] [address], [facility] Center[facility] [id number] 07:24:40 Test Item Value Reference Range Interpretation Comments Case Report (test code Surgical Pathology = 104) Report Case: [id number] Authorizing Provider: Stuart Wylie MD Collected: 09/09/2022 05:13 PM Ordering Location: [facility] Received: 09/10/2022 11:48 AM SERVICES Pathologist: Ada Locke MD Specimen: Mass, Left renal mass DIAGNOSIS (test code = [id number] 3220) uZzEwMzNcZnRuYmpcdWMxIH tccnRmMVxlcGljOTYwMlxhb kNjQIIsiSLhB7BtjqdhZLlj FP7aFM5bxFzffOYufZDlLPE dLdJtu5prb953dZUfs9seZO HPfrhcxDm4fVesW19yt1L8Z ogqM78jaUDfPFQ0JLGhUSNg aWGfOSEhRZJ3SXDrkRPzW6n aXBDpQR2oyzxsKIurLYxuGZ PmoNT1PCPwlWOkO4VkAUJgA BgkCSFhewq4IdNhRu1cuRRt eTcyMFxwYXJkXHBsYWluXGZ uBtNnC9wAVdDBLJMODGPLAR FLLKCGWXPHVE3XUSzRMPEXE 83AGdcrQERhoEQyBM5oF7kY OOCqO4OYUIZFKL8MXJETEHe ZEXIZTfQUCr3WZVesY5lSA9 wCKXIrC0QJYIYuG4ldMEVcc KWdKS9lDDZWG8CjL2iaWJfd ZV90XVPRYUiBThMZUNNQMAF AQn3LIpDUBX0NGhJGI86fDJ Ohcyf0HOEeQQWFSV7OOmQCV B4QBWNNIZNOSAoJXQ6XMHvx RLNoyWCdIE0yEl8bA6EXX20 NQVRPSUQgRkVBVFVSRVMgSU RFTlRJRklFRFxwYXJcdGFiI X4xXm4dKacLYvBWRAIeBwCC VFVSRVMgSURFTlRJRklFRFx pBICxfOOfZM2cDt4xMGfEUF zCPaWZH3ZPEBCvGF8MBFTUO 04gSURFTlRJRklFRFxwYXJc fUEfVM2pUEBKP0SgEWBXKBN lZDuQQWETJmIKL0xQWWXWCO XXRyyDK4OCFE5QSvuYFiywH QIhrHEiMI2kC3NZSmQoPw9Q LK2LY9JSFIBUFXJiW3pXKaM XBIcTEKoiVrYGIMQPS4kJVr 2RROQdF7zUJSOZYKvTPTSuk b75TTM4OtQrh8G5HRT1SJSz EDMyd1jgNMWncYZaHtKuAvI cZnRuYmpcdWMxXGRlZmYwe1 mnh345fXIgl8lcJSDgCzK4x ATrKJSkwLHqC933CBHeTJxe b3fzg2JfDUYbgELrx3K2EKZ MdopczPf6rHwlE48ue2V5Kl tiC2isZSXbZBTjB9NfJD6sD LWzTei9RSW1QSQ3SJXhCPUq K9KuRG0bVSBhoIDsQBb0b0w mmLomZOXvMIB7k1llRAucfq DaFZ7aqw3ndXe3q0lwkaRnH BFuZKHwjRZLQSBeB4MpnNle Nh3izQt0cVucHwozMDT7Ikp 0UA9bzw91yvd3xFgeFTMtka myAcO5PIphARKkrwcnYBl4Y ElcYNAhcGS1TQItvJOiT3Ga QTTcCU2phaa5LWD6XNzbEES tAuB1GUXgjHZbZNHhfYvqBD cal484LDZ4XpBxIU8cC6Ryv 0G3vX1lnUDrADAdaZWfIsZz LRSdcb5amXYhQArke8PsGJS 5apR5pENvdRUvINKdKxQ1RY ycEB8rkk24ARFaXEQ0qf3pn JRyoKhcrkHiyPRmPCmfE7Xm EUVor682ICDiH1RtPNGmz2B 2zfAsVsVoAIBsqSR8upM1TX TfMW5ejehax9mfQFigSZcaQ VBkscK9qbL6HIRfnPCiR2Hd tI1qGMRaCK6kgaxhp2lnWOB 6XWphMLYcBHX5InBwMZEft9 Lacez9GaPqw9GmvXBeMQfrB 03qk085ONWvdyFgB1cuuKGp buxejDAbpwvhPSmfssM7YBP fOEmvpnhwEILaVZlzT1ylDx GkOYYhnKhfNLfbb6EaVBEjW ELdLtGhrPIiLZZlSbl5NQKh pEXyKDIgQmZvD9huljjrBpS FAAImh5dbX1tuiUSIoQQzP5 QgUGhvbmUgTGluZTogNzEzL Ww7CJ91VhGqFEIoeh43 SYNOPTIC REPORT (test KIDNEY: code = 5765) NephrectomyKIDNEY: NEPHRECTOMY, PARTIAL OR RADICAL - All Hqlzutnvy5jf Edition - Protocol posted: 02/11/2021 SPECIMEN Procedure: [...] Rare sclerotic glomeruli CPT Code(s) (test code d9eidBGoNQNmyET2TgHuSDX = 3357) ju0zwu3NggEJqcSWlAXliwR IfrgEdby62tIF2bB24MT8aV AZnJkC5YDJtvdA4Hni6DLSo UOAuvBXdZ142a7hlt1eqjgH ciOI0jNjfFXPbzjkmRwL6RG qpLPXtbkowOMv2ZVvmVHItq YK5XFLcqRZzK5NlFSJrCP4r xpj2RVG4TJtoXIAgCnF3CAX tmIOmPAMrfCpeTHuka723TV O7QvIlSTTtsgZghTtbxB0aN fXiCQJ6PZMsG5bdGNSuBWmk NDJccGFyfQ== CLINICAL HISTORY (test o0tbhNJxOXLyzJN2EmIfXHH code = 3356) du4aul0IimZItxMMwVUthyC FivnEstq72xKY6lX77UE6fK ZBwVwT0OYLqaqY6Kri8KADg QGNywIMmJ167w2ffc6oyowD evGM8qKxnGQHfpdttAyY2NU ycDAAuojvxZWa3WScvIJNjf YM3WUQqbHCkO4LcACAhTV4w zes1VDP0ZRhmLKOwSbQ4XQX oaIQhTAIusVfsOCtrg831HA N4OlZiSNDopnZciZqvdK8nT uOdKIGRHJ6zeIApLUDiFXEw cn0= SPECIMEN SOURCE (test t7yqzSBtUUZqhQA3GsFbLMF code = 3377) uo1stx2EhgZWgaICvQHxevV XcrlOsuy25rFY9zO03KQ0gM TQnQaZ2DUIfnfU5Mox8CGJg CWCybGMpA794s4ktr0abgdZ ygGP2qBlwFHGhdkhaYeQ0NR zcNDRlzareCHi4XLifGXFff GB1ALNnfFMoP0RbXLGwHM1i fzi1SRT8MFpdLEJbBmO9DEX tbFMdHARxlKugJWemp982PC C3IuAxKHFcfmFyuLulaQ8vI sCeCQYWAzVyG5biewX5BDDj UFE6STEvLBItGRGzlu2= GROSS DESCRIPTION q0hkwUKcONOabYT5TwFqNAG (test code = pv4yzn7DkcDAaxWHaGNeqgR [id number]) KggbDnsd96jIP4eR94FP5pF XTfMlC1HDKyrrH9Qsm3TNVv HHYwqCMqS663h9iuu6fpjnH xiSA4HMMbCYXlL8KoVE9cGJ BgcMClW21giSRrOAT9SDSjN LNzwVEfYCIqAQF3IYQiuZDc X2vkPLOdTJ5bpakzNNszOYc sJHXihLR2GBFkdCSmL8JsQB DhDZqqFBNhbvt3OoZaKe6im RPekLaaIPgjTJPpx2gnHPHr gBWpXBQ6HIlibVGrODRjDPJ fENi5OIWzLFtucXKrOZ9aeF hdJqlhnGtzb1ZczYQzECqxV PObKOZsIGnaXVIhC0BWVGEm BcaiOeX0ZbQcTGl9LIsvL2B UUYZeUCBtSzR6UhhyVzY9IR d4DFWLUe7hCbY9GFRsXQt1X KK4LQHoVEllwCXtZCeiLify MNjmJYRyhJOeWPfppcX6SLY eRRbqGBDlKiCnOW1eZALtxv 1akYKxGLQwMlUnZmUqGWw1Z HApLbQwp9exMXkvGiVmBKRp z1g0jVU6iOSjmDM2kEKozYq yJG8tjFNyZX4SNbQsluWeW2 MkUEWlgOloTvHmCLq4O5unH fIjrFTgyPYgIQ6cmZQhMVAk CJJaQOd2YTKySGRaXql3BRh xTYAbAZLfVKR7EVDvD1XyJV tsTEJnDFWqIQ50NFjfOp10E LgcRa88XLjoOuNdT67jyEIr XW6hMTGlYCEuaqBkZ6AtwMI seJkmiORxKTZnuhPolR5pqG C9kIYlSEXgm0ybythqtQZml kAdUU0suY27UT6aKDCbovlf HKPyzuimJTCeyBJbCV2lXVa hTN1wPMbcFf48CUdgMBOwgZ PoVGWbH5Wvr76jtdpgrgV7X LJkeeZoYEbchAsnO8feX3Cy f5GadRFqEGS7PE8unRlcwsZ zw1PszTa0JMtdbG2igasoC2 mzOJ0bh7Eji7gvE8kjzKBiU XJvrs20eI5vzJCpfGO9jEHq j2FsKVVwdCifUSHtFHJmXDC ymMZhHXkln3TiJ8UpEFReMB J9VYKzXQX7CNPiSFoyXIClN BLvmYIzJTD5cOZnsjxsiTvw GEOljgLpS7z6vMAoFI1pora mymOcuvSpP83oHFHtw6x8qN zfIBXyNPOmwFKlMbC8nTDzH 5Mux4BuNIuhwWHmluYhlqXc op4kd3v7PMXhryKbutRvORU vIHRoZSBraWRuZXkuICBUaG TdYYOpuqRgmU8xsRDbJRCwF C1nmtThzN5hyjFwhDOgBXLk LI1flAZpIHWjajFxfH9kOpP wCQvjLN1dd5UlnWUvn8IkkQ s6hCVqNTKdzXglJQx0EYrnG TIxn0WkeRXfSHVeLKTnZn6i sJpqLTolHTWgVQ2gOVEwYAK 5FUvqZNUdOiy4RPikLEHpXP 3asEmaVGuasBZpV4pxKYKgj tWAqQPpvsZFVAYinMumU1Dn cmluZXBocmljIGZhdCBtYXJ rsD0wuCQsJZYnzjGwFBIlRJ ItUOdqVXBMTSDrsYCfk1piz Vapw4JpjGCjIS74KIJciIDp KLT9SI9pgOinWCD9 MICROSCOPIC s7rehHYfUFKngVW2UdDpXFA DESCRIPTION (test code hv7hwj6IdrVRhpIMpPZuvvT = 3371) SmspDzqy45sVP8mQ85JZ9oO SUlRsP9ZRFavrM8Fsg7TKAm TBHvlJEcO211k5esl0mshlV hjXU7qDauALVeefurTrP7LP zkBLMeutzlGGq5WPzsQWNfi RF3JJOvpCTwN6RnDRFdWM2k uut6RCC8WGaeEEZnZpC6BBX rsTQtTEIrlEquYIrfc811XM X6DzUuIDLfhiYswChawL2cO uInIBMGGpK7XUtanqNfRAYk f9GcZVDdw7g3lNAyaUXwg8M qsQK9VJIgk073oh5tFMFspr FxeOsvGKV7BTftGHhjONcal UGvtBIczDRhOZLqMP5vE9C0 iFMaDaBLvBi1kOLpZQCbMPX umWQpd4LhsYsrPYEnkrRyH6 b6gVRpVM7ffdibmpQ3FHUtE VF8WS4xydWrVAdhTIVzOQHr bHMpLCBhbmQgdGhlIHZlcnk iEn8kDXbfjUVnUpC9urO6tR buUB2zaqfipb7zYABaxt2= SPECIAL STUDIES (test t3meaWGrDPXxt8wfDBJloMW code = 3376) uZzEwMzNcZnRuYmpcdWMxIH dvzaWrWIupe5IcI2QsCwBnP FxhbnNpXGRlZmxhbmcxMDMz KRP1tiViYTZxXAkdIAJyJPs qLk7xyMIecTlyNqRwBEUtv9 gxxvGHuisxoMp8c9rkNGMbS yN4wPZiWHpkQ9oipeMojFNt Z6UvjHJicWv6t1wmOrZqMtN 1lSEtQJnvO0fkttAnmKVuMT RgSAv4yB89SFYquU3ztXSwB YmsbrGbGzY8DZvnJNJaBoU7 KJArlPHoNQAwP6edLBEkCQn aCUZjHKebwAHmMUQ4jNyuj9 T0oKRbbIAzbGiqCwZzNrXoP gVSj2UhWXq1lNoqY8SkFHFw JtT6jBJbDXZwRYnkILYfEFO bfzA1iKhkebGsi88vhZZpLD YwXGZzMjBcbGkwXHJpMCBDb 4NbkRjnRQI8eOp7lFjnSkkz NNR8Bsv5TT7ehy80nmx0xCx wICWfvhoxPoZ2VIllPMVzxa qiKFm3GGbsJTKtfIW1AZLpd XHqD7AiJDPqBX8nlie3HYV8 HIymWKBoKkS1BTZtqWXpZOI duOavBCwfo889SPJ0WgMxLV 5gB2Nms1S9rS3tmBKyXNJyc ZRxBtMcSDRygj6pxWZjGYvl y3GoLDC4hyK4lOPovXFlIDI cKJ46Wdqwd4DtLcvmn4HfO3 4yeRT5REbfq4giBN6lRzJ2o jPlMNfny0syiF2vXfW9RZsd XO7cMD9fWEAsbS2skkboVLE nYnJkcmhlYWRccGdicmRyZm 7ujLwxXLV4XRpuO5egpO9hN kU7YUmlP3ervW8sOPm1TChh sXG0DLVsoP2oQS4cronto3s oMEdnCEveDCKryjM5jrL1TC WgoRLtM7FfkR3yMTXyTG5fh fpxg3ccNLA9KQqvSIIwWYS2 BaHaZMSyk4Zqhun4SyJdw4M rsKQmYMkkB60gh556KAAyak NvV9rlpDMqczchsNRqrortL AxnccM9BCCwVGWxNPxrRLPk XGZzMjJcbGFuZzEwMzNcaGl jaFxmMVxkYmNoXGYxXGxvY2 qwZgZfN9MzUKDaFeTgOVqfH JxszXZiaUShdIZ4qT4pOQ4i NWHmeDDtZ1ZvWWPgvdIhcIJ dAPP2lILilFKsWW0cUGfpfN Rio2nta7HvY7pxzYqncXA4V U4dQTRcJAJsAAntl5QhdO4w LlxwbGFpblxmMVxmczIyXGx nmeizOORpKTtpQ6tsIoZkHQ SglGjeYUvno9FdITJiRBPaI fluazZeWBa7ymZqCBYokbkz DBPnnJmsuN3yQaZzPxZjPox nJS2pOEOpT8jhaREkNZCwMB OhK4wlLaXzeO9byQjtPQetY kMpYsBoDyTLl482uk3bRLVe xUXwdpZWmGCnpV0cWTndSRv eJJunlACiTPkpz2adQBEss2 r3uAAsOKIsgmWpa2qvKDgdr nPmXOKgvJVuhIJzHKByb16i DFioxScgnXseUNOwq1OmgCq rc0XfAjEyUEihk1CaG09xfN JvbCBzbGlkZXMgcnVuIGFsb 89gq6bkTSNmSxZ6zAKrqDB9 eWYzsFIjl8TuoHynFCXxo2a sSGRjgt4bsjycyKPuk7ChkM 5pbmcuIEludGVybmFsIHBvc 5o8pJNiFOFlBJPfOEfuwMh3 RILfi823sp4cirJ3qYOpZPP 2YWlsYWJsZSBhcmUgZXZhbH VhdGVkXHBsYWluXGYxXGZzM jJcbGFuZzEwMzNcaGljaFxm MHooOvHbWKHpQNnhU6xpEiN bV3RhXVNbTzVohQUyP2fndL FyXHBsYWluXGYxXGZzMjJcb GFuZzEwMzNcaGljaFxmMVxk JeFqFCClARqyK1hkCpQnE9E yXGZzMjIgIFxwbGFpblxmMV xmczIyXGxhbmcxMDMzXGhpY 8sgUfSdSXTogMjrWVanl4Yw QLMbGYViUthjczIcUNf1jsB oXHBhclxwbGFpblxmMVxmcz IqCJovebwwJDGxVSosL8owO hWtHLToeUktCThpo6ZxBYRt QVQiUuzznaGgTIuswTDlm3o ro2VxV8bmfPtwrPM7GVOzU8 yjmPOlnYP1AKF5fX7cVXjkq yCuDEYov1CmVPYzCATlJeC7 dS2vIQE2YyXFnFgoXPCaHQx uXGYxXGZzMjJcbGFuZzEwMz NcaGljaFxmMVxkYmNoXGYxX IuvJ4vnAuSzU8PtRZUgJkUx mPmjPKtqGIm8RdnivZYqpdk mMVxmczIyXGxhbmcxMDMzXG kpT6goDoFsAUQfkZjgVWylo 2NoXGYxXGNmMlxmczIyIHMg QVLisCJefWIYYL61VEKqITU dlHneyL7ewWLBLLVrceX7c8 I0GBfqOCLtRPm7IEkntyWwD WQtoB7lINUvCL9mHQj2wtAz PGLad3DkPV4fMFOvoBNuDSV 7OTMmp5XxN5Ttk8CwDAAwQJ Fzdt2jbhYfXfLMcPKfFZWqv f09ZBGvOV4lQ0ljZERlOLXl txSabCLju1JwZQSjwUQ7yEV jOW3MOyPBu14uJVZhLDSKnv CfDYWtuNhyiPP7uzU7cZ8eI iBUaGUgRkRBIGhhcyBkZXRl ub1edzMrBRTeNMDag4JjuMJ huUYfgoIxD2Phk3MgOWSroc 47JPuflDHzaa61ZN4zY1Kkl 4MmzA7lCZxaURUmj8GclDEj cAZaFPFaj7OjJ3derikdVAw hrEQwfR8bSADsDYn5FWIgk3 YzFYFwd3KlNyMdcaLlSYXmD FQiHNIbeW79MAD2zFvniKio ntEuWH0hESYpurLkYYGxOSL hyY4oDDdouxYlYNOpqaZ1l9 T3SLhhUMLyyaYsIyagXIP8o sRdnzG7pRUuS5wewfntHEfw QZLaf2QvoL0qwJPLrBIui1E phHCcoTAZyDQqCA8ldoThOK 7sMJM2OAwoLOQXINXkUHkcB EAyXLV1KEagWbprLAX6qnOd QPImr3ZcNRynN7czY77jnKb qrJu6gUNczXtdzGRicYKwWG HmgoX8s0X3JQBnk3WpegziL HBsYWluXGYyXGZzMjJcbGFu ZzEwMzNcaGljaFxmMlxkYmN bUXEjDUzkF7oqRhOsEbPuQk pfHYF3qP== Gross assessment was [facility] performed at ([facility], code = 2777) Department of Pathology, [address] [place] [address], Technical component [facility] was performed at ([facility], code = 2778) Department of Pathology, [address] [place] [address], Professional component [facility] was performed at ([facility], code = 2779) Department of Pathology, [address] [place] [address], [place] [address], [facility] [id number] 07:24:40 Test Item Value Reference Range Interpretation Comments Case Report (test code Surgical Pathology = 104) Report Case: [id number] Authorizing Provider: Stuart Wylie MD Collected: 09/09/2022 05:13 PM Ordering Location: [facility] Received: 09/10/2022 11:48 AM SERVICES Pathologist: Ada Locke MD Specimen: Mass, Left renal mass DIAGNOSIS (test code = [id number] 3220) uZzEwMzNcZnRuYmpcdWMxIH tccnRmMVxlcGljOTYwMlxhb yZzULEdhQGcJ6UclhfvBMid PY2lIV6grLmbeWMbrACaBTZ sUuAqs0rur108fEYvv6zsUU HGpfjcuWs5gDkwS56vi0L1O wbhT89xaWLmMWS9SCHpKMXf kKZgERUhEJS7TIWreHQwK1g sQCNlRO9iromzHQlzEZogSB HduFE8XUPizKEvZ0IxAJHuK ZpzEOTumtq9UjVyMj2ueDPg eTcyMFxwYXJkXHBsYWluXGZ fVmMuA9tPWaYQYMGSGNEBCP ZGHIATKZGNCK3XDGeXUMJJV 17JDucfASOseFBqLD6hE7vA WSYrS8PMRRWGOR8NLGOWELw ZZDTCUbVSVz8KNFrzT2yCZ2 bLHCUgK9TVMVPqO1mpCPDsn NWlHH7hNJCFO2BlZ2srLCvz FJ65WZFDWWyWZlGREXXERPO ETg3RXlJNTG6YVmFAK46vUD Kqdns7TDXmEJQRBX1TMmOIP U0DRNLDLYIPPCzDOQ1ERZpa TUDozSCeOT3fXd2uN2MNY47 NQVRPSUQgRkVBVFVSRVMgSU RFTlRJRklFRFxwYXJcdGFiI B2xXq1jInhLMqLFGRGqBiPZ VFVSRVMgSURFTlRJRklFRFx hOYZnrYDqMZ9vDn0mDXmPTZ yQGeJIH1JBXKSfUM8RKOVMR 04gSURFTlRJRklFRFxwYXJc kRSqXN1xLRPOU8ItYYHFBRL oBYpENISRJhSUE7dSUQQPJB QSOylJS4KUKD7UGwvPOaywQ HKckLFpHD3dG3LUMrKkVa3M ZD7PJ4RIRDDRFOWxV7uYOqO BAXzJPAibLgACTOTWK0eXNb 5CFIGpS6uJTBYMHUtULMJmm c97QRT8QbLdp9T4NMH9RKZb ZCXqt8knQOWnyLEfSzUkNvU cZnRuYmpcdWMxXGRlZmYwe1 yse568aCSjh4gqXDXvJeM4i RKgGWCaqUGeD918WPTfLRxi q9ctk3ZlBLPceQBox8A2FWU KyhgtzHa3cFxyD38wj1K1Ei swU9wtUIVwXRCuS7OnXH1uB MVrZpd1EMF5KEH7DUCjHCWh Q0KnTS1tAVTjfUIbMPz2f5e tbIcwNASuIVM3l5moNJevln MvQP5sxi9dkUx1p5mkbrKxJ SRqCNJofTYYSHNcP5HubNvd Gk8ziHu9mZkwGrgvEUL4Uuh 5GR0hef06bnd5uYasISUyck ryWrW9PGulHBJtdkugXBa1T IqbSCPgtMQ0NTQtrKEuK0In GVIxHG5kprb7UMG7DXgyKSV dZuU9QBQcsUGvCNWllEsgNG tem053JTZ9JxOrEU0cL8Amh 8Z7lU7hwSUxPXMzgGFsKgMx CKIpuu6qiFRfBWwfs3SfXGI 1keT7aFZwhIFcICJhWqU2WS wmMB5cmu84SUXpMAV0li6ci HIxiWpxykMfpHDlXCuqU7Lt ZSUnu644BOPkM3OfPWXmp1L 8ujFbRoQcUGDjyZF1uhA2JL QpHG4vgmoxr8fpGDptHRapM SRzluK7niS5RHVvuSQrK7Wm yC5bLKDvAC7ynoduz0svGMI 8BFloROWxQQL9WqXoFPKou0 Ubrix1HrJfg9DtzYCtGLznV 40dx450VLJxakOmP3gcrZPm plqbcEBefyxlUYgbkvQ7XFA tLMoknibdSRBmSEfeY1lgUz StIWTacRpuKHsue0PaQMYwU HMyAkHrpIIsFAJeAwo3IZNp qONtQXWqBmEvU8rbpxisCwV ILXFyd5viG5gzwWDVrTDcU7 QgUGhvbmUgTGluZTogNzEzL Wy5TX06HlOrQQVqlo29 SYNOPTIC REPORT (test KIDNEY: code = 5765) NephrectomyKIDNEY: NEPHRECTOMY, PARTIAL OR RADICAL - All Yguasibfd6jx Edition - Protocol posted: 02/11/2021 SPECIMEN Procedure: [...] Rare sclerotic glomeruli CPT Code(s) (test code p1aapILxOPIcoIB0IsZcOFD = 3357) wo7nqx5XoqTCsqEYjPHuvhI OrtrRbuf60oGC6jC94GF3qZ JYaYqT4DGVvpiF0Cxq6XWYa BXEttJWlF846r4ojv1xtilA arRI0eQprNTCysvvfUeP1BT rdEPTcppddDJh9ORgyDODhy AZ9HWHphAVlZ2ZuNEVqRO5z lby4VCC7UOxiHZOzRjV1SLH yhOCxYDMlpXldYVfdy267TY D9TxBuDJPzjvQgvUftjY1oS gJtTRI8MZXjT7wrAQLqIJmw NDJccGFyfQ== CLINICAL HISTORY (test o3hqxMSfGNIndTY6WlJhTNR code = 3356) mn7ndk3PgvNWnsQIbZYhhmX GlhuVoxg75eMX7wP14TB7tX TPqVvV0IIHnmbX8Hhb8QIOm AXOlfSAdL719b0puc3ezbaB diWX2eCnjCZKxlalcQfM0ZX taWFQvllkgGBe1YHpgQUQhs NW8NUAodHWfR8PcRWBxRQ2z bui3LHM2GAddXAMmNlB0OXL drCXwIVImdSwrJUsda239CO R8FrByKKBzdhDsaQuxqI8sG gMsYRNZBY8xfTXrTPIsGDUi cn0= SPECIMEN SOURCE (test j2yhfFOiLTDfiUD5JvUsHIX code = 3377) jy0utw2QgvPOzhGHvYGjxsQ UaxzIjri23vEN5jO66JJ2bP NPlHlQ8VHSfnjR6Why5EVYw ZEDhzKOvO499e2aaa0qckdD nuNL2xBdkHKBvrbgdLkA3AG uxJAGtmsorIBk9HOgwCQPyl FE9TRMvbZZxD9HzLHBwXJ2q vax4WVA1AWoeCYRrTiZ1KIZ jgSQiJVKpaRycEMgkl176KE H7FlOuCMSuxxKelOjqmV1rA xXiTYITDmKmR3cvtxR5NXLe COM8IEJxXWPtETKles6= GROSS DESCRIPTION q7lhwOZtIPDgeVN5PxPfEVZ (test code = es6rdr5PnhOJbgMQlUEfseQ [id number]) ApqiTxzi65cZR3gY47FM7oO TNcVhP0OKAtbtN0Tek3OIMi FMFdgWYsO611o0kym4opasG kyAE0IQBaQPEiK0ZcEY7eIA TerVMhG01oaOLbEXA9LYQnR STtiLIjLSZxDBT4MVXeqZAi X6soNOUgNM6lwyvmWLprKFx dEVAumHS2AKJqfIUiO8AgYR XkCJzaHZDudcn1GiLiQq7cb RJixWmqPXvwWBUon3iaMNGy dKOfMDC3UNzjdNUnUICkALD vOAo8UEGcREttaLWaPM1piD eeQevndFmdj3JwsTFoCHzqD LZmCDKpEXwiXAPzK1CUPWTa CbsrKiT5IlJbVOk8SWjbN3V KRQXkRIHzVjE3YrzmKtF1AC u2DOIQIr0aEvV4QMMlFFl8G CF6IPKpYEynhICjBQbhTtpt UCmsQEEjcDOfGXqgqiK3LUB jMEbaWWEfIdMbHW2rHACgll 4iwWPvGZHxUrXbIhIdIBe1Q HHeJkVxe9dhQQisVvWcVXRd m5w2pZT6qXBntAO2pAIryXb hFG9wuFXlPG9DZoIoweZyD4 UrBQGueHmoJaRbDFl1S5zxR pAdwBWcnUMbHF7wuVPkQTOf PRMfRMw0IAZaQYGtHey9PMt nPGEbFJJwBVX7PQHvM5LfJG lmORYxBXLmMH48USpuCk52K LfvYn39JOcxYmFaT20lpHMa SI5uTVCyPQGrnzJrB2UlpRA soXnxxBZmTRStyuVqbP9rpZ F7yMKgARQcp2tmvxsbxZXpv aMxLP2umY58VX8xUORocdop KCKgyfvuYIOlsRVdHD5lYPj mSX1uYZmbMd83IDloZMCviK QaUMYcZ2Bcx81cqsiwbrS7T IBfkqGqRDmjtAakA3lzV9Sm a5XltBIvYTC5GB3bmBfbgjZ nq1LpoVa8NLeppM8nankrE1 cbVD7kc8Vpf9umR0cfaNQuW YGmsf16kZ2brOVppET1gEKo u1BdNWYuuCczHSJsIHNfPJR nuUFsVCxdi6HbY0DwEGDcXR Z3FDZrVUC1FJCcMCcjWFQaM TUofTEsBCQ0pIMtnpmquLpp AAIwrkTpF0z0gNRrYJ5hfhd uuzUvdxAdB29dJMDqk4k2gB pbGLLgMMZsrAUvOiX1gJUmF 5Euf8ArEVcpaURbahXuyqZh dw9dh9j2LJZjubPiopZtSUX vIHRoZSBraWRuZXkuICBUaG OqBGAfkdRngQ5cxHBbYCPiO S5bqoTouJ2mfeRdeVPrTMZi UV2skWVnOEXpylSneF3tTyB pJGsmPK6bj6GxxQPjh0MhgJ g5yRZvLCVjyMsjCIs8HPdzO ADko2OjjUSyUPLhWBTkEc4w xPjuASeuWFDeUN8rXZXlQRI 9KBceFRCuNfi6NFezYPZcXT 6kwFvxTKecxJCiV8pwSORdk rLWxHBixbOZOUEtiEuoZ5Gs cmluZXBocmljIGZhdCBtYXJ gbZ1poSNtFOEeerSpFGBhAH WkSObrRTKSHJMzeOGxp5tod Szwj9VplUYsWM99KYNtoJCr ATV0CS2iiEsdOCX5 MICROSCOPIC l9zktVMcHNYakHU8YfPwCOD DESCRIPTION (test code cz4lwd0XldXCowKUkXUdzzW = 3371) IxviFjwy15fWX0eP55JD4nJ OZbHhK2UPYageB9Bnf5GVZd AXSieCNxM515f9ecq6tsbeM fvZP8aDxbKUYdqtvcErK4KO bfKUShxojnJJt8PXwiWMZwq AP5ZQMesNPtJ9TyOVAtNG0x jia2QFE5JQfgLLFpWeF1GNE yaYKtZNHmiQybHSuno365AY F9IkTpZYMzxmQxuZffzP6hE dVoNTXBMfG3NNunmqLeGYAj r5MpKOWzo6q8cCEriTVjz5N psYR8ARThf219nq2sOXDlsj HhbPleCLW4PBvlTTmmMCxyq XWslRRtgEMsJYAvGY1aP6A9 oNRfUqVTuLn4uYGjAYHoBBM aqTFus6RjtSmyXUYmyqKxR1 k4iOXqBS8rbjumuoE9UIDjR PK1WQ4hluSdMGpdGYNsMRSh bHMpLCBhbmQgdGhlIHZlcnk iKx7oVBiivRVtUaS6pcY2cQ rlQF1xygouwf1bXBFntv5= SPECIAL STUDIES (test o2prmHFqCTSlc7ekQNNnlCK code = 3376) uZzEwMzNcZnRuYmpcdWMxIH vrdtLpHIwve3MyB1DsVbVeI FxhbnNpXGRlZmxhbmcxMDMz LWI5vwXqJONpCAnzIIOeXZd qWj7qoTOwlZauJzUiGWXnt0 okuiXZzybpoYt1t8woNLTxT nA4eEIkWMsoI6wydnOatCPu G7YpuOKkfEn3e4ffUwNoHuV 8bPNqIAmsC8yciyAqeEJsCJ DaTVb3gL37KTVxcF6trPNiF DilomTzQoU0ILfcFYCwOtM7 LYGqoZQrBJTlY5obSTQwKTb tRTZeQBiagFCjEXZ7tOkco8 X9rBBvkHSaaRypHlSaGuJgA oVXx9HjEXl1xNdkK8XyRZGb OuQ8lTGkTPNaBPdiUYAjHDF isxN0pQnvsmJqf96lcGEqZH YwXGZzMjBcbGkwXHJpMCBDb 2HpgJvbVZG1oCt6iUwwHuur NIS0Jpf0BI3pan22hfa1sRp mFSNidpgtBzN4NEzbBZVtwg fxIEd4JHvkZWKeyYK5DZLfq WTbN6KoKWKxKI5cheh4CRP7 OGzcYYHkDgI5LPLldYQqUSO qzFxpETsrc997KLD1LaQzMU 1bG1Klr5W7iJ3otFXhDLDlw VNtPzBeYGVklt1ppYMmFUju i5GyKKL1bfN5tIKlbUKqWWD nCL95Tskab0EvAlgdi9BbD6 6hsRK0DTsra9xxJR6mJrI7r cDnFWcxf7rdyE2nKqQ3RVcp GC9dWH9qRDRfrJ1qjejlZUM nYnJkcmhlYWRccGdicmRyZm 9yfCkvQTX6OBldS4whlL6iH aF8QTjcT9olfL7lUHv2YVqr nIR1IWEypL8mET4xkjgfv3z kMLwsHBabLFBmllD1nxV3LF VnkFAqQ7AapS0fJGQrPI0hj vjnb6ymGNB1MIpyTATpNDQ1 MsJzMHVhi2Yjnul2MmZav9S bbEQvXPtdV50zf874NGIimj FxO5ewsYSnoscuwJTpscuaR SpwsxP5TVWjVUVlASvcGUHp XGZzMjJcbGFuZzEwMzNcaGl jaFxmMVxkYmNoXGYxXGxvY2 ghUqYcE5AhCVQnOeWtIUoiV ExidRJjjTAipID8mI6xRW8f YLJmcTSmB7YhNFXcccSpnUH eOOR0pBQviJIpKU7uDPawpF Azv3brj5QrJ9qsgZwgdMC3R M2oGNYmIBQaRAxia6AgaD1v LlxwbGFpblxmMVxmczIyXGx oufboYBMqWXmgT0zfOaRcTW VurInyGNger3JsBOMkDTCyN xumktEyGZs3alKmLWRbxgfk TSWbxRfnxX7xXyNuRaXzTja hOQ2vOVOmH2jslVUqQFDkZB KtW9qoOlSrjE4jkMcgAFzpQ lFiMtLcNtLZd718sp3dHLOp lDUtonFCzXTxaZ1aYMaiUZr tKRedcJHzLIckv6vpZIDfv5 n5pZTnCPLvcsOit0ikIMgcx gZbZDRysKSmwCFuWAUnu85o VIuzsPukfBsnIWIyh8NfnRx at4HnCkQcSYaey0GqB45hpT JvbCBzbGlkZXMgcnVuIGFsb 21qd3wmHJPtQwX3nURsnPL0 lOZzjZBda6VkhDhgAQQuv8p dYLAcyn3klxqlqNKwu6ApwE 5pbmcuIEludGVybmFsIHBvc 0c1nMEnMZEsJFDsJOxmeXs4 EKLip122na6vnjO0rOXuZCS 2YWlsYWJsZSBhcmUgZXZhbH VhdGVkXHBsYWluXGYxXGZzM jJcbGFuZzEwMzNcaGljaFxm KAswEnAvDZIoTBopH1nyXgX fG6PfMFOpMnTcfLEtG4dvoX FyXHBsYWluXGYxXGZzMjJcb GFuZzEwMzNcaGljaFxmMVxk QqGgJEZrGOniE5bqOyDzV1G yXGZzMjIgIFxwbGFpblxmMV xmczIyXGxhbmcxMDMzXGhpY 1ecPhImEJVahSczMKuyb7Dh PHHhUWMtIjfbunOiBCm0hgY oXHBhclxwbGFpblxmMVxmcz InSZghkyvmSCPjLFxnP3nnC uIcZROzqVoaJGjkb1QkBDVz OKZwApcggfQxEOifuPXmz8q xn9LmS1nfhHehuBG7KUFdS0 uivBYkeID6ASR9hT0fLHbpe vOfPXNpe0WxFPMhKWSqYqI2 vJ6qHPY1KsWAqUsfNPFfBGj uXGYxXGZzMjJcbGFuZzEwMz NcaGljaFxmMVxkYmNoXGYxX QktK9qqIaHtH2OsTACnUrHu qXhvXNegHKy5LuyxuJXxsua mMVxmczIyXGxhbmcxMDMzXG itK2jjAuMuOWJrnOruUMckk 2NoXGYxXGNmMlxmczIyIHMg QWZnvEWflKEZAB32KHEvEOA ygSwyiC1xoQHVNVZrznK4n8 T2CCpaQRGxLMs3NQczbxYaF MAwdM2gVOOqJX7eGAq3qrZx FGKaw2FkVX3oDYUauDEnWHY 4IABvn7XxV8Ncs1MsJBZcQR Zofa8ecdExKtQKtAYlTYYxi r70BLAdNL9wJ8baMJJoRYIp crAqbYMwy6GdQJQqiST3hLD kIS0PZqXDy75iGKTyDXWPqd JqQPSytEutaYP7cxZ3xX9aI iBUaGUgRkRBIGhhcyBkZXRl tp7tmtEzCXLsEKHyu9LhlEL ziAVuzgEsQ8Rnu7IbEQWwom 56CZlenVPirz14EA3eM2Igu 2MrpY6mYTeuZKGfq5XsjJPr xMIoMEPan1WhF3twnkesDCu puHVtlT2pPINjFId9DMAno1 RdBRQzv7VvEbSuldQpMFCjW TMlSGQvcU03IHS5tHodaPwd keWqUU0aLYVhduLnXSQvQEM atM8eZGpbtzXqSLPcswK7e3 Y2ADnlBHNzztKjAtauQGX2k fFlxnD2ySMgJ9wjohmvCDxz LNUvy6WbrF0dmGZVlUGcy9U ekAVvyCIVrIXuVE7eosJwDZ 9fHVF6HNrpKSQVHGPcSOqiW CQgTFA6DDxrRzbnPJG6udXr TUBnp2BjZLgzN8ipW72fqYh dkSu8mKQkwBrljXHipTZyAM FjphN6w1D8LXZfh1OzjfhmZ HBsYWluXGYyXGZzMjJcbGFu ZzEwMzNcaGljaFxmMlxkYmN gDXLkVWklC3qxSgLvKzVdQw fmFYU8nF== Gross assessment was [facility] performed at ([facility], code = 2777) Department of Pathology, [address] [place] [address], Technical component [facility] was performed at ([facility], code = 2778) Department of Pathology, [address] [place] [address], Professional component [facility] was performed at ([facility], code = 2779) Department of Pathology, [address] [place] [address], [facility] [id number] 07:24:40Surgical Pathology Report Case: [id number] Authorizing Provider: Stuart Wylie MD Collected: 09/09/2022 05:13 PM Ordering Location: [facility] Received: 09/10/2022 11:48 AM SERVICES [...] SCLEROTIC GLOMERULI Signing Pathologist Direct Phone Line: [phone] signed by Ada Locke MD on 09/28/2022 at 7:24 AMPreliminary result electronically signed by Ada Locke MD on 09/25/2022 at 3:11 PMKIDNEY: NephrectomyKIDNEY: NEPHRECTOMY, PARTIAL OR RADICAL - All Eivkmolcn0nk Edition - Protocol posted: 02/11/2021PECIMEN Procedure: Partial [...] is the managing physician's responsibility to establish thefinal pathologic stage based upon all pertinent information, including but potentially not limited to this pathology report. Primary Tumor (pT): pT1b Regional Lymph Nodes (pN): pN not assigned (no nodes submitted or found) ADDITIONAL FINDINGS Additional Findings in Nonneoplastic Kidney: Rare scleroticglomeruli [id number] massA. Kidney, left, massA. Mass.Received fresh, labeled with the patient's name, MRN and "left renal mass" is a 65 g, 4.6 x 3.5 x 2.5 cm is an intact partial nephrectomy witha significant amount of perinephric fat (8.0 x [...] A1-A17.Ink Code: Blue: Parenchymal marginBlack Capsule/perinephric fat marginMARY Nunn 7 was performed with appropriate control, and [...] available are evaluated Immunohistochemistry technical testing was performedat [facility], Path[facility] Laboratory where it was developed and its performancecharacteristics were determined. It has not been cleared or approved by the U.S. Food and Drug Admini stration. The FDA has determined that such clearance or approval is not necessary. The test is used for clinical purposes. It should not be regarded as investigational or for research. This laboratory is certified under the Clinical Laboratory Improvement Amendments of 1988 (CLIA-88) as qualified to perform high complexity clinical laboratory testing.[facility], Department of Pathology, [address] [place] [address], [facility], [address] [place] [address], [facility], Department of Pathology, [address] [place] [address], AVBXB METABOLIC [id number] 06:27:23 Test Item Value Reference Range Interpretation [...] not appl icable for dialysis patien ts [employer] ID - REYNA GCBC W/PLT COUNT & AUTO [id number] 06:20:00 Test Item Value Reference Range Interpretation [...] = 2801) CBC W/PLT COUNT & AUTO [id number] 22:12:52 Test Item Value Reference Range Interpretation [...] PERCENT (BEAKER) (test code = 2801) POC-Glucose [id number] 16:16:42 Test Item Value Reference Range Interpretation Comments POC-Glucose Meter (test 172 mg/dL 70-110 H : TE STED AT [facility] code = 1538) [address] [place] [address], [facility] 30: [employer]/Techni david ID = [id number] for GAIL RETANAA Lab Interpretation (test Abnormal code = 07339-0) [facility]-Glucose [id number] 16:16:42 Test Item Value Reference Range Interpretation Comments POC-Glucose Meter (test 172 mg/dL 70-110 H : TE STED AT [facility] code = 1538) [address] [place] [address], [facility] 30: [employer]iller/Techni david ID = [id number] for GAIL RETANAA Lab Interpretation (test Abnormal code = 57212-0) [facility]-Glucose [id number] 16:16:42 Test Item Value Reference Range Interpretation Comments POC-Glucose Meter (test 172 mg/dL 70-110 H : TE STED AT [facility] code = 1538) [address] [place] [address], [facility] 30: [employer]iller/Techni david ID = [id number] for GAIL RETANAA Lab Interpretation (test Abnormal code = 37739-3) [facility]-Glucose [id number] 16:16:42 Test Item Value Reference Range Interpretation Comments POC-Glucose Meter (test 172 mg/dL 70-110 H : TE STED AT [facility] code = 1538) [address] [place] [address], 770 30: [employer]/Techni david ID = [id number] for LAINEY, KEYAIRA Lab Interpretation (test Abnormal code = 72423-5) [facility] [id number] 16:16:42 Test Item Value Reference Range Interpretation Comments POC-Glucose Meter (test 172 mg/dL 70-110 H : TE STED AT [facility] code = 1538) [address] [facility], 770 30: [employer]/Techni david ID = [id number] for LAINEY KEYAIRA Lab Interpretation (test Abnormal code = 01835-0) [facility] [id number] 16:16:42 Test Item Value Reference Range Interpretation Comments POC-Glucose Meter (test 172 mg/dL 70-110 H : TE STED AT [facility] code = 1538) [address] [facility], 770 30: [employer]/Techni david ID = [id number] for LAINEY KEYAIRA Lab Interpretation (test Abnormal code = 97735-4) [facility]-GLUCOSE [id number] 16:16:42 Test Item Value Reference Range Interpretation Comments POC-GLUCOSE METER 172 mg/dL 70-110 H : TESTED A T [facility] 6720 (BEAKER) (test code = [facility], 153) [address]: [employer]iller/Techni david ID = [id number] for DA VIS, KEYAIRA POCT-GLUCOSE [id number] 12:05:01 Test Item Value Reference Range Interpretation Comments POC-GLUCOSE METER 209 mg/dL 70-110 H : TESTED A T [facility] 6720 (BEAKER) (test code = [facility], 153) [address]: [employer]iller/Techni david ID = [id number] for DA VIS, KEYAIRA POCT-GLUCOSE [id number] 08:37:28 Test Item Value Reference Range Interpretation Comments POC-GLUCOSE METER 213 mg/dL 70-110 H : TESTED A T [facility] 6720 (BEAKER) (test code = [facility], 153) [address]: [employer]iller/Techni david ID = [id number] for DA VIS, KEYAIRA BASIC METABOLIC [id number] 06:35:17 Test Item Value Reference Range Interpretation [...] eGFR (test code = mL/min/1.73 values Stage D escription 1092) sq m Result G1 Leslye l [...] not appl icable for dialysis patien ts [employer] ID - RAKAN WHEMOGLOBIN AND [id number] 05:31:55 Test Item Value Reference Range Interpretation Comments HEMOGLOBIN (BEAKER) (test code = 12.1 GM/DL 11.2-15.7 410) HEMATOCRIT (BEAKER) (test code = 34.9 % 34.1-44.9 411) [employer] ID - [id number]-GLUCOSE [id number] 19:34:37 Test Item Value Reference Range Interpretation Comments POC-GLUCOSE METER 185 mg/dL 70-110 H : TESTED A T [facility] 6720 (BEAKER) (test code = [place], 1538) [address]: [employer] Driller/Techni david ID = [id number] for SA CO KYRIE BASIC METABOLIC [id number] 19:07:55 Test Item Value Reference Range Interpretation [...] G3b Moderately to s everely 30-44 G4 Sever ly decreased 15-29 G5 Kidney failure <15Repo rted eGFR is based on the CKD-EPI 2020 equation t hat does not use a race coefficientEsti mated GFR is not as accur ate as Creatinine Milana alberto in predicting glom erular filtration rate . Estimated GFR is not appl icable for dialysis patien ts [employer] ID - ADMINHEMOGLOBIN AND [id number] 18:54:51 Test Item Value Reference Range Interpretation Comments HEMOGLOBIN (BEAKER) (test code = 13.3 GM/DL 11.2-15.7 410) HEMATOCRIT (BEAKER) (test code = 38.4 % 34.1-44.9 411) [employer] ID - [id number] 12:24:00 Test Item Value Reference Range Interpretation Comments CROSSMATCH (test code = 2264) COMPATIBLE Unit ABO (test code = O Pos 0117623) UNIT NUMBER (test code = [id number] 934-0) Status (test code = 7670038) READY Blood Bank Product (test code RED BLOOD CELLS = 2263) PRODUCT CODE (test code = P0035L89 933-2) [facility] [id number] 12:24:00 Test Item Value Reference Range Interpretation Comments CROSSMATCH (test code = 2264) COMPATIBLE Unit ABO (test code = O Pos 4606449) UNIT NUMBER (test code = [id number] 934-0) Status (test code = 3609417) READY Blood Bank Product (test code RED BLOOD CELLS = 2263) PRODUCT CODE (test code = [id number] 933-2) [facility]2023-01-26 12:24:00 Test Item Value Reference Range Interpretation Comments CROSSMATCH (test code = 2264) COMPATIBLE Unit ABO (test code = O Pos 3235710) UNIT NUMBER (test code = [id number] 934-0) Status (test code = 2279041) READY Blood Bank Product (test code RED BLOOD CELLS = 2263) PRODUCT CODE (test code = [id number] 933-2) [facility]2023-01-26 12:24:00 Test Item Value Reference Range Interpretation Comments CROSSMATCH (test code = 2264) COMPATIBLE Unit ABO (test code = O Pos 7784494) UNIT NUMBER (test code = [id number] 934-0) Status (test code = 4381550) READY Blood Bank Product (test code RED BLOOD CELLS = 2263) PRODUCT CODE (test code = [id number] 933-2) [facility]2023-01-26 12:24:00 Test Item Value Reference Range Interpretation Comments CROSSMATCH (test code = 2264) COMPATIBLE Unit ABO (test code = O Pos 0808454) UNIT NUMBER (test code = [id number] 934-0) Status (test code = 1301877) READY Blood Bank Product (test code RED BLOOD CELLS = 2263) PRODUCT CODE (test code = B2035E81 933-2) [facility]2023-01-26 12:24:00 Test Item Value Reference Range Interpretation Comments CROSSMATCH (test code = 2264) COMPATIBLE Unit ABO (test code = O Pos 5037697) UNIT NUMBER (test code = [id number] 934-0) Status (test code = 5255496) READY Blood Bank Product (test code RED BLOOD CELLS = 2263) PRODUCT CODE (test code = G4437I27 933-2) [facility] [id number] 11:32:46 Test Item Value Reference Range Interpretation Comments POC-GLUCOSE METER 137 mg/dL 70-110 H : TESTED A T [facility] 6720 (BEAKER) (test code = [place], 1538) [address]: [employer] Driller/Techni david ID = [id number] for LUIS DANIEL MEDINA POCT [id number] 14:43:44 Test Item Value Reference Range Interpretation Comments POCT Creatinine (test code = 0.7 mg/dL 0.5-1.9 [id number]) Lab Interpretation (test code = Normal 08774-0) [facility]
[2023-05-02 14:18] LABS: SARS-CoV-2 Antigen Rapid Res Positive (Negative)
--- NOTE | 2023-05-02 14:32 | ER ---
Nurse's Notes [facility] Name: Katya Hinojosa Age: 73 yrs Sex: Female : 1950 Arrival Date: 05/02/2023 Time: 12:31 Bed 9 Private MD: Mike Zamudio Diagnosis: SARS-associated coronavirus as the cause of diseases classified elsewhere;Viral infection, unspecified;Acute pharyngitis, unspecified;Acute bronchitis, unspecified Presentation: 05/02 13:15 Chief complaint: Patient states: c/o headache, sore throat, fever, chills, body aches me1 since Tuesday. Coronavirus screen: Vaccine status: Patient reports receiving the 2nd dose of the covid vaccine. chills, congestion, cough unrelated to allergies, fatigue, fever, headache, muscle pain, sore throat. Ebola Screen: No symptoms or risks identified at this time. Initial Sepsis Screen: Does the patient meet any 2 criteria? No. Patient's initial sepsis screen is negative. Does the patient have a suspected source of infection? Yes: Productive cough/pneumonia. Risk Assessment: Do you want to hurt yourself or someone else? Patient reports no desire to harm self or others. Onset of symptoms was April 29, 2023. 13:15 Method Of Arrival: Ambulatory [facility] 13:15 Acuity: AMAYA 4 me1 Triage Assessment: 14:46 General: Appears in no apparent distress. comfortable. General: Behavior is calm, db cooperative. Pain: Complains of pain in head. EENT: Reports SORE THROAT. Historical: - Allergies: 13:19 No Known Allergies; me1 - PMHx: 13:19 Diabetes - NIDDM; High Cholesterol; Hypertension; Hypothyroidism; me1 - PSHx: 13:19 kidney surgery; me1 - Immunization history:: Adult Immunizations up to date. - Social history:: Smoking status: Patient denies any tobacco usage or history of. - Family history:: not pertinent. Screenin:40 [facility] ED Fall Risk Assessment (Adult) History of falling in the last 3 months, db including since admission No falls in past 3 months (0 pts) Confusion or Disorientation No (0 pts) Intoxicated or Sedated No (0 pts) Impaired Gait No (0 pts) Mobility Assist Device Used No (0 pt) Altered Elimination No (0 pt) Score/Fall Risk Level 0 - 2 = Low Risk Oriented to surroundings, Maintained a safe environment. Abuse screen: Denies threats or abuse. Denies injuries from another. Nutritional screening: No deficits noted. Tuberculosis screening: No symptoms or risk factors identified. Assessment: 13:39 Reassessment: Patient appears in no apparent distress at this time. Patient and/or db family updated on plan of care and expected duration. Pain level reassessed. Patient is alert, oriented x 3, equal unlabored respirations, skin warm/dry/pink. General: Appears in no apparent distress. comfortable, Behavior is calm, cooperative. Pain: Complains of pain in head. Neuro: Level of Consciousness is awake, alert, obeys commands, Oriented to person, place, time, situation. Respiratory: Airway is patent Respiratory effort is even, unlabored, Respiratory pattern is regular, symmetrical. GI: Abdomen is flat. 14:45 Reassessment: Patient appears in no apparent distress at this time. Patient and/or db family updated on plan of care and expected duration. Pain level reassessed. Patient is alert, oriented x 3, equal unlabored respirations, skin warm/dry/pink. Vital Signs: 13:15 BP 122 / 68; Pulse 68; Resp 18; Temp 98.3(O); Pulse Ox 99% on R/A; Weight 84.82 kg; me1 Height 5 ft. 5 in. ; 14:45 BP 122 / 68; Pulse 68; Resp 16; Pulse Ox 100% on R/A; db 13:15 Body Mass Index 31.12 (84.82 kg, 165.1 cm) me1 [place] Coma Score: 14:33 Eye Response: spontaneous(4). Motor Response: obeys commands(6). Verbal Response: cp3 oriented(5). Total: 15. ED Course: 12:34 Patient arrived in ED. mr 12:34 Mike Zamudio DO is Private Physician. mr 12:35 [facility]-C [facility] snw 12:35 Santosh Lo DO is Attending Physician. snw 13:19 Triage completed. me1 13:19 Arm band placed on Patient placed in waiting room. me1 13:24 Attending Physician role handed off by Santosh Lo DO cp3 13:24 Vicky Kaplan MD is Attending Physician. cp3 13:32 Aparna Fischer, RN is Primary Nurse. db 13:40 COVID swab sent to lab. Strep swab sent to lab. db 14:29 Jayesh Reid MD is Referral Physician. cp3 14:45 Patient has correct armband on for positive identification. Call light in reach. Side db rails up X 1. Provided Education on: DISCHARGE. 14:45 No provider procedures requiring assistance completed. Patient did not have IV access db during this emergency room visit. Administered Medications: No medications were administered Medication: 14:45 VIS not applicable for this client. db Outcome: 14:31 Discharge ordered by . cp3 14:45 Discharged to home ambulatory, db 14:45 Condition: stable 14:45 Discharge instructions given to patient, Instructed on discharge instructions, follow up and referral plans. Prescriptions given X 2, 14:46 Patient left the ED. db Signatures: Keyona Moreno, OUTSIDE SALES EXECUTIVE-C OUTSIDE SALES EXECUTIVE-Csnw Vicky Kaplan MD MD 3 [facility] mr Aparna Fischer, RN RN db Serenity Skinner, RN RN me1
--- NOTE | 2023-05-02 14:32 | EDPHYS ---
Physician Documentation [facility] Name: Katya Hinojosa Age: 73 yrs Sex: Female : 1950 Arrival Date: 05/02/2023 Time: 12:31 Bed 9 Private MD: Robb [facility] ED Physician Vicky Kaplan HPI: 05/02 14:33 This 73 yrs old Female presents to ER via Ambulatory with complaints of cp3 Headache, Sore Throat. 14:33 Patient is a 73-year-old female with a history of diabetes, high cholesterol, cp3 hypertension, hypothyroidism who presents to the ED secondary to moderate sore throat, hacking cough and frontal headache that started roughly 3 days ago. Patient denies fever, chills. Patient endorses fatigue. Historical: - Allergies: 13:19 No Known Allergies; me1 - PMHx: 13:19 Diabetes - NIDDM; High Cholesterol; Hypertension; Hypothyroidism; me1 - PSHx: 13:19 kidney surgery; me1 - Immunization history:: Adult Immunizations up to date. - Social history:: Smoking status: Patient denies any tobacco usage or history of. - Family history:: not pertinent. ROS: 14:33 Constitutional: Positive for body aches, fatigue, cp3 14:33 ENT: Positive for sore throat, 14:33 Neck: Negative for injury, pain, and swelling, Cardiovascular: Negative for chest pain, cp3 palpitations, and edema, Respiratory: Negative for shortness of breath, cough, wheezing, and pleuritic chest pain, Abdomen/GI: Negative for abdominal pain, nausea, vomiting, diarrhea, and constipation, MS/Extremity: Negative for injury and deformity, Skin: Negative for injury, rash, and discoloration, Neuro: Negative for headache, weakness, numbness, tingling, and seizure, Psych: Negative for depression, anxiety, suicide ideation, homicidal ideation, and hallucinations, Allergy/Immunology: Negative for hives, rash, and allergies, Endocrine: Negative for neck swelling, polydipsia, polyuria, polyphagia, and marked weight changes, Hematologic/Lymphatic: Negative for swollen nodes, abnormal bleeding, and unusual bruising, Exam: 14:33 Constitutional: This is a well developed, well nourished patient who is awake, alert, cp3 and in no acute distress. Head/Face: Normocephalic, atraumatic. Eyes: Pupils equal round and reactive to light, extra-ocular motions intact. Lids and lashes normal. Conjunctiva and sclera are non-icteric and not injected. Cornea within normal limits. Periorbital areas with no swelling, redness, or edema. ENT: Nares patent. No nasal discharge, no septal abnormalities noted. Tympanic membranes are normal and external auditory canals are clear. Oropharynx with no redness, swelling, or masses, exudates, or evidence of obstruction, uvula midline. Mucous membranes moist. Neck: Trachea midline, no thyromegaly or masses palpated, and no cervical lymphadenopathy. Supple, full range of motion without nuchal rigidity, or vertebral point tenderness. No Meningismus. Chest/axilla: Normal chest wall appearance and motion. Nontender with no deformity. No lesions are appreciated. Cardiovascular: Regular rate and rhythm with a normal S1 and S2. No gallops, murmurs, or rubs. Normal PMI, no JVD. No pulse deficits. Respiratory: Lungs have equal breath sounds bilaterally, clear to auscultation and percussion. No rales, rhonchi or wheezes noted. No increased work of breathing, no retractions or nasal flaring. Abdomen/GI: Soft, non-tender, with normal bowel sounds. No distension or tympany. No guarding or rebound. No evidence of tenderness throughout. Back: No spinal tenderness. No costovertebral tenderness. Full range of motion. Skin: Warm, dry with normal turgor. Normal color with no rashes, no lesions, and no evidence of cellulitis. MS/ Extremity: Pulses equal, no cyanosis. Neurovascular intact. Full, normal range of motion. Neuro: Awake and alert, GCS 15, oriented to person, place, time, and situation. Cranial nerves II-XII grossly intact. Motor strength 5/5 in all extremities. Sensory grossly intact. Cerebellar exam normal. Normal gait. Psych: Awake, alert, with orientation to person, place and time. Behavior, mood, and affect are within normal limits. Vital Signs: 13:15 BP 122 / 68; Pulse 68; Resp 18; Temp 98.3(O); Pulse Ox 99% on R/A; Weight 84.82 kg; me1 Height 5 ft. 5 in. ; 14:45 BP 122 / 68; Pulse 68; Resp 16; Pulse Ox 100% on R/A; db 13:15 Body Mass Index 31.12 (84.82 kg, 165.1 cm) me1 [place] Coma Score: 14:33 Eye Response: spontaneous(4). Motor Response: obeys commands(6). Verbal Response: cp3 oriented(5). Total: 15. MDM: 13:24 Patient medically screened. cp3 14:33 Differential diagnosis: Viral syndrome, bronchitis, upper respiratory infection, strep cp3 pharyngitis, COVID-19, pneumonia. Data reviewed: vital signs, nurses notes. Consideration of Admission/Observation Escalation of care including admission/observation considered. no emergent indication for hospitalization. 05/02 12:35 Order name: Strep snw 05/02 12:35 Order name: SARS RAPID; Complete Time: 14:29 snw 05/02 14:21 Order name: Throat Culture EDMS Administered Medications: No medications were administered Disposition Summary: 05/02/23 14:31 Discharge Ordered Notes: Location: Home cp3 Problem: new cp3 Condition: Stable cp3 Diagnosis - SARS-associated coronavirus as the cause of diseases classified elsewhere cp3 - Viral infection, unspecified cp3 - Acute pharyngitis, unspecified cp3 - Acute bronchitis, unspecified cp3 Followup: cp3 - With: Jayesh Reid MD - When: - Reason: Re-evaluation by your physician Discharge Instructions: - Discharge Summary Sheet cp3 - Sore Throat cp3 - Viral Respiratory Infection cp3 - COVID-19 cp3 Forms: - Medication Reconciliation Form cp3 - Thank You Letter cp3 - Antibiotic Education cp3 - Prescription Opioid Use cp3 - Patient Portal Instructions cp3 - Leadership Thank You Letter cp3 Prescriptions: - Tessalon Perles 100 mg Oral Capsule - take 1 capsule by ORAL route every 8 hours As needed; 15 capsule; Refills: 0, cp3 Product Selection Permitted - Zithromax Z-Ignacio 250 mg Oral Tablet - take 1 tablet by ORAL route as directed for 5 days Day 1 - take two (2) tablets cp3 one time. Day 2, 3, 4 , 5 take one (1) tablet once daily.; 6 tablet; Refills: 0, Product Selection Permitted Signatures: Dispatcher [employer] EDMS Vicky Kaplan MD MD cp3 Serenity Skinner, RN RN me1
[2023-05-02 14:53] VITALS: BP 122/68; TEMP 98.3
[2023-05-02 14:54] VITALS: O2SAT 100
== END 2023-05-02 14:46 | disposition home or self-care (01) ==
LOC: ER 12:31
DX: U07.1 COVID-19 (principal); J20.8 Acute bronchitis due to other specified organisms; I10 Essential (primary) hypertension; E11.9 Type 2 diabetes mellitus without complications
CPT/HCPCS: 36415; 87070; 87081; 87811; 99283

== ENCOUNTER → 2023-08-12 | Emergency (ER) | payer OTHER ==
[~2023-08-12] MED LIST: NA CHLORIDE 0.9% 1,000 ML ONE; dilTIAZem HCL 25 MG/5 ML VIAL IV ONE
[2023-08-12 12:02] LABS: Absolute Lymphocytes (CBC) 2.6 K/uL (0.7-4.9); Hematocrit 41.1 % (36.0-45.0); Lymphocytes % 30.2 % (15.3-44.8); MCV 95.3 fL (80-100); MPV 8.7 fL (7.6-11.3); Platelets 314 thou/uL (152-406); RBC Red Blood Cell Count 4.31 M/uL (3.86-4.86)
--- NOTE | 2023-08-12 12:13 | RAD REPORT ---
EXAM DESCRIPTION: RAD - Chest Single View - 08/12/2023 11:42 am CLINICAL HISTORY: CHEST PAIN Chest pain. COMPARISON: Chest Single View dated 04/19/2023; Chest Single View dated 02/01/2023; Chest Single View d ated 12/13/2022; Chest Single View dated 08/05/2022 FINDINGS: Portable technique limits examination quality. The lungs are grossly clear. The heart is normal in size. No displaced fractures. IMPRESSION: No acute intrathoracic process suspected.
[2023-08-12 12:23] LABS: SARS-CoV-2 Antigen Rapid Res Negative (Negative)
[2023-08-12 12:28] LABS: Potassium 3.9 mEq/L (3.5-5.1); Thyroid Stimulating Hormone 2.2 uIU/mL (0.358-3.740); Troponin High Sensitivity 7.6 pg/mL (<58.9)
--- NOTE | 2023-08-12 13:52 | ER ---
Nurse's Notes [facility] Name: Katya Hinojosa Age: 73 yrs Sex: Female : 1950 Arrival Date: 08/12/2023 Time: 10:57 Bed 17 Private MD: Diagnosis: Paroxysmal atrial fibrillation Presentation: 08/12 11:10 Chief complaint: Headache, sore throat, malaise, and chest pressure x 2-3 days. Denies hb SOB/fever. HR irregular, 90-136 in triage. Coronavirus screen: Client presents with at least one sign or symptom that may indicate coronavirus-19. Standard/surgical mask placed on the client. Provider contacted for isolation considerations. Ebola Screen: No symptoms or risks identified at this time. Initial Sepsis Screen: Does the patient meet any 2 criteria? RR > 20 per min. HR > 90 bpm. Does the patient have a suspected source of infection? No. Patient's initial sepsis screen is negative. Risk Assessment: Do you want to hurt yourself or someone else? Patient reports no desire to harm self or others. Onset of symptoms was August 10, 2023. 11:10 Method Of Arrival: Ambulatory hb 11:10 Acuity: AMAYA 2 hb Historical: - Allergies: 11:10 No Known Drug Allergies; hb - PMHx: 11:10 Diabetes - NIDDM; High Cholesterol; Hypertension; Hypothyroidism; hb - PSHx: 11:10 Kidney surgery; hb - Immunization history:: Adult Immunizations up to date. - Social history:: Smoking status: Patient denies any tobacco usage or history of. Screenin:[address] [facility] ED Fall Risk Assessment (Adult) History of falling in the last 3 months, db including since admission No falls in past 3 months (0 pts) Confusion or Disorientation No (0 pts) Intoxicated or Sedated No (0 pts) Impaired Gait No (0 pts) Mobility Assist Device Used No (0 pt) Altered Elimination No (0 pt) Score/Fall Risk Level 0 - 2 = Low Risk Oriented to surroundings, Maintained a safe environment. Abuse screen: Denies threats or abuse. Denies injuries from another. Nutritional screening: No deficits noted. Tuberculosis screening: No symptoms or risk factors identified. Assessment: 11:00 Reassessment: Patient appears in no apparent distress at this time. Patient and/or db family updated on plan of care and expected duration. Pain level reassessed. Patient is alert, oriented x 3, equal unlabored respirations, skin warm/dry/pink. General: Appears in no apparent distress. comfortable, Behavior is calm, cooperative. Pain: Denies pain. Neuro: Level of Consciousness is awake, alert, obeys commands, Oriented to person, place, time, situation. Respiratory: Airway is patent Respiratory effort is even, unlabored, Respiratory pattern is regular, symmetrical. EENT: Throat is clear. 12:00 Reassessment: Patient appears in no apparent distress at this time. Patient and/or db family updated on plan of care and expected duration. Pain level reassessed. Patient is alert, oriented x 3, equal unlabored respirations, skin warm/dry/pink. 13:00 Reassessment: Patient appears in no apparent distress at this time. Patient and/or db family updated on plan of care and expected duration. Pain level reassessed. Patient is alert, oriented x 3, equal unlabored respirations, skin warm/dry/pink. 14:00 Reassessment: Patient appears in no apparent distress at this time. Patient and/or db family updated on plan of care and expected duration. Pain level reassessed. Patient is alert, oriented x 3, equal unlabored respirations, skin warm/dry/pink. Patient states feeling better. Patient states symptoms have improved. Neuro: Level of Consciousness is awake, alert, obeys commands, Oriented to person, place, time, situation. Respiratory: Breath sounds are clear bilaterally. Vital Signs: 11:00 BP 110 / 65; Pulse 142; Resp 18; Pulse Ox 98% on R/A; db 11:10 BP 110 / 65; Pulse 134; Resp 24; Temp 98(O); Pulse Ox 100% on R/A; Weight 84.82 kg; hb Height 5 ft. 3 in. ; Pain 5/10; 12:00 BP 89 / 54; Pulse 70; Resp 16; Pulse Ox 100% on R/A; db 12:15 BP 104 / 63; Pulse 65; Resp 18; Pulse Ox 96% on R/A; db 12:30 BP 104 / 69; Pulse 76; Resp 18; Pulse Ox 100% on R/A; db 12:45 BP 136 / 56; Pulse 67; Resp 16; Pulse Ox 100% on R/A; db 13:45 BP 104 / 76; Pulse 84; Resp 16; Pulse Ox 100% on R/A; db 13:50 BP 97 / 55; Pulse 82; Pulse Ox 100% ; ec2 11:10 Body Mass Index 33.12 (84.82 kg, 160.02 cm) hb 11:10 Pain Scale: Adult hb 12:00 PHYSICIAN NOTIFIED OF BP AFTER DILTIAZEM ADMINISTRATION db ED Course: 11:01 Patient arrived in ED. ts1 11:02 Hernan Mcduffie MD is Attending Physician. ec2 11:11 Aparna Fischer, SEKOU is Primary Nurse. db 11:12 Triage completed. hb 11:12 Arm band placed on. hb 11:46 Influenza Screen (a \T\ B) Sent. bc6 11:46 SARS RAPID Sent. bc6 11:46 T4 Free Sent. bc6 11:46 TSH Sent. bc6 11:47 Basic Metabolic Panel Sent. bc6 11:47 CBC with Diff Sent. bc6 11:47 NT PRO-BNP Sent. bc6 11:47 Troponin HS Sent. bc6 11:47 Inserted saline lock: 20 gauge in right antecubital area, using aseptic technique. bc6 Blood collected. 12:00 Client placed on continuous cardiac and pulse oximetry monitoring. NIBP monitoring db applied. 14:15 Provided Education on: DISCHARGE. db 14:28 Patient has correct armband on for positive identification. Bed in low position. Call db light in reach. Side rails up X 1. 14:29 No provider procedures requiring assistance completed. IV discontinued, intact, db bleeding controlled, No redness/swelling at site. Administered Medications: 12:07 Drug: Diltiazem IVP 20 mg IVP once; Over 2 Minutes Route: IVP; Site: right antecubital; me1 14:30 Follow up: Response: No adverse reaction db 12:08 Drug: NS 0.9% IV 1000 ml IV at 1 bolus Per protocol; 1000 mL bolus Route: IV; Rate: 1 me1 bolus; Site: right antecubital; 14:30 Follow up: Response: No adverse reaction; IV Status: Completed infusion; IV Intake: db 1000ml 12:58 Drug: NS 0.9% IV 1000 ml IV at 1 bolus Per protocol; 1000 mL bolus Route: IV; Rate: 1 db bolus; Site: right antecubital; 14:29 Follow up: Response: No adverse reaction; IV Status: Completed infusion; IV Intake: db 500ml Medication: 14:29 VIS not applicable for this client. db Intake: 14:29 IV: 500ml; Total: 500ml. db 14:30 IV: 1000ml; Total: 1500ml. db Outcome: 13:51 Discharge ordered by . ec2 14:29 Discharged to home ambulatory, db 14:29 Condition: stable 14:29 Discharge instructions given to patient, Instructed on discharge instructions, follow up and referral plans. 14:30 Patient left the ED. db Signatures: Deisy Fleming, RN RN Aparna Fischer, RN RN db Jannette Guevara bc6 Nay Almodovar, PAS PAS ts1 Serenity Skinner, RN RN me1 Hernan Mcduffie MD MD ec2
--- NOTE | 2023-08-12 13:52 | EDPHYS ---
Physician Documentation [facility] Name: Katya Hinojosa Age: 73 yrs Sex: Female : 1950 Arrival Date: 08/12/2023 Time: 10:57 Bed 17 Private MD: ED Physician Hernan Mcduffie HPI: 08/12 11:18 This 73 yrs old Female presents to ER via Ambulatory with complaints of Sore ec2 Throat, Chest Congestion, Dizziness. 11:18 Patient arrives today for evaluation of chest pressure. Patient reports a history of ec2 hypertension, hyperlipidemia, reports that she has been experiencing some chest pressure. Patient reports some occasional difficulty breathing. States that she is unsure if she has ever been diagnosed with an arrhythmia however is on Eliquis and sotalol. She describes what sounds like a diagnosis of an arrhythmia. No recent cough or cold symptoms, no vomiting or diarrhea symptoms. No urinary complaints. Patient's main concern is that she is having generalized weakness.. Historical: - Allergies: 11:10 No Known Drug Allergies; hb - PMHx: 11:10 Diabetes - NIDDM; High Cholesterol; Hypertension; Hypothyroidism; hb - PSHx: 11:10 Kidney surgery; hb - Immunization history:: Adult Immunizations up to date. - Social history:: Smoking status: Patient denies any tobacco usage or history of. ROS: 11:18 Constitutional: as per hpi ec2 Exam: 11:18 Constitutional: GEN: NAD Head: atraumatic Eyes: EOMI Ears: External ears are ec2 normal. CV: Tachycardia, irregular rhythm LUNGS: no respiratory distress, no wheezes, no rales, no rhonchi ABD: non-distended, soft, nontender, no guarding, not rigid SKIN: no evidence of rashes MSK: no evidence of trauma NEURO: moves all extremities equally Vital Signs: 11:00 BP 110 / 65; Pulse 142; Resp 18; Pulse Ox 98% on R/A; db 11:10 BP 110 / 65; Pulse 134; Resp 24; Temp 98(O); Pulse Ox 100% on R/A; Weight 84.82 kg; hb Height 5 ft. 3 in. ; Pain 5/10; 12:00 BP 89 / 54; Pulse 70; Resp 16; Pulse Ox 100% on R/A; db 12:15 BP 104 / 63; Pulse 65; Resp 18; Pulse Ox 96% on R/A; db 12:30 BP 104 / 69; Pulse 76; Resp 18; Pulse Ox 100% on R/A; db 12:45 BP 136 / 56; Pulse 67; Resp 16; Pulse Ox 100% on R/A; db 13:45 BP 104 / 76; Pulse 84; Resp 16; Pulse Ox 100% on R/A; db 13:50 BP 97 / 55; Pulse 82; Pulse Ox 100% ; ec2 11:10 Body Mass Index 33.12 (84.82 kg, 160.02 cm) hb 11:10 Pain Scale: Adult hb 12:00 PHYSICIAN NOTIFIED OF BP AFTER DILTIAZEM ADMINISTRATION db MDM: 11:18 Data reviewed: vital signs. ED course: Patient arrives today for evaluation of ec2 generalized weakness as well as chest pressure. Examination remarkable for well-appearing nontoxic dividual is otherwise in no acute distress who does have tachycardia with irregular rhythm noted. Will obtain a cardiac workup and further assess the patient complaint. Currently considering A-fib with RVR, electrolyte disturbances, anemia, ACS.. 11:24 Patient medically screened. ec2 11:27 ED course: EKG independently reviewed and interpreted by me, shows atrial fibrillation, ec2 rate 112, no acute ST segment elevations, nonconcerning intervals.. 12:17 ED course: CBC is reassuring. Chest x-ray shows no acute intrathoracic process. . ec2 12:24 ED course: On reassessment patient with improving heart rate to heart rate of 60-90. ec2 Will obtain repeat EKG. COVID testing negative. Flu testing negative. . 12:35 ED course: EKG independently reviewed and interpreted by me, shows atrial flutter with ec2 variable conduction, rate of 59, no acute ST segment elevations, intervals are otherwise nonconcerning.. 13:11 ED course: Metabolic profile with appropriate electrolytes, BNP elevated at 1800. ec2 Troponin within normal ranges. TSH and T4 unremarkable. . 13:50 ED course: On reassessment patient is well-appearing in no acute distress. No emergent ec2 findings identified on patient's workup. Patient has remained in atrial fibrillation with stable rates, I suspect diagnosis of previous atrial fibrillation given the descriptors that the patient had used initially given her medication usage for sotalol as well as Eliquis. Will discharge home and have her follow-up with primary care doctor. Return precautions given. . 08/12 11:18 Order name: Basic Metabolic Panel; Complete Time: 13:10 ec2 08/12 11:18 Order name: CBC with Diff; Complete Time: 12:17 ec2 08/12 11:18 Order name: NT PRO-BNP; Complete Time: 13:10 ec2 08/12 11:18 Order name: Troponin HS; Complete Time: 13:10 ec2 08/12 11:18 Order name: TSH; Complete Time: 13:10 ec2 08/12 11:18 Order name: T4 Free; Complete Time: 13:10 ec2 08/12 11:18 Order name: SARS RAPID; Complete Time: 12:24 ec2 08/12 11:18 Order name: Influenza Screen (a \T\ B); Complete Time: 12:24 ec2 08/12 11:18 Order name: XRAY Chest (1 view) ec2 08/12 12:14 Order name: RAD; Complete Time: 12:17 EDMS 08/12 11:18 Order name: EKG; Complete Time: 11:19 ec2 08/12 12:23 Order name: EKG; Complete Time: 19:09 ec2 08/12 11:18 Order name: Cardiac monitoring; Complete Time: 13:35 ec2 08/12 11:18 Order name: EKG - Nurse/Tech; Complete Time: 11:29 ec2 08/12 11:18 Order name: IV Saline Lock; Complete Time: 11:47 ec2 08/12 11:18 Order name: Labs collected and sent; Complete Time: 13:35 ec2 08/12 11:18 Order name: O2 Per Protocol; Complete Time: 13:35 ec2 08/12 11:18 Order name: O2 Sat Monitoring; Complete Time: 13:35 ec2 08/12 12:23 Order name: EKG - Nurse/Tech; Complete Time: 12:37 ec2 Administered Medications: 12:07 Drug: Diltiazem IVP 20 mg IVP once; Over 2 Minutes Route: IVP; Site: right antecubital; me1 14:30 Follow up: Response: No adverse reaction db 12:08 Drug: NS 0.9% IV 1000 ml IV at 1 bolus Per protocol; 1000 mL bolus Route: IV; Rate: 1 me1 bolus; Site: right antecubital; 14:30 Follow up: Response: No adverse reaction; IV Status: Completed infusion; IV Intake: db 1000ml 12:58 Drug: NS 0.9% IV 1000 ml IV at 1 bolus Per protocol; 1000 mL bolus Route: IV; Rate: 1 db bolus; Site: right antecubital; 14:29 Follow up: Response: No adverse reaction; IV Status: Completed infusion; IV Intake: db 500ml Disposition Summary: 08/12/23 13:51 Discharge Ordered Notes: Location: Home ec2 Condition: Stable ec2 Diagnosis - Paroxysmal atrial fibrillation ec2 Followup: ec2 - With: Private Physician - When: - Reason: Recheck today's complaints Discharge Instructions: - Discharge Summary Sheet ec2 - Atrial Fibrillation ec2 Forms: - Medication Reconciliation Form ec2 - Thank You Letter ec2 - Antibiotic Education ec2 - Prescription Opioid Use ec2 - Patient Portal Instructions ec2 - Leadership Thank You Letter ec2 Signatures: Dispatcher [employer] EDDeisy Ortiz RN RN Aparna Fischer RN RN db Eddleman, Michelle, RN RN me1 Hernan Mcduffie MD MD ec2 Corrections: (The following items were deleted from the chart) 11:19 11:18 Patient arrives today for evaluation of chest pressure. Patient reports a history ec2 of hypertension, hyperlipidemia, reports that she has been experiencing some chest pressure. Patient reports some occasional difficulty breathing. States that she is unsure if she has ever been diagnosed with an arrhythmia however is on Eliquis and sotalol. She describes what sounds like a diagnosis of an arrhythmia. No recent cough or cold symptoms, no vomiting or diarrhea symptoms. No urinary complaints.. ec2
[2023-08-12 15:21] VITALS: TEMP 98; O2SAT 100
[2023-08-12 15:37] VITALS: BP 97/55
== END ==
LOC: ER 10:57
DX: I48.0 Paroxysmal atrial fibrillation (principal); E11.9 Type 2 diabetes mellitus without complications; I10 Essential (primary) hypertension; Z11.52 Encounter for screening for COVID-19
CPT/HCPCS: 96361; 93005 ×2; 85025; 80048; 36415; 84443; 84484; 84439; 83880; 87804 ×2; 71045; 96374; 99284; 87811; J7030 ×2

== ENCOUNTER 2024-05-02 11:09 | Emergency (ER) | payer OTHER ==
[2024-05-02 12:17] LABS: SARS-CoV-2 Antigen CONTROL BLUE LINE VIS/BG OK; SARS-CoV-2 Antigen Rapid Res Negative (Negative)
[2024-05-02] MEDS ORDERED: IBUPROFEN 400 MG TAB ONE (13:47)
--- NOTE | 2024-05-02 14:07 | RAD REPORT ---
Procedure: Chest Single View History: Cough Comparison: 2022 The lungs appear clear of acute infiltrate. No significant pleural effusion noted. The heart is normal size. IMPRESSION: No acute abnormality is displayed.
--- NOTE | 2024-05-02 14:13 | ER ---
Nurse's Notes [facility] Name: Katya Hinojosa Age: 74 yrs Sex: Female : 1950 Arrival Date: 05/02/2024 Time: 11:09 Bed 12 Private MD: Diagnosis: Headache;Bilateral ear fullness;Nausea;Mid-back pain Presentation: 05/02 11:31 Chief complaint: Patient states: ear ache for 5 days. Headache, dizziness, backache, tm6 and nausea today. Coronavirus screen: Vaccine status: Patient reports receiving the 2nd dose of the covid vaccine. Ebola Screen: Patient negative for fever greater than or equal to 101.5 degrees Fahrenheit, and additional compatible Ebola Virus Disease symptoms Patient denies exposure to infectious person. Patient denies travel to an Ebola-affected area in the 21 days before illness onset. No symptoms or risks identified at this time. Initial Sepsis Screen: Does the patient meet any 2 criteria? No. Patient's initial sepsis screen is negative. Does the patient have a suspected source of infection? No. Patient's initial sepsis screen is negative. Risk Assessment: Do you want to hurt yourself or someone else? Patient reports no desire to harm self or others. Onset of symptoms was April 27, 2024. 11:31 Method Of Arrival: Ambulatory tm6 11:31 Acuity: AMAYA 3 tm6 Triage Assessment: 11:31 General: Appears in no apparent distress. uncomfortable, Behavior is calm, cooperative. tm6 Pain: Complains of pain in face, right ear, left ear and back Pain currently is 8 out of 10 on a pain scale. Quality of pain is described as aching, Pain began 5 days. EENT: Reports pain in right ear and left ear. Neuro: Level of Consciousness is awake, alert, obeys commands, Oriented to person, place, time, situation, Reports headache. Cardiovascular: Patient's skin is warm and dry. Respiratory: Airway is patent Respiratory effort is even, unlabored, Respiratory pattern is regular, symmetrical. GI: Abdomen is flat, non-distended, Reports nausea. : No signs and/or symptoms were reported regarding the genitourinary system. Derm: No signs and/or symptoms reported regarding the dermatologic system. Musculoskeletal: Reports pain in face, right ear, left ear and back. Historical: - Allergies: : No Known Allergies; tm6 - PMHx: 11:30 Hypothyroidism; Hypertension; High Cholesterol; Diabetes - NIDDM; tm6 - PSHx: 11:30 Kidney surgery; Thyroidectomy; tm6 - Immunization history:: Client reports receiving the 2nd dose of the Covid vaccine. - Infectious Disease History:: Denies. - Social history:: Smoking status: Patient denies any tobacco usage or history of. Vital Signs: 11:28 BP 87 / 75; Pulse 57; Resp 18; Temp 98.6(O); Pulse Ox 99% on R/A; Weight 86.18 kg; tm6 Height 5 ft. 5 in. ; Pain 8/10; 11:30 BP 114 / 67; MAP 82 mmHg; tm6 11:28 Body Mass Index 31.62 (86.18 kg, 165.1 cm) tm6 11:28 Pain Scale: Adult tm6 ED Course: 11:12 Patient arrived in ED. im 11:21 Annemarie Heller MD is Attending Physician. sd2 11:31 Arm band placed on left wrist. tm6 11:32 Triage completed. tm6 11:46 Flu Sent. bc6 11:46 SARS RAPID Sent. bc6 11:46 COVID swab sent to lab. Flu and/or RSV swab sent to lab. bc6 12:20 Soraya Lee, RN is Primary Nurse. iw 13:33 XRAY Chest (1 view) In Process Unspecified. EDMS Administered Medications: 13:50 Drug: Ibuprofen PO 800 mg PO once Route: PO; tm6 Outcome: 14:13 Discharge ordered by . sd2 14:52 Patient left the ED. iw Signatures: Dispatcher [employer] EDMS Soraya Lee, RN SEKOU iw Annemarie Heller MD MD sd2 Jannette Guevara bc6 Bridgette Alba Boogie Castro RN RN 6
--- NOTE | 2024-05-02 14:14 | EDPHYS ---
Physician Documentation [facility] Name: Katya Hinojosa Age: 74 yrs Sex: Female : 1950 Arrival Date: 05/02/2024 Time: 11:09 Bed 12 Private MD: ED Physician Annemarie Heller HPI: 05/02 11:52 This 74 yrs old Female presents to ER via Ambulatory with complaints of sd2 Dizziness, Back Pain, Ear congestion, Nausea, Headache. 11:52 74-year-old female presents with chief complaint of bilateral ear congestion, nausea sd2 and headache that has been ongoing for the past 3 days. She actually denies dizziness for me at this time and states that she has not had any dizziness or cough. She reports that she has some mid back pain that worsens when she takes a deep breath or stretches the area as well. No known sick contacts. She does report coming in contact with chemicals at her job which she was concerned about being exposed to. However, she cannot tell me what type of chemicals they are.. Historical: - Allergies: 11:30 No Known Allergies; tm6 - PMHx: 11:30 Hypothyroidism; Hypertension; High Cholesterol; Diabetes - NIDDM; tm6 - PSHx: 11:30 Kidney surgery; Thyroidectomy; tm6 - Immunization history:: Client reports receiving the 2nd dose of the Covid vaccine. - Infectious Disease History:: Denies. - Social history:: Smoking status: Patient denies any tobacco usage or history of. ROS: 11:52 Constitutional: Negative for fever, chills, and weight loss, Eyes: Negative for injury, sd2 pain, redness, and discharge, 11:52 Cardiovascular: Negative for chest pain, palpitations, and edema, Respiratory: Negative for shortness of breath, cough, wheezing. Abdomen/GI: Negative for abdominal pain, nausea, vomiting, diarrhea. MS/Extremity: Negative for injury and deformity, Skin: Negative for injury, rash, and discoloration, Neuro: Positive for headache, negative for numbness and tingling. 11:52 ENT: Positive for sinus congestion, Ear fullness, Exam: 11:52 Constitutional: This is a well developed, well nourished patient who is awake, alert, sd2 and in no acute distress. Head/Face: Normocephalic, atraumatic. Eyes: EOMI, normal conjunctiva bilaterally Chest/axilla: Normal chest wall appearance and motion. Nontender with no deformity. Cardiovascular: Regular rate and rhythm with a normal S1 and S2. No gallops, murmurs, or rubs. 2+ distal pulses. Respiratory: Lungs have equal breath sounds bilaterally, clear to auscultation and percussion. No rales, rhonchi or wheezes noted. No increased work of breathing, no retractions or nasal flaring. Abdomen/GI: Soft, non-tender, with normal bowel sounds. No guarding or rebound. No evidence of tenderness throughout. Skin: Warm, dry with normal turgor. Normal color with no rashes, no lesions, and no evidence of cellulitis. MS/ Extremity: Pulses equal, no cyanosis. Neurovascular intact. Full, normal range of motion. Psych: Awake, alert, with orientation to person, place and time. Behavior, mood, and affect are within normal limits. 12:48 ECG was reviewed by the Attending Physician. Sinus bradycardia, rate 56, TWIs in sd2 inferior and lateral leads Vital Signs: 11:28 BP 87 / 75; Pulse 57; Resp 18; Temp 98.6(O); Pulse Ox 99% on R/A; Weight 86.18 kg; tm6 Height 5 ft. 5 in. ; Pain 8/10; 11:30 BP 114 / 67; MAP 82 mmHg; tm6 11:28 Body Mass Index 31.62 (86.18 kg, 165.1 cm) tm6 11:28 Pain Scale: Adult tm6 MDM: 11:51 Patient medically screened. sd2 11:52 Differential diagnosis: viral URI, tension ULRICH, chemical exposure, PNA, pneumonitis, MSK sd2 among others. Data reviewed: vital signs, nurses notes. Care significantly affected by the following chronic conditions: Diabetes, Hypertension. 12:48 Counseling: I had a detailed discussion with the patient and/or guardian regarding the sd2 historical points, exam findings, and any diagnostic results supporting the discharge/admit diagnosis, lab results, radiology results, the need for outpatient follow up, to return to the emergency department if symptoms worsen or persist or if there are any questions or concerns that arise at home. ED course: Labs and imaging reviewed. Viral testing negative. EKG with no ischemic changes. CXR pending. . 14:12 ED course: CXR clear.. sd2 05/02 11:21 Order name: SARS RAPID; Complete Time: 12:26 sd2 05/02 11:21 Order name: Flu; Complete Time: 12:26 sd2 05/02 12:39 Order name: Glucose, Ancillary Testing; Complete Time: 12:48 EDMS 05/02 11:52 Order name: XRAY Chest (1 view); Complete Time: 14:12 sd2 05/02 11:52 Order name: EKG - Nurse/Tech; Complete Time: 12:31 sd2 05/02 11:52 Order name: Glucose Level; Complete Time: 12:31 sd2 Administered Medications: 13:50 Drug: Ibuprofen PO 800 mg PO once Route: PO; tm6 Disposition Summary: 05/02/24 14:13 Discharge Ordered Problem: new sd2 Symptoms: have improved sd2 Condition: Stable sd2 Diagnosis - Headache sd2 - Bilateral ear fullness sd2 - Nausea sd2 - Mid-back pain sd2 Followup: sd2 - With: Private Physician - When: 2 - 3 days - Reason: Recheck today's complaints, Continuance of care, Re-evaluation by your physician Discharge Instructions: - General Headache Without Cause sd2 - Viral Illness, Adult sd2 - Discharge Summary Sheet tm6 Forms: - Medication Reconciliation Form sd2 - Antibiotic Education sd2 - Prescription Opioid Use sd2 - Patient Portal Instructions sd2 - Leadership Thank You Letter sd2 - Work release form tm6 Signatures: Dispatcher [employer] Annemarie Quinones MD MD sd2 Boogie Castro RN RN tm6
[2024-05-02 15:21] VITALS: TEMP 98.6; O2SAT 99
[2024-05-02 15:22] VITALS: BP 114/67
--- NOTE | 2024-05-03 12:20 | EKG ---
Test Date: 2024-05-02 Test Time: 12:28:40 Lead Network Engineer: NELIA MEASUREMENT RESULTS: Intervals: Rate: 56 NH: 184 QRSD: 74 QT: 444 QTc: 428 [place]: P: 0 NH: 184 QRS: -17 T: -59 INTERPRETIVE STATEMENTS: Sinus bradycardia with marked sinus arrhythmia T wave abnormality, consider inferior ischemia Abnormal ECG Compared to ECG 08/17/2023 16:51:29 T-wave abnormality now present Left ventricular hypertrophy no longer present ST (T wave) deviation no longer present Possible ischemia still present Electronically Signed On 05-03-24 12:17:06 CDT by Damon Mcgrath
== END 2024-05-02 14:52 | disposition home or self-care (01) ==
LOC: ER 11:09
DX: R51.9 Headache, unspecified (principal); R11.0 Nausea; H93.8X3 Other specified disorders of ear, bilateral; M54.9 Dorsalgia, unspecified; I10 Essential (primary) hypertension; E03.9 Hypothyroidism, unspecified; E78.00 Pure hypercholesterolemia, unspecified; E11.9 Type 2 diabetes mellitus without complications; Z11.52 Encounter for screening for COVID-19
CPT/HCPCS: 36415; 71045; 82947; 87804; 87811; 93005; 99283

== ENCOUNTER 2024-05-28 15:48 | Emergency (ER) | payer OTHER ==
[2024-05-28] MEDS ORDERED: DIPHENHYDRAMINE 50 MG/ML VIAL ONE (16:27)
[2024-05-28] MEDS ORDERED: METOCLOPRAMIDE 10 MG/2mL INJ ONE (16:27)
[2024-05-28] MEDS ORDERED: NA CHLORIDE 0.9% 1,000 ML ONE (16:27)
[2024-05-28 16:54] LABS: Absolute Basophils 0.1 K/uL (0-0.5); Absolute Eosinophils 0.5 K/uL (0-0.5); Absolute Lymphocytes (CBC) 1.9 K/uL (0.7-4.9); Absolute Monocytes 0.5 K/uL (0.1-1.3); Absolute Neutrophil 6.4 K/uL (1.8-8.0); Basophils % 0.6 % (0-1.3); Eosinophils % 5.3 % (0-4.4); Hematocrit 40.1 % (36.0-45.0); Hemoglobin 14.1 g/dL (12.0-15.0); Lymphocytes % 20.6 % (15.3-44.8); MCH 33.1 pg (27.0-35.0); MCHC 35.2 g/dL (32.0-36.0); MCV 94.1 fL (80-100); MPV 8.2 fL (7.6-11.3); Monocytes % 5.1 % (3.3-12.3); Neutrophils % 68.4 % (41.7-73.7); Platelets 267 thou/uL (152-406); RBC Red Blood Cell Count 4.26 M/uL (3.86-4.86); Red Cell Distribution Width 13.3 % (12.1-15.2)
[2024-05-28 17:13] LABS: Anion Gap 7.6 mEq/L (5.0-15.0); Potassium 3.6 mEq/L (3.5-5.1)
[2024-05-28] MEDS ORDERED: dexAMETHasone 10 MG/ML VIAL ONE (17:28)
--- NOTE | 2024-05-28 17:29 | EDPHYS ---
Physician Documentation [facility] Name: Katya Hinojosa Age: 74 yrs Sex: Female : 1950 Arrival Date: 05/28/2024 Time: 15:48 Bed 16 Private MD: ED Physician Hernan Mcduffie HPI: 05/28 16:26 This 74 yrs old Female presents to ER via Ambulatory with complaints of ec2 Nausea/Vomiting, Headache, Anxiety. 16:26 Patient arrives today for evaluation of a headache along with nausea and vomiting along ec2 with anxiety. Reports that she has been having a headache since earlier this afternoon, reports no specific alleviating or exacerbating factors. No recent falls injuries or trauma. Also reports history of anxiety which she believes is contributing to her symptoms today. Patient reports of associated nausea and vomiting.. Historical: - Allergies: 16:06 No Known Allergies; tm6 - PMHx: 16:06 Diabetes - NIDDM; High Cholesterol; Hypertension; Hypothyroidism; tm6 - PSHx: 16:06 Kidney surgery; Thyroidectomy; tm6 - Immunization history:: Client reports receiving the 2nd dose of the Covid vaccine. - Infectious Disease History:: Denies. - Social history:: Smoking status: Patient denies any tobacco usage or history of. Patient/guardian denies using alcohol. ROS: 16:26 Constitutional: as per hpi ec2 Exam: 16:26 Constitutional: GEN: NAD Head: atraumatic Eyes: EOMI Ears: External ears are ec2 normal. CV: regular rate LUNGS: no respiratory distress ABD: non-distended SKIN: no evidence of rashes MSK: no evidence of trauma. Neuro: Cranial nerves II through XII intact, strength intact all 4 extremities, normal [id number]. Vital Signs: 16:05 BP 182 / 91; Pulse 63; Resp 19; Temp 96.6(TE); Pulse Ox 95% on R/A; MAP 115 mmHg; tm6 Weight 86.18 kg; Height 5 ft. 5 in. ; Pain 9/10; 16:54 BP 178 / 82; Pulse 63; Resp 18 S; Pulse Ox 95% on R/A; kc6 16:05 Body Mass Index 31.62 (86.18 kg, 165.1 cm) tm6 16:05 Pain Scale: Adult tm6 MDM: 15:51 Medical Screening Exam initiated ec2 16:26 Data reviewed: vital signs. ED course: Patient arrives today for evaluation of ec2 headache, nausea vomiting as well as anxiety. Examination remarkable for neuro intact individuals otherwise in no acute distress with a reassuring examination. Will obtain an EKG as well as lab work, differential diagnosis includes ACS, anxiety, electrolyte disturbances, dehydration. Will treat the patient's symptoms as well. . 16:36 ED course: EKG independently reviewed and interpreted by me, shows normal sinus rhythm, ec2 rate of 64, no acute ST segment elevations, intervals are nonactionable.. 17:22 ED course: Metabolic profile, CBC as well as troponin are nonactionable. . ec2 17:23 ED course: Chest x-ray independently reviewed and interpreted by me, shows no acute ec2 intrathoracic process.. 05/28 16:10 Order name: Basic Metabolic Panel; Complete Time: 17:21 ec2 05/28 16:10 Order name: CBC with Diff; Complete Time: 17:21 ec2 05/28 16:10 Order name: Troponin HS; Complete Time: 17:21 ec2 05/28 16:10 Order name: XRAY Chest (1 view); Complete Time: 18:05 ec2 05/28 16:10 Order name: EKG; Complete Time: 16:10 ec2 05/28 16:10 Order name: Cardiac monitoring; Complete Time: 16:36 ec2 05/28 16:10 Order name: EKG - Nurse/Tech; Complete Time: 16:36 ec2 05/28 16:10 Order name: IV Saline Lock; Complete Time: 16:49 ec2 05/28 16:10 Order name: Labs collected and sent; Complete Time: 16:49 ec2 05/28 16:10 Order name: O2 Per Protocol; Complete Time: 16:22 ec2 05/28 16:10 Order name: O2 Sat Monitoring; Complete Time: 16:22 ec2 Administered Medications: 16:54 Drug: NS 0.9% IV 1000 ml IV at 1000 ml once; to be given as a bolus over 60 minutes kc6 Route: IV; Rate: 1000 ml; Site: left antecubital; 17:28 Follow up: Response: No adverse reaction; IV Status: Completed infusion; IV Intake: kc6 1000ml 16:54 Drug: metoCLOPramide IVP 10 mg IVP once; over 1 to 2 minutes Route: IVP; Site: left kc6 antecubital; 17:28 Follow up: Response: No adverse reaction kc6 16:54 Drug: diphenhydrAMINE IVP 50 mg IVP once Route: IVP; Site: left antecubital; kc6 17:28 Follow up: Response: No adverse reaction kc6 17:38 Drug: Decadron - Dexamethasone IVP 10 mg IVP once Route: IVP; Site: left antecubital; kc6 17:59 Follow up: Response: No adverse reaction kc6 17:45 Drug: Ondansetron IVP 4 mg IVP once; over 2 minutes Route: IVP; Site: left antecubital; kc6 17:59 Follow up: Response: No adverse reaction; Nausea is decreased; Vomiting decreased kc6 Disposition Summary: 05/28/24 17:28 Discharge Ordered Notes: Location: Home ec2 Condition: Stable ec2 Diagnosis - Anxiety disorder, unspecified ec2 - Headache ec2 Followup: ec2 - With: Private Physician - When: - Reason: Re-evaluation by your physician Discharge Instructions: - Discharge Summary Sheet ec2 - Panic Attack ec2 - General Headache Without Cause ec2 Forms: - Work release form kc6 - Medication Reconciliation Form ec2 - Antibiotic Education ec2 - Prescription Opioid Use ec2 - Patient Portal Instructions ec2 - Leadership Thank You Letter ec2 Prescriptions: - Compazine 10 mg Oral Tablet - take 1 tablet ORAL route every 8 hours As needed; 20 tablet; Refills: 0, ec2 Product Selection Permitted - Hydroxyzine HCl 25 mg Oral Tablet - take 1 tablet ORAL route every 6 hours As needed; 30 tablet; Refills: 0, ec2 Product Selection Permitted Signatures: Dispatcher [employer] EDDasha Trevino RN RN kc6 Hernan Mcduffie MD MD ec2 Boogie Castro RN RN tm6 Corrections: (The following items were deleted from the chart) 16:10 16:10 BASIC METABOLIC PANEL+C.LAB.BRZ ordered. EDMS EDMS 16:10 16:10 CBC+H.LAB.BRZ ordered. EDMS EDMS 16:10 16:10 Troponin High Sensitivity+C.LAB.BRZ ordered. EDMS EDMS
--- NOTE | 2024-05-28 17:29 | ER ---
Nurse's Notes [facility] Name: Katya Hinojosa Age: 74 yrs Sex: Female : 1950 Arrival Date: 05/28/2024 Time: 15:48 Bed 16 Private MD: Diagnosis: Anxiety disorder, unspecified;Headache Presentation: 05/28 16:05 Chief complaint: Patient states: headache, chest pressure, n/v, nervousness x2 hours. tm6 Coronavirus screen: Client denies travel out of the [place] in the last 14 days. Ebola Screen: Patient negative for fever greater than or equal to 101.5 degrees Fahrenheit, and additional compatible Ebola Virus Disease symptoms Patient denies exposure to infectious person. Patient denies travel to an Ebola-affected area in the 21 days before illness onset. No symptoms or risks identified at this time. Initial Sepsis Screen: Does the patient meet any 2 criteria? No. Patient's initial sepsis screen is negative. Does the patient have a suspected source of infection? No. Patient's initial sepsis screen is negative. Risk Assessment: Do you want to hurt yourself or someone else? Patient reports no desire to harm self or others. Onset of symptoms was May 28, 2024 at 14:00. 16:05 Method Of Arrival: Ambulatory tm6 16:05 Acuity: AMAYA 3 tm6 Triage Assessment: 16:06 General: Appears in no apparent distress. Behavior is calm, cooperative. Pain: tm6 Complains of pain in head, chest Pain currently is 5 out of 10 on a pain scale. Quality of pain is described as aching, pressure, Pain began 2 hours ago. EENT: No signs and/or symptoms were reported regarding the EENT system. Neuro: Level of Consciousness is awake, alert, obeys commands, Oriented to person, place, time, situation, Reports headache since 1400. Cardiovascular: Reports chest pain, since 1400. Respiratory: Airway is patent Respiratory effort is even, unlabored, Respiratory pattern is regular, symmetrical. GI: Abdomen is flat, non-distended, Reports nausea, vomiting, since 2 hours ago. : No signs and/or symptoms were reported regarding the genitourinary system. Derm: No signs and/or symptoms reported regarding the dermatologic system. Musculoskeletal: No signs and/or symptoms reported regarding the musculoskeletal system. Historical: - Allergies: 16:06 No Known Allergies; tm6 - PMHx: 16:06 Diabetes - NIDDM; High Cholesterol; Hypertension; Hypothyroidism; tm6 - PSHx: 16:06 Kidney surgery; Thyroidectomy; tm6 - Immunization history:: Client reports receiving the 2nd dose of the Covid vaccine. - Infectious Disease History:: Denies. - Social history:: Smoking status: Patient denies any tobacco usage or history of. Patient/guardian denies using alcohol. Screenin:00 [facility] ED Fall Risk Assessment (Adult) History of falling in the last 3 months, kc6 including since admission No falls in past 3 months (0 pts) Confusion or Disorientation No (0 pts) Intoxicated or Sedated No (0 pts) Impaired Gait No (0 pts) Mobility Assist Device Used No (0 pt) Altered Elimination No (0 pt) Score/Fall Risk Level 0 - 2 = Low Risk Oriented to surroundings. Abuse screen: Denies threats or abuse. Denies injuries from another. Nutritional screening: No deficits noted. Tuberculosis screening: No symptoms or risk factors identified. Assessment: 17:26 General: Appears in no apparent distress. comfortable, well groomed, well developed, kc6 Behavior is calm, cooperative, appropriate for age. Pain: Complains of pain in chest. Neuro: Neuro: Level of Consciousness is awake, alert, obeys commands, Oriented to person, place, time, situation, Appropriate for age Reports headache. Cardiovascular: Reports chest pain, Heart tones S1 S2 present Capillary refill < 3 seconds Rhythm is sinus bradycardia. Respiratory: Airway is patent Trachea midline Respiratory effort is even, unlabored, Respiratory pattern is regular, symmetrical. GI: Reports nausea, vomiting. : No signs and/or symptoms were reported regarding the genitourinary system. EENT: No signs and/or symptoms were reported regarding the EENT system. Derm: No signs and/or symptoms reported regarding the dermatologic system. Skin is intact, is healthy with good turgor, Skin is pink, warm \T\ dry. Musculoskeletal: No signs and/or symptoms reported regarding the musculoskeletal system. Circulation, motion, and sensation intact. Capillary refill < 3 seconds, Range of motion: intact in all extremities. Vital Signs: 16:05 BP 182 / 91; Pulse 63; Resp 19; Temp 96.6(TE); Pulse Ox 95% on R/A; MAP 115 mmHg; tm6 Weight 86.18 kg; Height 5 ft. 5 in. ; Pain 9/10; 16:54 BP 178 / 82; Pulse 63; Resp 18 S; Pulse Ox 95% on R/A; kc6 16:05 Body Mass Index 31.62 (86.18 kg, 165.1 cm) tm6 16:05 Pain Scale: Adult tm6 ED Course: 15:50 Patient arrived in ED. im 15:51 Hernan Mcduffie MD is Attending Physician. ec2 15:54 Dasha Beltrán RN is Primary Nurse. kc6 16:00 Patient has correct armband on for positive identification. Bed in low position. Call kc6 light in reach. Side rails up X 1. Adult w/ patient. Pulse ox on. NIBP on. electronic device monitor on. Door closed. Noise minimized. Lights dimmed. Pillow given. 16:00 Patient maintains SpO2 saturation greater than 95% on room air. kc6 16:06 Triage completed. tm6 16:06 Arm band placed on right wrist. tm6 16:48 Inserted saline lock: 20 gauge in left antecubital area, using aseptic technique. Blood nh2 collected. Flushed with 10 mL NS. 16:49 Basic Metabolic Panel Sent. nh2 16:49 CBC with Diff Sent. nh2 16:49 Troponin HS Sent. nh2 17:01 XRAY Chest (1 view) In Process Unspecified. EDMS 18:07 No provider procedures requiring assistance completed. IV discontinued, intact, kc6 bleeding controlled, No redness/swelling at site. Pressure dressing applied. Administered Medications: 16:54 Drug: NS 0.9% IV 1000 ml IV at 1000 ml once; to be given as a bolus over 60 minutes [facility] Route: IV; Rate: 1000 ml; Site: left antecubital; 17:28 Follow up: Response: No adverse reaction; IV Status: Completed infusion; IV Intake: kc6 1000ml 16:54 Drug: metoCLOPramide IVP 10 mg IVP once; over 1 to 2 minutes Route: IVP; Site: left [facility] antecubital; 17:28 Follow up: Response: No adverse reaction [facility] 16:54 Drug: diphenhydrAMINE IVP 50 mg IVP once Route: IVP; Site: left antecubital; [facility] 17:28 Follow up: Response: No adverse reaction kc6 17:38 Drug: Decadron - Dexamethasone IVP 10 mg IVP once Route: IVP; Site: left antecubital; kc6 17:59 Follow up: Response: No adverse reaction kc6 17:45 Drug: Ondansetron IVP 4 mg IVP once; over 2 minutes Route: IVP; Site: left antecubital; kc6 17:59 Follow up: Response: No adverse reaction; Nausea is decreased; Vomiting decreased kc6 Medication: 18:07 VIS not applicable for this client. kc6 Intake: 17:28 IV: 1000ml; Total: 1000ml. kc6 Outcome: 17:28 Discharge ordered by . ec2 18:07 Discharged to home ambulatory, with family, kc6 18:07 Condition: good 18:07 Discharge instructions given to patient, family, Instructed on discharge instructions, follow up and referral plans. medication usage, Demonstrated understanding of instructions, follow-up care, medications, Prescriptions given X 2, 18:08 Patient left the ED. kc6 Signatures: Dispatcher [employer] Dasha Lucero RN RN kc6 Bridgette Alba Edwin, MD MD ec2 Boogie Castro RN RN tm6 [place] , [place] [id number]
[2024-05-28] MEDS ORDERED: ONDANSETRON 4 MG/2 ML VIAL ONE (17:34)
--- NOTE | 2024-05-28 18:02 | RAD REPORT ---
EXAMINATION: ONE VIEW CHEST XR CLINICAL INDICATION: Female, 74 years old.,CHEST PAIN TECHNIQUE: Frontal chest projection is submitted. Examination is limited by patient positioning and t echnique. COMPARISON: 05/02/2024. FINDINGS: The lungs are well inflated and clear. No pneumothorax or sizable effusion. The heart is normal in s ize. IMPRESSION: No acute intrathoracic abnormalities.
[2024-05-28 21:05] VITALS: O2SAT 95
[2024-05-28 21:07] VITALS: BP 182/91; TEMP 96.6
--- NOTE | 2024-05-31 12:02 | EKG ---
Test Date: 2024-05-28 Test Time: 16:34:54 Bee Keeper: KINGA MEASUREMENT RESULTS: Intervals: Rate: 64 GA: 176 QRSD: 82 QT: 416 QTc: 429 [place]: P: 23 GA: 176 QRS: -15 T: -31 INTERPRETIVE STATEMENTS: Normal sinus rhythm with sinus arrhythmia Minimal voltage criteria for LVH, may be normal variant Possible Anterior infarct, age undetermined Abnormal ECG Compared to ECG 05/02/2024 12:28:40 Left ventricular hypertrophy now present Myocardial infarct finding now present Sinus bradycardia no longer present T-wave abnormality no longer present Possible ischemia no longer present Electronically Signed On 05-31-24 11:54:36 CDT by Damon Mcgrath
== END 2024-05-28 18:08 | disposition home or self-care (01) ==
LOC: ER 15:48
DX: F41.9 Anxiety disorder, unspecified (principal); R51.9 Headache, unspecified; R11.2 Nausea with vomiting, unspecified; E11.9 Type 2 diabetes mellitus without complications; I10 Essential (primary) hypertension
CPT/HCPCS: 93005; 85025; 80048; 36415; 84484; 71045; J2765; J1200; J1100; J2405; J7030; 96361; 96374; 96375; 99285

== ENCOUNTER 2024-06-11 07:30 | Emergency (ER) | payer OTHER ==
[2024-06-11] MEDS ORDERED: ASPIRIN 81 MG CHEWABLE TABLET ONE (07:41)
[2024-06-11 07:59] LABS: Absolute Eosinophils 0.4 K/uL (0-0.5); Absolute Lymphocytes (CBC) 1.9 K/uL (0.7-4.9); Absolute Monocytes 0.3 K/uL (0.1-1.3); Absolute Neutrophil 4.3 K/uL (1.8-8.0); Basophils % 0.7 % (0-1.3); Eosinophils % 6.1 % (0-4.4); Hematocrit 38.4 % (36.0-45.0); Lymphocytes % 27.6 % (15.3-44.8); MCH 32.2 pg (27.0-35.0); MCHC 33.9 g/dL (32.0-36.0); MCV 95.1 fL (80-100); MPV 8.3 fL (7.6-11.3); Monocytes % 4.4 % (3.3-12.3); Neutrophils % 61.2 % (41.7-73.7); Platelets 276 thou/uL (152-406); RBC Red Blood Cell Count 4.04 M/uL (3.86-4.86); Red Cell Distribution Width 13.3 % (12.1-15.2)
--- NOTE | 2024-06-11 08:18 | RAD REPORT ---
EXAMINATION: ONE VIEW CHEST XR CLINICAL INDICATION: CHEST PAIN TECHNIQUE: Frontal chest projection is submitted. Examination is limited by patient positioning and t echnique. COMPARISON: 05/28/2024 FINDINGS: The lungs are well inflated and clear. The heart is normal in size. No displaced fractures identified . IMPRESSION: No acute intrathoracic abnormalities.
[2024-06-11 08:21] LABS: Anion Gap 8.5 mEq/L (5.0-15.0); Potassium 3.5 mEq/L (3.5-5.1); Troponin High Sensitivity 8.6 pg/mL (<58.9)
[2024-06-11] MEDS ORDERED: LORAZEPAM 0.5 MG TABLET ONE (08:45)
--- NOTE | 2024-06-11 10:14 | EDPHYS ---
Physician Documentation [facility] Name: Katya Hinojosa Age: 74 yrs Sex: Female : 1950 Arrival Date: 06/11/2024 Time: 07:30 Bed 6 Private MD: ED Physician Santosh Lo HPI: 06/11 10:00 This 74 yrs old Female presents to ER via Ambulatory with complaints of Chest ms3 Pressure - 1 week, Anxiety, Weakness - Of legs, Headache, Nausea. 10:00 74-year-old female with past medical history of diabetes, hyperlipidemia, hypertension, ms3 hypothyroidism presents to the emergency department for generalized weakness, chest pain that has been ongoing for 2 weeks. Patient endorses shortness of breath and nausea. Patient denies vomiting. She denies any alleviating or inciting factors. HPI obtained through clinical studies specialist Ady #[id number]. Historical: - Allergies: 07:38 No Known Allergies; iw - PMHx: 07:38 Diabetes - NIDDM; High Cholesterol; Hypertension; Hypothyroidism; iw - PSHx: 07:38 Kidney surgery; Thyroidectomy; iw - Immunization history:: Adult Immunizations up to date. - Infectious Disease History:: Denies. - Social history:: Smoking status: Patient denies any tobacco usage or history of. ROS: 10:00 Constitutional: Negative for fever, and chills. ms3 10:00 Respiratory: Negative for shortness of breath, cough, wheezing, and pleuritic chest pain, Abdomen/GI: Negative for abdominal pain, nausea, vomiting, diarrhea, and constipation, MS/Extremity: Negative for injury and deformity, Skin: Negative for injury, rash, and discoloration, 10:00 Cardiovascular: Positive for chest pain, Exam: 10:00 Constitutional: This is a well developed, well nourished patient who is awake, alert, ms3 and in no acute distress. Neck: Trachea midline, no cervical lymphadenopathy. Supple, full range of motion without nuchal rigidity, or vertebral point tenderness. No Meningismus. Chest/axilla: Normal chest wall appearance and motion. Nontender with no deformity. Cardiovascular: Regular rate and rhythm with a normal S1 and S2. No gallops, murmurs, or rubs. Normal PMI, no JVD. No pulse deficits. Respiratory: Lungs have equal breath sounds bilaterally, clear to auscultation and percussion. No rales, rhonchi or wheezes noted. No increased work of breathing, no retractions or nasal flaring. Abdomen/GI: Soft, non-tender, with normal bowel sounds. No distension or tympany. No guarding or rebound. No evidence of tenderness throughout. Skin: Warm, dry with normal turgor. Normal color with no rashes, no lesions, and no evidence of cellulitis. 10:02 ECG was reviewed by the Attending Physician. ms3 Vital Signs: 07:36 BP 146 / 73; Pulse 64; Resp 16; Temp 98.1; Pulse Ox 97% on R/A; Weight 85.73 kg; Height iw 5 ft. 5 in. ; Pain 8/10; 09:16 BP 155 / 56; Pulse 49; Resp 16; Pulse Ox 100% on R/A; mb9 10:29 BP 148 / 74; Pulse 55; Resp 16; Pulse Ox 98% on R/A; mb9 07:36 Body Mass Index 31.45 (85.73 kg, 165.1 cm) iw 07:36 Pain Scale: Adult iw MDM: 08:18 Medical Screening Exam initiated ms3 10:00 Differential diagnosis: abnormal EKG, acute myocardial infarction, coronary artery ms3 disease. The patient was given aspirin in the Emergency Department. 10:14 HEART Score: History: Slightly Suspicious (0), ECG: Normal (0), Age: > or = 65 years ms3 (2), Risk Factors: > or = 3 Risk factors for atherosclerotic disease (2), [Hypercholesterolemia] [Hypertension] [DM] Troponin: < or = 1 x Normal Limit (0), Total Score = 4. Data reviewed: vital signs, nurses notes, lab test result(s), EKG, radiologic studies, and as a result, I will discharge patient. I considered the following discharge prescriptions or medication management in the emergency department Medications were administered in the Emergency Department. See MAR. Independent interpretation of the following test(s) in the Emergency Department EKG: See my EKG interpretation above. Counseling: I had a detailed discussion with the patient and/or guardian regarding the historical points, exam findings, and any diagnostic results supporting the discharge/admit diagnosis, lab results, radiology results, the need for outpatient follow up, to return to the emergency department if symptoms worsen or persist or if there are any questions or concerns that arise at home. Special discussion: Based on the patient's history, exam, and Dx evaluation, there is no indication for emergent intervention or inpatient Tx. It is understood by the patient/guardian that if the Sx's persist or worsen they need to return immediately for re-evaluation. ED course: Patient with symptoms for 2 weeks. Discussed necessity for patient to follow-up with her primary care physician and cardiology in 2 to 3 days. Return precautions discussed include worsening symptoms, or any other concerns. Patient understood and agreed with plan. Discharge instructions given via clinical studies specialist Brandy #[id number].. 06/11 07:34 Order name: Basic Metabolic Panel; Complete Time: 09:59 ms3 06/11 07:34 Order name: CBC with Diff; Complete Time: 08:19 ms3 06/11 07:34 Order name: Troponin HS; Complete Time: 09:59 ms3 06/11 08:18 Order name: BNP; Complete Time: 09:59 ms3 06/11 07:34 Order name: XRAY Chest (1 view); Complete Time: 08:19 ms3 06/11 07:34 Order name: EKG; Complete Time: 07:35 ms3 06/11 07:34 Order name: Cardiac monitoring; Complete Time: 07:56 ms3 06/11 07:34 Order name: EKG - Nurse/Tech; Complete Time: 07:56 ms3 06/11 07:34 Order name: IV Saline Lock; Complete Time: 07:58 ms3 06/11 07:34 Order name: Labs collected and sent; Complete Time: 07:58 ms3 06/11 07:34 Order name: O2 Per Protocol; Complete Time: 07:58 ms3 06/11 07:34 Order name: O2 Sat Monitoring; Complete Time: 07:58 ms3 EC:02 Rate is 54 beats/min. Rhythm is regular. Left axis deviation noted. [place] interval is ms3 normal. QRS interval is normal. Clinical impression: Sinus bradycardia. Interpreted by me. Reviewed by me. Administered Medications: 07:58 Drug: Aspirin PO Chewable Tablet 324 mg PO once; 81 mg tablets x 4 Route: PO; mb9 09:04 Follow up: Response: No adverse reaction mb9 09:04 Drug: LORazepam PO 0.5 mg PO once Route: PO; mb9 10:30 Follow up: Response: No adverse reaction mb9 Disposition Summary: 06/11/24 10:13 Discharge Ordered Notes: Location: Home ms3 Condition: Stable ms3 Diagnosis - Chest pain, unspecified ms3 - Muscle weakness (generalized) ms3 Followup: ms3 - With: Mike Zamudio DO - When: 2 - 3 days - Reason: Recheck today's complaints Followup: ms3 - With: Keyshawn Rm MD - When: 2 - 3 days - Reason: Recheck today's complaints Discharge Instructions: - Discharge Summary Sheet ms3 - Nonspecific Chest Pain, Adult ms3 - Weakness, [id number] ms3 Forms: - Medication Reconciliation Form ms3 - Antibiotic Education ms3 - Prescription Opioid Use ms3 - Patient Portal Instructions ms3 - Leadership Thank You Letter ms3 - Work release form mb9 Signatures: Dispatcher [employer] Soraya Valle RN RN iw Sims, Marcus, DO DO ms3 Zainab Prater RN RN mb9
--- NOTE | 2024-06-11 10:14 | ER ---
Nurse's Notes [facility] Name: Katya Hinojosa Age: 74 yrs Sex: Female : 1950 Arrival Date: 06/11/2024 Time: 07:30 Bed 6 Private MD: Diagnosis: Chest pain, unspecified;Muscle weakness (generalized) Presentation: 06/11 07:36 Chief complaint: Patient states: feels squeezing tight pain in chest and nausea, X 2 iw weeks , feels weak, like I'm going to pass out. Coronavirus screen: At this time, the client does not indicate any symptoms associated with coronavirus-19. Initial Sepsis Screen: Does the patient meet any 2 criteria? Does the patient have a suspected source of infection? No. Patient's initial sepsis screen is negative. Risk Assessment: Do you want to hurt yourself or someone else? Patient reports no desire to harm self or others. Onset of symptoms was May 28, 2024. 07:36 Method Of Arrival: Ambulatory iw 07:36 Acuity: AMAYA 3 iw Historical: - Allergies: 07:38 No Known Allergies; iw - PMHx: 07:38 Diabetes - NIDDM; High Cholesterol; Hypertension; Hypothyroidism; iw - PSHx: 07:38 Kidney surgery; Thyroidectomy; iw - Immunization history:: Adult Immunizations up to date. - Infectious Disease History:: Denies. - Social history:: Smoking status: Patient denies any tobacco usage or history of. Screenin:55 [facility] ED Fall Risk Assessment (Adult) History of falling in the last 3 months, mb9 including since admission No falls in past 3 months (0 pts) Confusion or Disorientation No (0 pts) Intoxicated or Sedated No (0 pts) Impaired Gait No (0 pts) Mobility Assist Device Used No (0 pt) Altered Elimination No (0 pt) Score/Fall Risk Level 0 - 2 = Low Risk Oriented to surroundings, Maintained a safe environment, Educated pt \T\ family on fall prevention, incl call for assistance when getting out of bed. Abuse screen: Denies threats or abuse. Nutritional screening: No deficits noted. Tuberculosis screening: No symptoms or risk factors identified. Assessment: 07:56 General: Appears in no apparent distress. Behavior is calm, cooperative. Pain: mb9 Complains of pain in chest Pain does not radiate. Quality of pain is described as pressure, Pain began 2 weeks ago Is intermittent. Neuro: Level of Consciousness is awake, alert, obeys commands, Oriented to person, place, time, situation, Appropriate for age Reports dizziness. Cardiovascular: Heart tones S1 S2 present Patient's skin is warm and dry. Rhythm is regular. Respiratory: Airway is patent Respiratory effort is even, unlabored, Respiratory pattern is regular, symmetrical, Breath sounds are clear bilaterally. GI: Abdomen is round non-distended, Bowel sounds present X 4 quads. Abd is soft and non tender X 4 quads. : No signs and/or symptoms were reported regarding the genitourinary system. EENT: No signs and/or symptoms were reported regarding the EENT system. Derm: Skin is pink, warm \T\ dry. Musculoskeletal: Range of motion: intact in all extremities. 10:29 Reassessment: No changes from previously documented assessment. Patient and/or family janice updated on plan of care and expected duration. Pain level reassessed. Patient is alert, oriented x 3, equal unlabored respirations, skin warm/dry/pink. Vital Signs: 07:36 BP 146 / 73; Pulse 64; Resp 16; Temp 98.1; Pulse Ox 97% on R/A; Weight 85.73 kg; Height iw 5 ft. 5 in. ; Pain 8/10; 09:16 BP 155 / 56; Pulse 49; Resp 16; Pulse Ox 100% on R/A; mb9 10:29 BP 148 / 74; Pulse 55; Resp 16; Pulse Ox 98% on R/A; mb9 07:36 Body Mass Index 31.45 (85.73 kg, 165.1 cm) iw 07:36 Pain Scale: Adult iw ED Course: 07:33 Patient arrived in ED. im 07:34 Santosh Lo DO is Attending Physician. ms3 07:38 Triage completed. iw 07:39 Arm band placed on. iw 07:42 Zainab Prater, SEKOU is Primary Nurse. mbKarmen 07:55 Initial lab(s) drawn, by me, sent to lab. EKG done, by ED staff, reviewed by Santosh Lo DO. Inserted saline lock: 20 gauge in left forearm, using aseptic technique. Blood collected. Flushed with 10 mL NS. 07:56 Placed in gown. Bed in low position. Call light in reach. Side rails up X 1. Provided mb9 Education on: press call light if needing anything. Client placed on continuous cardiac and pulse oximetry monitoring. NIBP monitoring applied. electronic device monitor on. Door closed. Noise minimized. Warm blanket given. Pillow given. 07:58 Basic Metabolic Panel Sent. mb9 07:58 CBC with Diff Sent. mb9 07:58 Troponin HS Sent. mb9 08:11 XRAY Chest (1 view) In Process Unspecified. EDMS 10:12 Mike Zamudio DO is Referral Physician. ms3 10:12 Keyshawn Rm MD is Referral Physician. ms3 10:29 No provider procedures requiring assistance completed. IV discontinued, intact, mb9 bleeding controlled, No redness/swelling at site. Pressure dressing applied. Administered Medications: 07:58 Drug: Aspirin PO Chewable Tablet 324 mg PO once; 81 mg tablets x 4 Route: PO; mb9 09:04 Follow up: Response: No adverse reaction mb9 09:04 Drug: LORazepam PO 0.5 mg PO once Route: PO; mb9 10:30 Follow up: Response: No adverse reaction mb9 Medication: 07:56 VIS not applicable for this client. mb9 Outcome: 10:13 Discharge ordered by . ms3 10:29 Discharged to home ambulatory, mb9 10:29 Condition: stable 10:29 Discharge instructions given to patient, Instructed on discharge instructions, follow up and referral plans. Demonstrated understanding of instructions, follow-up care, 10:30 Patient left the ED. mb9 Signatures: Dispatcher [employer] EDMS Soraya Lee RN RN iw Sims, Marcus, DO DO ms3 Zainab Prater RN RN mb9 Bridgette Alba
[2024-06-11 10:34] VITALS: TEMP 98.1
[2024-06-11 10:37] VITALS: BP 148/74; O2SAT 98
--- NOTE | 2024-06-11 12:34 | EKG ---
Test Date: 2024-06-11 Test Time: 07:51:53 Suggestion Clerk: VERNA MEASUREMENT RESULTS: Intervals: Rate: 54 ND: 178 QRSD: 78 QT: 398 QTc: 377 [place]: P: -9 ND: 178 QRS: -16 T: -14 INTERPRETIVE STATEMENTS: Sinus bradycardia with sinus arrhythmia Minimal voltage criteria for LVH, may be normal variant Nonspecific T wave abnormality Abnormal ECG Compared to ECG 05/28/2024 16:34:54 T-wave abnormality now present Sinus rhythm no longer present Myocardial infarct finding no longer present Electronically Signed On 06-11-24 12:34:06 CDT by Damon Mcgrath
== END 2024-06-11 10:30 | disposition home or self-care (01) ==
LOC: ER 07:30
DX: R07.89 Other chest pain (principal); M62.81 Muscle weakness (generalized); E11.9 Type 2 diabetes mellitus without complications; I10 Essential (primary) hypertension
CPT/HCPCS: 36415; 71045; 80048; 83880; 84484; 85025; 93005; 99284

== ENCOUNTER 2024-09-28 19:30 | Inpatient (IN) | payer OTHER ==
[2024-09-28] MEDS ORDERED: ASPIRIN 81 MG CHEWABLE TABLET ONE (19:55)
[2024-09-28 20:18] LABS: Absolute Eosinophils 0.3 K/uL (0-0.5); Absolute Lymphocytes (CBC) 3.3 K/uL (0.7-4.9); Absolute Monocytes 0.5 K/uL (0.1-1.3); Absolute Neutrophil 4.9 K/uL (1.8-8.0); Basophils % 0.5 % (0-1.3); Eosinophils % 2.8 % (0-4.4); Hematocrit 39.1 % (36.0-45.0); Hemoglobin 13.5 g/dL (12.0-15.0); Lymphocytes % 36.9 % (15.3-44.8); MCHC 34.6 g/dL (32.0-36.0); MCV 95.5 fL (80-100); MPV 7.9 fL (7.6-11.3); Monocytes % 5.7 % (3.3-12.3); Neutrophils % 54.1 % (41.7-73.7); Nucleated Red Blood Cells % 0.1 % (0-0); Platelets 290 thou/uL (152-406); Red Cell Distribution Width 13.5 % (12.1-15.2)
[2024-09-28 20:23] LABS: PT Prothrombin Time 13.6 SECONDS (9.4-12.5); Protime INR 1.3
[2024-09-28 20:38] LABS: ALT/SGPT 34 U/L (13-56); AST/SGOT 20 U/L (15-37); Albumin 3.2 g/dL (3.4-5.0); Albumin/Globulin Ratio 0.9 (1.1-1.8); Alkaline Phosphatase 117 U/L (45-117); Anion Gap 9.5 mEq/L (5.0-15.0); BUN Blood Urea Nitrogen 18 mg/dL (7-18); Bicarbonate 27 mEq/L (21-32); Bilirubin Total 0.4 mg/dL (0.2-1.0); Globulin 3.7 g/dL (2.3-3.5); Glomerular Filtration Rate 69 ml/min (=/>90); Glucose Level 264 mg/dL (74-106); Magnesium 1.9 mg/dL (1.6-2.4); NT PRO-BNP 63 pg/mL (<125); Potassium 3.5 mEq/L (3.5-5.1); Protein, Total 6.9 g/dL (6.4-8.2); Sodium Level 136 mEq/L (136-145); Troponin High Sensitivity 4.8 pg/mL (<58.9)
[2024-09-28 20:40] LABS: Bilirubin Direct < 0.2 mg/dL (0-0.2); Bilirubin Indirect, Calculated 0.2 mg/dL (0.2-0.8)
[2024-09-28] MEDS ORDERED: IBUPROFEN 200 MG TAB PO ONE (21:03)
[2024-09-28] MEDS ORDERED: ONDANSETRON 4 MG (ODT) TAB ONE (21:03)
[2024-09-28] MEDS ORDERED: HYDROCODONE/APAP 5/325 MG TAB ONE (21:04)
[2024-09-28] MEDS ORDERED: DIAZEPAM 5 MG TABLET ONE (21:05)
[2024-09-28] MEDS ORDERED: NA CHLORIDE 0.9% 1,000 ML ONE (21:05)
--- NOTE | 2024-09-28 21:36 | RAD REPORT ---
Procedure: Chest Single View HISTORY: Chest pain COMPARISON: 2023 FINDINGS: The lungs appear clear of acute infiltrate. No significant pleural effusion noted. The heart is mildly enlarged. IMPRESSION: No acute abnormality is displayed.
--- NOTE | 2024-09-28 21:47 | RAD REPORT ---
EXAM: CTA of the chest, abdomen and pelvis HISTORY: Chest and abdominal pain COMPARISON: CT abdomen 2022 TECHNIQUE: Multiple contiguous axial images were obtained a CTA of the chest and abdomen with contras t per aortic dissection protocol. Sagittal and coronal 3-D MIP reformats were performed. 100 cc Isovue-370 administered intravenously.Automated exposure control, adjustment of the mA and kV accordi ng to the patient size, and iterative reconstruction. Unless otherwise specified, incidental findings do not require dedicated imaging follow-up. FINDINGS: An aortic dissection not seen. No aortic aneurysm Celiac, SMA and GINNA do not demonstrate a significant abnormality. Renal arteries do not demonstrate a significant abnormality.4 Lungs are clear Fatty liver. Gallstones. Gallbladder wall does not appear thickened. spleen, pancreas, adrenals, bladder do not demonstrate a significant abnormality Small renal cysts. Normal appendix. Mild diastases rectus abdominis muscles. Small umbilical hernia No adnexal mass. No evidence of diverticulitis. IMPRESSION: No evidence of an aortic dissection Cholelithiasis
--- NOTE | 2024-09-28 23:52 | EDPHYS ---
Physician Documentation [facility] Name: Katya Hinojosa Age: 74 yrs Sex: Female : 1950 Arrival Date: 09/28/2024 Time: 19:30 Bed 19 Private MD: ED Physician Anjel Malik HPI: 09/28 20:06 This 74 yrs old Female presents to ER via Ambulatory with complaints of Chest sp4 Tightness. 23:47 74-year-old female with history of diabetes, cholesterolemia, hypertension, sp4 hypothyroidism presents with acute midsternal chest pressure 7 out of 10 in intensity. Patient's medications include amlodipine 2 mg daily, esomeprazole daily, apixaban 5 mg twice daily, famotidine 1 mg p.o. bedtime, sotalol 80 mg p.o. twice daily atorvastatin as well.. Historical: - Allergies: 19:47 No Known Allergies; al5 - PMHx: 19:47 Diabetes - NIDDM; High Cholesterol; Hypertension; Hypothyroidism; al5 - PSHx: 19:47 Kidney surgery; Thyroidectomy; al5 - Immunization history:: Adult Immunizations not up to date. - Infectious Disease History:: Denies. - Social history:: Smoking status: Patient denies any tobacco usage or history of. - Family history:: not pertinent. ROS: 23:47 Constitutional: Negative for fever, chills, and weight loss, positive for midsternal sp4 chest pain. 23:47 All other systems are negative, Exam: 23:47 Constitutional: This is a well developed, well nourished patient who is awake, alert, sp4 and in no acute distress. Head/Face: Normocephalic, atraumatic. Eyes: Pupils equal round and reactive to light, extra-ocular motions intact. Lids and lashes normal. Conjunctiva and sclera are not injected. Cornea within normal limits. Periorbital areas with no swelling, redness, or edema. ENT: Nares patent. No nasal discharge, no septal abnormalities noted. Tympanic membranes are normal and external auditory canals are clear. Oropharynx with no redness, swelling, or masses, exudates, or evidence of obstruction, uvula midline. Mucous membranes moist. Neck: Trachea midline, no thyromegaly or masses palpated, and no cervical lymphadenopathy. Supple, full range of motion without nuchal rigidity, or vertebral point tenderness. Chest/axilla: Normal chest wall appearance and motion. Nontender with no deformity. No lesions are appreciated. Cardiovascular: Regular rate and rhythm with a normal S1 and S2. No gallops, murmurs, or rubs. Normal PMI, no JVD. No pulse deficits. Respiratory: Lungs have equal breath sounds bilaterally, clear to auscultation and percussion. No rales, rhonchi or wheezes noted. No increased work of breathing, no retractions or nasal flaring. Abdomen/GI: Soft, with normal bowel sounds. No distension or tympany. No guarding or rebound. No evidence of tenderness throughout. Back: No spinal tenderness. No costovertebral tenderness. Skin: Warm, dry with normal turgor. Normal color with no rashes, no lesions, and no evidence of cellulitis. MS/ Extremity: Pulses equal, no cyanosis. Neurovascular intact. Full, normal range of motion. Neuro: Awake and alert, GCS 15, oriented to person, place, time, and situation. Cranial nerves II-XII grossly intact. Motor strength 5/5 in all extremities. Sensory grossly intact. Psych: Awake, alert, with orientation to person, place and time. Behavior, mood, and affect are within normal limits 23:47 ECG was reviewed by the Attending Physician. EKG at 2009 sinus bradycardia rate 57, LVH, no ST elevation or depression. Vital Signs: 19:45 BP 142 / 75; Pulse 72; Resp 18; Temp 98.3; Pulse Ox 99% on R/A; Weight 84.82 kg; Height al5 5 ft. 1 in. ; Pain 7/10; 20:47 BP 127 / 79; Pulse 57; Resp 17; Temp 98.6; Pulse Ox 97% ; ay 21:00 BP 137 / 53; Pulse 54; Resp 17; Pulse Ox 97% on R/A; ay 22:24 BP 103 / 92; Pulse 54; Resp 17; Pulse Ox 96% on R/A; ay 22:45 BP 137 / 85; Pulse 55; Resp 20; Pulse Ox 97% ; ay 09/29 00:00 BP 141 / 53; Pulse 54; Resp 18; Pulse Ox 97% ; vc1 01:00 BP 112 / 65; Pulse 55; Resp 14; Pulse Ox 94% ; vc1 09/28 19:45 Body Mass Index 35.33 (84.82 kg, 154.94 cm) al5 09/28 19:45 Pain Scale: Adult al5 MDM: 09/28 19:58 Medical Screening Exam initiated sb4 23:43 ED course: EXAM: CTA of the chest, abdomen and pelvis HISTORY: Chest and abdominal pain sp4 COMPARISON: CT abdomen 2022 TECHNIQUE: Multiple contiguous axial images were obtained a CTA of the chest and abdomen with contrast per aortic dissection protocol. Sagittal and coronal 3-D MIP reformats were performed. 100 cc Isovue-370 administered intravenously.Automated exposure control, adjustment of the mA and kV according to the patient size, and iterative reconstruction. Unless otherwise specified, incidental findings do not require dedicated imaging follow-up. FINDINGS: An aortic dissection not seen. No aortic aneurysm Celiac, SMA and GINNA do not demonstrate a significant abnormality. Renal arteries do not demonstrate a significant abnormality.4 Lungs are clear Fatty liver. Gallstones. Gallbladder wall does not appear thickened. spleen, pancreas, adrenals, bladder do not demonstrate a significant abnormality Small renal cysts. Normal appendix. Mild diastases rectus abdominis muscles. Small umbilical hernia No adnexal mass. No evidence of diverticulitis. IMPRESSION: No evidence of an aortic dissection Cholelithiasis . 23:43 ED course: Procedure: Chest Single View HISTORY: Chest pain COMPARISON: 2023 FINDINGS: sp4 The lungs appear clear of acute infiltrate. No significant pleural effusion noted. The heart is mildly enlarged. IMPRESSION: No acute abnormality is displayed. . 23:50 Differential diagnosis: acute pericarditis, anxiety, coronary artery disease chest wall sp4 pain, congestive heart failure cholecystitis. HEART Score: History: Moderately Suspicious (1), ECG: Non specific repolarization disturbance / LBTB / PM (1), Age: > or = 65 years (2), Risk Factors: > or = 3 Risk factors for atherosclerotic disease (2), Troponin: < or = 1 x Normal Limit (0), Total Score = 6. Data reviewed: vital signs, nurses notes, lab test result(s), EKG, radiologic studies, CT scan, plain films. 09/28 19:47 Order name: Basic Metabolic Panel; Complete Time: 22:46 sb4 09/28 19:47 Order name: CBC with Diff; Complete Time: 22:46 sb4 09/28 19:47 Order name: LFT's; Complete Time: 22:46 sb4 09/28 19:47 Order name: Magnesium; Complete Time: 22:46 sb4 09/28 19:47 Order name: NT PRO-BNP; Complete Time: 22:46 sb4 09/28 19:47 Order name: PT-INR; Complete Time: 22:46 sb4 09/28 19:47 Order name: Troponin HS; Complete Time: 22:46 sb4 09/28 22:47 Order name: Troponin High Sensitivity; Complete Time: 00:06 sp4 09/29 00:21 Order name: Basic Metabolic Panel EDMS 09/29 00:21 Order name: CBC with Automated Diff EDMS 09/29 00:21 Order name: Lipid Profile EDMS 09/29 00:21 Order name: Lipid Profile EDMS 09/29 00:22 Order name: Troponin High Sensitivity EDMS 09/29 00:22 Order name: Troponin High Sensitivity EDMS 09/29 00:22 Order name: Troponin High Sensitivity EDMS 09/29 00:22 Order name: Troponin High Sensitivity EDMS 09/29 00:22 Order name: Troponin High Sensitivity EDMS 09/29 05:18 Order name: Lipid Profile EDMS 09/29 08:12 Order name: Glucose, Ancillary Testing EDMS 09/29 12:23 Order name: Glucose, Ancillary Testing EDMS 09/28 19:47 Order name: XRAY Chest (1 view); Complete Time: 22:46 sb4 09/28 20:33 Order name: CT Aorta for Dissection; Complete Time: 22:46 sp4 09/28 19:47 Order name: EKG; Complete Time: 19:47 sb4 09/29 00:21 Order name: CONS Physician Consult EDMS 09/28 19:47 Order name: Cardiac monitoring; Complete Time: 20:36 sb4 09/28 19:47 Order name: EKG - Nurse/Tech; Complete Time: 20:15 sb4 09/28 19:47 Order name: IV Saline Lock; Complete Time: 20:36 sb4 09/28 19:47 Order name: Labs collected and sent; Complete Time: 20:36 sb4 09/28 19:47 Order name: O2 Per Protocol; Complete Time: 20:36 sb4 09/28 19:47 Order name: O2 Sat Monitoring; Complete Time: 20:36 sb4 EC:10 Rate is 57 beats/min. Rhythm is regular, Sinus bradycardia. QRS [place] is Normal. [place] sp4 interval is normal. QRS interval is normal. QT interval is normal. No ST changes noted. Clinical impression: No evidence of ischemia. Interpreted by me. Reviewed by me. Administered Medications: 20:09 Drug: Aspirin PO Chewable Tablet 324 mg PO once; 81 mg tablets x 4 Route: PO; 09/29 04:25 Follow up: Response: No adverse reaction 09/28 21:16 Drug: Ondansetron PO 4 mg PO once Route: PO; 09/29 04:24 Follow up: Response: No adverse reaction 09/28 21:16 Drug: NS 0.9% IV 1000 ml IV at 1 bolus Per protocol; to be given as a bolus over 60 ay minutes Route: IV; Rate: 1 bolus; Site: right antecubital; 09/29 04:24 Follow up: IV Status: Completed infusion; IV Intake: 1000ml 09/28 21:17 Drug: HYDROcodone-acetaminophen PO 5 mg-325 mg 2 tabs PO once Route: PO; 09/29 04:23 Follow up: Response: No adverse reaction 09/28 21:17 Drug: Diazepam PO 5 mg PO once Route: PO; 09/29 04:24 Follow up: Response: No adverse reaction 09/28 21:17 Drug: Ibuprofen PO 600 mg PO once Route: PO; 09/29 04:24 Follow up: Response: No adverse reaction ay 02:19 Drug: Ondansetron IVP 4 mg IVP once; over 2 minutes Route: IVP; Site: right antecubital;ay 04:23 Follow up: Response: No adverse reaction ay 02:20 Drug: morphine IVP or IV 4 mg IVP once over 4 mins Route: IVP; Infused Over: 4 mins; ay Site: right antecubital; 04:24 Follow up: Response: No adverse reaction ay 02:20 Not Given (Duplicate Order): aspirinchewable tablet 324 mg PO once; 81 mg tablets x 4 ay Disposition Summary: 09/28/24 23:52 Hospitalization Ordered Notes: Hospitalization Status: Inpatient Admission sp4 Provider: Young Valderrama sp4 Condition: Stable sp4 Problem: new sp4 Symptoms: have improved sp4 Bed/Room Type: Standard sp4 Location: Telemetry/MedSurg (Inpatient)(09/29/24 11:15) ja1 Room Assignment: 411(09/29/24 11:15) ja Diagnosis - Unstable angina sp4 - Midsternal chest pain sp4 Forms: - Medication Reconciliation Form sp4 - SBAR form sp4 - Leadership Thank You Letter sp4 Signatures: Dispatcher [employer] EDOR Santiago Cotto RN RN ja1 Cate Staples PA-C PAMilly sb4 Carmela Ling rv1 Anjel Malik MD MD sp4 Elenita Celeste RN RN al5 oLri Bianchi RN RN ay Corrections: (The following items were deleted from the chart) 00:05 09/28 23:52 Telemetry/MedSurg (Inpatient) sp4 rv1 09/29 00:05 09/28 23:52 sp4 1 09/29 00:32 00:21 CONS Physician Consult ordered. EDOR EDOR 11: 00:05 [facility] ER HOLD rv1 ja1 11: 00:05 ERHOLD- rv1 ja1
--- NOTE | 2024-09-28 23:52 | ER ---
Nurse's Notes [facility] Name: Katya Hinojosa Age: 74 yrs Sex: Female : 1950 Arrival Date: 09/28/2024 Time: 19:30 Bed 19 Private MD: Diagnosis: Unstable angina;Midsternal chest pain Presentation: 09/28 19:45 Chief complaint: Patient states: c/o sternal chest pain/tightness that radiates to the al5 L side chest for the past 2 weeks, today got worse about this afternoon. Coronavirus screen: At this time, the client does not indicate any symptoms associated with coronavirus-19. Ebola Screen: No symptoms or risks identified at this time. Initial Sepsis Screen: Does the patient meet any 2 criteria? No. Patient's initial sepsis screen is negative. Does the patient have a suspected source of infection? No. Patient's initial sepsis screen is negative. Risk Assessment: Do you want to hurt yourself or someone else? Patient reports no desire to harm self or others. Onset of symptoms was September 15, 2024. 19:45 Method Of Arrival: Ambulatory al5 19:45 Acuity: AMAYA 2 al5 Triage Assessment: 19:47 General: Appears in no apparent distress. comfortable, Behavior is calm, cooperative. al5 Pain: Complains of pain in mid-sternal area Pain radiates to anterior aspect of left upper chest Pain currently is 7 out of 10 on a pain scale. Quality of pain is described as pressure, tightness. EENT: No signs and/or symptoms were reported regarding the EENT system. Neuro: Level of Consciousness is awake, alert, obeys commands, Oriented to person, place, time, situation. Cardiovascular: Capillary refill < 3 seconds Patient's skin is warm and dry. Respiratory: Airway is patent Respiratory effort is even, unlabored, Respiratory pattern is regular, symmetrical. GI: No signs and/or symptoms were reported involving the gastrointestinal system. : No signs and/or symptoms were reported regarding the genitourinary system. Derm: Skin is intact, is healthy with good turgor, Skin is pink, warm \T\ dry. normal. Musculoskeletal: No signs and/or symptoms reported regarding the musculoskeletal system. Historical: - Allergies: 19:47 No Known Allergies; al5 - PMHx: 19:47 Diabetes - NIDDM; High Cholesterol; Hypertension; Hypothyroidism; al5 - PSHx: 19:47 Kidney surgery; Thyroidectomy; al5 - Immunization history:: Adult Immunizations not up to date. - Infectious Disease History:: Denies. - Social history:: Smoking status: Patient denies any tobacco usage or history of. - Family history:: not pertinent. Screenin:45 [facility] ED Fall Risk Assessment (Adult) History of falling in the last 3 months, ay including since admission No falls in past 3 months (0 pts) Confusion or Disorientation No (0 pts) Intoxicated or Sedated No (0 pts) Impaired Gait No (0 pts) Mobility Assist Device Used No (0 pt) Altered Elimination No (0 pt) Score/Fall Risk Level 0 - 2 = Low Risk Oriented to surroundings, Maintained a safe environment, Educated pt \T\ family on fall prevention, incl call for assistance when getting out of bed. Abuse screen: Denies threats or abuse. Nutritional screening: No deficits noted. Tuberculosis screening: No symptoms or risk factors identified. Assessment: 19:45 General: Appears in no apparent distress. uncomfortable, Behavior is calm, cooperative. ay Pain: Complains of pain in chest Pain currently is 8 out of 10 on a pain scale. Pain began 2-3 days ago. Pain: Quality of pain is described as squeezing. Pain: Pain does not radiate. Neuro: Level of Consciousness is awake, alert, obeys commands, Oriented to person, place, time, situation, Speech is normal. Cardiovascular: Reports chest pain, Capillary refill < 3 seconds Rhythm is sinus bradycardia. Respiratory: Airway is patent Respiratory effort is even, unlabored, Respiratory pattern is regular, symmetrical. GI: Abdomen is obese. : No signs and/or symptoms were reported regarding the genitourinary system. EENT: No signs and/or symptoms were reported regarding the EENT system. Derm: No signs and/or symptoms reported regarding the dermatologic system. 09/29 02:13 Reassessment: Patient appears in no apparent distress at this time. No changes from vc1 previously documented assessment. Patient and/or family updated on plan of care and expected duration. Pain level reassessed. Vital Signs: 09/28 19:45 BP 142 / 75; Pulse 72; Resp 18; Temp 98.3; Pulse Ox 99% on R/A; Weight 84.82 kg; Height al5 5 ft. 1 in. ; Pain 7/10; 20:47 BP 127 / 79; Pulse 57; Resp 17; Temp 98.6; Pulse Ox 97% ; ay 21:00 BP 137 / 53; Pulse 54; Resp 17; Pulse Ox 97% on R/A; ay 22:24 BP 103 / 92; Pulse 54; Resp 17; Pulse Ox 96% on R/A; ay 22:45 BP 137 / 85; Pulse 55; Resp 20; Pulse Ox 97% ; ay 09/29 00:00 BP 141 / 53; Pulse 54; Resp 18; Pulse Ox 97% ; vc1 01:00 BP 112 / 65; Pulse 55; Resp 14; Pulse Ox 94% ; vc1 09/28 19:45 Body Mass Index 35.33 (84.82 kg, 154.94 cm) al5 09/28 19:45 Pain Scale: Adult al5 ED Course: 09/28 19:35 Patient arrived in ED. gm2 19:45 Patient has correct armband on for positive identification. Placed in gown. Call light ay in reach. Side rails up X2. monitor worker on. Pulse ox on. NIBP on. 19:45 Inserted saline lock: 20 gauge in right antecubital area, using aseptic technique. ay Patient maintains SpO2 saturation greater than 95% on room air. 19:46 Triage completed. al5 19:48 Arm band placed on right wrist. Patient placed in waiting room, in view of staff al5 members, on pulse oximetry. 19:52 Lori Bianchi, SEKOU is Primary Nurse. ay 19:55 Cate Staples PA-C is PHCP. sb4 19:55 Wilner Beth MD is Attending Physician. sb4 20:06 Anjel Malik MD is Attending Physician. sp4 20:24 XRAY Chest (1 view) In Process Unspecified. EDMS 21:32 CT Aorta for Dissection In Process Unspecified. EDMS 23:51 Young Valderrama MD is Hospitalizing Provider. sp4 09/29 02:00 No provider procedures requiring assistance completed. vc1 02:13 Provided Education on: Admission, ER hold. vc1 02:13 Patient admitted, IV remains in place. vc1 Administered Medications: 09/28 20:09 Drug: Aspirin PO Chewable Tablet 324 mg PO once; 81 mg tablets x 4 Route: PO; ay 09/29 04:25 Follow up: Response: No adverse reaction ay 09/28 21:16 Drug: Ondansetron PO 4 mg PO once Route: PO; 09/29 04:24 Follow up: Response: No adverse reaction ay 09/28 21:16 Drug: NS 0.9% IV 1000 ml IV at 1 bolus Per protocol; to be given as a bolus over 60 ay minutes Route: IV; Rate: 1 bolus; Site: right antecubital; 09/29 04:24 Follow up: IV Status: Completed infusion; IV Intake: 1000ml ay 09/28 21:17 Drug: HYDROcodone-acetaminophen PO 5 mg-325 mg 2 tabs PO once Route: PO; 09/29 04:23 Follow up: Response: No adverse reaction ay 09/28 21:17 Drug: Diazepam PO 5 mg PO once Route: PO; 09/29 04:24 Follow up: Response: No adverse reaction ay 09/28 21:17 Drug: Ibuprofen PO 600 mg PO once Route: PO; 09/29 04:24 Follow up: Response: No adverse reaction ay 02:19 Drug: Ondansetron IVP 4 mg IVP once; over 2 minutes Route: IVP; Site: right antecubital;ay 04:23 Follow up: Response: No adverse reaction ay 02:20 Drug: morphine IVP or IV 4 mg IVP once over 4 mins Route: IVP; Infused Over: 4 mins; ay Site: right antecubital; 04:24 Follow up: Response: No adverse reaction ay 02:20 Not Given (Duplicate Order): aspirinchewable tablet 324 mg PO once; 81 mg tablets x 4 ay Medication: 02:00 VIS not applicable for this client. vc1 Intake: 04:24 IV: 1000ml; Total: 1000ml. ay Outcome: 09/28 23:52 Decision to Hospitalize by Provider. sp4 09/29 02:12 Admitted to ER Hold. Please see [facility] for further documentation. vc1 Condition: stable Instructed on the need for admit, 13:45 Patient left the ED. aa5 Signatures: Dispatcher [facility] EDAmna Cornejo RN RN aa5 Jodi Brown RN RN vc1 Cate Staples PA-C PA-C sb4 Anjel Malik MD MD sp4 Jihan Estrada gm2 Elenita Celeste, RN RN al5 Lori Bianchi RN RN ay
[2024-09-29] MEDS: ASPIRIN 325 MG TAB PO ONE (00:15)
[2024-09-29] MEDS: ENOXAPARIN 100 MG/ML SYR SQ SCH (00:15)
[2024-09-29] MEDS ORDERED: NITROGLYCERIN 0.4 MG/TAB SL PRN (00:15)
--- NOTE | 2024-09-29 00:27 | P.HP ---
Certification for Inpatient With expected LOS: >2 Midnights Practitioner: I am a practitioner with admitting privileges, knowledge of patient current condition, hospital course, and medical plan of care. Services: Services provided to patient in accordance with Admission requirements found in Title 42 Section 412.3 of the Code of Federal Regulations Patient History Date of Service: 09/29/24 Reason for admission: Retrosternal chest pain History of Present Illness: Patient is 74 years of age Mongolian-speaking only history obtained through an certified professional ergonomist she has been complaining of retrosternal chest pain for the past 2 weeks has gotten worse admitted from the emergency room slight radiation to the left arm no prior history of coronary artery disease no stents denies any other complaints no shortness of breath Allergies No Known Drug Allergies Allergy (Verified 12/22/20 14:55) Unknown Home Medications: Amlodipine [Norvasc*] 2 tab PO DAILY 02/01/23 Esomeprazole Mag Trihydrate [Nexium] 1 tab PO DAILY 02/01/23 Apixaban [Eliquis] 5 mg PO BID #60 tablet 02/03/23 Famotidine 1 tab PO BEDTIME 08/14/23 Sotalol HCl [Betapace*] 80 mg PO BID #75 tab 08/17/23 - Past Medical/Surgical History Diabetic: Yes -: HTN -: Hypothyroidism -: Diabetes mellitus -: Allergies -: Hyperlipidemia -: A-fib on chronic anticoagulation -: Thyroidectomy -: 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 Psychosocial/ Personal History: She is single, has 5 children, she works in [employer] - Family History Mother -: Diabetes, Cancer - Social History Alcohol use: No CD- Drugs: No Caffeine use: Yes Review of Systems 10-point ROS is otherwise unremarkable Physical Examination - Vital Signs Temperature: 98 F Blood Pressure: 139/85 Pulse: 54 Respirations: 18 Pulse Ox (%): 100 - Physical Exam General: Alert, In no apparent distress, Oriented x3 HEENT: Atraumatic Neck: Supple Respiratory: Clear to auscultation bilaterally Cardiovascular: No edema, Regular rate/rhythm, Normal S1 S2 Gastrointestinal: Normal bowel sounds, Soft and benign, Non-distended Musculoskeletal: No clubbing, No swelling Integumentary: No breakdown Neurological: Normal speech, Normal strength at 5/5 x4 extr - Studies Laboratory Data (last 24 hrs) 09/28/24 09/28/24 09/28/24 20:08 20:08 20:08 WBC 9.00 Hgb 13.5 Hct 39.1 Plt Count 290 PT 13.6 H INR 1.30 Sodium 136 Potassium 3.5 BUN 18 Creatinine 0.88 Glucose 264 H Magnesium 1.9 Total Bilirubin 0.4 AST 20 ALT 34 Alkaline Phosphatase 117 Assessment and Plan - Problems (Diagnosis) (1) Unstable angina Current Visit: Yes Status: Acute Plan: Patient is 74 years of age high risk for coronary artery disease diabetes hypertension admitted with 2-week history of retrosternal chest pain no prior history of coronary artery disease no evidence of dissection chest x-ray is clear labs chemistries pending I am not sure which beta-fannie she is taking patient has a low heart rate apparently was on Eliquis EKG Rate is 57 beats/min. Rhythm is regular, Sinus bradycardia. QRS [place] is Normal. [place] sp4 interval is normal. QRS interval is normal. QT interval is normal. No ST changes noted. Clinical impression: No evidence of ischemia. Interpreted by me. Reviewed by me Will admit patient start on Lovenox patient was given a dose of aspirin consult cardiology. Cardiac cath was done in 2020 shows mild coronary artery disease monitor 2 serial troponins have been negative continue to monitor possible discharge tomorrow with outpatient stress test Discharge Plan: Home Plan to discharge in: 24 Hours - Advance Directives Does patient have a Living Will: No Does patient have a Durable POA for Healthcare: No
[2024-09-29] MEDS: PANTOPRAZOLE 40MG TABLET PO SCH (00:28)
[2024-09-29] MEDS ORDERED: D10W 125 ML IV PRN (00:29)
[2024-09-29] MEDS ORDERED: GLUCAGON 1 MG/VIAL IM PRN (00:29)
[2024-09-29] MEDS ORDERED: ONDANSETRON 4 MG/2 ML VIAL ONE ×2 (02:06→10:19)
[2024-09-29] MEDS ORDERED: MORPHINE 4 MG/ML SYR ONE ×2 (02:07→10:20)
[2024-09-29] MEDS ORDERED: ENOXAPARIN 100 MG/ML SYR SQ ONE ×2 (04:31→08:49)
[2024-09-29] MEDS ORDERED: PANTOPRAZOLE 40MG TABLET PO ONE (04:31)
[2024-09-29 04:52] LABS: Absolute Eosinophils 0.3 K/uL (0-0.5); Absolute Lymphocytes (CBC) 3.3 K/uL (0.7-4.9); Absolute Monocytes 0.5 K/uL (0.1-1.3); Absolute Neutrophil 4.1 K/uL (1.8-8.0); Basophils % 0.5 % (0-1.3); Eosinophils % 3.2 % (0-4.4); Hematocrit 34.9 % (36.0-45.0); Hemoglobin 12.4 g/dL (12.0-15.0); Lymphocytes % 39.6 % (15.3-44.8); MCH 33.4 pg (27.0-35.0); MCHC 35.4 g/dL (32.0-36.0); MCV 94.3 fL (80-100); MPV 8.2 fL (7.6-11.3); Monocytes % 6.4 % (3.3-12.3); Neutrophils % 50.3 % (41.7-73.7); Nucleated Red Blood Cells % 0.1 % (0-0); Platelets 247 thou/uL (152-406); RBC Red Blood Cell Count 3.71 M/uL (3.86-4.86); Red Cell Distribution Width 13.7 % (12.1-15.2)
[2024-09-29 05:15] LABS: Anion Gap 5.6 mEq/L (5.0-15.0); Potassium 3.6 mEq/L (3.5-5.1); Troponin High Sensitivity 8.3 pg/mL (<58.9)
[2024-09-29 05:56] VITALS: BMI 31.1
[2024-09-29] MEDS ORDERED: ASPIRIN EC 81 MG TAB PO ONE (08:49)
[2024-09-29] MEDS ORDERED: METOPROLOL TAR 50 MG TAB PO SCH (09:00)
[2024-09-29] MEDS: ASPIRIN EC 81 MG TAB PO SCH (09:30)
[2024-09-29] MEDS: INSULIN REGULAR (HUMAN) 100 UNIT/ML SQ SCH (09:30)
[2024-09-29] MEDS ORDERED: INSULIN REGULAR (HUMAN) 100 UNIT/ML ONE ×2 (10:19→12:16)
[2024-09-29] MEDS: ONDANSETRON 4 MG/2 ML VIAL IV PRN (10:25)
[2024-09-29] MEDS: MORPHINE 4 MG/ML SYR IV PRN (10:25)
[2024-09-29] MEDS: ONDANSETRON 4 MG/2 ML VIAL IV STA (14:13)
[2024-09-29] MEDS: ACETAMINOPHEN 325 MG TABLET PO PRN (21:20)
--- NOTE | 2024-09-30 00:18 | P.PN ---
Subjective Date of Service: 09/29/24 Patient is a 74-year-old female who came to the hospital with chest pain. Patient's chest pain has felt like a pressure sensation. It is really not improving. She came into the emergency room for evaluation. In the ER her troponins were negative. However the pressure continued and at this time we will admit the patient to the hospital for continued evaluation. She appears to have persistent chest discomfort or pressure. She would benefit from further testing including stress test or angiogram. Will await cardiology recommendation. Review of Systems 10-point ROS is otherwise unremarkable Physical Examination - Vital Signs Temperature: 98.0 F Blood Pressure: 126/56 Pulse: 61 Respirations: 16 Pulse Ox (%): 94 - Physical Exam General: Alert, In no apparent distress, Oriented x3 HEENT: Atraumatic, PERRLA, EOMI Neck: Supple, JVD not distended Respiratory: Clear to auscultation bilaterally, Normal air movement Cardiovascular: Regular rate/rhythm, Normal S1 S2, No murmurs Gastrointestinal: Normal bowel sounds, Soft and benign, Non-distended, No tenderness Musculoskeletal: No clubbing, No swelling, No tenderness Integumentary: No rashes Neurological: Normal speech, Normal tone, Normal affect Lymphatics: No axilla or inguinal lymphadenopathy - Studies Medications List Reviewed: Yes Assessment & Plan - Problems (Diagnosis) (1) Unstable angina Current Visit: Yes Status: Acute (2) Diabetes mellitus Onset Date: 08/13/16 Current Visit: No Status: Chronic Qualifiers: Diabetes mellitus type: type 2 Diabetes mellitus 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 insulin use: without chcf use Diabetes mellitus complication status: without complication Qualified Code(s): E11.9 - Type 2 diabetes mellitus without complications (3) Hyperlipidemia Onset Date: 08/13/16 Current Visit: No Status: Chronic Qualifiers: Hyperlipidemia type: unspecified Qualified Code(s): E78.5 - Hyperlipidemia, unspecified (4) Hypertension Onset Date: 08/13/16 Current Visit: No Status: Chronic Qualifiers: Hypertension type: essential hypertension Qualified Code(s): I10 - Essential (primary) hypertension (5) Hypothyroidism Onset Date: 06/09/15 Current Visit: No Status: Chronic Qualifiers: Hypothyroidism type: postoperative Qualified Code(s): E89.0 - Postprocedural hypothyroidism - Plan 1. Serial troponins and EKG 2. Cardiology consultation 3. Echocardiogram and stress test if cardiology is agreeable 4. Anti-platelet therapy, anti coagulation, beta-fannie, statin, and O2 as needed 5. IV morphine for pain 6. Nitro p.r.n. Discharge Plan: Home Plan to discharge in: 24 Hours - Advance Directives Does patient have a Living Will: No Does patient have a Durable POA for Healthcare: No - Code Status/Comfort Care Code Status Assessed: Yes Code Status: Full Code Critical Care: No Time Spent Managing PTS Care (In Minutes): 35
[2024-09-30 06:45] VITALS: O2SAT 93
[2024-09-30 06:47] LABS: Anion Gap 6.2 mEq/L (5.0-15.0); Magnesium 2.2 mg/dL (1.6-2.4); Potassium 3.2 mEq/L (3.5-5.1); Troponin High Sensitivity 17.9 pg/mL (<58.9)
[2024-09-30] MEDS: LOSARTAN POTASSIUM 25 MG PO SCH (09:00)
[2024-09-30] MEDS: AMLODIPINE 10 MG TAB PO SCH (09:21)
[2024-09-30] MEDS: SOTALOL HCL 80 MG TAB PO SCH (09:21)
[2024-09-30] MEDS: ATORVASTATIN 10 MG TAB PO SCH (09:21)
[2024-09-30] MEDS: LEVOTHYROXINE SOD 0.125 MG TAB PO SCH (09:22)
[2024-09-30] MEDS: SERTRALINE HCL 50 MG TAB PO SCH (09:22)
[2024-09-30] MEDS: INSULIN GLARGINE 100 UNIT/ML SQ SCH (09:25)
--- NOTE | 2024-09-30 11:47 | P.PN ---
Subjective Date of Service: 09/30/24 Chief Complaint: Retrosternal chest pain No change in retrosternal pressure still has the same intensity cardiology consult daughter at the bedside Review of Systems Unremarkable Physical Examination - Vital Signs Temperature: 97.9 F Blood Pressure: 138/66 Pulse: 60 Respirations: 16 Pulse Ox (%): 98 - Physical Exam General: Alert, Oriented x3 HEENT: Atraumatic Neck: Supple Respiratory: Clear to auscultation bilaterally Cardiovascular: No edema, Regular rate/rhythm - Studies Medications List Reviewed: Yes Assessment And Plan - Current Problems (Diagnosis) (1) Unstable angina Current Visit: Yes Status: Acute Plan: Patient still continues to complain of retrosternal pressure awaiting cardiology consult at risk for coronary artery disease possible stress test tomorrow so far enzymes are negative EKG no acute ST changes Discharge Plan: Home Plan to discharge in: 24 Hours
--- NOTE | 2024-09-30 13:02 | P.CNS ---
Date of Consult: 09/30/24 Chief Complaint: Retrosternal chest pain History of Present Illness: Patient with PMH of atrial fibrillation, presented with chest pain, occasional, last for few minutes, no radiation, associated with minor palpitations, denies any other cardiac symptoms. Allergies No Known Drug Allergies Allergy (Verified 12/22/20 14:55) Unknown Home medications list reviewed: Yes Home Medications: Amlodipine [Norvasc*] 2 tab PO DAILY 02/01/23 Apixaban [Eliquis] 5 mg PO BID #60 tablet 02/03/23 Famotidine 1 tab PO BEDTIME 08/14/23 Sotalol HCl [Betapace*] 80 mg PO BID #75 tab 08/17/23 Atorvastatin Calcium 10 mg PO DAILY 09/29/24 Insulin Degludec [Tresiba] See Rx Instructions .ROUTE .COMPLEX 09/29/24 Levothyroxine [Synthroid*] 0.125 mg PO DAILY 09/29/24 Losartan Potassium 12.5 mg PO DAILY 09/29/24 Ondansetron [Zofran (Odt)*] 4 mg PO PRN PRN 09/29/24 Sertraline [Zoloft*] See Rx Instructions .ROUTE .COMPLEX 09/29/24 - Past Medical/Surgical History Diabetic: Yes -: HTN -: Hypothyroidism (thyroidectomy) -: Diabetes mellitus -: Allergies -: Hyperlipidemia -: A-fib on chronic anticoagulation -: Thyroidectomy -: 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 moist/pink, EOMI, Sclerae nonicteric Neck: Supple, 2+ carotid pulse no bruit, No LAD, Without JVD or thyroid abnormality Respiratory: Clear to auscultation bilaterally, Normal air movement Cardiovascular: Regular rate/rhythm, Normal S1 S2 Gastrointestinal: Normal bowel sounds, No tenderness Musculoskeletal: No tenderness Integumentary: No rashes Neurological: Normal gait, Normal speech, Normal tone, Normal affect Lymphatics: No axilla or inguinal lymphadenopathy - Problems (1) Atrial fibrillation Current Visit: Yes Status: Acute Plan: continue Sotalolol and Eliquis. (2) Chest pain Onset Date: 06/09/15 Current Visit: No Status: Acute Plan: patient cardiac enzymes are negative with recent negative stress test no further cardiac work up needed follow up with cardiology next week for an event monitor
--- NOTE | 2024-09-30 16:43 | P.DS ---
Admission Date: 09/29/24 Discharge Date: 09/30/24 Disposition: ROUTINE DISCHARGE Discharge Condition: GOOD Reason for Admission: Retrosternal chest pain - Problems (1) Unstable angina Current Visit: Yes Status: Acute Brief History of Present Illness: Patient is 74 years of age Rwandan-speaking only history obtained through an soap mixer she has been complaining of retrosternal chest pain for the past 2 weeks has gotten worse admitted from the emergency room slight radiation to the left arm no prior history of coronary artery disease no stents denies any other complaints no shortness of breath Hospital Course: Patient is 74 years of age admitted with atypical retrosternal chest pain by cardiology (1) Atrial fibrillation Current Visit: Yes Status: Acute Plan: continue Sotalolol and Eliquis. (2) Chest pain Onset Date: 06/09/15 Current Visit: No Status: Acute Plan: patient cardiac enzymes are negative with recent negative stress test no further cardiac work up needed follow up with cardiology next week for an event monitor Note as above to follow-up with cardiology she remained stable troponins all negative Vital Signs/Physical Exam: Temp Pulse Resp BP Pulse Ox 97.8 F 72 16 119/62 96 09/30/24 12:00 09/30/24 12:00 09/30/24 12:00 09/30/24 12:00 09/30/24 12:00 Laboratory Data at Discharge: WBC 8.20 thou/uL (4.3-10.9) 09/29/24 04:43 Hgb 12.4 g/dL (12.0-15.0) D 09/29/24 04:43 Hct 34.9 % (36.0-45.0) L 09/29/24 04:43 Plt Count 247 thou/uL (152-406) 09/29/24 04:43 PT 13.6 SECONDS (9.4-12.5) H 09/28/24 20:08 INR 1.30 09/28/24 20:08 Sodium 139 mEq/L (136-145) 09/30/24 05:47 Potassium 3.2 mEq/L (3.5-5.1) L 09/30/24 05:47 BUN 16 mg/dL (7-18) 09/30/24 05:47 Creatinine 0.65 mg/dL (0.55-1.02) 09/30/24 05:47 Glucose 144 mg/dL (74-106) H 09/30/24 05:47 Magnesium 2.2 mg/dL (1.6-2.4) 09/30/24 05:47 Total Bilirubin 0.4 mg/dL (0.2-1.0) 09/28/24 20:08 AST 20 U/L (15-37) 09/28/24 20:08 ALT 34 U/L (13-56) 09/28/24 20:08 Alkaline Phosphatase 117 U/L (45-117) 09/28/24 20:08 Triglycerides 140 mg/dL (<150) 09/29/24 04:43 Cholesterol 136 mg/dL (<200) 09/29/24 04:43 HDL Cholesterol 45 mg/dL (40-60) 09/29/24 04:43 Cholesterol/HDL Ratio 3.02 09/29/24 04:43 Home Medications: Amlodipine [Norvasc*] 2 tab PO DAILY 02/01/23 Apixaban [Eliquis] 5 mg PO BID #60 tablet 02/03/23 Famotidine 1 tab PO BEDTIME 08/14/23 Sotalol HCl [Betapace*] 80 mg PO BID #75 tab 08/17/23 Atorvastatin Calcium 10 mg PO DAILY 09/29/24 Insulin Degludec [Tresiba] See Rx Instructions .ROUTE .COMPLEX 09/29/24 Levothyroxine [Synthroid*] 0.125 mg PO DAILY 09/29/24 Losartan Potassium 12.5 mg PO DAILY 09/29/24 Ondansetron [Zofran (Odt)*] 4 mg PO PRN PRN 09/29/24 Sertraline [Zoloft*] See Rx Instructions .ROUTE .COMPLEX 09/29/24 Followup: Mike Zamudio, DO [Primary Care Provider] - Keyshawn Rm MD [ACTIVE - CAN ADMIT] -
[2024-09-30 17:15] VITALS: BP 117/72; TEMP 98
--- NOTE | 2024-10-08 12:44 | EKG ---
Test Date: 2024-09-28 Test Time: 20:10:52 Button Cutting Machine Operator: BLAKE MEASUREMENT RESULTS: Intervals: Rate: 57 SD: 186 QRSD: 80 QT: 396 QTc: 385 [place]: P: 28 SD: 186 QRS: -9 T: -20 INTERPRETIVE STATEMENTS: Sinus bradycardia Moderate voltage criteria for LVH, may be normal variant Cannot rule out Septal infarct, age undetermined Abnormal ECG Compared to ECG 06/11/2024 07:51:53 Myocardial infarct finding now present Sinus arrhythmia no longer present T-wave abnormality no longer present Electronically Signed On 10-08-24 12:23:02 ENGINE TESTING SUPERVISOR by Damon Mcgrath
== END 2024-09-30 17:07 | disposition home or self-care (01) | DRG 311 ==
LOC: ER 19:30 → ERHOLD 09-29 00:15 → 4TH 09-29 12:26
PROVIDERS: ADMIT Internal Medicine Sleep Medicine; ATTEND Hospitalist
DX: I20.0 Unstable angina (principal); I48.20 Chronic atrial fibrillation, unspecified; E89.0 Postprocedural hypothyroidism; E11.9 Type 2 diabetes mellitus without complications; Z79.4 Long term (current) use of insulin; I10 Essential (primary) hypertension; Z79.01 Long term (current) use of anticoagulants; E78.5 Hyperlipidemia, unspecified
CPT/HCPCS: 36415; 71045; 71275; 74175; 80048; 80061; 80076; 82947; 83735; 83880; 84484; 85025; 85610; 93005; 96361; 96374; 96375; 99285; J1650; J2405; J7030; Q0162; Q9967

== ENCOUNTER 2024-12-01 18:47 | Emergency (ER) | payer OTHER ==
[2024-12-01] MEDS ORDERED: KETOROLAC 30 MG/ML INJ ONE (19:44)
[2024-12-01] MEDS ORDERED: DIPHENHYDRAMINE 50 MG/ML VIAL ONE (19:45)
[2024-12-01] MEDS ORDERED: METOCLOPRAMIDE 10 MG/2mL INJ ONE (19:45)
[2024-12-01] MEDS ORDERED: NA CHLORIDE 0.9% 500 ML ONE (19:45)
[2024-12-01 20:00] LABS: Absolute Eosinophils 0.3 K/uL (0-0.5); Absolute Lymphocytes (CBC) 3.1 K/uL (0.7-4.9); Absolute Monocytes 0.7 K/uL (0.1-1.3); Absolute Neutrophil 6.2 K/uL (1.8-8.0); Basophils % 0.4 % (0-1.3); Eosinophils % 3.1 % (0-4.4); Hemoglobin 14.6 g/dL (12.0-15.0); Lymphocytes % 29.7 % (15.3-44.8); MCH 33.2 pg (27.0-35.0); MCHC 34.7 g/dL (32.0-36.0); MCV 95.5 fL (80-100); MPV 8.1 fL (7.6-11.3); Monocytes % 7.1 % (3.3-12.3); Neutrophils % 59.7 % (41.7-73.7); Nucleated Red Blood Cells % 0.1 % (0-0); Platelets 326 thou/uL (152-406); Red Cell Distribution Width 13.2 % (12.1-15.2)
[2024-12-01 20:08] LABS: Albumin 3.3 g/dL (3.4-5.0); Albumin/Globulin Ratio 0.9 (1.1-1.8); Anion Gap 6.6 mEq/L (5.0-15.0); Bilirubin Total 0.3 mg/dL (0.2-1.0); Globulin 3.7 g/dL (2.3-3.5); Potassium 3.6 mEq/L (3.5-5.1)
--- NOTE | 2024-12-01 20:28 | EDPHYS ---
Physician Documentation [facility] Name: Katya Hinojosa Age: 74 yrs Sex: Female : 1950 Arrival Date: 12/01/2024 Time: 18:47 Bed 14 Private MD: ED Physician Anjel Malik HPI: 12/01 19:07 This 74 yrs old Female presents to ER via Ambulatory with complaints of sp4 Headache, Nausea. 12/02 19:38 Patient with a past medical history diabetes, hypercholesterolemia hypothyroidism sp4 hypertension presents with acute onset posterior headache. Associated with nausea. Historical: - Allergies: 12/01 18:58 No Known Allergies; ld1 - PMHx: 18:58 Diabetes - NIDDM; High Cholesterol; Hypertension; Hypothyroidism; ld1 - PSHx: 18:58 Kidney surgery; Thyroidectomy; ld1 - Immunization history:: Adult Immunizations up to date. - Infectious Disease History:: Denies. - Social history:: Smoking status: Patient denies any tobacco usage or history of. - Family history:: not pertinent. ROS: 12/02 19:38 Constitutional: Negative for fever, chills, and weight loss, sp4 Constitutional: Positive for Positive for acute headache, positive for nausea, All other systems are negative, Exam: 19:38 Constitutional: This is a well developed, well nourished patient who is awake, alert, sp4 and in no acute distress. Head/Face: Normocephalic, atraumatic. Eyes: Pupils equal round and reactive to light, extra-ocular motions intact. Lids and lashes normal. Conjunctiva and sclera are not injected. Cornea within normal limits. Periorbital areas with no swelling, redness, or edema. ENT: Nares patent. No nasal discharge, no septal abnormalities noted. Tympanic membranes are normal and external auditory canals are clear. Oropharynx with no redness, swelling, or masses, exudates, or evidence of obstruction, uvula midline. Mucous membranes moist. Neck: Trachea midline, no thyromegaly or masses palpated, and no cervical lymphadenopathy. Supple, full range of motion without nuchal rigidity, or vertebral point tenderness. Chest/axilla: Normal chest wall appearance and motion. Nontender with no deformity. No lesions are appreciated. Cardiovascular: Regular rate and rhythm with a normal S1 and S2. No gallops, murmurs, or rubs. Normal PMI, no JVD. No pulse deficits. Respiratory: Lungs have equal breath sounds bilaterally, clear to auscultation and percussion. No rales, rhonchi or wheezes noted. No increased work of breathing, no retractions or nasal flaring. Abdomen/GI: Soft, with normal bowel sounds. No distension or tympany. No guarding or rebound. No evidence of tenderness throughout. Back: No spinal tenderness. No costovertebral tenderness. Skin: Warm, dry with normal turgor. Normal color with no rashes, no lesions, and no evidence of cellulitis. MS/ Extremity: Pulses equal, no cyanosis. Neurovascular intact. Full, normal range of motion. Neuro: Awake and alert, GCS 15, oriented to person, place, time, and situation. Cranial nerves II-XII grossly intact. Motor strength 5/5 in all extremities. Sensory grossly intact. Vital Signs: 12/01 18:57 BP 119 / 84; Pulse 76; Resp 18; Temp 97.3(TE); Pulse Ox 98% on R/A; Weight 83.91 kg; ld1 Height 5 ft. 5 in. ; Pain 9/10; 20:49 BP 130 / 89; Pulse 79; Resp 18; Temp 97.9(A); Pulse Ox 98% on R/A; Pain 0/10; kd4 18:57 Body Mass Index 30.79 (83.91 kg, 165.1 cm) ld1 18:57 Pain Scale: Adult ld1 20:49 Pain Scale: Adult kd4 [place] Coma Score: 19:31 Eye Response: spontaneous(4). Motor Response: obeys commands(6). Verbal Response: kd4 oriented(5). Total: 15. 12/02 19:38 Eye Response: spontaneous(4). Motor Response: obeys commands(6). Verbal Response: sp4 oriented(5). Total: 15. 19:40 Eye Response: spontaneous(4). Motor Response: obeys commands(6). Verbal Response: sp4 oriented(5). Total: 15. MDM: 12/01 19:12 Medical Screening Exam initiated sp4 12/02 19:40 Differential diagnosis: cluster headache, migraine, sinusitis, tension headache, sp4 vasomotor headache. Data reviewed: vital signs, nurses notes, old medical records, lab test result(s). Consideration of Admission/Observation Escalation of care including admission/observation considered. ED course: Patient's headache has improved. Patient stable for discharge home. 12/01 19:11 Order name: CBC with Diff; Complete Time: 20:14 sp4 12/01 19:11 Order name: CMP; Complete Time: 20:14 sp4 12/01 19:11 Order name: IV Saline Lock; Complete Time: 19:57 sp4 12/01 19:11 Order name: Labs collected and sent; Complete Time: 19:57 sp4 Administered Medications: 12/01 19:57 Drug: TORadol - Ketorolac IVP 15 mg IVP once Route: IVP; Site: left antecubital; kd4 20:27 Follow up: Response: No adverse reaction kd4 19:57 Drug: metoCLOPramide IVP 10 mg IVP once; over 1 to 2 minutes Route: IVP; Site: left kd4 antecubital; 20:26 Follow up: Response: No adverse reaction kd4 20:30 Follow up: Response: No adverse reaction kd4 19:57 Drug: diphenhydrAMINE IVP 25 mg IVP once Route: IVP; Site: left antecubital; kd4 20:26 Follow up: Response: No adverse reaction kd4 19:57 Drug: NS 0.9% IV 500 ml 500 ml IV at 1 bolus once; to be given as a bolus over 30 kd4 minutes Volume: 500 ml; Route: IV; Rate: 1 bolus; Site: left antecubital; 20:26 Follow up: Response: No adverse reaction kd4 20:50 Follow up: IV Status: Completed infusion kd4 20:47 Drug: traMADol PO 50 mg PO once Route: PO; kd4 20:47 Follow up: Response: No adverse reaction kd4 Disposition Summary: 12/01/24 20:28 Discharge Ordered Notes: Location: Home sp4 Problem: new sp4 Symptoms: have improved sp4 Condition: Stable sp4 Diagnosis - Acute tension type headache, acute nausea without vomiting sp4 - Episodic tension-type headache, not intractable sp4 Followup: sp4 - With: Private Physician - When: 7 - 10 days - Reason: Recheck today's complaints Discharge Instructions: - Discharge Summary Sheet sp4 - General Headache Without Cause, [id number] sp4 Forms: - Patient Portal Instructions sp4 Prescriptions: - Fioricet 50-300-40 mg Oral capsule - take 1 capsule ORAL route every 8 hours PRN headache; 30 capsule; Refills: 0, sp4 Product Selection Permitted Signatures: Dispatcher [employer] Wendie Pierce RN RN ld1 Anjel Malik MD MD sp4 Cecily Abdi RN RN kd4
--- NOTE | 2024-12-01 20:28 | ER ---
Nurse's Notes [facility] Name: Katya Hinojosa Age: 74 yrs Sex: Female : 1950 Arrival Date: 12/01/2024 Time: 18:47 Bed 14 Private MD: Diagnosis: Acute tension type headache, acute nausea without vomiting ;Episodic tension-type headache, not intractable Presentation: 12/01 18:57 Chief complaint: Patient states: Headache X 3 weeks. Pt c/o upper back pain \\T\\ nausea. ld1 "My head hurts so bad.". Coronavirus screen: At this time, the client does not indicate any symptoms associated with coronavirus-19. Ebola Screen: No symptoms or risks identified at this time. Initial Sepsis Screen: Does the patient meet any 2 criteria? No. Patient's initial sepsis screen is negative. Does the patient have a suspected source of infection? No. Patient's initial sepsis screen is negative. Risk Assessment: Do you want to hurt yourself or someone else? Patient reports no desire to harm self or others. Onset of symptoms was December 01, 2024. 18:57 Method Of Arrival: Ambulatory ld1 18:57 Acuity: AMAYA 3 ld1 Triage Assessment: 18:58 Headache History: The patient has had previous headaches and this one is similar to ld1 previous episodes. General: Appears in no apparent distress. comfortable, Behavior is calm, cooperative, appropriate for age. Pain: Complains of pain in face Pain does not radiate. Pain currently is 9 out of 10 on a pain scale. Quality of pain is described as throbbing, Pain began suddenly, Also complains of nausea. EENT: No signs and/or symptoms were reported regarding the EENT system. Neuro: Level of Consciousness is awake, alert, obeys commands, Oriented to person, place, time, situation. Cardiovascular: Capillary refill < 3 seconds Patient's skin is warm and dry. Respiratory: Airway is patent Respiratory effort is even, unlabored. GI: Abdomen is round non-distended, Reports nausea. : No signs and/or symptoms were reported regarding the genitourinary system. Derm: No signs and/or symptoms reported regarding the dermatologic system. Musculoskeletal: No signs and/or symptoms reported regarding the musculoskeletal system. Historical: - Allergies: 18:58 No Known Allergies; ld1 - PMHx: 18:58 Diabetes - NIDDM; High Cholesterol; Hypertension; Hypothyroidism; ld1 - PSHx: 18:58 Kidney surgery; Thyroidectomy; ld1 - Immunization history:: Adult Immunizations up to date. - Infectious Disease History:: Denies. - Social history:: Smoking status: Patient denies any tobacco usage or history of. - Family history:: not pertinent. Screenin:31 [facility] ED Fall Risk Assessment (Adult) History of falling in the last 3 months, kd4 including since admission No falls in past 3 months (0 pts) Confusion or Disorientation No (0 pts) Intoxicated or Sedated No (0 pts) Impaired Gait No (0 pts) Mobility Assist Device Used No (0 pt) Altered Elimination No (0 pt) Score/Fall Risk Level 0 - 2 = Low Risk. Abuse screen: Denies threats or abuse. Nutritional screening: No deficits noted. Tuberculosis screening: No symptoms or risk factors identified. Assessment: 19:31 Pain: Complains of pain in HEAD Pain currently is 9 out of 10 on a pain scale. Is kd4 lasting more than 1 hour. Alleviated by medications. Neuro: No deficits noted. Respiratory: Denies shortness of breath. GI: Reports nausea. : No deficits noted. 20:10 General: sheet metal technician id [id number] used for assessment, patient with c/o of headache kd4 9/10 x 3 weeks with nausea, denies CP ,sob.. Vital Signs: 18:57 BP 119 / 84; Pulse 76; Resp 18; Temp 97.3(TE); Pulse Ox 98% on R/A; Weight 83.91 kg; ld1 Height 5 ft. 5 in. ; Pain 9/10; 20:49 BP 130 / 89; Pulse 79; Resp 18; Temp 97.9(A); Pulse Ox 98% on R/A; Pain 0/10; kd4 18:57 Body Mass Index 30.79 (83.91 kg, 165.1 cm) ld1 18:57 Pain Scale: Adult ld1 20:49 Pain Scale: Adult kd4 [place] Coma Score: 19:31 Eye Response: spontaneous(4). Motor Response: obeys commands(6). Verbal Response: kd4 oriented(5). Total: 15. 04/20 19:38 Eye Response: spontaneous(4). Motor Response: obeys commands(6). Verbal Response: sp4 oriented(5). Total: 15. 19:40 Eye Response: spontaneous(4). Motor Response: obeys commands(6). Verbal Response: sp4 oriented(5). Total: 15. ED Course: 12/01 18:50 Patient arrived in ED. im 18:58 Triage completed. ld1 18:58 Arm band placed on right wrist. ld1 19:07 Anjel Malik MD is Attending Physician. sp4 19:31 Cecily Abdi, SEKOU is Primary Nurse. kd4 19:31 Patient has correct armband on for positive identification. Bed in low position. Call kd4 light in reach. Side rails up X2. 19:31 Initial lab(s) drawn, by me, sent to lab. Inserted saline lock: 20 gauge in left kd4 antecubital area, using aseptic technique. 20:10 Client placed on continuous cardiac and pulse oximetry monitoring. NIBP monitoring kd4 applied. outside machinist supervisor on. Pulse ox on. NIBP on. 20:47 No provider procedures requiring assistance completed. IV discontinued. kd4 20:49 Provided Education on: discharge. kd4 Administered Medications: 19:57 Drug: TORadol - Ketorolac IVP 15 mg IVP once Route: IVP; Site: left antecubital; kd4 20:27 Follow up: Response: No adverse reaction kd4 19:57 Drug: metoCLOPramide IVP 10 mg IVP once; over 1 to 2 minutes Route: IVP; Site: left kd4 antecubital; 20:26 Follow up: Response: No adverse reaction kd4 20:30 Follow up: Response: No adverse reaction kd4 19:57 Drug: diphenhydrAMINE IVP 25 mg IVP once Route: IVP; Site: left antecubital; kd4 20:26 Follow up: Response: No adverse reaction kd4 19:57 Drug: NS 0.9% IV 500 ml 500 ml IV at 1 bolus once; to be given as a bolus over 30 kd4 minutes Volume: 500 ml; Route: IV; Rate: 1 bolus; Site: left antecubital; 20:26 Follow up: Response: No adverse reaction kd4 20:50 Follow up: IV Status: Completed infusion kd4 20:47 Drug: traMADol PO 50 mg PO once Route: PO; kd4 20:47 Follow up: Response: No adverse reaction kd4 Medication: 20:49 VIS not applicable for this client. kd4 Outcome: 20:28 Discharge ordered by . sp4 20:47 Discharged to home ambulatory, Patient states family is coming to pick her, education kd4 given by and this RN not to drive. 20:47 Condition: stable 20:47 Discharge instructions given to patient, Instructed on discharge instructions, follow up and referral plans. Demonstrated understanding of instructions, follow-up care, medications, Prescriptions given X 1, 20:51 Patient left the ED. kd4 Signatures: Wendie Lo RN RN ld1 Anjel Malik MD MD sp4 Bridgette Alba Karim RN RN kd4
[2024-12-01] MEDS ORDERED: TRAMADOL HCL 50 MG TAB ONE (20:33)
[2024-12-01 20:58] VITALS: O2SAT 98
[2024-12-01 20:59] VITALS: BP 130/89; TEMP 97.9
== END 2024-12-01 20:51 | disposition home or self-care (01) ==
LOC: ER 18:47
DX: G44.219 Episodic tension-type headache, not intractable (principal); R11.0 Nausea
CPT/HCPCS: 85025; 36415; 80053; J2765; J1200; J7040; 96361; 96374; 96375; 99285

== ENCOUNTER 2024-12-17 08:34 | Emergency (ER) | payer OTHER ==
[2024-12-17] MEDS ORDERED: NA CHLORIDE 0.9% 500 ML ONE (09:12)
[2024-12-17] MEDS ORDERED: METOCLOPRAMIDE 10 MG/2mL INJ ONE (09:12)
[2024-12-17 09:15] LABS: Absolute Eosinophils 0.3 K/uL (0-0.5); Absolute Lymphocytes (CBC) 2.3 K/uL (0.7-4.9); Absolute Monocytes 0.5 K/uL (0.1-1.3); Absolute Neutrophil 4.7 K/uL (1.8-8.0); Basophils % 0.4 % (0-1.3); Eosinophils % 3.3 % (0-4.4); Hematocrit 36.1 % (36.0-45.0); Hemoglobin 12.8 g/dL (12.0-15.0); Lymphocytes % 29.9 % (15.3-44.8); MCH 33.3 pg (27.0-35.0); MCHC 35.4 g/dL (32.0-36.0); MPV 8.1 fL (7.6-11.3); Monocytes % 6.3 % (3.3-12.3); Neutrophils % 60.1 % (41.7-73.7); Nucleated Red Blood Cells % 0.1 % (0-0); Platelets 288 thou/uL (152-406); RBC Red Blood Cell Count 3.84 M/uL (3.86-4.86); Red Cell Distribution Width 13.3 % (12.1-15.2)
--- NOTE | 2024-12-17 09:15 | RAD REPORT ---
EXAM: CT brain without contrast HISTORY: STROKE ALERT COMPARISON: 06/27/2024 TECHNIQUE: Multiple contiguous axial images were obtained and a CT of the brain without contrast. Sag ittal and coronal reformats were performed. One or more of the following dose reduction techniques were used: Automated exposure control, adjust ment of the mA and/or kV according to patient size, and/or iterative reconstruction. FINDINGS: No evidence of hydrocephalus, intracranial hemorrhage, or extra-axial fluid collection. Mild brain atrophy is present. No evidence of midline shift or areas of brain edema. The calvarium is intact. The visualized paranasal sinuses and mastoid air cells are essentially clear . IMPRESSION: No evidence of acute intracranial abnormality. The findings were communicated with ER physician at 12/17/2024 9:13 AM by telephone.
[2024-12-17 09:25] LABS: PT Prothrombin Time 14.5 SECONDS (10-13.0); PTT, Activated Partial Thromb 35.2 SECONDS (27.2-37.4); Protime INR 1.29
--- NOTE | 2024-12-17 09:25 | RAD REPORT ---
EXAMINATION: CTA HEAD CLINICAL INDICATION: Headache;Dizziness TECHNIQUE: Axial CT images were obtained through the head after intravenous contrast utilizing angio raph protocol with 3D post-processing (maximum intensity projection images, volume rendered images and/or shaded surface rendered images). One or more of the following dose reduction technique s were used: Automated exposure control, adjustment of the mA and/or kV according to patient size, and/or iterative reconstruction. Unless otherwise specified, incidental findings do not require dedic ated imaging follow-up. COMPARISON: No prior exam. FINDINGS: ICA: The petrous, cavernous, and supraclinoid segments of the bilateral internal carotid arteries are normal. The ophthalmic artery origins are visualized and normal. The posterior communicating arteries are patent. BETH: Anterior cerebral arteries are normal bilaterally. The anterior communicating artery is patent. MCA: Middle cerebral arteries are normal bilaterally. GOSPEL WORKER: Posterior cerebral arteries are normal bilaterally. Vertebrobasilar: The vertebral arteries are patent. The basilar artery is normal in appearance. 3D images confirm these findings. IMPRESSION: No significant flow abnormality is identified.
--- NOTE | 2024-12-17 09:31 | RAD REPORT ---
EXAMINATION: CTA NECK CLINICAL INDICATION: ULRICH, dizziness TECHNIQUE: Axial CT images were obtained from the aortic arch to the skull base after intravenous con trast utilizing angiographic protocol with 3D post-processing (maximum intensity projection images, volume rendered images and/or shaded surface rendered images). One or more of the following dose redu ction techniques were used: Automated exposure control, adjustment of the mA and/or kV according to patient size, and/or iterative reconstruction. Unless otherwise specified, incidental findings do not require dedicated imaging follow-up. COMPARISON: No prior exam. FINDINGS: AORTA: The imaged aortic arch is normal. CCA: The common carotid arteries are patent and normal in caliber. ICA/ECA: Small focus of hard plaque is seen distal left common carotid artery. Both internal carotid arteries take a retropharyngeal course. No significant carotid stenosis is seen bilaterally. VERTEBRAL: The cervical vertebral arteries are patent. The left vertebral artery is mildly dominant. SOFT TISSUE: No significant neck soft tissue abnormalities. The visualized lung apices are clear. 3D images confirm these findings. IMPRESSION: No significant carotid stenosis is seen. NASCET criteria used. Mild 0-49% stenosis Moderate 50-69% stenosis Severe 70-99% stenosis
--- NOTE | 2024-12-17 09:36 | RAD REPORT ---
EXAMINATION: ONE VIEW CHEST XR CLINICAL INDICATION: ULRICH dizziness TECHNIQUE: Frontal chest projection is submitted. Examination is limited by patient positioning and t echnique. COMPARISON: 09/28/2024 FINDINGS: The lungs are well inflated and clear. The heart is upper limit of normal in size. No displaced fract ures identified. IMPRESSION: No acute intrathoracic abnormalities.
[2024-12-17 10:04] LABS: Anion Gap 7.5 mEq/L (5.0-15.0); Potassium 3.5 mEq/L (3.5-5.1); Troponin High Sensitivity 6.3 pg/mL (<58.9)
--- NOTE | 2024-12-17 10:43 | RAD REPORT ---
EXAMINATION: MRI BRAIN WITHOUT CONTRAST CLINICAL INDICATION: ULRICH, dizzy, right leg numbness TECHNIQUE: Multiplanar multisequence MR images of the brain were obtained without intravenous contras t. Unless otherwise specified, incidental findings do not require dedicated imaging follow-up. COMPARISON: 12/17/2024 CT head FINDINGS: INTRACRANIAL: Diffusion-weighted images show no acute or early subacute infarction. No abnormal brain parenchymal signal. The ventricles are normal in size and morphology. No augmented susceptibility. There is no mass effect or midline shift. No abnormal extraaxial fluid collection. VASCULATURE: Normal signal voids in the larger intracranial arteries and dural venous sinuses. SINUSES: The paranasal sinuses and mastoid air cells are predominantly clear. BONE: The marrow signal pattern is within normal limits. IMPRESSION: Negative for acutre CVA or other acute intracranial finding.
--- NOTE | 2024-12-17 10:57 | EDPHYS ---
Physician Documentation [facility] Name: Katya Hinojosa Age: 74 yrs Sex: Female : 1950 Arrival Date: 12/17/2024 Time: 08:34 Bed 5 Private MD: ED Physician Simon Chen HPI: 12/17 08:55 This 74 yrs old Female presents to ER via Ambulatory with complaints of rn Dizziness, Headache, Nausea, Numbness - of leg. 08:55 Patient reports woke up with headache, dizziness and right thigh numbness. No weakness. rn Patient reports symptoms were present upon awakening. Last known normal was last night prior to bed. Patient reports her headache feels identical to previous headaches and now dizziness and leg numbness have completely resolved. Currently reports only headache. No vision changes or slurred speech. No chest pain. No shortness of breath. No abdominal or back pain.. 09:41 The patient presents with dizziness, lightheadedness. Onset: The symptoms/episode rn began/occurred this morning. Modifying factors: The symptoms are alleviated by nothing, the symptoms are aggravated by nothing. Severity of symptoms: At their worst the symptoms were mild in the emergency department the symptoms have resolved. The patient has experienced similar episodes in the past. Historical: - Allergies: 08:56 No Known Allergies; jl7 - PMHx: 08:56 Diabetes - NIDDM; High Cholesterol; Hypertension; Hypothyroidism; jl7 - PSHx: 08:56 Kidney surgery; Thyroidectomy; jl7 - Immunization history:: Adult Immunizations unknown. - Infectious Disease History:: Denies. - Social history:: Smoking status: Patient denies any tobacco usage or history of. - Family history:: not pertinent. - Hospitalizations: : No recent hospitalization is reported. ROS: 09:41 Constitutional: Negative for fever, chills, and weight loss, Eyes: Negative for injury, rn pain, redness, and discharge, ENT: Negative for injury, pain, and discharge, Neck: Negative for injury, pain, and swelling, Cardiovascular: Negative for chest pain, palpitations, and edema, Respiratory: Negative for shortness of breath, cough, wheezing, and pleuritic chest pain, Abdomen/GI: Negative for abdominal pain,vomiting, diarrhea, and constipation, Back: Negative for injury and pain, MS/Extremity: Negative for injury and deformity, Skin: Negative for injury, rash, and discoloration, Neuro: Positive for headache and dizziness Exam: 09:40 ECG was reviewed by the Attending Physician. rn 09:41 Constitutional: This is a well developed, well nourished patient who is awake, alert, rn and in no acute distress. Head/Face: Normocephalic, atraumatic. Eyes: Pupils equal round and reactive to light, extra-ocular motions intact. Lids and lashes normal. Conjunctiva and sclera are non-icteric and not injected. Cornea within normal limits. Periorbital areas with no swelling, redness, or edema. Neck: Neck supple, no meningismus Cardiovascular: Regular rate and rhythm. No pulse deficits. Respiratory: No increased work of breathing, no retractions or nasal flaring. Abdomen/GI: Soft, non-tender MS/ Extremity: Pulses equal, no cyanosis. Neurovascular intact. Full, normal range of motion. Equal circumference. Neuro: Awake and alert, GCS 15, oriented to person, place, time, and situation. Cranial nerves II-XII grossly intact. Motor strength 5/5 in all extremities. Sensory grossly intact. Cerebellar exam normal. Normal gait. Vital Signs: 08:51 BP 155 / 97; Pulse 60; Resp 15; Pulse Ox 100% ; Weight 87.54 kg; jl7 10:00 BP 145 / 85; Pulse 61; Resp 15; Pulse Ox 98% ; bp 11:30 BP 142 / 82; Pulse 66; Resp 15; Pulse Ox 100% on R/A; hb NIH Stroke Scale Scores: 09:00 NIHSS Score: 0 bp 09:15 NIHSS Score: 0 es3 09:42 NIHSS Score: 0 rn MDM: 08:46 Medical Screening Exam initiated rn 10:55 Differential diagnosis: cardiac arrhythmia, CVA, generalized weakness, hypovolemia, rn idiopathic dizziness, near-syncope, TIA, vertigo. Data reviewed: vital signs, nurses notes, lab test result(s), EKG, radiologic studies, CT scan, MRI, and as a result, I will discharge patient. Counseling: I had a detailed discussion with the patient and/or guardian regarding the historical points, exam findings, and any diagnostic results supporting the discharge/admit diagnosis, the presence of at least one elevated blood pressure reading (>120/80) during this emergency department visit, lab results, radiology results, the need for outpatient follow up, to return to the emergency department if symptoms worsen or persist or if there are any questions or concerns that arise at home. Response to treatment: the patient's symptoms have markedly improved after treatment, and as a result, I will discharge patient. Special discussion: I have referred the patient to see his PCP for further evaluation of high blood pressure. I discussed with the patient/guardian in detail that at this point there is no indication for admission to the hospital. It is understood, however, that if the symptoms persist or worsen the patient needs to return immediately for re-evaluation. Based on the history and exam findings, there is no indication for further emergent testing or inpatient evaluation. I discussed with the patient/guardian the need to see the neurologist for further evaluation of the symptoms. I discussed with the patient/guardian the need to see the primary care provider for further evaluation of the symptoms. 10:55 ED course: CT head, CT angio head and neck, MRI brain all without acute findings. rn Patient improved. I have personally reviewed all of the results, including but not limited to blood tests and imaging deemed necessary to safely discharge this patient at this time. All results given to and printed out for patient. I personally went over all the results with the patient and answered all questions. Patient will follow-up with PCP and or specialist as discussed. Return precautions given and understood.. 12/17 08:55 Order name: Basic Metabolic Panel; Complete Time: 10:18 rn 12/17 08:55 Order name: CBC with Diff; Complete Time: 09:39 12/17 08:55 Order name: High Sensitivity Troponin; Complete Time: 10:18 rn 12/17 08:55 Order name: Protime (+inr); Complete Time: 09:39 rn 12/17 08:55 Order name: Ptt, Activated; Complete Time: 09:12/17 09:24 Order name: Glucose, Ancillary Testing; Complete Time: 09:39 EDMS 12/17 08:55 Order name: CT Head Angio; Complete Time: 09:39 rn 12/17 08:55 Order name: CT Neck Angio; Complete Time: 09:39 rn 12/17 08:55 Order name: CT Stroke Brain w/o Contrast; Complete Time: 09:39 rn 12/17 08:55 Order name: Stroke CXR 1 View; Complete Time: 09:39 rn 12/17 08:55 Order name: Brain Wo Cont MRI; Complete Time: 10:52 rn 12/17 08:55 Order name: Accucheck; Complete Time: 09:05 rn 12/17 08:55 Order name: Cardiac monitoring; Complete Time: 09:42 rn 12/17 08:55 Order name: EKG - Nurse/Tech; Complete Time: 09:42 rn 12/17 08:55 Order name: IV Saline Lock; Complete Time: 09:05 rn 12/17 08:55 Order name: Labs collected and sent; Complete Time: 09:04 rn 12/17 08:55 Order name: NPO; Complete Time: 09:04 rn 12/17 08:55 Order name: O2 Per Protocol; Complete Time: 09: rn 12/17 08:55 Order name: O2 Sat Monitoring; Complete Time: 09:04 rn 12/17 08:55 Order name: Stroke Swallow Screen; Complete Time: 09:04 rn EC:40 Rate is 61 beats/min. Rhythm is regular. QRS [place] is Normal. CO interval is normal. QRS rn interval is normal. QT interval is normal. No Q waves. T waves are Normal. No ST changes noted. Clinical impression: NSR w/ Non-specific ST/T Changes. Interpreted by me. Reviewed by me. Administered Medications: 09:15 Drug: NS 0.9% IV 500 ml 500 ml IV at 1 bolus once; to be given as a bolus over 30 bp minutes Volume: 500 ml; Route: IV; Rate: 1 bolus; Site: right forearm; 09:40 Follow up: Response: No adverse reaction; IV Status: Completed infusion; IV Intake: hb 500ml 09:15 Drug: metoCLOPramide IVP 10 mg IVP once; over 1 to 2 minutes Route: IVP; Site: right bp forearm; 10:00 Follow up: Response: No adverse reaction hb Disposition Summary: 12/17/24 10:57 Discharge Ordered Notes: Location: Home rn Problem: new rn Symptoms: have improved rn Condition: Stable rn Diagnosis - Headache rn - Dizziness and giddiness rn Followup: rn - With: Private Physician - When: As needed - Reason: Recheck today's complaints, Re-evaluation by your physician Discharge Instructions: - Discharge Summary Sheet rn - Dizziness rn - General Headache Without Cause rn - Hypertension, Adult rn Forms: - Work release form bd - Medication Reconciliation Form rn - Antibiotic veneer jointer 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 Dysarthria (speech clarity - read or repeat words) - 0(Normal) 11. Extinction and Inattention (visual/tactile/auditory/spatial/personal) - 0(No abnormality) 1a. Level of Consciousness (LOC) - 0(Alert) 1b. Level of Consciousness (LOC) (Month \T\ Age) - 0(Both) 1c. LOC Commands (Open \T\ Closes Eyes/Radiology Technician) - 0(Both) 2. Best Gaze (Lateral Gaze Paresis) - 0(Normal) 3. Visual Field Loss - 0(No visual loss) 4. Facial Palsy - 0(Normal) 5a. Left Arm: Motor (10-second hold) - 0(No drift) 5b. Right Arm: Motor (10-second hold) - 0(No drift) 6a. Left Leg: Motor (5-second hold - always test supine) - 0(No drift) 6b. Right Leg: Motor (5-second hold - always test supine) - 0(No drift) 7. Limb Ataxia (finger/nose \T\ heel/cruz - test with eyes open) - 0(Absent) 8. Sensory Loss (pinprick arms/legs/face) - 0(Normal) 9. Best Language: Aphasia (description/naming/reading) - 0(No aphasia) Initials: bp NIH Stroke Scale - NIH Stroke Score Date: 12/17/2024 Time: 09:15 Total Score = 0 10. Dysarthria (speech clarity - read or repeat words) - 0(Normal) 11. Extinction and Inattention (visual/tactile/auditory/spatial/personal) - 0(No abnormality) 1a. Level of Consciousness (LOC) - 0(Alert) 1b. Level of Consciousness (LOC) (Month \T\ Age) - 0(Both) 1c. LOC Commands (Open \T\ Closes Eyes/Radiology Technician) - 0(Both) 2. Best Gaze (Lateral Gaze Paresis) - 0(Normal) 3. Visual Field Loss - 0(No visual loss) 4. Facial Palsy - 0(Normal) 5a. Left Arm: Motor (10-second hold) - 0(No drift) 5b. Right Arm: Motor (10-second hold) - 0(No drift) 6a. Left Leg: Motor (5-second hold - always test supine) - 0(No drift) 6b. Right Leg: Motor (5-second hold - always test supine) - 0(No drift) 7. Limb Ataxia (finger/nose \T\ heel/cruz - test with eyes open) - 0(Absent) 8. Sensory Loss (pinprick arms/legs/face) - 0(Normal) 9. Best Language: Aphasia (description/naming/reading) - 0(No aphasia) Initials: es3 NIH Stroke Scale - NIH Stroke Score Date: 12/17/2024 Time: 09:42 Total Score = 0 10. Dysarthria (speech clarity - read or repeat words) - 0(Normal) 11. Extinction and Inattention (visual/tactile/auditory/spatial/personal) - 0(No abnormality) 1a. Level of Consciousness (LOC) - 0(Alert) 1b. Level of Consciousness (LOC) (Month \T\ Age) - 0(Both) 1c. LOC Commands (Open \T\ Closes Eyes/Radiology Technician) - 0(Both) 2. Best Gaze (Lateral Gaze Paresis) - 0(Normal) 3. Visual Field Loss - 0(No visual loss) 4. Facial Palsy - 0(Normal) 5a. Left Arm: Motor (10-second hold) - 0(No drift) 5b. Right Arm: Motor (10-second hold) - 0(No drift) 6a. Left Leg: Motor (5-second hold - always test supine) - 0(No drift) 6b. Right Leg: Motor (5-second hold - always test supine) - 0(No drift) 7. Limb Ataxia (finger/nose \T\ heel/cruz - test with eyes open) - 0(Absent) 8. Sensory Loss (pinprick arms/legs/face) - 0(Normal) 9. Best Language: Aphasia (description/naming/reading) - 0(No aphasia) Initials: rn Signatures: Dispatcher [employer] EDMS Simon Chen MD MD rn Leal, Jahala, RN RN jl7 Tai Croft RN RN bp Baxter, Heather RN Corrections: (The following items were deleted from the chart) 08:55 08:55 BASIC METABOLIC PANEL+C.LAB.BRZ ordered. EDMS EDMS 08:55 08:55 CBC+H.LAB.BRZ ordered. EDMS EDMS 08:55 08:55 Troponin High Sensitivity+C.LAB.BRZ ordered. EDMS EDMS 08:55 08:55 PROTIME (+INR)+COAG.LAB.BRZ ordered. EDMS EDMS 08:55 08:55 PTT, ACTIVATED+COAG.LAB.BRZ ordered. EDMS EDMS 08:55 08:55 Head Angio+CT.RAD.BRZ ordered. EDMS EDMS 08:55 08:55 Neck Angio+CT.RAD.BRZ ordered. EDMS EDMS 08:55 08:55 CT-STROKE BRAIN W/O CONTRAST+CT.RAD.BRZ ordered. EDMS EDMS 08:55 08:55 Chest Single View+RAD.RAD.BRZ ordered. EDMS EDMS
--- NOTE | 2024-12-17 10:57 | ER ---
Nurse's Notes [facility] Name: Katya Hinojosa Age: 74 yrs Sex: Female : 1950 Arrival Date: 12/17/2024 Time: 08:34 Bed 5 Private MD: Diagnosis: Headache;Dizziness and giddiness Presentation: 12/17 08:51 Chief complaint: Patient states: Woke up with [place] and pressure in ears, reports tingling jl7 to right upper thigh and mild dizziness on waking that has resolved. Coronavirus screen: At this time, the client does not indicate any symptoms associated with coronavirus-19. Ebola Screen: No symptoms or risks identified at this time. Initial Sepsis Screen: Does the patient meet any 2 criteria? No. Patient's initial sepsis screen is negative. Does the patient have a suspected source of infection? No. Patient's initial sepsis screen is negative. Risk Assessment: Do you want to hurt yourself or someone else? Patient reports no desire to harm self or others. Onset of symptoms is unknown. 08:51 Method Of Arrival: Ambulatory [facility] 08:51 Acuity: AMAYA 2 jl7 Triage Assessment: 08:56 Headache History: The patient has had previous headaches and this one is similar to jl7 previous episodes. General: Appears in no apparent distress. uncomfortable, Behavior is calm, cooperative, appropriate for age. Pain: Complains of pain in headache Pain began on waking. Neuro: Level of Consciousness is awake, alert, obeys commands, Oriented to person, place, time, situation. Historical: - Allergies: 08:56 No Known Allergies; jl7 - PMHx: 08:56 Diabetes - NIDDM; High Cholesterol; Hypertension; Hypothyroidism; jl7 - PSHx: 08:56 Kidney surgery; Thyroidectomy; jl7 - Immunization history:: Adult Immunizations unknown. - Infectious Disease History:: Denies. - Social history:: Smoking status: Patient denies any tobacco usage or history of. - Family history:: not pertinent. - Hospitalizations: : No recent hospitalization is reported. Screenin:15 VAN Screening: Arm Drift: Patient shows no arm weakness. Patient is VAN negative. es3 Visual Disturbance: No visual disturbance noted. Aphasia: No aphasia noted. Neglect: No neglect noted. 09:18 [place] Swallow Protocol Exclusion Criteria: Exclusion Criteria Result: Proceed Brief es3 Cognitive Screen What is your name? Normal, Where are you right now? Normal, What year is it? Normal. Oral Mechanism Examination Facial Symmetry: Normal, Motion: Normal, Lip Closure: Normal, Oral Mechanism Result: Normal. 3 oz Water Swallow Challenge: Pt able to drink all water without stopping, coughing, choking or throat clearing: Yes Result: PASS. 09:30 [facility] ED Fall Risk Assessment (Adult) History of falling in the last 3 months, bp including since admission No falls in past 3 months (0 pts) Confusion or Disorientation No (0 pts) Intoxicated or Sedated No (0 pts) Impaired Gait No (0 pts) Mobility Assist Device Used No (0 pt) Altered Elimination No (0 pt) Score/Fall Risk Level 0 - 2 = Low Risk Oriented to surroundings. Abuse screen: Denies threats or abuse. Denies injuries from another. Nutritional screening: No deficits noted. Tuberculosis screening: No symptoms or risk factors identified. Assessment: 09:00 VAN Scoring: Arm Drift: Patients demonstrates NO arm weakness. Patient is VAN Negative. bp Visual Disturbance: No visual disturbance noted. Aphasia: No aphasia noted. Neglect: No neglect noted. [place] Swallow Protocol Exclusion Criteria: Unable to remain alert for testing: No NPO for medical/surgical reason by provider order No Tracheostomy tube present No No thin liquids due to preexisting dysphagia/baseline modified diet thickened liquids No Exclusion Criteria Result: Proceed Brief Cognitive Screen What is your name? Normal, Where are you right now? Normal, What year is it? Normal. Oral Mechanism Examination Facial Symmetry: Normal, Motion: Normal, Lip Closure: Normal, Oral Mechanism Result: Normal. 3 oz Water Swallow Challenge: Pt able to drink all water without stopping, coughing, choking or throat clearing: Yes Result: PASS Notified: Simon Chen MD. TNKase (Tenecteplase) Screening: Contraindications: Rapidly improving condition or minor deficit:. 10:00 Reassessment: PT TO MRI. bp 11:45 Reassessment: Patient appears in no apparent distress at this time. Patient and/or hb family updated on plan of care and expected duration. Pain level reassessed. Patient is alert, oriented x 3, equal unlabored respirations, skin warm/dry/pink. Vital Signs: 08:51 BP 155 / 97; Pulse 60; Resp 15; Pulse Ox 100% ; Weight 87.54 kg; jl7 10:00 BP 145 / 85; Pulse 61; Resp 15; Pulse Ox 98% ; bp 11:30 BP 142 / 82; Pulse 66; Resp 15; Pulse Ox 100% on R/A; hb NIH Stroke Scale Scores: 09:00 NIHSS Score: 0 bp 09:15 NIHSS Score: 0 es3 09:42 NIHSS Score: 0 tube turner Course: 08:37 Patient arrived in ED. im 08:46 Simon Chen MD is Attending Physician. rn 08:54 Triage completed. jl7 08:54 Tai Croft, SEKOU is Primary Nurse. bp 08:56 Arm band placed on right wrist. jl7 09:00 Inserted saline lock: 22 gauge in right forearm, using aseptic technique. Blood bp collected. Flushed with 10 mL NS. 09:01 Client placed on continuous cardiac and pulse oximetry monitoring. NIBP monitoring hb applied. imaging manager on. Pulse ox on. NIBP on. 09:09 CT Stroke Brain w/o Contrast In Process Unspecified. EDMS 09:10 CT Head Angio In Process Unspecified. EDMS 09:10 CT Neck Angio In Process Unspecified. EDMS 09:20 Stroke CXR 1 View In Process Unspecified. EDMS 09:30 Patient has correct armband on for positive identification. bp 09:42 EKG done, by ED staff, reviewed by Simon Chen MD. zm 10:23 Brain Wo Cont MRI In Process Unspecified. EDMS 11:30 Provided Education on: followup. hb 11:30 No provider procedures requiring assistance completed. IV discontinued, intact, hb bleeding controlled, No redness/swelling at site. Pressure dressing applied. Administered Medications: 09:15 Drug: NS 0.9% IV 500 ml 500 ml IV at 1 bolus once; to be given as a bolus over 30 bp minutes Volume: 500 ml; Route: IV; Rate: 1 bolus; Site: right forearm; 09:40 Follow up: Response: No adverse reaction; IV Status: Completed infusion; IV Intake: hb 500ml 09:15 Drug: metoCLOPramide IVP 10 mg IVP once; over 1 to 2 minutes Route: IVP; Site: right bp forearm; 10:00 Follow up: Response: No adverse reaction hb Medication: 11:30 VIS not applicable for this client. hb Intake: 09:40 IV: 500ml; Total: 500ml. hb Outcome: 10:57 Discharge ordered by MD. stanley 11:46 Discharged to home ambulatory, 11:46 Condition: stable 11:46 Discharge instructions given to patient, Instructed on discharge instructions, follow up and referral plans. medication usage, Demonstrated understanding of instructions, follow-up care, medications, 11:47 Patient left the ED. NIH Stroke Scale - NIH Stroke Score Date: 12/17/2024 Time: 09:00 Total Score = 0 10. Dysarthria (speech clarity - read or repeat words) - 0(Normal) 11. Extinction and Inattention (visual/tactile/auditory/spatial/personal) - 0(No abnormality) 1a. Level of Consciousness (LOC) - 0(Alert) 1b. Level of Consciousness (LOC) (Month \T\ Age) - 0(Both) 1c. LOC Commands (Open \T\ Closes Eyes/Link Trainer) - 0(Both) 2. Best Gaze (Lateral Gaze Paresis) - 0(Normal) 3. Visual Field Loss - 0(No visual loss) 4. Facial Palsy - 0(Normal) 5a. Left Arm: Motor (10-second hold) - 0(No drift) 5b. Right Arm: Motor (10-second hold) - 0(No drift) 6a. Left Leg: Motor (5-second hold - always test supine) - 0(No drift) 6b. Right Leg: Motor (5-second hold - always test supine) - 0(No drift) 7. Limb Ataxia (finger/nose \T\ heel/cruz - test with eyes open) - 0(Absent) 8. Sensory Loss (pinprick arms/legs/face) - 0(Normal) 9. Best Language: Aphasia (description/naming/reading) - 0(No aphasia) Initials: bp NIH Stroke Scale - NIH Stroke Score Date: 12/17/2024 Time: 09:15 Total Score = 0 10. Dysarthria (speech clarity - read or repeat words) - 0(Normal) 11. Extinction and Inattention (visual/tactile/auditory/spatial/personal) - 0(No abnormality) 1a. Level of Consciousness (LOC) - 0(Alert) 1b. Level of Consciousness (LOC) (Month \T\ Age) - 0(Both) 1c. LOC Commands (Open \T\ Closes Eyes/Link Trainer) - 0(Both) 2. Best Gaze (Lateral Gaze Paresis) - 0(Normal) 3. Visual Field Loss - 0(No visual loss) 4. Facial Palsy - 0(Normal) 5a. Left Arm: Motor (10-second hold) - 0(No drift) 5b. Right Arm: Motor (10-second hold) - 0(No drift) 6a. Left Leg: Motor (5-second hold - always test supine) - 0(No drift) 6b. Right Leg: Motor (5-second hold - always test supine) - 0(No drift) 7. Limb Ataxia (finger/nose \T\ heel/cruz - test with eyes open) - 0(Absent) 8. Sensory Loss (pinprick arms/legs/face) - 0(Normal) 9. Best Language: Aphasia (description/naming/reading) - 0(No aphasia) Initials: es3 NIH Stroke Scale - NIH Stroke Score Date: 12/17/2024 Time: 09:42 Total Score = 0 10. Dysarthria (speech clarity - read or repeat words) - 0(Normal) 11. Extinction and Inattention (visual/tactile/auditory/spatial/personal) - 0(No abnormality) 1a. Level of Consciousness (LOC) - 0(Alert) 1b. Level of Consciousness (LOC) (Month \T\ Age) - 0(Both) 1c. LOC Commands (Open \T\ Closes Eyes/Link Trainer) - 0(Both) 2. Best Gaze (Lateral Gaze Paresis) - 0(Normal) 3. Visual Field Loss - 0(No visual loss) 4. Facial Palsy - 0(Normal) 5a. Left Arm: Motor (10-second hold) - 0(No drift) 5b. Right Arm: Motor (10-second hold) - 0(No drift) 6a. Left Leg: Motor (5-second hold - always test supine) - 0(No drift) 6b. Right Leg: Motor (5-second hold - always test supine) - 0(No drift) 7. Limb Ataxia (finger/nose \T\ heel/cruz - test with eyes open) - 0(Absent) 8. Sensory Loss (pinprick arms/legs/face) - 0(Normal) 9. Best Language: Aphasia (description/naming/reading) - 0(No aphasia) Initials: rn Signatures: Dispatcher [employer] EDSimon Morgan MD MD rn Baxter, Heather, RN RN hb Leal, Jahala, RN RN jl7 Tai Croft, RN RN Adriana Hope Itzel im Stanley, Emily, RN RN es3
[2024-12-17 12:04] VITALS: BP 142/82; O2SAT 100
== END 2024-12-17 11:47 | disposition home or self-care (01) ==
LOC: ER 08:34
DX: R51.9 Headache, unspecified (principal); R42 Dizziness and giddiness; E11.9 Type 2 diabetes mellitus without complications; I10 Essential (primary) hypertension; E78.00 Pure hypercholesterolemia, unspecified
CPT/HCPCS: 93005; 85025; 80048; 36415; 85610; 82947; 85730; 84484; 70496; 70498; 70450; 71045; 70551; Q9967; J2765; J7040; 96374; 99285

== ENCOUNTER 2025-05-20 05:22 | Emergency (ER) | payer OTHER ==
[2025-05-20] MEDS ORDERED: DIPHENHYDRAMINE 50 MG/ML VIAL ONE (06:00)
[2025-05-20] MEDS ORDERED: KETOROLAC 30 MG/ML INJ ONE (06:00)
[2025-05-20] MEDS ORDERED: NA CHLORIDE 0.9% 100 ML ONE (06:00)
[2025-05-20] MEDS ORDERED: METOCLOPRAMIDE 10 MG/2mL INJ ONE (06:00)
[2025-05-20] MEDS ORDERED: CYCLOBENZAPRINE 10 MG TAB ONE (06:11)
[2025-05-20] MEDS ORDERED: HYDROCODONE/APAP 5/325 MG TAB ONE (06:11)
[2025-05-20] MEDS ORDERED: NA CHLORIDE 0.9% 500 ML ONE (06:12)
[2025-05-20 06:44] LABS: Absolute Lymphocytes (CBC) 2.2 K/uL (0.7-4.9); Hematocrit 38.6 % (36.0-45.0); Hemoglobin 13.7 g/dL (12.0-15.0); MCH 33.3 pg (27.0-35.0); MCHC 35.5 g/dL (32.0-36.0); MCV 93.7 fL (80-100); MPV 8.6 fL (7.6-11.3); Nucleated RBC Absolute Count 0.0 (0-0); Nucleated Red Blood Cells % 0.1 % (0-0); RBC Red Blood Cell Count 4.12 M/uL (3.86-4.86); White Blood Count 7.70 thou/uL (4.3-10.9)
[2025-05-20 06:59] LABS: ALT/SGPT 33.0 U/L (13-56); AST/SGOT 22.0 U/L (15-37); Albumin 3.2 g/dL (3.4-5.0); Albumin/Globulin Ratio 1.0 (1.1-1.8); Alkaline Phosphatase 87.0 U/L (45-117); Anion Gap 9.7 mEq/L (5.0-15.0); BUN Blood Urea Nitrogen 16.0 mg/dL (7-18); Globulin 3.3 g/dL (2.3-3.5); Glucose Level 137.0 mg/dL (74-106); Potassium 3.7 mEq/L (3.5-5.1)
--- NOTE | 2025-05-20 07:09 | EDPHYS ---
Physician Documentation [facility] Name: Katya Hinojosa Age: 75 yrs Sex: Female : 1950 Arrival Date: 05/20/2025 Time: 05:22 Bed 6 Private MD: ED Physician Anjel Malik HPI: 05/20 05:55 This 75 yrs old Female presents to ER via Unassigned with complaints of sp4 Headache, Neck and Upper Back Pain, Arm Pain. 05:58 75-year-old female presents with moderate onset of headache and neck and upper back sp4 pain.. 06:49 MRI review from 12/17/2024 - EXAMINATION: MRI BRAIN WITHOUT CONTRAST CLINICAL sp4 INDICATION: ULRICH, dizzy, right leg numbness TECHNIQUE: Multiplanar multisequence MR images of the brain were obtained without intravenous contrast. Unless otherwise specified, incidental findings do not require dedicated imaging follow-up. COMPARISON: 12/17/2024 CT head FINDINGS: INTRACRANIAL: Diffusion-weighted images show no acute or early subacute infarction. No abnormal brain parenchymal signal. The ventricles are normal in size and morphology. No augmented susceptibility. There is no mass effect or midline shift. No abnormal extra axial fluid collection. VASCULATURE: Normal signal voids in the larger intracranial arteries and dural venous sinuses. SINUSES: The paranasal sinuses and mastoid air cells are predominantly clear. BONE: The marrow signal pattern is within normal limits. IMPRESSION: Negative for acute CVA or other acute intracranial finding. . Historical: - Allergies: 06:01 No Known Allergies; ha1 - PMHx: 06:01 Diabetes - NIDDM; High Cholesterol; Hypertension; Hypothyroidism; ha1 - PSHx: 06:01 Kidney surgery; Thyroidectomy; ha1 - Immunization history:: Adult Immunizations up to date. - Infectious Disease History:: Denies. - Family history:: not pertinent. - Social history:: Smoking status: Patient denies any tobacco usage or history of. ROS: 05:59 Constitutional: Negative for fever, chills, and weight loss, positive headache, sp4 positive neck pain and upper back pain Eyes: Negative for injury, pain, redness, and discharge, ENT: Negative for injury, pain, and discharge, 05:59 All other systems are negative, Exam: 05:59 Constitutional: This is a well developed, well nourished patient who is awake, alert, sp4 and in no acute distress. Head/Face: Normocephalic, atraumatic. Eyes: Pupils equal round and reactive to light, extra-ocular motions intact. Lids and lashes normal. Conjunctiva and sclera are not injected. Cornea within normal limits. Periorbital areas with no swelling, redness, or edema. ENT: Nares patent. No nasal discharge, no septal abnormalities noted. Tympanic membranes are normal and external auditory canals are clear. Oropharynx with no redness, swelling, or masses, exudates, or evidence of obstruction, uvula midline. Mucous membranes moist. Neck: Trachea midline, no thyromegaly or masses palpated, and no cervical lymphadenopathy. Supple, full range of motion without nuchal rigidity, or vertebral point tenderness. Chest/axilla: Normal chest wall appearance and motion. Nontender with no deformity. No lesions are appreciated. Cardiovascular: Regular rate and rhythm with a normal S1 and S2. No gallops, murmurs, or rubs. No pulse deficits. Respiratory: Lungs have equal breath sounds bilaterally, clear to auscultation and percussion. No rales, rhonchi or wheezes noted. No increased work of breathing, no retractions or nasal flaring. Abdomen/GI: Soft, with normal bowel sounds. No distension or tympany. No guarding or rebound. No evidence of tenderness throughout. Back: No spinal tenderness. No costovertebral tenderness. Skin: Warm, dry with normal turgor. Normal color with no rashes, no lesions, and no evidence of cellulitis. MS/ Extremity: Pulses equal, no cyanosis. Neurovascular intact. Full, normal range of motion. Neuro: Awake and alert, GCS 15, oriented to person, place, time, and situation. Cranial nerves II-XII grossly intact. Motor strength 5/5 in all extremities. Sensory grossly intact. Psych: Awake, alert, with orientation to person, place and time. Behavior, mood, and affect are within normal limits Vital Signs: 05:44 BP 161 / 71; Pulse 63; Resp 18 S; Temp 98.2(O); Pulse Ox 99% on R/A; Weight 88 kg; ha1 Height 5 ft. 3 in. ; 07:01 BP 140 / 47; Pulse 53; Resp 16; Pulse Ox 95% on R/A; kd3 05:44 Body Mass Index 34.37 (88.00 kg, 160.02 cm) ha1 Vance Coma Score: 05:59 Eye Response: spontaneous(4). Motor Response: obeys commands(6). Verbal Response: sp4 oriented(5). Total: 15. 06:49 Eye Response: spontaneous(4). Motor Response: obeys commands(6). Verbal Response: sp4 oriented(5). Total: 15. MDM: 05:58 Medical Screening Exam initiated sp4 05/21 02:34 Differential diagnosis: cluster headache, hyponatremia, migraine, tension headache, sp4 vasomotor headache. Data reviewed: vital signs, nurses notes, old medical records, lab test result(s). Consideration of Admission/Observation Escalation of care including admission/observation considered. ED course: Headache resolved. Stable for discharge home.. 05/20 05:58 Order name: CBC with Diff; Complete Time: 07:04 sp4 05/20 05:58 Order name: CMP; Complete Time: 07:04 sp4 05/20 05:58 Order name: IV Saline Lock; Complete Time: 05:58 sp4 05/20 05:58 Order name: Labs collected and sent; Complete Time: 05:58 sp4 Administered Medications: 05/20 06:07 Drug: TORadol - Ketorolac IVP 15 mg IVP once Route: IVP; Site: right forearm; kd3 06:07 Drug: metoCLOPramide IVP 10 mg IVP once; over 1 to 2 minutes Route: IVP; Site: right kd3 forearm; 06:08 Drug: diphenhydrAMINE IVP 25 mg IVP once Route: IVP; Site: right forearm; kd3 06:20 Drug: HYDROcodone-acetaminophen PO 5 mg-325 mg 2 tabs PO once Route: PO; ha1 06:20 Drug: Cyclobenzaprine PO 10 mg PO once Route: PO; ha1 06:20 Drug: NS 0.9% IV 500 ml 500 ml IV at 1 bolus once; to be given as a bolus over 30 ha1 minutes Volume: 500 ml; Route: IV; Rate: 1 bolus; Site: right forearm; Disposition: 05/21 02:35 Chart complete. sp4 Disposition Summary: 05/20/25 07:08 Discharge Ordered Notes: Location: Home sp4 Problem: new sp4 Symptoms: have improved sp4 Condition: Stable sp4 Diagnosis - Acute moderate tension type headache, elevated blood pressure , acute upper neck sp4 pain Followup: sp4 - With: Private Physician - When: 7 - 10 days - Reason: Recheck today's complaints Discharge Instructions: - Discharge Summary Sheet sp4 - Tension Headache, Adult, [id number] sp4 Forms: - Patient Portal Instructions sp4 - Work release form jp5 Prescriptions: - Fioricet 50-300-40 mg Oral capsule - take 1 capsule ORAL route 3 times per day as needed for pain; 30 capsule; sp4 Refills: 0, Product Selection Permitted Signatures: Dispatcher [employer] Alexa Nath RN RN kd3 Kim Cisse RN RN ha1 Anjel Malik MD MD sp4
--- NOTE | 2025-05-20 07:09 | ER ---
Nurse's Notes [facility] Name: Katya Hinojosa Age: 75 yrs Sex: Female : 1950 Arrival Date: 05/20/2025 Time: 05:22 Bed 6 Private MD: Diagnosis: Acute moderate tension type headache, elevated blood pressure , acute upper neck pain Presentation: 05/20 05:44 Chief complaint: Patient states: HEADACHE, NECK PAIN THAT RADIATES TO THE RIGHT ARM, ha1 AND NAUSEA. 05:44 Coronavirus screen: Client denies travel out of the [place] in the last 14 days. Ebola ha1 Screen: No symptoms or risks identified at this time. Initial Sepsis Screen: Does the patient meet any 2 criteria? No. Patient's initial sepsis screen is negative. Does the patient have a suspected source of infection? No. Patient's initial sepsis screen is negative. Risk Assessment: Do you want to hurt yourself or someone else? Patient reports no desire to harm self or others. Onset of symptoms was May 18, 2025. 05:44 Method Of Arrival: Ambulatory ha1 05:44 Acuity: AMAYA 3 ha1 Triage Assessment: 06:01 Headache History: The patient has had previous headaches and this one is similar to ha1 previous episodes. General: Appears uncomfortable, Behavior is calm, cooperative. Pain: Complains of pain in HEADACHE Pain currently is 9 out of 10 on a pain scale. Quality of pain is described as pressure, throbbing, Pain began 2-3 days ago. Is continuous. Neuro: Level of Consciousness is awake, alert, obeys commands, Oriented to person, place, time, situation, [employer] Education Math Teacher are equal bilaterally Moves all extremities. Full function Speech is normal. Cardiovascular: Capillary refill < 3 seconds Patient's skin is warm and dry. Respiratory: Airway is patent Respiratory effort is even, unlabored, Respiratory pattern is regular, symmetrical. GI: Abdomen is round obese, Reports nausea. : No signs and/or symptoms were reported regarding the genitourinary system. Derm: Skin is pink, warm \T\ dry. Musculoskeletal: Circulation, motion, and sensation intact. Range of motion: intact in all extremities. 07:02 Pain: Also complains of no other associated symptoms. kd3 Historical: - Allergies: 06:01 No Known Allergies; ha1 - PMHx: 06:01 Diabetes - NIDDM; High Cholesterol; Hypertension; Hypothyroidism; ha1 - PSHx: 06:01 Kidney surgery; Thyroidectomy; ha1 - Immunization history:: Adult Immunizations up to date. - Infectious Disease History:: Denies. - Family history:: not pertinent. - Social history:: Smoking status: Patient denies any tobacco usage or history of. Screenin:02 [facility] ED Fall Risk Assessment (Adult) History of falling in the last 3 months, kd3 including since admission No falls in past 3 months (0 pts) Confusion or Disorientation No (0 pts) Intoxicated or Sedated No (0 pts) Impaired Gait No (0 pts) Mobility Assist Device Used No (0 pt) Altered Elimination No (0 pt) Score/Fall Risk Level 0 - 2 = Low Risk Maintained a safe environment. Abuse screen: Denies threats or abuse. Denies injuries from another. Nutritional screening: No deficits noted. Tuberculosis screening: No symptoms or risk factors identified. Assessment: 06:04 General: SEE TRIAGE ASSESSMENT . ha1 07:01 General: Appears in no apparent distress. Behavior is calm, cooperative. Neuro: Level kd3 of Consciousness is awake, alert, obeys commands, Oriented to person, place, time, situation. Cardiovascular: Capillary refill < 3 seconds Patient's skin is warm and dry. Respiratory: Airway is patent Trachea midline Respiratory effort is even, unlabored, Respiratory pattern is regular, symmetrical. Vital Signs: 05:44 BP 161 / 71; Pulse 63; Resp 18 S; Temp 98.2(O); Pulse Ox 99% on R/A; Weight 88 kg; ha1 Height 5 ft. 3 in. ; 07:01 BP 140 / 47; Pulse 53; Resp 16; Pulse Ox 95% on R/A; kd3 05:44 Body Mass Index 34.37 (88.00 kg, 160.02 cm) ha1 Vance Coma Score: 05:59 Eye Response: spontaneous(4). Motor Response: obeys commands(6). Verbal Response: sp4 oriented(5). Total: 15. 06:49 Eye Response: spontaneous(4). Motor Response: obeys commands(6). Verbal Response: sp4 oriented(5). Total: 15. ED Course: 05:26 Patient arrived in ED. gm2 05:46 Pepe, Alexa, RN is Primary Nurse. kd3 05:55 Anjel Malik MD is Attending Physician. sp4 05:56 Inserted saline lock: 22 gauge in right forearm, using aseptic technique. Blood kd3 collected. Flushed with 10 mL NS. 06:01 Triage completed. ha1 07:02 Arm band placed on right wrist. kd3 07:18 IV discontinued, intact, bleeding controlled, No redness/swelling at site. Pressure jp5 dressing applied. Administered Medications: 06:07 Drug: TORadol - Ketorolac IVP 15 mg IVP once Route: IVP; Site: right forearm; kd3 06:07 Drug: metoCLOPramide IVP 10 mg IVP once; over 1 to 2 minutes Route: IVP; Site: right kd3 forearm; 06:08 Drug: diphenhydrAMINE IVP 25 mg IVP once Route: IVP; Site: right forearm; kd3 06:20 Drug: HYDROcodone-acetaminophen PO 5 mg-325 mg 2 tabs PO once Route: PO; ha1 06:20 Drug: Cyclobenzaprine PO 10 mg PO once Route: PO; ha1 06:20 Drug: NS 0.9% IV 500 ml 500 ml IV at 1 bolus once; to be given as a bolus over 30 ha1 minutes Volume: 500 ml; Route: IV; Rate: 1 bolus; Site: right forearm; Medication: 07:02 VIS not applicable for this client. kd3 Outcome: 07:08 Discharge ordered by . sp4 07:18 Discharged to home ambulatory, jp5 07:18 Condition: stable 07:18 Discharge instructions given to patient, Instructed on discharge instructions, follow up and referral plans. medication usage, Demonstrated understanding of instructions, follow-up care, medications, Prescriptions given X 1, 07:18 Patient left the ED. jp5 Signatures: Alexa Cantu RN RN kd3 Kim Cisse RN RN ha1 Anjel Malik MD MD sp4 Jihan Estrada 2 Belen Doan RN RN jp5
[2025-05-20 07:22] VITALS: TEMP 98.2
[2025-05-20 07:24] VITALS: BP 140/47; O2SAT 95
== END 2025-05-20 07:18 | disposition home or self-care (01) ==
LOC: ER 05:22
DX: G44.209 Tension-type headache, unspecified, not intractable (principal); M54.9 Dorsalgia, unspecified; M54.2 Cervicalgia; E11.9 Type 2 diabetes mellitus without complications; E78.5 Hyperlipidemia, unspecified; I10 Essential (primary) hypertension; E03.9 Hypothyroidism, unspecified
CPT/HCPCS: 85025; 36415; 80053; 96375; 96374; 99284; J1885; J2765; J1200; J7040